=== PATIENT | female | born 1995 | race Hispanic/Latino ===

== ENCOUNTER 2017-12-24 22:29 | Emergency (ER) | payer BC ==
--- NOTE | 2017-12-25 01:08 | EDPHYS ---
Physician Documentation [facility] Name: Thao Lang Age: 22 yrs Sex: Female : 1995 Arrival Date: 12/24/2017 Time: 22:33 Bed 30 Private MD: ED Physician Kalyan Oliva HPI: 12/25 01:05 This 22 yrs old Female presents to ER via Ambulatory with complaints of Fever, pm1 Cough, Headache. 01:05 The patient reports fever, that was measured at 99 degrees Fahrenheit. Onset: The pm1 symptoms/episode began/occurred 9 day(s) ago. Modifying factors: there are no obvious modifying factors. Associated signs and symptoms: Pertinent positives: cough, headache, sore throat, Pertinent negatives: abdominal pain, chest pain, shortness of breath, Urinary symptoms. Severity of symptoms: in the emergency department the symptoms are unchanged. The patient has not recently seen a physician. Patient with non-productive cough, runny nose, nasal congestion, headache, and low grade fever of 99 since last Saturday. Patient without any chest pain or shortness of breath. 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 - Social history:: Smoking status: Patient/guardian denies using tobacco. - Ebola Screening: : No symptoms or risks identified at this time. ROS: 12/25 01:05 Constitutional: Negative for fever, chills, and weight loss, Eyes: Negative for injury, pm1 pain, redness, and discharge. Neck: Negative for injury, pain, and swelling, Cardiovascular: Negative for chest pain, palpitations, and edema. Abdomen/GI: Negative for abdominal pain, nausea, vomiting, diarrhea, and constipation, Back: Negative for injury and pain, : Negative for injury, bleeding, discharge, and swelling, MS/Extremity: Negative for injury and deformity, Skin: Negative for injury, rash, and discoloration. ENT: Positive for nasal discharge, sore throat, nasal congestion. Respiratory: Positive for cough, Negative for shortness of breath, sputum production, wheezing. Neuro: Positive for headache. Exam: 01:05 Constitutional: This is a well developed, well nourished patient who is awake, alert, pm1 and in no acute distress. Head/Face: Normocephalic, atraumatic. Eyes: Pupils equal round and reactive to light, extra-ocular motions intact. Lids and lashes normal. Conjunctiva and sclera are non-icteric and not injected. Cornea within normal limits. Periorbital areas with no swelling, redness, or edema. 01:05 Neck: Trachea midline, no thyromegaly or masses palpated, and no cervical lymphadenopathy. Supple, full range of motion without nuchal rigidity, or vertebral point tenderness. No Meningismus. Chest/axilla: Normal chest wall appearance and motion. Nontender with no deformity. No lesions are appreciated. Cardiovascular: Regular rate and rhythm with a normal S1 and S2. No gallops, murmurs, or rubs. Normal PMI, no JVD. No pulse deficits. Respiratory: Lungs have equal breath sounds bilaterally, clear to auscultation and percussion. No rales, rhonchi or wheezes noted. No increased work of breathing, no retractions or nasal flaring. Abdomen/GI: Soft, non-tender, with normal bowel sounds. No distension or tympany. No guarding or rebound. No evidence of tenderness throughout. Back: No spinal tenderness. No costovertebral tenderness. Full range of motion. Skin: Warm, dry with normal turgor. Normal color with no rashes, no lesions, and no evidence of cellulitis. MS/ Extremity: Pulses equal, no cyanosis. Neurovascular intact. Full, normal range of motion. 01:05 ENT: External ear(s): are unremarkable, Ear canal(s): are normal, TM's: are normal, Nose: is normal, Mouth: is normal. 01:05 Neuro: Orientation: is normal, Motor: is normal, strength is normal, Sensation: is normal, no obvious gross deficits. Vital Signs: 12/24 22:58 BP 112 / 48; Pulse 84; Resp 16; Temp 98.9; Pulse Ox 100% on R/A; Weight 108.86 kg; kr2 Height 5 ft. 4 in. (162.56 cm); Pain 0/10; 12/25 00:24 BP 91 / 49; Pulse 94; Pulse Ox 98% on R/A; rv 12/24 22:58 Body Mass Index 41.20 (108.86 kg, 162.56 cm) kr2 MDM: 12/24 23:51 Patient medically screened. pm1 12/25 01:06 Data reviewed: vital signs. Data interpreted: Pulse oximetry: on room air is 98 %. pm1 Interpretation: normal. Counseling: I had a detailed discussion with the patient and/or guardian regarding: the historical points, exam findings, and any diagnostic results supporting the discharge/admit diagnosis, lab results, the need for outpatient follow up, to return to the emergency department if symptoms worsen or persist or if there are any questions or concerns that arise at home. 12/24 23:58 Order name: Flu; Complete Time: 01:01 pm1 12/24 23:58 Order name: Strep; Complete Time: 01: pm1 12/25 00:54 Order name: Throat Culture EDMS Administered Medications: No medications were administered Disposition: 04:27 Co-signature as Attending Physician, Kalyan Oliva MD I agree with the assessment and wa plan of care. Disposition: 12/25/17 01:07 Discharged to Home. Impression: Acute upper respiratory infection, unspecified. - Condition is Stable. - Discharge Instructions: Upper Respiratory Infection, Adult. - Prescriptions for Tessalon Perles 100 mg Oral Capsule - take 1 capsule by ORAL route every 8 hours As needed; 15 capsule. - Medication Reconciliation Form, Thank You Letter, Antibiotic Education, Prescription Opioid Use, Work release form form. - Follow up: Emergency Department; When: As needed; Reason: Worsening of condition. Follow up: Private Physician; When: 2 - 3 days; Reason: Recheck today's complaints, Continuance of care, Re-evaluation by your physician. - Problem is new. - Symptoms have improved. Signatures: Dispatcher [employer] EDMS Iain Gonzales, LABORATORY CHIEF LABORATORY CHIEF pm1 Kalyan Oliva MD MD wa Reaves, Karey RN RN kr2 Travis Rodriguez RN RN rv Corrections: (The following items were deleted from the chart) 01:18 01:07 12/25/2017 01:07 Discharged to Home. Impression: Acute upper respiratory rv infection, unspecified. Condition is Stable. Forms are Medication Reconciliation Form, Thank You Letter, Antibiotic Education, Prescription Opioid Use. Follow up: Emergency Department; When: As needed; Reason: Worsening of condition. Follow up: Private Physician; When: 2 - 3 days; Reason: Recheck today's complaints, Continuance of care, Re-evaluation by your physician. Problem is new. Symptoms have improved. pm1
--- NOTE | 2017-12-25 01:08 | ER ---
Nurse's Notes [facility] Name: Thao Lang Age: 22 yrs Sex: Female : 1995 Arrival Date: 12/24/2017 Time: 22:33 Bed 30 Private MD: Diagnosis: Acute upper respiratory infection, unspecified Presentation: 12/24 22:55 Presenting complaint: Patient states: She has had fever, runny nose, migraine and cough kr2 since last Saturday. Denies pain at this time. States her temperature has been around 99.3. Transition of care: patient was not received from another setting of care. Onset of symptoms was December 22, 2017. Risk Assessment: Do you want to hurt yourself or someone else? Patient reports no desire to harm self or others. Initial Sepsis Screen: Does the patient meet any 2 criteria? No. Patient's initial sepsis screen is negative. Does the patient have a suspected source of infection? No. Patient's initial sepsis screen is negative. Care prior to arrival: None. 22:55 Method Of Arrival: Ambulatory [facility] 22:55 Acuity: IZABELLA 4 kr2 Triage Assessment: 22:56 Headache History: The patient has had previous headaches and this one is similar to kr2 previous episodes. General: Appears in no apparent distress. comfortable, Behavior is calm, cooperative, appropriate for age. Pain: Denies pain. Pain currently is 0 out of 10 on a pain scale. Pain began Saturday Also complains of no other associated symptoms. EENT: Oral mucosa is moist. Reports nasal discharge that is watery since Saturday. Neuro: Level of Consciousness is awake, alert, obeys commands, Oriented to person, place, time, situation, Appropriate for age. Cardiovascular: Capillary refill < 3 seconds in bilateral fingers Patient's skin is warm and dry. Respiratory: Reports cough that is non-productive, Airway is patent Respiratory effort is even, unlabored, Respiratory pattern is regular, symmetrical. GI: Abdomen is flat, non-distended, Bowel sounds present X 4 quads. Derm: Skin is intact, is healthy with good turgor, Skin is pink, warm \T\ dry. Musculoskeletal: Circulation, motion, and sensation intact. 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 - Social history:: Smoking status: Patient/guardian denies using tobacco. - Ebola Screening: : No symptoms or risks identified at this time. Screenin:59 Abuse screen: Denies threats or abuse. Denies injuries from another. Nutritional kr2 screening: No deficits noted. Tuberculosis screening: No symptoms or risk factors identified. Fall Risk None identified. Assessment: 23:40 Reassessment: Patient appears in no apparent distress at this time. Patient and/or kr2 family updated on plan of care and expected duration. Pain level reassessed. Patient is alert, oriented x 3, equal unlabored respirations, skin warm/dry/pink. Pain: Denies pain. 12/25 00:24 Reassessment: Patient appears in no apparent distress at this time. Patient and/or rv family updated on plan of care and expected duration. Pain level reassessed. Patient is alert, oriented x 3, equal unlabored respirations, skin warm/dry/pink. Vital Signs: 12/24 22:58 BP 112 / 48; Pulse 84; Resp 16; Temp 98.9; Pulse Ox 100% on R/A; Weight 108.86 kg; kr2 Height 5 ft. 4 in. (162.56 cm); Pain 0/10; 12/25 00:24 BP 91 / 49; Pulse 94; Pulse Ox 98% on R/A; rv 12/24 22:58 Body Mass Index 41.20 (108.86 kg, 162.56 cm) [facility] ED Course: 12/24 22:33 Patient arrived in ED. al2 22:53 Jo Ann Amezquita, RN is Primary Nurse. kr2 22:56 Triage completed. kr2 22:59 Arm band placed on left wrist. kr2 22:59 Patient has correct armband on for positive identification. Bed in low position. Call kr2 light in reach. Side rails up X 1. Adult w/ patient. Pulse ox on. NIBP on. Door closed. Head of bed elevated. 23:25 Iain Gonzales NP is PHCP. pm1 23:25 Kalyan Oliva MD is Attending Physician. pm1 12/25 00:24 Awaiting lab results. rv 00:25 Flu and/or RSV swab sent to lab. Strep swab sent to lab. rv 01:17 No provider procedures requiring assistance completed. Patient did not have IV access rv during this emergency room visit. Administered Medications: No medications were administered Outcome: 01:07 Discharge ordered by . pm1 01:17 Discharged to home ambulatory. rv 01:17 Condition: good 01:17 Discharge instructions given to patient, Instructed on discharge instructions, follow up and referral plans. medication usage, Demonstrated understanding of instructions, follow-up care, medications, Prescriptions given X 1. 01:18 Patient left the ED. rv Signatures: Iain Gonzales NP STUDENT OFFICER pm1 Jo Ann Amezquita, LARON RN Nidia Adrian Ronaldo, RN RN rv Corrections: (The following items were deleted from the chart) 01:17 01:17 Discharge instructions given to patient, Instructed on discharge instructions, rv follow up and referral plans. Demonstrated understanding of instructions, follow-up care, rv
[2017-12-25 01:39] VITALS: TEMP 98.9
[2017-12-25 01:40] VITALS: BP 91/49; O2SAT 98
== END 2017-12-25 01:18 | disposition home or self-care (01) ==
LOC: ER 22:29
DX: J06.9 Acute upper respiratory infection, unspecified (principal)
CPT/HCPCS: 87070; 87081; 87804; 99283

== ENCOUNTER 2019-11-09 15:55 | Emergency (ER) | payer BC ==
--- OUTSIDE RECORDS SUMMARY | 2019-11-09 15:58 | XMS REPORT | Continuity of Care Document ---
:1995 Author Organization [facility] t Address [address] [place] [address] Dr. Cho [address] [place] [id number] Care Team Providers Name Role Phone Unavailable Unavailable Unavailable Problems This patient has no known problems. Allergies, Adverse Reactions, Alerts This patient has no known allergies or adverse reactions. Medications This patient has no known medications. Procedures This patient has no known procedures. Results This patient has no known results.
[2019-11-09 16:55] LABS: Urine Blood TRACE (NEG); Urine Glucose NEGATIVE (NEG); Urine Protein NEGATIVE (NEG); Urine pH 6.5 (5.0-7.0)
[2019-11-09 18:08] LABS: Urine Bacteria 20-50 /HPF (<20); Urine Culture Reflex Order REFLEXED; Urine RBC <5 /HPF (NONE SEEN)
--- NOTE | 2019-11-09 18:10 | EDPHYS ---
Physician Documentation [facility] Name: Thao Lang Age: 24 yrs Sex: Female : 1995 Arrival Date: 11/09/2019 Time: 15:46 Bed 19 Private MD: ED Physician Delta Patel HPI: 11/08 16:39 This 24 yrs old Female presents to ER via EMS with complaints of Urinary jr8 Problem. 16:39 Onset: The symptoms/episode began/occurred gradually, 1 week(s) ago. Associated signs jr8 and symptoms: Pertinent positives: dysuria, low back pain. Modifying factors: The patient symptoms are alleviated by nothing, the patient symptoms are aggravated by urinating . The patient has not experienced similar symptoms in the past. The patient has not recently seen a physician. Patient stated that she has had burning, urgency, frequency, and some blood in urine for about a week. Has been trying OTC medications but still without relief. Now having low back pain . 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 - Social history:: Smoking status: Patient denies any tobacco usage or history of. ROS: 16:39 Eyes: Negative for injury, pain, redness, and discharge, ENT: Negative for injury, jr8 pain, and discharge, Neck: Negative for injury, pain, and swelling, Cardiovascular: Negative for chest pain, palpitations, and edema, Respiratory: Negative for shortness of breath, cough, wheezing, and pleuritic chest pain, Abdomen/GI: Negative for abdominal pain, nausea, vomiting, diarrhea, and constipation, MS/Extremity: Negative for injury and deformity, Skin: Negative for injury, rash, and discoloration, Neuro: Negative for headache, weakness, numbness, tingling, and seizure. 16:39 Back: Positive for pain at rest, Negative for decreased range of motion, pain with movement, radiated pain. 16:39 : Positive for urinary symptoms, hematuria, burning with urination, Negative for vaginal bleeding, vaginal discharge, vaginal itching, menstrual abnormality, missed period. Exam: 16:39 Constitutional: This is a well developed, well nourished patient who is awake, alert, jr8 and in no acute distress. Cardiovascular: Regular rate and rhythm with a normal S1 and S2. No gallops, murmurs, or rubs. Normal PMI, no JVD. No pulse deficits. Respiratory: Lungs have equal breath sounds bilaterally, clear to auscultation and percussion. No rales, rhonchi or wheezes noted. No increased work of breathing, no retractions or nasal flaring. Abdomen/GI: Soft, non-tender, with normal bowel sounds. No distension or tympany. No guarding or rebound. No evidence of tenderness throughout. Skin: Warm, dry with normal turgor. Normal color with no rashes, no lesions, and no evidence of cellulitis. MS/ Extremity: Pulses equal, no cyanosis. Neurovascular intact. Full, normal range of motion. Neuro: Awake and alert, GCS 15, oriented to person, place, time, and situation. Cranial nerves II-XII grossly intact. Motor strength 5/5 in all extremities. Sensory grossly intact. Cerebellar exam normal. Normal gait. 16:39 Back: pain, is absent, ROM is normal, normal spinal alignment noted, CVA tenderness, is absent, muscle spasm, is not present. Vital Signs: 15:53 BP 142 / 85; Pulse 60; Resp 17; Temp 98.7; Pulse Ox 100% ; Pain 10/10; jl7 MDM: 16:01 Patient medically screened. 8 16:39 Data reviewed: vital signs, nurses notes, lab test result(s). Data interpreted: Pulse [facility] oximetry: on room air is 100 %. Interpretation: normal. Counseling: I had a detailed discussion with the patient and/or guardian regarding: the historical points, exam findings, and any diagnostic results supporting the discharge/admit diagnosis, lab results. 11/08 16:05 Order name: Urine Microscopic Only; Complete Time: 18:09 [facility] 11/08 16:43 Order name: Urine Dipstick--Ancillary (enter results); Complete Time: 17:42 eb 11/08 16:05 Order name: Urine Test (obtain specimen); Complete Time: 17:17 [facility] 11/08 16:05 Order name: Urine Dipstick-Ancillary (obtain specimen); Complete Time: 17:17 jl7 11/08 16:43 Order name: Urine --Ancillary (enter results); Complete Time: 17:42 eb 11/08 18:10 Order name: Urine Culture EDMO Administered Medications: No medications were administered Disposition: 11/09 05:56 Co-signature as Attending Physician, Delta Patel MD. rn Disposition: 11/09/19 18:10 Discharged to Home. Impression: Acute cystitis with hematuria. - Condition is Stable. - Discharge Instructions: Urinary Tract Infection, Adult. - Prescriptions for Bactrim DS 800- 160 mg Oral Tablet - take 1 tablet by ORAL route every 12 hours for 7 days; 14 tablet. - Medication Reconciliation Form, Thank You Letter, Antibiotic Education, Prescription Opioid Use form. - Follow up: Private Physician; When: 5 - 6 days; Reason: Recheck today's complaints, Continuance of care, Re-evaluation by your physician. - Problem is new. - Symptoms have improved. Signatures: Dispatcher [employer] EDMO Delta Patel MD MD rn Roszak, Josh, PA PA jr8 Norma Natarajan RN RN jl7 Corrections: (The following items were deleted from the chart) 11/08 18:59 18:10 11/09/2019 18:10 Discharged to Home. Impression: Acute cystitis with hematuria. jl7 Condition is Stable. Forms are Medication Reconciliation Form, Thank You Letter, Antibiotic Education, Prescription Opioid Use. Follow up: Private Physician; When: 5 - 6 days; Reason: Recheck today's complaints, Continuance of care, Re-evaluation by your physician. Problem is new. Symptoms have improved. jr8
--- NOTE | 2019-11-09 18:10 | ER ---
Nurse's Notes [facility] Name: Thao Lang Age: 24 yrs Sex: Female : 1995 Arrival Date: 11/09/2019 Time: 15:46 Bed 19 Private MD: Diagnosis: Acute cystitis with hematuria Presentation: 11/08 15:53 Chief complaint: EMS states: Burning and painful urination x 1 week. Coronavirus jl7 screen: Client denies travel out of the [place] in the last 14 days. At this time, the client does not indicate any symptoms associated with coronavirus-19. Ebola Screen: No symptoms or risks identified at this time. Initial Sepsis Screen: Does the patient meet any 2 criteria? No. Patient's initial sepsis screen is negative. Does the patient have a suspected source of infection? No. Patient's initial sepsis screen is negative. Risk Assessment: Do you want to hurt yourself or someone else? Patient reports no desire to harm self or others. Onset of symptoms was November 03, 2019. Care prior to arrival: None. 15:53 Method Of Arrival: EMS: [facility] 15:53 Acuity: IZABELLA 4 jl7 Triage Assessment: 15:46 General: Appears in no apparent distress. uncomfortable, Behavior is cooperative. Pain: jl7 Complains of pain in pelvis Pain currently is 10 out of 10 on a pain scale. Pain began x 1 month. Neuro: Level of Consciousness is awake, alert, obeys commands, Oriented to person, place, time, situation. Cardiovascular: Patient's skin is warm and dry. Respiratory: Airway is patent Respiratory effort is even, unlabored, Respiratory pattern is regular, symmetrical. : Reports burning with urination. Derm: Skin is pink, warm \T\ dry. 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 - Social history:: Smoking status: Patient denies any tobacco usage or history of. Screenin:00 Abuse screen: Denies threats or abuse. Denies injuries from another. Nutritional jl7 screening: No deficits noted. Tuberculosis screening: No symptoms or risk factors identified. Fall Risk None identified. Assessment: 16:00 General: See triage assessment. jl7 17:00 Reassessment: Patient appears in no apparent distress at this time. No changes from jl7 previously documented assessment. Patient and/or family updated on plan of care and expected duration. Pain level reassessed. Patient is alert, oriented x 3, equal unlabored respirations, skin warm/dry/pink. 18:00 Reassessment: Patient appears in no apparent distress at this time. No changes from jl7 previously documented assessment. Patient and/or family updated on plan of care and expected duration. Pain level reassessed. Patient is alert, oriented x 3, equal unlabored respirations, skin warm/dry/pink. Vital Signs: 15:53 BP 142 / 85; Pulse 60; Resp 17; Temp 98.7; Pulse Ox 100% ; Pain 10/10; jl7 ED Course: 15:46 Patient arrived in ED. jl7 15:46 Arm band placed on right wrist. jl7 15:55 Triage completed. jl7 15:59 Washington Reinoso PA is PHCP. jr8 15:59 Delta Patel MD is Attending Physician. jr8 16:00 Patient has correct armband on for positive identification. Placed in gown. Bed in low jl7 position. Call light in reach. Side rails up X 1. Pulse ox on. NIBP on. 16:00 Urine collected: clean catch specimen, clear. jl7 17:17 Norma Natarajan RN is Primary Nurse. jl7 18:58 No provider procedures requiring assistance completed. Patient did not have IV access jl7 during this emergency room visit. Administered Medications: No medications were administered Outcome: 18:10 Discharge ordered by . jr8 18:58 Discharged to home ambulatory. jl7 18:58 Condition: stable 18:58 Discharge instructions given to patient, Instructed on discharge instructions, follow up and referral plans. medication usage, Demonstrated understanding of instructions, follow-up care, medications, Prescriptions given X 1. 18:59 Patient left the ED. jl7 Signatures: Washington Reinoso PA PA jr8 Norma Natarajan, LARON RN jl7
== END 2019-11-09 18:59 | disposition home or self-care (01) ==
LOC: ER 15:55
DX: N30.01 Acute cystitis with hematuria (principal)
CPT/HCPCS: 81003; 81015; 81025; 87086; 87088; 99284

== ENCOUNTER 2020-02-22 08:20 | Emergency (ER) | payer BC ==
--- NOTE | 2020-02-22 08:51 | ER ---
Nurse's Notes [facility] Name: Thao Lang Age: 25 yrs Sex: Female : 1995 Arrival Date: 02/22/2020 Time: 08:27 Bed 19 Private MD: Diagnosis: Urinary tract infection, site not specified Presentation: 02/21 08:30 Chief complaint: Patient states: Burning with urination and frequency that began last ss night. Coronavirus screen: Client denies travel out of the [place] in the last 14 days. Ebola Screen: Patient denies exposure to infectious person. Patient denies travel to an Ebola-affected area in the 21 days before illness onset. Initial Sepsis Screen: Does the patient meet any 2 criteria? No. Patient's initial sepsis screen is negative. Does the patient have a suspected source of infection? Yes: Dysuria/Frequency/Urgency/UTI. Risk Assessment: Do you want to hurt yourself or someone else? Patient reports no desire to harm self or others. Onset of symptoms was February 21, 2020. 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 - Social history:: Smoking status: Patient denies any tobacco usage or history of. - Family history:: not pertinent. - Hospitalizations: : No recent hospitalization is reported. Screenin:34 Abuse screen: Denies threats or abuse. Denies injuries from another. Nutritional ss screening: No deficits noted. Tuberculosis screening: Never had TB. Fall Risk None identified. Assessment: 08:34 General: Appears in no apparent distress. comfortable, Behavior is calm, cooperative, ss Denies fever, feeling ill, fatigue, chills. Pain: Denies pain. Neuro: Level of Consciousness is awake, alert, obeys commands, Oriented to person, place, time, situation. Respiratory: Airway is patent Respiratory effort is even, unlabored, Respiratory pattern is regular, symmetrical. GI: Patient currently denies diarrhea, nausea, vomiting. : Reports burning with urination, urinary frequency, began last night. Derm: Skin is intact, is healthy with good turgor, Skin is pink, warm \T\ dry. normal. Musculoskeletal: Circulation, motion, and sensation intact. Range of motion: intact in all extremities, Swelling absent. Vital Signs: 08:30 Resp 16; Weight 113.4 kg; Height 5 ft. 5 in. (165.10 cm); Pain 0/10; 08:32 Pulse 72; Temp 97.6(TE); Pulse Ox 100% on R/A; ss 08:30 Body Mass Index 41.60 (113.40 kg, 165.10 cm) ED Course: 08:27 Patient arrived in ED. mr 08:31 Triage completed. 08:32 Arm band placed on left wrist. 08:34 Naya Beck, LARON is Primary Nurse. 08:34 Patient has correct armband on for positive identification. Bed in low position. Call light in reach. 08:45 Delta Patel MD is Attending Physician. rn 08:47 Urine collected: clean catch specimen, clear. 3 08:51 Urine Microscopic Only Sent. 3 09:06 No provider procedures requiring assistance completed. Patient did not have IV access ss during this emergency room visit. Administered Medications: No medications were administered Outcome: 08:50 Discharge ordered by . rn 09:06 Discharged to home ambulatory. 09:06 Condition: good 09:06 Demonstrated understanding of instructions, follow-up care, medications. 09:07 Patient left the ED. Signatures: Dena Briones mr Delta Patel MD MD rn Smirch, Shelby, RN RN Dulce Wilder [facility]
--- NOTE | 2020-02-22 08:51 | EDPHYS ---
Physician Documentation [facility] Name: Thao Lang Age: 25 yrs Sex: Female : 1995 Arrival Date: 02/22/2020 Time: 08:27 Bed 19 Private MD: ED Physician Delta Patel HPI: 02/21 08:48 This 25 yrs old Female presents to ER via Ambulatory with complaints of rn Urinary Problem. 08:48 The patient presents with urinary symptoms, dysuria. Onset: The symptoms/episode rn began/occurred last night. Modifying factors: The symptoms are alleviated by nothing, the symptoms are aggravated by urinating. Associated signs and symptoms: Pertinent negatives: fever, vaginal discharge. Severity of symptoms: At their worst the symptoms were mild, in the emergency department the symptoms are unchanged. The patient has experienced a previous episode. The patient has not recently seen a physician. 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 - Social history:: Smoking status: Patient denies any tobacco usage or history of. - Family history:: not pertinent. - Hospitalizations: : No recent hospitalization is reported. ROS: 08:48 Constitutional: Negative for fever, chills, and weight loss, Eyes: Negative for injury, rn pain, redness, and discharge, Cardiovascular: Negative for chest pain, palpitations, and edema, Respiratory: Negative for shortness of breath, cough, wheezing, and pleuritic chest pain, Abdomen/GI: Negative for abdominal pain, nausea, vomiting, diarrhea, and constipation, Back: Negative for injury and pain, : + dysuria MS/Extremity: Negative for injury and deformity, Skin: Negative for injury, rash, and discoloration, Neuro: Negative for headache, weakness, numbness, tingling, and seizure. Exam: 08:48 Constitutional: This is a well developed, well nourished patient who is awake, alert, rn and in no acute distress. Ambulatory to room. Head/Face: Normocephalic, atraumatic. Cardiovascular: Regular rate and rhythm. No pulse deficits. Respiratory: No increased work of breathing, no retractions or nasal flaring. Abdomen/GI: soft, non-tender Back: No spinal tenderness. No costovertebral tenderness. Full range of motion. Skin: Warm, dry MS/ Extremity: Pulses equal, no cyanosis. Neurovascular intact. Full, normal range of motion. Equal circumference. Neuro: Awake and alert, GCS 15 Vital Signs: 08:30 Resp 16; Weight 113.4 kg; Height 5 ft. 5 in. (165.10 cm); Pain 0/10; ss 08:32 Pulse 72; Temp 97.6(TE); Pulse Ox 100% on R/A; ss 08:30 Body Mass Index 41.60 (113.40 kg, 165.10 cm) ss MDM: 08:45 Patient medically screened. rn 08:48 Differential diagnosis: urinary tract infection. Data reviewed: vital signs, nurses rn notes, lab test result(s), urinalysis, and as a result, I will discharge patient. Counseling: I had a detailed discussion with the patient and/or guardian regarding: the historical points, exam findings, and any diagnostic results supporting the discharge/admit diagnosis, lab results, the need for outpatient follow up, to return to the emergency department if symptoms worsen or persist or if there are any questions or concerns that arise at home. Special discussion: I discussed with the patient/guardian in detail that at this point there is no indication for admission to the hospital. It is understood, however, that if the symptoms persist or worsen the patient needs to return immediately for re-evaluation. 02/21 08:45 Order name: Urine Microscopic Only rn 02/21 08:48 Order name: Urine Dipstick--Ancillary (enter results) bd 02/21 08:45 Order name: Urine Test (obtain specimen); Complete Time: 08:48 rn 02/21 08:45 Order name: Urine Dipstick-Ancillary (obtain specimen); Complete Time: 08:48 rn 02/21 08:51 Order name: Urine --Ancillary (enter results) bd Administered Medications: No medications were administered Disposition: 02/22/20 08:50 Discharged to Home. Impression: Urinary tract infection, site not specified. - Condition is Stable. - Discharge Instructions: Dysuria, Urinary Tract Infection, Adult. - Prescriptions for Cipro 500 mg Oral Tablet - take 1 tablet by ORAL route every 12 hours for 7 days; 14 tablet. - Medication Reconciliation Form, Thank You Letter, Antibiotic Education, Prescription Opioid Use, Work release form form. - Follow up: Private Physician; When: As needed; Reason: Recheck today's complaints, Re-evaluation by your physician. - Problem is new. - Symptoms are unchanged. Signatures: Dispatcher [employer] EDSD Delta Patel MD MD rn Smirch, Shelby, RN RN ss Corrections: (The following items were deleted from the chart) 09:07 08:50 02/22/2020 08:50 Discharged to Home. Impression: Urinary tract infection, site ss not specified. Condition is Stable. Forms are Medication Reconciliation Form, Thank You Letter, Antibiotic Education, Prescription Opioid Use. Follow up: Private Physician; When: As needed; Reason: Recheck today's complaints, Re-evaluation by your physician. Problem is new. Symptoms are unchanged. rn
[2020-02-22 09:07] LABS: Urine Blood NEGATIVE (NEG); Urine Glucose NEGATIVE (NEG); Urine Protein NEGATIVE (NEG); Urine Specific Gravity 1.015 (1.005-1.030); Urine pH 6.5 (5.0-7.0)
[2020-02-22 09:07] LABS: Urine Specific Gravity 1.015 (1.005-1.030)
[2020-02-22 09:26] VITALS: TEMP 97.6; O2SAT 100
--- OUTSIDE RECORDS SUMMARY | 2020-02-22 09:31 | XMS REPORT | Continuity of Care Document ---
:1995 Author Organization [facility] t Address [address] [place] [address] Dr. Cho [address] [place] [id number] Care Team Providers Name Role Phone Unavailable Unavailable Unavailable Problems This patient has no known problems. Allergies, Adverse Reactions, Alerts This patient has no known allergies or adverse reactions. Medications This patient has no known medications. Procedures This patient has no known procedures. Results This patient has no known results.
[2020-02-22 09:41] LABS: Urine Bacteria <20 /HPF (<20); Urine RBC <5 /HPF (NONE SEEN)
== END 2020-02-22 09:07 | disposition home or self-care (01) ==
LOC: ER 08:20
DX: N39.0 Urinary tract infection, site not specified (principal)
CPT/HCPCS: 81003; 81015; 81025; 87086; 87088; 99282

== ENCOUNTER 2022-09-18 00:43 | Emergency (ER) | payer BC, OTHER ==
--- OUTSIDE RECORDS SUMMARY | 2022-09-18 00:49 | XMS REPORT | Continuity of Care Document ---
:1995 Author Organization [facility] t Address [address] [place] [address] Care Team Providers Name Role Phone ESTEVAN ADAMS Primary Care Physician Unavailable JULISSA MICHELE Attending Clinician Unavailable JENNIFER ANSARI Attending Clinician Unavailable SIRIA ANDERSON Attending Clinician Unavailable ESTEVAN ADAMS Attending Clinician Unavailable Bryan CNEstevan Rubin Attending Clinician [phone] Doctor Unassigned, [place] Attending Clinician Unavailable TIANA ANTONIO Attending Clinician Unavailable Tiana Antonio MD [facility]ending [facility]ending [facility]ician Unavailable Jennifer Ansari CNM Attending Clinician Siria Boo Attending Clinician JESSIKA MANRIQUE Attending Clinician Unavailable Burton MARC, Jessika Attending Clinician Unknown, Attending Attending Clinician Unavailable Maisha West RN Attending Clinician Unavailable EASTON RIOJAS Attending Clinician Unavailable Nurse, Naun Lima Exp Cprit Obgyn Attending Clinician Unavail able JODEE MALIK Attending Clinician Unavailable Jodee Malik MD Attending Clinician Zbigniew Fernandez MD Attending Clinician Glen Mcgraw MD Attending Clinician Leonel Mason MD Attending Clinician Ultrasound, Ang-Mfm Attending Clinician Unavailable Katelyn Murillo MD Attending Clinician KATELYN MURILLO Attending Clinician Unavailable KATELYN MURILLO Attending Clinician Unavailable Lab, Naun-Rmchp Attending Clinician Unavailable Deanne WHCNP, Aaron O Attending Clinician [phone] AARON ALICEA Attending Clinician Unavailable Provider, Ang-Rmch[facility] Temp Attending Clinician Unavailable Silvana Venegas MD Attending Clinician SILVANA VENEGAS Attending Clinician Unavailable SILVANA VENEGAS Attending Clinician Unavailable Nicole RAMÍREZP, Bo Hunt Attending Clinician BO RIVERA Attending Clinician Unavailable Onofre RAMÍREZP, Nguyễn Attending Clinician AMAYA GURROLA Attending Clinician Unavailable Casey RING CUTTER LATHE OPERATOR, Amaya Attending Clinician Palmira Phillips Attending Clinician Unavailable Yair Escoto MD Attending Clinician Gianni Whitaker MD Attending Clinician Robbie Wolfe MD, Cristin Attending Clinician [phone] Julissa Michele MD Attending Clinician Reji Murillo DO Attending Clinician Seth RING CUTTER LATHE OPERATOR, Emma Attending Clinician Zoe Toledo MD Attending Clinician Provider, [facility] Attending Clinician Unavailable Bony RAMÍREZP, Saadia Attending Clinician SAADIA HALEY Attending Clinician Unavailable Omar RAMÍREZP, Delano Attending Clinician DELANO HANKINS Attending Clinician Unavailable YOVANY DIOR Attending Clinician Unavailable JAIME CLEMENT Attending Clinician Unavailable JODEE MALIK Admitting Clinician Unavailable Jodee Malik MD Admitting Clinician Julissa Michele MD Admitting Clinician Payers Payer Name Policy Type Policy Number Effective Date Expiration Date S [id number] 2016 EMPLOYEE PLAN 00:00:00 [place] FOZ[place] [id number] 2015 HEALTH 00:00:00 MEDICAID PENDING PENDING 2020 00:00:00 Problems Condition Condition Condition Status Onset Resolution Last Treating Co mments Source Name Details Category Date Date Treatment Clinician Date Folliculit Folliculit Disease Active U nivers is is 4-12 ity of 00:00: [place] 00 Medical Branch Flu Flu Disease Active Univers vaccine vaccine 3-30 ity of need need 00:00: [address] Branch Vaginal Vaginal Disease Active Univers lesion lesion 3-30 ity of 00:00: [address] Branch Research Research Disease Active Overview: Un francoise study study 2-16 Formattin ity of patient patient 00:00: g of this [place] 00 note Medical might be Branch different from the original. PACT (fellow) Elevated Elevated Disease Active Unive rs blood-pres blood-pres 2-15 it y of sure sure 00:00: [place] reading, reading, 00 Medica l without without Branch diagnosis diagnosis of of hypertensi hypertensi on on COVID COVID Disease Active Univers 2-01 ity of 00:00: [place] 00 [facility] Branch GBS (group GBS (group Disease Active Overview : Univers B B 1-27 Formattin ity of Streptococ Streptococ 00:00: g of this [place] cus cus 00 note Medical carrier), carrier), might be Br anch +RV +RV different culture, culture, from the currently currently original. Address in labor and delivery. Upper Upper Disease Active Univers respirator respirator 1-18 it y of y symptom y symptom 00[place] Anemia of Anemia of Disease Active 2020-03 Uni vers mother in mother in 2-16 ity of , , [place] antepartum antepartum 00 Me dical Branch Abnormal Abnormal Disease Active 2020-03 Unive rs quad quad 2-16 ity of screen screen 00:00: [place] 00 Medical Branch Abnormal Abnormal Disease Active Overview: Un francoise glandular glandular 8-04 Formattin i ty of Papanicola Papanicola 00:00: g of this [place] ou smear ou smear 00 note Medica l of cervix of cervix might be Br anch different from the original. LGSIL on 2020 pap smear, needs repeat in 12 months Supervisio Supervisio Disease Active U nivers n of high n of high 7-19 ity of risk risk 00:00: [place] 00 [facility] in third in third Branch trimester trimester SAB SAB Disease Active Univers (spontaneo (spontaneo - it y of us us 00:00: [place] ) ) 00 [facility] Disease Active Uni vers in first in first - [place] of [place] with 00 Medical history of history of Br anch ectopic ectopic Primigravi Primigravi Disease Active U nivers da in da in - ity of third third 00:00: [place] trimester trimester 00 [facility] BMI BMI Disease Active Univers 45.0-49.9, 45.0-49.9, -19 it y of adult adult 00:00: [place] 00 Medical Branch History of History of Disease Active U nivers ectopic ectopic 4-02 [place] Screening Screening Disease Active Uni vers examinatio examinatio 2-16 it y of n for STD n for STD [place] ([place]ually (sexually 00 [facility] transmitte transmitte Br anch d disease) d disease) Morbid Morbid Disease Active Univers obesity obesity 1-06 ity of 00:00: [address] Allergies, Adverse Reactions, Alerts Allergy Allergy Status Severity Reaction(s) Onset Inactive Treating Comm ents Source Name Type Date Date Clinician NO KNOWN Drug Active Univers ALLERGIE Class ity of S [facility] Social History Social Habit Start Date Stop Date Quantity Comments Source History SDOH University o f Alcohol Frequency [facility] edical Branch History SDSD University o f Alcohol Std [place] Medical Drinks Branch History [facility] o f Alcohol Binge [place] Medic al Branch Exposure to 2022-04-20 2022-04-30 Not sure [facility] SARS-CoV-2 00:00:00 10:31:00 [facility] (event) Branch Alcohol intake 2022-04-30 2022-04-30 Ex-drinker University of 00:00:00 00:00:00 (finding) [facility] Tobacco use and 2021-12-06 2021-12-06 Smokeless tobacco Un iversity of exposure 00:00:00 00:00:00 non-user [facility] Alcohol Comment 2020-06-24 2020-06-24 once a week Universi ty of 00:00:00 00:00:00 [facility] Sex [birth year] At [birth year] Universit y of 00:00:00 00:00:00 [facility] Smoking Status Start Date Stop Date Source Never smoked tobacco [facility] Medications Ordered Filled Start Stop Current Ordering Indication Dosage Frequency Signature Comments Components Source Medication Medication Date Date Medication? Clinician (SIG) Name Name copper 2022- No [id number] 1{IUD} Uni vers (PARAGARD T 2- 02-06 ity of 380A) IUD 1 17:45: 17:01 [place] Intra 00 :00 Medical Uterine Branch Device copper 2022- No [id number] 1{IUD} 1 Intra Univers (PARAGARD T 2-06 02-06 Uterine ity of 380A) IUD 1 17:45: 17:01 [place] Intra [place] :00 Intrauteri Medical Uterine ne, ONCE, Branch Device 1 dose, On Sat04/30/22 at 1145, Routine copper 2022- No [id number] 1{IUD} Uni vers (PARAGARD T 2- 02-06 ity of 380A) IUD 1 17:45: 17:01 [place] Intra 00 :00 Medical Uterine Branch Device copper 2022- No [id number] 1{IUD} 1 Intra Univers (PARAGARD T 2-06 02-06 Uterine ity of 380A) IUD 1 17:45: 17:01 [place] Intra 00 :00 Intrauteri Medical Uterine ne, ONCE, Branch Device 1 dose, On Sat04/30/22 at 1145, Routine amoxicillin 2021-03- No [id number] 1{tbl} Take 1 Univers -clavulanat 1-02 11-10 tablet by it y of e 00:00: 05:59 mouth in [place] (AUGMENTIN) 00 :00 the Medical 875-125 mg morning Branch per tablet and 1 tablet in the evening. Do all this for 7 days. amoxicillin 2021-03- No [id number] 1{tbl} Take 1 Univers -clavulanat - 11-10 tablet by it y of e 00:00: 05:59 mouth in [place] (AUGMENTIN) 00 :00 the Medical 875-125 mg morning Branch per tablet and 1 tablet in the evening. Do all this for 7 days. phenazopyri 2021-03- No [id number] 200mg Take 2 Univers dine 100 mg 03-26 11-05 tablets by i ty of tablet 00:00: 04:59 mouth in [place] 00 :00 the Medical morning Branch and 2 tablets at noon and 2 tablets in the evening. Do all this for 2 days. phenazopyri 2021-03- No [id number] 200mg Take 2 Univers dine 100 mg 03-26-05 tablets by i ty of tablet 00:00: 04:59 mouth in [place] 00 :00 the Medical morning Branch and 2 tablets at noon and 2 tablets in the evening. Do all this for 2 days. levonorgest Yes [id number] 1{tbl} Take 1 Univers rel-ethinyl 9-14 tablet by ity of estradiol 00:00: mouth in [facility] (ONYX) 00 the Medical 0.1-20 morning. Branch mg-mcg per tablet levonorgest Yes [id number] 1{tbl} Take 1 Univers rel-ethinyl 9-14 tablet by ity of estradiol 00:00: mouth in [facility] (SRONYX) 00 the Medical 0.1-20 morning. Branch mg-mcg per tablet levonorgest Yes [id number] 1{tbl} Take 1 Univers rel-ethinyl 9-14 tablet by ity of estradiol 00:00: mouth in [facility] (SRONYX) 00 the Medical 0.1-20 morning. Branch mg-mcg per tablet levonorgest 0 Yes [id number] 1{tbl} Take 1 Univers rel-ethinyl 9-14 tablet by ity of estradiol 00:00: mouth in [facility] (SRONYX) 00 the Medical 0.1-20 morning. Branch mg-mcg per tablet levonorgest 2-0 Yes [id number] 1{tbl} Take 1 Univers rel-ethinyl 9-14 tablet by ity of estradiol [place] (SRONYX[place] 00 the Medical 0.1-20 morning. Branch mg-mcg per tablet levonorgest 2022-0 Yes [id number] 1{tbl} Take 1 Univers rel-ethinyl 9-14 tablet by ity of estradiol [place]:00: [place] (SRONYX[place] 00 the Medical 0.1-20 morning. Branch mg-mcg per tablet levonorgest 2-0 Yes [id number] 1{tbl} Take 1 Univers rel-ethinyl 9-14 tablet by ity of estradiol [place]: [place] (SRONYX[place] 00 the Medical 0.1-20 morning. Branch mg-mcg per tablet levonorgest 2-0 Yes [id number] 1{tbl} Take 1 Univers rel-ethinyl 9-14 tablet by ity of estradiol 00:00: [place] (SRONYX[place] 00 the Medical 0.1-20 morning. Branch mg-mcg per tablet levonorgest 2-0 Yes [id number] 1{tbl} Take 1 Univers rel-ethinyl 9-14 tablet by ity of estradiol 00:00: [place] (SRONYX[place] 00 the Medical 0.1-20 morning. Branch mg-mcg per tablet levonorgest 2-0 Yes [id number] 1{tbl} Take 1 Univers rel-ethinyl 9-14 tablet by ity of estradiol 00:00: [place] (SRONYX[place] 00 the Medical 0.1-20 morning. Branch mg-mcg per tablet levonorgest 2022-0 Yes [id number] 1{tbl} Take 1 Univers rel-ethinyl 9-14 tablet by ity of estradiol 00:00: [place] (SRONYX[place] 00 the Medical 0.1-20 morning. Branch mg-mcg per tablet levonorgest 2-0 Yes [id number] 1{tbl} Take 1 Univers rel-ethinyl 9-14 tablet by ity of estradiol 00:00: [place] (SRONYX[place] 00 the Medical 0.1-20 morning. Branch mg-mcg per tablet levonorgest 2021-0 Yes [id number] 1{tbl} Take 1 Univers rel-ethinyl 9-14 tablet by ity of estradiol 00:00: [place] (SRONYX[place] 00 the Medical 0.1-20 morning. Branch mg-mcg per tablet levonorgest 2021-0 Yes [id number] 1{tbl} Take 1 Univers rel-ethinyl 9-14 tablet by ity of estradiol 00:00: [place] (SRONYX[place] 00 the Medical 0.1-20 morning. Branch mg-mcg per tablet levonorgest 2021-0 Yes [id number] 1{tbl} Take 1 Univers rel-ethinyl 9-14 tablet by ity of estradiol 00:00: [place] (SRONYX[place] 00 the Medical 0.1-20 morning. Branch mg-mcg per tablet levonorgest 2021-0 Yes [id number] 1{tbl} Take 1 Univers rel-ethinyl 9-14 tablet by ity of estradiol 00:00: [place] (SRONYX[place] 00 the Medical 0.1-20 morning. Branch mg-mcg per tablet levonorgest 2021-0 Yes [id number] 1{tbl} Take 1 Univers rel-ethinyl 9-14 tablet by ity of estradiol 00:00: [place] (SRONYX[place] 00 the Medical 0.1-20 morning. Branch mg-mcg per tablet levonorgest 2021-0 Yes [id number] 1{tbl} Take 1 Univers rel-ethinyl 9-14 tablet by ity of estradiol 00:00: [place] (SRONYX[place] 00 the Medical 0.1-20 morning. Branch mg-mcg per tablet levonorgest 2-0 Yes [id number] 1{tbl} Take 1 Univers rel-ethinyl 9-14 tablet by ity of estradiol 00:00: [place] (SRONYX[place] 00 the Medical 0.1-20 morning. Branch mg-mcg per tablet levonorgest 2021-0 Yes [id number] 1{tbl} Take 1 Univers rel-ethinyl 9-14 tablet by ity of estradiol 00:00: [place] (SRONYX[place] 00 the Medical 0.1-20 morning. Branch mg-mcg per tablet levonorgest 0 Yes [id number] 1{tbl} Take 1 Univers rel-ethinyl 9-14 tablet by ity of estradiol 00:00: [place] (SRONYX[place] 00 the Medical 0.1-20 morning. Branch mg-mcg per tablet ondansetron Yes [id number] 4mg Take 1 Univers 4 mg 4-11 tablet by ity of disintegrat 00:00: mouth [place] ing tablet 00 every 8 Medica l (eight) Branch hours as needed for Nausea and Vomiting (N/V). ondansetron Yes [id number] 4mg Take 1 Univers 4 mg 4-11 tablet by ity of disintegrat 00:00: mouth [place] ing tablet 00 every 8 Medica l (eight) Branch hours as needed for Nausea and Vomiting (N/V). ondansetron Yes [id number] 4mg Take 1 Univers 4 mg 4-11 tablet by ity of disintegrat 00:00: mouth [place] ing tablet 00 every 8 Medica l (eight) Branch hours as needed for Nausea and Vomiting (N/V). ondansetron 0 Yes [id number] 4mg Take 1 Univers 4 mg 4-11 tablet by ity of disintegrat 00:00: mouth [place] ing tablet 00 every 8 Medica l (eight) Branch hours as needed for Nausea and Vomiting (N/V). ondansetron 2021-0 Yes [id number] 4mg Take 1 Univers 4 mg 4-11 tablet by ity of disintegrat 00:00: mouth [place] ing tablet 00 every 8 Medica l (eight) Branch hours as needed for Nausea and Vomiting (N/V). ondansetron 2021-0 Yes [id number] 4mg Take 1 Univers 4 mg 4-11 tablet by ity of disintegrat 00:00: mouth [place] ing tablet 00 every 8 Medica l (eight) Branch hours as needed for Nausea and Vomiting (N/V). ondansetron 2021-0 Yes [id number] 4mg Take 1 Univers 4 mg 4-11 tablet by ity of disintegrat 00:00: mouth [place] ing tablet 00 every 8 Medica l (eight) Branch hours as needed for Nausea and Vomiting (N/V). ondansetron 2-0 Yes [id number] 4mg Take 1 Univers 4 mg 4-11 tablet by ity of disintegrat 00:00: mouth [place] ing tablet 00 every 8 Medica l (eight) Branch hours as needed for Nausea and Vomiting (N/V). ondansetron 2-0 Yes [id number] 4mg Take 1 Univers 4 mg 4-11 tablet by ity of disintegrat 00:00: mouth [place] ing tablet 00 every 8 Medica l (eight) Branch hours as needed for Nausea and Vomiting (N/V). ondansetron 2-0 Yes [id number] 4mg Take 1 Univers 4 mg 4-11 tablet by ity of disintegrat 00:00: mouth [place] ing tablet 00 every 8 Medica l (eight) Branch hours as needed for Nausea and Vomiting (N/V). ondansetron 2021-0 Yes [id number] 4mg Take 1 Univers 4 mg 4-11 tablet by ity of disintegrat 00:00: mouth [place] ing tablet 00 every 8 Medica l (eight) Branch hours as needed for Nausea and Vomiting (N/V). ondansetron 2-0 Yes [id number] 4mg Take 1 Univers 4 mg 4-11 tablet by ity of disintegrat 00:00: mouth [place] ing tablet 00 every 8 Medica l (eight) Branch hours as needed for Nausea and Vomiting (N/V). ondansetron 2-0 Yes [id number] 4mg Take 1 Univers 4 mg 4-11 tablet by ity of disintegrat 00:00: mouth [place] ing tablet 00 every 8 Medica l (eight) Branch hours as needed for Nausea and Vomiting (N/V). ondansetron 2-0 Yes [id number] 4mg Take 1 Univers 4 mg 4-11 tablet by ity of disintegrat 00:00: mouth [place] ing tablet 00 every 8 Medica l (eight) Branch hours as needed for Nausea and Vomiting (N/V). ondansetron 2022-0 Yes [id number] 4mg Take 1 Univers 4 mg 4-11 tablet by ity of disintegrat 00:00: mouth [place] ing tablet 00 every 8 Medica l (eight) Branch hours as needed for Nausea and Vomiting (N/V). ondansetron 2021-0 Yes [id number] 4mg Take 1 Univers 4 mg 4-11 tablet by ity of disintegrat 00:00: mouth [place] ing tablet 00 every 8 Medica l (eight) Branch hours as needed for Nausea and Vomiting (N/V). ondansetron 2021-0 Yes [id number] 4mg Take 1 Univers 4 mg 4-11 tablet by ity of disintegrat 00:00: mouth [place] ing tablet 00 every 8 Medica l (eight) Branch hours as needed for Nausea and Vomiting (N/V). ondansetron 2021-0 Yes [id number] 4mg Take 1 Univers 4 mg 4-11 tablet by ity of disintegrat 00:00: mouth [place] ing tablet 00 every 8 Medica l (eight) Branch hours as needed for Nausea and Vomiting (N/V). ondansetron 2021-0 Yes [id number] 4mg Take 1 Univers 4 mg 4-11 tablet by ity of disintegrat 00:00: mouth [place] ing tablet 00 every 8 Medica l (eight) Branch hours as needed for Nausea and Vomiting (N/V). ondansetron 2021-0 Yes [id number] 4mg Take 1 Univers 4 mg 4-11 tablet by ity of disintegrat 00:00: mouth [place] ing tablet 00 every 8 Medica l (eight) Branch hours as needed for Nausea and Vomiting (N/V). ondansetron 2021-0 Yes [id number] 4mg Take 1 Univers 4 mg 4-11 tablet by ity of disintegrat 00:00: mouth [place] ing tablet 00 every 8 Medica l (eight) Branch hours as needed for Nausea and Vomiting (N/V). norethindro 2021-0 Yes [id number] 1{tbl} Take 1 Univers ne 0.35 mg 3-30 tablet by ity of tablet 00:00: mouth [place] 00 daily. Medical Branch norethindro 2021-0 Yes [id number] 1{tbl} Take 1 Univers ne 0.35 mg 3-30 tablet by ity of tablet 00:00: mouth [place] 00 daily. Medical Branch norethindro 2021-0 Yes [id number] 1{tbl} Take 1 Univers ne 0.35 mg 3-30 tablet by ity of tablet 00:00: mouth [place] 00 daily. Medical Branch norethindro Yes [id number] 1{tbl} Take 1 Univers ne 0.35 mg 3-30 tablet by ity of tablet 00:00: mouth [place] 00 daily. Medical Branch norethindro Yes [id number] 1{tbl} Take 1 Univers ne 0.35 mg 3-30 tablet by ity of tablet 00:00: mouth [place] 00 daily. Medical Branch norethindro Yes [id number] 1{tbl} Take 1 Univers ne 0.35 mg 3-30 tablet by ity of tablet 00:00: mouth [place] 00 daily. Medical Branch norethindro Yes [id number] 1{tbl} Take 1 Univers ne 0.35 mg 3-30 tablet by ity of tablet 00:00: mouth [place] 00 daily. Medical Branch norethindro Yes [id number] 1{tbl} Take 1 Univers ne 0.35 mg 3-30 tablet by ity of tablet 00:00: mouth [place] 00 daily. Medical Branch norethindro Yes [id number] 1{tbl} Take 1 Univers ne 0.35 mg 3-30 tablet by ity of tablet 00:00: mouth [place] 00 daily. Medical Branch norethindro Yes [id number] 1{tbl} Take 1 Univers ne 0.35 mg 3-30 tablet by ity of tablet 00:00: mouth [place] 00 daily. Medical Branch norethindro Yes [id number] 1{tbl} Take 1 Univers ne 0.35 mg 3-30 tablet by ity of tablet 00:00: mouth [place] 00 daily. Medical Branch norethindro Yes [id number] 1{tbl} Take 1 Univers ne 0.35 mg 3-30 tablet by ity of tablet 00:00: mouth [place] 00 daily. Medical Branch norethindro Yes [id number] 1{tbl} Take 1 Univers ne 0.35 mg 3-30 tablet by ity of tablet 00:00: mouth [place] 00 daily. Medical Branch norethindro Yes [id number] 1{tbl} Take 1 Univers ne 0.35 mg 3-30 tablet by ity of tablet 00:00: mouth [place] 00 [id number]} Take 1 Univers ne 0.35 mg 3-30 tablet by ity of tablet 00:00: mouth [place] 00 daily. [facility] [id number] 1{tbl} Take 1 Univers ne 0.35 mg 3-30 tablet by ity of tablet 00:00: mouth [place] 00 daily. [facility] Yes [id number] 1{tbl} Take 1 Univers ne 0.35 mg 3-30 tablet by ity of tablet 00:00: mouth [place] 00 [facility]. [facility] [id number] 1{tbl} Take 1 Univers ne 0.35 mg 3-30 tablet by ity of tablet 00:00: mouth [place] 00 [facility]. [facility] [id number] 1{tbl} Take 1 Univers ne 0.35 mg 3-30 tablet by ity of tablet 00:00: mouth [place] 00 daily. [facility] [id number] 1{tbl} Take 1 Univers ne 0.35 mg 3-30 tablet by ity of tablet 00:00: mouth [place] 00 daily. [facility] [id number] 1{tbl} Take 1 Univers ne 0.35 mg 3-30 tablet by ity of tablet 00:00: mouth [place] 00 daily. [facility] Immunizations Ordered Filled Immunization Date Status Comments [facility] Immunization Name Name HPV9 2021-05-17 Completed University of 00:00:00 [facility] HPV9 2021-05-17 Completed University of 00:00:00 [facility] HPV9 2021-05-17 Completed University of 00:00:00 [facility] HPV9 2021-05-17 Completed University of 00:00:00 [facility] HPV9 2021-05-17 Completed University of 00:00:00 [facility] HPV9 2021-05-17 Completed University of 00:00:00 [facility] HPV9 2021-05-17 Completed University of 00:00:00 [facility] 2021-05-17 Completed University of 00:00:00 [facility] HPV9 2021-05-17 Completed University of 00:00:00 [place] [facility] HPV9 2021-05-17 Completed University of 00:00:00 [place] [facility] HPV9 2021-05-17 Completed University of 00:00:00 [place] [facility] HPV9 2021-05-17 Completed University of 00:00:00 [place] [facility] HPV9 2021-05-17 Completed University of 00:00:00 [place] [facility] HPV9 2021-05-17 Completed University of 00:00:00 [place] [facility] HPV9 2021-05-17 Completed University of 00:00:00 [place] [facility] HPV9 2021-05-17 Completed University of 00:00:00 [place] [facility] HPV9 2021-05-17 Completed University of 00:00:00 [place] [facility] HPV9 2021-05-17 Completed University of 00:00:00 [facility] Branch HPV9 2021-05-17 Completed University of 00:00:00 [facility] Branch HPV9 2021-05-17 Completed University of 00:00:00 [facility] Branch HPV9 2021-05-17 Completed University of 00:00:00 [facility] Branch TDAP 2021-02-22 Completed University of 00:00:00 [facility] Branch TDAP 2021-02-22 Completed University of 00:00:00 [facility] Branch TDAP 2021-02-22 Completed University of 00:00:00 [facility] Branch TDAP 2021-02-22 Completed University of 00:00:00 [facility] Branch TDAP 2021-02-22 Completed University of 00:00:00 [place] [facility] TDAP 2021-02-22 Completed University of 00:00:00 [place] [facility] TDAP 2021-02-22 Completed University of 00:00:00 [facility] Branch TDAP 2021-02-22 Completed University of 00:00:00 [place] [facility] TDAP 2021-02-22 Completed University of 00:00:00 [place] [facility] TDAP 2021-02-22 Completed University of 00:00:00 [place] [facility] TDAP 2021-02-22 Completed University of 00:00:00 [place] [facility] TDAP 2021-02-22 Completed University of 00:00:00 [facility] Branch TDAP 2021-02-22 Completed University of 00:00:00 [facility] TDAP 2021-02-22 Completed University of 00:00:00 [facility] TDAP 2021-02-22 Completed University of 00:00:00 [place] [facility] TDAP 2021-02-22 Completed University of 00:00:00 [place] [facility] TDAP 2021-02-22 Completed University of 00:00:00 [facility] TDAP 2021-02-22 Completed University of 00:00:00 [facility] TDAP 2021-02-22 Completed University of 00:00:00 [facility] TDAP 2021-02-22 Completed University of 00:00:00 [facility] TDAP 2021-02-22 Completed University of 00:00:00 [facility] SARS-COV-2 COVID-19 2020-07-26 Completed Unive rsity of MAURICIO/J&J VACCINE 00:00:00 [facility] SARS-COV-2 COVID-19 2020-07-26 Completed Unive rsity of MAURICIO/J&J VACCINE 00:00:00 [facility] SARS-COV-2 COVID-19 2020-07-26 Completed Unive rsity of MAURICIO/J&J VACCINE 00:00:00 [facility] SARS-COV-2 COVID-19 2020-07-26 Completed Unive rsity of MAURICIO/J&J VACCINE 00:00:00 [facility] SARS-COV-2 COVID-19 2020-07-26 Completed Unive rsity of MAURICIO/J&J VACCINE 00:00:00 [facility] SARS-COV-2 COVID-19 2020-07-26 Completed Unive rsity of MAURICIO/J&J VACCINE 00:00:00 [facility] SARS-COV-2 COVID-19 2020-07-26 Completed Unive rsity of MAURICIO/J&J VACCINE 00:00:00 [facility] SARS-COV-2 COVID-19 2020-07-26 Completed Unive rsity of MAURICIO/J&J VACCINE 00:00:00 [facility] SARS-COV-2 COVID-19 2020-07-26 Completed Unive rsity of MAURICIO/J&J VACCINE 00:00:00 [facility] SARS-COV-2 COVID-19 2020-07-26 Completed Unive rsity of MAURICIO/J&J VACCINE 00:00:00 [facility] SARS-COV-2 COVID-19 2020-07-26 Completed Unive rsity of MAURICIO/J&J VACCINE 00:00:00 [facility] SARS-COV-2 COVID-19 2020-07-26 Completed Unive rsity of MAURICIO/J&J VACCINE 00:00:00 [facility] SARS-COV-2 COVID-19 2020-07-26 Completed Unive rsity of MAURICIO/J&J VACCINE 00:00:00 [facility] SARS-COV-2 COVID-19 2020-07-26 Completed Unive rsity of MAURICIO/J&J VACCINE 00:00:00 [facility] SARS-COV-2 COVID-19 2020-07-26 Completed Unive rsity of MAURICIO/J&J VACCINE 00:00:00 [facility] SARS-COV-2 COVID-19 2020-07-26 Completed Unive rsity of MAURICIO/J&J VACCINE 00:00:00 [facility] SARS-COV-2 COVID-19 2020-07-26 Completed Unive rsity of MAURICIO/J&J VACCINE 00:00:00 [facility] SARS-COV-2 COVID-19 2020-07-26 Completed Unive rsity of MAURICIO/J&J VACCINE 00:00:00 [facility] SARS-COV-2 COVID-19 2020-07-26 Completed Unive rsity of MAURICIO/J&J VACCINE 00:00:00 [facility] SARS-COV-2 COVID-19 2020-07-26 Completed Unive rsity of MAURICIO/J&J VACCINE 00:00:00 [facility] SARS-COV-2 COVID-19 2020-07-26 Completed Unive rsity of MAURICIO/J&J VACCINE 00:00:00 [facility] HPV 2013-11-11 Completed University of 00:00:00 [facility] HPV 2013-11-11 Completed University of 00:00:00 [facility] HPV 2013-11-11 Completed University of 00:00:00 [facility] HPV 2013-11-11 Completed University of 00:00:00 [facility] HPV 2013-11-11 Completed University of 00:00:00 [facility] HPV 2013-11-11 Completed University of 00:00:00 [facility] HPV 2013-11-11 Completed University of 00:00:00 [facility] HPV 2013-11-11 Completed University of 00:00:00 [facility] HPV 2013-11-11 Completed University of 00:00:00 [facility] HPV 2013-11-11 Completed University of 00:00:00 [facility] HPV 2013-11-11 Completed University of 00:00:00 [facility] HPV 2013-11-11 Completed University of 00:00:00 [facility] HPV 2013-11-11 Completed University of 00:00:00 [facility] HPV 2013-11-11 Completed University of 00:00:00 [facility] HPV 2013-11-11 Completed University of 00:00:00 [facility] HPV 2013-11-11 Completed University of 00:00:00 [facility] HPV 2013-11-11 Completed University of 00:00:00 [facility] HPV 2013-11-11 Completed University of 00:00:00 [facility] HPV 2013-11-11 Completed University of 00:00:00 [facility] HPV 2013-11-11 Completed University of 00:00:00 [facility] HPV 2013-11-11 Completed University of 00:00:00 [facility] HPV 2013-09-11 Completed University of 00:00:00 [facility] HPV 2013-09-11 Completed University of 00:00:00 [facility] HPV 2013-09-11 Completed University of 00:00:00 [facility] HPV 2013-09-11 Completed University of 00:00:00 [facility] HPV 2013-09-11 Completed University of 00:00:00 [facility] HPV 2013-09-11 Completed University of 00:00:00 [facility] HPV 2013-09-11 Completed University of 00:00:00 [facility] HPV 2013-09-11 Completed University of 00:00:00 [facility] HPV 2013-09-11 Completed University of 00:00:00 [facility] HPV 2013-09-11 Completed University of 00:00:00 [facility] HPV 2013-09-11 Completed University of 00:00:00 [facility] HPV 2013-09-11 Completed University of 00:00:00 [facility] HPV 2013-09-11 Completed University of 00:00:00 [facility] HPV 2013-09-11 Completed University of 00:00:00 [facility] HPV 2013-09-11 Completed University of 00:00:00 [facility] HPV 2013-09-11 Completed University of 00:00:00 [facility] HPV 2013-09-11 Completed University of 00:00:00 [facility] HPV 2013-09-11 Completed University of 00:00:00 [facility] HPV 2013-09-11 Completed University of 00:00:00 [facility] HPV 2013-09-11 Completed University of 00:00:00 [facility] HPV 2013-09-11 Completed University of 00:00:00 [facility] HPV 2013-05-10 Completed University of 00:00:00 [facility] HPV 2013-05-10 Completed University of 00:00:00 [facility] HPV 2013-05-10 Completed University of 00:00:00 [facility] HPV 2013-05-10 Completed University of 00:00:00 [facility] HPV 2013-05-10 Completed University of 00:00:00 [facility] HPV 2013-05-10 Completed University of 00:00:00 [facility] HPV 2013-05-10 Completed University of 00:00:00 [facility] HPV 2013-05-10 Completed University of 00:00:00 [facility] HPV 2013-05-10 Completed University of 00:00:00 [facility] HPV 2013-05-10 Completed University of 00:00:00 [facility] HPV 2013-05-10 Completed University of 00:00:00 [facility] HPV 2013-05-10 Completed University of 00:00:00 [facility] HPV 2013-05-10 Completed University of 00:00:00 [facility] HPV 2013-05-10 Completed University of 00:00:00 [facility] HPV 2013-05-10 Completed University of 00:00:00 [facility] HPV 2013-05-10 Completed University of 00:00:00 [facility] HPV 2013-05-10 Completed University of 00:00:00 [facility] HPV 2013-05-10 Completed University of 00:00:00 [facility] HPV 2013-05-10 Completed University of 00:00:00 [facility] HPV 2013-05-10 Completed University of 00:00:00 [facility] HPV 2013-05-10 Completed University of 00:00:00 [facility] Td 2010-10-28 Completed University of 00:00:00 [facility] Td 2010-10-28 Completed University of 00:00:00 [facility] Td 2010-10-28 Completed University of 00:00:00 [facility] Td 2010-10-28 Completed University of 00:00:00 [facility] Td 2010-10-28 Completed University of 00:00:00 [facility] Td 2010-10-28 Completed University of 00:00:00 [facility] Td 2010-10-28 Completed University of 00:00:00 [facility] Td 2010-10-28 Completed University of 00:00:00 [facility] Td 2010-10-28 Completed University of 00:00:00 [facility] Td 2010-10-28 Completed University of 00:00:00 [facility] Td 2010-10-28 Completed University of 00:00:00 [facility] Td 2010-10-28 Completed University of 00:00:00 [facility] TD, NOS 2010-10-28 Completed University of 00:00:00 [facility] TD, NOS 2010-10-28 Completed University of 00:00:00 [facility] TD, NOS 2010-10-28 Completed University of 00:00:00 [facility] TD, NOS 2010-10-28 Completed University of 00:00:00 [facility] TD, NOS 2010-10-28 Completed University of 00:00:00 [facility] TD, NOS 2010-10-28 Completed University of 00:00:00 [facility] TD, NOS 2010-10-28 Completed University of 00:00:00 [facility] TD, NOS 2010-10-28 Completed University of 00:00:00 [facility] TD, NOS 2010-10-28 Completed University of 00:00:00 [facility] Vital Signs Vital Name Observation Time Observation Value Comments Source Systolic blood 2022-04-30 133 mm[Hg] University of pressure 16:31:00 [facility] Diastolic blood 2022-04-30 84 mm[Hg] University o f pressure 16:31:00 [facility] Heart rate 2022-04-30 76 /min University of 16:31:00 [facility] Body temperature 2022-04-30 35.83 Emmanuelle University of 16:31:00 [facility] Respiratory rate 2022-04-30 18 /min University of 16:31:00 [facility] Body height 2022-04-30 162.6 cm University of 16:31:00 [facility] Body weight 2022-04-30 131.815 kg University of 16:31:00 [facility] BMI 2022-04-30 49.88 kg/m2 University of 16:31:00 [facility] Systolic blood 2022-04-19 119 mm[Hg] University of pressure 15:39:00 [facility] Diastolic blood 2022-04-19 76 mm[Hg] University o f pressure 15:39:00 [facility] Heart rate 2022-04-19 81 /min University of 15:39:00 [facility] Body temperature 2022-04-19 36.61 Emmanuelle University of 15:39:00 [facility] Respiratory rate 2022-04-19 18 /min University of 15:39:00 [facility] Body height 2022-04-19 162.6 cm University of 15:39:00 [facility] Body weight 2022-04-19 131.044 kg University of 15:39:00 [facility] BMI 2022-04-19 49.59 kg/m2 University of 15:39:00 [facility] Systolic blood 2022-03-03 125 mm[Hg] University of pressure 15:17:00 [facility] Diastolic blood 2022-03-03 87 mm[Hg] University o f pressure 15:17:00 [facility] Heart rate 2022-03-03 74 /min University of 15:17:00 [facility] Body temperature 2022-03-03 36.83 Emmanuelle University of 15:17:00 [facility] Respiratory rate 2022-03-03 18 /min University of 15:17:00 [facility] Body height 2022-03-03 162.6 cm University of 15:17:00 [facility] Body weight 2022-03-03 113.399 kg University of 15:17:00 [facility] BMI 2022-03-03 42.91 kg/m2 University of 15:17:00 [facility] Oxygen saturation 2022-03-03 99 /min [facility] in Arterial blood 15:17:00 [facility] by Pulse oximetry [place] Systolic blood 2022-02-14 138 mm[Hg] University of pressure 20:28:00 [facility] Diastolic blood 2022-02-14 85 mm[Hg] University o f pressure 20:28:00 [facility] Heart rate 2022-02-14 66 /min University of 20:28:00 [facility] Body temperature 2022-02-14 36.33 Emmanuelle University of 20:28:00 [facility] Respiratory rate 2022-02-14 20 /min University of 20:28:00 [facility] Body height 2022-02-14 162.6 cm University of 20:28:00 [facility] Body weight 2022-02-14 124.059 kg University of 20:28:00 [facility] BMI 2022-02-14 46.95 kg/m2 University of 20:28:00 [facility] Systolic blood 2022-01-24 144 mm[Hg] Had to try 3x University o f pressure 22:13:00 before getting [facility] reading [facility] Diastolic blood 2022-01-24 98 mm[Hg] Had to try 3x University of pressure 22:13:00 before getting [facility] reading [facility] Heart rate 2022-01-24 97 /min University of 22:13:00 [facility] Body temperature 2022-01-24 36.89 Emmanuelle University of 22:13:00 [facility] Respiratory rate 2022-01-24 18 /min University of 22:13:00 [facility] Body height 2022-01-24 162.6 cm University of 22:13:00 [facility] Body weight 2022-01-24 125.919 kg University of 22:13:00 [facility] BMI 2022-01-24 47.65 kg/m2 University of 22:13:00 [facility] Oxygen saturation 2022-01-24 98 /min [facility] in Arterial blood 22:13:00 [facility] by Pulse oximetry Branch Systolic blood 2021-12-06 124 mm[Hg] University of pressure 13:30:00 [facility] Diastolic blood 2021-12-06 54 mm[Hg] University o f pressure 13:30:00 [facility] Heart rate 2021-12-06 72 /min University of 13:30:00 [facility] Body temperature 2021-12-06 36.28 Emmanuelle University of 13:30:00 [facility] Respiratory rate 2021-12-06 18 /min University of 13:30:00 [facility] Body height 2021-12-06 165.1 cm University of 13:30:00 [facility] Body weight 2021-12-06 130.296 kg University of 13:30:00 [facility] BMI 2021-12-06 47.80 kg/m2 University of 13:30:00 [facility] Procedures Procedure Date / Time Performing Clinician Source Performed POCT TEST 2022-04-30 16:35:00 Estevan Adams [facility] DISCLOSURE AND CONSENT, 2022-04-30 06:01:00 Doctor Unassigned, N o [facility] MEDICAL AND SURGICAL [facility] PROCEDURES POCT TEST 2022-04-19 15:41:00 Estevan Adams Uni ursula [facility] BASIC METABOLIC PANEL 2022-03-03 15:57:00 [facility] (NA, K, CL, CO2, Medical Branch GLUCOSE, BUN, CREATININE, CA) ETHANOL 2022-03-03 15:57:00 Tiana Antonio [facility] CBC WITH DIFF 2022-03-03 15:57:00 Tiana Antonio [facility] URINALYSIS 2022-03-03 15:57:00 Tiana Antonio [facility] URINE DRUG (IMMUNOASSAY) 2022-03-03 15:57:00 [facility] ECG ROUTINE & RHYTHM 2022-03-03 15:55:48 Tiana Antonio [facility] POCT TEST 2022-02-14 20:48:00 Estevan Adams [facility] ASSIGNMENT OF BENEFITS 2022-02-14 19:38:06 Doctor Unassigned, No [facility] POCT URINALYSIS 2022-01-24 22:31:00 Jessika Manrique o f [facility] POCT TEST 2021-12-06 15:36:00 [facility] Start End Encounter Admission Attending Care Care Encounter Source Date/Time Date/Time Type Type Clinicians Facility Department ID 2021-01-22 Emergency [facility] [id number] [facility]-07-04 2022-07-04 Outpatient Divya ANDERSON [facility] [id number] Univers 13:15:00 13:15:00 SIRIA [facility] o f [facility] 2022-07-04 2022-07-04 Outpatient Divya ANDERSON [facility] [id number] Univers 13:15:00 13:15:00 SIRIA moe [facility] 2022-07-04 2022-07-04 Outpatient Divya ANDERSON [facility] [id number] Univers 13:00:00 13:00:00 SIRIA moe [facility] 2022-04-30 2022-04-30 [facility] [id number] Univers 10:00:00 10:30:00 Visit Estevan Orestes [employer] [id number] [facility] [id number] Jose Juan as MATERNAL [id number] [facility] ical & CHILD [address] [place] [address] 2022-04-30 2022-04-30 [facility] [id number] Univers 10:00:00 10:00:00 ESTEVAN strong [facility] 2022-04-30 2022-04-30 Orders Doctor MAN [id number] Univers 00:00:00 00:00:00 Only Unassigned, ERASTO [id number] ity of [place] [facility] [id number] Jose Juan as [id number] [address] 2022-04-19 2022-04-19 Out[facility] [id number] Univers 09:30:00 10:05:06 ESTEVAN strong [facility] 2022-04-19 2022-04-19 [facility] [id number] Univers 09:30:00 10:05:06 Visit Estevan Calrisle [employer] [id number] [facility] [id number] Jose Juan as MATERNAL [id number] [facility] & [address] 2022-04-19 2022-04-19 Letter [facility] [id number] Univers 00:00:00 00:00:00 (Out) Estevan C [employer] [id number] ity of [facility] [id number] Jose Juan as MATERNAL [id number] [facility] [address] [place] [address] 2022-03-07 2022-03-07 Outpatient Divya ANDERSON [facility] [id number] Univers 09:45:00 09:45:00 ANETTEKing dre o f [facility] 2022-03-03 2022-03-03 Emergency X PACO, [facility] ERT [id number] Univers 09:22:00 12:44:00 TIANA dre [facility] 2022-03-03 2022-03-03 Emergency Paco, [facility] [id number] Univers 09:22:00 12:44:00 Tiana PADILLA [address]13[address] [facility] [id number] [place] [facility] [id number] [address] 2022-02-18 2022-02-18 Saul [facility] [id number] Univers 00:00:00 00:00:00 Estevan C [employer] [id number] ity of [facility] [id number] Jose Juan as MATERNAL [id number] [facility] & CHILD [address] [place] [address] 2022-02-14 2022-02-14 Nurse Visit, Ang-Rmchp Nurse [facility] 1.2 .[id number] Univers 13:30:00 14:35:37 Visit Jennifer Ansari [employer] 350.1.13.1 0 ity of [facility] [id number] Jose Juan as MATERNAL [id number] [facility] [address] [place] [address] 2022-02-14 2022-02-14 Outpatient Divya ANSARI [facility] [id number] Univers 14:30:00 14:30:00 JENNIFER [facility] 2022-02-14 2022-02-14 Outpatient Divya ANSARI [facility] [id number] Univers 13:30:00 13:30:00 JENNIFER [facility] 2022-02-14 2022-02-14 Orders Doctor MAGDA [id number] Univers 00:00:00 00:00:00 Only Unassigned, ERASTO 350.1.13.10 ity of [place] [facility] [id number] Jose Juan as [id number] [address] 2022-02-14 2022-02-14 Telephone Justin [facility] [id number] Univers 00:00:00 00:00:00 Siria Stokes [employer] [id number] ity of [facility] [id number] Jose Juan as MATERNAL [id number] [facility] & CHILD [address] [place] [address] 2022-02-06 2022-02-06 Telephone Bryan [facility] 1.2.840.114 [id number] Univers 00:00:00 00:00:00 Estevna Carlisle [employer] 350.1.13.10 ity of [facility] [id number] Jose Juan as MATERNAL [id number] [facility] & CHILD [address] [place] [address] 2022-01-24 2022-01-24 Outpatient R BURTON [facility] [id number] Univers 17:20:00 17:28:54 [facility] 2022-01-24 2022-01-24 Urgent Jessika Manrique [facility] [id number] Univers 17:20:00 17:28:54 Care Unknown, Attending HEALTH 350.1.13.10 ity [facility] 4.2.7.2.686 Jose Juan as LUCAS?BLEA [id number] [address] MEDICAL OFFICE BUILDING 2022-01-01 2022-01-01 [facility]ill [facility] [id number] Univers 00:00:00 00:00:00 Estevan Carlisle [employer] 350.1.13.10 ity of [facility] [id number] Jose Juan as MATERNAL [id number] [facility] & CHILD [address] [place] [address] 2022-01-01 2022-01-01 Telephone Bryan [facility] 1.2.840.114 [id number] Univers 00:00:00 00:00:00 Estevan C [employer] 350.1.13.10 ity of [facility] 4.2.7.2.686 Jose Juan as MATERNAL [id number] [facility] [address] [place] [address] 2021-12-29 2021-12-29 [facility] [id number] Univers 00:00:00 00:00:00 Estevan C [employer] 350.1.13.10 ity of [facility] 4.2.7.2.686 Jose Juan as MATERNAL [id number] [facility] & CHILD [address] [place] [address] 2021-12-06 2021-12-06 Office [facility] [id number] Univers 08:15:00 08:54:24 Visit Estevan C [employer] 350.1.13.10 ity of [facility] [id number] Jose Juan as MATERNAL [id number] [facility] & CHILD [address] [place] [address] 2021-12-06 2021-12-06 Outpatient R AKINSIPE, [facility] [id number] Univers 08:15:00 08:54:24 ESTEVAN ity o [facility] 2021-12-06 2021-12-06 Outpatient R AKINSIPE, [facility] [id number] Univers 08:15:00 08:15:00 ESTEVAN ity o f [facility] 2021-11-22 2021-11-22 Outpatient R AKINSIPE, [facility] [id number] Univers 15:15:00 15:15:00 ESTEVAN ity o f [facility] 2021-11-21 2021-11-21 Telephone [facility] [id number] Univers 00:00:00 00:00:00 Anettea R [employer] 350.1.13.10 ity of [facility] 4.2.7.2.686 Jose Juan as MATERNAL [id number] [facility] & CHILD [address] [place] [address] 2021-11-20 2021-11-20 Telephone [facility] [id number] Univers 00:00:00 00:00:00 Ludastephanie R [employer] 350.1.13.10 ity of [facility] [id number] Jose Juan as MATERNAL [id number] [facility] [address] [place] [address] 2021-09-03 2021-09-03 [facility]ill [facility] 1.2.840.114 [id number] Univers 00:00:00 00:00:00 Siria R [employer] 350.1.13.10 ity of [facility] [id number] Jose Juan as MATERNAL [id number] [facility] & CHILD [address] [place] [address] 2021-07-04 2021-07-04 Office [facility] 1.2.840.114 [id number] Univers 12:45:00 13:31:36 Visit Ludastephanie R [employer] 350.1.13.10 ity of [facility] [id number] Jose Juan as MATERNAL [id number] [facility] & CHILD [address] [place] [address] 2021-07-04 2021-07-04 Out[facility] [id number] Univers 12:45:00 13:31:36 [facility] odonnelly o [facility] 2021-07-04 2021-07-04 Outpatient Divya ANDERSON [facility] [id number] Univers 12:45:00 12:45:00 [facility] odonnelly o [facility] 2021-07-04 2021-07-04 Telephone [facility] [place] [id number] Univers 00:00:00 00:00:00 Maisha MAURER 350.1.13.10 it y of [facility] [id number] Jose Juan as [id number] [address] 2021-07-03 2021-07-03 Outpatient Divya MANRIQUE [facility] [id number] Univers 18:20:00 18:53:48 JESSIKA ity [facility] 2021-07-03 2021-07-03 Urgent Burton [facility] 1.2.840.114 [id number] Univers 18:20:00 18:53:48 Care Jessika HEALTH [id number] it y of [place] [id number] Jose Juan as LUCAS?BLEA [id number] Nv leandra [address] MEDICAL OFFICE BUILDING 2021-07-03 2021-07-03 Outpatient Divya MANRIQUE [facility] [id number] Univers 18:20:00 18:53:48 [facility] 2021-07-03 2021-07-03 Outpatient YING RIOJAS [id number] Ying 09:30:00 09:30:00 EASTON Seybol angela 2021-07-03 2021-07-03 Outpatient YING RIOJAS [id number] Ying 08:15:00 08:15:00 EASTON Mckeonol angela 2021-06-21 2021-06-21 [facility] [id number] Univers 13:00:00 14:53:50 ROSHUNDA ity o [facility] 2021-06-21 2021-06-21 Office [facility] 1.2.840.114 [id number] Univers 13:00:00 14:53:50 Visit Rosnda R [employer] 350.1.13.10 ity of [facility] [id number] Jose Juan as MATERNAL [id number] [facility] & CHILD [address] [place] [address] 2021-06-21 2021-06-21 [facility] [id number] Univers 13:00:00 14:53:50 ROSHUNDA ity o [facility] 2021-05-31 2021-05-31 Outpatient [facility] [id number] Univers 08:00:00 09:04:36 ROSHUNDA ity o f [facility] 2021-05-31 2021-05-31 [facility] 1.2.840.114 [id number] Univers 08:00:00 09:04:36 Roshunda R PACKAGER HEAD 350.1.13.10 ity of Visit REGIONAL 4.2.7.2.686 Jose Juan as MATERNAL [id number] [facility] ical & CHILD [address] [place] [address] 2021-05-19 2021-05-19 Telephone [facility] 1.2.840.114 [id number] Univers 00:00:00 00:00:00 Estevan Carlisle PACKAGER HEAD 350.1.13.10 ity [place] [id number] Jose Juan as MATERNAL [phone] [facility] ical & CHILD [address] [place] [address] 2021-05-17 2021-05-17 Nurse Nurse, Naun Lima Exp Cprit Obgyn [facility] 1.2.840.114 [id number] Univers 13:00:00 13:00:00 Visit Siria Anderson PACKAGER HEAD 350.1.13.10 [place] [address].7.2.686 Jose Juan as MATERNAL [id number] [facility] ical & CHILD [address] [place] [address] 2021-05-17 2021-05-17 [facility] [id number] Univers 13:00:00 08:46:02 SIRIA moe [facility] 2021-05-17 2021-05-17 Nurse Visit, Oly Nurse [facility] 1.2 .840.114 [id number] Univers 08:00:00 08:45:55 Visit Siria Anderson PACKAGER HEAD 350.1.13.10 [place] [address].7.2.686 Jose Juan as MATERNAL [id number] [facility] & CHILD [address] [place] [address] 2021-05-09 2021-05-12 Inpatient P THA GAGIL REZA [id number] Univers 17:42:00 16:52:00 JODEE erickson [facility] 2021-05-09 2021-05-12 Hospital MAGDA Malik 1.2.840.114 [id number] Univers 17:42:00 16:52:00 Encounter Jodee MAURER 350.1.13.10 ity [place] [address].7.2.686 Jose Juan as [id number] [address] 2021-05-10 2021-05-10 Surgery MAGDA Fernandez 1.2.840.114 [id number] Univers 17:00:00 18:47:00 Zbigniew MULLINSY 350.1.13.10 i ty of HOSPITAL 4.2.7.2.686 Jose Juan as [id number] [address] 2021-05-10 2021-05-10 Anesthesia Glen Mcgraw 1.2.840.1 14 [id number] Univers 09:54:00 18:34:00 Event Leonel Mason 350.1.13.10 ity of HOSPITAL 4.2.7.2.686 Jose Juan as [id number] [address] 2021-05-09 2021-05-09 [facility] [id number] Univers 13:15:00 14:00:22 ROSHUNDA ity o f [facility] 2021-05-09 2021-05-09 Routine [facility] 1.2.840.114 [id number] Univers 13:15:00 14:00:22 Roshunda R PACKAGER HEAD 350.1.13.10 ity of Visit REGIONAL 4.2.7.2.686 Jose Juan as MATERNAL [id number] [facility] & CHILD [address] [place] [address] 2021-05-02 2021-05-02 Out[facility] [id number] Univers 15:30:00 15:58:07 ROSHUNDA ity o f [facility] 2021-05-02 2021-05-02 Routine [facility] 1.2.840.114 [id number] Univers 15:30:00 15:58:07 Roshunda R PACKAGER HEAD 350.1.13.10 ity of Visit REGIONAL 4.2.7.2.686 Jose Juan as MATERNAL [id number] [facility] [address] [place] [address] 2021-05-02 2021-05-02 Abstract [facility] 1.2.840.114 [id number] Univers 00:00:00 00:00:00 Roshunda R PACKAGER HEAD 350.1.13.10 ity of REGIONAL 4.2.7.2.686 Jose Juan as MATERNAL [id number] [facility] ical & CHILD [address] [place] [address] 2021-04-28 2021-04-28 Transit Planning Manager Ultrasound, [facility] 1.2 .840.114 [id number] Univers 09:30:00 10:00:00 Visit Katelyn Murillo PACKAGER HEAD 350.1.13.10 ity of REGIONAL 4.2.7.2.686 Jose Juan as MATERNAL [id number] [facility] & CHILD [address] [place] [address] 2021-04-28 2021-04-28 Outpatient P [facility] [id number] Univers 09:30:00 09:30:00 ity [facility] 2021-04-28 2021-04-28 Outpatient P [facility] [id number] Univers 09:30:00 09:30:00 ity [facility] 2021-04-28 2021-04-28 Outpatient P KATELYN MURILLO [facility] [id number] Univers 09:30:00 09:30:00 KATELYN MURILLO [facility] 2021-04-25 2021-04-25 Outpatient R JUSTIN [facility] [id number] Univers 15:30:00 16:19:38 ROSHUNDA ity o f [facility] 2021-04-25 2021-04-25 Routine [facility] 1.2.840.114 [id number] Univers 15:30:00 16:19:38 Roshunda R PACKAGER HEAD 350.1.13.10 ity of Visit REGIONAL 4.2.7.2.686 Jose Juan as MATERNAL [id number] [facility] & [address] 2021-04-25 2021-04-25 Out[facility] [id number] Univers 15:30:00 15:30:00 ROSHUNDA ity o f [facility] 2021-04-24 2021-04-24 Outpatient P [facility] [id number] Univers 15:30:00 15:30:00 ity [facility] 2021-04-21 2021-04-21 Telephone [facility] 1.2.643.903 [id number] Univers 00:00:00 00:00:00 Roshunda R PACKAGER HEAD 350.1.13.10 ity of REGIONAL 4.2.7.2.686 Jose Juan as MATERNAL [id number] [facility] ical & CHILD [address] [place] [address] 2021-04-19 2021-04-19 Outpatient R JUSTIN [facility] [id number] Univers 13:15:00 13:15:00 ROSHUNDA ity o f [facility] 2021-04-19 2021-04-19 Transit Planning Manager Lab, Ang-Rmchp [facility] 1.2.840. 114 [id number] Univers 13:15:00 13:15:00 Visit AndersonSiria R PACKAGER HEAD 350.1.13.10 ity of REGIONAL 4.2.7.2.686 Jose Juan as MATERNAL [id number] [facility] & CHILD [address] [place] [address] 2021-04-19 2021-04-19 Outpatient P [facility] [id number] Univers 13:00:00 13:00:00 ity of [facility] 2021-04-19 2021-04-19 Telephone Justin [facility] 1.2.303.455 [id number] Univers 00:00:00 00:00:00 Roshunda R PACKAGER HEAD 350.1.13.10 ity of REGIONAL 4.2.7.2.686 Jose Juan as MATERNAL [id number] [facility] & CHILD [address] [place] [address] 2021-04-18 2021-04-18 Outpatient Divya ANDERSON [facility] [id number] Univers 15:30:00 16:11:31 ROSHUNDA ity o [facility] 2021-04-18 2021-04-18 Routine [facility] 1.2.840.114 [id number] Univers 15:30:00 16:11:31 Roshunda R PACKAGER HEAD 350.1.13.10 ity of Visit REGIONAL 4.2.7.2.686 Jose Juan as MATERNAL [id number] [facility] & [address] 2021-04-18 2021-04-18 Outpatient R JUSTIN [facility] [id number] Univers 15:30:00 16:11:31 ROSHUNDA ity o f [facility] 2021-04-18 2021-04-18 Outpatient R JUSTIN [facility] [id number] Univers 15:30:00 15:30:00 SIRIA moe [facility] 2021-04-11 2021-04-11 Outpatient Divya RAMESHRita [facility] [id number] Univers 13:00:00 14:15:13 SIRIA erickson o payal [facility] 2021-04-11 2021-04-11 Outpatient Divya ANDERSON [facility] [id number] Univers 13:00:00 14:15:13 SIRIA moe [facility] 2021-04-11 2021-04-11 Routine [facility] 1.2.840.114 [id number] Univers 13:00:00 14:15:13 Siria Divya [place] 350.1.13.10 ity of Visit REGIONAL 4.2.7.2.686 Jose Juan as MATERNAL [id number] Med ical & CHILD [address] [place] [address] 2021-04-11 2021-04-11 Outpatient Divya ANDERSON [facility] [id number] Univers 13:00:00 13:00:00 SIRIA moe [facility] 2021-03-29 2021-03-29 Telephone [facility] 1.2.892.707 [id number] Univers 00:00:00 00:00:00 Siria Divya [place] 350.1.13.10 ity of REGIONAL 4.2.7.2.686 Jose Juan as MATERNAL [id number] Med ical & CHILD [address] [place] [address] 2021-03-22 2021-03-22 Outpatient Divya ANDERSON [facility] [id number] Univers 14:30:00 14:51:40 SIRIA moe [facility] 2021-03-22 2021-03-22 Routine Siria Anderson R [facility] 1.2.840 .114 [id number] Univers 14:30:00 14:51:40 Jodee Malik F PACKAGER HEAD 350.1.13.10 ity of Visit REGIONAL 4.2.7.2.686 Jose Juan as MATERNAL [id number] [facility] ical & CHILD [address] [place] [address] 2021-03-22 2021-03-22 Outpatient R JUSTIN GAGIL [facility] [id number] Univers 14:30:00 14:30:00 ROSNESSANDA ity o f [facility] 2021-03-22 2021-03-22 Transit Planning Manager Ultrasound, Patricio [facility] 1.2 .840.114 [id number] Univers 14:00:00 14:30:00 Visit Siria Anderson R PACKAGER HEAD 350.1.13.10 ity of Jodee Malik F REGIONAL 4.2.7.2.686 [place] MATERNAL [id number] Med ical & CHILD 369 [facility] 2021-03-22 2021-03-22 Abstract Justin [facility] 1.2.840.114 [id number] Univers 00:00:00 00:00:00 Siria R [place]ACKAGER [place] 350.1.13.10 ity of REGIONAL 4.2.7.2.686 Jose Juan as MATERNAL [id number] Med ical & CHILD 107 [facility] 2021-03-14 2021-03-14 Telephone Justin [facility] 1.2.405.224 [id number] Univers 00:00:00 00:00:00 Siria R PACKAGER HEAD 350.1.13.10 ity of REGIONAL 4.2.7.2.686 Jose Juan as MATERNAL [id number] Med ical & CHILD [address] [place] [address] 2021-03-13 2021-03-13 Refelzbieta Alicea [facility] 1.2.581.379 [id number] Univers 00:00:00 00:00:00 Aaron Strong PACKAGER HEAD 350.1.13.10 ity of REGIONAL 4.2.7.2.686 Jose Juan as MATERNAL [id number] Med ical & CHILD 124 [facility] 2021-03-13 2021-03-13 Refill Justin [facility] 1.2.840.114 [id number] Univers 00:00:00 00:00:00 Blakenda R PACKAGER HEAD 350.1.13.10 ity of REGIONAL 4.2.7.2.686 Jose Juan as MATERNAL [id number] Med ical & CHILD [address] [place] [address] 2021-03-10 2021-03-10 Saul [facility] 1.2.840.114 [id number] Univers 00:00:00 00:00:00 Roshunda R PACKAGER HEAD 350.1.13.10 ity of REGIONAL 4.2.7.2.686 Jose Juan as MATERNAL [id number] Med ical & CHILD [address] [place] [address] 2021-03-10 2021-03-10 Saul [facility] 1.2.810.669 [id number] Univers 00:00:00 00:00:00 Mellerie O PACKAGER HEAD 350.1.13.10 ity of REGIONAL 4.2.7.2.686 Jose Juan as MATERNAL [id number] Med ical & CHILD [address] [place] [address] 2021-03-09 2021-03-09 Outpatient Divya ANDERSON [facility] [id number] Univers 15:45:00 16:18:23 ROSHUNDA ity o f [facility] 2021-03-09 2021-03-09 Phillip [facility] 1.2.840.114 [id number] Univers 15:45:00 16:18:23 Roshunda R PACKAGER HEAD 350.1.13.10 ity of Visit REGIONAL 4.2.7.2.686 Jose Juan as MATERNAL [id number] [facility] ical & CHILD [address] [place] [address] 2021-03-09 2021-03-09 Saul [facility] 1.2.403.364 [id number] Univers 00:00:00 00:00:00 Mellerie O PACKAGER HEAD 350.1.13.10 ity of REGIONAL 4.2.7.2.686 Jose Juan as MATERNAL [id number] Med ical & CHILD [address] [place] [address] 2021-03-09 2021-03-09 Saul [facility] 1.2.840.114 [id number] Univers 00:00:00 00:00:00 Roshunda R PACKAGER HEAD 350.1.13.10 ity of REGIONAL 4.2.7.2.686 Jose Juan as MATERNAL [id number] Med ical & CHILD [address] [place] [address] 2021-03-08 2021-03-08 Outpatient Divya ANDERSON [facility] [id number] Univers 15:45:00 15:45:00 SIRIA erickson ojseluis moe [facility] 2021-02-22 2021-02-22 Outpatient Divya OCHOADEANNE, [facility] [id number] Univers 10:00:00 11:57:26 RACHELLEDIANARita dre strong payal [facility] 2021-02-22 2021-02-22 Routine Provider, Oly [facility] 1 .2.840.114 [id number] Univers 09:59:09 11:57:26 Aaron Alicea P[place]AGER [place] 350.1.13 .10 ity of Visit REGIONAL 4.2.7.2.686 Jose Juan as MATERNAL [id number] Med ical & CHILD [address] [place] [address] 2021-02-13 2021-02-13 Transit Planning Manager Ultrasound, Patricio [facility] 1.2 .840.114 [id number] Univers 10:52:00 11:22:00 Visit Silvana Venegas PACKAGER HEAD 350.1.13.10 ity of REGIONAL 4.2.7.2.686 Jose Juan as MATERNAL [id number] Med ical & CHILD 369 [facility] 2021-02-13 2021-02-13 Outpatient P SILVANA VENEGAS [facility] [id number] Univers 10:45:00 10:45:00 [facility] 2021-02-13 2021-02-13 Jaison Rivera [facility] 1.2.215.483 [id number] Univers 00:00:00 00:00:00 Management Bo Hunt PACKAGER HEAD 350.1.13.10 ity of REGIONAL 4.2.7.2.686 Jose Juan as MATERNAL [id number] Med ical & CHILD [address] [place] [address] 2021-02-03 2021-02-03 Telephone Deanne [facility] 1.2.840.114 [id number] Univers 00:00:00 00:00:00 Aaron Strong PACKAGER HEAD 350.1.13.10 ity of REGIONAL 4.2.7.2.686 Jose Juan as MATERNAL [id number] Med ical & CHILD 124 [facility] 2021-02-01 2021-02-01 Outpatient R NICOLE [facility] [id number] Univers 10:45:00 11:09:09 BO erickson of [facility] 2021-02-01 2021-02-01 Routine Provider, Naun[facility] 1 .2.840.114 [id number] Univers 10:04:55 11:09:09 Bo Rivera PACKAGER HEAD 350.1.13.10 ity of Visit [facility] 4.2.7.2.686 Jose Juan as MATERNAL [id number] [facility] ical & CHILD [address] [place] [address] 2021-01-31 2021-01-31 Refill [facility] 1.2.840.114 [id number] Univers 00:00:00 00:00:00 Kamicat 350.1.13.10 it y of [place] 4.2.7.2.686 Jose Juan as LUCAS?BLEA [id number] [address] MEDICAL OFFICE BUILDING 2021-01-30 2021-01-30 Telephone [facility] 1.2.840.114 [id number] Univers 00:00:00 00:00:00 Aaron Strong PACKAGER HEAD 350.1.13.10 ity of [facility] 4.2.7.2.686 Jose Juan as MATERNAL [id number] [facility] & CHILD [address] [place] [address] 2021-01-29 2021-01-29 Refill [facility] 1.2.840.114 [id number] Univers 00:00:00 00:00:00 Siria Stokes PACKAGER HEAD 350.1.13.10 ity of [facility] 4.2.7.2.686 Jose Juan as MATERNAL [id number] [facility] ical & CHILD [address] [place] [address] 2021-01-29 2021-01-29 Refelzbieta Ad[facility] 1.2.840.114 [id number] Univers 00:00:00 00:00:00 RanXirrus 350.1.13.10 it y of [place] 4.2.7.2.686 Jose Juan as LUCAS?BLEA [id number] [address] MEDICAL OFFICE [facility] 2021-01-19 2021-01-19 Outpatient R CASEY [facility] [id number] Univers 14:40:00 15:06:44 AMAYA ity [facility] 2021-01-19 2021-01-19 Urgent Nguyễn Adhikari [facility] 1.2.840.114 [id number] Univers 14:22:57 15:06:44 [facility] 350.1.13.10 ity [facility] 4.2.7.2.686 Jose Juan as LUCAS?BLEA [id number] [address] OFFICE [facility] 2021-01-04 2021-01-04 Telephone [facility] 1.2.315.886 [id number] Univers 00:00:00 00:00:00 Anettea R PACKAGER HEAD 350.1.13.10 ity of REGIONAL 4.2.7.2.686 Jose Juan as MATERNAL [id number] Med ical & CHILD [address] [place] [address] 2021-01-03 2021-01-03 Telephone [facility] 1.2.698.401 [id number] Univers 00:00:00 00:00:00 Anettea R PACKAGER HEAD 350.1.13.10 ity of REGIONAL 4.2.7.2.686 Jose Juan as MATERNAL [id number] Med ical & CHILD [address] [place] [address] 2021-01-03 2021-01-03 Telephone [facility] 1.2.086.344 [id number] Univers 00:00:00 00:00:00 Rosnda R PACKAGER HEAD 350.1.13.10 ity of REGIONAL 4.2.7.2.686 Jose Juan as MATERNAL [id number] Med ical & CHILD [address] [place] [address] 2021-01-02 2021-01-02 Routine Provider, Oly [facility] 1 .2.840.114 [id number] Univers 10:45:39 11:10:03 Aaron Alicea P[place] 350.1.13 .10 ity of Visit REGIONAL 4.2.7.2.686 Jose Juan as MATERNAL [id number] Med ical & CHILD 107 [facility] 2021-01-02 2021-01-02 Outpatient R [facility] [id number] Univers 10:45:00 10:45:00 ity [facility] 2020-12-21 2020-12-21 Office Palmira Phillips [facility] 1.2.84 0.114 [id number] Univers 10:52:25 11:26:21 Visit Yair Escoto [facility] 350.1.13.10 ity of [facility] 4.2.7.2.[place] [id number] [address] 2020-12-21 2020-12-21 Outpatient P [facility] [id number] Univers 10:30:00 10:30:00 ity [facility] 2020-12-19 2020-12-19 Transit Planning Manager Ultrasound[facility] 1.2 .840.114 [id number] Univers 08:20:30 09:35:30 Visit Gianni Whitaker PACKAGER HEAD 350.1.13.1 0 ity of [facility] 4.2.7.2.686 Jose Juan as MATERNAL [id number] [facility] ical & CHILD 369 [facility] 2020-12-19 2020-12-19 Outpatient P [facility] [id number] Univers 08:00:00 08:00:00 ity [facility] 2020-12-19 2020-12-19 Abstract Anderson [facility] 1.2.840.114 [id number] Univers 00:00:00 00:00:00 Siria Stokes PACKAGER HEAD 350.1.13.10 ity of [facility] 4.2.7.2.686 Jose Juan as MATERNAL [id number] [facility] ical & CHILD [address] [place] [address] 2020-12-07 2020-12-07 Telephone Justin [facility] 1.2.365.715 [id number] Univers 00:00:00 00:00:00 Siria R [place] 350.1.13.10 ity of REGIONAL 4.2.7.2.686 Jose Juan as MATERNAL [id number] Med ical & CHILD 107 [facility] 2020-12-05 2020-12-05 Routine [facility] 1.2.840.114 [id number] Univers 10:15:59 10:54:56 Roshunda R [place] 350.1.13.10 ity of Visit REGIONAL 4.2.7.2.686 Jose Juan as MATERNAL [id number] [facility] ical & CHILD [address] [place] [address] 2020-12-05 2020-12-05 Routine [facility] 1.2.840.114 [id number] Univers 10:15:59 10:54:56 Roshunda R [place]ER [place] 350.1.13.10 ity of Visit REGIONAL 4.2.7.2.686 Jose Juan as MATERNAL [id number] [facility] & [address] 2020-12-05 2020-12-05 [facility] [id number] Univers 10:15:00 10:15:00 ROSHUNDA ity o f [facility] 2020-11-07 2020-11-07 Routine [facility] 1.2.840.114 [id number] Univers 08:42:18 09:41:48 Roshunda R [place] 350.1.13.10 ity of Visit REGIONAL 4.2.7.2.686 Jose Juan as MATERNAL [id number] [address] 2020-11-07 2020-11-07 Outpatient [facility] [id number] Univers 08:45:00 08:45:00 ROSHUNDA ity o f [facility] 2020-11-01 2020-11-01 Telephone [facility] 1.2.573.794 [id number] Univers 00:00:00 00:00:00 Roshunda R [place] 350.1.13.10 ity of REGIONAL 4.2.7.2.686 Jose Juan as MATERNAL [id number] [facility] & [address] 2020-10-27 2020-10-27 Telephone [facility] 1.2.367.215 [id number] Univers 00:00:00 00:00:00 Roshunda R [place] 350.1.13.10 ity of REGIONAL 4.2.7.2.686 Jose Juan as MATERNAL [id number] [facility] [address] [place] [address] 2020-10-26 2020-10-26 Telephone JEFFREY Anderson 1.2.824.044 [id number] Univers 00:00:00 00:00:00 Roshunda R [place] 350.1.13.10 ity of REGIONAL 4.2.7.2.686 Jose Juan as MATERNAL [id number] [facility] [address] [place] [address] 2020-10-19 2020-10-19 Transit Planning Manager Ultrasound, [facility] 1.2 .840.114 [id number] Univers 13:59:38 14:29:38 Visit Cristin Wei [place] 350.1. 13.10 ity of REGIONAL 4.2.7.2.686 Jose Juan as MATERNAL [id number] [facility] CH[facility] [address] [place] [address] 2020-10-19 2020-10-19 Outpatient P [facility] [id number] Univers 14:00:00 14:00:00 ity of [facility] 2020-10-19 2020-10-19 Abstract Justin GAGIL 1.2.840.114 [id number] Univers 00:00:00 00:00:00 Roshunda R [place] [place] 350.1.13.10 ity of REGIONAL 4.2.7.2.686 Jose Juan as MATERNAL [id number] [address] 2020-10-10 2020-10-10 Initial Justin GAGIL 1.2.840.114 [id number] Univers 08:57:06 09:57:15 Roshunda R [place] [place] 350.1.13.10 ity of Visit REGIONAL 4.2.7.2.686 Jose Juan as MATERNAL [id number] [facility] & CHILD [address] [place] [address] 2020-10-10 2020-10-10 Outpatient R [facility] [id number] Univers 08:30:00 08:30:00 ity of [facility] 2020-10-10 2020-10-10 Orders Doctor MAGDA 1.2.840.114 [id number] Univers 00:00:00 00:00:00 Only Unassigned, ERASTO 350.1.13.10 ity of [place] [facility] 4.2.7.2.686 Jose Juan as [id number] [facility] [address] 2020-06-24 2020-06-24 Outpatient R [facility] [id number] Univers 16:00:00 16:00:00 JULISSA erickson [facility] 2020-06-24 2020-06-24 Office Ad, [facility] 1.2.840.114 [id number] Univers 11:27:53 11:49:24 Visit Julissa Padilla 350.1.13.10 ity of [place].7.2.[place] [id number] Nv dical nal 134 [facility] 2020-06-24 2020-06-24 Outpatient R [facility] [id number] Univers 11:00:00 11:00:00 JULISSA erickson [facility] 2020-06-14 2020-06-14 Patient Anthony [facility] 1.2.840.114 [id number] Univers 00:00:00 00:00:00 Outreach Reji [facility] 350.1.13.10 i ty of [facility] 4.2.7.2.686 [place] [id number] Nv dical [address] 2020-06-08 2020-06-09 Emergency AnnEmma ramirez [facility] 1.2.840 .114 [id number] Univers 19:38:00 12:50:00 Zoe [place] [id number] ity of [place], Julissa Velázquez [id number] [facility] [phone] [facility] [address] 2020-06-08 2020-06-08 Urgent Provider, [facility] 1.2.840.114 [id number] Univers 18:59:31 19:19:31 Care Bony [facility] [id number] ity of [place] [id number] Jose Juan as Professio [id number] [address] 2020-06-08 2020-06-08 Outpatient R BONY [facility] [id number] Univers 18:40:00 18:40:00 SAADIA dre [facility] 2020-05-24 2020-05-24 [facility] 1.2.840.114 [id number] Univers 13:16:03 14:05:26 Visit [facility] [id number] i ty of [place] 4.2.7.2.686 Jose Juan as Professio [phone] [address] One 2020-05-24 2020-05-24 [facility] [id number] Univers 13:00:00 13:00:00 DELANO blastiara o f [facility] 2020-05-19 2020-05-19 [facility] [id number] Univers 13:00:00 13:00:00 YOVANY tiara [facility] 2020-05-19 2020-05-19 Orders Doctor MAGDA 1.2.840.114 [id number] Univers 00:00:00 00:00:00 Only Unassigned, ERASTO [id number] ity of [facility] 4.2.7.2.686 Jose Juan as [phone] [address] 2020-03-28 2020-03-28 [facility] 1.2.840.114 [id number] Univers 19:14:32 19:51:01 Care [facility] [id number] it y of [place] 4.2.7.2.686 Jose Juan as Professio [phone] [address] One 2020-03-28 2020-03-28 Outpatient R [facility] [id number] Univers 19:20:00 19:20:00 ity [facility] 2020-03-28 2020-03-28 Letter Doctor MAGDA 1.2.840.114 [id number] Univers 00:00:00 00:00:00 (Out) Unassigned, ERASTO [id number] ity of [facility] [id number] [facility] [phone] [address] 2020-01-15 2020-01-15 Outpatient [facility] [id number] [employer] 08:15:00 08:15:00 [facility] 2019-03-12 2019-03-12 [facility] [id number] [employer] 14:26:14 23:59:00 [facility] Results Test Description Test Time Test Comments Results Result Comments Source POCT TEST 2022-04-30 16:35:00 Test Item Value Reference Range Interpretation Comme nts POCT PREG (test code = 1605) Negative On board controls acceptable with C Line (test code = 3574) Yes POCT PREG LOT # (test code = 3575) PO[facility]REG TEST DATE (test code = 3576) [id number] 16:35:00 Test Item Value Reference Range Interpretation Comments POCT PREG (test code = 1605) Negative On board controls acceptable with C Yes Line (test code = 3574) POCT PREG LOT # (test code = 3575) POCT PREG TEST DATE (test code = 3576) [id number] 15:41:00 Test Item Value Reference Range Interpretation Comments POCT PREG (test code = 1605) Negative On board controls acceptable with C Yes Line (test code = 3574) POCT PREG LOT # (test code = 3575) POCT PREG TEST DATE (test code = 3576) [id number] 15:41:00 Test Item Value Reference Range Interpretation Comments POCT PREG (test code = 1605) Negative On board controls acceptable with C Yes Line (test code = 3574) POCT PREG LOT # (test code = 3575) POCT PREG TEST DATE (test code = 3576) [facility] [id number] 15:41:00 Test Item Value Reference Range Interpretation Comments POCT PREG (test code = 1605) Negative On board controls acceptable with C Yes Line (test code = 3574) POCT PREG LOT # (test code = 3575) POCT PREG TEST DATE (test code = 3576) [facility] [id number] 15:41:00 Test Item Value Reference Range Interpretation Comments POCT PREG (test code = 1605) Negative On board controls acceptable with C Yes Line (test code = 3574) POCT PREG LOT # (test code = 3575) POCT PREG TEST DATE (test code = 3576) [facility] [id number] 15:41:00 Test Item Value Reference Range Interpretation Comments POCT PREG (test code = 1605) Negative On board controls acceptable with C Yes Line (test code = 3574) POCT PREG LOT # (test code = 3575) POCT PREG TEST DATE (test code = 3576) [facility]22[facility] 16:42:23 ALCOHOL<10mg/dL03/03/2022 10:42 AM [facility]10 Hdfxineh38-163 Toxic>100 Depression of 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>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 Fatalities ReportedUnUSMD [facility] ArlingtonBASI METABOLIC PANEL (NA, K, CL, CO2, GLUCOSE, BUN, CREATININE, CA)2022-03-03 16:23:10 Test Item Value Reference Range Interpretation Comments NA (test code = 138 mmol/L 135-145 1972064979) K (test code = 3.9 mmol/L 3.5-5.0 7158969073) CL (test code = 106 mmol/L 98-108 5037676545) CO2 TOTAL (test code 24 mmol/L 23-31 = 0789146342) AGAP (test code = 2-16 6313521441) BUN (test code = 11 mg/dL 7-23 2161829183) GLUCOSE (test code = 95 mg/dL 70-110 5004256288) CREATININE (test code 0.62 mg/dL 0.50-1.04 = 7496146144) CALCIUM (test code = 9.4 mg/dL 8.6-10.6 6108167590) eGFR (test code = mL/min/1.73m2 2346139341) VASHTI (test code = VASHTI) Association of Glomerular Filtration Rate (GFR) and Staging of Kidney Disease* + + +- +| GFR (mL/min/1.73 m2) ?| With Kidney Damage ?| ?Without Kidney Damage+ ------+ ----+ ------+| ?>90 ?| ?Stage one ?| ? Normal ?+ -+ + -+| ?60-89 ?| ?Stage two ?| ? Decreased GFR ? + + +- +| ?30-59 ?| ?Stage three ?| ? Stage three ? + + +- +| ?15-29 ?| ?Stage four ? | ? Stage four ?+ -+ + -+| ?<15 (or dialysis) ? ?| ?Stage five ? | ? Stage five ?+ -+ + -+ *Each stage assumes the associated GFR level has been in effect for at least three months. ?Stages 1 to 5, with or without kidney disease, indicate chronic kidney disease. Notes: Determination of stages one and two (with eGFR >59mL/min/1.73 m2) requires estimation of kidney damage for at least three months as defined by structural or functional abnormalities of the kidney, manifested by either:Pathological abnormalities or Markers of kidney damage (including abnormalities in the composition of the blood or urine or abnormalities in imaging tests). [facility] WITH [id number] 16:19:13 Test Item Value Reference Range Interpretation Comments WBC (test code = See_Comment [Automated 2277-2) message] The sy stem which generated this result transmitted reference range : 4.30 - 11.10 10*3/?L. The reference range was not used to interpret this result as normal/abnormal . RBC (test code = See_Comment [Automated 760-8) message] The sy stem which generated this result transmitted reference range : 3.93 - 5.25 10*6/?L. The reference range was not used to interpret this result as normal/abnormal . HGB (test code = 13.1 g/dL 11.6-15.0 718-7) HCT (test code = 40.0 % 35.7-45.2 4544-3) MCV (test code = 82.1 fL 80.6-95.5 787-2) MCH (test code = 26.9 pg 25.9-32.8 785-6) MCHC (test code = 32.8 g/dL 31.6-35.1 786-4) RDW-SD (test code = 38.5 fL 39.0-49.9 L 21008-8) RDW-CV (test code = 12.9 % 12.0-15.5 788-0) PLT (test code = See_Comment [Automated 777-3) message] The sy stem which generated this result transmitted reference range : 166 - 358 10*3/ ?L. The reference r arthur was not used to interpret this result as normal/abnormal . MPV (test code = 10.2 fL 9.5-12.9 02233-1) NRBC/100 WBC (test See_Comment [Automat ed code = 5421980811) message] The system which generated this result transmitted reference range : 0.0 - 10.0 /100 WBCs. The refer ence range was not u sed to interpret th is result as normal/abnormal . NRBC x10^3 (test code See_Comment [Auto mated = 2036705987) message] The s ystem which generated this result transmitted reference range : 10*3/?L. The reference range was not used to interpret this result as normal/abnormal . GRAN MAT (NEUT) % 54.2 % (test code = 770-8) IMM GRAN % (test code 0.30 % = 3375988152) LYMPH % (test code = 39.1 % 736-9) MONO % (test code = 5.1 % 5905-5) EOS % (test code = 1.2 % 713-8) BASO % (test code = 0.1 % 706-2) GRAN MAT x10^3(ANC) 3.94 10*3/uL 1.88-7.09 (test code = 5026265224) IMM GRAN x10^3 (test 0.00-0.06 code = 3539024618) LYMPH x10^3 (test code 2.84 10*3/uL 1.32-3.29 = 731-0) MONO x10^3 (test code 0.37 10*3/uL 0.33-0.92 = 742-7) EOS x10^3 (test code = 0.09 10*3/uL 0.03-0.39 711-2) BASO x10^3 (test code 0.01-0.07 = 704-7) Lab Interpretation Abnormal (test code = 42221-8) [facility] [id number] 20:48:00 Test Item Value Reference Range Interpretation Comments POCT PREG (test code = 1605) Negative On board controls acceptable with C Yes Line (test code = 3574) POCT PREG LOT # (test code = 3575) POCT PREG TEST DATE (test code = 3576) [facility] URINALYSIS W SPECIFIC [id number] 22:32:00 Test Item Value Reference Range Interpretation Comments POCT U SP GRAV 1.020 mg/dl 1.005-1.025 (test code = 3255) POCT PH U (test 5.0 mg/dl 5-8 code = 3254) POCT U LEUK EST 1+ Negative - Negative (test code = 3263) POCT U NIT (test negative Negative - Negative code = 3262) POCT U PROT (test trace Negative - Negative code = 3259) POCT U GLU (test normal Negative - Negative code = 3256) POCT U KETONE negative Negative - Negative (test code = 3258) POCT U UROBILI normal 0.2-1 (test code = 3260) POCT U BILI (test negative Negative - Negative code = 3261) POCT U BLD (test trace Negative - Negative code = 3257) POCT U COLOR (test yellow code = 3266) POCT U APPEAR clear (test code = 3267) VASHTI (test code = accurate development and VASHTI) interpretation of all internal controls [facility] URINALYSIS W SPECIFIC [id number] 22:32:00 Test Item Value Reference Range Interpretation Comments POCT U SP GRAV 1.020 mg/dl 1.005-1.025 (test code = 3255) POCT PH U (test 5.0 mg/dl 5-8 code = 3254) POCT U LEUK EST 1+ Negative - Negative (test code = 3263) POCT U NIT (test negative Negative - Negative code = 3262) POCT U PROT (test trace Negative - Negative code = 3259) POCT U GLU (test normal Negative - Negative code = 3256) POCT U KETONE negative Negative - Negative (test code = 3258) POCT U UROBILI normal 0.2-1 (test code = 3260) POCT U BILI (test negative Negative - Negative code = 3261) POCT U BLD (test trace Negative - Negative code = 3257) POCT U COLOR (test yellow code = 3266) POCT U APPEAR clear (test code = 3267) VASHTI (test code = accurate development and VASHTI) interpretation of all internal controls [facility] [id number] 15:36:00 Test Item Value Reference Range Interpretation Comments POCT PREG (test code = 1605) Negative On board controls acceptable with C Yes Line (test code = 3574) POCT PREG LOT # (test code = 3575) POCT PREG TEST DATE (test code = 3576) [facility]"
[2022-09-18 01:50] LABS: Absolute Lymphocytes (CBC) 2.8 K/uL (0.7-4.9); Hematocrit 36.4 % (36.0-45.0); Lymphocytes % 30.3 % (15.3-44.8); MCV 80.3 fL (80-100); MPV 8.3 fL (7.6-11.3); RBC Red Blood Cell Count 4.54 M/uL (3.86-4.86)
[2022-09-18 01:56] LABS: Albumin 3.6 g/dL (3.4-5.0); Bilirubin Total 0.2 mg/dL (0.2-1.0); Potassium 3.3 mEq/L (3.5-5.1); Protein, Total 7.7 g/dL (6.4-8.2)
[2022-09-18] MEDS ORDERED: NA CHLORIDE 0.9% 1,000 ML ONE (01:57)
[2022-09-18 02:20] LABS: Specific Gravity 1.039 (1.005-1.030)
[2022-09-18 02:23] LABS: Specific Gravity > 1.030 (1.005-1.030); Urine Bacteria <20 /HPF (<20); Urine Bilirubin NEGATIVE (Negative); Urine Blood Trace (Negative); Urine Clarity Extremely Turbid (Clear); Urine Color Yellow (Yellow); Urine Glucose NEGATIVE (Negative); Urine Mucus 1+ /HPF (None Seen); Urine Protein 1+ (Negative); Urine Urobilinogen Normal (Normal)
[2022-09-18] MEDS ORDERED: NA CHLORIDE 0.9% 50 ML ONE (03:56)
[2022-09-18] MEDS ORDERED: CIPROFLOXACIN HCL 500 MG TAB ONE (03:56)
[2022-09-18] MEDS ORDERED: CEFTRIAXONE 1000 MG/VIAL ONE (03:56)
--- NOTE | 2022-09-18 04:36 | ER ---
Nurse's Notes [facility] Name: Thao Lang Age: 27 yrs Sex: Female : 1995 Arrival Date: 09/18/2022 Time: 00:43 Bed 19 Private MD: Diagnosis: Abdominal tenderness;UTI/ Urinary tract infection, site not specified Presentation: 09/18 00:50 Chief complaint: EMS states: 27 year old female reports having an allergic reaction to ha1 her control. She has been using the control for one month. 00:50 Method Of Arrival: EMS: [facility] ha1 00:50 Coronavirus screen: Vaccine status: Patient reports being unvaccinated. Ebola Screen: ha1 No symptoms or risks identified at this time. Initial Sepsis Screen: Does the patient meet any 2 criteria? No. Patient's initial sepsis screen is negative. Does the patient have a suspected source of infection? No. Patient's initial sepsis screen is negative. Risk Assessment: Do you want to hurt yourself or someone else? Patient reports no desire to harm self or others. Onset of symptoms was September 18, 2022. 00:50 Acuity: IZABELLA 3 ha1 Triage Assessment: 00:50 General: Appears comfortable, Behavior is calm, cooperative. Pain: Denies pain. Neuro: ha1 Level of Consciousness is awake, alert, obeys commands, Oriented to person, place, time, situation. Cardiovascular: Patient's skin is warm and dry. Respiratory: Airway is patent Respiratory effort is even, unlabored, Respiratory pattern is regular, symmetrical. GI: Abdomen is round non-distended. : Reports pt. states " I think I might have a UTI". Derm: Skin is pink, warm \\T\\ dry. Musculoskeletal: Circulation, motion, and sensation intact. Range of motion: intact in all extremities. Historical: - Allergies: 01:35 No Known Allergies; ha1 - PMHx: 01:35 Asthma; ha1 - Immunization history:: Adult Immunizations unknown. - Social history:: Smoking status: Patient/guardian denies using tobacco, but has a distant history of tobacco abuse. Screenin:50 Abuse screen: Denies threats or abuse. Denies injuries from another. ha1 00:50 Nutritional screening: No deficits noted. Tuberculosis screening: No symptoms or risk ha1 factors identified. 00:50 [facility] ED Fall Risk Assessment (Adult) History of falling in the last 3 months, ha1 including since admission No falls in past 3 months (0 pts) Confusion or Disorientation No (0 pts) Score/Fall Risk Level 0 - 2 = Low Risk Oriented to surroundings. Assessment: 00:50 Reassessment: see triage assessment. ha1 01:50 Reassessment: Patient and/or family updated on plan of care and expected duration. Pain ha1 level reassessed. Patient is alert, oriented x 3, equal unlabored respirations, skin warm/dry/pink. 02:50 Reassessment: Patient and/or family updated on plan of care and expected duration. Pain ha1 level reassessed. Patient is alert, oriented x 3, equal unlabored respirations, skin warm/dry/pink. back from CT. 03:50 Reassessment: Patient and/or family updated on plan of care and expected duration. Pain ha1 level reassessed. Patient is alert, oriented x 3, equal unlabored respirations, skin warm/dry/pink. 04:50 Reassessment: Patient and/or family updated on plan of care and expected duration. Pain ha1 level reassessed. Patient is alert, oriented x 3, equal unlabored respirations, skin warm/dry/pink. Patient states feeling better. Patient states symptoms have improved. Vital Signs: 00:50 BP 129 / 88; Pulse 92; Resp 18 S; Temp 98.2; Pulse Ox 98% on R/A; Weight 124.74 kg; ha1 Height 5 ft. 5 in. ; 01:50 BP 124 / 82; Pulse 93; Resp 18 S; Pulse Ox 99% on R/A; ha1 02:50 BP 126 / 62; Pulse 90; Resp 18 S; Pulse Ox 99% on R/A; ha1 03:50 BP 120 / 62; Pulse 85; Resp 16 S; Pulse Ox 97% on R/A; ha1 04:50 BP 112 / 64; Pulse 84; Resp 16 S; Pulse Ox 98% on R/A; ha1 00:50 Body Mass Index 45.76 (124.74 kg, 165.1 cm) ha1 ED Course: 00:50 Patient arrived in ED. ha1 00:50 Mary Laguna, RN is Primary Nurse. ha1 00:50 Patient has correct armband on for positive identification. Bed in low position. Call ha1 light in reach. Side rails up X 1. 00:55 Driss Mckeon PA is PHCP. cp 00:55 Driss Mckeon MD is Attending Physician. cp 01:30 Arm band placed on right wrist. ha1 01:33 CBC with Diff Sent. bc6 01:33 CMP Sent. bc6 01:33 Lipase Sent. bc6 01:33 Inserted saline lock: 22 gauge in right wrist, using aseptic technique. bc6 01:35 Triage completed. ha1 01:47 CBC with Diff Sent. ha1 01:47 CMP Sent. ha1 01:47 Lipase Sent. ha1 03:00 CT Abd/Pelvis - IV Contrast Only In Process Unspecified. EDMS 05:02 No provider procedures requiring assistance completed. IV discontinued, intact, ha1 bleeding controlled, No redness/swelling at site. Pressure dressing applied. Administered Medications: 01:40 Drug: NS 0.9% IV 1000 ml Route: IV; Rate: 1 bolus; Site: right hand; ha1 04:05 Follow up: Response: No adverse reaction; IV Status: Completed infusion; IV Intake: ha1 1000ml 04:04 Drug: Ciprofloxacin PO 500 mg Route: PO; ha1 05:03 Follow up: Response: No adverse reaction ha1 04:05 Drug: Rocephin IV 1 grams Route: IV; Rate: per protocol; Site: right hand; ha1 05:03 Follow up: Response: No adverse reaction; IV Status: Completed infusion; IV Intake: [id number] Medication: 05:04 VIS not applicable for this client. ha1 Intake: 04:05 IV: 1000ml; Total: 1000ml. ha1 05:03 IV: 50ml; Total: 1050ml. ha1 Outcome: 04:35 Discharge ordered by . leena 05:03 Discharged to home ambulatory. ha1 05:03 Condition: stable 05:03 Discharge instructions given to patient, Instructed on discharge instructions, follow up and referral plans. medication usage, Demonstrated understanding of instructions, follow-up care, medications, Prescriptions given X 4. 05:06 Patient left the ED. ha1 Signatures: Dispatcher [employer] EDOR Driss Mckeon MD MD cha Page, Corey, PA PA cp Ayala, Heidy, RN RN ha1 Sejal Azevedo 6 Corrections: (The following items were deleted from the chart) 01:35 00:50 Chief complaint: ha1 ha1 01:35 01:35 PMHx: None; ha1 ha1
--- NOTE | 2022-09-18 04:36 | EDPHYS ---
Physician Documentation [facility] Name: Thao Lang Age: 27 yrs Sex: Female : 1995 Arrival Date: 09/18/2022 Time: 00:43 Bed 19 Private MD: CLARITA Physician Driss Mckeon HPI: 09/18 01:05 This 27 yrs old Female presents to ER via EMS with complaints of Abdominal cp Pain. 01:05 The patient presents with abdominal pain. Onset: The symptoms/episode began/occurred cp for past 1-2 months. The symptoms do not radiate. Associated signs and symptoms: Pertinent positives: fever, vaginal bleeding. The symptoms are described as waxing/waning. Patient reports having IUD placed in May or June 2022 and since having abdominal pain, vaginal bleeding. Patient reports concern for allergic reaction to IUD. Historical: - Allergies: 01:35 No Known Allergies; ha1 - PMHx: 01:35 Asthma; ha1 - Immunization history:: Adult Immunizations unknown. - Social history:: Smoking status: Patient/guardian denies using tobacco, but has a distant history of tobacco abuse. ROS: 01:10 Constitutional: Negative for body aches, chills, fever, poor PO intake. cp 01:10 Eyes: Negative for injury, pain, redness, and discharge. cp 01:10 Cardiovascular: Negative for chest pain, palpitations. 01:10 Respiratory: Negative for cough, shortness of breath, wheezing. 01:10 Abdomen/GI: Positive for abdominal pain, Negative for vomiting, diarrhea, constipation. 01:10 : Positive for vaginal bleeding, Negative for flank pain. 01:10 Neuro: Negative for altered mental status, dizziness, headache, weakness. 01:10 All other systems are negative. Exam: 01:15 Constitutional: The patient appears in no acute distress, alert, awake, non-toxic, well cp developed, well nourished, obese. 01:15 Head/Face: Normocephalic, atraumatic. cp 01:15 Eyes: Periorbital structures: appear normal, Conjunctiva: normal, no exudate, no injection, Sclera: no appreciated abnormality, Lids and lashes: appear normal, bilaterally. 01:15 ENT: External ear(s): are unremarkable, Nose: is normal, Mouth: Lips: moist, Oral mucosa: moist, Posterior pharynx: is normal, airway is patent, no erythema, no exudate. 01:15 Chest/axilla: Inspection: normal. 01:15 Cardiovascular: Rate: normal. 01:15 Respiratory: the patient does not display signs of respiratory distress, Respirations: normal, no use of accessory muscles, no retractions, labored breathing, is not present, Breath sounds: are clear throughout, no decreased breath sounds, no stridor, no wheezing. 01:15 Abdomen/GI: Inspection: abdomen appears normal, Bowel sounds: active, all quadrants, Palpation: soft, in all quadrants, mild abdominal tenderness, in the right lower quadrant and left lower quadrant, rebound tenderness, is not appreciated, involuntary guarding, is not appreciated. 01:15 Back: CVA tenderness, is absent. Vital Signs: 00:50 BP 129 / 88; Pulse 92; Resp 18 S; Temp 98.2; Pulse Ox 98% on R/A; Weight 124.74 kg; ha1 Height 5 ft. 5 in. ; 01:50 BP 124 / 82; Pulse 93; Resp 18 S; Pulse Ox 99% on R/A; ha1 02:50 BP 126 / 62; Pulse 90; Resp 18 S; Pulse Ox 99% on R/A; ha1 03:50 BP 120 / 62; Pulse 85; Resp 16 S; Pulse Ox 97% on R/A; ha1 04:50 BP 112 / 64; Pulse 84; Resp 16 S; Pulse Ox 98% on R/A; ha1 00:50 Body Mass Index 45.76 (124.74 kg, 165.1 cm) ha1 MDM: 00:56 Patient medically screened. cp 01:30 Differential diagnosis: appendicitis, cholecystitis, Cholelithiasis, Endometriosis, cp gastritis, Ovarian Torsion, Pelvic Inflammatory Disease, Ureterolithiasis, urinary tract infection. 09/18 01:02 Order name: CBC with Diff; Complete Time: 02:25 cp 09/18 02:25 Interpretation: Normal except: HGB 11.9; MCH 26.2. cp 09/18 01:02 Order name: CMP; Complete Time: 02:25 cp 09/18 02:25 Interpretation: Normal except: K 3.3; CL 110; GLUC 113; GLOB 4.1; A/G 0.9. cp 09/18 01:02 Order name: Lipase; Complete Time: 02:25 cp 09/18 01:02 Order name: Test, Urine; Complete Time: 02:25 cp 09/18 01:02 Order name: Urinalysis w/ reflexes; Complete Time: 02:25 cp 09/18 02:25 Interpretation: Normal except: [facility] Extremely Turbid; Urine SG > 1.030; UBLD Trace; cp UPROT 1+; UESTR 500; UWBC 10-20; URBC 5-10. 09/18 02:26 Order name: Urine Culture EDMS 09/18 01:43 Order name: CT Abd/Pelvis - IV Contrast Only cp 09/18 01:02 Order name: IV Saline Lock; Complete Time: 01:33 cp 09/18 01:02 Order name: Labs collected and sent; Complete Time: :33 cp Administered Medications: 01:40 Drug: NS 0.9% IV 1000 ml Route: IV; Rate: 1 bolus; Site: right hand; ha1 04:05 Follow up: Response: No adverse reaction; IV Status: Completed infusion; IV Intake: ha1 1000ml 04:04 Drug: Ciprofloxacin PO 500 mg Route: PO; ha1 05:03 Follow up: Response: No adverse reaction ha1 04:05 Drug: Rocephin IV 1 grams Route: IV; Rate: per protocol; Site: right hand; ha1 05:03 Follow up: Response: No adverse reaction; IV Status: Completed infusion; IV Intake: [id number] Disposition Summary: 09/18/22 04:35 Discharge Ordered Location: Home leena Problem: new leena Symptoms: have improved leena Condition: Stable leena Diagnosis - Abdominal tenderness leena - UTI/ Urinary tract infection, site not specified leena Followup: leena - With: Private Physician - When: 2 - 3 days - Reason: Recheck today's complaints, Continuance of care, Re-evaluation by your physician Discharge Instructions: - Discharge Summary Sheet leena - Abdominal Pain, Adult leena - Dysuria leena - Urinary Tract Infection, Adult leena - Urinary Tract Infection, Adult, [id number] leena - Abdominal Pain, Adult, [id number]-Ycvm leena Forms: - Medication Reconciliation Form leena - Thank You Letter leena - Antibiotic Education leena - Prescription Opioid Use [email or web address] [facility] Prescriptions: - Cipro 250 mg Oral Tablet - take 1 tablet by ORAL route every 12 hours; 14 tablet; Refills: 0, Product leena Selection Permitted - Pepcid 20 mg Oral Tablet - take 1 tablet by ORAL route every 12 hours for 21 days; 42 tablet; Refills: 0, [facility] Product Selection Permitted - Zofran 4 mg Oral Tablet - take 1 tablet by ORAL route every 12 hours As needed; 20 tablet; Refills: 0, [facility] Product Selection Permitted - dicyclomine 20 mg Oral Tablet - take 1 tablet by ORAL route 4 times per day; 28 tablet; Refills: 0, Product leena Selection Permitted Signatures: Dispatcher [employer] EDMT Driss Mckeon MD MD cha Page, Corey, PA PA Mary Chung RN RN ha1 Corrections: (The following items were deleted from the chart) 01:35 01:35 PMHx: None; ha1 ha1 03:22 03:19 This 27 yrs old Female presents to ER via EMS with complaints of cp Abdominal Pain. cp
[2022-09-18 05:12] VITALS: TEMP 98.2
[2022-09-18 05:17] VITALS: BP 112/64; O2SAT 98
--- NOTE | 2022-09-18 21:53 | RAD REPORT ---
EXAM DESCRIPTION: CT Abdomen and Pelvis With Intravenous Contrast CLINICAL HISTORY: The patient is 27 years old and is Female; ABD PAIN TECHNIQUE: Axial computed tomography images of the abdomen and pelvis with intravenous contrast. S agittal and coronal reformatted images were created and reviewed. This CT exam was performed using one or more of the following dose reduction techniques: automated exposure control, adjustment of t he mA and/or kV according to patient size, and/or use of iterative reconstruction technique. COMPARISON: No relevant prior studies available. FINDINGS: Lung bases: Unremarkable. No mass. No consolidation. ABDOMEN: Liver: Hepatomegaly. Gallbladder and bile ducts: Contracted gallbladder without calcified gallstones visualized. No ductal dilation. Pancreas: No findings to suggest acute pancreatitis. No mass visualized. No ductal dilation. Spleen: Spleen is in the upper limits of normal in size. Adrenals: Unremarkable. No mass. Kidneys and ureters: Unremarkable. No solid mass. No hydronephrosis. Stomach and bowel: No bowel dilatation or obstruction. No bowel wall thickening. PELVIS: Appendix: The visualized appendix is normal. No pericecal inflammation to suggest acute appendici tis. Bladder: Unremarkable. No mass. Reproductive: IUD in the lower uterine segment. No adnexal mass. ABDOMEN and PELVIS: Intraperitoneal space: Unremarkable. No free air. No significant fluid collection. Bones/joints: No acute fracture. No dislocation. Soft tissues: Unremarkable. Vasculature: Unremarkable. No abdominal aortic aneurysm. Lymph nodes: No pathologically enlarged lymph nodes. IMPRESSION: 1. No acute obstructive or inflammatory process identified. Normal appendix. 2. Additional non-emergent findings as above. Electronically signed by: Lillian Carter MD 09/18/2022 4:18 AM CDT Due to temporary technical issues with the PACS/Fluency reporting system, reports are being signed by the in house radiologists without review as a courtesy to insure prompt reporting. The interpreting radiologist is fully responsible for the content of the report.
== END 2022-09-18 05:06 | disposition home or self-care (01) ==
LOC: ER 00:43
DX: N39.0 Urinary tract infection, site not specified (principal)
CPT/HCPCS: 87088; 85025; 81001; 87086; 36415; 81025; 83690; 80053; 74177; Q9967; J7030; J0696

== ENCOUNTER 2023-02-15 19:40 | Emergency (ER) | payer OTHER, SELFPAY ==
--- OUTSIDE RECORDS SUMMARY | 2023-02-15 19:47 | XMS REPORT | Continuity of Care Document ---
:1995 Author Organization [facility] t Address [address] [facility] [address] [place] [address] Care Team Providers Name Role Phone ESTEVAN ADAMS Primary Care Physician Unavailable OMKAR HOU Attending Clinician Unavailable OMKAR HOU Attending Clinician Unavailable JULISSA MICHELE Attending Clinician Unavailable JENNIFER ANSARI Attending Clinician Unavailable ESTEVAN ADAMS Attending Clinician Unavailable [email or web address]_Kadiyala_S Attending Clinician Unavailable Estevan Oliveira Attending Clinician [phone] Jessika Manrique MD Attending Clinician JESSIKA MANRIQUE Attending Clinician Unavailable Unknown, Attending Attending Clinician Unavailable Jennifer Ansari CNM Attending Clinician Doctor Unassigned, Brown Deer Attending Clinician Unavailable SIRIA ANDERSON Attending Clinician Unavailable TIANA ANTONIO Attending Clinician Unavailable Tiana Antonio MD Attending Clinician Visit, Oly Nurse Attending Clinician Unavailable Siria Boo Attending Clinician Maisha West RN Attending Clinician Unavailable EASTON RIOJAS Attending Clinician Unavailable NurseNaun Exp Cprit Obgyn Attending Clinician Unavail able JODEE MALIK Attending Clinician Unavailable Jodee Malik MD Attending Clinician Zbigniew Fernandez MD Attending Clinician Mariluz MARC, Glen Attending Clinician Marlon MARC, Leonel Attending Clinician Ultrasound, Naun-Mfm Attending Clinician Unavailable Katelyn Murillo MD Attending Clinician KATELYN MURILLO Attending Clinician Unavailable KATELYN MURILLO Attending Clinician Unavailable Lab, Ang-Rmchp Attending Clinician Unavailable Yelena WHCNP, Aaron O Attending Clinician [phone] AARON ALICEA Attending Clinician Unavailable Provider, Ang-Rmchp Temp Attending Clinician Unavailable Jori MARC, Silvana Attending Clinician SILVANA VENEGAS Attending Clinician Unavailable SILVANA VENEGAS Attending Clinician Unavailable Nicole CUSTOMER COUNTER ASSOCIATE, Bo Hunt Attending Clinician BO RIVERA Attending Clinician Unavailable Onofre RAMÍREZP, Nguyễn Attending Clinician AMAYA GURROLA Attending Clinician Unavailable Casey CUSTOMER COUNTER ASSOCIATE, Amaya Attending Clinician Palmira Phillips Attending Clinician Unavailable Jevon MARC, Yair Borjas Attending Clinician Sherman MARC, Gianni Chou Attending Clinician Robbie Wolfe MD, Cristin Attending Clinician [phone] Leny MARC, Julissa Nunez Attending Clinician Reji Murillo DO Attending Clinician Seth CUSTOMER COUNTER ASSOCIATE, Emma Attending Clinician Zoe Toledo MD Attending Clinician Provider, [facility] Attending Clinician Unavailable Bony SHARMA, Saadia Attending Clinician SAADIA LOVETT Attending Clinician Unavailable Omar SHARMA, Delano Attending Clinician DELANO HANKINS Attending Clinician Unavailable YOVANY DIOR Attending Clinician Unavailable JAIME CLEMENT Attending Clinician Unavailable [email or web address]_Cary_Milad Admitting Clinician Unavailable JODEE MALIK Admitting Clinician Unavailable Jodee Malik MD Admitting Clinician Julissa Michele MD Admitting Clinician Payers Payer Name Policy Type Policy Number Effective Date Expiration Date Milad polanco [employer] [place] [id number] 2016 EMPLOYEE PLAN 00:00:00 [place] [employer] [id number] 2022 00:00:00 MEDICAID PENDING PENDING 2020 00:00:00 Problems Condition Condition Condition Status Onset Resolution Last Treating Co mments Source Name Details Category Date Date Treatment Clinician Date Presence Presence Disease Active Unive rs of of 7-13 [place]y of [place] Medical contracept contracept Br anch yamila device yamila device History of History of Disease Active Overview : Univers abnormal abnormal 7-13 Formattin ity of cervical cervical 00:00: g of this [place] Pap smear Pap smear 00 note Medi curtis might be Branch different from the original. 09/2020 LGSIL Folliculit Folliculit Disease Active U nivers is is 4-12 ity of 00:00: [place] 00 Medical Branch Flu Flu Disease Active Univers vaccine vaccine 3-30 ity of need need 00:00: [place] 00 Medical Branch Vaginal Vaginal Disease Active Univers lesion lesion 3-30 ity of 00:00: [place] 00 Medical Branch Research Research Disease Active Overview: Un francoise study study 2-16 Formattin ity of patient patient 00:00: g of this [place] 00 note Medical might be Branch different from the original. PACT (fellow) Elevated Elevated Disease Active Unive rs blood-pres blood-pres 2-15 it y of sure sure 00:00: [place] reading, reading, 00 Medica l without without Branch diagnosis diagnosis of of hypertensi hypertensi on on COVID COVID Disease Active Univers 2-01 ity of 00:00: [place] 00 Medical Branch GBS (group GBS (group Disease Active Overview : Univers B B 1-27 Formattin ity of Streptococ Streptococ 00:00: g of this [place] cus cus 00 note Medical carrier), carrier), might be Br anch +RV +RV different culture, culture, from the currently currently original. Address in labor and delivery. Upper Upper Disease Active Univers respirator respirator 1-18 it y of y symptom y symptom 00:00: Danyel hernandez [facility] Anemia of Anemia of Disease Active 2020-03 Uni vers mother in mother in 2-16 ity of , , [place] antepartum antepartum 00 Wy dical Branch Abnormal Abnormal Disease Active 2020-03 Unive rs quad quad 2-16 ity of screen screen 00:00: [address] Abnormal Abnormal Disease Active Overview: Un francoise glandular glandular 8-04 Formattin i ty of Papanicola Papanicola 00:00: g of this [place] ou smear ou smear 00 note Medica l of cervix of cervix might be Br anch different from the original. LGSIL on 2020 pap smear, needs repeat in 12 months Supervisio Supervisio Disease Active U nivers n of high n of high 7-19 ity of risk risk 00:00: [place] 00 [facility] in third in third Branch trimester trimester SAB SAB Disease Active Univers (spontaneo (spontaneo -19 it y of us us 00:00: [place] ) ) 00 [facility] Disease Active Uni vers in first in first -19 ity of trimester trimester 00:00: Danyel hernandez with with 00 Medical history of history of Br anch ectopic ectopic Primigravi Primigravi Disease Active U nivers da in da in -19 ity of third third 00:00: [place] trimester trimester 00 [facility] BMI BMI Disease Active Univers 45.0-49.9, 45.0-49.9, 7-19 it y of adult adult 00:00: [place] 00 [facility] History of History of Disease Active U nivers ectopic ectopic 4-02 ity of 00:00: Danyel hernandez 00 [facility] Screening Screening Disease Active Uni vers examinatio examinatio 2-16 it y of n for STD n for STD 00:00: Danyel hernandez (sexually (sexually 00 [facility] transmitte transmitte Br anch d disease) d disease) Morbid Morbid Disease Active [facility] obesity obesity 1-06 ity of 00:00: [address] Allergies, Adverse Reactions, Alerts Allergy Allergy Status Severity Reaction(s) Onset Inactive Treating Comm ents Source Name Type Date Date Clinician NO KNOWN Drug Active Univers ALLERGIE Class ity of S [facility] Social History Social Habit Start Date Stop Date Quantity Comments Source History SDOH University o f Alcohol Frequency [place] M edical Branch History SDOH University o f Alcohol Std Drinks [place] [facility] [place] History SDPR University o f Alcohol Binge [place] [facility] al [facility] Gender identity Universit y of [facility] Sexual orientation Univer sity of [facility] ASSERTION [facility] Alcohol intake 2022-12-02 2022-12-02 Current drinker Unive rsity of 00:00:00 00:00:00 of alcohol [facility] (finding) Branch History of Social 2022-12-02 2022-12-02 Univers ity of function 00:00:00 00:00:00 [facility] Alcohol Comment 2022-10-02 2022-10-02 occasional Universit y of 00:00:00 00:00:00 [facility] Exposure to 2022-04-20 2022-04-30 Not sure [facility] SARS-CoV-2 (event) 00:00:00 10:31:00 [facility] Tobacco use and 2021-12-06 2021-12-06 Smokeless tobacco Un iversity of exposure 00:00:00 00:00:00 non-user [facility] Sex [birth year] Universit y of 00:00:00 00:00:00 [facility] Smoking Status Start Date Stop Date Source Never smoked tobacco [facility] Medications Ordered Filled Start Stop Current Ordering Indication Dosage Frequency Signature Comments Components Source Medication Medication Date Date Medication? Clinician (SIG) Name Name azelastine Yes [id number] 1{spray Use 1 Univers 137 mcg 9-13 } [place] in ity of (0.1 %) 00:00: each [place] nasal spray 00 nostril in Wy dical the Branch morning and 1 [place] in the evening. Use in each nostril as directed bromphenira Yes [id number] 10mL Take 10 mL Univers mine-pseudo 9-13 by mouth 4 it y of ephedrine-D 00:00: ([place] M (BROMFED 00 times Medical DM) 2-30-10 daily as Bran ch mg/5 mL needed for syrup Congestion /Allergies , Cough or Cold symptoms. fluticasone 2023-0 Yes [id number] 1{spray Use 1 Univers propionate 9-13 } [place] in ity o f 50 00:00: each [place] mcg/actuati 00 nostril in Me dical on nasal the Branch spray morning. methylPREDN 2023-0 Yes [id number] Take by Univers ISolone 9-13 mouth ity of (MEDROL, 00:00: SEE-INSTRU [place] KRISTA,) 4 mg 00 CTIONS. Medica l tablets follow Branch package directions azelastine 2023-0 Yes [id number] 1{spray Use 1 Univers 137 mcg 9-13 } [place] in ity of (0.1 %) 00:00: each [place] nasal spray 00 nostril in Me dical the Branch morning and 1 [place] in the evening. Use in each nostril as directed bromphenira 2023-0 Yes [id number] 10mL Take 10 mL Univers mine-pseudo 9-13 by mouth 4 it y of ephedrine-D 00:00: ([place] (BROMFED 00 times Medical DM) 2-30-10 daily as Bran ch mg/5 mL needed for syrup Congestion /Allergies , Cough or Cold symptoms. fluticasone 2023-0 Yes [id number] 1{spray Use 1 Univers propionate 9-13 } [place] in ity o f 50 00:00: each [place] mcg/actuati 00 nostril in Me dical on nasal the Branch spray morning. methylPREDN 2023-0 Yes [id number] Take by Univers ISolone 9-13 mouth ity of (MEDROL, 00:00: SEE-INSTRU [place] KRISTA,) 4 mg 00 CTIONS. Medica l tablets follow Branch package directions bromphenira 2023-0 Yes [id number] 10mL Take 10 mL Univers mine-pseudo 9-10 by mouth 4 it y of ephedrine-D 00:00: (four[place] (BROMFED 00 times Medical DM) 2-30-10 daily as Bran ch mg/5 mL needed for syrup Congestion /Allergies , Cough or Cold symptoms. azelastine 2023-0 Yes [id number] 1{spray Use 1 Univers 137 mcg 9-10 } [place] in ity of (0.1 %) 00:00: each [place] nasal spray 00 nostril in Me dical the Branch morning and 1 [place] in the evening. Use in each nostril as directed fluticasone 2022-0 Yes [id number] 1{spray Use 1 Univers propionate 9-10 } [place] in ity o f 50 00:00: each [place] mcg/actuati 00 nostril in Me dical on nasal the Branch spray morning. methylPREDN 2022-0 Yes [id number] Take by Univers ISolone 12-02 mouth ity of (MEDROL, 00:00: SEE-INSTRU [place] KRISTA,) 4 mg 00 CTIONS. Medica l tablets follow Branch package directions bromphenira 2022- No [id number] 10mL Take 10 mL Univers mine-pseudo 12-02 by mouth 4 i ty of ephedrine-D 00:00: 00:00 (four) [place] M (BROMFED 00 :00 times Medical DM) 2-30-10 daily as Bran ch mg/5 mL needed for syrup Congestion /Allergies , Cough or Cold symptoms. azelastine 3- No [id number] 1{spray Use 1 Univers 137 mcg 12-02 } [place] in ity of (0.1 %) 00:00: 00:00 each [place] nasal spray 00 :00 nostril in Me dical the Branch morning and 1 [place] in the evening. Use in each nostril as directed fluticasone 2022-0 2023- No [id number] 1{spray Use 1 Univers propionate 12-02 } [place] in ity of 50 00:00: 00:00 each [place] mcg/actuati 00 :00 nostril in Me dical on nasal the Branch spray morning. methylPREDN 2022-0 2023- No [id number] Take by Univers ISolone 12-02 mouth ity of (MEDROL, 00:00: 00:00 [place] KRISTA,) 4 mg 00 :00 CTIONS. Medica l tablets follow Branch package directions metroNIDAZO 2022-0 3- No [id number] 2000mg Take 4 Univers LE 500 mg 7-13 07-14 tablets by ity of tablet 00:00: 04:59 [place] 00 :00 now for 1 Medical dose. Branch copper 2022- No [id number] 1{IUD} Uni vers (PARAGARD T 2- 02-06 ity of 380A) IUD 1 17:45: 17:01 [place] Intra 00 :00 Medical Uterine Branch Device copper 2022- No [id number] 1{IUD} 1 Intra Univers (PARAGARD T 2-06 Uterine ity of 380A) IUD 1 17:45: 17:01 [place], [place] Intra 00 :00 Intrauteri Medical Uterine ne, ONCE, Branch Device 1 dose, On Sat04/30/22 at 1145, Routine copper 2022- No [id number] 1{IUD} Uni vers (PARAGARD T 2-06 ity of 380A) IUD 1 17:45: 17:01 [place] Intra 00 :00 Medical Uterine Branch Device copper 2022- No [id number] 1{IUD} 1 Intra Univers (PARAGARD T 04-30- Uterine ity of 380A) IUD 1 17:45: 17:01 [place], [place] Intra 00 :00 Intrauteri Medical Uterine ne, ONCE, Branch Device 1 dose, On Sat04/30/22 at 1145, Routine amoxicillin 2021-03- No [id number] 1{tbl} Take 1 Univers -clavulanat 03-26 11-10 tablet by it y of e 00:00: 05:59 mouth in [place] (AUGMENTIN) 00 :00 the Medical 875-125 mg morning Branch per tablet and 1 tablet in the evening. Do all this for 7 days. amoxicillin 2021-03- No [id number] 1{tbl} Take 1 Univers -clavulanat - 11-10 tablet by it y of e 00:00: 05:59 mouth in [place] (AUGMENTIN) 00 :00 the Medical 875-125 mg morning Branch per tablet and 1 tablet in the evening. Do all this for 7 days. phenazopyri 2021-03- No [id number] 200mg Take 2 Univers dine 100 mg 03-26-05 tablets by i ty of tablet 00:00: 04:59 mouth in [place] 00 :00 the Medical morning Branch and 2 tablets at noon and 2 tablets in the evening. Do all this for 2 days. phenazopyri 2021-03- No [id number] 200mg Take 2 Univers dine 100 mg 03-26 1105 tablets by i ty of tablet 00:00: 04:59 mouth in [place] 00 :00 the Medical morning Branch and 2 tablets at noon and 2 tablets in the evening. Do all this for 2 days. levonorgest Yes [id number] 1{tbl} Take 1 Univers rel-ethinyl 9-14 tablet by ity of estradiol 00:00: [place] (SRONYX[place] 00 the Medical 0.1-20 morning. Branch mg-mcg per tablet levonorgest Yes [id number] 1{tbl} Take 1 Univers rel-ethinyl 9-14 tablet by ity of estradiol 00:00: mouth in [facility] s (SRONYX) 00 the Medical 0.1-20 morning. Branch mg-mcg per tablet levonorgest Yes [id number] 1{tbl} Take 1 Univers rel-ethinyl 9-14 tablet by ity of estradiol 00:00: [place] (SRONYX[place] 00 the Medical 0.1-20 morning. Branch mg-mcg per tablet levonorgest Yes [id number] 1{tbl} Take 1 Univers rel-ethinyl 9-14 tablet by ity of estradiol 00:00: [place] (SRONYX[place] 00 the Medical 0.1-20 morning. Branch mg-mcg per tablet levonorgest Yes [id number] 1{tbl} Take 1 Univers rel-ethinyl 9-14 tablet by ity of estradiol 00:00: [place] (SRONYX[place] 00 the Medical 0.1-20 morning. Branch mg-mcg per tablet levonorgest Yes [id number] 1{tbl} Take 1 Univers rel-ethinyl 9-14 tablet by ity of estradiol 00:00: [place] (SRONYX[place] 00 the Medical 0.1-20 morning. Branch mg-mcg per tablet levonorgest Yes [id number] 1{tbl} Take 1 Univers rel-ethinyl 9-14 tablet by ity of estradiol 00:00: [place] (SRONYX[place] 00 the Medical 0.1-20 morning. Branch mg-mcg per tablet levonorgest 2022-0 Yes [id number] 1{tbl} Take 1 Univers rel-ethinyl 9-14 tablet by ity of estradiol 00:00: [place] (SRONYX[place] 00 the Medical 0.1-20 morning. Branch mg-mcg per tablet levonorgest 2022-0 Yes [id number] 1{tbl} Take 1 Univers rel-ethinyl 9-14 tablet by ity of estradiol 00:00: [place] (SRONYX[place] 00 the Medical 0.1-20 morning. Branch mg-mcg per tablet levonorgest 2022-0 Yes [id number] 1{tbl} Take 1 Univers rel-ethinyl 9-14 tablet by ity of estradiol 00:00: mouth [place] (SRONYX) 00 the Medical 0.1-20 morning. Branch mg-mcg per tablet levonorgest 2022-0 Yes [id number] 1{tbl} Take 1 Univers rel-ethinyl 9-14 tablet by ity of estradiol 00:00: [place] (SRONYX[place] 00 the Medical 0.1-20 morning. Branch mg-mcg per tablet levonorgest 2022-0 Yes [id number] 1{tbl} Take 1 Univers rel-ethinyl 9-14 tablet by ity of estradiol 00:00: [place] (SRONYX[place] 00 the Medical 0.1-20 morning. Branch mg-mcg per tablet levonorgest 2022-0 Yes [id number] 1{tbl} Take 1 Univers rel-ethinyl 9-14 tablet by ity of estradiol 00:00: [place] (SRONYX[place] 00 the Medical 0.1-20 morning. Branch mg-mcg per tablet levonorgest 2022-0 Yes [id number] 1{tbl} Take 1 Univers rel-ethinyl 9-14 tablet by ity of estradiol 00:00: [place] (SRONYX[place] 00 the Medical 0.1-20 morning. Branch mg-mcg per tablet levonorgest 2-0 Yes [id number] 1{tbl} Take 1 Univers rel-ethinyl 9-14 tablet by ity of estradiol 00:00: [place] (SRONYX[place] 00 the Medical 0.1-20 morning. Branch mg-mcg per tablet levonorgest 2022-0 Yes [id number] 1{tbl} Take 1 Univers rel-ethinyl 9-14 tablet by ity of estradiol 00:00: [place] (SRONYX[place] 00 the Medical 0.1-20 morning. Branch mg-mcg per tablet levonorgest 2-0 Yes [id number] 1{tbl} Take 1 Univers rel-ethinyl 9-14 tablet by ity of estradiol 00:00: mouth [place] (SRONYX[place] 00 the Medical 0.1-20 morning. Branch mg-mcg per tablet levonorgest 2-0 Yes [id number] 1{tbl} Take 1 Univers rel-ethinyl 9-14 tablet by ity of estradiol 00:00: mouth [place] (SRONYX[place] 00 the Medical 0.1-20 morning. Branch mg-mcg per tablet levonorgest 2-0 Yes [id number] 1{tbl} Take 1 Univers rel-ethinyl 9-14 tablet by ity of estradiol 00:00: mouth [place] (SRONYX) 00 the Medical 0.1-20 morning. Branch mg-mcg per tablet levonorgest 2-0 Yes [id number] 1{tbl} Take 1 Univers rel-ethinyl 9-14 tablet by ity of estradiol 00:00: mouth [place] (SRONYX) 00 the Medical 0.1-20 morning. Branch mg-mcg per tablet levonorgest 2022-0 Yes [id number] 1{tbl} Take 1 Univers rel-ethinyl 9-14 tablet by ity of estradiol 00:00: [place] (SRONYX[place] 00 the Medical 0.1-20 morning. Branch mg-mcg per tablet levonorgest 2022-0 Yes [id number] 1{tbl} Take 1 Univers rel-ethinyl 9-14 tablet by ity of estradiol 00:00: [place] (SRONYX[place] 00 the Medical 0.1-20 morning. Branch mg-mcg per tablet levonorgest 2021-2022- No [id number] 1{tbl} Take 1 Univers rel-ethinyl 9-14 07-11 tablet by it y of estradiol 00:00: 00:00 mouth in [place] (SRONYX) 00 :00 the Medical 0.1-20 morning. Branch mg-mcg per tablet levonorgest 2021-0 2022- No [id number] 1{tbl} Take 1 Univers rel-ethinyl 9-14 07-11 tablet by it y of estradiol 00:00: 00:00 mouth in [place] (SRONYX) 00 :00 the Medical 0.1-20 morning. Branch mg-mcg per tablet ondansetron 2021-0 Yes [id number] 4mg Take 1 Univers 4 mg 4-11 tablet by ity of disintegrat 00:00: mouth [place] ing tablet 00 every 8 Medica l (eight) Branch hours as needed for Nausea and Vomiting (N/V). ondansetron 2021-0 Yes [id number] 4mg Take 1 Univers 4 mg 4-11 tablet by ity of disintegrat 00:00: mouth [place] ing tablet 00 every 8 Medica l (eight) Branch hours as needed for Nausea and Vomiting (N/V). ondansetron 2021-0 Yes [id number] 4mg Take 1 Univers 4 mg 4-11 tablet by ity of disintegrat 00:00: mouth [place] ing tablet 00 every 8 Medica l (eight) Branch hours as needed for Nausea and Vomiting (N/V). ondansetron 2021-0 Yes [id number] 4mg Take 1 Univers 4 mg 4-11 tablet by ity of disintegrat 00:00: mouth [place] ing tablet 00 every 8 Medica l (eight) Branch hours as needed for Nausea and Vomiting (N/V). ondansetron 2021-0 Yes [id number] 4mg Take 1 Univers 4 mg 4-11 tablet by ity of disintegrat 00:00: mouth [place] ing tablet 00 every 8 Medica l (eight) Branch hours as needed for Nausea and Vomiting (N/V). ondansetron 2021-0 Yes [id number] 4mg Take 1 Univers 4 mg 4-11 tablet by ity of disintegrat 00:00: mouth [place] ing tablet 00 every 8 Medica l (eight) Branch hours as needed for Nausea and Vomiting (N/V). ondansetron 2021-0 Yes [id number] 4mg Take 1 Univers 4 mg 4-11 tablet by ity of disintegrat 00:00: mouth [place] ing tablet 00 every 8 Medica l (eight) Branch hours as needed for Nausea and Vomiting (N/V). ondansetron 2021-0 Yes [id number] 4mg Take 1 Univers 4 mg 4-11 tablet by ity of disintegrat 00:00: mouth [place] ing tablet 00 every 8 Medica l (eight) Branch hours as needed for Nausea and Vomiting (N/V). ondansetron 2021-0 Yes [id number] 4mg Take 1 Univers 4 mg 4-11 tablet by ity of disintegrat 00:00: mouth [place] ing tablet 00 every 8 Medica l (eight) Branch hours as needed for Nausea and Vomiting (N/V). ondansetron 2021-0 Yes [id number] 4mg Take 1 Univers 4 mg 4-11 tablet by ity of disintegrat 00:00: mouth [place] ing tablet 00 every 8 Medica l (eight) Branch hours as needed for Nausea and Vomiting (N/V). ondansetron 2021-0 Yes [id number] 4mg Take 1 Univers 4 mg 4-11 tablet by ity of disintegrat 00:00: mouth [place] ing tablet 00 every 8 Medica l (eight) Branch hours as needed for Nausea and Vomiting (N/V). ondansetron 2021-0 Yes [id number] 4mg Take 1 Univers 4 mg 4-11 tablet by ity of disintegrat 00:00: mouth [place] ing tablet 00 every 8 Medica l (eight) Branch hours as needed for Nausea and Vomiting (N/V). ondansetron 2-0 Yes [id number] 4mg Take 1 Univers 4 mg 4-11 tablet by ity of disintegrat 00:00: mouth [place] ing tablet 00 every 8 Medica l (eight) Branch hours as needed for Nausea and Vomiting (N/V). ondansetron 2-0 Yes [id number] 4mg Take 1 Univers 4 mg 4-11 tablet by ity of disintegrat 00:00: mouth [place] ing tablet 00 every 8 Medica l (eight) Branch hours as needed for Nausea and Vomiting (N/V). ondansetron 2-0 Yes [id number] 4mg Take 1 Univers 4 mg 4-11 tablet by ity of disintegrat 00:00: mouth [place] ing tablet 00 every 8 Medica l (eight) Branch hours as needed for Nausea and Vomiting (N/V). ondansetron 2021-0 Yes [id number] 4mg Take 1 Univers 4 mg 4-11 tablet by ity of disintegrat 00:00: mouth [place] ing tablet 00 every 8 Medica l (eight) Branch hours as needed for Nausea and Vomiting (N/V). ondansetron 2021-0 Yes [id number] 4mg Take 1 Univers 4 mg 4-11 tablet by ity of disintegrat 00:00: mouth [place] ing tablet 00 every 8 Medica l (eight) Branch hours as needed for Nausea and Vomiting (N/V). ondansetron 2021-0 Yes [id number] 4mg Take 1 Univers 4 mg 4-11 tablet by ity of disintegrat 00:00: mouth [place] ing tablet 00 every 8 Medica l (eight) Branch hours as needed for Nausea and Vomiting (N/V). ondansetron 2021-0 Yes [id number] 4mg Take 1 Univers 4 mg 4-11 tablet by ity of disintegrat 00:00: mouth [place] ing tablet 00 every 8 Medica l (eight) Branch hours as needed for Nausea and Vomiting (N/V). ondansetron 2-0 Yes [id number] 4mg Take 1 Univers 4 mg 4-11 tablet by ity of disintegrat 00:00: mouth [place] ing tablet 00 every 8 Medica l (eight) Branch hours as needed for Nausea and Vomiting (N/V). ondansetron 2-0 Yes [id number] 4mg Take 1 Univers 4 mg 4-11 tablet by ity of disintegrat 00:00: mouth [place] ing tablet 00 every 8 Medica l (eight) Branch hours as needed for Nausea and Vomiting (N/V). ondansetron 2-0 Yes [id number] 4mg Take 1 Univers 4 mg 4-11 tablet by ity of disintegrat 00:00: mouth [place] ing tablet 00 every 8 Medica l (eight) Branch hours as needed for Nausea and Vomiting (N/V). ondansetron 2022- No [id number] 4mg Take 1 Univers 4 mg 4-11 07-11 tablet by ity of disintegrat 00:00: 00:00 mouth [place] tablet 00 :00 every 8 Medica l (eight) Branch hours as needed for Nausea and Vomiting (N/V). ondansetron 2022- No [id number] 4mg Take 1 Univers 4 mg 4-11 07-11 tablet by ity of disintegrat 00:00: 00:00 mouth [place] tablet 00 :00 every 8 Medica l (eight) Branch hours as needed for Nausea and Vomiting (N/V). norethindro Yes [id number] 1{tbl} Take 1 Univers ne 0.35 mg 3-30 tablet by ity of tablet 00:00: mouth [place] 00 daily. Medical Branch norethindro Yes [id number] 1{tbl} Take 1 Univers ne 0.35 mg 3-30 tablet by ity of tablet 00:00: mouth [place] 00 daily. Medical Branch norethindro Yes [id number] 1{tbl} Take 1 Univers ne 0.35 mg 3-30 tablet by ity of tablet 00:00: mouth [place] 00 daily. Medical Branch norethindro Yes [id number] 1{tbl} Take 1 Univers ne 0.35 mg 3-30 tablet by ity of tablet 00:00: mouth [place] 00 daily. Medical Branch norethindro Yes [id number] 1{tbl} Take 1 [facility] ne 0.35 mg 3-30 tablet by ity of tablet 00:00: mouth [place] 00 daily. [facility] norethindro Yes [id number] 1{tbl} Take 1 [facility] ne 0.35 mg 3-30 tablet by ity of tablet 00:00: mouth [place] 00 daily. [facility] n[facility]thindro Yes [id number] 1{tbl} Take 1 [facility] ne 0.35 mg 3-30 tablet by ity of tablet 00:00: mouth [place] 00 daily. [facility] n[facility]indro Yes [id number] 1{tbl} Take 1 [facility] ne 0.35 mg 3-30 tablet by ity of tablet 00:00: mouth [place] 00 daily. [facility] n[facility] Yes [id number] 1{tbl} Take 1 [facility] ne 0.35 mg 3-30 tablet by ity of tablet 00:00: mouth [place] 00 daily. [facility] n[place] Yes [id number] 1{tbl} Take 1 [facility] ne 0.35 mg 3-30 tablet by ity of tablet 00:00: mouth [place] 00 daily. [facility] n[place] Yes [id number] 1{tbl} Take 1 [facility] ne 0.35 mg 3-30 tablet by ity of tablet 00:00: mouth [place] 00 daily. [facility] n[place] Yes [id number] 1{tbl} Take 1 [facility] ne 0.35 mg 3-30 tablet by ity of tablet 00:00: mouth [place] 00 daily. [facility] n[facility] Yes [id number] 1{tbl} Take 1 [facility] ne 0.35 mg 3-30 tablet by ity of tablet 00:00: mouth [place] 00 daily. [facility] n[facility] Yes [id number] 1{tbl} Take 1 [facility] ne 0.35 mg 3-30 tablet by ity of tablet 00:00: mouth [place] 00 daily. [facility] n[place] Yes [id number] 1{tbl} Take 1 [facility] ne 0.35 mg 3-30 tablet by ity of tablet 00:00: mouth [place] 00 daily. [facility] Yes [id number] 1{tbl} Take 1 [facility] ne 0.35 mg 3-30 tablet by ity of tablet 00:00: mouth [place] 00 daily. [facility] Yes [id number] 1{tbl} Take 1 [facility] ne 0.35 mg 3-30 tablet by ity of tablet 00:00: mouth [place] 00 daily. [facility] n[place] Yes [id number] 1{tbl} Take 1 [facility] ne 0.35 mg 3-30 tablet by ity of tablet 00:00: mouth [place] 00 daily. [facility] n[place] Yes [id number] 1{tbl} Take 1 [facility] ne 0.35 mg 3-30 tablet by ity of tablet 00:00: mouth [place] 00 daily. [facility] Yes [id number] 1{tbl} Take 1 [facility] ne 0.35 mg 3-30 tablet by ity of tablet 00:00: mouth [place] 00 daily. [facility] Yes [id number] 1{tbl} Take 1 [facility] ne 0.35 mg 3-30 tablet by ity of tablet 00:00: mouth [place] 00 daily. [facility] Yes [id number] 1{tbl} Take 1 [facility] ne 0.35 mg 3-30 tablet by ity of tablet 00:00: mouth [place] 00 daily. [facility] 2022- No [id number] 1{tbl} Take 1 [facility] ne 0.35 mg 3-30 07-11 tablet by ity of tablet 00:00: 00:00 mouth [place] 00 :00 daily. [facility] 2022- No [id number] 1{tbl} Take 1 [facility] ne 0.35 mg 3-30 07-11 tablet by ity of tablet 00:00: 00:00 mouth [place] 00 :00 daily. [facility] Immunizations Ordered Immunization Filled Date Status Comments Sour ce Name Immunization Name [facility] 2021-05-17 Completed [facility] of 00:00:00 [facility] 2021-05-17 Completed [facility] of 00:00:00 [facility] 2021-05-17 Completed University of 00:00:00 [facility] HPV9 2021-05-17 Completed University of 00:00:00 [facility] HPV9 2021-05-17 Completed University of 00:00:00 [facility] HPV9 2021-05-17 Completed [facility] of 00:00:00 [facility] 2021-05-17 Completed [facility] of 00:00:00 [facility] 2021-05-17 Completed [facility] of 00:00:00 [facility] HPV9 2021-05-17 Completed [facility] of 00:00:00 [facility] 2021-05-17 Completed [facility] of 00:00:00 [facility] 2021-05-17 Completed [facility] of 00:00:00 [facility] 2021-05-17 Completed [facility] of 00:00:00 [facility] HPV9 2021-05-17 Completed [facility] of 00:00:00 [facility] HPV9 2021-05-17 Completed [facility] of 00:00:00 [facility] HPV9 2021-05-17 Completed [facility] of 00:00:00 [facility] HPV9 2021-05-17 Completed [facility] of 00:00:00 [facility] HPV9 2021-05-17 Completed [facility] of 00:00:00 [facility] HPV9 2021-05-17 Completed [facility] of 00:00:00 [place] [facility] HPV9 2021-05-17 Completed [facility] of 00:00:00 [facility] HPV9 2021-05-17 Completed [facility] of 00:00:00 [place] [facility] HPV9 2021-05-17 Completed [facility] of 00:00:00 [facility] HPV9 2021-05-17 Completed [facility] of 00:00:00 [facility] HPV9 2021-05-17 Completed [facility] of 00:00:00 [facility] HPV9 2021-05-17 Completed [facility] of 00:00:00 [facility] HPV9 2021-05-17 Completed [facility] of 00:00:00 [facility] HPV9 2021-05-17 Completed [facility] of 00:00:00 [facility] HPV9 2021-05-17 Completed University of 00:00:00 [facility] TDAP 2021-02-22 Completed University of 00:00:00 [facility] TDAP 2021-02-22 Completed [facility] of 00:00:00 [facility] TDAP 2021-02-22 Completed [facility] of 00:00:00 [facility] TDAP 2021-02-22 Completed [facility] of 00:00:00 [facility] TDAP 2021-02-22 Completed [facility] of 00:00:00 [facility] TDAP 2021-02-22 Completed [facility] of 00:00:00 [place] [facility] TDAP 2021-02-22 Completed [facility] of 00:00:00 [facility] TDAP 2021-02-22 Completed [facility] of 00:00:00 [facility] TDAP 2021-02-22 Completed [facility] of 00:00:00 [facility] TDAP 2021-02-22 Completed [facility] of 00:00:00 [facility] TDAP 2021-02-22 Completed [facility] of 00:00:00 [facility] TDAP 2021-02-22 Completed University of 00:00:00 [facility] TDAP 2021-02-22 Completed University of 00:00:00 [facility] TDAP 2021-02-22 Completed University of 00:00:00 [facility] TDAP 2021-02-22 Completed University of 00:00:00 [facility] TDAP 2021-02-22 Completed University of 00:00:00 [facility] TDAP 2021-02-22 Completed University of 00:00:00 [facility] TDAP 2021-02-22 Completed University of 00:00:00 [facility] TDAP 2021-02-22 Completed University of 00:00:00 [facility] TDAP 2021-02-22 Completed University of 00:00:00 [facility] TDAP 2021-02-22 Completed University of 00:00:00 [facility] TDAP 2021-02-22 Completed University of 00:00:00 [facility] TDAP 2021-02-22 Completed University of 00:00:00 [facility] TDAP 2021-02-22 Completed University of 00:00:00 [facility] TDAP 2021-02-22 Completed University of 00:00:00 [facility] TDAP 2021-02-22 Completed University of 00:00:00 [facility] TDAP 2021-02-22 Completed University of 00:00:00 [facility] SARS-COV-2 COVID-19 2020-07-26 Completed Unive rsity of MAURICIO/J&J VACCINE 00:00:00 [facility] SARS-COV-2 COVID-19 2020-07-26 Completed Unive rsity of MAURICIO/J&J VACCINE 00:00:00 [facility] SARS-COV-2 COVID-19 2020-07-26 Completed Unive rsity of MAURICIO/J&J VACCINE 00:00:00 [facility] SARS-COV-2 COVID-19 2020-07-26 Completed Unive rsity of MAURICIO/J&J VACCINE 00:00:00 [facility] SARS-COV-2 COVID-19 2020-07-26 Completed Unive rsity of MAURICIO/J&J VACCINE 00:00:00 [facility] SARS-COV-2 COVID-19 2020-07-26 Completed Unive rsity of MAURICIO/J&J VACCINE 00:00:00 [facility] SARS-COV-2 COVID-19 2020-07-26 Completed Unive rsity of MAURICIO/J&J VACCINE 00:00:00 [facility] SARS-COV-2 COVID-19 2020-07-26 Completed Unive rsity of MAURICIO/J&J VACCINE 00:00:00 [facility] SARS-COV-2 COVID-19 2020-07-26 Completed Unive rsity of MAURICIO/J&J VACCINE 00:00:00 [facility] SARS-COV-2 COVID-19 2020-07-26 Completed Unive rsity of MAURICIO/J&J VACCINE 00:00:00 [facility] SARS-COV-2 COVID-19 2020-07-26 Completed Unive rsity of MAURICIO/J&J VACCINE 00:00:00 [facility] SARS-COV-2 COVID-19 2020-07-26 Completed Unive rsity of MAURICIO/J&J VACCINE 00:00:00 [facility] SARS-COV-2 COVID-19 2020-07-26 Completed Unive rsity of MAURICIO/J&J VACCINE 00:00:00 [facility] SARS-COV-2 COVID-19 2020-07-26 Completed Unive rsity of MAURICIO/J&J VACCINE 00:00:00 [facility] SARS-COV-2 COVID-19 2020-07-26 Completed Unive rsity of MAURICIO/J&J VACCINE 00:00:00 [facility] SARS-COV-2 COVID-19 2020-07-26 Completed Unive rsity of MAURICIO/J&J VACCINE 00:00:00 [facility] SARS-COV-2 COVID-19 2020-07-26 Completed Unive rsity of MAURICIO/J&J VACCINE 00:00:00 [facility] SARS-COV-2 COVID-19 2020-07-26 Completed Unive rsity of MAURICIO/J&J VACCINE 00:00:00 [facility] SARS-COV-2 COVID-19 2020-07-26 Completed Unive rsity of MAURICIO/J&J VACCINE 00:00:00 [facility] SARS-COV-2 COVID-19 2020-07-26 Completed Unive rsity of MAURICIO/J&J VACCINE 00:00:00 [facility] SARS-COV-2 COVID-19 2020-07-26 Completed Unive rsity of MAURICIO/J&J VACCINE 00:00:00 [facility] SARS-COV-2 COVID-19 2020-07-26 Completed Unive rsity of MAURICIO/J&J VACCINE 00:00:00 [facility] SARS-COV-2 COVID-19 2020-07-26 Completed Unive rsity of MAURICIO/J&J VACCINE 00:00:00 [facility] SARS-COV-2 COVID-19 2020-07-26 Completed Unive rsity of MAURICIO/J&J VACCINE 00:00:00 [facility] SARS-COV-2 COVID-19 2020-07-26 Completed Unive rsity of MAURICIO/J&J VACCINE 00:00:00 [facility] SARS-COV-2 COVID-19 2020-07-26 Completed Unive rsity of MAURICIO/J&J VACCINE 00:00:00 [facility] SARS-COV-2 COVID-19 2020-07-26 Completed Unive rsity of MAURICIO/J&J VACCINE 00:00:00 [facility] HPV 2013-11-11 Completed University of 00:00:00 [facility] HPV 2013-11-11 Completed University of 00:00:00 [facility] HPV 2013-11-11 Completed University of 00:00:00 [facility] HPV 2013-11-11 Completed University of 00:00:00 [facility] HPV 2013-11-11 Completed University of 00:00:00 [facility] HPV 2013-11-11 Completed University of 00:00:00 [facility] HPV 2013-11-11 Completed University of 00:00:00 [facility] HPV 2013-11-11 Completed University of 00:00:00 [facility] HPV 2013-11-11 Completed University of 00:00:00 [facility] HPV 2013-11-11 Completed University of 00:00:00 [facility] HPV 2013-11-11 Completed University of 00:00:00 [facility] HPV 2013-11-11 Completed University of 00:00:00 [facility] HPV 2013-11-11 Completed University of 00:00:00 [facility] HPV 2013-11-11 Completed University of 00:00:00 [facility] HPV 2013-11-11 Completed University of 00:00:00 [...] Branch HPV 2013-05-10 Completed University of 00:00:00 [facility] HPV 2013-05-10 Completed University of 00:00:00 [facility] HPV 2013-05-10 Completed University of 00:00:00 [place] [facility] HPV 2013-05-10 Completed University of 00:00:00 [place] [facility] HPV 2013-05-10 Completed University of 00:00:00 [place] [facility] HPV 2013-05-10 Completed [facility] of 00:00:00 [place] [facility] HPV 2013-05-10 Completed University of 00:00:00 [facility] HPV 2013-05-10 Completed University of 00:00:00 [facility] Meningococcal 2012-10-16 Completed University of Polysaccharide 00:00:00 [place] [facility] (groups A, C, Y and Branc h W-135) conjugate vaccine (MCV4P) Meningococcal 2012-10-16 Completed University of Polysaccharide 00:00:00 [place] [facility] (groups A, C, Y and Branc h W-135) conjugate vaccine (MCV4P) Meningococcal 2012-10-16 Completed University of Polysaccharide 00:00:00 [place] [facility] (groups A, C, Y and Branc h W-135) conjugate vaccine (MCV4P) Meningococcal 2012-10-16 Completed University of Polysaccharide 00:00:00 [place] [facility] (groups A, C, Y and Branc h W-135) conjugate vaccine (MCV4P) Meningococcal 2012-10-16 Completed University of Polysaccharide 00:00:00 [place] [facility] (groups A, C, Y and Branc h W-135) conjugate vaccine (MCV4P) Td 2010-10-28 Completed University of 00:00:00 [facility] Td 2010-10-28 Completed University of 00:00:00 [facility] Td 2010-10-28 Completed University of 00:00:00 [facility] Td 2010-10-28 Completed University of 00:00:00 [facility] Td 2010-10-28 Completed University of 00:00:00 [facility] Td 2010-10-28 Completed University of 00:00:00 [facility] Td 2010-10-28 Completed University of 00:00:00 [facility] Td 2010-10-28 Completed University of 00:00:00 [facility] Td 2010-10-28 Completed University of 00:00:00 [facility] Td 2010-10-28 Completed University of 00:00:00 [facility] Td 2010-10-28 Completed University of 00:00:00 [facility] Td 2010-10-28 Completed University of 00:00:00 [facility] TD, NOS 2010-10-28 Completed University of 00:00:00 [facility] TD, NOS 2010-10-28 Completed University of 00:00:00 [facility] TD, NOS 2010-10-28 Completed University of 00:00:00 [facility] TD, NOS 2010-10-28 Completed University of 00:00:00 [facility] TD, NOS 2010-10-28 Completed University of 00:00:00 [facility] TD, NOS 2010-10-28 Completed University of 00:00:00 [facility] TD, NOS 2010-10-28 Completed University of 00:00:00 [facility] TD, NOS 2010-10-28 Completed University of 00:00:00 [facility] TD, NOS 2010-10-28 Completed University of 00:00:00 [facility] TD, NOS 2010-10-28 Completed University of 00:00:00 [facility] TD, NOS 2010-10-28 Completed University of 00:00:00 [facility] TD, NOS 2010-10-28 Completed University of 00:00:00 [facility] TD, NOS 2010-10-28 Completed University of 00:00:00 [facility] TD, NOS 2010-10-28 Completed University of 00:00:00 [facility] TD, NOS 2010-10-28 Completed University of 00:00:00 [facility] HEPATITIS A 2009-09-16 Completed University of 00:00:00 [facility] HEPATITIS A 2009-09-16 Completed University of 00:00:00 [facility] HEPATITIS A 2009-09-16 Completed University of 00:00:00 [facility] HEPATITIS A 2009-09-16 Completed University of 00:00:00 [facility] HEPATITIS A 2009-09-16 Completed University of 00:00:00 [facility] HEPATITIS A 2008-07-28 Completed University of 00:00:00 [facility] Meningococcal 2008-07-28 Completed University of Polysaccharide 00:00:00 [facility] curtis (groups A, C, Y and Branc h W-135) conjugate vaccine (MCV4P) MMR 2008-07-28 Completed University of 00:00:00 [facility] TDAP 2008-07-28 Completed University of 00:00:00 [facility] HEPATITIS A 2008-07-28 Completed University of 00:00:00 [facility] Meningococcal 2008-07-28 Completed University of Polysaccharide 00:00:00 [place] [facility] (groups A, C, Y and Branc h W-135) conjugate vaccine (MCV4P) MMR 2008-07-28 Completed University of 00:00:00 [facility] TDAP 2008-07-28 Completed University of 00:00:00 [facility] HEPATITIS A 2008-07-28 Completed University of 00:00:00 [facility] Meningococcal 2008-07-28 Completed University of Polysaccharide 00:00:00 [place] [facility] (groups A, C, Y and Branc h W-135) conjugate vaccine (MCV4P) MMR 2008-07-28 Completed University of 00:00:00 [facility] TDAP 2008-07-28 Completed University of 00:00:00 [facility] HEPATITIS A 2008-07-28 Completed University of 00:00:00 [facility] Meningococcal 2008-07-28 Completed University of Polysaccharide 00:00:00 [place] [facility] (groups A, C, Y and Branc h W-135) conjugate vaccine (MCV4P) MMR 2008-07-28 Completed University of 00:00:00 [facility] TDAP 2008-07-28 Completed University of 00:00:00 [facility] HEPATITIS A 2008-07-28 Completed University of 00:00:00 [facility] Meningococcal 2008-07-28 Completed University of Polysaccharide 00:00:00 [place] [facility] (groups A, C, Y and Branc h W-135) conjugate vaccine (MCV4P) MMR 2008-07-28 Completed University of 00:00:00 [facility] TDAP 2008-07-28 Completed University of 00:00:00 [facility] DTaP, Unspecified 2002-04-01 Completed Univers ity of Formulation 00:00:00 [facility] MMR 2002-04-01 Completed University of 00:00:00 [facility] IPV 2002-04-01 Completed University of 00:00:00 [facility] DTaP, Unspecified 2002-04-01 Completed Univers ity of Formulation 00:00:00 [facility] MMR 2002-04-01 Completed University of 00:00:00 [facility] IPV 2002-04-01 Completed [facility] of 00:00:00 [place] [facility] DTaP, Unspecified 2002-04-01 Completed Univers ity of Formulation 00:00:00 [facility] MMR 2002-04-01 Completed University of 00:00:00 [facility] IPV 2002-04-01 Completed University of 00:00:00 [facility] DTaP, Unspecified 2002-04-01 Completed Univers ity of Formulation 00:00:00 [facility] MMR 2002-04-01 Completed University of 00:00:00 [facility] IPV 2002-04-01 Completed University of 00:00:00 [facility] DTaP, Unspecified 2002-04-01 Completed Univers ity of Formulation 00:00:00 [facility] MMR 2002-04-01 Completed University of 00:00:00 [facility] IPV 2002-04-01 Completed University of 00:00:00 [facility] DPT/HIB 1996 Completed University of 00:00:00 [facility] Hep B, Unspecified 1996 Completed Univer sity of Formulation 00:00:00 [facility] Poliovirus, Live, 1996 Completed Univers ity of Oral, Trivalent 00:00:00 [facility] DPT/HIB 1996 Completed University of 00:00:00 [facility] Hep B, Unspecified 1996 Completed Univer sity of Formulation 00:00:00 [facility] Poliovirus, Live, 1996 Completed Univers ity of Oral, Trivalent 00:00:00 [facility] DPT/HIB 1996 Completed University of 00:00:00 [facility] Hep B, Unspecified 1996 Completed Univer sity of Formulation 00:00:00 [facility] Poliovirus, Live, 1996 Completed Univers ity of Oral, Trivalent 00:00:00 [facility] DPT/HIB 1996 Completed University of 00:00:00 [facility] Hep B, Unspecified 1996 Completed Univer sity of Formulation 00:00:00 [facility] Poliovirus, Live, 1996 Completed Univers ity of Oral, Trivalent 00:00:00 [facility] DPT/HIB 1996 Completed University of 00:00:00 [facility] Hep B, Unspecified 1996 Completed Univer sity of Formulation 00:00:00 [facility] Poliovirus, Live, 1996 Completed Univers ity of Oral, Trivalent 00:00:00 [facility] Hep B, Unspecified 1996 Completed Univer sity of Formulation 00:00:00 [facility] Hep B, Unspecified 1996 Completed Univer sity of Formulation 00:00:00 [facility] Hep B, Unspecified 1996 Completed Univer sity of Formulation 00:00:00 [facility] Hep B, Unspecified 1996 Completed Univer sity of Formulation 00:00:00 [facility] Hep B, Unspecified 1996 Completed Univer sity of Formulation 00:00:00 [facility] Poliovirus, Live, Unknown Completed Univers ity of Oral, Trivalent [facility] TDAP Unknown Completed [facility] TD, NOS Unknown Completed [facility] HPV Unknown Completed [facility] SARS-COV-2 COVID-19 Unknown Completed Unive rsity of [facility]ICIO/J&J VACCINE [facility] HPV Unknown Completed [facility] HPV Unknown Completed [facility] DTaP, Unspecified Unknown Completed Univers ity of Formulation [facility] DPT/HIB Unknown Completed [facility] HEPATITIS A Unknown Completed [facility] HEPATITIS A Unknown Completed [facility] Hep B, Unspecified Unknown Completed Univer sity of Formulation [facility] Hep B, Unspecified Unknown Completed Univer sity of Formulation [facility] Meningococcal Unknown Completed [facility] (groups A, C, Y and Branc h W-135) conjugate vaccine (MCV4P) Meningococcal Unknown Completed [facility] curtis (groups A, C, Y and Branc h W-135) conjugate vaccine (MCV4P) MMR Unknown Completed [facility] MMR Unknown Completed [facility] IPV Unknown Completed [facility] Poliovirus, Live, Unknown Completed Univers ity of Oral, Trivalent [facility] TDAP Unknown Completed [facility] TD, NOS Unknown Completed [facility] HPV Unknown Completed [facility] SARS-COV-2 COVID-19 Unknown Completed Unive rsity of MAURICIO/J&J VACCINE [facility] TDAP Unknown Completed [facility] HPV Unknown Completed [facility] HPV Unknown Completed [facility] HPV9 Unknown Completed [facility] DTaP, Unspecified Unknown Completed Univers ity of [facility] DPT/HIB Unknown Completed [facility] HEPATITIS A Unknown Completed [facility] HEPATITIS A Unknown Completed [facility] Hep B, Unspecified Unknown Completed Univer sity of [facility] Hep B, Unspecified Unknown Completed Univer sity of Formulation [facility] Meningococcal Unknown Completed [facility] Polysaccharide [place] [facility] (groups A, C, Y and Branc h W-135) conjugate vaccine (MCV4P) Meningococcal Unknown Completed [facility] (groups A, C, Y and Branc h W-135) conjugate vaccine (MCV4P) MMR Unknown Completed [facility] MMR Unknown Completed [facility] IPV Unknown Completed [facility] Poliovirus, Live, Unknown Completed Univers ity of Oral, Trivalent [facility] TDAP Unknown Completed [facility] TD, NOS Unknown Completed [facility] HPV Unknown Completed [facility] SARS-COV-2 COVID-19 Unknown Completed Unive rsity of MAURICIO/J&J VACCINE [facility] TDAP Unknown Completed [facility] HPV Unknown Completed [facility] HPV Unknown Completed [facility] HPV9 Unknown Completed [facility] DTaP, Unspecified Unknown Completed Univers ity of [facility] DPT/HIB Unknown Completed [facility] HEPATITIS A Unknown Completed [facility] HEPATITIS A Unknown Completed [facility] Hep B, Unspecified Unknown Completed [facility] Hep B, Unspecified Unknown Completed [facility] Meningococcal Unknown Completed [facility] curtis (groups A, C, Y and Branc h W-135) conjugate vaccine (MCV4P) Meningococcal Unknown Completed [facility] Polysaccharide [place] [facility] (groups A, C, Y and Branc h W-135) conjugate vaccine (MCV4P) MMR Unknown Completed [facility] MMR Unknown Completed [facility] IPV Unknown Completed [facility] Poliovirus, Live, Unknown Completed Univers ity of Oral, Trivalent [facility] TDAP Unknown Completed [facility] TD, NOS Unknown Completed [facility] HPV Unknown Completed [facility] SARS-COV-2 COVID-19 Unknown Completed Unive rsity of MAURICIO/J&J VACCINE [facility] TDAP Unknown Completed [facility] HPV Unknown Completed [facility] HPV Unknown Completed [facility] HPV9 Unknown Completed [facility] DTaP, Unspecified Unknown Completed [facility] DPT/HIB Unknown Completed [facility] HEPATITIS A Unknown Completed [facility] HEPATITIS A Unknown Completed [facility] Hep B, Unspecified Unknown Completed Univer sity [facility] Hep B, Unspecified Unknown Completed Univer sity [facility] Meningococcal Unknown Completed [facility] Medi curtis (groups A, C, Y and Branc h W-135) conjugate vaccine (MCV4P) Meningococcal Unknown Completed [facility] Medi curtis (groups A, C, Y and Branc h W-135) conjugate vaccine (MCV4P) MMR Unknown Completed [facility] MMR Unknown Completed [facility] IPV Unknown Completed [facility] Poliovirus, Live, Unknown Completed Univers ity of Oral, Trivalent [facility] TDAP Unknown Completed [facility] TD, NOS Unknown Completed [facility] HPV Unknown Completed [facility] SARS-COV-2 COVID-19 Unknown Completed Unive rsity of MAURICIO/J&J VACCINE [facility] TDAP Unknown Completed [facility] HPV Unknown Completed [facility] HPV Unknown Completed [facility] DTaP, Unspecified Unknown Completed [facility] DPT/HIB Unknown Completed [facility] HEPATITIS A Unknown Completed [facility] HEPATITIS A Unknown Completed [facility] Hep B, Unspecified Unknown Completed Univer sity [facility] Hep B, Unspecified Unknown Completed [facility] Meningococcal Unknown Completed [facility] Medi curtis (groups A, C, Y and Branc h W-135) conjugate vaccine (MCV4P) Meningococcal Unknown Completed [facility] Medi curtis (groups A, C, Y and Branc h W-135) conjugate vaccine (MCV4P) MMR Unknown Completed [facility] MMR Unknown Completed [facility] IPV Unknown Completed [facility] Vital Signs Vital Name Observation Time Observation Value Comments Source Systolic blood 2022-12-03 118 mm[Hg] University of pressure 00:15:00 [facility] Diastolic blood 2022-12-03 79 mm[Hg] University o f pressure 00:15:00 [facility] Heart rate 2022-12-03 99 /min University of 00:15:00 [facility] Body temperature 2022-12-03 37.44 Emmanuelle University of 00:15:00 [facility] Respiratory rate 2022-12-03 15 /min University of 00:15:00 [facility] Body height 2022-12-03 165.1 cm University of 00:15:00 [facility] Body weight 2022-12-03 138.256 kg University of 00:15:00 [facility] BMI 2022-12-03 50.72 kg/m2 University of 00:15:00 [facility] Oxygen saturation 2022-12-03 98 /min [facility] in Arterial blood 00:15:00 [facility] Pulse oximetry [place] Systolic blood 2022-10-02 136 mm[Hg] University of pressure 18:30:00 [facility] Diastolic blood 2022-10-02 75 mm[Hg] University o f pressure 18:30:00 [facility] Heart rate 2022-10-02 80 /min University of 18:30:00 [facility] Body temperature 2022-10-02 36.83 Emmanuelle University of 18:30:00 [facility] Respiratory rate 2022-10-02 18 /min University of 18:30:00 [facility] Body height 2022-10-02 162.6 cm University of 18:30:00 [facility] Body weight 2022-10-02 132.904 kg University of 18:30:00 [facility] BMI 2022-10-02 50.29 kg/m2 University of 18:30:00 [facility] Systolic blood 2022-04-30 133 mm[Hg] University of pressure 16:31:00 [facility] Diastolic blood 2022-04-30 84 mm[Hg] University o f pressure 16:31:00 [facility] Heart rate 2022-04-30 76 /min University of 16:31:00 [facility] Body temperature 2022-04-30 35.83 Emmanuelle University of 16:31:00 [facility] Respiratory rate 2022-04-30 18 /min University of 16:31:00 [facility] Body height 2022-04-30 162.6 cm University of 16:31:00 [facility] Body weight 2022-04-30 131.815 kg University of 16:31:00 [facility] BMI 2022-04-30 49.88 kg/m2 University of 16:31:00 [facility] Systolic blood 2022-04-19 119 mm[Hg] University of pressure 15:39:00 [facility] Diastolic blood 2022-04-19 76 mm[Hg] University o f pressure 15:39:00 [facility] Heart rate 2022-04-19 81 /min University of 15:39:00 [facility] Body temperature 2022-04-19 36.61 Emmanuelle University of 15:39:00 [facility] Respiratory rate 2022-04-19 18 /min University of 15:39:00 [facility] Body height 2022-04-19 162.6 cm University of 15:39:00 [facility] Body weight 2022-04-19 131.044 kg University of 15:39:00 [facility] BMI 2022-04-19 49.59 kg/m2 University of 15:39:00 [facility] Systolic blood 2022-03-03 125 mm[Hg] University of pressure 15:17:00 [facility] Diastolic blood 2022-03-03 87 mm[Hg] University o f pressure 15:17:00 [facility] Heart rate 2022-03-03 74 /min University of 15:17:00 [facility] Body temperature 2022-03-03 36.83 Emmanuelle University of 15:17:00 [facility] Respiratory rate 2022-03-03 18 /min University of 15:17:00 [facility] Body height 2022-03-03 162.6 cm University of 15:17:00 [facility] Body weight 2022-03-03 113.399 kg University of 15:17:00 [facility] BMI 2022-03-03 42.91 kg/m2 University of 15:17:00 [facility] Oxygen saturation 2022-03-03 99 /min [facility] in Arterial blood 15:17:00 [facility] Pulse oximetry [place] Systolic blood 2022-02-14 138 mm[Hg] University of pressure 20:28:00 [facility] Diastolic blood 2022-02-14 85 mm[Hg] University o f pressure 20:28:00 [facility] Heart rate 2022-02-14 66 /min University of 20:28:00 [facility] Branch Body temperature 2022-02-14 36.33 Emmanuelle University of 20:28:00 [facility] Respiratory rate 2022-02-14 20 /min University of 20:28:00 [facility] Body height 2022-02-14 162.6 cm University of 20:28:00 [facility] Body weight 2022-02-14 124.059 kg University of 20:28:00 [facility] BMI 2022-02-14 46.95 kg/m2 University of 20:28:00 [facility] Systolic blood 2022-01-24 144 mm[Hg] Had to try 3x University o f pressure 22:13:00 before getting [place] [facility] reading [facility] Diastolic blood 2022-01-24 98 mm[Hg] Had to try 3x University of pressure 22:13:00 before getting [place] [facility] reading [facility] Heart rate 2022-01-24 97 /min University of 22:13:00 [facility] Body temperature 2022-01-24 36.89 Emmanuelle University of 22:13:00 [facility] Respiratory rate 2022-01-24 18 /min University of 22:13:00 [facility] Body height 2022-01-24 162.6 cm University of 22:13:00 [facility] Body weight 2022-01-24 125.919 kg University of 22:13:00 [facility] BMI 2022-01-24 47.65 kg/m2 University of 22:13:00 [facility] Oxygen saturation 2022-01-24 98 /min [facility] in Arterial blood 22:13:00 [facility] Pulse oximetry Branch Systolic blood 2021-12-06 124 mm[Hg] University of pressure 13:30:00 [facility] Branch Diastolic blood 2021-12-06 54 mm[Hg] University o f pressure 13:30:00 [facility] Heart rate 2021-12-06 72 /min University of 13:30:00 [facility] Body temperature 2021-12-06 36.28 Emmanuelle University of 13:30:00 [facility] Respiratory rate 2021-12-06 18 /min University of 13:30:00 [facility] Body height 2021-12-06 165.1 cm University of 13:30:00 [facility] Body weight 2021-12-06 130.296 kg [facility] 13:30:00 [facility] BMI 2021-12-06 47.80 kg/m2 [facility] 13:30:00 [facility] Procedures Procedure Date / Time Performing Clinician Source Performed POCT SARS-COV-2 ANTIGEN 2022-12-03 00:31:00 Jessika Manrique [facility] (BINAX NOW) [facility] CBC WITH DIFF 2022-10-02 19:30:00 Jennifer Ansari [facility] GLYCOSYLATED HEMOGLOBIN 2022-10-02 19:30:00 Jennifer Ansari [facility] (A1C) [facility] HCV ANTIBODY 2022-10-02 19:30:00 Jennifer Ansari [facility] GC & CHLAMYDIA AMPLIFIED 2022-10-02 19:30:00 Jennifer Ansari [facility] HIV 1/2 AG-AB WITH 2022-10-02 19:30:00 [facility] REFLEX [facility] TRICHOMONAS AMPLIFIED 2022-10-02 19:30:00 [facility] SME[facility]-LIQUID 2022-10-02 19:30:00 Jennifer Ansari [facility] BASED-[facility] SYPHILIS IGG/IGM 2022-10-02 19:30:00 Jennifer Ansari [facility] PATIENT FINANCIAL 2022-10-02 18:08:46 Doctor Unassigned, No [facility] POLICY Name [facility] POCT TEST 2022-04-30 16:35:00 Estevan Adams [facility] DISCLOSURE AND CONSENT, 2022-04-30 06:01:00 Doctor Unassigned, N o [facility] MEDICAL AND SURGICAL Name Medical [facility] PROCEDURES POCT TEST 2022-04-19 15:41:00 Estevan Adams [facility] BASIC METABOLIC PANEL 2022-03-03 15:57:00 Tiana Antonio [facility] (NA, K, CL, CO2, Medical Branch GLUCOSE, BUN, CREATININE, CA) ETHANOL 2022-03-03 15:57:00 Tiana Antonio [facility] CBC WITH DIFF 2022-03-03 15:57:00 Tiana Antonio [facility] URINALYSIS 2022-03-03 15:57:00 Tiana Antonio [facility] URINE DRUG (IMMUNOASSAY) 2022-03-03 15:57:00 [facility] HB ECG ROUTINE & RHYTHM 2022-03-03 15:55:48 Tiana Antonio [facility] POCT TEST 2022-02-14 20:48:00 Estevan Adams [facility] ASSIGNMENT OF BENEFITS 2022-02-14 19:38:06 Doctor Unassigned, No [facility] POCT URINALYSIS 2022-01-24 22:31:00 Jessika Manrique o [facility] POCT TEST 2021-12-06 15:36:[address] [facility] End Encounter Admission Attending Care Care Encounter Source Date/Time Date/Time Type Type Clinicians Facility Department ID 2021-01-22 Emergency [facility] [id number] Univers 06:46:[address] [facility] 2023-02-21 2023-02-21 Outpatient R AKINSIPE, [facility] [id number] Univers 15:00:00 15:00:00 ESTEVAN erickson o [facility] 2023-01-28 2023-01-28 Outpatient GC_GCBZW_Ka PRIV PRIV [id number] [facility] 00:00:00 00:00:00 diyala_S [id number] Medic al 2023-01-22 2023-01-22 Outpatient R AKINSIPE, [facility] [id number] Univers 08:30:00 08:30:00 ESTEVAN ity o [facility] 2023-01-19 2023-01-19 Outpatient GC_GCBZW_Ka PRIV PRIV [id number] [facility] 00:00:00 00:00:00 diyala_S [id number] Medic al 2023-01-18 2023-01-18 Outpatient GC_GCBZW_Ka PRIV PRIV [id number] [facility] 00:00:00 00:00:00 michelleking_S [id number] [facility] 2023-01-18 2023-01-18 [facility]phone [facility] [id number] Univers 00:00:00 00:00:00 Estevan Carlisle PROVIDER RELATIONS MANAGER [id number] ity of [facility] [id number] Jose Juan as MATERNAL [id number] [facility] & CHILD [address] [place] [address] 2023-01-14 2023-01-14 [facility] [id number] Univers 14:00:00 14:00:00 ALEKSBELÉN [facility]L [facility] 2022-12-04 2022-12-04 [facility]phone [facility] [id number] Univers 00:00:00 00:00:00 [facility] [id number] it y [facility] [id number] Jose Juan as LUCAS?BLEA [id number] [address] MEDICAL OFFICE [facility] 2022-12-02 2022-12-02 Outpatient R BURTON [facility] [id number] Univers 19:00:00 19:35:03 [facility] 2022-12-02 2022-12-02 Urgent Burton [facility] [id number] Univers 19:00:00 19:20:00 Care Unknown, Attending HEALTH [id number] [facility] 4.2.7.2.686 Jose Juan as LUCAS?BLEA [id number] [address] OFFICE [facility] 2022-10-04 2022-10-04 Telephone [facility] 1.2.840.114 [id number] Univers 00:00:00 00:00:00 Jennifer Malik PROVIDER RELATIONS MANAGER [id number] i ty of [facility] [id number] Jose Juan as MATERNAL [id number] [facility] ical & CHILD [address] [place] [address] 2022-10-02 2022-10-02 [facility] [id number] Univers 13:30:00 14:31:55 JENNIFER ity of [facility] 2022-10-02 2022-10-02 Office [facility] 1.2.840.114 [id number] Univers 13:30:00 14:31:55 Visit Jennifer Malik PROVIDER RELATIONS MANAGER [id number] i ty of [facility] 4.2.7.2.686 Jose Juan as MATERNAL [id number] [facility] & CHILD [address] [place] [address] 2022-10-02 2022-10-02 Orders Doctor MAGDA 1.2.840.114 [id number] Univers 00:00:00 00:00:00 Only Unassigned, ERASTO [id number] ity of [place] [facility] 4.2.7.2.686 Jose Juan as [id number] [address] 2022-07-04 2022-07-04 [facility] [id number] Univers 13:15:00 13:15:00 [facility] 2022-07-04 2022-07-04 Outpatient R JUSTIN [facility] [id number] Univers 13:15:00 13:15:00 [facility] 2022-07-04 2022-07-04 [facility] [id number] Univers 13:00:00 13:00:00 [facility] 2022-04-30 2022-04-30 [facility] [id number] Univers 10:00:00 10:30:00 Visit Estevan Carlisle PROVIDER RELATIONS MANAGER [id number] ity of [facility] [id number] Jose Juan as MATERNAL [id number] [facility] & CHILD [address] [place] [address] 2022-04-30 2022-04-30 Outpatient R BRYAN, [facility] [id number] Univers 10:00:00 10:00:00 ESTVEAN ity o [facility] 2022-04-30 2022-04-30 Orders Doctor MAGDA 1.2.840.114 [id number] Univers 00:00:00 00:00:00 Only Unassigned, ERASTO [id number] ity of [facility] 4.2.7.2.686 Jose Juan as [phone] [facility] 00[address] Branch 2022-04-19 2022-04-19 [facility] [id number] Univers 09:30:00 10:05:06 ESTEVAN erickson o f [facility] 2022-04-19 2022-04-19 Office [facility] [id number] Univers 09:30:00 10:05:06 Visit Estevan Carlisle PROVIDER RELATIONS MANAGER [id number] ity of [facility] 4.2.7.2.686 Jose Juan as MATERNAL [id number] [facility] & [address] 2022-04-19 2022-04-19 Letter [facility] [id number] Univers 00:00:00 00:00:00 (Out) Estevan Carlisle PROVIDER RELATIONS MANAGER [id number] ity of [facility] 4.2.7.2.686 Jose Juan as MATERNAL [id number] [facility] & [address] 2022-03-07 2022-03-07 Outpatient Divya ANDERSON [facility] [id number] Univers 09:45:00 09:45:00 SIRIA erickson o payal [facility] 2022-03-03 2022-03-03 Emergency X PACO, [facility] ERT [id number] Univers 09:22:00 12:44:00 TIANA erickson of [facility] 2022-03-03 2022-03-03 Emergency Paco, [facility] [id number] Univers 09:22:00 12:44:00 Tiana PADILLA [id number] ity [facility] 4.2.7.2.686 [facility] [id number] [facility] 0[address] Branch 2022-02-18 2022-02-18 [facility]ill [facility] [id number] [id number] Univers 00:00:00 00:00:00 Estevan C PROVIDER RELATIONS MANAGER [id number] ity of [facility] 4.2.7.2.686 Jose Juan as MATERNAL [id number] [facility] & [address] 2022-02-14 2022-02-14 Nurse Visit, [facility] Nurse [facility] 1.2 .840.114 [id number] Univers 13:30:00 14:35:37 Visit Jennifer Ansari PROVIDER RELATIONS MANAGER [id number] 0 ity of [facility] 4.2.7.2.686 Jose Juan as MATERNAL [id number] [address] 2022-02-14 2022-02-14 [facility] [id number] Univers 14:30:00 14:30:00 [facility] 2022-02-14 2022-02-14 [facility] [id number] Univers 13:30:00 13:30:00 [facility] 2022-02-14 2022-02-14 Orders Doctor MAGDA 1.2.840.114 [id number] Univers 00:00:00 00:00:00 Only Unassigned, ERASTO [id number] ity of [place] [facility] 4.2.7.2.686 Jose Juan as [id number] [address] 2022-02-14 2022-02-14 Telephone [facility] [id number] Univers 00:00:00 00:00:00 Siria Stokes PROVIDER RELATIONS MANAGER [id number] ity of [facility] 4.2.7.2.686 Jose Juan as MATERNAL [id number] [facility] & CHILD [address] [place] [address] 2022-02-06 2022-02-06 Telephone [facility] 1.2.840.114 [id number] Univers 00:00:00 00:00:00 Estevan C PROVIDER RELATIONS MANAGER [id number] ity of [facility] 4.2.7.2.686 Jose Juan as MATERNAL [id number] Med ical & CHILD 107 [facility] 2022-01-24 2022-01-24 Outpatient R BURTON [facility] [id number] Univers 17:20:00 17:28:54 JESSIKA ity [facility] 2022-01-24 2022-01-24 Urgent Jessika Manrique [facility] 1.2.840.114 [id number] Univers 17:20:00 17:28:54 Care Unknown, Attending HEALTH 350.1.13.10 ity [facility] 4.2.7.2.686 Jose Juan as LUCAS?BLEA [id number] Wy leandra [address] MEDICAL OFFICE BUILDING 2022-01-01 2022-01-01 Refill [facility] [id number] [id number] Univers 00:00:00 00:00:00 Estevan C PROVIDER RELATIONS MANAGER [id number] ity of [facility] 4.2.7.2.686 Jose Juan as MATERNAL [id number] Med ical & CHILD 107 [facility] 2022-01-01 2022-01-01 Telephone [facility] 1.2.840.114 [id number] Univers 00:00:00 00:00:00 Estevan C PROVIDER RELATIONS MANAGER [id number] ity of [facility] 4.2.7.2.686 Jose Juan as MATERNAL [id number] Med ical & CHILD 107 [facility] 2021-12-29 2021-12-29 Refill [facility] [id number] [id number] Univers 00:00:00 00:00:00 Estevan C PROVIDER RELATIONS MANAGER [id number] ity of [facility] 4.2.7.2.686 Jose Juan as MATERNAL [id number] Med ical & CHILD 107 [facility] 2021-12-06 2021-12-06 Office [facility] [id number] Univers 08:15:00 08:54:24 Visit Estevan C PROVIDER RELATIONS MANAGER [id number] ity of [facility] 4.2.7.2.686 Jose Juan as MATERNAL [id number] Med ical & CHILD 107 [facility] 2021-12-06 2021-12-06 Outpatient R AKINSIPE, [facility] [id number] Univers 08:15:00 08:54:24 ESTEVAN odonnelly o payal [facility] 2021-12-06 2021-12-06 Outpatient R AKINSIPE, [facility] [id number] Univers 08:15:00 08:15:00 ESTEVAN ity o f [facility] 2021-11-22 2021-11-22 Outpatient R AKINSIPE, [facility] [id number] Univers 15:15:00 15:15:00 ESTEVAN odonnelly o payal [facility] 2021-11-21 2021-11-21 Telephone [facility] [id number] [id number] Univers 00:00:00 00:00:00 Rosnda R PROVIDER RELATIONS MANAGER [id number] ity of [facility] 4.2.7.2.686 Jose Juan as MATERNAL [id number] Med ical & CHILD 107 [facility] 2021-11-20 2021-11-20 Telephone [facility] [id number] Univers 00:00:00 00:00:00 Rosnda R PROVIDER RELATIONS MANAGER [id number] ity of [facility] 4.2.7.2.686 Jose Juan as MATERNAL [id number] Med ical & CHILD [address] [place] [address] 2021-09-03 2021-09-03 [facility] 1.2.840.114 [id number] Univers 00:00:00 00:00:00 Roshunda R PROVIDER RELATIONS MANAGER [id number] ity of [facility] 4.2.7.2.686 Jose Juan as MATERNAL [id number] Med ical & CHILD 107 [facility] 2021-07-04 2021-07-04 [facility] 1.2.840.114 [id number] Univers 12:45:00 13:31:36 Visit Rosnda R PROVIDER RELATIONS MANAGER [id number] ity of [facility] 4.2.7.2.686 Jose Juan as MATERNAL [id number] Med ical & CHILD [address] [place] [address] 2021-07-04 2021-07-04 Outpatient R JUSTIN [facility] [id number] Univers 12:45:00 13:31:36 SIRIA ity o f [facility] 2021-07-04 2021-07-04 Outpatient R JUSTIN [facility] [id number] Univers 12:45:00 12:45:00 ROSKALI ity o f [facility] 2021-07-04 2021-07-04 Telephone JennaMAGDA [id number] Univers 00:00:00 00:00:00 Maisha MAURER 350.1.13.10 it y [facility] 4.2.7.2.686 Jose Juan as [id number] [address] 2021-07-03 2021-07-03 Outpatient R BURTON [facility] [id number] Univers 18:20:00 18:53:[facility] 2021-07-03 2021-07-03 [facility]gent [facility] 1.2.840.114 [id number] Univers 18:20:00 18:53:48 Care [facility] 350.1.13.10 it [facility] 4.2.7.2.686 Jose Juan as LUCAS?BLEA [id number] [address] MEDICAL OFFICE [facility] 2021-07-03 2021-07-03 Outpatient R BURTON [facility] [id number] Univers 18:20:00 18:53:48 [facility] 2021-07-03 2021-07-03 Outpatient YING RIOJAS [id number] Ying 09:30:00 09:30:00 EASTON Seshashiol d 2021-07-03 2021-07-03 Outpatient YING RIOJAS [id number] Ying 08:15:00 08:15:00 EASTON Seybol d 2021-07-03 2021-07-03 Patient Justin [facility] 1.2.840.114 [id number] Univers 00:00:00 00:00:00 Secure Msg Siria R PROVIDER RELATIONS MANAGER [id number] ity of [facility] 4.2.7.2.686 Jose Juan as MATERNAL [id number] [facility] & CHILD [address] [place] [address] 2021-06-21 2021-06-21 [facility] [id number] Univers 13:00:00 14:53:50 ROSNESSANDA ity o f [facility] 2021-06-21 2021-06-21 Office [facility] 1.2.840.114 [id number] Univers 13:00:00 14:53:50 Visit Rosnessanda R PROVIDER RELATIONS MANAGER 350.1.13.10 ity of REGIONAL 4.2.7.2.686 Jose Juan as MATERNAL [id number] [address] 2021-06-21 2021-06-21 [facility] [id number] Univers 13:00:00 14:53:50 MONTSENDA ity o f [facility] 2021-05-31 2021-05-31 Outpatient R [facility] [id number] Univers 08:00:00 09:04:36 ROSHUNDA ity o f [facility] 2021-05-31 2021-05-31 Routine [facility] 1.2.840.114 [id number] Univers 08:00:00 09:04:36 Roshunda R PROVIDER RELATIONS MANAGER 350.1.13.10 ity of Visit REGIONAL 4.2.7.2.686 Jose Juan as MATERNAL [id number] [facility] & CHILD [address] [place] [address] 2021-05-29 2021-05-29 Patient [facility] 1.2.840.114 [id number] Univers 00:00:00 00:00:00 Secure Msg Roshunda R PROVIDER RELATIONS MANAGER 350.1.13.10 ity of REGIONAL 4.2.7.2.686 Jose Juan as MATERNAL [id number] [facility] & CHILD [address] [place] [address] 2021-05-19 2021-05-19 Telephone [facility] 1.2.840.114 [id number] Univers 00:00:00 00:00:00 Estevan C PROVIDER RELATIONS MANAGER 350.1.13.10 ity of [facility] 4.2.7.2.686 Jose Juan as MATERNAL [id number] [facility] ical & CHILD [address] [place] [address] 2021-05-17 2021-05-17 Nurse Nurse, Naun Lima Exp Cprit Obgyn [facility] 1.2.840.114 [id number] Univers 13:00:00 13:00:00 Visit Siria Anderson PROVIDER RELATIONS MANAGER 350.1.13.10 ity [facility] 4.2.7.2.686 Jose Juan as MATERNAL [id number] [facility] ical & CHILD [address] [place] [address] 2021-05-17 2021-05-17 Outpatient R JUSTIN [facility] [id number] Univers 13:00:00 08:46:02 SIRIA erickson o f [facility] 2021-05-17 2021-05-17 Nurse Visit, Oly Nurse [facility] 1.2 .840.114 [id number] Univers 08:00:00 08:45:55 Visit Siria Anderson PROVIDER RELATIONS MANAGER 350.1.13.10 ity of [facility] 4.2.7.2.686 Jose Juan as MATERNAL [id number] [facility] & [address] 2021-05-09 2021-05-12 Inpatient P THA [facility] REZA [id number] Univers 17:42:00 16:52:00 JODEE erickson [facility] 2021-05-09 2021-05-12 Hospital MAGDA Malik 1.2.840.114 [id number] Univers 17:42:00 16:52:00 Encounter Jodee MAURER 350.1.13.10 ity of [facility] 4.2.7.2.686 Jose Juan as [id number] [facility] [address] 2021-05-10 2021-05-10 Surgery MAGDA Fernandez 1.2.840.114 [id number] Univers 17:00:00 18:47:00 Zbigniew MAURER 350.1.13.10 i ty of [facility] 4.2.7.2.686 Jose Juan as [id number] [facility] [address] 2021-05-10 2021-05-10 Anesthesia Glen Mcgraw 1.2.840.1 14 [id number] Univers 09:54:00 18:34:00 Event Leonel Mason ERASTO 350.1.13.10 ity of [facility] 4.2.7.2.686 Jose Juan as [id number] [address] 2021-05-09 2021-05-09 Outpatient R JUSTIN [facility] [id number] Univers 13:15:00 14:00:22 ROSHUNDA ity o f [facility] 2021-05-09 2021-05-09 Routine [facility] 1.2.840.114 [id number] Univers 13:15:00 14:00:22 Roshunda R PROVIDER RELATIONS MANAGER 350.1.13.10 ity of Visit REGIONAL 4.2.7.2.686 Jose Juan as MATERNAL [id number] [facility] & CHILD [address] [place] [address] 2021-05-02 2021-05-02 Outpatient R JUSTIN [facility] [id number] Univers 15:30:00 15:58:07 ROSHUNDA ity o f [facility] 2021-05-02 2021-05-02 Routine [facility] 1.2.840.114 [id number] Univers 15:30:00 15:58:07 Roshunda R PROVIDER RELATIONS MANAGER 350.1.13.10 ity of Visit REGIONAL 4.2.7.2.686 Jose Juan as MATERNAL [id number] [address] 2021-05-02 2021-05-02 Abstract Justin [facility] 1.2.840.114 [id number] Univers 00:00:00 00:00:00 Roshunda R PROVIDER RELATIONS MANAGER 350.1.13.10 ity of REGIONAL 4.2.7.2.686 Jose Juan as MATERNAL [id number] [facility] & [address] 2021-04-28 2021-04-28 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, [facility] 1.2 .840.114 [id number] Univers 09:30:00 10:00:00 Visit Katelyn Murillo PROVIDER RELATIONS MANAGER 350.1.13.10 ity of REGIONAL 4.2.7.2.686 Joes Juan as MATERNAL [id number] [facility] ical & CHILD [address] [facility] 2021-04-28 2021-04-28 Outpatient P [facility] [id number] Univers 09:30:00 09:30:00 ity [facility] 2021-04-28 2021-04-28 Outpatient P [facility] [id number] Univers 09:30:00 09:30:00 ity [facility] 2021-04-28 2021-04-28 Outpatient P ANTHONY KATELYN [facility] [id number] Univers 09:30:00 09:30:[address] [facility] 2021-04-25 2021-04-25 Outpatient R JUSTIN [facility] [id number] Univers 15:30:00 16:19:38 ROSHUNDA ity o f [facility] 2021-04-25 2021-04-25 Routine [facility] 1.2.840.114 [id number] Univers 15:30:00 16:19:38 Roshunda R PROVIDER RELATIONS MANAGER 350.1.13.10 ity of Visit REGIONAL 4.2.7.2.686 Jose Juan as MATERNAL [id number] [facility] & CHILD [address] [place] [address] 2021-04-25 2021-04-25 Outpatient R JUSTIN [facility] [id number] Univers 15:30:00 15:30:00 ROSHUNDA ity o f [facility] 2021-04-24 2021-04-24 Outpatient P [facility] [id number] Univers 15:30:00 15:30:00 ity [facility] 2021-04-21 2021-04-21 Telephone [facility] 1.2.643.234 [id number] Univers 00:00:00 00:00:00 Roshunda R PROVIDER RELATIONS MANAGER 350.1.13.10 ity of REGIONAL 4.2.7.2.686 Jose Juan as MATERNAL [id number] [facility] ical & CHILD [address] [place] [address] 2021-04-19 2021-04-19 Outpatient R JUSTIN [facility] [id number] Univers 13:15:00 13:15:00 ROSHUNDA ity o payal [facility] 2021-04-19 2021-04-19 Carrier Driver Lab, Ang-Rmchp [facility] 1.2.840. 114 [id number] Univers 13:15:00 13:15:00 Visit Siria Anderson R PROVIDER RELATIONS MANAGER 350.1.13.10 ity of REGIONAL 4.2.7.2.686 Jose Juan as MATERNAL [id number] [facility] & CHILD [address] [place] [address] 2021-04-19 2021-04-19 Outpatient P [facility] [id number] Univers 13:00:00 13:00:00 ity of [facility] 2021-04-19 2021-04-19 Telephone Anderson [facility] 1.2.675.914 [id number] Univers 00:00:00 00:00:00 Siria Stokes PROVIDER RELATIONS MANAGER 350.1.13.10 ity of REGIONAL 4.2.7.2.686 Jose Juan as MATERNAL [id number] [facility] & [address] 2021-04-18 2021-04-18 Outpatient Divya ANDERSON [facility] [id number] Univers 15:30:00 16:11:31 SIRIA strong [facility] 2021-04-18 2021-04-18 Routine [facility] 1.2.840.114 [id number] Univers 15:30:00 16:11:31 Siria R PROVIDER RELATIONS MANAGER 350.1.13.10 ity of Visit REGIONAL 4.2.7.2.686 Jose Juan as MATERNAL [id number] [facility] & [address] 2021-04-18 2021-04-18 Outpatient Divya ANDERSON [facility] [id number] Univers 15:30:00 16:11:31 SIRIA strong [facility] 2021-04-18 2021-04-18 Outpatient Divya ANDERSON [facility] [id number] Univers 15:30:00 15:30:00 ANETTEKing blastiara o [facility] 2021-04-11 2021-04-11 Outpatient Divya ANDERSON [facility] [id number] Univers 13:00:00 14:15:13 MONTSENDA dre o payal [facility] 2021-04-11 2021-04-11 Outpatient R JUSTIN [facility] [id number] Univers 13:00:00 14:15:13 MONTSENDA blasy o f [facility] 2021-04-11 2021-04-11 Routine Justin [facility] 1.2.840.114 [id number] Univers 13:00:00 14:15:13 Montsenda R PROVIDER RELATIONS MANAGER 350.1.13.10 ity of Visit REGIONAL 4.2.7.2.686 Jose Juan as MATERNAL [id number] Med ical & CHILD [address] [place] [address] 2021-04-11 2021-04-11 Outpatient R ANDERSON, [facility] [id number] Univers 13:00:00 13:00:00 SIRIA erickson o payal [facility] 2021-03-29 2021-03-29 Telephone [facility] 1.2.993.910 [id number] Univers 00:00:00 00:00:00 Anettea R PROVIDER RELATIONS MANAGER 350.1.13.10 ity of REGIONAL 4.2.7.2.686 Jose Juan as MATERNAL [id number] [facility] & CHILD [address] [place] [address] 2021-03-22 2021-03-22 Outpatient R JUSTIN [facility] [id number] Univers 14:30:00 14:51:40 MONTSENDA dre o payal [facility] 2021-03-22 2021-03-22 Routine Siria Anderson R [facility] 1.2.840 .114 [id number] Univers 14:30:00 14:51:40 ThaKeyshawnio F PROVIDER RELATIONS MANAGER 350.1.13.10 ity of Visit REGIONAL 4.2.7.2.686 Jose Juan as MATERNAL [id number] [facility] ical & CHILD [address] [place] [address] 2021-03-22 2021-03-22 [facility]patient [facility] [id number] Univers 14:30:00 14:30:00 MONTSENDA dre o [facility] 2021-03-22 2021-03-22 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, [facility] 1.2 .840.114 [id number] Univers 14:00:00 14:30:00 Visit JustinSiria PROVIDER RELATIONS MANAGER 350.1.13.10 ity of Jodee Malik REGIONAL 4.2.7.2.686 [place] MATERNAL [id number] Med ical & CHILD [address] [facility] 2021-03-22 2021-03-22 Abstract Andersno [facility] 1.2.840.114 [id number] Univers 00:00:00 00:00:00 Rostimoteoa R PROVIDER RELATIONS MANAGER 350.1.13.10 ity of REGIONAL 4.2.7.2.686 Jose Juan as MATERNAL [id number] Med ical & CHILD 107 [facility] 2021-03-15 2021-03-15 Patient Justin [facility] 1.2.840.114 [id number] Univers 00:00:00 00:00:00 Secure Msg Siria R PROVIDER RELATIONS MANAGER 350.1.13.10 ity of REGIONAL 4.2.7.2.686 Jose Juan as MATERNAL [id number] Med ical & CHILD 107 [facility] 2021-03-14 2021-03-14 Telephone Justin [facility] 1.2.410.363 [id number] Univers 00:00:00 00:00:00 Siria R PROVIDER RELATIONS MANAGER 350.1.13.10 ity of REGIONAL 4.2.7.2.686 Jose Juan as MATERNAL [id number] Med ical & CHILD [address] [place] [address] 2021-03-13 2021-03-13 Refill Yelena [facility] 1.2.128.001 [id number] Univers 00:00:00 00:00:00 Aliciaerie O PROVIDER RELATIONS MANAGER 350.1.13.10 ity of REGIONAL 4.2.7.2.686 Jose Juan as MATERNAL [id number] Med ical & CHILD 124 [facility] 2021-03-13 2021-03-13 Refill Justin [facility] 1.2.840.114 [id number] Univers 00:00:00 00:00:00 Montsenda R PROVIDER RELATIONS MANAGER 350.1.13.10 ity of REGIONAL 4.2.7.2.686 Jose Juan as MATERNAL [id number] [facility] ical & CHILD [address] [place] [address] 2021-03-10 2021-03-10 [facility] 1.2.840.114 [id number] Univers 00:00:00 00:00:00 Roshunda R PROVIDER RELATIONS MANAGER 350.1.13.10 ity of REGIONAL 4.2.7.2.686 Jose Juan as MATERNAL [id number] [facility] ical & CHILD [address] [place] [address] 2021-03-10 2021-03-10 [facility] 1.2.505.981 [id number] Univers 00:00:00 00:00:00 Mellerie O PROVIDER RELATIONS MANAGER 350.1.13.10 ity of REGIONAL 4.2.7.2.686 Jose Juan as MATERNAL [id number] [facility] & CHILD [address] [place] [address] 2021-03-09 2021-03-09 Outpatient R JUSTIN [facility] [id number] Univers 15:45:00 16:18:23 ROSHUNDA ity o f [facility] 2021-03-09 2021-03-09 [facility]ine [facility] 1.2.840.114 [id number] Univers 15:45:00 16:18:23 Roshunda R PROVIDER RELATIONS MANAGER 350.1.13.10 ity of Visit REGIONAL 4.2.7.2.686 Jose Juan as MATERNAL [id number] [facility] & CHILD [address] [place] [address] 2021-03-09 2021-03-09 [facility] 1.2.985.840 [id number] Univers 00:00:00 00:00:00 Mellerie O PROVIDER RELATIONS MANAGER 350.1.13.10 ity of REGIONAL 4.2.7.2.686 Jose Juan as MATERNAL [id number] [facility] & CHILD [address] [place] [address] 2021-03-09 2021-03-09 [facility] 1.2.840.114 [id number] Univers 00:00:00 00:00:00 Roshunda R PROVIDER RELATIONS MANAGER 350.1.13.10 ity of REGIONAL 4.2.7.2.686 Jose Juan as MATERNAL [id number] [facility] ical & CHILD [address] [place] [address] 2021-03-08 2021-03-08 Outpatient Divya ANDERSON [facility] [id number] Univers 15:45:00 15:45:00 MONTSENDA ittiara o f [facility] 2021-02-22 2021-02-22 Outpatient Divya ALICEA [facility] [id number] Univers 10:00:00 11:57:26 AARON erickson o f [facility] 2021-02-22 2021-02-22 Routine Provider, Oly [facility] 1 .2.840.114 [id number] Univers 09:59:09 11:57:26 Aaron Alicea PROVIDER RELATIONS MANAGER 350.1.13 .10 ity of Visit REGIONAL 4.2.7.2.686 Jose Juan as MATERNAL [id number] [facility] & CHILD [address] [place] [address] 2021-02-13 2021-02-13 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, [facility] 1.2 .840.114 [id number] Univers 10:52:00 11:22:00 Visit Silvana Venegas PROVIDER RELATIONS MANAGER 350.1.13.10 ity of REGIONAL 4.2.7.2.686 Jose Juan as MATERNAL [id number] [facility] & CHILD [address] [facility] 2021-02-13 2021-02-13 Outpatient P SILVANA VENEGAS [facility] [id number] Univers 10:45:00 10:45:00 SILVANA VENEGAS ity of [facility] 2021-02-13 2021-02-13 Case Nicole [facility] 1.2.254.700 [id number] Univers 00:00:00 00:00:00 Management Bo Hunt PROVIDER RELATIONS MANAGER 350.1.13.10 ity of REGIONAL 4.2.7.2.686 Jose Juan as MATERNAL [id number] Med ical & CHILD [address] [place] [address] 2021-02-03 2021-02-03 Telephone Yelena [facility] 1.2.840.114 [id number] Univers 00:00:00 00:00:00 Janicee O PROVIDER RELATIONS MANAGER 350.1.13.10 ity of REGIONAL 4.2.7.2.686 Jose Juan as MATERNAL [id number] Med ical & CHILD 124 [facility] 2021-02-01 2021-02-01 Outpatient R NICOLE [facility] [id number] Univers 10:45:00 11:09:09 BO erickson of [facility] 2021-02-01 2021-02-01 Routine Provider, Naun-Rmchp [facility] 1 .2.840.114 [id number] Univers 10:04:55 11:09:09 Bo Rivera PROVIDER RELATIONS MANAGER 350.1.13.10 ity of Visit REGIONAL 4.2.7.2.686 Jose Juan as MATERNAL [id number] [facility] ical & CHILD [address] [place] [address] 2021-01-31 2021-01-31 [facility] 1.2.840.114 [id number] Univers 00:00:00 00:00:00 [facility] 350.1.13.10 it y of [place] 4.2.7.2.686 Jose Juan as LUCAS?BLEA [id number] [address] MEDICAL OFFICE BUILDING 2021-01-30 2021-01-[address] [facility] 1.2.840.114 [id number] Univers 00:00:00 00:00:00 Aaron Strong PROVIDER RELATIONS MANAGER 350.1.13.10 ity of REGIONAL 4.2.7.2.686 Jose Juan as MATERNAL [id number] [facility] ical & CHILD [address] [place] [address] 2021-01-29 2021-01-29 Saul Anderson [facility] 1.2.840.114 [id number] Univers 00:00:00 00:00:00 Siria R PROVIDER RELATIONS MANAGER 350.1.13.10 ity of [facility] 4.2.7.2.686 Jose Juan as MATERNAL [id number] [facility] ical & CHILD [address] [place] [address] 2021-01-29 2021-01-29 Refelzbieta Adhikari [facility] 1.2.840.114 [id number] Univers 00:00:00 00:00:00 [facility] 350.1.13.10 it y of [place] 4.2.7.2.686 Jose Juan as LUCAS?BLEA [id number] [address] OFFICE [facility] 2021-01-19 2021-01-19 Outpatient R CASEY [facility] [id number] Univers 14:40:00 15:06:44 AMAYA ity of [facility] 2021-01-19 2021-01-19 Urgent Nguyễn Adhikari [facility] 1.2.840.114 [id number] Univers 14:22:57 15:06:44 Jose Francisco [facility] 350.1.13.10 ity of [place] 4.2.7.2.686 Jose Juan as LUCAS?BLEA [id number] [address] 2021-01-04 2021-01-04 [facility]phone [facility] 1.2.846.972 [id number] Univers 00:00:00 00:00:00 Rosnda R PROVIDER RELATIONS MANAGER 350.1.13.10 ity of [facility] 4.2.7.2.686 Jose Juan as MATERNAL [id number] Med ical & CHILD [address] [place] [address] 2021-01-03 2021-01-03 Telephone [facility] 1.2.410.586 [id number] Univers 00:00:00 00:00:00 Rosnda R PROVIDER RELATIONS MANAGER 350.1.13.10 ity of [facility] 4.2.7.2.686 Jose Juan as MATERNAL [id number] Med ical & CHILD [address] [place] [address] 2021-01-03 2021-01-03 Telephone [facility] 1.2.376.349 [id number] Univers 00:00:00 00:00:00 Roshunda R PROVIDER RELATIONS MANAGER 350.1.13.10 ity of [facility] 4.2.7.2.686 Jose Juan as MATERNAL [id number] Med ical & CHILD [address] [place] [address] 2021-01-02 2021-01-02 Routine Provider, Oly [facility] 1 .2.840.114 [id number] Univers 10:45:39 11:10:03 BolivarAaron Tae PROVIDER RELATIONS MANAGER 350.1.13 .10 ity of Visit REGIONAL 4.2.7.2.686 Jose Juan as MATERNAL [id number] [facility] ical & CHILD [address] [place] [address] 2021-01-02 2021-01-02 Outpatient R [facility] [id number] Univers 10:45:00 10:45:00 ity of [facility] 2020-12-21 2020-12-21 Office Palmira Phillips [facility] 1.2.84 0.114 [id number] Univers 10:52:25 11:26:21 Visit Yair Escoto [facility] 350.1.13.10 ity of CL[place].2.[place] [id number] [address] 2020-12-21 2020-12-21 Outpatient P [facility] [id number] Univers 10:30:00 10:30:00 ity of [facility] 2020-12-19 2020-12-19 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, [facility] 1.2 .840.114 [id number] Univers 08:20:30 09:35:30 Visit Gianni Whitaker PROVIDER RELATIONS MANAGER 350.1.13.1 0 ity of REGIONAL 4.2.7.2.686 Jose Juan as MATERNAL [id number] [facility] & CHILD 369 [facility] 2020-12-19 2020-12-19 Outpatient P [facility] [id number] Univers 08:00:00 08:00:00 ity of [facility] 2020-12-19 2020-12-19 Abstract Justin [facility] 1.2.840.114 [id number] Univers 00:00:00 00:00:00 Siria Stokes PROVIDER RELATIONS MANAGER 350.1.13.10 ity of REGIONAL 4.2.7.2.686 Jose Juan as MATERNAL [id number] [facility] & CHILD [address] [place] [address] 2020-12-07 2020-12-07 Telephone Justin [facility] 1.2.869.347 [id number] Univers 00:00:00 00:00:00 Siria R PROVIDER RELATIONS MANAGER 350.1.13.10 ity of REGIONAL 4.2.7.2.686 Jose Juan as MATERNAL [id number] [facility] CHILD [address] [place] [address] 2020-12-05 2020-12-05 Routine [facility] 1.2.840.114 [id number] Univers 10:15:59 10:54:56 Roshunda R PROVIDER RELATIONS MANAGER 350.1.13.10 ity of Visit REGIONAL 4.2.7.2.686 Jose Juan as MATERNAL [id number] [facility] & CHILD [address] [place] [address] 2020-12-05 2020-12-05 Routine [facility] 1.2.840.114 [id number] Univers 10:15:59 10:54:56 Roshunda R PROVIDER RELATIONS MANAGER 350.1.13.10 ity of Visit REGIONAL 4.2.7.2.686 Jose Juan as MATERNAL [id number] [facility] & [address] 2020-12-05 2020-12-05 [facility] [id number] Univers 10:15:00 10:15:00 ROSHUNDA ity o f [facility] 2020-11-07 2020-11-07 Routine [facility] 1.2.840.114 [id number] Univers 08:42:18 09:41:48 Roshunda R PROVIDER RELATIONS MANAGER 350.1.13.10 ity of Visit REGIONAL 4.2.7.2.686 Jose Juan as MATERNAL [id number] [facility] & [address] 2020-11-07 2020-11-07 [facility]patient [facility] [id number] Univers 08:45:00 08:45:00 ROSHUNDA ity o f [facility] 2020-11-01 2020-11-01 Telephone [facility] 1.2.939.052 [id number] Univers 00:00:00 00:00:00 Roshunda R PROVIDER RELATIONS MANAGER 350.1.13.10 ity of REGIONAL 4.2.7.2.686 Jose Juan as MATERNAL [id number] [facility] & CHILD [address] [place] [address] 2020-10-27 2020-10-27 Patient Doctor [facility] 1.2.840.114 [id number] Univers 00:00:00 00:00:00 Secure Msg Unassigned, PROVIDER RELATIONS MANAGER 350.1.13.10 ity of [place] REGIONAL 4.2.7.2.686 Jose Juan as MATERNAL [id number] [facility] ical & CHILD [address] [place] [address] 2020-10-27 2020-10-27 Telephone Justin [facility] 1.2.585.786 [id number] Univers 00:00:00 00:00:00 Rosnda R PROVIDER RELATIONS MANAGER 350.1.13.10 ity of REGIONAL 4.2.7.2.686 Jose Juan as MATERNAL [id number] [facility] & CHILD [address] [place] [address] 2020-10-26 2020-10-26 Telephone Justin [facility] 1.2.415.748 [id number] Univers 00:00:00 00:00:00 Rosnessanda R PROVIDER RELATIONS MANAGER 350.1.13.10 ity of REGIONAL 4.2.7.2.686 Jose Juan as MATERNAL [id number] [facility] CHILD [address] [place] [address] 2020-10-19 2020-10-19 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, Patricio [facility] 1.2 .840.114 [id number] Univers 13:59:38 14:29:38 Visit Cristin Wei PROVIDER RELATIONS MANAGER 350.1. 13.10 ity of REGIONAL 4.2.7.2.686 Jose Juan as MATERNAL [id number] [facility] & CHILD [address] [place] [address] 2020-10-19 2020-10-19 Outpatient P [facility] [id number] Univers 14:00:00 14:00:00 ity of [facility] 2020-10-19 2020-10-19 Abstract Justin [facility] 1.2.840.114 [id number] Univers 00:00:00 00:00:00 Anettea R PROVIDER RELATIONS MANAGER 350.1.13.10 ity of REGIONAL 4.2.7.2.686 Jose Juan as MATERNAL [id number] [facility] ical & CHILD [address] [place] [address] 2020-10-10 2020-10-10 Initial Justin [facility] 1.2.840.114 [id number] Univers 08:57:06 09:57:15 Roshunda R PROVIDER RELATIONS MANAGER 350.1.13.10 ity of Visit [facility] 4.2.7.2.686 Jose Juan as MATERNAL [id number] Med ical & CHILD [address] [place] [address] 2020-10-10 2020-10-10 Outpatient R [facility] [id number] Univers 08:30:00 08:30:00 ity of [facility] 2020-10-10 2020-10-10 Orders Doctor MAGDA 1.2.840.114 [id number] Univers 00:00:00 00:00:00 Only Unassigned, ERASTO 350.1.13.10 ity of [facility] [id number] Jose Juan as [phone] [address] 2020-06-24 2020-06-24 [facility] [id number] Univers 16:00:00 16:00:00 JULISSA erickson [facility] 2020-06-24 2020-06-24 [facility] 1.2.840.114 [id number] Univers 11:27:53 11:49:24 Visit Julissa Padilla [id number] ity [facility] [id number] [phone] Wy dical nal [address] [facility] 2020-06-24 2020-06-24 Outpatient R AD, [facility] [id number] Univers 11:00:00 11:00:00 JULISSA erickson [facility] 2020-06-14 2020-06-14 Patient Anthony [facility] 1.2.840.114 [id number] Univers 00:00:00 00:00:00 Outreach Reji CLIFTON [id number] i ty of [facility] [id number] [phone] Me dical [address] 2020-06-08 2020-06-09 Emergency Emma Ann [facility] 1.2.840 .114 [id number] Univers 19:38:00 12:50:00 [place] Milad [place] [id number] ity of Julissa Michele [id number] [facility] [phone] [facility] [address] 2020-06-08 2020-06-08 Urgent Provider, [facility] 1.2.840.114 [id number] Univers 18:59:31 19:19:31 Care Saadia Lovett [facility] [id number] ity of [place] [id number] Jose Juan as Professio [phone] Wy dic[address] Office [address] [facility] 2020-06-08 2020-06-08 Outpatient R BONY [facility] [id number] Univers 18:40:00 18:40:00 SAADIA erickson [facility] [facility] 2020-05-24 2020-05-24 Office [facility] 1.2.840.114 [id number] Univers 13:16:03 14:05:26 Visit [facility] 350.1.13.10 i ty of [place] 4.2.7.2.686 Jose Juan as Professio [phone] [address] Office Building One 2020-05-24 2020-05-24 Outpatient R OMAR [facility] [id number] Univers 13:00:00 13:00:00 DELANO erickson o f [facility] 2020-05-19 2020-05-19 Outpatient R BARBY [facility] [id number] Univers 13:00:00 13:00:00 YOVANY erickson [facility] 2020-05-19 2020-05-19 Orders Doctor MAGDA 1.2.840.114 [id number] Univers 00:00:00 00:00:00 Only Unassigned, ERASTO 350.1.13.10 ity of [place] [facility] 4.2.7.2.686 Jose Juan as [phone] [facility] [address] 2020-03-28 2020-03-28 Urgent [facility] 1.2.840.114 [id number] Univers 19:14:32 19:51:01 Care [facility] 350.1.13.10 it y of [place] 4.2.7.2.686 Jose Juan as Professio [phone] Wy dical [address] Office Building One 2020-03-28 2020-03-28 Outpatient R [facility] [id number] Univers 19:20:00 19:20:00 ity of [facility] 2020-03-28 2020-03-28 Letter Doctor MAGDA 1.2.840.114 [id number] Univers 00:00:00 00:00:00 (Out) Unassigned, ERASTO 350.1.13.10 ity of [place] [facility] 4.2.7.2.686 Jose Juan as [phone] [address] 2020-01-15 2020-01-15 [facility] [id number] Univers 08:15:00 08:15:00 [facility] 2019-03-12 2019-03-12 Outpatient [facility] [id number] Univers 14:26:14 23:59:00 [facility] Results Test Description Test Time Test Comments Results Result Comments Source POCT SARS-COV-2 ANTIGEN (BINAX NOW) 2022-12-03 00:31:00 Test Item Value Reference Range Interpretation Comme nts POCT SARS-COV-2 ANTIGEN (test code Not Detected Not Detected = 81949-2) On board controls acceptable with Yes C Line (test code = 3574) VASHTI (test code = VASHTI) accurate development and interpretation of all internal controls Lab Interpretation (test code = Normal 37856-4) [facility] ONLY - SYPHILIS [id number] 16:24:15 Test Item Value Reference Range Interpretation Comments Syphilis IgG/IgM (test Non-reactive Non-reactive code = 70176-3) VASHTI (test code = VASHTI) Non-reactive - No serologic evidence of T. pallidum infection. Cannot exclude incubating or early syphilis. Submit a second specimen in 2-4 weeks if syphilis is clinically suspected. Equivocal - Further testing to follow. Reactive - Further testing to follow. Lab Interpretation (test Normal code = 30345-0) [facility] ONLY - SYPHILIS [id number] 16:24:15 Test Item Value Reference Range Interpretation Comments Syphilis IgG/IgM (test Non-reactive Non-reactive code = 80751-6) VASHTI (test code = VASHTI) Non-reactive - No serologic evidence of T. pallidum infection. Cannot exclude incubating or early syphilis. Submit a second specimen in 2-4 weeks if syphilis is clinically suspected. Equivocal - Further testing to follow. Reactive - Further testing to follow. Lab Interpretation (test Normal code = 06219-3) [facility] 07:09:19 Test Item Value Reference Range Interpretation Comments HGB A1C (test code = 5.3 % 4.0-5.7 4548-4) VASHTI (test code = VASHTI) Reference RangesNormal: <5.7%Prediabetes: 5.7 - 6.4%Diabetes: > 6.5% Lab Interpretation (test Normal code = 76124-9) [facility]2022-10-03 07:09:19 Test Item Value Reference Range Interpretation Comments HGB A1C (test code = 5.3 % 4.0-5.7 4548-4) VASHTI (test code = VASHTI) Reference RangesNormal: <5.7%Prediabetes: 5.7 - 6.4%Diabetes: > 6.5% Lab Interpretation (test Normal code = 47401-8) [facility] 1/2 AG-AB WITH [id number] 06:09:39 Test Item Value Reference Range Interpretation Comments HIV 0.09 Negative Semi-quantitative (test code = 06403-8) VASHTI (test code = Non-reactive for HIV-1 VASHTI) antigen and HIV-1/HIV-2 antibodies. ?No laboratory evidence of HIV infection. ?Repeat in 2-4 weeks if acute HIV infection is suspected. [facility] [id number] 06:09:39 Test Item Value Reference Range Interpretation Comments HCV Ab (test code = 60396-3) Negative HCV Semi-Quantitative (test code = 0.03 91133-9) [facility] 1/2 AG-AB WITH [id number] 06:09:39 Test Item Value Reference Range Interpretation Comments HIV 0.09 Negative Semi-quantitative (test code = 61033-2) VASHTI (test code = Non-reactive for HIV-1 VASHTI) antigen and HIV-1/HIV-2 antibodies. ?No laboratory evidence of HIV infection. ?Repeat in 2-4 weeks if acute HIV infection is suspected. [facility] [id number] 06:09:39 Test Item Value Reference Range Interpretation Comments HCV Ab (test code = 12710-1) Negative HCV Semi-Quantitative (test code = 0.03 02530-1) [facility] [id number] 05:35:17 Test Item Value Reference Range Interpretation Comments WBC (test code = 9.97 See_Comment [Automated 5990-2) message] The sy stem which generated this result transmitted reference range : 4.30 - 11.10 10*3/?L. The reference range was not used to interpret this result as normal/abnormal . RBC (test code = 5.20 See_Comment [Automated 789-8) message] The sy stem which generated this result transmitted reference range : 3.93 - 5.25 10*6/?L. The reference range was not used to interpret this result as normal/abnormal . HGB (test code = 13.5 g/dL 11.6-15.0 718-7) HCT (test code = 42.6 % 35.7-45.2 4544-3) MCV (test code = 81.9 fL 80.6-95.5 787-2) MCH (test code = 26.0 pg 25.9-32.8 785-6) MCHC (test code = 31.7 g/dL 31.6-35.1 786-4) RDW-SD (test code = 38.7 fL 39.0-49.9 L 88671-0) RDW-CV (test code = 13.0 % 12.0-15.5 788-0) PLT (test code = 442 See_Comment H [Automated 777-3) message] The sy stem which generated this result transmitted reference range : 166 - 358 10*3/ ?L. The reference r arthur was not used to interpret this result as normal/abnormal . MPV (test code = 10.9 fL 9.5-12.9 29642-4) NRBC/100 WBC (test 0.0 See_Comment [Automat ed code = 4052853828) message] The system which generated this result transmitted reference range : 0.0 - 10.0 /100 WBCs. The refer ence range was not u sed to interpret th is result as normal/abnormal . NRBC x10^3 (test code See_Comment [Auto mated = 6209497813) message] The s ystem which generated this result transmitted reference range : 10*3/?L. The reference range was not used to interpret this result as normal/abnormal . GRAN MAT (NEUT) % 61.3 % (test code = 770-8) IMM GRAN % (test code 0.20 % = 9224822580) LYMPH % (test code = 32.8 % 736-9) MONO % (test code = 4.5 % 5905-5) EOS % (test code = 0.9 % 713-8) BASO % (test code = 0.3 % 706-2) GRAN MAT x10^3(ANC) 6.11 10*3/uL 1.88-7.09 (test code = 9393920402) IMM GRAN x10^3 (test 0.00-0.06 code = 3923297904) LYMPH x10^3 (test code 3.27 10*3/uL 1.32-3.29 = 731-0) MONO x10^3 (test code 0.45 10*3/uL 0.33-0.92 = 742-7) EOS x10^3 (test code = 0.09 10*3/uL 0.03-0.39 711-2) BASO x10^3 (test code 0.03 10*3/uL 0.01-0.07 = 704-7) Lab Interpretation Abnormal (test code = 36603-5) [facility] WITH [id number] 05:35:17 Test Item Value Reference Range Interpretation Comments WBC (test code = 9.97 See_Comment [Automated 3090-2) message] The sy stem which generated this result transmitted reference range : 4.30 - 11.10 10*3/?L. The reference range was not used to interpret this result as normal/abnormal . RBC (test code = 5.20 See_Comment [Automated 569-8) message] The sy stem which generated this result transmitted reference range : 3.93 - 5.25 10*6/?L. The reference range was not used to interpret this result as normal/abnormal . HGB (test code = 13.5 g/dL 11.6-15.0 718-7) HCT (test code = 42.6 % 35.7-45.2 4544-3) MCV (test code = 81.9 fL 80.6-95.5 787-2) MCH (test code = 26.0 pg 25.9-32.8 785-6) MCHC (test code = 31.7 g/dL 31.6-35.1 786-4) RDW-SD (test code = 38.7 fL 39.0-49.9 L 02222-0) RDW-CV (test code = 13.0 % 12.0-15.5 788-0) PLT (test code = 442 See_Comment H [Automated 777-3) message] The sy stem which generated this result transmitted reference range : 166 - 358 10*3/ ?L. The reference r arthur was not used to interpret this result as normal/abnormal . MPV (test code = 10.9 fL 9.5-12.9 22954-8) NRBC/100 WBC (test 0.0 See_Comment [Automat ed code = 9636164654) message] The system which generated this result transmitted reference range : 0.0 - 10.0 /100 WBCs. The refer ence range was not u sed to interpret th is result as normal/abnormal . NRBC x10^3 (test code See_Comment [Auto mated = 5038404090) message] The s ystem which generated this result transmitted reference range : 10*3/?L. The reference range was not used to interpret this result as normal/abnormal . GRAN MAT (NEUT) % 61.3 % (test code = 770-8) IMM GRAN % (test code 0.20 % = 8204257186) LYMPH % (test code = 32.8 % 736-9) MONO % (test code = 4.5 % 5905-5) EOS % (test code = 0.9 % 713-8) BASO % (test code = 0.3 % 706-2) GRAN MAT x10^3(ANC) 6.11 10*3/uL 1.88-7.09 (test code = 4558115386) IMM GRAN x10^3 (test 0.00-0.06 code = 1482314031) LYMPH x10^3 (test code 3.27 10*3/uL 1.32-3.29 = 731-0) MONO x10^3 (test code 0.45 10*3/uL 0.33-0.92 = 742-7) EOS x10^3 (test code = 0.09 10*3/uL 0.03-0.39 711-2) BASO x10^3 (test code 0.03 10*3/uL 0.01-0.07 = 704-7) Lab Interpretation Abnormal (test code = 97236-5) [facility] [id number] 16:35:00 Test Item Value Reference Range Interpretation Comments POCT PREG (test code = 1605) Negative On board controls acceptable with C Yes Line (test code = 3574) POCT PREG LOT # (test code = 3575) POCT PREG TEST DATE (test code = 3576) [facility] [id number] 16:35:00 Test Item Value Reference Range Interpretation Comments POCT PREG (test code = 1605) Negative On board controls acceptable with C Yes Line (test code = 3574) POCT PREG LOT # (test code = 3575) POCT PREG TEST DATE (test code = 3576) [facility] [id number] 15:41:00 Test Item Value Reference Range Interpretation Comments POCT PREG (test code = 1605) Negative On board controls acceptable with C Yes Line (test code = 3574) POCT PREG LOT # (test code = 3575) POCT PREG TEST DATE (test code = 3576) [facility] [id number] 15:41:00 Test Item Value Reference Range Interpretation Comments POCT PREG (test code = 1605) Negative On board controls acceptable with C Yes Line (test code = 3574) POCT PREG LOT # (test code = 3575) POCT PREG TEST DATE (test code = 3576) [facility] [id number] 15:41:00 Test Item Value Reference Range Interpretation Comments POCT PREG (test code = 1605) Negative On board controls acceptable with C Yes Line (test code = 3574) POCT PREG LOT # (test code = 3575) POCT PREG TEST DATE (test code = 3576) [facility] [id number] 15:41:00 Test Item Value Reference Range Interpretation Comments POCT PREG (test code = 1605) Negative On board controls acceptable with C Yes Line (test code = 3574) POCT PREG LOT # (test code = 3575) POCT PREG TEST DATE (test code = 3576) [facility] [id number] 15:41:00 Test Item Value Reference Range Interpretation Comments POCT PREG (test code = 1605) Negative On board controls acceptable with C Yes Line (test code = 3574) POCT PREG LOT # (test code = 3575) POCT PREG TEST DATE (test code = 3576) [facility] 16:42:23 ALCOHOL<10mg/dL03/03/2022 10:42 AM [facility]<10 Oxjmgkoa96-552 Toxic>100 Depression of DEPUTY PROSECUTING ATTORNEY>400 Fatalities ReportedUnPalo Pinto General HospitalBASI METABOLIC PANEL (NA, K, CL, CO2, GLUCOSE, BUN, CREATININE, CA)2022-03-03 16:23:10 Test Item Value Reference Range Interpretation Comments NA (test code = 138 mmol/L 135-145 9972622404) K (test code = 3.9 mmol/L 3.5-5.0 2338154540) CL (test code = 106 mmol/L 98-108 9611756909) CO2 TOTAL (test code 24 mmol/L 23-31 = 6594007855) AGAP (test code = 2-16 8068771270) BUN (test code = 11 mg/dL 7-23 0641070043) GLUCOSE (test code = 95 mg/dL 70-110 6469636637) CREATININE (test code 0.62 mg/dL 0.50-1.04 = 1181656520) CALCIUM (test code = 9.4 mg/dL 8.6-10.6 1227858368) eGFR (test code = mL/min/1.73m2 1456629453) VASHTI (test code = VASHTI) Association of [...] or urine or abnormalities in imaging tests). [facility] WITH [id number] 16:19:13 Test Item Value Reference Range Interpretation Comments WBC (test code = See_Comment [Automated 3833-2) message] The sy stem which generated this result transmitted reference range : 4.30 - 11.10 10*3/?L. The reference range was not used to interpret this result as normal/abnormal . RBC (test code = See_Comment [Automated 921-5) message] The sy stem which generated this [...] (test code = 38.5 fL 39.0-49.9 L 45006-0) RDW-CV (test code = 12.9 % 12.0-15.5 788-0) PLT (test code = See_Comment [Automated 777-3) message] The sy stem which generated this result transmitted reference range : 166 - 358 10*3/ ?L. The reference r arthur was not used to interpret this result as normal/abnormal . MPV (test code = 10.2 fL 9.5-12.9 18698-4) NRBC/100 WBC (test See_Comment [Automat ed code = 0069059085) message] The system which generated this result transmitted reference range : 0.0 - 10.0 /100 WBCs. The refer ence range was not u sed to interpret th is result as normal/abnormal . NRBC x10^3 (test code See_Comment [Auto mated = 4735814784) message] The s ystem which generated this result transmitted reference range : 10*3/?L. The reference range was not used to interpret this result as normal/abnormal . GRAN MAT (NEUT) % 54.2 % (test code = 770-8) IMM GRAN % (test code 0.30 % = 9059894975) LYMPH % (test code = 39.1 % 736-9) MONO % (test code = 5.1 % 5905-5) EOS % (test code = 1.2 % 713-8) BASO % (test code = 0.1 % 706-2) GRAN MAT x10^3(ANC) 3.94 10*3/uL 1.88-7.09 (test code = 0250755024) IMM GRAN x10^3 (test 0.00-0.06 code = 2969931637) LYMPH x10^3 (test code 2.84 10*3/uL 1.32-3.29 = 731-0) MONO x10^3 (test code 0.37 10*3/uL 0.33-0.92 = 742-7) EOS x10^3 (test code = 0.09 10*3/uL 0.03-0.39 711-2) BASO x10^3 (test code 0.01-0.07 = 704-7) Lab Interpretation Abnormal (test code = 63235-1) [facility] [id number] 20:48:00 Test Item Value Reference Range Interpretation Comments POCT PREG (test code = 1605) Negative On board controls acceptable with C Yes Line (test code = 3574) POCT PREG LOT # (test code = 3575) POCT PREG TEST DATE (test code = 3576) [facility] URINALYSIS W SPECIFIC [id number] 22:32:00 Test Item Value Reference Range Interpretation [...] and VASHTI) interpretation of all internal controls [facility] URINALYSIS W SPECIFIC [id number] 22:32:00 Test Item Value Reference Range Interpretation [...] and VASHTI) interpretation of all internal controls [facility] [id number] 15:36:00 Test Item Value Reference Range Interpretation Comments POCT PREG (test code = 1605) Negative On board controls acceptable with C Yes Line (test code = 3574) POCT PREG LOT # (test code = 3575) POCT PREG TEST DATE (test code = 3576) [facility] Notes Date/Time Note Provider Source 2022-12-05 10:12:02 [id number]:12:02Formatting of this [facility] note might be different from the original.Called to speak with Eliezer in [place]. They state they did not ever get the prescription. Contacted the patient and she also has not received the prescription. She is requesting they be resent to [facility] in [place]. Re-ordered original prescription and sent to [facility] per patient request. 44748-1Fixfxbstc encounter [id number]:14:39Telephone encounter NoteTXT1.2.840.709482.1.13.104.2.7.2.7 51863|[id number] for patient nsed73184-5KcgtDOOTINPTDE[address] Mz[id number] OSFRYZLHVQRCVTCOVEQB7985-93-38W31:14:3 91.2.840.706439.1.72.3.15|1.2.840.1143 50.1.13.104.2.7.2.727879_[id number] 2022-12-04 18:01:37 5052-54-52S62:01:37Formatting of this Radha Mcleod [facility] note might be different from the original.Thao Campos is a 27 year old femaleT[facility] are wanting the prescriptions transferred. Please advise azelastine 137 mcg (0.1 %) nasal mabxjzrvtgcrfjhagtiu-tbncpqbbmrtqyfd-Q M (BROMFED DM) 2-30-10 mg/5 mL syrupfluticasone propionate 50 mcg/actuation nasal spraymethylPREDNISolone (MEDROL, KRISTA,) 4 mg tablets[facility] [place], [place] - [address] [place] [address] AT [facility] & [address] [address]Xwnuz: [phone] Xhyfvaisgzasjf signed by Nate Mcleod at 12/04/2022 6:02 PM MWV22432-4Zrvjuvvmu encounter TrvoIP3531-83-94J22:02:30Telephone encounter NoteTXT1.2.840.844501.1.13.104.2.7.2.7 96888|[id number] for patient [id number] [address] XliwWqhmi[id number] ZVSMCOXYAQSCJIVMBWXP6577-01-32E42:02:3 01.2.840.087747.1.72.3.15|1.2.840.1143 50.1.13.104.2.7.2.727879_[id number]"
--- NOTE | 2023-02-15 21:58 | ER ---
Nurse's Notes [facility] Name: Thao Lang Age: 28 yrs Sex: Female : 1995 Arrival Date: 02/15/2023 Time: 19:40 Bed 11 Private MD: Diagnosis: Acute pharyngitis, unspecified Presentation: 02/15 20:03 Chief complaint: Patient states: Sore throat and fever onset 8 days ago. Pt states that cm10 she was at work today and it got worse. 20:03 Coronavirus screen: Vaccine status: Patient reports receiving the 2nd dose of the covid cm10 vaccine. Client denies travel out of the [place] in the last 14 days. Ebola Screen: Patient denies travel to an Ebola-affected area in the 21 days before illness onset. No symptoms or risks identified at this time. Initial Sepsis Screen: Does the patient meet any 2 criteria? No. Patient's initial sepsis screen is negative. Does the patient have a suspected source of infection? No. Patient's initial sepsis screen is negative. Risk Assessment: Do you want to hurt yourself or someone else? Patient reports no desire to harm self or others. Onset of symptoms was February 15, 2023. 20:03 Method Of Arrival: Ambulatory cm10 20:03 Acuity: IZABELLA 4 cm10 Historical: - Allergies: 20:05 No Known Allergies; cm10 - PMHx: 20:05 Asthma; cm10 - Immunization history:: Adult Immunizations unknown. - Social history:: Smoking status: Patient denies any tobacco usage or history of. Screenin:22 [facility] ED Fall Risk Assessment (Adult) History of falling in the last 3 months, rv including since admission Score/Fall Risk Level 0 - 2 = Low Risk Oriented to surroundings, Maintained a safe environment, Educated pt \T\ family on fall prevention, incl call for assistance when getting out of bed. Abuse screen: Denies threats or abuse. Denies injuries from another. Nutritional screening: No deficits noted. Tuberculosis screening: No symptoms or risk factors identified. Assessment: 21:22 General: Appears comfortable, Behavior is calm, cooperative. Pain: Complains of pain in rv throat. Neuro: Level of Consciousness is awake, alert, obeys commands, Oriented to person, place, time, situation. Cardiovascular: Capillary refill < 3 seconds Patient's skin is warm and dry. Respiratory: Airway is patent Respiratory effort is even, unlabored, Breath sounds are clear bilaterally. EENT: Throat is reddened. Vital Signs: 20:03 BP 131 / 88; Pulse 80; Resp 18; Temp 97.5; Pulse Ox 96% on R/A; Weight 124.74 kg; cm10 Height 5 ft. 4 in. ; Pain 8/10; 20:03 Body Mass Index 47.20 (124.74 kg, 162.56 cm) cm10 20:03 Pain Scale: Adult cm10 ED Course: 19:49 Patient arrived in ED. gm2 19:50 Earl Geiger DO is Attending Physician. ms3 20:04 Triage completed. cm10 20:05 Arm band placed on Patient placed in an exam room, on a stretcher. cm10 21:11 Attending Physician role handed off by Earl Geiger DO ms3 21:11 Delta Patel MD is Attending Physician. ms3 21:22 Patient has correct armband on for positive identification. Client placed on continuous rv cardiac and pulse oximetry monitoring. NIBP monitoring applied. 21:22 No provider procedures requiring assistance completed. Patient did not have IV access rv during this emergency room visit. 22:14 Travis Rodriguez RN is Primary Nurse. rv Administered Medications: No medications were administered Medication: 21:22 VIS not applicable for this client. rv Outcome: 21:58 Discharge ordered by . rn 22:14 Discharged to home ambulatory, rv 22:14 Condition: good 22:14 Discharge instructions given to patient, Instructed on discharge instructions, follow up and referral plans. Demonstrated understanding of instructions, follow-up care, medications, Prescriptions given X 1, 22:15 Patient left the ED. rv Signatures: Delta Patel MD MD rn Vicente, Ronaldo, RN RN rv Earl Geiger DO DO ms3 Estrella Armando RN RN Denise Rosenbaum gm2
--- NOTE | 2023-02-15 21:58 | EDPHYS ---
Physician Documentation [facility] Name: Thao Lang Age: 28 yrs Sex: Female : 1995 Arrival Date: 02/15/2023 Time: 19:40 Bed 11 Private MD: ED Physician Delta Patel HPI: 02/15 20:04 This 28 yrs old Female presents to ER via Unassigned with complaints of Sore ms3 Throat, Fever. 20:04 28-year-old female with no past medical history presents to the emergency department ms3 for sore throat that has been ongoing for 2 to 3 months. Patient states her pain became worse today while at the gym. Patient denies difficulty swallowing. Patient endorses cough. Patient denies fevers or chills.. Historical: - Allergies: 20:05 No Known Allergies; cm10 - PMHx: 20:05 Asthma; cm10 - Immunization history:: Adult Immunizations unknown. - Social history:: Smoking status: Patient denies any tobacco usage or history of. ROS: 20:04 Constitutional: Negative for fever, and chills. Neck: Negative for injury, pain, and ms3 swelling, Cardiovascular: Negative for chest pain, and palpitations. Respiratory: Negative for shortness of breath, cough, wheezing, and pleuritic chest pain, 20:04 MS/Extremity: Negative for injury and deformity, Skin: Negative for injury, rash, and discoloration, 20:04 ENT: Positive for sore throat, 20:04 All other systems are negative, Exam: 20:04 Constitutional: This is a well developed, well nourished patient who is awake, alert, ms3 and in no acute distress. Head/Face: Normocephalic, atraumatic. 20:04 Chest/axilla: Normal chest wall appearance and motion. Nontender with no deformity. Cardiovascular: Regular rate and rhythm with a normal S1 and S2. No gallops, murmurs, or rubs. Normal PMI, no JVD. No pulse deficits. Respiratory: Lungs have equal breath sounds bilaterally, clear to auscultation and percussion. No rales, rhonchi or wheezes noted. No increased work of breathing, no retractions or nasal flaring. Abdomen/GI: Soft, non-tender, with normal bowel sounds. No distension or tympany. No guarding or rebound. No evidence of tenderness throughout. Skin: Warm, dry with normal turgor. Normal color with no rashes, no lesions, and no evidence of cellulitis. 20:04 ENT: Posterior pharynx: swelling, is not appreciated, erythema, that is mild, exudate, is not appreciated, peritonsillar mass, is not appreciated, pooling of secretions, is not appreciated, PND, Vital Signs: 20:03 BP 131 / 88; Pulse 80; Resp 18; Temp 97.5; Pulse Ox 96% on R/A; Weight 124.74 kg; cm10 Height 5 ft. 4 in. ; Pain 8/10; 20:03 Body Mass Index 47.20 (124.74 kg, 162.56 cm) cm10 20:03 Pain Scale: Adult cm10 MDM: 20:04 Differential diagnosis: upper respiratory infection, viral syndrome Strep Pharyngitis. ms3 20:07 Patient medically screened. ms3 21:11 Transition of care: After a detail discussion of the patient's case, care is ms3 transferred to Delta Patel MD. 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 Counseling: I had a detailed discussion with the patient and/or guardian regarding the historical points, exam findings, and any diagnostic results supporting the discharge/admit diagnosis, lab results, the need for outpatient follow up, to return to the emergency department if symptoms worsen or persist or if there are any questions or concerns that arise at home. Special discussion: I discussed with the patient/guardian in detail that at this point there is no indication for admission to the hospital. It is understood, however, that if the symptoms persist or worsen the patient needs to return immediately for re-evaluation. 02/15 20:40 Order name: Group A Streptococcus Rapid Sc EDMS 02/15 20:52 Order name: Throat Culture EDMS Administered Medications: No medications were administered Disposition Summary: 02/15/23 21:58 Discharge Ordered Notes: Location: Home rn Problem: new rn Symptoms: have improved rn Condition: Stable rn Diagnosis - Acute pharyngitis, unspecified rn Followup: rn - With: Private Physician - When: As needed - Reason: Recheck today's complaints, Re-evaluation by your physician Discharge Instructions: - Discharge Summary Sheet rn - Pharyngitis rn Forms: - Medication Reconciliation Form rn - Thank You Letter rn - 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 Day 2, 3, 4 , 5 take one (1) tablet once daily.; 6 tablet; Refills: 0, Product Selection Permitted Signatures: Dispatcher [employer] EDMS Delta Patel MD MD rn Sims, Marcus, DO DO ms3 Estrella Armando RN RN cm10 Corrections: (The following items were deleted from the chart) 20:53 20:53 Group A Streptococcus Rapid [id number] ordered. EDMS EDMS
[2023-02-15 22:37] VITALS: BP 131/88; TEMP 97.5; O2SAT 96
== END 2023-02-15 22:15 | disposition home or self-care (01) ==
LOC: ER 19:40
DX: J02.9 Acute pharyngitis, unspecified (principal)
CPT/HCPCS: 87070; 87081; 99283

== ENCOUNTER → 2023-06-03 | Emergency (ER) | payer SELFPAY ==
--- OUTSIDE RECORDS SUMMARY | 2023-06-03 13:07 | XMS REPORT | Continuity of Care Document ---
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 Role Phone ESTEVAN ADAMS Primary Care Physician OMKAR Sierra Attending Clinician OMKAR Bender Attending Clinician JULISSA Marti Attending Clinician Unavailable JENNIFER PURI Attending Clinician Unavaila ESTEVAN Hills Attending Clinician Unavail able GC_GCBZW_Kadiyala_S Attending Clinician Unavaila lisa Adams Estevan SCHAEFFER Attending Clinician + Jessika Manrique MD Attending Clinician [phone] JESSIKA MANRIQUE Attending Clinician Unavailable Unknown, Attending Attending Clinician Unavailab Jennifer Simpson CNM Attending Clinician [phone] Doctor Unassigned, Melody Hill Attending Clinician U SIRIA Dugan Attending Clinician Unavailab TIANA Argueta Attending Clinician Unavailable Tiana Antonio MD Attending Clinician [phone] Visit, [facility] Nurse Attending Clinician Siria Miller Attending Clinician + [phone] Maisha West RN Attending Clinician Unavailable PREZAS, EASTON Attending Clinician Unavailable Nurse, Naun Rmchp Exp Cprit Obgyn Attending Clini luis felipe Unavailable JODEE ALMAZAN Attending Clinician Unavailable Tha MARC, Jodee Suarez Attending Clinician [phone] Zbigniew Fernandez MD Attending Clinician + [phone] Mariluz MARC, Glen Attending Clinician [phone] Marlon MARC, Leonel Attending Clinician [phone] Ultrasound, Naun-Mfm Attending Clinician Unavaila Katelyn Hutchinson MD Attending Clinician + [phone] KATELYN CRUZ Attending Clinician Unavailable KATELYN CRUZ Attending Clinician Unavailable Lab, Ang-Rmchp Attending Clinician Unavailable Yelena Aaron SCHAEFFER Attending Clinician + AARON ALICEA Attending Clinician Unavail able Provider, [facility] Temp Attending Clinician Dalila vailable Jori MARC, Silvana Attending Clinician [phone] SILVANA VENEGAS Attending Clinician Unavailable SILVANA VENEGAS Attending Clinician Unavailable Sukhjinder RAMÍREZP, Bo Hunt Attending Clinician [phone] BO RIVERA Attending Clinician Unavailyahaira Adhikari CONTINUOUS IMPROVEMENT BLACK BELT, Nguyễn Attending Clinician [phone] AMAYA PEÑA Attending Clinician Unavailable Casey RAMÍREZP, Amaya Attending Clinician [phone] Palmira Phillips Attending Clinician Unavailyahaira Escoto MD, Yair Borjas Attending Clinician [phone] Sherman MARC, Gianni Chou Attending Clinician [phone] Robbie Wolfe MD, Cristin Attending Clinician + Julissa Michele MD Attending Clinician +[phone] Reji Cruz DO Attending Clinician [phone] Seth CONTINUOUS IMPROVEMENT BLACK BELT, Emma Attending Clinician + [phone] Zoe Toledo MD Attending Clinician + [phone] Provider, [facility] Attending Clinician Un available Bony RAMÍREZP, Saadia Attending Clinician SAADIA LOVETT Attending Clinician Unavailable Dealno Islas Attending Clinician [phone] DELANO NELSON Attending Clinician UnavailYOVANY Barnhart Attending Clinician Unavailable JAIME CLEMENT Attending Clinician Unavailable GC_GCBZW_Kadiyala_S Admitting Clinician UnavailJODEE León Admitting Clinician Unavailable Jodee Almazan MD Admitting Clinician [phone] Julissa Michele MD Admitting Clinician [phone] Payers Payer Name Policy Type Policy Number Effective Date Expirati on Date Source [employer] [place] [employer] [id number] 2016 00:00:00 [place] [employer] [id number] 2022 00:00:00 MEDICAID PENDING PENDING 2020 00:00:00 Problems Condition Name Condition Details Condition Category Status Onset Date Resolution Date Last Treatment Date Treating Clinician Comments Source Presence of intrauteri ne contracept yamila device Presence of intrauteri ne contracept yamila device Disease Active 7-13 00:00: 00 [facility] History of abnormal cervical Pap smear History of abnormal cervical Pap smear Disease Active 7- 00:00: 00 Overview: Formattin g of this note might be different from the original. 09/2020 LGSIL [facility] Folliculit is Folliculit is Disease Active 4-12 00:00: 00 [facility] Flu vaccine need Flu vaccine need Disease Active 3-30 00:00: 00 [facility] Vaginal lesion Vaginal lesion Disease Active 3-30 00:00: 00 [facility] Research study patient Research study patient Disease Active 2-16 00:00: 00 Overview: Formattin g of this note might be different from the original. PACT (fellow) [facility] Elevated blood-pres sure reading, without diagnosis of hypertensi on Elevated blood-pres sure reading, without diagnosis of hypertensi on Disease Active 2-15 00:00: 00 [facility] COVID COVID Disease Active 2-01 00:00: 00 [facility] GBS (group B Streptococ cus carrier), +RV culture, currently GBS (group B Streptococ cus carrier), +RV culture, currently Disease Active 1-27 00:00: 00 Overview: Formattin g of this note might be different from the original. Address in labor and delivery. [facility] Upper respirator y symptom Upper respirator y symptom Disease Active 1-18 00:00: 00 [facility] Anemia of mother in , antepartum Anemia of mother in , antepartum Disease Active 2020-03 2-16 00:00: 00 [facility] Abnormal quad screen Abnormal quad screen Disease Active 2020-03 2-16 00:00: 00 [facility] Abnormal glandular Papanicola ou smear of cervix Abnormal glandular Papanicola ou smear of cervix Disease Active 8-04 00:00: 00 Overview: Formattin g of this note might be different from the original. LGSIL on 2020 pap smear, needs repeat in 12 months [facility] Supervisio n of high risk in third trimester Supervisio n of high risk in third trimester Disease Active 10-10 00:00: 00 [facility] SAB (spontaneo us ) SAB (spontaneo us ) Disease Active 7 00:00: 00 [facility] in first trimester with history of ectopic in first trimester with history of ectopic Disease Active 10-10 00:00: 00 [facility] Primigravi da in third trimester Primigravi da in third trimester Disease Active 10-10 00:00: 00 [facility] BMI 45.0-49.9, adult BMI 45.0-49.9, adult Disease Active 719 00:00: 00 [facility] History of ectopic History of ectopic Disease Active 4-02 00:00: 00 [facility] Screening examinatio n for STD (sexually transmitte d disease) Screening examinatio n for STD (sexually transmitte d disease) Disease Active 2-16 00:00: 00 [facility] Morbid obesity Morbid obesity Disease Active 1-06 00:00: 00 [facility] Allergies, Adverse Reactions, Alerts Allergy Name Allergy Type Status Severity Reaction(s) Onset Date Inactive Date Treating Clinician Comments Source NO KNOWN ALLERGIE S Drug Class Active [facility] Social History Social Habit Start Date Stop Date Quantity Comments Source History SDOH Alcohol Frequency [facility] History SDOH Alcohol Std Drinks [facility] History SDOH Alcohol Binge [facility] Gender identity Univ ersity [facility] Alcohol intake 2022-12-02 00:00:00 2022-12-02 00:00:00 Current drinker of alcohol (finding) [facility] History of Social function 2022-12-02 00:00:00 2022-12-02 00:00:00 [facility] Alcohol Comment 2022-10-02 00:00:00 2022-10-02 00:00:00 occasional [facility] Exposure to SARS-CoV-2 (event) 2022-04-20 00:00:00 2022-04-30 10:31:00 Not sure [facility] Tobacco use and exposure 2021-12-06 00:00:00 2021-12-06 00:00:00 Smokeless tobacco non-user [facility] Sex Assigned At 1995 00:00:00 1995 00:00:00 [facility] Smoking Status Start Date Stop Date Source Never smoked tobacco [facility] Medications Ordered Medication Name Filled Medication Name Start Date Stop Date Current Medication? Ordering Clinician Indication Dosage Frequency Signature (SIG) Comments Components Source azelastine 137 mcg (0.1 %) nasal spray 12-05 00:00: 00 Yes [id number] 1{spray } Use 1 [place] in each nostril in the morning and 1 [place] in the evening. Use in each nostril as directed [facility] bromphenira mine-pseudo ephedrine-D M (BROMFED DM) 2-30-10 mg/5 mL syrup 12-05 00:00: 00 Yes [id number] 10mL Take 10 mL by mouth 4 (four) times daily as needed for Congestion /Allergies , Cough or Cold symptoms. [facility] fluticasone propionate 50 mcg/actuati on nasal spray 12-05 00:00: 00 Yes [id number] 1{spray } Use 1 [place] in each nostril in the morning. [facility] methylPREDN ISolone (MEDROL, KRISTA,) 4 mg tablets 12-05 00:00: 00 Yes [id number] Take by mouth SEE-INSTRU CTIONS. follow package directions [facility] azelastine 137 mcg (0.1 %) nasal spray 12-05 00:00: 00 Yes [id number] 1{spray } Use 1 [place] in each nostril in the morning and 1 [place] in the evening. Use in each nostril as directed [facility] bromphenira mine-pseudo ephedrine-D M (BROMFED DM) 2-30-10 mg/5 mL syrup 12-05 00:00: 00 Yes [id number] 10mL Take 10 mL by mouth 4 (four) times daily as needed for Congestion /Allergies , Cough or Cold symptoms. [facility] fluticasone propionate 50 mcg/actuati on nasal spray 12-05 00:00: 00 Yes [id number] 1{spray } Use 1 [place] in each nostril in the morning. [facility] methylPREDN ISolone (MEDROL, KRISTA,) 4 mg tablets 12-05 00:00: 00 Yes [id number] Take by mouth SEE-INSTRU CTIONS. follow package directions [facility] bromphenira mine-pseudo ephedrine-D M (BROMFED DM) 2-30-10 mg/5 mL syrup 12-02 00:00: 00 Yes [id number] 10mL Take 10 mL by mouth 4 (four) times daily as needed for Congestion /Allergies , Cough or Cold symptoms. [facility] azelastine 137 mcg (0.1 %) nasal spray 12-02 00:00: 00 Yes [id number] 1{spray } Use 1 [place] in each nostril in the morning and 1 [place] in the evening. Use in each nostril as directed [facility] fluticasone propionate 50 mcg/actuati on nasal spray 12-02 00:00: 00 Yes [id number] 1{spray } Use 1 [place] in each nostril in the morning. [facility] methylPREDN ISolone (MEDROL, KRISTA,) 4 mg tablets 12-02 00:00: 00 Yes [id number] Take by mouth SEE-INSTRU CTIONS. follow package directions [facility] bromphenira mine-pseudo ephedrine-D M (BROMFED DM) 2-30-10 mg/5 mL syrup 12-02 00:00: 00 12-05 00:00 :00 No [id number] 10mL Take 10 mL by mouth 4 (four) times daily as needed for Congestion /Allergies , Cough or Cold symptoms. [facility] azelastine 137 mcg (0.1 %) nasal spray 12-02 00:00: 00 12-05 00:00 :00 No [id number] 1{spray } Use 1 [place] in each nostril in the morning and 1 [place] in the evening. Use in each nostril as directed [facility] fluticasone propionate 50 mcg/actuati on nasal spray 12-02 00:00: 00 12-05 00:00 :00 No [id number] 1{spray } Use 1 [place] in each nostril in the morning. [facility] methylPREDN ISolone (MEDROL, KRISTA,) 4 mg tablets 12-02 00:00: 00 12-05 00:00 :00 No [id number] Take by mouth SEE-INSTRU CTIONS. follow package directions [facility] metroNIDAZO LE 500 mg tablet 10-04 00:00: 00 10-05 04:59 :00 No [id number] 2000mg Take 4 tablets by mouth once now for 1 dose. [facility] copper (PARAGARD T 380A) IUD 1 Intra Uterine Device 2-06 17:45: 00 04-30 17:01 :00 No [id number] 1{IUD} [facility] copper (PARAGARD T 380A) IUD 1 Intra Uterine Device 2-06 17:45: 00 04-30 17:01 :00 No [id number] 1{IUD} 1 Intra Uterine Device, Intrauteri ne, ONCE, 1 dose, On Sat04/30/22 at 1145, Routine [facility] copper (PARAGARD T 380A) IUD 1 Intra Uterine Device 2- 17:45: 00 04-30 17:01 :00 No [id number] 1{IUD} [facility] copper (PARAGARD T 380A) IUD 1 Intra Uterine Device 2- 17:45: 00 04-30 17:01 :00 No [id number] 1{IUD} 1 Intra Uterine Device, Intrauteri ne, ONCE, 1 dose, On Sat04/30/22 at 1145, Routine [facility] amoxicillin -clavulanat e (AUGMENTIN) 875-125 mg per tablet 2021-03 00:00: 00 02-01 05:59 :00 No [id number] 1{tbl} Take 1 tablet by mouth in the morning and 1 tablet in the evening. Do all this for 7 days. [facility] amoxicillin -clavulanat e (AUGMENTIN) 875-125 mg per tablet 2021-03 00:00: 00 02-01 05:59 :00 No [id number] 1{tbl} Take 1 tablet by mouth in the morning and 1 tablet in the evening. Do all this for 7 days. [facility] phenazopyri dine 100 mg tablet 2021-03 00:00: 00 01-27 04:59 :00 No [id number] 200mg Take 2 tablets by mouth in the morning and 2 tablets at noon and 2 tablets in the evening. Do all this for 2 days. [facility] phenazopyri dine 100 mg tablet 2021-03 00:00: 00 01-27 04:59 :00 No [id number] 200mg Take 2 tablets by mouth in the morning and 2 tablets at noon and 2 tablets in the evening. Do all this for 2 days. [facility] levonorgest rel-ethinyl estradiol (SRONYX) 0.1-20 mg-mcg per tablet 12-06 00:00: 00 Yes [id number] 1{tbl} Take 1 tablet by mouth in the morning. [facility] levonorgest rel-ethinyl estradiol (SRONYX) 0.1-20 mg-mcg per tablet 12-06 00:00: 00 Yes [id number] 1{tbl} Take 1 tablet by mouth in the morning. [facility] levonorgest rel-ethinyl estradiol (SRONYX) 0.1-20 mg-mcg per tablet 12-06 00:00: 00 Yes [id number] 1{tbl} Take 1 tablet by mouth in the morning. [facility] levonorgest rel-ethinyl estradiol (SRONYX) 0.1-20 mg-mcg per tablet 12-06 00:00: 00 Yes [id number] 1{tbl} Take 1 tablet by mouth in the morning. [facility] levonorgest rel-ethinyl estradiol (SRONYX) 0.1-20 mg-mcg per tablet 12-06 00:00: 00 Yes [id number] 1{tbl} Take 1 tablet by mouth in the morning. [facility] levonorgest rel-ethinyl estradiol (SRONYX) 0.1-20 mg-mcg per tablet 12-06 00:00: 00 Yes [id number] 1{tbl} Take 1 tablet by mouth in the morning. [facility] levonorgest rel-ethinyl estradiol (SRONYX) 0.1-20 mg-mcg per tablet 12-06 00:00: 00 Yes [id number] 1{tbl} Take 1 tablet by mouth in the morning. [facility] levonorgest rel-ethinyl estradiol (SRONYX) 0.1-20 mg-mcg per tablet 12-06 00:00: 00 Yes [id number] 1{tbl} Take 1 tablet by mouth in the morning. [facility] levonorgest rel-ethinyl estradiol (SRONYX) 0.1-20 mg-mcg per tablet 12-06 00:00: 00 Yes [id number] 1{tbl} Take 1 tablet by mouth in the morning. [facility] levonorgest rel-ethinyl estradiol (SRONYX) 0.1-20 mg-mcg per tablet 12-06 00:00: 00 Yes [id number] 1{tbl} Take 1 tablet by mouth in the morning. [facility] levonorgest rel-ethinyl estradiol (SRONYX) 0.1-20 mg-mcg per tablet 12-06 00:00: 00 Yes [id number] 1{tbl} Take 1 tablet by mouth in the morning. [facility] levonorgest rel-ethinyl estradiol (SRONYX) 0.1-20 mg-mcg per tablet 12-06 00:00: 00 Yes [id number] 1{tbl} Take 1 tablet by mouth in the morning. [facility] levonorgest rel-ethinyl estradiol (SRONYX) 0.1-20 mg-mcg per tablet 12-06 00:00: 00 Yes [id number] 1{tbl} Take 1 tablet by mouth in the morning. [facility] levonorgest rel-ethinyl estradiol (SRONYX) 0.1-20 mg-mcg per tablet 12-06 00:00: 00 Yes [id number] 1{tbl} Take 1 tablet by mouth in the morning. [facility] levonorgest rel-ethinyl estradiol (SRONYX) 0.1-20 mg-mcg per tablet 12-06 00:00: 00 Yes [id number] 1{tbl} Take 1 tablet by mouth in the morning. [facility] levonorgest rel-ethinyl estradiol (SRONYX) 0.1-20 mg-mcg per tablet 12-06 00:00: 00 Yes [id number] 1{tbl} Take 1 tablet by mouth in the morning. [facility] levonorgest rel-ethinyl estradiol (SRONYX) 0.1-20 mg-mcg per tablet 12-06 00:00: 00 Yes [id number] 1{tbl} Take 1 tablet by mouth in the morning. [facility] levonorgest rel-ethinyl estradiol (SRONYX) 0.1-20 mg-mcg per tablet 12-06 00:00: 00 Yes [id number] 1{tbl} Take 1 tablet by mouth in the morning. [facility] levonorgest rel-ethinyl estradiol (SRONYX) 0.1-20 mg-mcg per tablet 12-06 00:00: 00 Yes [id number] 1{tbl} Take 1 tablet by mouth in the morning. [facility] levonorgest rel-ethinyl estradiol (SRONYX) 0.1-20 mg-mcg per tablet 12-06 00:00: 00 Yes [id number] 1{tbl} Take 1 tablet by mouth in the morning. [facility] levonorgest rel-ethinyl estradiol (SRONYX) 0.1-20 mg-mcg per tablet 12-06 00:00: 00 Yes [id number] 1{tbl} Take 1 tablet by mouth in the morning. [facility] levonorgest rel-ethinyl estradiol (SRONYX) 0.1-20 mg-mcg per tablet 12-06 00:00: 00 Yes [id number] 1{tbl} Take 1 tablet by mouth in the morning. [facility] levonorgest rel-ethinyl estradiol (SRONYX) 0.1-20 mg-mcg per tablet 2022-0 9-14 00:00: 00 10-02 00:00 :00 No [id number] 1{tbl} Take 1 tablet by mouth in the morning. [facility] levonorgest rel-ethinyl estradiol (SRONYX) 0.1-20 mg-mcg per tablet -14 00:00: 00 10-02 00:00 :00 No [id number] 1{tbl} Take 1 tablet by mouth in the morning. [facility] ondansetron 4 mg disintegrat ing tablet 07-03 00:00: 00 Yes [id number] 4mg Take 1 tablet by mouth every 8 (eight) hours as needed for Nausea and Vomiting (N/V). [facility] ondansetron 4 mg disintegrat ing tablet 07-03 00:00: 00 Yes [id number] 4mg Take 1 tablet by mouth every 8 (eight) hours as needed for Nausea and Vomiting (N/V). [facility] ondansetron 4 mg disintegrat ing tablet 07-03 00:00: 00 Yes [id number] 4mg Take 1 tablet by mouth every 8 (eight) hours as needed for Nausea and Vomiting (N/V). [facility] ondansetron 4 mg disintegrat ing tablet 07-03 00:00: 00 Yes [id number] 4mg Take 1 tablet by mouth every 8 (eight) hours as needed for Nausea and Vomiting (N/V). [facility] ondansetron 4 mg disintegrat ing tablet 07-03 00:00: 00 Yes [id number] 4mg Take 1 tablet by mouth every 8 (eight) hours as needed for Nausea and Vomiting (N/V). [facility] ondansetron 4 mg disintegrat ing tablet 07-03 00:00: 00 Yes [id number] 4mg Take 1 tablet by mouth every 8 (eight) hours as needed for Nausea and Vomiting (N/V). [facility] ondansetron 4 mg disintegrat ing tablet 07-03 00:00: 00 Yes [id number] 4mg Take 1 tablet by mouth every 8 (eight) hours as needed for Nausea and Vomiting (N/V). [facility] ondansetron 4 mg disintegrat ing tablet 2021-0 4-11 00:00: 00 Yes [id number] 4mg Take 1 tablet by mouth every 8 (eight) hours as needed for Nausea and Vomiting (N/V). [facility] ondansetron 4 mg disintegrat ing tablet 2021-0 4-11 00:00: 00 Yes [id number] 4mg Take 1 tablet by mouth every 8 (eight) hours as needed for Nausea and Vomiting (N/V). [facility] ondansetron 4 mg disintegrat ing tablet 2021-0 4-11 00:00: 00 Yes [id number] 4mg Take 1 tablet by mouth every 8 (eight) hours as needed for Nausea and Vomiting (N/V). [facility] ondansetron 4 mg disintegrat ing tablet 2021-0 -11 00:00: 00 Yes [id number] 4mg Take 1 tablet by mouth every 8 (eight) hours as needed for Nausea and Vomiting (N/V). [facility] ondansetron 4 mg disintegrat ing tablet 2021-0 -11 00:00: 00 Yes [id number] 4mg Take 1 tablet by mouth every 8 (eight) hours as needed for Nausea and Vomiting (N/V). [facility] ondansetron 4 mg disintegrat ing tablet 2021-0 4-11 00:00: 00 Yes [id number] 4mg Take 1 tablet by mouth every 8 (eight) hours as needed for Nausea and Vomiting (N/V). [facility] ondansetron 4 mg disintegrat ing tablet 2021-0 4-11 00:00: 00 Yes [id number] 4mg Take 1 tablet by mouth every 8 (eight) hours as needed for Nausea and Vomiting (N/V). [facility] ondansetron 4 mg disintegrat ing tablet 2021-0 4-11 00:00: 00 Yes [id number] 4mg Take 1 tablet by mouth every 8 (eight) hours as needed for Nausea and Vomiting (N/V). [facility] ondansetron 4 mg disintegrat ing tablet 2-0 4-11 00:00: 00 Yes [id number] 4mg Take 1 tablet by mouth every 8 (eight) hours as needed for Nausea and Vomiting (N/V). [facility] ondansetron 4 mg disintegrat ing tablet 0 07-03 00:00: 00 Yes [id number] 4mg Take 1 tablet by mouth every 8 (eight) hours as needed for Nausea and Vomiting (N/V). [facility] ondansetron 4 mg disintegrat ing tablet 0 07-03 00:00: 00 Yes [id number] 4mg Take 1 tablet by mouth every 8 (eight) hours as needed for Nausea and Vomiting (N/V). [facility] ondansetron 4 mg disintegrat ing tablet 0 07-03 00:00: 00 Yes [id number] 4mg Take 1 tablet by mouth every 8 (eight) hours as needed for Nausea and Vomiting (N/V). [facility] ondansetron 4 mg disintegrat ing tablet 0 07-03 00:00: 00 Yes [id number] 4mg Take 1 tablet by mouth every 8 (eight) hours as needed for Nausea and Vomiting (N/V). [facility] ondansetron 4 mg disintegrat ing tablet 0 07-03 00:00: 00 Yes [id number] 4mg Take 1 tablet by mouth every 8 (eight) hours as needed for Nausea and Vomiting (N/V). [facility] ondansetron 4 mg disintegrat ing tablet 0 07-03 00:00: 00 Yes [id number] 4mg Take 1 tablet by mouth every 8 (eight) hours as needed for Nausea and Vomiting (N/V). [facility] ondansetron 4 mg disintegrat ing tablet 0 07-03 00:00: 00 10-02 00:00 :00 No [id number] 4mg Take 1 tablet by mouth every 8 (eight) hours as needed for Nausea and Vomiting (N/V). [facility] ondansetron 4 mg disintegrat ing tablet 2021-0 411 00:00: 00 10-02 00:00 :00 No [id number] 4mg Take 1 tablet by mouth every 8 (eight) hours as needed for Nausea and Vomiting (N/V). [facility] norethindro ne 0.35 mg tablet 2021-0 330 00:00: 00 Yes [id number] 1{tbl} Take 1 tablet by mouth daily. [facility] norethindro ne 0.35 mg tablet 2021-0 330 00:00: 00 Yes [id number] 1{tbl} Take 1 tablet by mouth daily. [facility] norethindro ne 0.35 mg tablet 2021-0 06-21 00:00: 00 Yes [id number] 1{tbl} Take 1 tablet by mouth daily. [facility] norethindro ne 0.35 mg tablet 2021-0 06-21 00:00: 00 Yes [id number] 1{tbl} Take 1 tablet by mouth daily. [facility] norethindro ne 0.35 mg tablet 2021-0 06-21 00:00: 00 Yes [id number] 1{tbl} Take 1 tablet by mouth daily. [facility] norethindro ne 0.35 mg tablet 2021-0 06-21 00:00: 00 Yes [id number] 1{tbl} Take 1 tablet by mouth daily. [facility] norethindro ne 0.35 mg tablet 2021-0 06-21 00:00: 00 Yes [id number] 1{tbl} Take 1 tablet by mouth daily. [facility] norethindro ne 0.35 mg tablet 2021-0 30 00:00: 00 Yes [id number] 1{tbl} Take 1 tablet by mouth daily. [facility] norethindro ne 0.35 mg tablet 2-0 30 00:00: 00 Yes [id number] 1{tbl} Take 1 tablet by mouth daily. [facility] norethindro ne 0.35 mg tablet 2021-0 330 00:00: 00 Yes [id number] 1{tbl} Take 1 tablet by mouth daily. [facility] norethindro ne 0.35 mg tablet 0 3-30 00:00: 00 Yes [id number] 1{tbl} Take 1 tablet by mouth daily. [facility] norethindro ne 0.35 mg tablet 06-21 00:00: 00 Yes [id number] 1{tbl} Take 1 tablet by mouth daily. [facility] norethindro ne 0.35 mg tablet 06-21 00:00: 00 Yes [id number] 1{tbl} Take 1 tablet by mouth daily. [facility] norethindro ne 0.35 mg tablet 2021-0 06-21 00:00: 00 Yes [id number] 1{tbl} Take 1 tablet by mouth daily. [facility] norethindro ne 0.35 mg tablet 06-21 00:00: 00 Yes [id number] 1{tbl} Take 1 tablet by mouth daily. [facility] norethindro ne 0.35 mg tablet 06-21 00:00: 00 Yes [id number] 1{tbl} Take 1 tablet by mouth daily. [facility] norethindro ne 0.35 mg tablet 0 06-21 00:00: 00 Yes [id number] 1{tbl} Take 1 tablet by mouth daily. [facility] norethindro ne 0.35 mg tablet 0 06-21 00:00: 00 Yes [id number] 1{tbl} Take 1 tablet by mouth daily. [facility] norethindro ne 0.35 mg tablet 0 06-21 00:00: 00 Yes [id number] 1{tbl} Take 1 tablet by mouth daily. [facility] norethindro ne 0.35 mg tablet 2021-0 06-21 00:00: 00 Yes [id number] 1{tbl} Take 1 tablet by mouth daily. [facility] norethindro ne 0.35 mg tablet 0 06-21 00:00: 00 Yes [id number] 1{tbl} Take 1 tablet by mouth daily. [facility] norethindro ne 0.35 mg tablet 06-21 00:00: 00 Yes [id number] 1{tbl} Take 1 tablet by mouth daily. [facility] norethindro ne 0.35 mg tablet 06-21 00:00: 00 10-02 00:00 :00 No [id number] 1{tbl} Take 1 tablet by mouth daily. [facility] norethindro ne 0.35 mg tablet 06-21 00:00: 00 10-02 00:00 :00 No [id number] 1{tbl} Take 1 tablet by mouth daily. [facility] Immunizations Ordered Immunization Name Filled Immunization Name Date Status Comments Source HPV9 2021-05-17 00:00:00 Completed [facility] HPV9 2021-05-17 00:00:00 Completed [facility] HPV9 2021-05-17 00:00:00 Completed [facility] 2021-05-17 00:00:00 Completed [facility] HPV9 2021-05-17 00:00:00 Completed [facility] HPV9 2021-05-17 00:00:00 Completed [facility] HPV9 2021-05-17 00:00:00 Completed [facility] HPV9 2021-05-17 00:00:00 Completed [facility] HPV9 2021-05-17 00:00:00 Completed [facility] HPV9 2021-05-17 00:00:00 Completed [facility] HPV9 2021-05-17 00:00:00 Completed [facility] HPV9 2021-05-17 00:00:00 Completed [facility] HPV9 2021-05-17 00:00:00 Completed [facility] HPV9 2021-05-17 00:00:00 Completed [facility] HPV9 2021-05-17 00:00:00 Completed [facility] HPV9 2021-05-17 00:00:00 Completed [facility] HPV9 2021-05-17 00:00:00 Completed [facility] HPV9 2021-05-17 00:00:00 Completed [facility] HPV9 2021-05-17 00:00:00 Completed [facility] HPV9 2021-05-17 00:00:00 Completed [facility] HPV9 2021-05-17 00:00:00 Completed [facility] HPV9 2021-05-17 00:00:00 Completed [facility] HPV9 2021-05-17 00:00:00 Completed [facility] HPV9 2021-05-17 00:00:00 Completed [facility] HPV9 2021-05-17 00:00:00 Completed [facility] HPV9 2021-05-17 00:00:00 Completed [facility] HPV9 2021-05-17 00:00:00 Completed [facility] TDAP 2021-02-22 00:00:00 Completed [facility] TDAP 2021-02-22 00:00:00 Completed [facility] TDAP 2021-02-22 00:00:00 Completed [facility] TDAP 2021-02-22 00:00:00 Completed [facility] TDAP 2021-02-22 00:00:00 Completed [facility] TDAP 2021-02-22 00:00:00 Completed [facility] TDAP 2021-02-22 00:00:00 Completed [facility] TDAP 2021-02-22 00:00:00 Completed [facility] TDAP 2021-02-22 00:00:00 Completed [facility] TDAP 2021-02-22 00:00:00 Completed [facility] TDAP 2021-02-22 00:00:00 Completed [facility] TDAP 2021-02-22 00:00:00 Completed [facility] TDAP 2021-02-22 00:00:00 Completed [facility] TDAP 2021-02-22 00:00:00 Completed [facility] TDAP 2021-02-22 00:00:00 Completed [facility] TDAP 2021-02-22 00:00:00 Completed [facility] TDAP 2021-02-22 00:00:00 Completed [facility] TDAP 2021-02-22 00:00:00 Completed [facility] TDAP 2021-02-22 00:00:00 Completed [facility] TDAP 2021-02-22 00:00:00 Completed [facility] TDAP 2021-02-22 00:00:00 Completed [facility] TDAP 2021-02-22 00:00:00 Completed [facility] TDAP 2021-02-22 00:00:00 Completed [facility] TDAP 2021-02-22 00:00:00 Completed [facility] TDAP 2021-02-22 00:00:00 Completed [facility] TDAP 2021-02-22 00:00:00 Completed [facility] TDAP 2021-02-22 00:00:00 Completed [facility] SARS-COV-2 COVID-19 MAURICIO/J&J VACCINE 2020-07-26 00:00:00 Completed [facility] SARS-COV-2 COVID-19 MAURICIO/J&J VACCINE 2020-07-26 00:00:00 Completed [facility] SARS-COV-2 COVID-19 MAURICIO/J&J VACCINE 2020-07-26 00:00:00 Completed [facility] SARS-COV-2 COVID-19 MAURICIO/J&J VACCINE 2020-07-26 00:00:00 Completed [facility] SARS-COV-2 COVID-19 MAURICIO/J&J VACCINE 2020-07-26 00:00:00 Completed [facility] SARS-COV-2 COVID-19 MAURICIO/J&J VACCINE 2020-07-26 00:00:00 Completed [facility] SARS-COV-2 COVID-19 MAURICIO/J&J VACCINE 2020-07-26 00:00:00 Completed [facility] SARS-COV-2 COVID-19 MAURICIO/J&J VACCINE 2020-07-26 00:00:00 Completed [facility] SARS-COV-2 COVID-19 MAURICIO/J&J VACCINE 2020-07-26 00:00:00 Completed [facility] SARS-COV-2 COVID-19 MAURICIO/J&J VACCINE 2020-07-26 00:00:00 Completed [facility] SARS-COV-2 COVID-19 MAURICIO/J&J VACCINE 2020-07-26 00:00:00 Completed [facility] SARS-COV-2 COVID-19 MAURICIO/J&J VACCINE 2020-07-26 00:00:00 Completed [facility] SARS-COV-2 COVID-19 MAURICIO/J&J VACCINE 2020-07-26 00:00:00 Completed [facility] SARS-COV-2 COVID-19 MAURICIO/J&J VACCINE 2020-07-26 00:00:00 Completed [facility] SARS-COV-2 COVID-19 MAURICIO/J&J VACCINE 2020-07-26 00:00:00 Completed [facility] SARS-COV-2 COVID-19 MAURICIO/J&J VACCINE 2020-07-26 00:00:00 Completed [facility] SARS-COV-2 COVID-19 MAURICIO/J&J VACCINE 2020-07-26 00:00:00 Completed [facility] SARS-COV-2 COVID-19 MAURICIO/J&J VACCINE 2020-07-26 00:00:00 Completed [facility] SARS-COV-2 COVID-19 MAURICIO/J&J VACCINE 2020-07-26 00:00:00 Completed [facility] SARS-COV-2 COVID-19 MAURICIO/J&J VACCINE 2020-07-26 00:00:00 Completed [facility] SARS-COV-2 COVID-19 MAURICIO/J&J VACCINE 2020-07-26 00:00:00 Completed [facility] SARS-COV-2 COVID-19 MAURICIO/J&J VACCINE 2020-07-26 00:00:00 Completed [facility] SARS-COV-2 COVID-19 MAURICIO/J&J VACCINE 2020-07-26 00:00:00 Completed [facility] SARS-COV-2 COVID-19 MAURICIO/J&J VACCINE 2020-07-26 00:00:00 Completed [facility] SARS-COV-2 COVID-19 MAURICIO/J&J VACCINE 2020-07-26 00:00:00 Completed [facility] SARS-COV-2 COVID-19 MAURICIO/J&J VACCINE 2020-07-26 00:00:00 Completed [facility] SARS-COV-2 COVID-19 MAURICIO/J&J VACCINE 2020-07-26 00:00:00 Completed [facility] HPV 2013-11-11 00:00:00 Completed [facility] HPV 2013-11-11 00:00:00 Completed [facility] HPV 2013-11-11 00:00:00 Completed [facility] HPV 2013-11-11 00:00:00 Completed [facility] HPV 2013-11-11 00:00:00 Completed [facility] HPV 2013-11-11 00:00:00 Completed [facility] HPV 2013-11-11 00:00:00 Completed [facility] HPV 2013-11-11 00:00:00 Completed [facility] HPV 2013-11-11 00:00:00 Completed [facility] HPV 2013-11-11 00:00:00 Completed [facility] HPV 2013-11-11 00:00:00 Completed [facility] HPV 2013-11-11 00:00:00 Completed [facility] HPV 2013-11-11 00:00:00 Completed [facility] HPV 2013-11-11 00:00:00 Completed [facility] HPV 2013-11-11 00:00:00 Completed [facility] HPV 2013-11-11 00:00:00 Completed [facility] HPV 2013-11-11 00:00:00 Completed [facility] HPV 2013-11-11 00:00:00 Completed [facility] HPV 2013-11-11 00:00:00 Completed [facility] HPV 2013-11-11 00:00:00 Completed [facility] HPV 2013-11-11 00:00:00 Completed [facility] HPV 2013-11-11 00:00:00 Completed [facility] HPV 2013-11-11 00:00:00 Completed [facility] HPV 2013-11-11 00:00:00 Completed [facility] HPV 2013-11-11 00:00:00 Completed [facility] HPV 2013-11-11 00:00:00 Completed [facility] HPV 2013-11-11 00:00:00 Completed [facility] HPV 2013-09-11 00:00:00 Completed [facility] HPV 2013-09-11 00:00:00 Completed [facility] HPV 2013-09-11 00:00:00 Completed [facility] HPV 2013-09-11 00:00:00 Completed [facility] HPV 2013-09-11 00:00:00 Completed [facility] HPV 2013-09-11 00:00:00 Completed [facility] HPV 2013-09-11 00:00:00 Completed [facility] HPV 2013-09-11 00:00:00 Completed [facility] HPV 2013-09-11 00:00:00 Completed [facility] HPV 2013-09-11 00:00:00 Completed [facility] HPV 2013-09-11 00:00:00 Completed [facility] HPV 2013-09-11 00:00:00 Completed [facility] HPV 2013-09-11 00:00:00 Completed [facility] HPV 2013-09-11 00:00:00 Completed [facility] HPV 2013-09-11 00:00:00 Completed [facility] HPV 2013-09-11 00:00:00 Completed [facility] HPV 2013-09-11 00:00:00 Completed [facility] HPV 2013-09-11 00:00:00 Completed [facility] HPV 2013-09-11 00:00:00 Completed [facility] HPV 2013-09-11 00:00:00 Completed [facility] HPV 2013-09-11 00:00:00 Completed [facility] HPV 2013-09-11 00:00:00 Completed [facility] HPV 2013-09-11 00:00:00 Completed [facility] HPV 2013-09-11 00:00:00 Completed [facility] HPV 2013-09-11 00:00:00 Completed [facility] HPV 2013-09-11 00:00:00 Completed [facility] HPV 2013-09-11 00:00:00 Completed [facility] HPV 2013-05-10 00:00:00 Completed [facility] HPV 2013-05-10 00:00:00 Completed [facility] HPV 2013-05-10 00:00:00 Completed [facility] HPV 2013-05-10 00:00:00 Completed [facility] HPV 2013-05-10 00:00:00 Completed [facility] HPV 2013-05-10 00:00:00 Completed [facility] HPV 2013-05-10 00:00:00 Completed [facility] HPV 2013-05-10 00:00:00 Completed [facility] HPV 2013-05-10 00:00:00 Completed [facility] HPV 2013-05-10 00:00:00 Completed [facility] HPV 2013-05-10 00:00:00 Completed [facility] HPV 2013-05-10 00:00:00 Completed [facility] HPV 2013-05-10 00:00:00 Completed [facility] HPV 2013-05-10 00:00:00 Completed [facility] HPV 2013-05-10 00:00:00 Completed [facility] HPV 2013-05-10 00:00:00 Completed [facility] HPV 2013-05-10 00:00:00 Completed [facility] HPV 2013-05-10 00:00:00 Completed [facility] HPV 2013-05-10 00:00:00 Completed [facility] HPV 2013-05-10 00:00:00 Completed [facility] HPV 2013-05-10 00:00:00 Completed [facility] HPV 2013-05-10 00:00:00 Completed [facility] HPV 2013-05-10 00:00:00 Completed [facility] HPV 2013-05-10 00:00:00 Completed [facility] HPV 2013-05-10 00:00:00 Completed [facility] HPV 2013-05-10 00:00:00 Completed [facility] HPV 2013-05-10 00:00:00 Completed [facility] Meningococcal Polysaccharide (groups A, C, Y and W-135) conjugate vaccine (MCV4P) 2012-10-16 00:00:00 Completed [facility] Meningococcal Polysaccharide (groups A, C, Y and W-135) conjugate vaccine (MCV4P) 2012-10-16 00:00:00 Completed [facility] Meningococcal Polysaccharide (groups A, C, Y and W-135) conjugate vaccine (MCV4P) 2012-10-16 00:00:00 Completed [facility] Meningococcal Polysaccharide (groups A, C, Y and W-135) conjugate vaccine (MCV4P) 2012-10-16 00:00:00 Completed [facility] Meningococcal Polysaccharide (groups A, C, Y and W-135) conjugate vaccine (MCV4P) 2012-10-16 00:00:00 Completed [facility] Td 2010-10-28 00:00:00 Completed [facility] Td 2010-10-28 00:00:00 Completed [facility] Td 2010-10-28 00:00:00 Completed [facility] Td 2010-10-28 00:00:00 Completed [facility] Td 2010-10-28 00:00:00 Completed [facility] Td 2010-10-28 00:00:00 Completed [facility] Td 2010-10-28 00:00:00 Completed [facility] Td 2010-10-28 00:00:00 Completed [facility] Td 2010-10-28 00:00:00 Completed [facility] Td 2010-10-28 00:00:00 Completed [facility] Td 2010-10-28 00:00:00 Completed [facility] Td 2010-10-28 00:00:00 Completed [facility] TD, NOS 2010-10-28 00:00:00 Completed [facility] TD, NOS 2010-10-28 00:00:00 Completed [facility] TD, NOS 2010-10-28 00:00:00 Completed [facility] TD, NOS 2010-10-28 00:00:00 Completed [facility] TD, NOS 2010-10-28 00:00:00 Completed [facility] TD, NOS 2010-10-28 00:00:00 Completed [facility] TD, NOS 2010-10-28 00:00:00 Completed [facility] TD, NOS 2010-10-28 00:00:00 Completed [facility] TD, NOS 2010-10-28 00:00:00 Completed [facility] TD, NOS 2010-10-28 00:00:00 Completed [facility] TD, NOS 2010-10-28 00:00:00 Completed [facility] TD, NOS 2010-10-28 00:00:00 Completed [facility] TD, NOS 2010-10-28 00:00:00 Completed [facility] TD, NOS 2010-10-28 00:00:00 Completed [facility] TD, NOS 2010-10-28 00:00:00 Completed [facility] HEPATITIS A 2009-09-16 00:00:00 Completed [facility] HEPATITIS A 2009-09-16 00:00:00 Completed [facility] HEPATITIS A 2009-09-16 00:00:00 Completed [facility] HEPATITIS A 2009-09-16 00:00:00 Completed [facility] HEPATITIS A 2009-09-16 00:00:00 Completed [facility] HEPATITIS A 2008-07-28 00:00:00 Completed [facility] Meningococcal Polysaccharide (groups A, C, Y and W-135) conjugate vaccine (MCV4P) 2008-07-28 00:00:00 Completed [facility] MMR 2008-07-28 00:00:00 Completed [facility] TDAP 2008-07-28 00:00:00 Completed [facility] HEPATITIS A 2008-07-28 00:00:00 Completed [facility] Meningococcal Polysaccharide (groups A, C, Y and W-135) conjugate vaccine (MCV4P) 2008-07-28 00:00:00 Completed [facility] MMR 2008-07-28 00:00:00 Completed [facility] TDAP 2008-07-28 00:00:00 Completed [facility] HEPATITIS A 2008-07-28 00:00:00 Completed [facility] Meningococcal Polysaccharide (groups A, C, Y and W-135) conjugate vaccine (MCV4P) 2008-07-28 00:00:00 Completed [facility] MMR 2008-07-28 00:00:00 Completed [facility] TDAP 2008-07-28 00:00:00 Completed [facility] HEPATITIS A 2008-07-28 00:00:00 Completed [facility] Meningococcal Polysaccharide (groups A, C, Y and W-135) conjugate vaccine (MCV4P) 2008-07-28 00:00:00 Completed [facility] MMR 2008-07-28 00:00:00 Completed [facility] TDAP 2008-07-28 00:00:00 Completed [facility] HEPATITIS A 2008-07-28 00:00:00 Completed [facility] Meningococcal Polysaccharide (groups A, C, Y and W-135) conjugate vaccine (MCV4P) 2008-07-28 00:00:00 Completed [facility] MMR 2008-07-28 00:00:00 Completed [facility] TDAP 2008-07-28 00:00:00 Completed [facility] DTaP, Unspecified Formulation 2002-04-01 00:00:00 Completed [facility] MMR 2002-04-01 00:00:00 Completed [facility] IPV 2002-04-01 00:00:00 Completed [facility] DTaP, Unspecified Formulation 2002-04-01 00:00:00 Completed [facility] MMR 2002-04-01 00:00:00 Completed [facility] IPV 2002-04-01 00:00:00 Completed [facility] DTaP, Unspecified Formulation 2002-04-01 00:00:00 Completed [facility] MMR 2002-04-01 00:00:00 Completed [facility] IPV 2002-04-01 00:00:00 Completed [facility] DTaP, Unspecified Formulation 2002-04-01 00:00:00 Completed [facility] MMR 2002-04-01 00:00:00 Completed [facility] IPV 2002-04-01 00:00:00 Completed [facility] DTaP, Unspecified Formulation 2002-04-01 00:00:00 Completed [facility] MMR 2002-04-01 00:00:00 Completed [facility] IPV 2002-04-01 00:00:00 Completed [facility] DPT/HIB 1996 00:00:00 Completed [facility] Hep B, Unspecified Formulation 1996 00:00:00 Completed [facility] Poliovirus, Live, Oral, Trivalent 1996 00:00:00 Completed [facility] DPT/HIB 1996 00:00:00 Completed [facility] Hep B, Unspecified Formulation 1996 00:00:00 Completed [facility] Poliovirus, Live, Oral, Trivalent 1996 00:00:00 Completed [facility] DPT/HIB 1996 00:00:00 Completed [facility] Hep B, Unspecified Formulation 1996 00:00:00 Completed [facility] Poliovirus, Live, Oral, Trivalent 1996 00:00:00 Completed [facility] DPT/HIB 1996 00:00:00 Completed [facility] Hep B, Unspecified Formulation 1996 00:00:00 Completed [facility] Poliovirus, Live, Oral, Trivalent 1996 00:00:00 Completed [facility] DPT/HIB 1996 00:00:00 Completed [facility] Hep B, Unspecified Formulation 1996 00:00:00 Completed [facility] Poliovirus, Live, Oral, Trivalent 1996 00:00:00 Completed [facility] Hep B, Unspecified Formulation 1996 00:00:00 Completed [facility] Hep B, Unspecified Formulation 1996 00:00:00 Completed [facility] Hep B, Unspecified Formulation 1996 00:00:00 Completed [facility] Hep B, Unspecified Formulation 1996 00:00:00 Completed [facility] Hep B, Unspecified Formulation 1996 00:00:00 Completed [facility] Meningococcal Polysaccharide (groups A, C, Y and W-135) conjugate vaccine (MCV4P) Unknown Completed [facility] Meningococcal Polysaccharide (groups A, C, Y and W-135) conjugate vaccine (MCV4P) Unknown Completed [facility] MMR Unknown Completed [facility] MMR Unknown Completed [facility] IPV Unknown Completed [facility] Poliovirus, Live, Oral, Trivalent Unknown Completed [facility] TDAP Unknown Completed [facility] TD, NOS Unknown Completed [facility] HPV Unknown Completed [facility] SARS-COV-2 COVID-19 MAURICIO/J&J VACCINE Unknown Completed [facility] HPV Unknown Completed [facility] HPV Unknown Completed [facility] DTaP, Unspecified Formulation Unknown Completed [facility] DPT/HIB Unknown Completed [facility] HEPATITIS A Unknown Completed [facility] HEPATITIS A Unknown Completed [facility] Hep B, Unspecified Formulation Unknown Completed [facility] Hep B, Unspecified Formulation Unknown Completed [facility] Meningococcal Polysaccharide (groups A, C, Y and W-135) conjugate vaccine (MCV4P) Unknown Completed [facility] Meningococcal Polysaccharide (groups A, C, Y and W-135) conjugate vaccine (MCV4P) Unknown Completed [facility] MMR Unknown Completed [facility] MMR Unknown Completed [facility] IPV Unknown Completed [facility] Poliovirus, Live, Oral, Trivalent Unknown Completed [facility] TDAP Unknown Completed [facility] TD, NOS Unknown Completed [facility] HPV Unknown Completed [facility] SARS-COV-2 COVID-19 MAURICIO/J&J VACCINE Unknown Completed [facility] TDAP Unknown Completed [facility] HPV Unknown Completed [facility] HPV Unknown Completed [facility] HPV9 Unknown Completed [facility] DTaP, Unspecified Formulation Unknown Completed [facility] DPT/HIB Unknown Completed [facility] HEPATITIS A Unknown Completed [facility] HEPATITIS A Unknown Completed [facility] Hep B, Unspecified Formulation Unknown Completed [facility] Hep B, Unspecified Formulation Unknown Completed [facility] Meningococcal Polysaccharide (groups A, C, Y and W-135) conjugate vaccine (MCV4P) Unknown Completed [facility] Meningococcal Polysaccharide (groups A, C, Y and W-135) conjugate vaccine (MCV4P) Unknown Completed [facility] MMR Unknown Completed [facility] MMR Unknown Completed [facility] IPV Unknown Completed [facility] Poliovirus, Live, Oral, Trivalent Unknown Completed [facility] TDAP Unknown Completed [facility] TD, NOS Unknown Completed [facility] HPV Unknown Completed [facility] SARS-COV-2 COVID-19 MAURICIO/J&J VACCINE Unknown Completed [facility] TDAP Unknown Completed [facility] HPV Unknown Completed [facility] HPV Unknown Completed [facility] HPV9 Unknown Completed [facility] DTaP, Unspecified Formulation Unknown Completed [facility] DPT/HIB Unknown Completed [facility] HEPATITIS A Unknown Completed [facility] HEPATITIS A Unknown Completed [facility] Hep B, Unspecified Formulation Unknown Completed [facility] Hep B, Unspecified Formulation Unknown Completed [facility] Meningococcal Polysaccharide (groups A, C, Y and W-135) conjugate vaccine (MCV4P) Unknown Completed [facility] Meningococcal Polysaccharide (groups A, C, Y and W-135) conjugate vaccine (MCV4P) Unknown Completed [facility] MMR Unknown Completed [facility] MMR Unknown Completed [facility] IPV Unknown Completed [facility] Poliovirus, Live, Oral, Trivalent Unknown Completed [facility] TDAP Unknown Completed [facility] TD, NOS Unknown Completed [facility] HPV Unknown Completed [facility] SARS-COV-2 COVID-19 MAURICIO/J&J VACCINE Unknown Completed [facility] TDAP Unknown Completed [facility] HPV Unknown Completed [facility] HPV Unknown Completed [facility] HPV9 Unknown Completed [facility] DTaP, Unspecified Formulation Unknown Completed [facility] DPT/HIB Unknown Completed [facility] HEPATITIS A Unknown Completed [facility] HEPATITIS A Unknown Completed [facility] Hep B, Unspecified Formulation Unknown Completed [facility] Hep B, Unspecified Formulation Unknown Completed [facility] Meningococcal Polysaccharide (groups A, C, Y and W-135) conjugate vaccine (MCV4P) Unknown Completed [facility] Meningococcal Polysaccharide (groups A, C, Y and W-135) conjugate vaccine (MCV4P) Unknown Completed [facility] MMR Unknown Completed [facility] MMR Unknown Completed [facility] IPV Unknown Completed [facility] Poliovirus, Live, Oral, Trivalent Unknown Completed [facility] TDAP Unknown Completed [facility] TD, NOS Unknown Completed [facility] HPV Unknown Completed [facility] SARS-COV-2 COVID-19 MAURICIO/J&J VACCINE Unknown Completed [facility] TDAP Unknown Completed [facility] HPV Unknown Completed [facility] HPV Unknown Completed [facility] DTaP, Unspecified Formulation Unknown Completed [facility] DPT/HIB Unknown Completed [facility] HEPATITIS A Unknown Completed [facility] HEPATITIS A Unknown Completed [facility] Hep B, Unspecified Formulation Unknown Completed [facility] Hep B, Unspecified Formulation Unknown Completed [facility] Vital Signs Vital Name Observation Time Observation Value Comments S ource Systolic blood pressure 2022-12-03 00:15:00 118 mm[Hg] [facility] Diastolic blood pressure 2022-12-03 00:15:00 79 mm[Hg] [facility] Heart rate 2022-12-03 00:15:00 99 /min [facility] Body temperature 2022-12-03 00:15:00 37.44 Emmanuelle [facility] Respiratory rate 2022-12-03 00:15:00 15 /min [facility] Body height 2022-12-03 00:15:00 165.1 cm [facility] Body weight 2022-12-03 00:15:00 138.256 kg [facility] BMI 2022-12-03 00:15:00 50.72 kg/m2 [facility] Oxygen saturation in Arterial blood by Pulse oximetry 2022-12-03 00:15:00 98 /min [facility] Systolic blood pressure 2022-10-02 18:30:00 136 mm[Hg] [facility] Diastolic blood pressure 2022-10-02 18:30:00 75 mm[Hg] [facility] Heart rate 2022-10-02 18:30:00 80 /min [facility] Body temperature 2022-10-02 18:30:00 36.83 Emmanuelle [facility] Respiratory rate 2022-10-02 18:30:00 18 /min [facility] Body height 2022-10-02 18:30:00 162.6 cm [facility] Body weight 2022-10-02 18:30:00 132.904 kg [facility] BMI 2022-10-02 18:30:00 50.29 kg/m2 [facility] Systolic blood pressure 2022-04-30 16:31:00 133 mm[Hg] [facility] Diastolic blood pressure 2022-04-30 16:31:00 84 mm[Hg] [facility] Heart rate 2022-04-30 16:31:00 76 /min [facility] Body temperature 2022-04-30 16:31:00 35.83 Emmanuelle [facility] Respiratory rate 2022-04-30 16:31:00 18 /min [facility] Body height 2022-04-30 16:31:00 162.6 cm [facility] Body weight 2022-04-30 16:31:00 131.815 kg [facility] BMI 2022-04-30 16:31:00 49.88 kg/m2 [facility] Systolic blood pressure 2022-04-19 15:39:00 119 mm[Hg] [facility] Diastolic blood pressure 2022-04-19 15:39:00 76 mm[Hg] [facility] Heart rate 2022-04-19 15:39:00 81 /min [facility] Body temperature 2022-04-19 15:39:00 36.61 Emmanuelle [facility] Respiratory rate 2022-04-19 15:39:00 18 /min [facility] Body height 2022-04-19 15:39:00 162.6 cm [facility] Body weight 2022-04-19 15:39:00 131.044 kg [facility] BMI 2022-04-19 15:39:00 49.59 kg/m2 [facility] Systolic blood pressure 2022-03-03 15:17:00 125 mm[Hg] [facility] Diastolic blood pressure 2022-03-03 15:17:00 87 mm[Hg] [facility] Heart rate 2022-03-03 15:17:00 74 /min [facility] Body temperature 2022-03-03 15:17:00 36.83 Emmanuelle [facility] Respiratory rate 2022-03-03 15:17:00 18 /min [facility] Body height 2022-03-03 15:17:00 162.6 cm [facility] Body weight 2022-03-03 15:17:00 113.399 kg [facility] BMI 2022-03-03 15:17:00 42.91 kg/m2 [facility] Oxygen saturation in Arterial blood by Pulse oximetry 2022-03-03 15:17:00 99 /min [facility] Systolic blood pressure 2022-02-14 20:28:00 138 mm[Hg] [facility] Diastolic blood pressure 2022-02-14 20:28:00 85 mm[Hg] [facility] Heart rate 2022-02-14 20:28:00 66 /min [facility] Body temperature 2022-02-14 20:28:00 36.33 Emmanuelle [facility] Respiratory rate 2022-02-14 20:28:00 20 /min [facility] Body height 2022-02-14 20:28:00 162.6 cm [facility] Body weight 2022-02-14 20:28:00 124.059 kg [facility] BMI 2022-02-14 20:28:00 46.95 kg/m2 [facility] Systolic blood pressure 2022-01-24 22:13:00 144 mm[Hg] Had to try 3x before getting a reading [facility] Diastolic blood pressure 2022-01-24 22:13:00 98 mm[Hg] Had to try 3x before getting a reading [facility] Heart rate 2022-01-24 22:13:00 97 /min [facility] Body temperature 2022-01-24 22:13:00 36.89 Emmanuelle [facility] Respiratory rate 2022-01-24 22:13:00 18 /min [facility] Body height 2022-01-24 22:13:00 162.6 cm [facility] Body weight 2022-01-24 22:13:00 125.919 kg [facility] BMI 2022-01-24 22:13:00 47.65 kg/m2 [facility] Oxygen saturation in Arterial blood by Pulse oximetry 2022-01-24 22:13:00 98 /min [facility] Systolic blood pressure 2021-12-06 13:30:00 124 mm[Hg] [facility] Diastolic blood pressure 2021-12-06 13:30:00 54 mm[Hg] [facility] Heart rate 2021-12-06 13:30:00 72 /min [facility] Body temperature 2021-12-06 13:30:00 36.28 Emmanuelle [facility] Respiratory rate 2021-12-06 13:30:00 18 /min [facility] Body height 2021-12-06 13:30:00 165.1 cm [facility] Body weight 2021-12-06 13:30:00 130.296 kg [facility] BMI 2021-12-06 13:30:00 47.80 kg/m2 [facility] Procedures Procedure Date / Time Performed Performing Clinician Source POCT SARS-COV-2 ANTIGEN (BINAX NOW) 2022-12-03 00:31:00 Jessika Manrique [facility] CBC WITH DIFF 2022-10-02 19:30:00 Jennifer Puri [facility] GLYCOSYLATED HEMOGLOBIN (A1C) 2022-10-02 19:30:00 Jennifer Puri [facility] HCV ANTIBODY 2022-10-02 19:30:00 [facility] & CHLAMYDIA AMPLIFIED ASSAY 2022-10-02 19:30:00 Jennifer Puri [facility] HIV 1/2 AG-AB WITH REFLEX 2022-10-02 19:30:00 Jennifer Puri [facility] TRICHOMONAS AMPLIFIED ASSAY 2022-10-02 19:30:00 Jennifer Puri [facility] PAP SMEAR-LIQUID BASED-CP 2022-10-02 19:30:00 Jennifer Puri [facility] SYPHILIS IGG/IGM 2022-10-02 19:30:00 Jennifer Puri [facility] PATIENT FINANCIAL POLICY 2022-10-02 18:08:46 Doctor Unassigned, Melody Hill [facility] POCT TEST 2022-04-30 16:35:00 Jonel Adams [facility] DISCLOSURE AND CONSENT, MEDICAL AND SURGICAL PROCEDURES 2022-04-30 06:01:00 Doctor Unassigned, Melody Hill [facility] POCT TEST 2022-04-19 15:41:00 Jonel Adams [facility] BASIC METABOLIC PANEL (NA, K, CL, CO2, GLUCOSE, BUN, CREATININE, CA) 2022-03-03 15:57:00 Tiana Antonio [facility] ETHANOL 2022-03-03 15:57:00 Tiana Antonio [facility] CBC WITH DIFF 2022-03-03 15:57:00 Tiana Antonio [facility] URINALYSIS 2022-03-03 15:57:00 Tiana Antonio [facility] URINE DRUG (IMMUNOASSAY) - COMPREHENSIVE DRUG SCREEN W/O REFLEX 2022-03-03 15:57:00 Tiana Antonio [facility] HB ECG ROUTINE & RHYTHM STRIP 2022-03-03 15:55:48 Tiana Antonio [facility] POCT TEST 2022-02-14 20:48:00 Jonel Adams [facility] ASSIGNMENT OF BENEFITS 2022-02-14 19:38:06 Docto r Unassigned, Melody Hill [facility] POCT URINALYSIS 2022-01-24 22:31:00 Jessika Manrique [facility] POCT TEST 2021-12-06 15:36:00 Jonel Adams [facility] Encounters Start Date/Time End Date/Time Encounter Type Admission Type Attending Clinicians Care Facility Care Department Encounter ID Source 2021-01-22 06:46:10 Emergency [facility] [id number] [facility] 2023-02-21 15:00:00 2023-02-21 15:00:00 Outpatient ESTEVAN ALCALA [facility] [id number] [facility] 2023-01-28 00:00:00 2023-01-28 00:00:00 Outpatient GC_GCBZW_Ka diyala_S PRIV PRIV [id number] [facility] 2023-01-22 08:30:00 2023-01-22 08:30:00 Outpatient R ESTEVAN ADAMS [facility] [id number] [facility] 2023-01-19 00:00:00 2023-01-19 00:00:00 Outpatient GC_GCBZW_Ka diyala_S PRIV PRIV [id number] [facility] 2023-01-18 00:00:00 2023-01-18 00:00:00 Outpatient GC_GCBZW_Ka diyala_S PRIV PRIV [id number] [facility] 2023-01-18 00:00:00 2023-01-18 00:00:00 Telephone Estevan Adams [facility] [employer] ADMINISTRATOR [facility] MATERNAL & CHILD [facility]ALTH [facility] 1..840.114 350.1.13.10 4.2.7.2.686 [id number] 107 [id number] [facility] 2023-01-14 14:00:00 2023-01-14 14:00:00 Outpatient R FINK-JANETT S, OMKAR FINK-JANETT S, OMKAR [facility] [id number] [facility] 2022-12-04 00:00:00 2022-12-04 00:00:00 Telephone Jessika Manrique [facility] 1.2.840.114 350.1.13.10 4.2.7.2.686 [id number] [facility] 2022-12-02 19:00:00 2022-12-02 19:35:03 Outpatient R JESSIKA MANRIQUE [facility] [id number] [facility] 2022-12-02 19:00:00 2022-12-02 19:20:00 Urgent Care Jessika Manrique, Attending [facility] 1.2.840.114 350.1.13.10 4.2.7.2.686 [id number] [facility] 2022-10-04 00:00:00 2022-10-04 00:00:00 Telephone Jennifer Puri [facility] [employer] ADMINISTRATOR [facility] CHILD [facility] 1..840.114 350.1.13.10 4.2.7.2.686 [id number] [facility] 2022-10-02 13:30:00 2022-10-02 14:31:55 Outpatient R JENNIFER PURI [facility] [id number] [facility] 2022-10-02 13:30:00 2022-10-02 14:31:55 Office Visit Jennifer Puri [facility] [employer] ADMINISTRATOR [facility] 1..840.114 350.1.13.10 4.2.7.2.686 [id number] [facility] 2022-10-02 00:00:00 2022-10-02 00:00:00 Orders Only Doctor Unassigned, Melody Hill [facility] 1.840.114 350.1.13.10 4.2.7.2.686 [id number] [facility] 2022-07-04 13:15:00 2022-07-04 13:15:00 Outpatient SIRIA MAGANA [facility] [id number] [facility] 2022-07-04 13:15:00 2022-07-04 13:15:00 Outpatient SIRIA MAGANA [facility] [id number] [facility] 2022-07-04 13:00:00 2022-07-04 13:00:00 Outpatient SIRIA MAGANA [facility] [id number] [facility] 2022-04-30 10:00:00 2022-04-30 10:30:00 Office Visit Estevan Adams [facility] [employer] ADMINISTRATOR [facility] & CHILD [facility] 1.2.840.114 350.1.13.10 4.2.7.2.686 [id number] [facility] 2022-04-30 10:00:00 2022-04-30 10:00:00 Outpatient R ESTEVAN ADAMS [facility] [id number] [facility] 2022-04-30 00:00:00 2022-04-30 00:00:00 Orders Only Doctor Unassigned, Melody Hill [facility] 1.2840.114 350.1.13.10 4.2.7.2.686 [id number] [facility] 2022-04-19 09:30:00 2022-04-19 10:05:06 Outpatient R ESTEVAN ADAMS [facility] [id number] [facility] 2022-04-19 09:30:00 2022-04-19 10:05:06 Office Visit Estevan Adams [facility] [employer] ADMINISTRATOR [facility] MATERNAL & CHILD HEALTH [facility] 1.2.840.114 350.1.13.10 4.2.7.2.686 [id number] [facility] 2022-04-19 00:00:00 2022-04-19 00:00:00 Letter (Out) Estevan Adams [facility] [employer] ADMINISTRATOR [facility] MATERNAL & CHILD [facility] 1.2.840.114 350.1.13.10 4.2.7.2.686 [id number] [facility] 2022-03-07 09:45:00 2022-03-07 09:45:00 Outpatient R SIRIA ANDERSON [facility] [id number] [facility] 2022-03-03 09:22:00 2022-03-03 12:44:00 Emergency X TIANA ANTONIO [facility] ERT [id number] [facility] 2022-03-03 09:22:00 2022-03-03 12:44:00 Emergency Tiana Antonio [facility] 1..114 350.1.13.10 4.2.7.2.686 [id number] [facility] 2022-02-18 00:00:00 2022-02-18 00:00:00 Estevan Poe [facility] [employer] ADMINISTRATOR [facility] MATERNAL & CHILD [facility] 1.0.114 350.1.13.10 4.2.7.2.686 [id number] 107 [id number] [facility] 2022-02-14 13:30:00 2022-02-14 14:35:37 Nurse Visit Visit, [facility] Nurse Jennifer Puri [facility] [employer] ADMINISTRATOR [facility] & CHILD [facility] 1..114 350.1.13.10 4.2.7.2.686 [id number] [facility] 2022-02-14 14:30:00 2022-02-14 14:30:00 Outpatient JENNIFER BALL [facility] [id number] [facility] 2022-02-14 13:30:00 2022-02-14 13:30:00 Outpatient JENNIFER BALL [facility] [id number] [facility] 2022-02-14 00:00:00 2022-02-14 00:00:00 Orders Only Doctor Unassigned, [place]ody Hill [facility] 1..114 350.1.13.10 4.2.7.2.686 [id number] [facility] 2022-02-14 00:00:00 2022-02-14 00:00:00 Telephone Siria Anderson [facility] [employer] 1..114 350.1.13.10 4.2.7.2.686 [id number] [facility] 2022-02-06 00:00:00 2022-02-06 00:00:00 Telephone Estevan Adams [facility] [employer] ADMINISTRATOR [facility] MATERNAL & CHILD [facility] 1.2.840.114 350.1.13.10 4.2.7.2.686 [id number] [facility] 2022-01-24 17:20:00 2022-01-24 17:28:54 Outpatient R JESSIKA MANRIQUE [facility] [id number] [facility] 2022-01-24 17:20:00 2022-01-24 17:28:54 Urgent Care Jessika Manrique Unknown, Attending [facility] 1.2840.114 350.1.13.10 4.2.7.2.686 [id number] [facility] 2022-01-01 00:00:00 2022-01-01 00:00:00 Refill Estevan Adams [facility] [employer] ADMINISTRATOR [facility] & CHILD [facility] 1.2840.114 350.1.13.10 4.2.7.2.686 [id number] [facility] 2022-01-01 00:00:00 2022-01-01 00:00:00 Telephone Estevan Adams [facility] [employer] ADMINISTRATOR [facility] CHILD [facility] 1.2.840.114 350.1.13.10 4.2.7.2.686 [id number] [facility] 2021-12-29 00:00:00 2021-12-29 00:00:00 Refill Estevan Adams [facility] [employer] ADMINISTRATOR [facility] & CHILD [facility] 1.2.840.114 350.1.13.10 4.2.7.2.686 [id number] [facility] 2021-12-06 08:15:00 2021-12-06 08:54:24 Office Visit Estevan Adams [facility] [employer] ADMINISTRATOR [facility] & CHILD [facility] 1.2.840.114 350.1.13.10 4.2.7.2.686 [id number] [facility] 2021-12-06 08:15:00 2021-12-06 08:54:24 Outpatient R ESTEVAN ADAMS [facility] [id number] [facility] 2021-12-06 08:15:00 2021-12-06 08:15:00 Outpatient R ESTEVAN ADAMS [facility] [id number] [facility] 2021-11-22 15:15:00 2021-11-22 15:15:00 Outpatient R ESTEVAN ADAMS [facility] [id number] [facility] 2021-11-21 00:00:00 2021-11-21 00:00:00 Telephone Siria Anderson [facility] [employer] ADMINISTRATOR [facility] CHILD [facility] 1.2.840.114 350.1.13.10 4.2.7.2.686 [id number] [facility] 2021-11-20 00:00:00 2021-11-20 00:00:00 Telephone Siria Anderson [facility] [employer] ADMINISTRATOR [facility] CHILD [facility] 1.2.840.114 350.1.13.10 4.2.7.2.686 [id number] [facility] 2021-09-03 00:00:00 2021-09-03 00:00:00 Refill Siria Anderson [facility] [employer] ADMINISTRATOR [facility] & CHILD [facility] 1.2.840.114 350.1.13.10 4.2.7.2.686 [id number] [facility] 2021-07-04 12:45:00 2021-07-04 13:31:36 Office Visit Siria Anderson [facility] [employer] ADMINISTRATOR [facility] & CHILD [facility] 1.2.840.114 350.1.13.10 4.2.7.2.686 [id number] [facility] 2021-07-04 12:45:00 2021-07-04 13:31:36 Outpatient SIRIA MAGANA [facility] [id number] [facility] 2021-07-04 12:45:00 2021-07-04 12:45:00 [facility] [id number] [facility] 2021-07-04 00:00:00 2021-07-04 00:00:00 Telephone Maisha West [facility] 1.2.840.114 350.1.13.10 4.2.7.2.686 [id number] [facility] 2021-07-03 18:20:00 2021-07-03 18:53:48 [facility] [id number] [facility] 2021-07-03 18:20:00 2021-07-03 18:53:48 Urgent Care [facility] 1.2.840.114 350.1.13.10 4.2.7.2.686 [id number] [facility] 2021-07-03 18:20:00 2021-07-03 18:53:48 Outpatient Divya MANRIQUE [facility] [id number] [facility] 2021-07-03 09:30:00 2021-07-03 09:30:00 Outpatient EASTON RIOJAS [id number] [facility] 2021-07-03 08:15:00 2021-07-03 08:15:00 Outpatient EASTON RIOJAS [id number] [facility] 2021-07-03 00:00:00 2021-07-03 00:00:00 Patient Secure Msg Siria Anderson [facility] [email or web address] [employer] ADMINISTRATOR [facility] 1.2840.114 350.1.13.10 4.2.7.2.686 [id number] [facility] 2021-06-21 13:00:00 2021-06-21 14:53:50 Outpatient R LUDA ANDERSONKALI [facility] [id number] [facility] 2021-06-21 13:00:00 2021-06-21 14:53:50 Office Visit Anette Andersonking Stokes [facility] [employer] ADMINISTRATOR [facility] 1.0.114 350.1.13.10 4.2.7.2.686 [id number] [facility] 2021-06-21 13:00:00 2021-06-21 14:53:50 Outpatient R JUSTIN SIRIA [facility] [id number] [facility] 2021-05-31 08:00:00 2021-05-31 09:04:36 Outpatient R LUDA ANDERSONKALI [facility] [id number] [facility] 2021-05-31 08:00:00 2021-05-31 09:04:36 Routine Visit Justin Siria Stokes [facility] [employer] ADMINISTRATOR [facility] CHILD [facility] 1.0.114 350.1.13.10 4.2.7.2.686 [id number] [facility] 2021-05-29 00:00:00 2021-05-29 00:00:00 Patient Secure Msg Justin Siria [facility] [[email or web address]] [employer] ADMINISTRATOR [facility] & CHILD [facility] 1.2840.114 350.1.13.10 4.2.7.2.686 [id number] [facility] 2021-05-19 00:00:00 2021-05-19 00:00:00 Telephone Estevan Adams [facility] [employer] ADMINISTRATOR [facility] & CHILD [facility] 1.2.840.114 350.1.13.10 4.2.7.2.686 [id number] [facility] 2021-05-17 13:00:00 2021-05-17 13:00:00 Nurse Visit Nurse, Naun Lima Exp Cprit Obgyn Siria Anderson [facility] [employer] ADMINISTRATOR [facility] & CHILD [facility] 1.2.840.114 350.1.13.10 4.2.7.2.686 [id number] 107 [id number] [facility] 2021-05-17 13:00:00 2021-05-17 08:46:02 Outpatient R SIRIA ANDERSON [facility] [id number] [facility] 2021-05-17 08:00:00 2021-05-17 08:45:55 [facility] ADMINISTRATOR [facility] CHILD [facility] 1.2840.114 350.1.13.10 4.2.7.2.686 [id number] 107 [id number] [facility] 2021-05-09 17:42:00 2021-05-12 16:52:00 Inpatient P THA JODEE [facility] REZA [id number] [facility] 2021-05-09 17:42:00 2021-05-12 16:52:00 Hospital Encounter Jodee Almazan [facility] 1.2840.114 350.1.13.10 4.2.7.2.686 [id number] [facility] 2021-05-10 17:00:00 2021-05-10 18:47:00 Surgery Zbigniew Fernandez [facility] 1.2.840.114 350.1.13.10 4.2.7.2.686 [id number] [facility] 2021-05-10 09:54:00 2021-05-10 18:34:00 Anesthesia Event Glen Mcgraw Axel [facility] 1.0.114 350.1.13.10 4.2.7.2.686 [id number] [facility] 2021-05-09 13:15:00 2021-05-09 14:00:22 Outpatient R SIRIA ANDERSON [facility] [id number] [facility] 2021-05-09 13:15:00 2021-05-09 14:00:22 Routine Visit Siria Anderson [facility] [employer] ADMINISTRATOR [facility] MATERNAL & CHILD [facility] 1.20.114 350.1.13.10 4.2.7.2.686 [id number] 107 [id number] [facility] 2021-05-02 15:30:00 2021-05-02 15:58:07 Outpatient R SIRIA ANDERSON [facility] [id number] [facility] 2021-05-02 15:30:00 2021-05-02 15:58:07 Routine Visit Siria Anderson [facility] [employer] ADMINISTRATOR [facility] MATERNAL & CHILD [facility] 1.20.114 350.1.13.10 4.2.7.2.686 [id number] [facility] 2021-05-02 00:00:00 2021-05-02 00:00:00 Abstract Siria Anderson [facility] [employer] ADMINISTRATOR [facility] & CHILD [facility] 1.20.114 350.1.13.10 4.2.7.2.686 [id number] 107 [id number] [facility] 2021-04-28 09:30:00 2021-04-28 10:00:00 Food Service Representative Visit Ultrasound, Katelyn Whiting [facility] [employer] ADMINISTRATOR [facility] MATERNAL & CHILD [facility] 1.2840.114 350.1.13.10 4.2.7.2.686 [id number] [facility] 2021-04-28 09:30:00 2021-04-28 09:30:00 Outpatient P [facility] [id number] [facility] 2021-04-28 09:30:00 2021-04-28 09:30:00 Outpatient P [facility] [id number] [facility] 2021-04-28 09:30:00 2021-04-28 09:30:00 Outpatient P KATELYN CRUZ SHANNON [facility] [id number] [facility] 2021-04-25 15:30:00 2021-04-25 16:19:38 Outpatient R SIRIA ANDERSON [facility] [id number] [facility] 2021-04-25 15:30:00 2021-04-25 16:19:38 Routine Visit Siria Anderson [facility] [employer] ADMINISTRATOR [facility] & CHILD [facility] ..840.114 350.1.13.10 4.2.7.2.686 [id number] 107 [id number] [facility] 2021-04-25 15:30:00 2021-04-25 15:30:00 Outpatient R SIRIA ANDERSON [facility] [id number] [facility] 2021-04-24 15:30:00 2021-04-24 15:30:00 Outpatient P [facility] [id number] [facility] 2021-04-21 00:00:00 2021-04-21 00:00:00 Telephone Siria Anderson [facility] [employer] ADMINISTRATOR [facility] & [facility] ..840.114 350.1.13.10 4.2.7.2.686 [id number] 107 [id number] [facility] 2021-04-19 13:15:00 2021-04-19 13:15:00 Outpatient R SIRIA ANDERSON [facility] [id number] [facility] 2021-04-19 13:15:00 2021-04-19 13:15:00 Food Service Representative Visit Lab, Ang-Rmchp Siria Anderson R [facility] [employer] ADMINISTRATOR [facility] MATERNAL & CHILD [facility] 1.2.840.114 350.1.13.10 4.2.7.2.686 [id number] 107 [id number] [facility] 2021-04-19 13:00:00 2021-04-19 13:00:00 Outpatient P [facility] [id number] [facility] 2021-04-19 00:00:00 2021-04-19 00:00:00 Telephone Anette Andersonking Stokes [facility] [employer] ADMINISTRATOR [facility] MATERNAL & CHILD [facility] 1.2.840.114 350.1.13.10 4.2.7.2.686 [id number] [facility] 2021-04-18 15:30:00 2021-04-18 16:11:31 Outpatient SIRIA MAGANA [facility] [id number] [facility] 2021-04-18 15:30:00 2021-04-18 16:11:31 Routine Visit Anderson, Siria Stokes [facility] [employer] ADMINISTRATOR [facility] MATERNAL & CHILD [facility] 1.2.840.114 350.1.13.10 4.2.7.2.686 [id number] [facility] 2021-04-18 15:30:00 2021-04-18 16:11:31 Outpatient SIRIA MAGANA [facility] [id number] [facility] 2021-04-18 15:30:00 2021-04-18 15:30:00 Outpatient SIRIA MAGANA [facility] [id number] [facility] 2021-04-11 13:00:00 2021-04-11 14:15:13 Outpatient SIRIA MAGANA [facility] [id number] [facility] 2021-04-11 13:00:00 2021-04-11 14:15:13 Outpatient R SIRIA ANDERSON [facility] [id number] [facility] 2021-04-11 13:00:00 2021-04-11 14:15:13 Routine Visit Anderson, Siria Stokes [facility] [employer] ADMINISTRATOR [facility] & CHILD [facility] 1..114 350.1.13.10 4.2.7.2.686 [id number] 107 [id number] [facility] 2021-04-11 13:00:00 2021-04-11 13:00:00 Outpatient R JUSTIN SIRIA [facility] [id number] [facility] 2021-03-29 00:00:00 2021-03-29 00:00:00 Telephone Justin Siria Stokes [facility] [employer] ADMINISTRATOR [facility] & CHILD [facility] 1..114 350.1.13.10 4.2.7.2.686 [id number] 107 [id number] [facility] 2021-03-22 14:30:00 2021-03-22 14:51:40 Outpatient R ANDERSON, SIRIA [facility] [id number] [facility] 2021-03-22 14:30:00 2021-03-22 14:51:40 [facility] 1..114 350.1.13.10 4.2.7.2.686 [id number] 107 [id number] [facility] 2021-03-22 14:30:00 2021-03-22 14:30:00 Outpatient R JUSTIN SIRIA [facility] [id number] [facility] 2021-03-22 14:00:00 2021-03-22 14:30:00 Food Service Representative Visit Ultrasound, [facility] [employer] ADMINISTRATOR [facility] & CHILD [facility] 1..114 350.1.13.10 4.2.7.2.686 [id number] [facility] 2021-03-22 00:00:00 2021-03-22 00:00:00 Abstract Justin Siria Stokes [facility] [employer] ADMINISTRATOR [facility] MATERNAL & CHILD [facility] 1.2.840.114 350.1.13.10 4.2.7.2.686 [id number] 107 [id number] [facility] 2021-03-15 00:00:00 2021-03-15 00:00:00 Patient Secure Msg Justin Siria Stokes [facility] [employer] ADMINISTRATOR [facility] & CHILD [facility] 1.2.840.114 350.1.13.10 4.2.7.2.686 [id number] [facility] 2021-03-14 00:00:00 2021-03-14 00:00:00 Telephone AndersonSiria [facility] [employer] ADMINISTRATOR [facility] & CHILD [facility] 1.2.840.114 350.1.13.10 4.2.7.2.686 [id number] 107 [id number] [facility] 2021-03-13 00:00:00 2021-03-13 00:00:00 Aaron Dykes [facility] [employer] ADMINISTRATOR [facility] MATERNAL & CHILD [facility] 1.2.840.114 350.1.13.10 4.2.7.2.686 [id number] [facility] 2021-03-13 00:00:00 2021-03-13 00:00:00 Refill Siria Anderson [facility] [employer] ADMINISTRATOR [facility] & CHILD [facility] 1.2.840.114 350.1.13.10 4.2.7.2.686 [id number] 107 [id number] [facility] 2021-03-10 00:00:00 2021-03-10 00:00:00 RefSiria Webb [facility] [employer] ADMINISTRATOR [facility] & CHILD [facility] 1.2.840.114 350.1.13.10 4.2.7.2.686 [id number] 107 [id number] [facility] 2021-03-10 00:00:00 2021-03-10 00:00:00 Aaron Dykes [facility] [employer] ADMINISTRATOR [facility] MATERNAL & CHILD [facility] 1.2.840.114 350.1.13.10 4.2.7.2.686 [id number] [facility] 2021-03-09 15:45:00 2021-03-09 16:18:23 Outpatient SIRIA MAGANA [facility] [id number] [facility] 2021-03-09 15:45:00 2021-03-09 16:18:23 Routine Visit Siria Anderson [facility] [[email or web address]] INTER[employer] SYSTEM[employer] ADMINISTRATOR [facility] & CHILD [facility] 1.2.840.114 350.1.13.10 4.2.7.2.686 [id number] 107 [id number] [facility] 2021-03-09 00:00:00 2021-03-09 00:00:00 Aaron Dykes [facility] [employer] ADMINISTRATOR [facility] & CHILD [facility] 1.2.840.114 350.1.13.10 4.2.7.2.686 [id number] [facility] 2021-03-09 00:00:00 2021-03-09 00:00:00 Siria Lechuga [facility] [[email or web address]] INTER[employer] SYSTEM[employer] ADMINISTRATOR [facility] & CHILD [facility] 1.2.840.114 350.1.13.10 4.2.7.2.686 [id number] 107 [id number] [facility] 2021-03-08 15:45:00 2021-03-08 15:45:00 Outpatient SIRIA MAGANA [facility] [id number] [facility] 2021-02-22 10:00:00 2021-02-22 11:57:26 Outpatient R AARON ALICEA [facility] [id number] [facility] 2021-02-22 09:59:09 2021-02-22 11:57:26 Routine Visit Provider, Aaron Barlow [facility] [employer] ADMINISTRATOR [facility] MATERNAL & CHILD [facility] 1.2.840.114 350.1.13.10 4.2.7.2.686 [id number] 107 [id number] [facility] 2021-02-13 10:52:00 2021-02-13 11:22:00 Food Service Representative Visit Ultrasound, Silvana Ruff [facility] [employer] ADMINISTRATOR [facility] & CHILD [facility] 1.2.840.114 350.1.13.10 4.2.7.2.686 [id number] [facility] 2021-02-13 10:45:00 2021-02-13 10:45:00 Outpatient SILVANA WESLEY SANGEETA [facility] [id number] [facility] 2021-02-13 00:00:00 2021-02-13 00:00:00 Case Management Bo Rivera [facility] [employer] ADMINISTRATOR [facility] MATERNAL & CHILD [facility] 1..840.114 350.1.13.10 4.2.7.2.686 [id number] 107 [id number] [facility] 2021-02-03 00:00:00 2021-02-03 00:00:00 Telephone Aaron Alicea [facility] [employer] ADMINISTRATOR [facility] MATERNAL & CHILD [facility] 1..840.114 350.1.13.10 4.2.7.2.686 [id number] [facility] 2021-02-01 10:45:00 2021-02-01 11:09:09 Outpatient BO MIRANDA [facility] [id number] [facility] 2021-02-01 10:04:55 2021-02-01 11:09:09 Routine Visit Provider, Ang-Rmchp Bo Jorgensen [facility] [employer] ADMINISTRATOR [facility] MATERNAL & CHILD [facility] 1.2.840.114 350.1.13.10 4.2.7.2.686 [id number] 107 [id number] [facility] 2021-01-31 00:00:00 2021-01-31 00:00:00 Refill Onofre [facility] 1.2.840.114 350.1.13.10 4.2.7.2.686 [id number] 370 [id number] [facility] 2021-01-30 00:00:00 2021-01-30 00:00:00 Telephone Aaron Alicea [facility] [employer] ADMINISTRATOR [facility] MATERNAL & CHILD [facility] 1..840.114 350.1.13.10 4.2.7.2.686 [id number] 107 [id number] [facility] 2021-01-29 00:00:00 2021-01-29 00:00:00 Refill Siria Anderson [facility] [employer] ADMINISTRATOR [facility] & CHILD [facility] 1..840.114 350.1.13.10 4.2.7.2.686 [id number] 107 [id number] [facility] 2021-01-29 00:00:00 2021-01-29 00:00:00 Refill Onofre [facility] 1..840.114 350.1.13.10 4.2.7.2.686 [id number] 370 [id number] [facility] 2021-01-19 14:40:00 2021-01-19 15:06:44 Outpatient AMAYA HARDIN [facility] [id number] [facility] 2021-01-19 14:22:57 2021-01-19 15:06:44 [facility] 1..114 350.1.13.10 4.2.7.2.686 [id number] [facility] 2021-01-04 00:00:00 2021-01-04 00:00:00 Telephone AndersonSiria [facility] [[email or web address]] INTERNET SYSTEM[employer] ADMINISTRATOR [facility] MATERNAL & CHILD [facility] 1.20.114 350.1.13.10 4.2.7.2.686 [id number] 107 [id number] [facility] 2021-01-03 00:00:00 2021-01-03 00:00:00 Telephone JustinSiria [facility] [[email or web address]] INTER[employer] SYSTEMS ADMINISTRATOR [facility] & CHILD [facility] 1..114 350.1.13.10 4.2.7.2.686 [id number] 107 [id number] [facility] 2021-01-03 00:00:00 2021-01-03 00:00:00 Telephone Anderson Ludakali [facility] [[email or web address]] INTERNET SYSTEMS ADMINISTRATOR [facility] MATERNAL & CHILD [facility] 1..114 350.1.13.10 4.2.7.2.686 [id number] 107 [id number] [facility] 2021-01-02 10:45:39 2021-01-02 11:10:03 Routine Visit Provider, Aaron Barlow [facility] [employer] ADMINISTRATOR [facility] MATERNAL & CHILD [facility] 1..114 350.1.13.10 4.2.7.2.686 [id number] 107 [id number] [facility] 2021-01-02 10:45:00 2021-01-02 10:45:00 Outpatient R [facility] [id number] [facility] 2020-12-21 10:52:25 2020-12-21 11:26:21 Office Visit Palmira Phillips, Yair Borjas [facility] 1..114 350.1.13.10 4.2.7.2.686 [id number] [facility] 2020-12-21 10:30:00 2020-12-21 10:30:00 Outpatient P [facility] [id number] [facility] 2020-12-19 08:20:30 2020-12-19 09:35:30 Food Service Representative Visit Ultrasound, Gianni Virk [facility] [employer] ADMINISTRATOR [facility] MATERNAL & CHILD [facility] 1..840.114 350.1.13.10 4.2.7.2.686 [id number] [facility] 2020-12-19 08:00:00 2020-12-19 08:00:00 Outpatient P [facility] [id number] [facility] 2020-12-19 00:00:00 2020-12-19 00:00:00 Abstract Siria Anderson [facility] [employer] ADMINISTRATOR [facility] & CHILD [facility] 1..840.114 350.1.13.10 4.2.7.2.686 [id number] 107 [id number] [facility] 2020-12-07 00:00:00 2020-12-07 00:00:00 Telephone Siria Anderson [facility] [employer] ADMINISTRATOR [facility] CHILD [facility] 1.2.840.114 350.1.13.10 4.2.7.2.686 [id number] 107 [id number] [facility] 2020-12-05 10:15:59 2020-12-05 10:54:56 Routine Visit Siria Anderson [facility] [employer] ADMINISTRATOR [facility] & CHILD [facility] 1.2.840.114 350.1.13.10 4.2.7.2.686 [id number] 107 [id number] [facility] 2020-12-05 10:15:59 2020-12-05 10:54:56 Routine Visit Siria Anderson [facility] [employer] ADMINISTRATOR [facility] & CHILD [facility] 1.2840.114 350.1.13.10 4.2.7.2.686 [id number] 107 [id number] [facility] 2020-12-05 10:15:00 2020-12-05 10:15:00 Outpatient SIRIA MAGANA [facility] [id number] [facility] 2020-11-07 08:42:18 2020-11-07 09:41:48 Routine Visit Siria Anderson [facility] [employer] ADMINISTRATOR [facility] & CHILD [facility] 1.840.114 350.1.13.10 4.2.7.2.686 [id number] [facility] 2020-11-07 08:45:00 2020-11-07 08:45:00 Outpatient SIRIA MAGANA [facility] [id number] [facility] 2020-11-01 00:00:00 2020-11-01 00:00:00 Telephone Siria Anderson [facility] [employer] ADMINISTRATOR [facility] CHILD [facility] 1.840.114 350.1.13.10 4.2.7.2.686 [id number] 107 [id number] [facility] 2020-10-27 00:00:00 2020-10-27 00:00:00 Patient Secure Msg Doctor Unassigned, Melody Hill [facility] [employer] ADMINISTRATOR [facility] CHILD [facility] 1.20.114 350.1.13.10 4.2.7.2.686 [id number] 107 [id number] [facility] 2020-10-27 00:00:00 2020-10-27 00:00:00 Telephone Siria Anderson [facility] [[email or web address]] INTERNET SYSTEMS ADMINISTRATOR [facility] CHILD [facility] 1.2.840.114 350.1.13.10 4.2.7.2.686 [id number] 107 [id number] [facility] 2020-10-26 00:00:00 2020-10-26 00:00:00 Telephone Siria Anderson [facility] [employer] ADMINISTRATOR [facility] MATERNAL & CHILD [facility] 1.2.840.114 350.1.13.10 4.2.7.2.686 [id number] 107 [id number] [facility] 2020-10-19 13:59:38 2020-10-19 14:29:38 Food Service Representative Visit Ultrasound, Cristin Jones [facility] [employer] ADMINISTRATOR [facility] & CHILD [facility] 1.2840.114 350.1.13.10 4.2.7.2.686 [id number] [facility] 2020-10-19 14:00:00 2020-10-19 14:00:00 Outpatient P [facility] [id number] [facility] 2020-10-19 00:00:00 2020-10-19 00:00:00 Abstract Siria Anderson [facility] [employer] ADMINISTRATOR [facility] & CHILD [facility] 1.2840.114 350.1.13.10 4.2.7.2.686 [id number] 107 [id number] [facility] 2020-10-10 08:57:06 2020-10-10 09:57:15 Initial Visit Siria Anderson [facility] [employer] ADMINISTRATOR [facility] CHILD [facility] 1.2840.114 350.1.13.10 4.2.7.2.686 [id number] 107 [id number] [facility] 2020-10-10 08:30:00 2020-10-10 08:30:00 Outpatient R [facility] [id number] [facility] 2020-10-10 00:00:00 2020-10-10 00:00:00 Orders Only Doctor Unassigned, Melody Hill [facility] 1.2840.114 350.1.13.10 4.2.7.2.686 [id number] [facility] 2020-06-24 16:00:00 2020-06-24 16:00:00 Outpatient R LENY [facility] [id number] [facility] 2020-06-24 11:27:53 2020-06-24 11:49:24 Office Visit Leny [facility] Building 1.2840.114 350.1.13.10 4.2.7.2.686 [id number] [facility] 2020-06-24 11:00:00 2020-06-24 11:00:00 Outpatient R LENY [facility] [id number] [facility] 2020-06-14 00:00:00 2020-06-14 00:00:00 Patient Outreach Reji Cruz [facility] 1.840.114 350.1.13.10 4.2.7.2.686 [id number] [facility] 2020-06-08 19:38:00 2020-06-09 12:50:00 Emergency Ann, Emma [place], Zoe S Leny [facility] 1.2840.114 350.1.13.10 4.2.7.2.686 [id number] [facility] 2020-06-08 18:59:31 2020-06-08 19:19:31 Urgent Care Provider, [facility] Urgent Care Saadia Lovett [facility] Office Building [facility] 1.2840.114 350.1.13.10 4.2.7.2.686 [id number] [facility] 2020-06-08 18:40:00 2020-06-08 18:40:00 Outpatient SAADIA RAZO [facility] [id number] [facility] 2020-05-24 13:16:03 2020-05-24 14:05:26 [facility] 1.2.840.114 350.1.13.10 4.2.7.2.686 [id number] [facility] 2020-05-24 13:00:00 2020-05-24 13:00:00 [id number] 2020-05-19 13:00:00 2020-05-19 13:00:00 Outpatient R YOVANY DIOR [facility] [id number] [facility] 2020-05-19 00:00:00 2020-05-19 00:00:00 Orders Only Doctor Unassigned, Melody Hill [facility] 1.2840.114 350.1.13.10 4.2.7.2.686 [id number] [facility] 2020-03-28 19:14:32 2020-03-28 19:51:01 [facility] 1.2.840.114 350.1.13.10 4.2.7.2.686 [id number] [facility] 2020-03-28 19:20:00 2020-03-28 19:20:00 Outpatient R [facility] [id number] [facility] 2020-03-28 00:00:00 2020-03-28 00:00:00 Letter (Out) Doctor Unassigned, [place] [facility] 1.2840.114 [id number] [id number] [id number] [facility] 2020-01-15 08:15:00 2020-01-15 08:15:00 Outpatient R JAIME CLEMENT [facility] [id number] [facility] 2019-03-12 14:26:14 2019-03-12 23:59:00 Outpatient JAIME CLEMENT [facility] [id number] [facility] Results Test Description Test Time Test Comments Results Result Co mments Source [facility] ONLY - SYPHILIS [id number] 16:24:15* Test Item Value Reference Range Interpretation Comme nts Syphilis IgG/IgM (test code = 07909-2) Non-reactive Non-reactive VASHTI (test code = VASHTI) Non-reactive - No serologic evidence of T. pallidum infection. Cannot exclude incubating or early syphilis. Submit a second specimen in 2-4 weeks if syphilis is clinically suspected. Equivocal - Further testing to follow. Reactive - Further testing to follow. Lab Interpretation (test code = 28098-8) Normal [facility] ONLY - SYPHILIS [id number] 16:24:15* Test Item Value Reference Range Interpretation Comme nts Syphilis IgG/IgM (test code = 11669-1) Non-reactive Non-reactive VASHTI (test code = VASHTI) Non-reactive - No serologic evidence of T. pallidum infection. Cannot exclude incubating or early syphilis. Submit a second specimen in 2-4 weeks if syphilis is clinically suspected. Equivocal - Further testing to follow. Reactive - Further testing to follow. Lab Interpretation (test code = 76138-5) [facility] 07:09:19* Test Item Value Reference Range Interpretation Comme nts HGB A1C (test code = 4548-4) 5.3 % 4.0-5.7 VASHTI (test code = VASHTI) Reference RangesNormal: <5.7%Prediabetes: 5.7 - 6.4%Diabetes: > 6.5% Lab Interpretation (test code = 43569-0) [facility]2022-10-03 07:09:19* Test Item Value Reference Range Interpretation Comme nts HGB A1C (test code = 4548-4) 5.3 % 4.0-5.7 VASHTI (test code = VASHTI) Reference RangesNormal: <5.7%Prediabetes: 5.7 - 6.4%Diabetes: > 6.5% Lab Interpretation (test code = 84418-6) Normal [facility] [facility] [id number] 06:09:39* Test Item Value Reference Range Interpretation Comme nts HIV Semi-quantitative (test code = 36858-4) 0.09 Negative VASHTI (test code = VASHTI) Non-reactive for HIV-1 antigen and HIV-1/HIV-2 antibodies. ?No laboratory evidence of HIV infection. ?Repeat in 2-4 weeks if acute HIV infection is suspected. [facility] [id number] 06:09:39* Test Item Value Reference Range Interpretation Comme nts HCV Ab (test code = 15691-3) Negative HCV Semi-Quantitative (test code = 29362-0) 0.03 [facility] WITH [id number] 06:09:39* Test Item Value Reference Range Interpretation Comme nts HIV Semi-quantitative (test code = 26877-3) 0.09 Negative VASHTI (test code = VASHTI) Non-reactive for HIV-1 antigen and HIV-1/HIV-2 antibodies. ?No laboratory evidence of HIV infection. ?Repeat in 2-4 weeks if acute HIV infection is suspected. [facility] [id number] 06:09:39* Test Item Value Reference Range Interpretation Comme nts HCV Ab (test code = 65819-9) Negative HCV Semi-Quantitative (test code = 52012-4) 0.03 [facility] WITH [id number] 05:35:17* Test Item Value Reference Range Interpretation Comme nts WBC (test code = 6690-2) 9.97 See_Comment [Automated messa ge] The system which generated this result transmitted reference range: 4.30 - 11.10 10*3/?L. The reference range was not used to interpret this result as normal/abnormal. RBC (test code = 789-8) 5.20 See_Comment [Automated messa ge] The system which generated this result transmitted reference range: 3.93 - 5.25 10*6/?L. The reference range was not used to interpret this result as normal/abnormal. HGB (test code = 718-7) 13.5 g/dL 11.6-15.0 HCT (test code = 4544-3) 42.6 % 35.7-45.2 MCV (test code = 787-2) 81.9 fL 80.6-95.5 MCH (test code = 785-6) 26.0 pg 25.9-32.8 MCHC (test code = 786-4) 31.7 g/dL 31.6-35.1 RDW-SD (test code = 04841-7) 38.7 fL 39.0-49.9 L RDW-CV (test code = 788-0) 13.0 % 12.0-15.5 PLT (test code = 777-3) 442 See_Comment H [Automated messa ge] The system which generated this result transmitted reference range: 166 - 358 10*3/?L. The reference range was not used to interpret this result as normal/abnormal. MPV (test code = 28773-6) 10.9 fL 9.5-12.9 NRBC/100 WBC (test code = 9861883838) 0.0 See_Comment [Automated [employer] ssage] The system which generated this result transmitted reference range: 0.0 - 10.0 /100 WBCs. The reference range was not used to interpret this result as normal/abnormal. NRBC x10^3 (test code = 2073860721) See_Comment [Automated messa ge] The system which generated this result transmitted reference range: 10*3/?L. The reference range was not used to interpret this result as normal/abnormal. GRAN MAT (NEUT) % (test code = 770-8) 61.3 % IMM GRAN % (test code = 6616997345) 0.20 % LYMPH % (test code = 736-9) 32.8 % MONO % (test code = 5905-5) 4.5 % EOS % (test code = 713-8) 0.9 % BASO % (test code = 706-2) 0.3 % GRAN MAT x10^3(ANC) (test code = 6717875212) 6.11 10*3/uL 1.88-7.09 IMM GRAN x10^3 (test code = 8982618663) 0.00-0.06 LYMPH x10^3 (test code = 731-0) 3.27 10*3/uL 1.32-3.29 MONO x10^3 (test code = 742-7) 0.45 10*3/uL 0.33-0.92 EOS x10^3 (test code = 711-2) 0.09 10*3/uL 0.03-0.39 BASO x10^3 (test code = 704-7) 0.03 10*3/uL 0.01-0.07 Lab Interpretation (test code = 55846-9) Abnormal [facility] WITH [id number] 05:35:17* Test Item Value Reference Range Interpretation Comme nts WBC (test code = 6690-2) 9.97 See_Comment [Automated messa ge] The system which generated this result transmitted reference range: 4.30 - 11.10 10*3/?L. The reference range was not used to interpret this result as normal/abnormal. RBC (test code = 789-8) 5.20 See_Comment [Automated messa ge] The system which generated this result transmitted reference range: 3.93 - 5.25 10*6/?L. The reference range was not used to interpret this result as normal/abnormal. HGB (test code = 718-7) 13.5 g/dL 11.6-15.0 HCT (test code = 4544-3) 42.6 % 35.7-45.2 MCV (test code = 787-2) 81.9 fL 80.6-95.5 MCH (test code = 785-6) 26.0 pg 25.9-32.8 MCHC (test code = 786-4) 31.7 g/dL 31.6-35.1 RDW-SD (test code = 43122-4) 38.7 fL 39.0-49.9 L RDW-CV (test code = 788-0) 13.0 % 12.0-15.5 PLT (test code = 777-3) 442 See_Comment H [Automated messa ge] The system which generated this result transmitted reference range: 166 - 358 10*3/?L. The reference range was not used to interpret this result as normal/abnormal. MPV (test code = 75381-0) 10.9 fL 9.5-12.9 NRBC/100 WBC (test code = 6044009853) 0.0 See_Comment [Automated me ssage] The system which generated this result transmitted reference range: 0.0 - 10.0 /100 WBCs. The reference range was not used to interpret this result as normal/abnormal. NRBC x10^3 (test code = 7234401832) See_Comment [Automated messa ge] The system which generated this result transmitted reference range: 10*3/?L. The reference range was not used to interpret this result as normal/abnormal. GRAN MAT (NEUT) % (test code = 770-8) 61.3 % IMM GRAN % (test code = 4755228947) 0.20 % LYMPH % (test code = 736-9) 32.8 % MONO % (test code = 5905-5) 4.5 % EOS % (test code = 713-8) 0.9 % BASO % (test code = 706-2) 0.3 % GRAN MAT x10^3(ANC) (test code = 6499920080) 6.11 10*3/uL 1.88-7.09 IMM GRAN x10^3 (test code = 8836118312) 0.00-0.06 LYMPH x10^3 (test code = 731-0) 3.27 10*3/uL 1.32-3.29 MONO x10^3 (test code = 742-7) 0.45 10*3/uL 0.33-0.92 EOS x10^3 (test code = 711-2) 0.09 10*3/uL 0.03-0.39 BASO x10^3 (test code = 704-7) 0.03 10*3/uL 0.01-0.07 Lab Interpretation (test code = 52309-5) Abnormal [facility] [id number] 16:35:00* Test Item Value Reference Range Interpretation Comme nts POCT PREG (test code = 1605) Negative On board controls acceptable with C Line (test code = 3574) Yes POCT PREG LOT # (test code = 3575) POCT PREG TEST DATE ( test code = 3576) [facility] [id number] 16:35:00* Test Item Value Reference Range Interpretation Comme nts POCT PREG (test code = 1605) Negative On board controls acceptable with C Line (test code = 3574) Yes POCT PREG LOT # (test code = 3575) POCT PREG TEST DATE ( test code = 3576) [facility] [id number] 15:41:00* Test Item Value Reference Range Interpretation Comme nts POCT PREG (test code = 1605) Negative On board controls acceptable with C Line (test code = 3574) Yes POCT PREG LOT # (test code = 3575) POCT PREG TEST DATE ( test code = 3576) [facility] [id number] 15:41:00* Test Item Value Reference Range Interpretation Comme nts POCT PREG (test code = 1605) Negative On board controls acceptable with C Line (test code = 3574) Yes POCT PREG LOT # (test code = 3575) POCT PREG TEST DATE ( test code = 3576) [facility] [id number] 15:41:00* Test Item Value Reference Range Interpretation Comme nts POCT PREG (test code = 1605) Negative On board controls acceptable with C Line (test code = 3574) Yes POCT PREG LOT # (test code = 3575) POCT PREG TEST DATE ( test code = 3576) [facility] [id number] 15:41:00* Test Item Value Reference Range Interpretation Comme nts POCT PREG (test code = 1605) Negative On board controls acceptable with C Line (test code = 3574) Yes POCT PREG LOT # (test code = 3575) POCT PREG TEST DATE ( test code = 3576) [id number] 15:41:00* Test Item Value Reference Range Interpretation Comme nts POCT PREG (test code = 1605) Negative On board controls acceptable with C Line (test code = 3574) Yes POCT PREG LOT # (test code = 3575) POCT PREG TEST DATE ( test code = 3576) [facility]ETHANOL2022-[facility]-10 16:42:23 ALCOHOL<10mg/dL03/03/2022 10:42 AM [facility]10 Qthfiykc62-758 Toxic>100 Depression of 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>400 Fatalities ReportedUnCHRISTUS [facility] PAN[facility] (NA, K, CL, CO2, GLUCOSE, BUN, CREATININE, CA)2022-03-03 16:23:10* Test Item Value Reference Range Interpretation Comme nts NA (test code = 6268480618) 138 mmol/L 135-145 K (test code = 8759114601) 3.9 mmol/L 3.5-5.0 CL (test code = 1540181320) 106 mmol/L 98-108 CO2 TOTAL (test code = 8901026019) 24 mmol/L 23-31 AGAP (test code = 2124090375) 2-16 BUN (test code = 8582470657) 11 mg/dL 7-23 GLUCOSE (test code = 7699912749) 95 mg/dL 70-110 CREATININE (test code = 3410526467) 0.62 mg/dL 0.50-1.04 CALCIUM (test code = 0298798281) 9.4 mg/dL 8.6-10.6 eGFR (test code = 6774346515) mL/min/1.73m2 VASHTI (test code = VASHTI) Association of [...] or urine or abnormalities in imaging tests). [facility] WITH [id number] 16:19:13* Test Item Value Reference Range Interpretation Comme nts WBC (test code = 6690-2) See_Comment [Automated messa ge] The system which generated this result transmitted reference range: 4.30 - 11.10 10*3/?L. The reference range was not used to interpret this result as normal/abnormal. RBC (test code = 789-8) See_Comment [Automated messa ge] The system which generated this result transmitted reference range: 3.93 - 5.25 10*6/?L. The reference range was not used to interpret this result as normal/abnormal. HGB (test code = 718-7) 13.1 g/dL 11.6-15.0 HCT (test code = 4544-3) 40.0 % 35.7-45.2 MCV (test code = 787-2) 82.1 fL 80.6-95.5 MCH (test code = 785-6) 26.9 pg 25.9-32.8 MCHC (test code = 786-4) 32.8 g/dL 31.6-35.1 RDW-SD (test code = 79686-7) 38.5 fL 39.0-49.9 L RDW-CV (test code = 788-0) 12.9 % 12.0-15.5 PLT (test code = 777-3) See_Comment [Automated messa ge] The system which generated this result transmitted reference range: 166 - 358 10*3/?L. The reference range was not used to interpret this result as normal/abnormal. MPV (test code = 03197-0) 10.2 fL 9.5-12.9 NRBC/100 WBC (test code = 5000763499) See_Comment [Automated [employer] ssage] The system which generated this result transmitted reference range: 0.0 - 10.0 /100 WBCs. The reference range was not used to interpret this result as normal/abnormal. NRBC x10^3 (test code = 7126230280) See_Comment [Automated messa ge] The system which generated this result transmitted reference range: 10*3/?L. The reference range was not used to interpret this result as normal/abnormal. GRAN MAT (NEUT) % (test code = 770-8) 54.2 % IMM GRAN % (test code = 4502929860) 0.30 % LYMPH % (test code = 736-9) 39.1 % MONO % (test code = 5905-5) 5.1 % EOS % (test code = 713-8) 1.2 % BASO % (test code = 706-2) 0.1 % GRAN MAT x10^3(ANC) (test code = 2069817655) 3.94 10*3/uL 1.88-7.09 IMM GRAN x10^3 (test code = 3679289963) 0.00-0.06 LYMPH x10^3 (test code = 731-0) 2.84 10*3/uL 1.32-3.29 MONO x10^3 (test code = 742-7) 0.37 10*3/uL 0.33-0.92 EOS x10^3 (test code = 711-2) 0.09 10*3/uL 0.03-0.39 BASO x10^3 (test code = 704-7) 0.01-0.07 Lab Interpretation (test code = 62588-2) Abnormal [facility] [id number] 20:48:00* Test Item Value Reference Range Interpretation Comme nts POCT PREG (test code = 1605) Negative On board controls acceptable with C Line (test code = 3574) Yes POCT PREG LOT # (test code = 3575) POCT PREG TEST DATE ( test code = 3576) [facility] URINALYSIS W SPECIFIC [id number] 22:32:00* Test Item Value Reference Range Interpretation Comme nts POCT U SP GRAV (test code = 3255) 1.020 mg/dl 1.005-1.025 POCT PH U (test code = 3254) 5.0 mg/dl 5-8 POCT U LEUK EST (test code = 3263) 1+ Negative - Negative POCT U NIT (test code = 3262) negative Negative - Negative POCT U PROT (test code = 3259) trace Negative - Negative POCT U GLU (test code = 3256) normal Negative - Negative POCT U KETONE (test code = 3258) negative Negative - Negative POCT U UROBILI (test code = 3260) normal 0.2-1 POCT U BILI (test code = 3261) negative Negative - Negative POCT U BLD (test code = 3257) trace Negative - Negative POCT U COLOR (test code = 3266) yellow POCT U APPEAR (test code = 3267) clear VASHTI (test code = VASHTI) accurate development and interpretation of all internal controls [facility] SPECIFIC [id number] 22:32:00* Test Item Value Reference Range Interpretation Comme nts POCT U SP GRAV (test code = 3255) 1.020 mg/dl 1.005-1.025 POCT PH U (test code = 3254) 5.0 mg/dl 5-8 POCT U LEUK EST (test code = 3263) 1+ Negative - Negative POCT U NIT (test code = 3262) negative Negative - Negative POCT U PROT (test code = 3259) trace Negative - Negative POCT U GLU (test code = 3256) normal Negative - Negative POCT U KETONE (test code = 3258) negative Negative - Negative POCT U UROBILI (test code = 3260) normal 0.2-1 POCT U BILI (test code = 3261) negative Negative - Negative POCT U BLD (test code = 3257) trace Negative - Negative POCT U COLOR (test code = 3266) yellow POCT U APPEAR (test code = 3267) clear VASHTI (test code = VASHTI) accurate development and interpretation of all internal controls [facility] [id number] 15:36:00* Test Item Value Reference Range Interpretation Comme nts POCT PREG (test code = 1605) Negative On board controls acceptable with C Line (test code = 3574) Yes POCT PREG LOT # (test code = 3575) POCT PREG TEST DATE ( test code = 3576) [facility] Notes Date/Time Note Provider Source 2022-12-05 10:12:02 qUXfnRYR2e4K+RgDiya yeovjtCvpng8L8FoFR DnEt0P51v8apl1eX4KlsuHZ3ts1964-30-25E3 0:12:02 [facility] [place] state they did not ever get the prescription. Contacted the patient and she also has not received the prescription. She is requesting they be resent to [facility] in [place]. Re-ordered original prescription and sent to [facility] per patient request. 39244-9Pdufmpdaz encounter FijbIG2490-24-03R90:14:39Telephone encounter NoteTXT1.2.840.851022.1.13.104.2.7.2.7 97571|[id number] for patient oduj84919-2YfdvUARAJRZBKJ[id number] JBGPIVUVWDTOVOCBPSKS5135-30-28L67:14:3 91.2.840.133682.1.72.3.15|1.2.840.1143 [id number] [facility] 2022-12-04 18:01:37 Hs6T2BCMlriYzi+Wjep+ JINx0oU4a8ZqHZp9b5 b6qyFA2G3r/+9nkYCPpVOo7qdC7364-17-60F6 8:01:37 Thao Lang is a 27 year old femaleTammy from [facility] are wanting the prescriptions transferred. Please advise azelastine 137 mcg (0.1 %) nasal zjuhwkakqwnpmllmzgkg-uxzqxrceclvmdfj-A M (BROMFED DM) 2-30-10 mg/5 mL syrupfluticasone propionate 50 mcg/actuation nasal spraymethylPREDNISolone (MEDROL, KRISTA,) 4 mg [facility] [place] [address] [facility] [address]Xms[place]: [phone] Sghkmzltyqwpny signed by Nate Mcleod at 12/04/2022 6:02 PM ISM32251-4Spyhchjbf encounter HvjjCL7398-60-77H41:02:30Telephone encounter NoteTXT1.2.840.717805.1.13.104.2.7.2.7 90658|[id number] for patient [id number] [address] QapwRwulvdslmShfwtcdzaZDRL7037384535ZB PXZZBFXONQZQEEUBCILK1502-63-99G97:02:3 01.2.840.392183.1.72.3.15|1.2.840.1143 [id number] Nate OviedoFormerly [facility]"
--- NOTE | 2023-06-03 13:41 | EDPHYS ---
Physician Documentation [facility] Name: Thao Lang Age: 28 yrs Sex: Female : 1995 Arrival Date: 06/03/2023 Time: 13:00 Bed 11 Private MD: ED Physician Lenard Gandara HPI: 06/02 13:38 This 28 yrs old Female presents to ER via Ambulatory with complaints of Fever, ec2 Congestion. 13:38 Patient with history of asthma arrives today with URI signs and symptoms. Patient ec2 reports she been having some cough and congestion as well as bilateral ear pain. Patient reports no issues with p.o. intake, no vomiting or diarrhea. Has been having some migraines, that have been responsive nicely to Tylenol and ibuprofen. Patient reports no issues with p.o. intake. Patient is a non-smoker, does regularly drink alcohol.. Historical: - Allergies: 13:29 No Known Allergies; kd3 - PMHx: 13:29 Asthma; kd3 - Immunization history:: Adult Immunizations up to date. - Social history:: Smoking status: Patient denies any tobacco usage or history of. ROS: 13:38 Constitutional: as per hpi ec2 Exam: 13:38 Constitutional: GEN: NAD Head: atraumatic Eyes: EOMI Ears: External ears are normal. ec2 Bilateral TMs are clear. Mouth: No posterior pharyngeal erythema or exudates appreciated. CV: regular rate LUNGS: no respiratory distress, no wheezes, rales, rhonchi ABD: non-distended SKIN: no evidence of rashes MSK: no evidence of trauma NEURO: moves all extremities equally Vital Signs: 13:27 BP 133 / 79; Pulse 84; Resp 15; Temp 98.6(O); Pulse Ox 100% on R/A; Weight 115.67 kg; kd3 Height 5 ft. 5 in. ; Pain 0/10; 13:27 Body Mass Index 42.43 (115.67 kg, 165.1 cm) kd3 13:27 Pain Scale: Adult kd3 MDM: 13:23 Patient medically screened. ec2 13:38 Data reviewed: vital signs. ED course: Patient arrives today for URI signs and ec2 symptoms. Examination remarkable for well-appearing nontoxic individual is otherwise in no acute distress with a reassuring cardiopulmonary examination. Patient does report increased sinus drainage as well as history of asthma as well as allergies, will set the patient on steroids, patient to continue OTC medications. Return precautions given.. Administered Medications: No medications were administered Disposition Summary: 06/03/23 13:40 Discharge Ordered Notes: Location: Home ec2 Condition: Stable ec2 Diagnosis - Viral infection, unspecified ec2 Followup: ec2 - With: Private Physician - When: - Reason: Re-evaluation by your physician Discharge Instructions: - Discharge Summary Sheet ec2 - Viral Illness, Adult ec2 Forms: - Medication Reconciliation Form ec2 - Thank You Letter ec2 - Antibiotic Education ec2 - Prescription Opioid Use ec2 - Patient Portal Instructions ec2 - Leadership Thank You Letter ec2 Prescriptions: - Prednisone 20 mg Oral Tablet - take 2 tablets ORAL route once daily for 5 days; 10 tablet; Refills: 0, Product ec2 Selection Permitted Signatures: Marita Alcala RN RN kd3 Lenard Gandara MD MD ec2
--- NOTE | 2023-06-03 13:41 | ER ---
Nurse's Notes [facility] Name: Thao Lang Age: 28 yrs Sex: Female : 1995 Arrival Date: 06/03/2023 Time: 13:00 Bed 11 Private MD: Diagnosis: Viral infection, unspecified Presentation: 06/02 13:27 Chief complaint: Patient states: I have had congestion, sore throat, and chills that kd3 started Saturday. I do not have a thermometer at home but i think i had a fever. I took ibuprofen this morning. I am not in any pain at the moment but i have also been having headaches. Coronavirus screen: Vaccine status: Patient reports being unvaccinated. Ebola Screen: No symptoms or risks identified at this time. Initial Sepsis Screen: Does the patient meet any 2 criteria? No. Patient's initial sepsis screen is negative. Does the patient have a suspected source of infection? No. Patient's initial sepsis screen is negative. Risk Assessment: Do you want to hurt yourself or someone else? Patient reports no desire to harm self or others. Onset of symptoms was June 03, 2023. 13:27 Method Of Arrival: Ambulatory kd3 13:27 Acuity: IZABELLA 4 kd3 Triage Assessment: 13:29 General: Appears ill, Behavior is calm, cooperative. Pain: Complains of pain in kd3 headaches. Respiratory: Breath sounds are clear bilaterally. Historical: - Allergies: 13:29 No Known Allergies; kd3 - PMHx: 13:29 Asthma; kd3 - Immunization history:: Adult Immunizations up to date. - Social history:: Smoking status: Patient denies any tobacco usage or history of. Assessment: 13:48 Reassessment: Patient is alert, oriented x 3, equal unlabored respirations, skin aa5 warm/dry/pink. Vital Signs: 13:27 BP 133 / 79; Pulse 84; Resp 15; Temp 98.6(O); Pulse Ox 100% on R/A; Weight 115.67 kg; kd3 Height 5 ft. 5 in. ; Pain 0/10; 13:27 Body Mass Index 42.43 (115.67 kg, 165.1 cm) kd3 13:27 Pain Scale: Adult kd3 ED Course: 13:03 Patient arrived in ED. ra3 13:04 Gandara, Lenard, MD is Attending Physician. ec2 13:29 Triage completed. kd3 13:29 Arm band placed on right wrist. kd3 13:48 No provider procedures requiring assistance completed. Patient did not have IV access aa5 during this emergency room visit. Administered Medications: No medications were administered Medication: 13:48 VIS not applicable for this client. aa5 Outcome: 13:40 Discharge ordered by MD. ec2 13:48 Discharged to home ambulatory, aa5 13:48 Condition: stable 13:48 Discharge instructions given to patient, Instructed on discharge instructions, follow up and referral plans. medication usage, Demonstrated understanding of instructions, follow-up care, medications, Prescriptions given X 1, 13:49 Patient left the ED. aa5 Signatures: Kia Baez, RN RN aa5 Marita Alcala, RN RN kd3 Lenard Gandara MD MD ec2 Nina Caro ra3
[2023-06-03 13:55] VITALS: BP 133/79; TEMP 98.6; O2SAT 100
== END ==
LOC: ER 13:00
DX: B34.9 Viral infection, unspecified (principal)
CPT/HCPCS: 99283

== ENCOUNTER 2023-07-12 11:38 | Emergency (ER) | payer SELFPAY ==
--- OUTSIDE RECORDS SUMMARY | 2023-07-12 11:43 | XMS REPORT | Continuity of Care Document ---
Author Name Unknown Address [address] [facility] [address] [place] [address] [facility] thconnect Address [address] [facility] [address] [place] [address] Care Team Providers Care Government Sales Manager Name Role Phone ESTEVAN ADAMS Primary Care Physician OMKAR Sierra Attending Clinician OMKAR Bender Attending Clinician JULISSA Marti Attending Clinician Unavailable JENNIFER PURI Attending Clinician Unavaila ESTEVAN Hills Attending Clinician Unavail able GC_GCBZW_Kadiyala_S Attending Clinician Unavaila galilea Adams Estevan SCHAEFFER Attending Clinician + Jessika Manrique MD Attending Clinician [phone] JESSIKA MANRIQUE Attending Clinician Unavailable Unknown, Attending Attending Clinician Unavailab Jennifer Simpson CNM Attending Clinician [phone] Doctor Unassigned, [place] Attending Clinician U SIRIA Dugan Attending Clinician Unavailab TIANA Argueta Attending Clinician Unavailable Tiana Antonio MD Attending Clinician [phone] Visit, [facility] Nurse Attending Clinician Siria Miller Attending Clinician + [phone] Maisha West RN Attending Clinician Unavailable PREZAS, EASTON Attending Clinician Unavailable Nurse, Naun Rmchp Exp Cprit Obgyn Attending Clini luis felipe Unavailable JODEE ALMAZAN Attending Clinician Unavailable King MARC, Jodee Suarez Attending Clinician [phone] Zbigniew Fernandez MD Attending Clinician + [phone] Mariluz MARC, Glen Attending Clinician [phone] Marlon MARC, Leonel Attending Clinician [phone] Ultrasound, Naun-Mfm Attending Clinician Unavaila Katelyn Hutchinson MD Attending Clinician + [phone] KATELYN CRUZ Attending Clinician Unavailable KATELYN CRUZ Attending Clinician Unavailable Lab, Ang-Rmchp Attending Clinician Unavailable Yelena Aaron SCHAEFFER Attending Clinician + AARON ALICEA Attending Clinician Unavail able Provider, [facility] Temp Attending Clinician Dalila vailable Jori MARC, Silvana Attending Clinician [phone] SILVANA VENEGAS Attending Clinician Unavailable SILVANA VENEGAS Attending Clinician Unavailable Sukhjinder RAMÍREZP, Bo Hunt Attending Clinician [phone] BO RIVERA Attending Clinician Unavailyahaira Adhikari ROTATING EQUIPMENT ENGINEER, Nguyễn Attending Clinician [phone] AMAYA PEÑA Attending Clinician Unavailable Casey RMAÍREZP, Amaya Attending Clinician [phone] Palmira Phillips Attending Clinician Unavailyahaira Escoto MD, Yair Borjas Attending Clinician [phone] Sherman MARC, Gianni Chou Attending Clinician [phone] Robbie Wolfe MD, Cristin Attending Clinician + Julissa Michele MD Attending Clinician +[phone] Reji Cruz DO Attending Clinician +[phone] Seth ROTATING EQUIPMENT ENGINEER, Emma Attending Clinician + [phone] Zoe Toledo MD Attending Clinician + [phone] Provider, [facility] Attending Clinician Un available Bony RAMÍREZP, Saadia Attending Clinician [phone] SAADIA LOVETT Attending Clinician Unavailable Delano Islas Attending Clinician [phone] DELANO HANKINS Attending Clinician UnavailYOVANY Barnhart Attending Clinician Unavailable JAIME CLEMENT Attending Clinician Unavailable GC_GCBZW_Kadiyala_S Admitting Clinician UnavailJODEE León Admitting Clinician Unavailable Jodee Almazan MD Admitting Clinician [phone] Julissa Michele MD Admitting Clinician Payers Payer Name Policy Type Policy Number Effective Date Expirati on Date Source [employer] [place] [employer] [id number] 2016 00:00:00 [place] [employer] [id number] 2022 00:00:00 MEDICAID PENDING PENDING 2020 00:00:00 Problems Condition Name Condition Details Condition Category Status Onset Date Resolution Date Last Treatment Date Treating Clinician Comments Source Presence of intrauteri ne contracept yamila device Presence of intrauteri ne contracept yamila device Disease Active 7-13 00:00: 00 [facility] History of abnormal cervical Pap smear History of abnormal cervical Pap smear Disease Active 7- 00:00: 00 Overview: Formattin g of this note might be different from the original. 09/2020 LGSIL [facility] Folliculit is Folliculit is Disease Active 4-12 00:00: 00 [facility] Flu vaccine need Flu vaccine need Disease Active 3-30 00:00: 00 [facility] Vaginal lesion Vaginal lesion Disease Active 3-30 00:00: 00 [facility] Research study patient Research study patient Disease Active 2-16 00:00: 00 Overview: Formattin g of this note might be different from the original. PACT (fellow) [facility] Elevated blood-pres sure reading, without diagnosis of hypertensi on Elevated blood-pres sure reading, without diagnosis of hypertensi on Disease Active 2-15 00:00: 00 [facility] COVID COVID Disease Active 2-01 00:00: 00 [facility] GBS (group B Streptococ cus carrier), +RV culture, currently GBS (group B Streptococ cus carrier), +RV culture, currently Disease Active 1-27 00:00: 00 Overview: Formattin g of this note might be different from the original. Address in labor and delivery. [facility] Upper respirator y symptom Upper respirator y symptom Disease Active 1-18 00:00: 00 [facility] Anemia of mother in , antepartum Anemia of mother in , antepartum Disease Active 2020-03 2-16 00:00: 00 [facility] Abnormal quad screen Abnormal quad screen Disease Active 2020-03 2-16 00:00: 00 [facility] Abnormal glandular Papanicola ou smear of cervix Abnormal glandular Papanicola ou smear of cervix Disease Active 8-04 00:00: 00 Overview: Formattin g of this note might be different from the original. LGSIL on 2020 pap smear, needs repeat in 12 months [facility] Supervisio n of high risk in third trimester Supervisio n of high risk in third trimester Disease Active 10-10 00:00: 00 [facility] SAB (spontaneo us ) SAB (spontaneo us ) Disease Active 7 00:00: 00 [facility] in first trimester with history of ectopic in first trimester with history of ectopic Disease Active 10-10 00:00: 00 [facility] Primigravi da in third trimester Primigravi da in third trimester Disease Active 10-10 00:00: 00 [facility] BMI 45.0-49.9, adult BMI 45.0-49.9, adult Disease Active 719 00:00: 00 [facility] History of ectopic History of ectopic Disease Active 4-02 00:00: 00 [facility] Screening examinatio n for STD (sexually transmitte d disease) Screening examinatio n for STD (sexually transmitte d disease) Disease Active 2-16 00:00: 00 [facility] Morbid obesity Morbid obesity Disease Active 1-06 00:00: 00 [facility] Allergies, Adverse Reactions, Alerts Allergy Name Allergy Type Status Severity Reaction(s) Onset Date Inactive Date Treating Clinician Comments Source NO KNOWN ALLERGIE S Drug Class Active [facility] Social History Social Habit Start Date Stop Date Quantity Comments Source History SDOH Alcohol Frequency [facility] History SDOH Alcohol Std Drinks [facility] History SDOH Alcohol Binge [facility] Gender identity [facility] Alcohol intake 2022-12-02 00:00:00 2022-12-02 00:00:00 Current drinker of alcohol (finding) [facility] History of Social function 2022-12-02 00:00:00 2022-12-02 00:00:00 [facility] Alcohol Comment 2022-10-02 00:00:00 2022-10-02 00:00:00 occasional [facility] Exposure to SARS-CoV-2 (event) 2022-04-20 00:00:00 2022-04-30 10:31:00 Not sure [facility] Tobacco use and exposure 2021-12-06 00:00:00 2021-12-06 00:00:00 Smokeless tobacco non-user [facility] Sex Assigned At 1995 00:00:00 1995 00:00:00 [facility] Smoking Status Start Date Stop Date Source Never smoked tobacco [facility] Medications Ordered Medication Name Filled Medication Name Start Date Stop Date Current Medication? Ordering Clinician Indication Dosage Frequency Signature (SIG) Comments Components Source azelastine 137 mcg (0.1 %) nasal spray 12-05 00:00: 00 Yes [id number] 1{spray } Use 1 [place] in each nostril in the morning and 1 [place] in the evening. Use in each nostril as directed [facility] bromphenira mine-pseudo ephedrine-D M (BROMFED DM) 2-30-10 mg/5 mL syrup 12-05 00:00: 00 Yes [id number] 10mL Take 10 mL by mouth 4 (four) times daily as needed for Congestion /Allergies , Cough or Cold symptoms. [facility] fluticasone propionate 50 mcg/actuati on nasal spray 12-05 00:00: 00 Yes [id number] 1{spray } Use 1 [place]lett in each nostril in the morning. [facility] methylPREDN ISolone (MEDROL, KRISTA,) 4 mg tablets 12-05 00:00: 00 Yes [id number] Take by mouth SEE-INSTRU CTIONS. follow package directions [facility] bromphenira mine-pseudo ephedrine-D M (BROMFED DM) 2-30-10 mg/5 mL syrup 12-02 00:00: 00 12-05 00:00 :00 No [id number] 10mL Take 10 mL by mouth 4 (four) times daily as needed for Congestion /Allergies , Cough or Cold symptoms. [facility] azelastine 137 mcg (0.1 %) nasal spray 12-02 00:00: 00 12-05 00:00 :00 No [id number] 1{spray } Use 1 Randlett in each nostril in the morning and 1 [place] in the evening. Use in each nostril as directed [facility] fluticasone propionate 50 mcg/actuati on nasal spray 12-02 00:00: 00 12-05 00:00 :00 No [id number] 1{spray } Use 1 [place]lett in each nostril in the morning. [facility] methylPREDN ISolone (MEDROL, KRISTA,) 4 mg tablets 12-02 00:00: 00 12-05 00:00 :00 No [id number] Take by mouth SEE-INSTRU CTIONS. follow package directions [facility] metroNIDAZO LE 500 mg tablet 10-04 00:00: 00 10-05 04:59 :00 No [id number] 2000mg Take 4 tablets by mouth once now for 1 dose. [facility] copper (PARAGARD T 380A) IUD 1 Intra Uterine Device 2-06 17:45: 00 04-30 17:01 :00 No [id number] 1{IUD} Corrie hernandez [facility] amoxicillin -clavulanat e (AUGMENTIN) 875-125 mg per tablet 2021-03 00:00: 00 02-01 05:59 :00 No [id number] 1{tbl} Take 1 tablet by mouth in the morning and 1 tablet in the evening. Do all this for 7 days. [facility] phenazopyri dine 100 mg tablet 2021-03 00:00: 00 01-27 04:59 :00 No [id number] 200mg Take 2 tablets by mouth in the morning and 2 tablets at noon and 2 tablets in the evening. Do all this for 2 days. [facility] levonorgest rel-ethinyl estradiol (SRONYX) 0.1-20 mg-mcg per tablet -14 00:00: 00 10-02 00:00 :00 No [id number] 1{tbl} Take 1 tablet by mouth in the morning. [facility] ondansetron 4 mg disintegrat ing tablet 07-03 00:00: 00 10-02 00:00 :00 No [id number] 4mg Take 1 tablet by mouth every 8 (eight) hours as needed for Nausea and Vomiting (N/V). [facility] norethindro ne 0.35 mg tablet 3-30 00:00: 00 10-02 00:00 :00 No [id number] 1{tbl} Take 1 tablet by mouth daily. [facility] Immunizations Ordered Immunization Name Filled Immunization Name Date Status Comments Source [facility] 2021-05-17 00:00:00 Completed [facility] 2021-05-17 00:00:00 Completed [facility] 2021-05-17 00:00:00 Completed [facility] 2021-05-17 00:00:00 Completed [place] [address] 2021-05-17 00:00:00 Completed [facility] HPV9 2021-05-17 00:00:00 Completed [facility] HPV9 2021-05-17 00:00:00 Completed [facility] HPV9 2021-05-17 00:00:00 Completed [facility] HPV9 2021-05-17 00:00:00 Completed [facility] HPV9 2021-05-17 00:00:00 Completed [facility] HPV9 2021-05-17 00:00:00 Completed [facility] HPV9 2021-05-17 00:00:00 Completed [facility] HPV9 2021-05-17 00:00:00 Completed [facility] HPV9 2021-05-17 00:00:00 Completed [facility] HPV9 2021-05-17 00:00:00 Completed [facility] HPV9 2021-05-17 00:00:00 Completed [facility] HPV9 2021-05-17 00:00:00 Completed [facility] HPV9 2021-05-17 00:00:00 Completed [facility] HPV9 2021-05-17 00:00:00 Completed [facility] HPV9 2021-05-17 00:00:00 Completed [facility] HPV9 2021-05-17 00:00:00 Completed [facility] HPV9 2021-05-17 00:00:00 Completed [facility] HPV9 2021-05-17 00:00:00 Completed [facility] HPV9 2021-05-17 00:00:00 Completed [facility] HPV9 2021-05-17 00:00:00 Completed [facility] HPV9 2021-05-17 00:00:00 Completed [facility] HPV9 2021-05-17 00:00:00 Completed [facility] TDAP 2021-02-22 00:00:00 Completed [facility] TDAP 2021-02-22 00:00:00 Completed [facility] TDAP 2021-02-22 00:00:00 Completed [facility] TDAP 2021-02-22 00:00:00 Completed [facility] TDAP 2021-02-22 00:00:00 Completed [facility] TDAP 2021-02-22 00:00:00 Completed [facility] TDAP 2021-02-22 00:00:00 Completed [facility] TDAP 2021-02-22 00:00:00 Completed [facility] TDAP 2021-02-22 00:00:00 Completed [facility] TDAP 2021-02-22 00:00:00 Completed [facility] TDAP 2021-02-22 00:00:00 Completed [facility] TDAP 2021-02-22 00:00:00 Completed [facility] TDAP 2021-02-22 00:00:00 Completed [facility] TDAP 2021-02-22 00:00:00 Completed [facility] TDAP 2021-02-22 00:00:00 Completed [facility] TDAP 2021-02-22 00:00:00 Completed [facility] TDAP 2021-02-22 00:00:00 Completed [facility] TDAP 2021-02-22 00:00:00 Completed [facility] TDAP 2021-02-22 00:00:00 Completed [facility] TDAP 2021-02-22 00:00:00 Completed [facility] TDAP 2021-02-22 00:00:00 Completed [facility] TDAP 2021-02-22 00:00:00 Completed [facility] TDAP 2021-02-22 00:00:00 Completed [facility] TDAP 2021-02-22 00:00:00 Completed [facility] TDAP 2021-02-22 00:00:00 Completed [facility] TDAP 2021-02-22 00:00:00 Completed [facility] TDAP 2021-02-22 00:00:00 Completed [facility] SARS-COV-2 COVID-19 MAURICIO/J&J VACCINE 2020-07-26 00:00:00 Completed [facility] SARS-COV-2 COVID-19 MAURICIO/J&J VACCINE 2020-07-26 00:00:00 Completed [facility] SARS-COV-2 COVID-19 MAURICIO/J&J VACCINE 2020-07-26 00:00:00 Completed [facility] SARS-COV-2 COVID-19 MAURICIO/J&J VACCINE 2020-07-26 00:00:00 Completed [facility] SARS-COV-2 COVID-19 MAURICIO/J&J VACCINE 2020-07-26 00:00:00 Completed [facility] SARS-COV-2 COVID-19 MAURICIO/J&J VACCINE 2020-07-26 00:00:00 Completed [facility] SARS-COV-2 COVID-19 MAURICIO/J&J VACCINE 2020-07-26 00:00:00 Completed [facility] SARS-COV-2 COVID-19 MAURICIO/J&J VACCINE 2020-07-26 00:00:00 Completed [facility] SARS-COV-2 COVID-19 MAURICIO/J&J VACCINE 2020-07-26 00:00:00 Completed [facility] SARS-COV-2 COVID-19 MAURICIO/J&J VACCINE 2020-07-26 00:00:00 Completed [facility] SARS-COV-2 COVID-19 MAURICIO/J&J VACCINE 2020-07-26 00:00:00 Completed [facility] SARS-COV-2 COVID-19 MAURICIO/J&J VACCINE 2020-07-26 00:00:00 Completed [facility] SARS-COV-2 COVID-19 MAURICIO/J&J VACCINE 2020-07-26 00:00:00 Completed [facility] SARS-COV-2 COVID-19 MAURICIO/J&J VACCINE 2020-07-26 00:00:00 Completed [facility] SARS-COV-2 COVID-19 MAURICIO/J&J VACCINE 2020-07-26 00:00:00 Completed [facility] SARS-COV-2 COVID-19 MAURICIO/J&J VACCINE 2020-07-26 00:00:00 Completed [facility] SARS-COV-2 COVID-19 MAURICIO/J&J VACCINE 2020-07-26 00:00:00 Completed [facility] SARS-COV-2 COVID-19 MAURICIO/J&J VACCINE 2020-07-26 00:00:00 Completed [facility] SARS-COV-2 COVID-19 MAURICIO/J&J VACCINE 2020-07-26 00:00:00 Completed [facility] SARS-COV-2 COVID-19 MAURICIO/J&J VACCINE 2020-07-26 00:00:00 Completed [facility] SARS-COV-2 COVID-19 MAURICIO/J&J VACCINE 2020-07-26 00:00:00 Completed [facility] SARS-COV-2 COVID-19 MAURICIO/J&J VACCINE 2020-07-26 00:00:00 Completed [facility] SARS-COV-2 COVID-19 MAURICIO/J&J VACCINE 2020-07-26 00:00:00 Completed [facility] SARS-COV-2 COVID-19 MAURICIO/J&J VACCINE 2020-07-26 00:00:00 Completed [facility] SARS-COV-2 COVID-19 MAURICIO/J&J VACCINE 2020-07-26 00:00:00 Completed [facility] SARS-COV-2 COVID-19 MAURICIO/J&J VACCINE 2020-07-26 00:00:00 Completed [facility] SARS-COV-2 COVID-19 MAURICIO/J&J VACCINE 2020-07-26 00:00:00 Completed [facility] HPV 2013-11-11 00:00:00 Completed [facility] HPV 2013-11-11 00:00:00 Completed [facility] HPV 2013-11-11 00:00:00 Completed [facility] HPV 2013-11-11 00:00:00 Completed [facility] HPV 2013-11-11 00:00:00 Completed [facility] HPV 2013-11-11 00:00:00 Completed [facility] HPV 2013-11-11 00:00:00 Completed [facility] HPV 2013-11-11 00:00:00 Completed [facility] HPV 2013-11-11 00:00:00 Completed [facility] HPV 2013-11-11 00:00:00 Completed [facility] HPV 2013-11-11 00:00:00 Completed [facility] HPV 2013-11-11 00:00:00 Completed [facility] HPV 2013-11-11 00:00:00 Completed [facility] HPV 2013-11-11 00:00:00 Completed [facility] HPV 2013-11-11 00:00:00 Completed [facility] HPV 2013-11-11 00:00:00 Completed [facility] HPV 2013-11-11 00:00:00 Completed [facility] HPV 2013-11-11 00:00:00 Completed [facility] HPV 2013-11-11 00:00:00 Completed [facility] HPV 2013-11-11 00:00:00 Completed [facility] HPV 2013-11-11 00:00:00 Completed [facility] HPV 2013-11-11 00:00:00 Completed [facility] HPV 2013-11-11 00:00:00 Completed [facility] HPV 2013-11-11 00:00:00 Completed [facility] HPV 2013-11-11 00:00:00 Completed [facility] HPV 2013-11-11 00:00:00 Completed [facility] HPV 2013-11-11 00:00:00 Completed [facility] HPV 2013-09-11 00:00:00 Completed [facility] HPV 2013-09-11 00:00:00 Completed [facility] HPV 2013-09-11 00:00:00 Completed [facility] HPV 2013-09-11 00:00:00 Completed [facility] HPV 2013-09-11 00:00:00 Completed [facility] HPV 2013-09-11 00:00:00 Completed [facility] HPV 2013-09-11 00:00:00 Completed [facility] HPV 2013-09-11 00:00:00 Completed [facility] HPV 2013-09-11 00:00:00 Completed [facility] HPV 2013-09-11 00:00:00 Completed [facility] HPV 2013-09-11 00:00:00 Completed [facility] HPV 2013-09-11 00:00:00 Completed [facility] HPV 2013-09-11 00:00:00 Completed [facility] HPV 2013-09-11 00:00:00 Completed [facility] HPV 2013-09-11 00:00:00 Completed [facility] HPV 2013-09-11 00:00:00 Completed [facility] HPV 2013-09-11 00:00:00 Completed [facility] HPV 2013-09-11 00:00:00 Completed [facility] HPV 2013-09-11 00:00:00 Completed [facility] HPV 2013-09-11 00:00:00 Completed [facility] HPV 2013-09-11 00:00:00 Completed [facility] HPV 2013-09-11 00:00:00 Completed [facility] HPV 2013-09-11 00:00:00 Completed [facility] HPV 2013-09-11 00:00:00 Completed [facility] HPV 2013-09-11 00:00:00 Completed [facility] HPV 2013-09-11 00:00:00 Completed [facility] HPV 2013-09-11 00:00:00 Completed [facility] HPV 2013-05-10 00:00:00 Completed [facility] HPV 2013-05-10 00:00:00 Completed [facility] HPV 2013-05-10 00:00:00 Completed [facility] HPV 2013-05-10 00:00:00 Completed [facility] HPV 2013-05-10 00:00:00 Completed [facility] HPV 2013-05-10 00:00:00 Completed [facility] HPV 2013-05-10 00:00:00 Completed [facility] HPV 2013-05-10 00:00:00 Completed [facility] HPV 2013-05-10 00:00:00 Completed [facility] HPV 2013-05-10 00:00:00 Completed [facility] HPV 2013-05-10 00:00:00 Completed [facility] HPV 2013-05-10 00:00:00 Completed [facility] HPV 2013-05-10 00:00:00 Completed [facility] HPV 2013-05-10 00:00:00 Completed [facility] HPV 2013-05-10 00:00:00 Completed [facility] HPV 2013-05-10 00:00:00 Completed [facility] HPV 2013-05-10 00:00:00 Completed [facility] HPV 2013-05-10 00:00:00 Completed [facility] HPV 2013-05-10 00:00:00 Completed [facility] HPV 2013-05-10 00:00:00 Completed [facility] HPV 2013-05-10 00:00:00 Completed [facility] HPV 2013-05-10 00:00:00 Completed [facility] HPV 2013-05-10 00:00:00 Completed [facility] HPV 2013-05-10 00:00:00 Completed [facility] HPV 2013-05-10 00:00:00 Completed [facility] HPV 2013-05-10 00:00:00 Completed [facility] HPV 2013-05-10 00:00:00 Completed [facility] Meningococcal Polysaccharide (groups A, C, Y and W-135) conjugate vaccine (MCV4P) 2012-10-16 00:00:00 Completed [place] [facility] Meningococcal Polysaccharide (groups A, C, Y and W-135) conjugate vaccine (MCV4P) 2012-10-16 00:00:00 Completed [facility] Meningococcal Polysaccharide (groups A, C, Y and W-135) conjugate vaccine (MCV4P) 2012-10-16 00:00:00 Completed [facility] Meningococcal Polysaccharide (groups A, C, Y and W-135) conjugate vaccine (MCV4P) 2012-10-16 00:00:00 Completed [facility] Meningococcal Polysaccharide (groups A, C, Y and W-135) conjugate vaccine (MCV4P) 2012-10-16 00:00:00 Completed [facility] Td 2010-10-28 00:00:00 Completed [facility] Td 2010-10-28 00:00:00 Completed [facility] Td 2010-10-28 00:00:00 Completed [facility] Td 2010-10-28 00:00:00 Completed [facility] Td 2010-10-28 00:00:00 Completed [facility] Td 2010-10-28 00:00:00 Completed [facility] Td 2010-10-28 00:00:00 Completed [facility] Td 2010-10-28 00:00:00 Completed [facility] Td 2010-10-28 00:00:00 Completed [facility] Td 2010-10-28 00:00:00 Completed [facility] Td 2010-10-28 00:00:00 Completed [facility] Td 2010-10-28 00:00:00 Completed [facility] TD, NOS 2010-10-28 00:00:00 Completed [facility] TD, NOS 2010-10-28 00:00:00 Completed [facility] TD, NOS 2010-10-28 00:00:00 Completed [facility] TD, NOS 2010-10-28 00:00:00 Completed [facility] TD, NOS 2010-10-28 00:00:00 Completed [facility] TD, NOS 2010-10-28 00:00:00 Completed [facility] TD, NOS 2010-10-28 00:00:00 Completed [facility] TD, NOS 2010-10-28 00:00:00 Completed [facility] TD, NOS 2010-10-28 00:00:00 Completed [facility] TD, NOS 2010-10-28 00:00:00 Completed [facility] TD, NOS 2010-10-28 00:00:00 Completed [facility] TD, NOS 2010-10-28 00:00:00 Completed [facility] TD, NOS 2010-10-28 00:00:00 Completed [facility] TD, NOS 2010-10-28 00:00:00 Completed [facility] TD, NOS 2010-10-28 00:00:00 Completed [facility] HEPATITIS A 2009-09-16 00:00:00 Completed [facility] HEPATITIS A 2009-09-16 00:00:00 Completed [facility] HEPATITIS A 2009-09-16 00:00:00 Completed [facility] HEPATITIS A 2009-09-16 00:00:00 Completed [facility] HEPATITIS A 2009-09-16 00:00:00 Completed [facility] HEPATITIS A 2008-07-28 00:00:00 Completed [facility] Meningococcal Polysaccharide (groups A, C, Y and W-135) conjugate vaccine (MCV4P) 2008-07-28 00:00:00 Completed [facility] MMR 2008-07-28 00:00:00 Completed [facility] TDAP 2008-07-28 00:00:00 Completed [facility] HEPATITIS A 2008-07-28 00:00:00 Completed [facility] Meningococcal Polysaccharide (groups A, C, Y and W-135) conjugate vaccine (MCV4P) 2008-07-28 00:00:00 Completed [facility] MMR 2008-07-28 00:00:00 Completed [facility] TDAP 2008-07-28 00:00:00 Completed [facility] HEPATITIS A 2008-07-28 00:00:00 Completed [facility] Meningococcal Polysaccharide (groups A, C, Y and W-135) conjugate vaccine (MCV4P) 2008-07-28 00:00:00 Completed [facility] MMR 2008-07-28 00:00:00 Completed [facility] TDAP 2008-07-28 00:00:00 Completed [facility] HEPATITIS A 2008-07-28 00:00:00 Completed [facility] Meningococcal Polysaccharide (groups A, C, Y and W-135) conjugate vaccine (MCV4P) 2008-07-28 00:00:00 Completed [facility] MMR 2008-07-28 00:00:00 Completed [facility] TDAP 2008-07-28 00:00:00 Completed [facility] HEPATITIS A 2008-07-28 00:00:00 Completed [facility] Meningococcal Polysaccharide (groups A, C, Y and W-135) conjugate vaccine (MCV4P) 2008-07-28 00:00:00 Completed [facility] MMR 2008-07-28 00:00:00 Completed [facility] TDAP 2008-07-28 00:00:00 Completed [facility] DTaP, Unspecified Formulation 2002-04-01 00:00:00 Completed [facility] MMR 2002-04-01 00:00:00 Completed [facility] IPV 2002-04-01 00:00:00 Completed [facility] DTaP, Unspecified Formulation 2002-04-01 00:00:00 Completed [facility] MMR 2002-04-01 00:00:00 Completed [facility] IPV 2002-04-01 00:00:00 Completed [facility] DTaP, Unspecified Formulation 2002-04-01 00:00:00 Completed [facility] MMR 2002-04-01 00:00:00 Completed [facility] IPV 2002-04-01 00:00:00 Completed [facility] DTaP, Unspecified Formulation 2002-04-01 00:00:00 Completed [facility] MMR 2002-04-01 00:00:00 Completed [facility] IPV 2002-04-01 00:00:00 Completed [facility] DTaP, Unspecified Formulation 2002-04-01 00:00:00 Completed [facility] MMR 2002-04-01 00:00:00 Completed [facility] IPV 2002-04-01 00:00:00 Completed [facility] DPT/HIB 1996 00:00:00 Completed [facility] Hep B, Unspecified Formulation 1996 00:00:00 Completed [facility] Poliovirus, Live, Oral, Trivalent 1996 00:00:00 Completed [facility] DPT/HIB 1996 00:00:00 Completed [facility] Hep B, Unspecified Formulation 1996 00:00:00 Completed [facility] Poliovirus, Live, Oral, Trivalent 1996 00:00:00 Completed [facility] DPT/HIB 1996 00:00:00 Completed [facility] Hep B, Unspecified Formulation 1996 00:00:00 Completed [facility] Poliovirus, Live, Oral, Trivalent 1996 00:00:00 Completed [facility] DPT/HIB 1996 00:00:00 Completed [facility] Hep B, Unspecified Formulation 1996 00:00:00 Completed [facility] Poliovirus, Live, Oral, Trivalent 1996 00:00:00 Completed [facility] DPT/HIB 1996 00:00:00 Completed [facility] Hep B, Unspecified Formulation 1996 00:00:00 Completed [facility] Poliovirus, Live, Oral, Trivalent 1996 00:00:00 Completed [facility] Hep B, Unspecified Formulation 1996 00:00:00 Completed [facility] Hep B, Unspecified Formulation 1996 00:00:00 Completed [facility] Hep B, Unspecified Formulation 1996 00:00:00 Completed [facility] Hep B, Unspecified Formulation 1996 00:00:00 Completed [facility] Hep B, Unspecified Formulation 1996 00:00:00 Completed [facility] TD, NOS Unknown Completed [facility] HPV Unknown Completed [facility] SARS-COV-2 COVID-19 MAURICIO/J&J VACCINE Unknown Completed [facility] TDAP Unknown Completed [facility] HPV Unknown Completed [facility] HPV Unknown Completed [facility] HPV9 Unknown Completed [facility] DTaP, Unspecified Formulation Unknown Completed [facility] DPT/HIB Unknown Completed [facility] HEPATITIS A Unknown Completed [facility] HEPATITIS A Unknown Completed [facility] Hep B, Unspecified Formulation Unknown Completed [facility] Hep B, Unspecified Formulation Unknown Completed [facility] Meningococcal Polysaccharide (groups A, C, Y and W-135) conjugate vaccine (MCV4P) Unknown Completed [facility] Meningococcal Polysaccharide (groups A, C, Y and W-135) conjugate vaccine (MCV4P) Unknown Completed [facility] MMR Unknown Completed [facility] MMR Unknown Completed [facility] IPV Unknown Completed [facility] Poliovirus, Live, Oral, Trivalent Unknown Completed [facility] TDAP Unknown Completed [facility] TD, NOS Unknown Completed [facility] HPV Unknown Completed [facility] SARS-COV-2 COVID-19 MAURICIO/J&J VACCINE Unknown [facility] HPV Unknown Completed [facility] HPV Unknown Completed [facility] HPV9 Unknown Completed [facility] DTaP, Unspecified Formulation Unknown Completed [facility] DPT/HIB Unknown Completed [facility]PATITIS A Unknown [facility] Com[facility] Hep B, Unspecified Formulation Unknown Completed [facility] Hep B, Unspecified Formulation Unknown Completed [facility] Meningococcal Polysaccharide (groups A, C, Y and W-135) conjugate vaccine (MCV4P) Unknown Completed [facility] Meningococcal Polysaccharide (groups A, C, Y and W-135) conjugate vaccine (MCV4P) Unknown Completed [facility] MMR Unknown Completed [facility] MMR Unknown Completed [facility] IPV Unknown Completed [facility] Poliovirus, Live, Oral, Trivalent Unknown Completed [facility] TDAP Unknown Completed [facility] TD, NOS Unknown Completed [facility] HPV Unknown Completed [facility] SARS-COV-2 COVID-19 MAURICIO/J&J VACCINE Unknown Completed [facility] TDAP Unknown Completed [facility] HPV Unknown Completed [facility] HPV Unknown Completed [facility] DTaP, Unspecified Formulation Unknown Completed [facility] DPT/HIB Unknown Completed [facility] HEPATITIS A Unknown Completed [facility] HEPATITIS A Unknown Completed [facility] Hep B, Unspecified Formulation Unknown Completed [facility] Hep B, Unspecified Formulation Unknown Completed [facility] Meningococcal Polysaccharide (groups A, C, Y and W-135) conjugate vaccine (MCV4P) Unknown Completed [facility] Meningococcal Polysaccharide (groups A, C, Y and W-135) conjugate vaccine (MCV4P) Unknown Completed [facility] MMR Unknown Completed [facility] MMR Unknown Completed [facility] IPV Unknown Completed [facility] Poliovirus, Live, Oral, Trivalent Unknown Completed [facility] TDAP Unknown Completed [facility] TD, NOS Unknown Completed [facility] HPV Unknown Completed [facility] SARS-COV-2 COVID-19 MAURICIO/J&J VACCINE Unknown Completed [facility] HPV Unknown Completed [facility] HPV Unknown Completed [facility] DTaP, Unspecified Formulation Unknown Completed [facility] DPT/HIB Unknown Completed [facility] HEPATITIS A Unknown Completed [facility] HEPATITIS A Unknown Completed [facility] Hep B, Unspecified Formulation Unknown Completed [facility] Hep B, Unspecified Formulation Unknown Completed [facility] Meningococcal Polysaccharide (groups A, C, Y and W-135) conjugate vaccine (MCV4P) Unknown Completed [facility] Meningococcal Polysaccharide (groups A, C, Y and W-135) conjugate vaccine (MCV4P) Unknown Completed [facility] MMR Unknown Completed [facility] MMR Unknown Completed [facility] IPV Unknown Completed [facility] Poliovirus, Live, Oral, Trivalent Unknown Completed [facility] TDAP Unknown Completed [facility] TD, NOS Unknown Completed [facility] HPV Unknown Completed [facility] SARS-COV-2 COVID-19 MAURICIO/J&J VACCINE Unknown Completed [facility] TDAP Unknown Completed [facility] HPV Unknown Completed [facility] HPV Unknown Completed [facility] HPV9 Unknown Completed [facility] DTaP, Unspecified Formulation Unknown Completed [facility] DPT/HIB Unknown Completed [facility] HEPATITIS A Unknown Completed [facility] HEPATITIS A Unknown Completed [facility] Hep B, Unspecified Formulation Unknown Completed [facility] Hep B, Unspecified Formulation Unknown Completed [facility] Meningococcal Polysaccharide (groups A, C, Y and W-135) conjugate vaccine (MCV4P) Unknown Completed [facility] Meningococcal Polysaccharide (groups A, C, Y and W-135) conjugate vaccine (MCV4P) Unknown Completed [facility] MMR Unknown Completed [facility] MMR Unknown Completed [facility] IPV Unknown Completed [facility] Poliovirus, Live, Oral, Trivalent Unknown Completed [facility] TDAP Unknown Completed [facility] Vital Signs Vital Name Observation Time Observation Value Comments S ource Systolic blood pressure 2022-12-03 00:15:00 118 mm[Hg] [facility] Diastolic blood pressure 2022-12-03 00:15:00 79 mm[Hg] [facility] Heart rate 2022-12-03 00:15:00 99 /min [facility] Body temperature 2022-12-03 00:15:00 37.44 Emmanuelle [facility] Respiratory rate 2022-12-03 00:15:00 15 /min [facility] Body height 2022-12-03 00:15:00 165.1 cm [facility] Body weight 2022-12-03 00:15:00 138.256 kg [facility] BMI 2022-12-03 00:15:00 50.72 kg/m2 [facility] Oxygen saturation in Arterial blood by Pulse oximetry 2022-12-03 00:15:00 98 /min [facility] Systolic blood pressure 2022-10-02 18:30:00 136 mm[Hg] [facility] Diastolic blood pressure 2022-10-02 18:30:00 75 mm[Hg] [facility] Heart rate 2022-10-02 18:30:00 80 /min [facility] Body temperature 2022-10-02 18:30:00 36.83 Emmanuelle [facility] Respiratory rate 2022-10-02 18:30:00 18 /min [facility] Body height 2022-10-02 18:30:00 162.6 cm [facility] Body weight 2022-10-02 18:30:00 132.904 kg [facility] BMI 2022-10-02 18:30:00 50.29 kg/m2 [facility] Systolic blood pressure 2022-04-30 16:31:00 133 mm[Hg] [facility] Diastolic blood pressure 2022-04-30 16:31:00 84 mm[Hg] [facility] Heart rate 2022-04-30 16:31:00 76 /min [facility] Body temperature 2022-04-30 16:31:00 35.83 Emmanuelle [facility] Respiratory rate 2022-04-30 16:31:00 18 /min [facility] Body height 2022-04-30 16:31:00 162.6 cm [facility] Body weight 2022-04-30 16:31:00 131.815 kg [facility] BMI 2022-04-30 16:31:00 49.88 kg/m2 [facility] Systolic blood pressure 2022-04-19 15:39:00 119 mm[Hg] [facility] Diastolic blood pressure 2022-04-19 15:39:00 76 mm[Hg] [facility] Heart rate 2022-04-19 15:39:00 81 /min [facility] Body temperature 2022-04-19 15:39:00 36.61 Emmanuelle [facility] Respiratory rate 2022-04-19 15:39:00 18 /min [facility] Body height 2022-04-19 15:39:00 162.6 cm [facility] Body weight 2022-04-19 15:39:00 131.044 kg [facility] BMI 2022-04-19 15:39:00 49.59 kg/m2 [facility] Systolic blood pressure 2022-03-03 15:17:00 125 mm[Hg] [facility] Diastolic blood pressure 2022-03-03 15:17:00 87 mm[Hg] [facility] Heart rate 2022-03-03 15:17:00 74 /min [facility] Body temperature 2022-03-03 15:17:00 36.83 Emmanuelle [facility] Respiratory rate 2022-03-03 15:17:00 18 /min [facility] Body height 2022-03-03 15:17:00 162.6 cm [facility] Body weight 2022-03-03 15:17:00 113.399 kg [facility] BMI 2022-03-03 15:17:00 42.91 kg/m2 [facility] Oxygen saturation in Arterial blood by Pulse oximetry 2022-03-03 15:17:00 99 /min [facility] Systolic blood pressure 2022-02-14 20:28:00 138 mm[Hg] [facility] Diastolic blood pressure 2022-02-14 20:28:00 85 mm[Hg] [facility] Heart rate 2022-02-14 20:28:00 66 /min [facility] Body temperature 2022-02-14 20:28:00 36.33 Emmanuelle [facility] Respiratory rate 2022-02-14 20:28:00 20 /min [facility] Body height 2022-02-14 20:28:00 162.6 cm [facility] Body weight 2022-02-14 20:28:00 124.059 kg [facility] BMI 2022-02-14 20:28:00 46.95 kg/m2 [facility] Systolic blood pressure 2022-01-24 22:13:00 144 mm[Hg] Had to try 3x before getting a reading [facility] Diastolic blood pressure 2022-01-24 22:13:00 98 mm[Hg] Had to try 3x before getting a reading [facility] Heart rate 2022-01-24 22:13:00 97 /min [facility] Body temperature 2022-01-24 22:13:00 36.89 Emmanuelle [facility] Respiratory rate 2022-01-24 22:13:00 18 /min [facility] Body height 2022-01-24 22:13:00 162.6 cm [facility] Body weight 2022-01-24 22:13:00 125.919 kg [facility] BMI 2022-01-24 22:13:00 47.65 kg/m2 [facility] Oxygen saturation in Arterial blood by Pulse oximetry 2022-01-24 22:13:00 98 /min [facility] Systolic blood pressure 2021-12-06 13:30:00 124 mm[Hg] [facility] Diastolic blood pressure 2021-12-06 13:30:00 54 mm[Hg] [facility] Heart rate 2021-12-06 13:30:00 72 /min [facility] Body temperature 2021-12-06 13:30:00 36.28 Emmanuelle [facility] Respiratory rate 2021-12-06 13:30:00 18 /min [facility] Body height 2021-12-06 13:30:00 165.1 cm [facility] Body weight 2021-12-06 13:30:00 130.296 kg [facility] BMI 2021-12-06 13:30:00 47.80 kg/m2 [facility] Procedures Procedure Date / Time Performed Performing Clinician Source POCT SARS-COV-2 ANTIGEN (BINAX NOW) 2022-12-03 00:31:00 Jessika Manrique [facility] CBC WITH DIFF 2022-10-02 19:30:00 Jennifer Puri [facility] GLYCOSYLATED HEMOGLOBIN (A1C) 2022-10-02 19:30:00 Jennifer Puri [facility] HCV ANTIBODY 2022-10-02 19:30:00 [facility] CH[facility]AMYDIA AMPL[facility] ASSAY 2022-10-02 19:30:00 Jennifer Puri [facility] HIV 1/2 AG-AB WITH REFLEX 2022-10-02 19:30:00 Jennifer Puri [facility] TRICHOMONAS AMPLIFIED ASSAY 2022-10-02 19:30:00 Jennifer Puri [facility] PAP SMEAR-LIQUID BASED-CP 2022-10-02 19:30:00 Jennifer Puri [facility] SYPHILIS IGG/IGM 2022-10-02 19:30:00 Jennifer Puri [facility] PATIENT FINANCIAL POLICY 2022-10-02 18:08:46 Doctor Unassigned, [facility] POCT TEST 2022-04-30 16:35:00 Jonel Adams [facility] DISCLOSURE AND CONSENT, MEDICAL AND SURGICAL PROCEDURES 2022-04-30 06:01:00 Doctor Unassigned, [facility] POCT TEST 2022-04-19 15:41:00 Jonel Adams [facility] BASIC METABOLIC PANEL (NA, K, CL, CO2, GLUCOSE, BUN, CREATININE, CA) 2022-03-03 15:57:00 Tiana Antonio [facility] ETHANOL 2022-03-03 15:57:00 Tiana Antonio [facility] CBC WITH DIFF 2022-03-03 15:57:00 Tiana Antonio [facility] URINALYSIS 2022-03-03 15:57:00 Tiana Antonio [facility] URINE DRUG (IMMUNOASSAY) - COMPREHENSIVE DRUG SCREEN W/O REFLEX 2022-03-03 15:57:00 Tiana Antonio [facility] HB ECG ROUTINE & RHYTHM STRIP 2022-03-03 15:55:48 Tiana Antonio [facility] POCT TEST 2022-02-14 20:48:00 Jonel Adams [facility] ASSIGNMENT OF BENEFITS 2022-02-14 19:38:06 Docto r Unassigned, [facility] POCT URINALYSIS 2022-01-24 22:31[facility] 2021-12-06 15:36:00 Jonel Adams [facility] Encounters Start Date/Time End Date/Time Encounter Type Admission Type Attending Clinicians Care Facility Care Department Encounter ID Source 2021-01-22 06:46:10 Emergency [facility] [id number] [facility] 2023-02-21 15:00:00 2023-02-21 15:00:00 Outpatient ESTEVAN [facility] [id number] [facility] 2023-01-28 00:00:00 2023-01-28 00:00:00 Outpatient GC_GCBZW_Ka diyala_S PRIV PRIV [id number] [facility] 2023-01-22 08:30:00 2023-01-22 08:30:00 Outpatient ESTEVAN [facility] [id number] [facility] 2023-01-19 00:00:00 2023-01-19 00:00:00 Outpatient GC_GCBZW_Ka diyala_S PRIV PRIV [id number] [facility] 2023-01-18 00:00:00 2023-01-18 00:00:00 Outpatient GC_GCBZW_Ka diyala_S PRIV PRIV [id number] [facility] 2023-01-18 00:00:00 2023-01-18 00:00:00 Telephone Estevan Adams [facility] UTILITY [facility] MATERNAL & CHILD [facility] 1.2.840.114 350.1.13.10 4.2.7.2.686 [id number] 107 [id number] [facility] 2023-01-14 14:00:00 2023-01-14 14:00:00 Outpatient R JUDE S, OMKAR JUDE S, OMKAR [facility] [id number] [facility] 2022-12-04 00:00:00 2022-12-04 00:00:00 Telephone Jessika Manrique [facility] MEDICAL OFFICE [facility] 1..840.114 350.1.13.10 4.2.7.2.686 [id number] 370 [id number] [facility] 2022-12-02 19:00:00 2022-12-02 19:35:03 Outpatient R JESSIKA MANRIQUE [facility] [id number] [facility] 2022-12-02 19:00:00 2022-12-02 19:20:00 Urgent Care Jessika Manrique Unknown, Attending [facility] MEDICAL OFFICE [facility] 1..840.114 350.1.13.10 4.2.7.2.686 [id number] 370 [id number] [facility] 2022-10-04 00:00:00 2022-10-04 00:00:00 Telephone Jennifer Puri [facility] UTILITY [facility] & CHILD [facility] 1..840.114 350.1.13.10 4.2.7.2.686 [id number] 107 [id number] [facility] 2022-10-02 13:30:00 2022-10-02 14:31:55 Outpatient R JENNIFER PURI [facility] [id number] [facility] 2022-10-02 13:30:00 2022-10-02 14:31:55 Office Visit Jennifer Puri [facility] UTILITY [facility] & CHILD [facility] 1..840.114 350.1.13.10 4.2.7.2.686 [id number] 107 [id number] [facility] 2022-10-02 00:00:00 2022-10-02 00:00:00 Orders Only Doctor Unassigned, [facility] 1.2.840.114 350.1.13.10 4.2.7.2.686 [id number] [facility] 2022-07-04 13:15:00 2022-07-04 13:15:00 Outpatient SIRIA MAGANA [facility] [id number] [facility] 2022-07-04 13:15:00 2022-07-04 13:15:00 Outpatient Divya RAMESHESIRIA [facility] [id number] [facility] 2022-07-04 13:00:00 2022-07-04 13:00:00 Outpatient SIRIA MAGANA [facility] [id number] [facility] 2022-04-30 10:00:00 2022-04-30 10:30:00 Office Visit Estevan Adams [facility] UTILITY [facility] MATERNAL & CHILD [facility] 1.2.840.114 350.1.13.10 4.2.7.2.686 [id number] 107 [id number] [facility] 2022-04-30 10:00:00 2022-04-30 10:00:00 Outpatient R ESTEVAN ADAMS [facility] [id number] [facility] 2022-04-30 00:00:00 2022-04-30 00:00:00 Orders Only Doctor Unassigned, [facility] 1.2.840.114 350.1.13.10 4.2.7.2.686 [id number] [facility] 2022-04-19 09:30:00 2022-04-19 10:05:06 Outpatient R ESTEVAN ADAMS [facility] [id number] [facility] 2022-04-19 09:30:00 2022-04-19 10:05:06 Office Visit Estevan Adams [facility] UTILITY [facility] MATERNAL & CHILD [facility] 1.2.840.114 350.1.13.10 4.2.7.2.686 [id number] 107 [id number] [facility] 2022-04-19 00:00:00 2022-04-19 00:00:00 Letter (Out) Estevan Adams [facility] UTILITY [facility] & CHILD [facility] 1.2840.114 350.1.13.10 4.2.7.2.686 [id number] 107 [id number] [facility] 2022-03-07 09:45:00 2022-03-07 09:45:00 Outpatient SIRIA MAGANA [facility] [id number] [facility] 2022-03-03 09:22:00 2022-03-03 12:44:00 Emergency X TIANA ANTONIO [facility] ERT [id number] [facility] 2022-03-03 09:22:00 2022-03-03 12:44:00 Emergency Tiana Antonio [facility] 1.840.114 350.1.13.10 4.2.7.2.686 [id number] [facility] 2022-02-18 00:00:00 2022-02-18 00:00:00 Refill Estevan Adams [facility] 1.2840.114 350.1.13.10 4.2.7.2.686 [id number] 107 [id number] [facility] 2022-02-14 13:30:00 2022-02-14 14:35:37 [facility] 1.2840.114 350.1.13.10 4.2.7.2.686 [id number] 107 [id number] [facility] 2022-02-14 14:30:00 2022-02-14 14:30:00 Outpatient R NATASHAROBIN ROMERONDA [facility] [id number] [facility] 2022-02-14 13:30:00 2022-02-14 13:30:00 Outpatient R NATASHAROBIN ROMERONDA [facility] [id number] [facility] 2022-02-14 00:00:00 2022-02-14 00:00:00 Orders Only Doctor Unassigned, [facility] 1.84.114 350.1.13.10 4.2.7.2.686 [id number] [facility] 2022-02-14 00:00:00 2022-02-14 00:00:00 Telephone Siria Anderson [facility] UTILITY [facility] MATERNAL & CHILD [facility]ALTH [facility] 1.84.114 350.1.13.10 4.2.7.2.686 [id number] 107 [id number] [facility] 2022-02-06 00:00:00 2022-02-06 00:00:00 Telephone Estevan Adams [facility] UTILITY [facility] MATERNAL & CHILD [facility] 1.84.114 350.1.13.10 4.2.7.2.686 [id number] 107 [id number] [facility] 2022-01-24 17:20:00 2022-01-24 17:28:54 Outpatient JESSIKA MCGUIRE [facility] [id number] [facility] 2022-01-24 17:20:00 2022-01-24 17:28:54 Urgent Care Jessika Manrique Unknown, Attending [facility] 1.84.114 350.1.13.10 4.2.7.2.686 [id number] 370 [id number] [facility] 2022-01-01 00:00:00 2022-01-01 00:00:00 Refill Estevan Adams [facility] UTILITY [facility] & CHILD [facility] 1.840.114 350.1.13.10 4.2.7.2.686 [id number] 107 [id number] [facility] 2022-01-01 00:00:00 2022-01-01 00:00:00 Telephone Estevan Adams [facility] UTILITY [facility] CHILD [facility] 1.840.114 350.1.13.10 4.2.7.2.686 [id number] 107 [id number] [facility] 2021-12-29 00:00:00 2021-12-29 00:00:00 Refill Estevan Adams [facility] UTILITY [facility] CHILD [facility] 1.840.114 350.1.13.10 4.2.7.2.686 [id number] 107 [id number] [facility] 2021-12-06 08:15:00 2021-12-06 08:54:24 Office Visit Estevan Adams Orestes [facility] UTILITY [facility] 1.840.114 350.1.13.10 4.2.7.2.686 [id number] 107 [id number] [facility] 2021-12-06 08:15:00 2021-12-06 08:54:24 Outpatient R ESTEVAN ADAMS [facility] [id number] [facility] 2021-12-06 08:15:00 2021-12-06 08:15:00 Outpatient R ESTEVAN ADAMS [facility] [id number] [facility] 2021-11-22 15:15:00 2021-11-22 15:15:00 Outpatient R ESTEVAN ADAMS [facility] [id number] [facility] 2021-11-21 00:00:00 2021-11-21 00:00:00 Telephone Siria Anderson [facility] UTILITY [facility] CHILD [facility] 1.2.840.114 350.1.13.10 4.2.7.2.686 [id number] 107 [id number] [facility] 2021-11-20 00:00:00 2021-11-20 00:00:00 Telephone Siria Anderson Divya [facility] UTILITY [facility] & CHILD [facility] 1.2.840.114 350.1.13.10 4.2.7.2.686 [id number] 107 [id number] [facility] 2021-09-03 00:00:00 2021-09-03 00:00:00 Refill Anette Andersonmanuel Stokes [facility] UTILITY [facility] & CHILD [facility] 1.2.840.114 350.1.13.10 4.2.7.2.686 [id number] 107 [id number] [facility] 2021-07-04 12:45:00 2021-07-04 13:31:36 Office Visit Blake Andersonrenard [facility] UTILITY [facility] & CHILD [facility] 1.2.840.114 350.1.13.10 4.2.7.2.686 [id number] 107 [id number] [facility] 2021-07-04 12:45:00 2021-07-04 13:31:36 Outpatient Divya RAMESHRita SIRIA [facility] [id number] [facility] 2021-07-04 12:45:00 2021-07-04 12:45:00 Outpatient R ANDERSON, SIRIA [facility] [id number] [facility] 2021-07-04 00:00:00 2021-07-04 00:00:00 Telephone Maisha West [facility] 1.2.840.114 350.1.13.10 4.2.7.2.686 [id number] [facility] 2021-07-03 18:20:00 2021-07-03 18:53:48 Outpatient JESSIKA MCGUIRE [facility] [id number] [facility] 2021-07-03 18:20:00 2021-07-03 18:53:48 Urgent Care Jessika Manrique [facility] 1..840.114 350.1.13.10 4.2.7.2.686 [id number] [facility] 2021-07-03 18:20:00 2021-07-03 18:53:48 Outpatient R JESSIKA MANRIQUE [facility] [id number] [facility] 2021-07-03 09:30:00 2021-07-03 09:30:00 Outpatient EASTON RIOJAS [id number] [facility] 2021-07-03 08:15:00 2021-07-03 08:15:00 Outpatient EASTON RIOJAS [id number] [facility] 2021-07-03 00:00:00 2021-07-03 00:00:00 Patient Secure Msg Siria Anderson [facility] UTILITY [facility] MATERNAL & CHILD [facility] ..840.114 350.1.13.10 4.2.7.2.686 [id number] 107 [id number] [facility] 2021-06-21 13:00:00 2021-06-21 14:53:50 Outpatient R SIRIA ANDERSON [facility] [id number] [facility] 2021-06-21 13:00:00 2021-06-21 14:53:50 Office Visit Siria Anderson [facility] UTILITY [facility] & CHILD [facility] ..840.114 350.1.13.10 4.2.7.2.686 [id number] 107 [id number] [facility] 2021-06-21 13:00:00 2021-06-21 14:53:50 Outpatient R SIRIA ANDERSON [facility] [id number] [facility] 2021-05-31 08:00:00 2021-05-31 09:04:36 Outpatient R SIRIA ANDERSON [facility] [id number] [facility] 2021-05-31 08:00:00 2021-05-31 09:04:36 Routine Visit AndersonSiria [facility] UTILITY [facility] & CHILD [facility] 1.2.840.114 350.1.13.10 4.2.7.2.686 [id number] 107 [id number] [facility] 2021-05-29 00:00:00 2021-05-29 00:00:00 Patient Secure Msg AndersonSiria [facility] UTILITY [facility] CHILD [facility] 1..840.114 350.1.13.10 4.2.7.2.686 [id number] 107 [id number] [facility] 2021-05-19 00:00:00 2021-05-19 00:00:00 Telephone Estevan Adams [facility] UTILITY [facility] CHILD [facility] 1..840.114 350.1.13.10 4.2.7.2.686 [id number] 107 [id number] [facility] 2021-05-17 13:00:00 2021-05-17 13:00:00 Nurse Visit Nurse, Naun Lima Exp Cprit Obgyn Siria Anderson [facility] UTILITY [facility] CHILD [facility] 1.2.840.114 350.1.13.10 4.2.7.2.686 [id number] 107 [id number] [facility] 2021-05-17 13:00:00 2021-05-17 08:46:02 Outpatient R SIRIA ANDERSON [facility] [id number] [facility] 2021-05-17 08:00:00 2021-05-17 08:45:55 Nurse Visit Visit, Abdichp Nurse Siria Anderson [facility] UTILITY [facility] CHILD [facility] 1.2.840.114 350.1.13.10 4.2.7.2.686 [id number] 107 [id number] [facility] 2021-05-09 17:42:00 2021-05-12 16:52:00 Inpatient P JODEE ALMAZAN [facility] REZA [id number] [facility] 2021-05-09 17:42:00 2021-05-12 16:52:00 Hospital Encounter Keyshawn Almazanio Daniela [facility] 1.2.840.114 350.1.13.10 4.2.7.2.686 [id number] [facility] 2021-05-10 17:00:00 2021-05-10 18:47:00 Surgery Zbigniew Fernandez [facility] 1.2.840.114 350.1.13.10 4.2.7.2.686 [id number] [facility] 2021-05-10 09:54:00 2021-05-10 18:34:00 Anesthesia Event Glen Mcgraw Axel [facility] 1.2.840.114 350.1.13.10 4.2.7.2.686 [id number] [facility] 2021-05-09 13:15:00 2021-05-09 14:00:22 Outpatient R SIRIA ANDERSON [facility] [id number] [facility] 2021-05-09 13:15:00 2021-05-09 14:00:22 Routine Visit Siria Anderson [facility] UTILITY [facility] MATERNAL & [facility]ILD [facility] 1.2.840.114 350.1.13.10 4.2.7.2.686 [id number] 107 [id number] [facility] 2021-05-02 15:30:00 2021-05-02 15:58:07 Outpatient R SIRIA ANDERSON [facility] [id number] [facility] 2021-05-02 15:30:00 2021-05-02 15:58:07 Routine Visit Anette Andersonmanuel Divya [facility] UTILITY [facility] & CHILD [facility] 1.2840.114 350.1.13.10 4.2.7.2.686 [id number] 107 [id number] [facility] 2021-05-02 00:00:00 2021-05-02 00:00:00 Abstract Siria Anderson [facility] UTILITY [facility] & CHILD [facility] 1.2840.114 350.1.13.10 4.2.7.2.686 [id number] 107 [id number] [facility] 2021-04-28 09:30:00 2021-04-28 10:00:00 Stone Driller Visit Ultrasound, Katelyn Whiting [facility] UTILITY [facility] CHILD [facility] 1.840.114 350.1.13.10 4.2.7.2.686 [id number] [facility] 2021-04-28 09:30:00 2021-04-28 09:30:00 Outpatient P [facility] [id number] [facility] 2021-04-28 09:30:00 2021-04-28 09:30:00 Outpatient P [facility] [id number] [facility] 2021-04-28 09:30:00 2021-04-28 09:30:00 Outpatient P KATELYN CRUZ SHANNON [facility] [id number] [facility] 2021-04-25 15:30:00 2021-04-25 16:19:38 Outpatient R ANDERSON, ROSKALI [facility] [id number] [facility] 2021-04-25 15:30:00 2021-04-25 16:19:38 Routine Visit Blake Andersonrenard Divya [facility] UTILITY [facility] & CHILD [facility] 1.2840.114 350.1.13.10 4.2.7.2.686 [id number] 107 [id number] [facility] 2021-04-25 15:30:00 2021-04-25 15:30:00 Outpatient R ANDERSON, SIRIA [facility] [id number] [facility] 2021-04-24 15:30:00 2021-04-24 15:30:00 Outpatient P [facility] [id number] [facility] 2021-04-21 00:00:00 2021-04-21 00:00:00 Telephone AndersonSiria [facility] UTILITY [facility] MATERNAL & CHILD [facility] 1..840.114 350.1.13.10 4.2.7.2.686 [id number] 107 [id number] [facility] 2021-04-19 13:15:00 2021-04-19 13:15:00 Outpatient Divya ANDERSONSIRIA [facility] [id number] [facility] 2021-04-19 13:15:00 2021-04-19 13:15:00 Stone Driller Visit Lab, Ang-Rmchp AndersonSriia [facility] UTILITY [facility] & CHILD [facility] 1..840.114 350.1.13.10 4.2.7.2.686 [id number] 107 [id number] [facility] 2021-04-19 13:00:00 2021-04-19 13:00:00 Outpatient P [facility] [id number] [facility] 2021-04-19 00:00:00 2021-04-19 00:00:00 Telephone AndersonSiria [facility] UTILITY [facility] & CHILD [facility] 1..840.114 350.1.13.10 4.2.7.2.686 [id number] 107 [id number] [facility] 2021-04-18 15:30:00 2021-04-18 16:11:31 Outpatient R SIRIA ANDERSON [facility] [id number] [facility] 2021-04-18 15:30:00 2021-04-18 16:11:31 Routine Visit Siria Anderson Divya [facility] UTILITY [facility] MATERNAL & CHILD [facility] 1..840.114 350.1.13.10 4.2.7.2.686 [id number] 107 [id number] [facility] 2021-04-18 15:30:00 2021-04-18 16:11:31 Outpatient R SIRIA ANDERSON [facility] [id number] [facility] 2021-04-18 15:30:00 2021-04-18 15:30:00 Outpatient R SIRIA ANDERSON [facility] [id number] [facility] 2021-04-11 13:00:00 2021-04-11 14:15:13 Outpatient R SIRIA ANDERSON [facility] [id number] [facility] 2021-04-11 13:00:00 2021-04-11 14:15:13 Outpatient R SIRIA ANDERSON [facility] [id number] [facility] 2021-04-11 13:00:00 2021-04-11 14:15:13 Routine Visit Siria Anderson Divya [facility] UTILITY [facility] & CHILD [facility] 1..840.114 350.1.13.10 4.2.7.2.686 [id number] 107 [id number] [facility] 2021-04-11 13:00:00 2021-04-11 13:00:00 Outpatient R SIRIA ANDERSON [facility] [id number] [facility] 2021-03-29 00:00:00 2021-03-29 00:00:00 Telephone Siria Anderson Divya [facility] UTILITY [facility] & CHILD [facility] 1..840.114 350.1.13.10 4.2.7.2.686 [id number] 107 [id number] [facility] 2021-03-22 14:30:00 2021-03-22 14:51:40 Outpatient R SIRIA ANDERSON [facility] [id number] [facility] 2021-03-22 14:30:00 2021-03-22 14:51:40 Routine Visit Siria Anderson Antonio F [facility] UTILITY [facility] & CHILD [facility] 1.2.840.114 350.1.13.10 4.2.7.2.686 [id number] 107 [id number] [facility] 2021-03-22 14:30:00 2021-03-22 14:30:00 Outpatient R JUSTIN SIRIA [facility] [id number] [facility] 2021-03-22 14:00:00 2021-03-22 14:30:00 Stone Driller Visit Ultrasound, [facility] Siria Anderson Antonio [facility] UTILITY [facility] & CHILD [facility] 1.2840.114 350.1.13.10 4.2.7.2.686 [id number] [facility] 2021-03-22 00:00:00 2021-03-22 00:00:00 Abstract Siria Anderson [facility] UTILITY [facility] CHILD [facility] 1.2.840.114 350.1.13.10 4.2.7.2.686 [id number] 107 [id number] [facility] 2021-03-15 00:00:00 2021-03-15 00:00:00 Patient Secure Msg Siria Anderson [facility] UTILITY [facility] CHILD [facility] 1.2.840.114 350.1.13.10 4.2.7.2.686 [id number] 107 [id number] [facility] 2021-03-14 00:00:00 2021-03-14 00:00:00 Telephone Siria Anderson [facility] UTILITY [facility] CHILD [facility] 1.2.840.114 350.1.13.10 4.2.7.2.686 [id number] 107 [id number] [facility] 2021-03-13 00:00:00 2021-03-13 00:00:00 Aaron Dykes [facility] UTILITY [facility] MATERNAL & CHILD [facility] 1.2.840.114 350.1.13.10 4.2.7.2.686 [id number] [facility] 2021-03-13 00:00:00 2021-03-13 00:00:00 Refill Siria Anderson [facility] UTILITY [facility] CHILD [facility] 1.2.840.114 350.1.13.10 4.2.7.2.686 [id number] 107 [id number] [facility] 2021-03-10 00:00:00 2021-03-10 00:00:00 Refill Siria Anderson [facility] UTILITY [facility] & CHILD [facility] 1.2.840.114 350.1.13.10 4.2.7.2.686 [id number] 107 [id number] [facility] 2021-03-10 00:00:00 2021-03-10 00:00:00 Aaron Dykes [facility] UTILITY [facility] MATERNAL & CHILD [facility] 1.2.840.114 350.1.13.10 4.2.7.2.686 [id number] [facility] 2021-03-09 15:45:00 2021-03-09 16:18:23 Outpatient R SIRIA ANDERSON [facility] [id number] [facility] 2021-03-09 15:45:00 2021-03-09 16:18:23 Routine Visit Siria Anderson [facility] UTILITY [facility] & CHILD [facility] 1.2.840.114 350.1.13.10 4.2.7.2.686 [id number] 107 [id number] [facility] 2021-03-09 00:00:00 2021-03-09 00:00:00 Aaron Dykes [facility] UTILITY [facility] MATERNAL & CHILD [facility] 1.2.840.114 350.1.13.10 4.2.7.2.686 [id number] [facility] 2021-03-09 00:00:00 2021-03-09 00:00:00 Siria Lechuga [facility] UTILITY [facility] & CHILD [facility] .840.114 350.1.13.10 4.2.7.2.686 [id number] 107 [id number] [facility] 2021-03-08 15:45:00 2021-03-08 15:45:00 Outpatient SIRIA MGAANA [facility] [id number] [facility] 2021-02-22 10:00:00 2021-02-22 11:57:26 Outpatient AARON BACK [facility] [id number] [facility] 2021-02-22 09:59:09 2021-02-22 11:57:26 Routine Visit Provider, Aaron Barlow [facility] .840.114 350.1.13.10 4.2.7.2.686 [id number] [facility] 2021-02-13 10:52:00 2021-02-13 11:22:00 Stone Driller Visit Ultrasound, Silvana Ruff [facility] 1.2.840.114 350.1.13.10 4.2.7.2.686 [id number] [facility] 2021-02-13 10:45:00 2021-02-13 10:45:00 Outpatient SILVANA WESLEY SANGE[facility]A [facility] [id number] [facility] 2021-02-13 00:00:00 2021-02-13 00:00:00 Case Management Bo Rivera [facility] 1.0.114 350.1.13.10 4.2.7.2.686 [id number] [facility] 2021-02-03 00:00:00 2021-02-03 00:00:00 Telephone Aaron Alicea [facility] 1.0.114 350.1.13.10 4.2.7.2.686 [id number] [facility] 2021-02-01 10:45:00 2021-02-01 11:09:09 Outpatient R BO RIVERA [facility] [id number] [facility] 2021-02-01 10:04:55 2021-02-01 11:09:09 Routine Visit Provider, Naun-Rmchp Temp Bo Rivera [facility] 1..114 350.1.13.10 4.2.7.2.686 [id number] 107 [id number] [facility] 2021-01-31 00:00:00 2021-01-31 00:00:00 Nguyễn Hess [facility] 1..114 350.1.13.10 4.2.7.2.686 [id number] 370 [id number] [facility] 2021-01-30 00:00:00 2021-01-30 00:00:00 Telephone Aaron Alicea [facility] UTILITY [facility] 1.840.114 350.1.13.10 4.2.7.2.686 [id number] [facility] 2021-01-29 00:00:00 2021-01-29 00:00:00 Refill Siria Anderson [facility] 1.2.840.114 350.1.13.10 4.2.7.2.686 [id number] 107 [id number] [facility] 2021-01-29 00:00:00 2021-01-29 00:00:00 Refill Nguyễn Adhikari [facility] 1.840.114 350.1.13.10 4.2.7.2.686 [id number] 370 [id number] [facility] 2021-01-19 14:40:00 2021-01-19 15:06:44 Outpatient R CASEY [facility] [id number] [facility] 2021-01-19 14:22:57 2021-01-19 15:06:44 [facility] 1..840.114 350.1.13.10 4.2.7.2.686 [id number] [facility] 2021-01-04 00:00:00 2021-01-04 00:00:00 Telephone Siria Anderson [facility] [facility] 1.2.840.114 350.1.13.10 4.2.7.2.686 [id number] [facility] 2021-01-03 00:00:00 2021-01-03 00:00:00 Telephone Siria Anderson [facility] UTILITY [facility] & CHILD [facility] 1.2.840.114 350.1.13.10 4.2.7.2.686 [id number] [facility] 2021-01-03 00:00:00 2021-01-03 00:00:00 Telephone Siria Anderson [facility] UTILITY [facility]NAL & CHILD [facility]ALTH [facility] 1.2.840.114 350.1.13.10 4.2.7.2.686 [id number] [facility] 2021-01-02 10:45:39 2021-01-02 11:10:03 Routine Visit Provider, Aaron Barlow [facility] UTILITY [facility]ILD [facility] 1.2.840.114 350.1.13.10 4.2.7.2.686 [id number] [facility] 2021-01-02 10:45:00 2021-01-02 10:45:00 Outpatient R [facility] [id number] [facility] 2020-12-21 10:52:25 2020-12-21 11:26:21 Office Visit Palmira Phillips Joseph [facility] 1..840.114 350.1.13.10 4.2.7.2.686 [id number] [facility] 2020-12-21 10:30:00 2020-12-21 10:30:00 Outpatient P [facility] [id number] [facility] 2020-12-19 08:20:30 2020-12-19 09:35:30 Stone Driller Visit Ultrasound, Gianni Virk [facility] UTILITY [facility] MATERNAL & CHILD [facility] 1.2.840.114 350.1.13.10 4.2.7.2.686 [id number] [facility] 2020-12-19 08:00:00 2020-12-19 08:00:00 Outpatient P [facility] [id number] [facility] 2020-12-19 00:00:00 2020-12-19 00:00:00 Abstract Siria Anderson [facility] UTILITY [facility] MATERNAL & CHILD [facility] 1.2.840.114 350.1.13.10 4.2.7.2.686 [id number] [facility] 2020-12-07 00:00:00 2020-12-07 00:00:00 Telephone Siria Anderson [facility] UTILITY [facility] & CHILD [facility] 1.2.840.114 350.1.13.10 4.2.7.2.686 [id number] [facility] 2020-12-05 10:15:59 2020-12-05 10:54:56 Routine Visit Siria Anderson [facility] UTILITY [facility] & CHILD [facility] 1.2.840.114 350.1.13.10 4.2.7.2.686 [id number] [facility] 2020-12-05 10:15:59 2020-12-05 10:54:56 Routine Visit Siria Anderson [facility] UTILITY [facility] & CHILD [facility] 1.2.840.114 350.1.13.10 4.2.7.2.686 [id number] [facility] 2020-12-05 10:15:00 2020-12-05 10:15:00 Outpatient R WILNER ANDERSONKALI [facility] [id number] [facility] 2020-11-07 08:42:18 2020-11-07 09:41:48 Routine Visit Siria Anderson [facility] UTILITY [facility] & CHILD [facility] 1.2.840.114 350.1.13.10 4.2.7.2.686 [id number] [facility] 2020-11-07 08:45:00 2020-11-07 08:45:00 Outpatient R ANDERSON, SIRIA [facility] [id number] [facility] 2020-11-01 00:00:00 2020-11-01 00:00:00 Telephone Siria Anderson [facility] UTILITY [facility] MATERNAL & CHILD [facility] 1.2.840.114 350.1.13.10 4.2.7.2.686 [id number] [facility] 2020-10-27 00:00:00 2020-10-27 00:00:00 Patient Secure Msg Doctor Unassigned, [facility] UTILITY [facility] MATERNAL & CHILD [facility] 1.2.840.114 350.1.13.10 4.2.7.2.686 [id number] [facility] 2020-10-27 00:00:00 2020-10-27 00:00:00 Telephone Siria Anderson [facility] UTILITY [facility] CHILD [facility] 1.2.840.114 350.1.13.10 4.2.7.2.686 [id number] [facility] 2020-10-26 00:00:00 2020-10-26 00:00:00 Telephone Siria Anderson [facility] UTILITY [facility] CHILD [facility] 1.2.840.114 350.1.13.10 4.2.7.2.686 [id number] [facility] 2020-10-19 13:59:38 2020-10-19 14:29:38 Stone Driller Visit Ultrasound, Cristin Jones [facility] UTILITY [facility] MATERNAL & CHILD [facility] 1.2.840.114 350.1.13.10 4.2.7.2.686 [id number] [facility] 2020-10-19 14:00:00 2020-10-19 14:00:00 Outpatient P [facility] [id number] [facility] 2020-10-19 00:00:00 2020-10-19 00:00:00 Abstract Siria Anderson [facility] UTILITY [facility] MATERNAL & CHILD [facility] 1.114 350.1.13.10 4.2.7.2.686 [id number] [facility] 2020-10-10 08:57:06 2020-10-10 09:57:15 Initial Visit Siria Anderson [facility] UTILITY [facility] & CHILD [facility] 1..114 350.1.13.10 4.2.7.2.686 [id number] [facility] 2020-10-10 08:30:00 2020-10-10 08:30:00 Outpatient R [facility] [id number] [facility] 2020-10-10 00:00:00 2020-10-10 00:00:00 Orders Only Doctor Unassigned, [facility] 1.114 350.1.13.10 4.2.7.2.686 [id number] [facility] 2020-06-24 16:00:00 2020-06-24 16:00:00 Outpatient R JULISSA MICHELE [facility] [id number] [facility] 2020-06-24 11:27:53 2020-06-24 11:49:24 Office Visit Julissa Michele [facility] 1.114 350.1.13.10 4.2.7.2.686 [id number] [facility] 2020-06-24 11:00:00 2020-06-24 11:00:00 Outpatient R JULISSA MICHELE [facility] [id number] [facility] 2020-06-14 00:00:00 2020-06-14 00:00:00 Patient Outreach Reji Cruz [facility] 1.114 350.1.13.10 4.2.7.2.686 [id number] [facility] 2020-06-08 19:38:00 2020-06-09 12:50:00 Emergency Ann, Emma [place], Zoe Michele, Julissa Nunez [facility] 1.114 350.1.13.10 4.2.7.2.686 [id number] [facility] 2020-06-08 18:59:31 2020-06-08 19:19:31 Urgent Care Provider, [facility] Saadia Lovett [facility] [address] [facility] 1.114 350.1.13.10 4.2.7.2.686 [id number] [facility] 2020-06-08 18:40:00 2020-06-08 18:40:00 Outpatient SAADIA RAZO [facility] [id number] [facility] 2020-05-24 13:16:03 2020-05-24 14:05:26 Office Visit OmarNia narayantany [facility] 1.114 350.1.13.10 4.2.7.2.686 [id number] [facility] 2020-05-24 13:00:00 2020-05-24 13:00:00 Outpatient R NIA HANKINSTANY [facility] [id number] [facility] 2020-05-19 13:00:00 2020-05-19 13:00:00 Outpatient YOVANY ODONNELL [facility] [id number] [facility] 2020-05-19 00:00:00 2020-05-19 00:00:00 Orders Only Doctor Unassigned, [facility] 1.114 350.1.13.10 4.2.7.2.686 [id number] [facility] 2020-03-28 19:14:32 2020-03-28 19:51:01 Urgent Care [facility] 1..840.114 350.1.13.10 4.2.7.2.686 [id number] [facility] 2020-03-28 19:20:00 2020-03-28 19:20:00 Outpatient R [facility] [id number] [facility] 2020-03-28 00:00:00 2020-03-28 00:00:00 Letter (Out) Doctor Unassigned, [facility] 1..840.114 350.1.13.10 4.2.7.2.686 [id number] [facility] 2020-01-15 08:15:00 2020-01-15 08:15:00 Outpatient R JAIME CLEMENT [facility] [id number] [facility] 2019-03-12 14:26:14 2019-03-12 23:59:00 Outpatient JAIME CLEMENT [facility] [id number] [facility] Results Test Description Test Time Test Comments Results Result Co mments Source [facility] ONLY - SYPHILIS [id number] 16:24:15* Test Item Value Reference Range Interpretation Comme nts Syphilis IgG/IgM (test code = 40809-6) Non-reactive Non-reactive VASHTI (test code = VASHTI) Non-reactive - No serologic evidence of T. pallidum infection. Cannot exclude incubating or early syphilis. Submit a second specimen in 2-4 weeks if syphilis is clinically suspected. Equivocal - Further testing to follow. Reactive - Further testing to follow. Lab Interpretation (test code = 13250-3) Normal [facility] ONLY - SYPHILIS [id number] 16:24:15* Test Item Value Reference Range Interpretation Comme nts Syphilis IgG/IgM (test code = 06562-3) Non-reactive Non-reactive VASHTI (test code = VASHTI) Non-reactive - No serologic evidence of T. pallidum infection. Cannot exclude incubating or early syphilis. Submit a second specimen in 2-4 weeks if syphilis is clinically suspected. Equivocal - Further testing to follow. Reactive - Further testing to follow. Lab Interpretation (test code = 94367-6) [facility] 07:09:19* Test Item Value Reference Range Interpretation Comme nts HGB A1C (test code = 4548-4) 5.3 % 4.0-5.7 VASHTI (test code = VASHTI) Reference RangesNormal: <5.7%Prediabetes: 5.7 - 6.4%Diabetes: > 6.5% Lab Interpretation (test code = 61400-6) Normal [facility])2022-10-03 07:09:19* Test Item Value Reference Range Interpretation Comme nts HGB A1C (test code = 4548-4) 5.3 % 4.0-5.7 VASHTI (test code = VASHTI) Reference RangesNormal: <5.7%Prediabetes: 5.7 - 6.4%Diabetes: > 6.5% Lab Interpretation (test code = 20248-0) [facility] WITH [id number] 06:09:39* Test Item Value Reference Range Interpretation Comme nts HIV Semi-quantitative (test code = 22432-2) 0.09 Negative VASHTI (test code = VASHTI) Non-reactive for HIV-1 antigen and HIV-1/HIV-2 antibodies. ?No laboratory evidence of HIV infection. ?Repeat in 2-4 weeks if acute HIV infection is suspected. [facility] [id number] 06:09:39* Test Item Value Reference Range Interpretation Comme nts HCV Ab (test code = 57312-7) Negative HCV Semi-Quantitative (test code = 96460-0) 0.03 [facility] WITH [id number] 06:09:39* Test Item Value Reference Range Interpretation Comme nts HIV Semi-quantitative (test code = 96463-9) 0.09 Negative VASHTI (test code = VASHTI) Non-reactive for HIV-1 antigen and HIV-1/HIV-2 antibodies. ?No laboratory evidence of HIV infection. ?Repeat in 2-4 weeks if acute HIV infection is suspected. [facility] [id number] 06:09:39* Test Item Value Reference Range Interpretation Comme nts HCV Ab (test code = 58936-0) Negative HCV Semi-Quantitative (test code = 24959-4) 0.03 [facility] WITH [id number] 05:35:17* Test Item Value Reference Range Interpretation [...] 31.7 g/dL 31.6-35.1 RDW-SD (test code = 40456-7) 38.7 fL 39.0-49.9 L RDW-CV (test code = 788-0) 13.0 % 12.0-15.5 PLT (test code = 777-3) 442 See_Comment H [Automated messa ge] The system which generated this result transmitted reference range: 166 - 358 10*3/?L. The reference range was not used to interpret this result as normal/abnormal. MPV (test code = 00142-3) 10.9 fL 9.5-12.9 NRBC/100 WBC (test code = 3670481288) 0.0 See_Comment [Automated tidy ssage] The system which generated this result transmitted reference range: 0.0 - 10.0 /100 WBCs. The reference range was not used to interpret this result as normal/abnormal. NRBC x10^3 (test code = 3643123900) See_Comment [Automated messa ge] The system which generated this result transmitted reference range: 10*3/?L. The reference range was not used to interpret this result as normal/abnormal. GRAN MAT (NEUT) % (test code = 770-8) 61.3 % IMM GRAN % (test code = 8268918705) 0.20 % LYMPH % (test code = 736-9) 32.8 % MONO % (test code = 5905-5) 4.5 % EOS % (test code = 713-8) 0.9 % BASO % (test code = 706-2) 0.3 % GRAN MAT x10^3(ANC) (test code = 8686735142) 6.11 10*3/uL 1.88-7.09 IMM GRAN x10^3 (test code = 0058449425) 0.00-0.06 LYMPH x10^3 (test code = 731-0) 3.27 10*3/uL 1.32-3.29 MONO x10^3 (test code = 742-7) 0.45 10*3/uL 0.33-0.92 EOS x10^3 (test code = 711-2) 0.09 10*3/uL 0.03-0.39 BASO x10^3 (test code = 704-7) 0.03 10*3/uL 0.01-0.07 Lab Interpretation (test code = 23067-9) Abnormal [facility] WITH [id number] 05:35:17* Test Item Value Reference Range Interpretation [...] 31.7 g/dL 31.6-35.1 RDW-SD (test code = 99948-1) 38.7 fL 39.0-49.9 L RDW-CV (test code = 788-0) 13.0 % 12.0-15.5 PLT (test code = 777-3) 442 See_Comment H [Automated messa ge] The system which generated this result transmitted reference range: 166 - 358 10*3/?L. The reference range was not used to interpret this result as normal/abnormal. MPV (test code = 90025-6) 10.9 fL 9.5-12.9 NRBC/100 WBC (test code = 5902850552) 0.0 See_Comment [Automated tidy ssage] The system which generated this result transmitted reference range: 0.0 - 10.0 /100 WBCs. The reference range was not used to interpret this result as normal/abnormal. NRBC x10^3 (test code = 9044960604) See_Comment [Automated messa ge] The system which generated this result transmitted reference range: 10*3/?L. The reference range was not used to interpret this result as normal/abnormal. GRAN MAT (NEUT) % (test code = 770-8) 61.3 % IMM GRAN % (test code = 3630549928) 0.20 % LYMPH % (test code = 736-9) 32.8 % MONO % (test code = 5905-5) 4.5 % EOS % (test code = 713-8) 0.9 % BASO % (test code = 706-2) 0.3 % GRAN MAT x10^3(ANC) (test code = 7339522031) 6.11 10*3/uL 1.88-7.09 IMM GRAN x10^3 (test code = 4964218935) 0.00-0.06 LYMPH x10^3 (test code = 731-0) 3.27 10*3/uL 1.32-3.29 MONO x10^3 (test code = 742-7) 0.45 10*3/uL 0.33-0.92 EOS x10^3 (test code = 711-2) 0.09 10*3/uL 0.03-0.39 BASO x10^3 (test code = 704-7) 0.03 10*3/uL 0.01-0.07 Lab Interpretation (test code = 45200-1) Abnormal [facility] [id number] 16:35:00* Test Item Value Reference Range Interpretation Comme nts POCT PREG (test code = 1605) Negative On board controls acceptable with C Line (test code = 3574) Yes POCT PREG LOT # (test code = 3575) POCT PREG TEST DATE ( test code = 3576) [facility] [id number] 16:35:00* Test Item Value Reference Range Interpretation Comme nts POCT PREG (test code = 1605) Negative On board controls acceptable with C Line (test code = 3574) Yes POCT PREG LOT # (test code = 3575) POCT PREG TEST DATE ( test code = 3576) [facility] [id number] 15:41:00* Test Item Value Reference Range Interpretation Comme nts POCT PREG (test code = 1605) Negative On board controls acceptable with C Line (test code = 3574) Yes POCT PREG LOT # (test code = 3575) POCT PREG TEST DATE ( test code = 3576) [facility] [id number] 15:41:00* Test Item Value Reference Range Interpretation Comme nts POCT PREG (test code = 1605) Negative On board controls acceptable with C Line (test code = 3574) Yes POCT PREG LOT # (test code = 3575) POCT PREG TEST DATE ( test code = 3576) [facility] [id number] 15:41:00* Test Item Value Reference Range Interpretation Comme nts POCT PREG (test code = 1605) Negative On board controls acceptable with C Line (test code = 3574) Yes POCT PREG LOT # (test code = 3575) POCT PREG TEST DATE ( test code = 3576) [facility] [id number] 15:41:00* Test Item Value Reference Range Interpretation Comme nts POCT PREG (test code = 1605) Negative On board controls acceptable with C Line (test code = 3574) Yes POCT PREG LOT # (test code = 3575) POCT PREG TEST DATE ( test code = 3576) [facility] [id number] 15:41:00* Test Item Value Reference Range Interpretation Comme nts POCT PREG (test code = 1605) Negative On board controls acceptable with C Line (test code = 3574) Yes POCT PREG LOT # (test code = 3575) POCT PREG TEST DATE ( test code = 3576) [facility]2022-[facility]-10 16:42:23 ALCOHOL<10mg/dL03/03/2022 10:42 AM [facility]<10 Juypcfhj09-745 Toxic>100 Depression of RECREATION INSTRUCTOR>400 Fatalities ReportedUnB[facility]neyBASI METABOLIC PANEL (NA, K, CL, CO2, GLUCOSE, BUN, CREATININE, CA)2022-03-03 16:23:10* Test Item Value Reference Range Interpretation Comme [facility] NA (test code = 8369634976) 138 mmol/L 135-145 K (test code = 2504313283) 3.9 mmol/L 3.5-5.0 CL (test code = 6664578895) 106 mmol/L 98-108 CO2 TOTAL (test code = 7182577133) 24 mmol/L 23-31 AGAP (test code = 3676755939) 2-16 BUN (test code = 3829690178) 11 mg/dL 7-23 GLUCOSE (test code = 5311040340) 95 mg/dL 70-110 CREATININE (test code = 0471887169) 0.62 mg/dL 0.50-1.04 CALCIUM (test code = 7828775787) 9.4 mg/dL 8.6-10.6 eGFR (test code = 2598682567) mL/min/1.73m2 VASHTI (test code = VASHTI) Association [...] or urine or abnormalities in imaging tests). [facility] WITH [id number] 16:19:13* Test Item Value Reference Range Interpretation Comme nts WBC (test code = 6690-2) See_Comment [[employer]] The system which generated this result transmitted reference range: 4.30 - 11.10 10*3/?L. The reference range was not used to interpret this result as normal/abnormal. RBC (test code = 789-8) See_Comment [Automated [employer]] The system which generated this result transmitted [...] 32.8 g/dL 31.6-35.1 RDW-SD (test code = 70359-6) 38.5 fL 39.0-49.9 L RDW-CV (test code = 788-0) 12.9 % 12.0-15.5 PLT (test code = 777-3) See_Comment [Automated messa ge] The system which generated this result transmitted reference range: 166 - 358 10*3/?L. The reference range was not used to interpret this result as normal/abnormal. MPV (test code = 78080-0) 10.2 fL 9.5-12.9 NRBC/100 WBC (test code = 8753957480) See_Comment [Automated tidy ssage] The system which generated this result transmitted reference range: 0.0 - 10.0 /100 WBCs. The reference range was not used to interpret this result as normal/abnormal. NRBC x10^3 (test code = 7842356227) See_Comment [Automated messa ge] The system which generated this result transmitted reference range: 10*3/?L. The reference range was not used to interpret this result as normal/abnormal. GRAN MAT (NEUT) % (test code = 770-8) 54.2 % IMM GRAN % (test code = 0837328094) 0.30 % LYMPH % (test code = 736-9) 39.1 % MONO % (test code = 5905-5) 5.1 % EOS % (test code = 713-8) 1.2 % BASO % (test code = 706-2) 0.1 % GRAN MAT x10^3(ANC) (test code = 8508040620) 3.94 10*3/uL 1.88-7.09 IMM GRAN x10^3 (test code = 2605482315) 0.00-0.06 LYMPH x10^3 (test code = 731-0) 2.84 10*3/uL 1.32-3.29 MONO x10^3 (test code = 742-7) 0.37 10*3/uL 0.33-0.92 EOS x10^3 (test code = 711-2) 0.09 10*3/uL 0.03-0.39 BASO x10^3 (test code = 704-7) 0.01-0.07 Lab Interpretation (test code = 40349-3) Abnormal [facility] [id number] 20:48:00* Test Item Value Reference Range Interpretation Comme nts POCT PREG (test code = 1605) Negative On board controls acceptable with C Line (test code = 3574) Yes POCT PREG LOT # (test code = 3575) POCT PREG TEST DATE ( test code = 3576) [facility] URINALYSIS W SPECIFIC [id number] 22:32:00* Test Item Value Reference Range Interpretation [...] development and interpretation of all internal controls [facility] URINALYSIS W SPECIFIC [id number] 22:32:00* Test Item Value Reference Range Interpretation [...] development and interpretation of all internal controls [facility] [id number] 15:36:00* Test Item Value Reference Range Interpretation Comme nts POCT PREG (test code = 1605) Negative On board controls acceptable with C Line (test code = 3574) Yes POCT PREG LOT # (test code = 3575) POCT PREG TEST DATE ( test code = 3576) [facility] Notes Date/Time Note Provider Source 2022-12-05 10:12:02 tZIroOTC4t4L+RguDStE fsdjqaSlyrf0C3HpVC ZxBo6O33u2gbf5vK8XsaeDQ7oc6169-16-43S7 0:12:02 Called to speak with [facility] in [place]. They state they did not ever get the prescription. Contacted the patient and she also has not received the prescription. She is requesting they be resent to [facility] in [place]. Re-ordered original prescription and sent to [facility] per patient request. 54145-1Upaojfcpi encounter AebnIE3823-99-56J09:14:39Telephone encounter NoteTXT1.2.840.496633.1.13.104.2.7.2.7 97827|[id number] for patient ifwf48769-1EljyNOOBRVYXOJ[address]TXTX7755577555US EMMMUWOZCKJAUUSLODRM4588-36-37A73:14:3 91.2.840.702690.1.72.3.15|1.2.840.1143 50.1.13.104.2.7.2.727879_[id number] [facility] 2022-12-04 18:01:37 Sd8R9CWIuprMpq+Wjep+ PCTz1hV1v8WkXXv1q6 o8yyUP6S5p/+3dvQBOaAFn8teB8367-24-32K6 8:01:37 Thao Lang is a 27 year old femaleTammy from [facility] stating [facility] are wanting the prescriptions transferred. Please advise azelastine 137 mcg (0.1 %) nasal jlxcpiyebprmrjjjyylg-nuhkfzllmkgzosr-A M (BROMFED DM) 2-30-10 mg/5 mL syrupfluticasone propionate 50 mcg/actuation nasal spraymethylPREDNISolone (MEDROL, KRISTA,) 4 mg tabletsOH[facility] [place], [place] - [address] [place] [address] & [place] [address] [address]Fybxm: [phone] Vjjsggbvajhloa signed by Nate Mcleod at 12/04/2022 6:02 PM QUG53635-7Otthorhfz encounter LkbnYA8938-82-59R14:02:30Telephone encounter NoteTXT1.2.840.318786.1.13.104.2.7.2.7 31267|[id number] for patient ffro73244-4MxdaKD996364575Rmejsms [address] MgpqDjzbmwdqsCdwsukznrIYIF9930291294KR VAJEBCNUAIWPZAVRJFDM0036-93-28M65:02:3 01.2.840.266383.1.72.3.15|1.2.840.1143 50.1.13.104.2.7.2.727879_[id number] [facility]"
[2023-07-12] MEDS ORDERED: NA CHLORIDE 0.9% 1,000 ML ONE (12:18)
--- NOTE | 2023-07-12 12:37 | RAD REPORT ---
EXAM DESCRIPTION: Charline Single View07/12/2023 12:26 pm CLINICAL HISTORY: cough COMPARISON: none FINDINGS: The lungs appear clear of acute infiltrate. The heart is normal size IMPRESSION: No acute abnormalities displayed
[2023-07-12 12:58] LABS: Barbiturates NEGATIVE (NEGATIVE); Benzodiazepines NEGATIVE (NEGATIVE); Cocaine NEGATIVE (NEGATIVE); METHAMPHETAM NEGATIVE (NEGATIVE); Methadone NEGATIVE (NEGATIVE); Opiates NEGATIVE (NEGATIVE); Phencyclidine NEGATIVE (NEGATIVE); THC Cannibis POSITIVE (NEGATIVE)
[2023-07-12 13:05] LABS: Absolute Lymphocytes (CBC) 1.6 K/uL (0.7-4.9); Absolute Monocytes 0.9 K/uL (0.1-1.3); Absolute Neutrophil 9.3 K/uL (1.8-8.0); Basophils % 0.4 % (0-1.3); Eosinophils % 0.2 % (0-4.4); Hematocrit 38.7 % (36.0-45.0); Hemoglobin 12.5 g/dL (12.0-15.0); Lymphocytes % 13.2 % (15.3-44.8); MCH 24.6 pg (27.0-35.0); MCHC 32.2 g/dL (32.0-36.0); MCV 76.2 fL (80-100); Monocytes % 7.7 % (3.3-12.3); Neutrophils % 78.5 % (41.7-73.7); Platelets 346 thou/uL (152-406); RBC Red Blood Cell Count 5.07 M/uL (3.86-4.86); Red Cell Distribution Width 14.3 % (12.1-15.2)
[2023-07-12 13:15] LABS: PT Prothrombin Time 14.1 SECONDS (9.5-12.5); PTT, Activated Partial Thromb 28.1 SECONDS (24.3-36.9); Protime INR 1.29
[2023-07-12 13:29] LABS: ALT/SGPT 41 U/L (13-56); AST/SGOT 19 U/L (15-37); Albumin 3.6 g/dL (3.4-5.0); Albumin/Globulin Ratio 0.8 (1.1-1.8); Alkaline Phosphatase 87 U/L (45-117); Anion Gap 7.7 mEq/L (5.0-15.0); BUN Blood Urea Nitrogen 7 mg/dL (7-18); Bicarbonate 25 mEq/L (21-32); Bilirubin Direct 0.2 mg/dL (0-0.2); Bilirubin Indirect, Calculated 0.3 mg/dL (0.2-0.8); Bilirubin Total 0.5 mg/dL (0.2-1.0); Globulin 4.6 g/dL (2.3-3.5); Glomerular Filtration Rate 89 ml/min (=/>90); Glucose Level 128 mg/dL (74-106); Potassium 3.7 mEq/L (3.5-5.1); Protein, Total 8.2 g/dL (6.4-8.2); Sodium Level 135 mEq/L (136-145)
--- NOTE | 2023-07-12 13:53 | EDPHYS ---
Physician Documentation [facility] Name: Thao Lang Age: 28 yrs Sex: Female : 1995 Arrival Date: 07/12/2023 Time: 11:38 Bed 11 Private MD: ED Physician Unruly Cody HPI: 07/11 12:17 This 28 yrs old Female presents to ER via Ambulatory with complaints of sp3 "allergies, rat poison and mold". 12:18 28-year-old female with history of asthma and unknown psychiatric history now presents sp3 to the ED with chief complaint allergies, rat poison exposure, mold exposure, viral meningitis, breathing difficulty, among others. Patient appears very manic and states that the ceiling fans are circulating rat poison all over her [place]. She states that she needs to switch places with her dad. She also is having dreams of monkeys pushing hair down her throat trying to kill her. She denies suicidal ideation, homicidal ideation, or any other suicidal symptoms. She states she once took Seroquel but is not on any medications. She has an IUD in place and she also stated that the latex in the IUD is giving her allergies.. 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 - Infectious Disease History:: Denies. - Social history:: Smoking status: Patient denies any tobacco usage or history of. ROS: 12:20 Constitutional: Negative for fever, chills, and weight loss, Eyes: Negative for injury, sp3 pain, redness, and discharge, ENT: Negative for injury, pain, and discharge, Neck: Negative for injury, pain, and swelling, Cardiovascular: Negative for chest pain, palpitations, and edema, Abdomen/GI: Negative for abdominal pain, nausea, vomiting, diarrhea, and constipation, Back: Negative for injury and pain, MS/Extremity: Negative for injury and deformity, Skin: Negative for injury, rash, and discoloration, Neuro: Negative for headache, weakness, numbness, tingling, and seizure, 12:20 All other systems are negative, Exam: 12:20 Constitutional: This is a well developed, well nourished patient who is awake, alert, sp3 and in no acute distress. Head/Face: Normocephalic, atraumatic. Eyes: Pupils equal round and reactive to light, extra-ocular motions intact. Lids and lashes normal. Conjunctiva and sclera are non-icteric and not injected. Cornea within normal limits. Periorbital areas with no swelling, redness, or edema. ENT: Nares patent. No nasal discharge, no septal abnormalities noted. External auditory canals are clear. Oropharynx with no redness, swelling, or masses, exudates, or evidence of obstruction, uvula midline. Mucous membranes moist. Neck: Trachea midline, no thyromegaly or masses palpated, and no cervical lymphadenopathy. Supple, full range of motion without nuchal rigidity, or vertebral point tenderness. No Meningismus. Chest/axilla: Normal chest wall appearance and motion. Nontender with no deformity. No lesions are appreciated. Respiratory: Lungs have equal breath sounds bilaterally, clear to auscultation and percussion. No rales, rhonchi or wheezes noted. No increased work of breathing, no retractions or nasal flaring. Abdomen/GI: Soft, non-tender, with normal bowel sounds. No distension or tympany. No guarding or rebound. No evidence of tenderness throughout. Back: No spinal tenderness. No costovertebral tenderness. Full range of motion. Skin: Warm, dry with normal turgor. Normal color with no rashes, no lesions, and no evidence of cellulitis. MS/ Extremity: Pulses equal, no cyanosis. Neurovascular intact. Full, normal range of motion. Neuro: Awake and alert, GCS 15, oriented to person, place, time, and situation. Cranial nerves II-XII grossly intact. Motor strength 5/5 in all extremities. Sensory grossly intact. Cerebellar exam normal. Normal gait. 12:20 Cardiovascular: Rate: tachycardic, 12:20 Psych: Patient is very manic and appears to be responding to internal stimuli. She denies psychosis but states that she is having the dreams noted in the HPI. She denies suicidal or homicidal ideation.. Vital Signs: 11:54 BP 124 / 88; Pulse 118; Resp 19; Temp 97.7; Pulse Ox 98% on R/A; Weight 117.93 kg; ap3 Height 5 ft. 4 in. ; 13:49 BP 121 / 71; Pulse 102; Resp 20; Pulse Ox 98% ; bp 11:54 Body Mass Index 44.63 (117.93 kg, 162.56 cm) ap3 MDM: 11:54 Patient medically screened. sp3 12:21 Data reviewed: vital signs, nurses notes, lab test result(s), radiologic studies. ED sp3 course: 28-year-old female with a myriad of symptoms. I believe she is having a manic episode and is very anxious which will also contribute to her tachycardia. Clinically I am not suspicious at all for allergic reaction, pneumonia, upper respiratory infection, sepsis, shock, or any other critical process or toxic exposure. Will obtain laboratory values, chest x-ray and try and convince her to seek professional psychiatric help.. 13:51 ED course: Workup negative. I have advised patient to follow-up with her routine sp3 psychiatrist to reengage her medications. No acute abnormality or emergency in the ED noted.. 07/11 12:01 Order name: Acetaminophen; Complete Time: 13:47 sp3 07/11 12:01 Order name: Basic Metabolic Panel; Complete Time: 13:47 3 07/11 12:01 Order name: CBC with Diff; Complete Time: 13:47 sp3 07/11 12:01 Order name: ETOH Level; Complete Time: 13:47 3 07/11 12:01 Order name: Hepatic Function; Complete Time: 13:47 3 07/11 12:01 Order name: PT-INR; Complete Time: 13:47 3 07/11 12:01 Order name: Ptt, Activated; Complete Time: 13:47 sp3 07/11 12:01 Order name: Salicylate; Complete Time: 13:47 3 07/11 12:01 Order name: Urine Drug Screen; Complete Time: 13:47 3 07/11 12:01 Order name: CXR XRAY; Complete Time: 12:42 sp3 07/11 12:01 Order name: IV Saline Lock; Complete Time: 12:27 sp3 07/11 12:01 Order name: Labs collected and sent; Complete Time: 12:27 3 07/11 12:01 Order name: Suicide Screening ([place]); Complete Time: 12:02 sp3 Administered Medications: 12:26 Drug: NS 0.9% IV 1000 ml IV at 1 bolus Per protocol; 1000 mL bolus Route: IV; Rate: 1 bp bolus; Site: right forearm; 14:10 Follow up: IV Status: Completed infusion; IV Intake: 1000ml bp Disposition Summary: 07/12/23 13:52 Discharge Ordered Notes: Location: Home sp3 Condition: Stable sp3 Diagnosis - Manic episode, unspecified sp3 Followup: sp3 - With: Private Physician - When: Upon discharge from the Emergency Department - Reason: Continuance of care Discharge Instructions: - Discharge Summary Sheet sp3 - Maria Guadalupe sp3 Forms: - Medication Reconciliation Form sp3 - Thank You Letter sp3 - Antibiotic Education sp3 - Prescription Opioid Use sp3 - Patient Portal Instructions sp3 - Leadership Thank You Letter sp3 Signatures: Dispatcher [employer] Mansoor Kumar, RN RN Jessika Cade RN RN ap3 Unruly Cody MD MD sp3 Corrections: (The following items were deleted from the chart) 12: 12:02 ACETAMINOPHEN+C.LAB.BRZ ordered. EDMS EDMS 12: 12:02 BASIC METABOLIC PANEL+C.LAB.BRZ ordered. EDMS EDMS 12: 12:02 CBC+H.LAB.BRZ ordered. EDMS EDMS 12: 12:02 ETHANOL+C.LAB.BRZ ordered. EDMS EDMS 12:02 12:02 HEPATIC FUNCTION+C.LAB.BRZ ordered. EDMS EDMS 12: 12:02 PROTIME (+INR)+COAG.LAB.BRZ ordered. EDMS EDMS 12: 12:02 PTT, ACTIVATED+COAG.LAB.BRZ ordered. EDMS EDMS 12:02 12:02 SALICYLATE+C.LAB.BRZ ordered. EDMS EDMS 12:02 12:02 URINE DRUG SCREEN+UC.LAB.BRZ ordered. EDMS EDMS 12:02 12:02 Chest Single View+RAD.RAD.BRZ ordered. EDMS EDMS
--- NOTE | 2023-07-12 13:53 | ER ---
Nurse's Notes [facility] Name: Thao Lang Age: 28 yrs Sex: Female : 1995 Arrival Date: 07/12/2023 Time: 11:38 Bed 11 Private MD: Diagnosis: Manic episode, unspecified Presentation: 07/11 11:54 Chief complaint: Patient states: she is having concerns for allergic reaction after ap3 leaving recent job 3 days ago. Coronavirus screen: At this time, the client does not indicate any symptoms associated with coronavirus-19. Ebola Screen: No symptoms or risks identified at this time. 11:54 Method Of Arrival: Ambulatory ap3 11:57 Onset: The symptoms/episode began/occurred at an unknown time. Anaphylaxis evaluation, ap3 no signs or symptoms of anaphylaxis were noted. Initial Sepsis Screen: Does the patient meet any 2 criteria? HR > 90 bpm. Does the patient have a suspected source of infection? No. Patient's initial sepsis screen is negative. Risk Assessment: Do you want to hurt yourself or someone else? Patient reports no desire to harm self or others. Onset of symptoms is unknown. 11:57 Acuity: IZABELLA 4 ap3 Triage Assessment: 11:58 General: Appears in no apparent distress. Behavior is anxious. Pain: Denies pain. ap3 Neuro: Level of Consciousness is awake, alert, obeys commands, Oriented to person, place, time, situation. Cardiovascular: Patient's skin is warm and dry. Respiratory: Airway is patent Respiratory effort is even, unlabored, Respiratory pattern is regular, symmetrical. Derm: Rash noted that is on face. 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 - Infectious Disease History:: Denies. - Social history:: Smoking status: Patient denies any tobacco usage or history of. Screenin:59 Abuse screen: Denies threats or abuse. Nutritional screening: No deficits noted. ap3 Tuberculosis screening: No symptoms or risk factors identified. 11:59 [facility] ED Fall Risk Assessment (Adult) History of falling in the last 3 months, bp including since admission No falls in past 3 months (0 pts). Assessment: 11:59 General: SEE TRIAGE NOTE. Respiratory: Airway is patent Breath sounds are clear bp bilaterally. 12:44 Respiratory: Respiratory effort is even, unlabored. bp 13:49 Reassessment: Patient appears in no apparent distress at this time. Patient is alert, bp oriented x 3, equal unlabored respirations, skin warm/dry/pink. Vital Signs: 11:54 BP 124 / 88; Pulse 118; Resp 19; Temp 97.7; Pulse Ox 98% on R/A; Weight 117.93 kg; ap3 Height 5 ft. 4 in. ; 13:49 BP 121 / 71; Pulse 102; Resp 20; Pulse Ox 98% ; bp 11:54 Body Mass Index 44.63 (117.93 kg, 162.56 cm) ap3 ED Course: 11:40 Patient arrived in ED. rg4 11:42 Unruly Cody MD is Attending Physician. sp3 11:43 Sandro Archer, RN is Primary Nurse. rs5 11:58 Triage completed. ap3 11:59 Arm band placed on right wrist. ap3 11:59 Patient has correct armband on for positive identification. Pulse ox on. NIBP on. Door ap3 closed. Noise minimized. 11:59 Provided Education on: N/A. bp 12:26 Acetaminophen Sent. bp 12:27 Mansoor Gerber, RN is Primary Nurse. bp 12:27 Basic Metabolic Panel Sent. bp 12:27 CBC with Diff Sent. bp 12:27 ETOH Level Sent. bp 12:27 Hepatic Function Sent. bp 12:27 PT-INR Sent. bp 12:27 Ptt, Activated Sent. bp 12:27 Urine Drug Screen Sent. bp 12:27 Salicylate Sent. bp 12:27 Inserted saline lock: 22 gauge in right forearm, using aseptic technique. Blood bp collected. 12:28 CXR XRAY In Process Unspecified. EDMS 14:09 No provider procedures requiring assistance completed. IV discontinued, intact, bp bleeding controlled, No redness/swelling at site. Pressure dressing applied. Administered Medications: 12:26 Drug: NS 0.9% IV 1000 ml IV at 1 bolus Per protocol; 1000 mL bolus Route: IV; Rate: 1 bp bolus; Site: right forearm; 14:10 Follow up: IV Status: Completed infusion; IV Intake: 1000ml bp Medication: 11:59 VIS not applicable for this client. bp Intake: 14:10 IV: 1000ml; Total: 1000ml. bp Outcome: 13:52 Discharge ordered by . sp3 14:09 Discharged to home ambulatory, bp 14:09 Condition: stable 14:09 Discharge instructions given to patient, Instructed on discharge instructions, follow up and referral plans. Demonstrated understanding of instructions, follow-up care, 14:11 Patient left the ED. bp Signatures: Dispatcher [employer] Courtney Trevino rg4 Mansoor Gerber, RN RN bp Jessika Lai RN RN ap3 Unruly Cody MD MD sp3 Sandro Archer, RN RN rs5
[2023-07-12 14:27] VITALS: BP 121/71; TEMP 97.7; O2SAT 98
== END 2023-07-12 14:11 | disposition home or self-care (01) ==
LOC: ER 11:38
DX: F30.9 Manic episode, unspecified (principal)
CPT/HCPCS: 36415; 71045; 80048; 80076; 80143; 80179; 80307; 82077; 85025; 85610; 85730; 96360; 96361; 99284; J7030

== ENCOUNTER 2023-07-13 04:23 | Emergency (ER) | payer SELFPAY ==
--- OUTSIDE RECORDS SUMMARY | 2023-07-13 04:29 | XMS REPORT | Continuity of Care Document ---
Author Name Unknown Address [address] [facility] 1 [address] [place] [address] [facility] thconnect Address [address] [place] [address] [address] [place] [address] Care Team Providers Care Sewing Pattern Layout Technician Name Role Phone ESTEVAN ADAMS Primary Care Physician OMKAR Sierra Attending Clinician OMKAR Bender Attending Clinician JULISSA Marti Attending Clinician Unavailable JENNFIER PURI Attending Clinician Unavaila ESTEVAN Hills Attending Clinician Unavail able GC_GCBZW_Kadiyala_S Attending Clinician Unavaila lisa Adams Estevan SCHAEFFER Attending Clinician + Jessika Manrique MD Attending Clinician [phone] JESSIKA MANRIQUE Attending Clinician Unavailable Unknown, Attending Attending Clinician Unavailab Jennifer Simpson CNM Attending Clinician [phone] Doctor Unassigned, [place] Attending Clinician U SIRIA Dugan Attending Clinician Unavailab TIANA Argueta Attending Clinician Unavailable Tiana Antonio MD Attending Clinician [phone] Visit, [facility] Nurse Attending Clinician Siria Miller Attending Clinician + [phone] Maisha West RN Attending Clinician Unavailable EASOTN RIOJAS Attending Clinician Unavailable Nurse, Naun Rmchp Exp Cprit Obgyn Attending Clini luis felipe Unavailable JODEE ALMAZAN Attending Clinician Unavailable King MARC, Jodee Suarez Attending Clinician [phone] Zbigniew Fernandez MD Attending Clinician + [phone] Mariluz MARC, Glen Attending Clinician [phone] Marlon MARC, Leonel Attending Clinician + [phone] Ultrasound, Naun-Mfm Attending Clinician Unavaila Katelyn Hutchinson MD Attending Clinician + [phone] KATELYN CRUZ Attending Clinician Unavailable KATELYN CRUZ Attending Clinician Unavailable Lab, Naun-Rmchdaren Attending Clinician Unavailable Yelena Aaron SCHAEFFER Attending Clinician + AARON ALICEA Attending Clinician Unavail able Provider, Ang-Rmchp Temp Attending Clinician Dalila vailable Jori MARC, Silvana Attending Clinician [phone] SILVANA VENEGAS Attending Clinician Unavailable SILVANA VENEGAS Attending Clinician Unavailable Sukhjinder RAMÍREZP, Bo Hunt Attending Clinician [phone] BO RIVERA Attending Clinician Unavailyahaira Adhikari [facility], Nguyễn Attending Clinician [phone] AMAYA PEÑA Attending Clinician Unavailable Casey RAMÍREZP, Amaya Attending Clinician [phone] Palmira Phillips Attending Clinician Unavailyahaira Escoto MD, Yair Borjas Attending Clinician [phone] Sherman MARC, Gianni Chou Attending Clinician +[phone] Robbie Wolfe MD, Cristin Attending Clinician + Julissa Michele MD Attending Clinician +[phone] Reji Cruz DO Attending Clinician [phone] Seth [facility], Emma Attending Clinician + [phone] Zoe Toldeo MD Attending Clinician + [phone] Provider, [facility] Attending Clinician Un available Bony RAMÍREZP, Saadia Attending Clinician [phone] SAADIA LOVETT Attending Clinician Unavailable Delano Islas Attending Clinician +[phone] DELANO HANKINS Attending Clinician UnavailYOVANY Barnhart Attending Clinician Unavailable JAIME CLEMENT Attending Clinician Unavailable GC_GCBZW_Kadiyala_S Admitting Clinician UnavailJODEE León Admitting Clinician Unavailable Jodee Almazan MD Admitting Clinician Julissa Michele MD Admitting Clinician [phone] Payers Payer Name Policy Type Policy Number Effective Date Expirati on Date Source [employer] [place] [employer] [id number] 2016 00:00:00 [place] [employer] [id number] 2022 00:00:00 MEDICAID PENDING PENDING 2020 00:00:00 Problems Condition Name Condition Details Condition Category Status Onset Date Resolution Date Last Treatment Date Treating Clinician Comments Source Presence of intrauteri ne contracept yamila device Presence of intrauteri ne contracept yamila device Disease Active 7-13 00:00: 00 [facility] History of abnormal cervical Pap smear History of abnormal cervical Pap smear Disease Active 7- 00:00: 00 Overview: Formattin g of this note might be different from the original. 09/2020 LGSIL [facility] Folliculit is Folliculit is Disease Active 4-12 00:00: 00 [facility] Flu vaccine need Flu vaccine need Disease Active 3-30 00:00: 00 [facility] Vaginal lesion Vaginal lesion Disease Active 3-30 00:00: 00 [facility] Research study patient Research study patient Disease Active 2-16 00:00: 00 Overview: Formattin g of this note might be different from the original. PACT (fellow) [facility] Elevated blood-pres sure reading, without diagnosis of hypertensi on Elevated blood-pres sure reading, without diagnosis of hypertensi on Disease Active 2-15 00:00: 00 [facility] COVID COVID Disease Active 2-01 00:00: 00 [facility] GBS (group B Streptococ cus carrier), +RV culture, currently GBS (group B Streptococ cus carrier), +RV culture, currently Disease Active 1-27 00:00: 00 Overview: Formattin g of this note might be different from the original. Address in labor and delivery. [facility] Upper respirator y symptom Upper respirator y symptom Disease Active 1-18 00:00: 00 [facility] Anemia of mother in , antepartum Anemia of mother in , antepartum Disease Active 2020-03 2-16 00:00: 00 [facility] Abnormal quad screen Abnormal quad screen Disease Active 2020-03 2-16 00:00: 00 [facility] Abnormal glandular Papanicola ou smear of cervix Abnormal glandular Papanicola ou smear of cervix Disease Active 8-04 00:00: 00 Overview: Formattin g of this note might be different from the original. LGSIL on 2020 pap smear, needs repeat in 12 months [facility] Supervisio n of high risk in third trimester Supervisio n of high risk in third trimester Disease Active 10-10 00:00: 00 [facility] SAB (spontaneo us ) SAB (spontaneo us ) Disease Active 7 00:00: 00 [facility] in first trimester with history of ectopic in first trimester with history of ectopic Disease Active 10-10 00:00: 00 [facility] Primigravi da in third trimester Primigravi da in third trimester Disease Active 10-10 00:00: 00 [facility] BMI 45.0-49.9, adult BMI 45.0-49.9, adult Disease Active 719 00:00: 00 [facility] History of ectopic History of ectopic Disease Active 4-02 00:00: 00 [facility] Screening examinatio n for STD (sexually transmitte d disease) Screening examinatio n for STD (sexually transmitte d disease) Disease Active 2-16 00:00: 00 [facility] Morbid obesity Morbid obesity Disease Active 1- 00:00: 00 [facility] Allergies, Adverse Reactions, Alerts Allergy Name Allergy Type Status Severity Reaction(s) Onset Date Inactive Date Treating Clinician Comments Source NO KNOWN ALLERGIE S Drug Class Active [facility] Social History Social Habit Start Date Stop Date Quantity Comments Source History SDOH Alcohol Frequency [facility] History SDOH Alcohol Std Drinks [facility] History SDOH Alcohol Binge [facility] Gender identity [facility] Alcohol intake 2022-12-02 00:00:00 2022-12-02 00:00:00 Current drinker of alcohol (finding) [facility] History of Social function 2022-12-02 00:00:00 2022-12-02 00:00:00 [facility] Alcohol Comment 2022-10-02 00:00:00 2022-10-02 00:00:00 occasional [facility] Exposure to SARS-CoV-2 (event) 2022-04-20 00:00:00 2022-04-30 10:31:00 Not sure [facility] Tobacco use and exposure 2021-12-06 00:00:00 2021-12-06 00:00:00 Smokeless tobacco non-user [facility] Sex Assigned At 1995 00:00:00 1995 00:00:00 [facility] Smoking Status Start Date Stop Date Source Never smoked tobacco [facility] Medications Ordered Medication Name Filled Medication Name Start Date Stop Date Current Medication? Ordering Clinician Indication Dosage Frequency Signature (SIG) Comments Components Source azelastine 137 mcg (0.1 %) nasal spray 12-05 00:00: 00 Yes [id number] 1{spray } Use 1 [place] in each nostril in the morning and 1 [place] in the evening. Use in each nostril as directed [facility] bromphenira mine-pseudo ephedrine-D M (BROMFED DM) mg/5 mL syrup 12-05 00:00: 00 Yes [id number] 10mL Take 10 mL by mouth 4 (four) times daily as needed for Congestion /Allergies , Cough or Cold symptoms. [facility] fluticasone propionate 50 mcg/actuati on nasal spray 12-05 00:00: 00 Yes [id number] 1{spray } Use 1 [place] in each nostril in the morning. [facility] methylPREDN ISolone (MEDROL, KRISTA,) 4 mg tablets 12-05 00:00: 00 Yes [id number] Take by mouth SEE-INSTRU CTIONS. follow package directions [facility] bromphenira mine-pseudo ephedrine-D M (BROMFED DM) 2-30-10 mg/5 mL syrup 12-02 00:00: 00 12-05 00:00 :00 No [id number] 10mL Take 10 mL by mouth 4 (four) times daily as needed for Congestion /Allergies , Cough or Cold symptoms. [facility] azelastine 137 mcg (0.1 %) nasal spray 12-02 00:00: 00 12-05 00:00 :00 No [id number] 1{spray } Use 1 [place] in each nostril in the morning and 1 [place] in the evening. Use in each nostril as directed [facility] fluticasone propionate 50 mcg/actuati on nasal spray 12-02 00:00: 00 12-05 00:00 :00 No [id number] 1{spray } Use 1 [place] in each nostril in the morning. [facility] methylPREDN ISolone (MEDROL, KRISTA,) 4 mg tablets 12-02 00:00: 00 12-05 00:00 :00 No [id number] Take by mouth SEE-INSTRU CTIONS. follow package directions [facility] metroNIDAZO LE 500 mg tablet 10-04 00:00: 00 10-05 04:59 :00 No [id number] 2000mg Take 4 tablets by mouth once now for 1 dose. [facility] copper (PARAGARD T 380A) IUD 1 Intra Uterine Device 2-06 17:45: 00 04-30 17:01 :00 No [id number] 1{IUD} [facility] amoxicillin -clavulanat e (AUGMENTIN) 875-125 mg per tablet 2021-03 00:00: 00 02-01 05:59 :00 No [id number] 1{tbl} Take 1 tablet by mouth in the morning and 1 tablet in the evening. Do all this for 7 days. [facility] phenazopyri dine 100 mg tablet 2021-03 00:00: 00 01-27 04:59 :00 No [id number] 200mg Take 2 tablets by mouth in the morning and 2 tablets at noon and 2 tablets in the evening. Do all this for 2 days. [facility] levonorgest rel-ethinyl estradiol (SRONYX) 0.1-20 mg-mcg per tablet -14 00:00: 00 10-02 00:00 :00 No [id number] 1{tbl} Take 1 tablet by mouth in the morning. [facility] ondansetron 4 mg disintegrat ing tablet 07-03 00:00: 00 10-02 00:00 :00 No [id number] 4mg Take 1 tablet by mouth every 8 (eight) hours as needed for Nausea and Vomiting (N/V). [facility] norethindro ne 0.35 mg tablet 3-30 00:00: 00 10-02 00:00 :00 No [id number] 1{tbl} Take 1 tablet by mouth daily. [facility] Immunizations Ordered Immunization Name Filled Immunization Name Date Status Comments Source [facility] 2021-05-17 00:00:00 Completed [facility] HPV9 2021-05-17 00:00:00 Completed [facility] 2021-05-17 00:00:00 Completed [facility] 2021-05-17 00:00:00 Completed [place] [address] 2021-05-17 00:00:00 Completed [facility] HPV9 2021-05-17 00:00:00 Completed [facility] HPV9 2021-05-17 00:00:00 Completed [facility] HPV9 2021-05-17 00:00:00 Completed [facility] HPV9 2021-05-17 00:00:00 Completed [facility] HPV9 2021-05-17 00:00:00 Completed [facility] HPV9 2021-05-17 00:00:00 Completed [facility] HPV9 2021-05-17 00:00:00 Completed [facility] HPV9 2021-05-17 00:00:00 Completed [facility] HPV9 2021-05-17 00:00:00 Completed [facility] HPV9 2021-05-17 00:00:00 Completed [facility] HPV9 2021-05-17 00:00:00 Completed [facility] HPV9 2021-05-17 00:00:00 Completed [facility] HPV9 2021-05-17 00:00:00 Completed [facility] HPV9 2021-05-17 00:00:00 Completed [facility] HPV9 2021-05-17 00:00:00 Completed [facility] HPV9 2021-05-17 00:00:00 Completed [facility] HPV9 2021-05-17 00:00:00 Completed [facility] HPV9 2021-05-17 00:00:00 Completed [facility] HPV9 2021-05-17 00:00:00 Completed [facility] HPV9 2021-05-17 00:00:00 Completed [facility] HPV9 2021-05-17 00:00:00 Completed [facility] HPV9 2021-05-17 00:00:00 Completed [facility] TDAP 2021-02-22 00:00:00 Completed [facility] TDAP 2021-02-22 00:00:00 Completed [facility] TDAP 2021-02-22 00:00:00 Completed [facility] TDAP 2021-02-22 00:00:00 Completed [facility] TDAP 2021-02-22 00:00:00 Completed [facility] TDAP 2021-02-22 00:00:00 Completed [facility] TDAP 2021-02-22 00:00:00 Completed [facility] TDAP 2021-02-22 00:00:00 Completed [facility] TDAP 2021-02-22 00:00:00 Completed [facility] TDAP 2021-02-22 00:00:00 Completed [facility] TDAP 2021-02-22 00:00:00 Completed [facility] TDAP 2021-02-22 00:00:00 Completed [facility] TDAP 2021-02-22 00:00:00 Completed [facility] TDAP 2021-02-22 00:00:00 Completed [facility] TDAP 2021-02-22 00:00:00 Completed [facility] TDAP 2021-02-22 00:00:00 Completed [facility] TDAP 2021-02-22 00:00:00 Completed [facility] TDAP 2021-02-22 00:00:00 Completed [facility] TDAP 2021-02-22 00:00:00 Completed [facility] TDAP 2021-02-22 00:00:00 Completed [facility] TDAP 2021-02-22 00:00:00 Completed [facility] TDAP 2021-02-22 00:00:00 Completed [facility] TDAP 2021-02-22 00:00:00 Completed [facility] TDAP 2021-02-22 00:00:00 Completed [facility] TDAP 2021-02-22 00:00:00 Completed [facility] TDAP 2021-02-22 00:00:00 Completed [facility] TDAP 2021-02-22 00:00:00 Completed [facility] SARS-COV-2 COVID-19 MAURICIO/J&J VACCINE 2020-07-26 00:00:00 Completed [facility] SARS-COV-2 COVID-19 MAURICIO/J&J VACCINE 2020-07-26 00:00:00 Completed [facility] SARS-COV-2 COVID-19 MAURICIO/J&J VACCINE 2020-07-26 00:00:00 Completed [facility] SARS-COV-2 COVID-19 MAURICIO/J&J VACCINE 2020-07-26 00:00:00 Completed [facility] SARS-COV-2 COVID-19 MAURICIO/J&J VACCINE 2020-07-26 00:00:00 Completed [facility] SARS-COV-2 COVID-19 MAURICIO/J&J VACCINE 2020-07-26 00:00:00 Completed [facility] SARS-COV-2 COVID-19 MAURICIO/J&J VACCINE 2020-07-26 00:00:00 Completed [facility] SARS-COV-2 COVID-19 MAURICIO/J&J VACCINE 2020-07-26 00:00:00 Completed [facility] SARS-COV-2 COVID-19 MAURICIO/J&J VACCINE 2020-07-26 00:00:00 Completed [facility] SARS-COV-2 COVID-19 MAURICIO/J&J VACCINE 2020-07-26 00:00:00 Completed [facility] SARS-COV-2 COVID-19 MAURICIO/J&J VACCINE 2020-07-26 00:00:00 Completed [facility] SARS-COV-2 COVID-19 MAURICIO/J&J VACCINE 2020-07-26 00:00:00 Completed [facility] SARS-COV-2 COVID-19 MAURICIO/J&J VACCINE 2020-07-26 00:00:00 Completed [facility] SARS-COV-2 COVID-19 MAURICIO/J&J VACCINE 2020-07-26 00:00:00 Completed [facility] SARS-COV-2 COVID-19 MAURICIO/J&J VACCINE 2020-07-26 00:00:00 Completed [facility] SARS-COV-2 COVID-19 MAURICIO/J&J VACCINE 2020-07-26 00:00:00 Completed [facility] SARS-COV-2 COVID-19 MAURICIO/J&J VACCINE 2020-07-26 00:00:00 Completed [facility] SARS-COV-2 COVID-19 MAURICIO/J&J VACCINE 2020-07-26 00:00:00 Completed [facility] SARS-COV-2 COVID-19 MAURICIO/J&J VACCINE 2020-07-26 00:00:00 Completed [facility] SARS-COV-2 COVID-19 MAURICIO/J&J VACCINE 2020-07-26 00:00:00 Completed [facility] SARS-COV-2 COVID-19 MAURICIO/J&J VACCINE 2020-07-26 00:00:00 Completed [facility] SARS-COV-2 COVID-19 MAURICIO/J&J VACCINE 2020-07-26 00:00:00 Completed [facility] SARS-COV-2 COVID-19 MAURICIO/J&J VACCINE 2020-07-26 00:00:00 Completed [facility] SARS-COV-2 COVID-19 MAURICIO/J&J VACCINE 2020-07-26 00:00:00 Completed [facility] SARS-COV-2 COVID-19 MAURICIO/J&J VACCINE 2020-07-26 00:00:00 Completed [facility] SARS-COV-2 COVID-19 MAURICIO/J&J VACCINE 2020-07-26 00:00:00 Completed [facility] SARS-COV-2 COVID-19 MAURICIO/J&J VACCINE 2020-07-26 00:00:00 Completed [facility] HPV 2013-11-11 00:00:00 Completed [facility] HPV 2013-11-11 00:00:00 Completed [facility] HPV 2013-11-11 00:00:00 Completed [facility] HPV 2013-11-11 00:00:00 Completed [facility] HPV 2013-11-11 00:00:00 Completed [facility] HPV 2013-11-11 00:00:00 Completed [facility] HPV 2013-11-11 00:00:00 Completed [facility] HPV 2013-11-11 00:00:00 Completed [facility] HPV 2013-11-11 00:00:00 Completed [facility] HPV 2013-11-11 00:00:00 Completed [facility] HPV 2013-11-11 00:00:00 Completed [facility] HPV 2013-11-11 00:00:00 Completed [facility] HPV 2013-11-11 00:00:00 Completed [facility] HPV 2013-11-11 00:00:00 Completed [facility] HPV 2013-11-11 00:00:00 Completed [facility] HPV 2013-11-11 00:00:00 Completed [facility] HPV 2013-11-11 00:00:00 Completed [facility] HPV 2013-11-11 00:00:00 Completed [facility] HPV 2013-11-11 00:00:00 Completed [facility] HPV 2013-11-11 00:00:00 Completed [facility] HPV 2013-11-11 00:00:00 Completed [facility] HPV 2013-11-11 00:00:00 Completed [facility] HPV 2013-11-11 00:00:00 Completed [facility] HPV 2013-11-11 00:00:00 Completed [facility] HPV 2013-11-11 00:00:00 Completed [facility] HPV 2013-11-11 00:00:00 Completed [facility] HPV 2013-11-11 00:00:00 Completed [facility] HPV 2013-09-11 00:00:00 Completed [facility] HPV 2013-09-11 00:00:00 Completed [facility] HPV 2013-09-11 00:00:00 Completed [facility] HPV 2013-09-11 00:00:00 Completed [facility] HPV 2013-09-11 00:00:00 Completed [facility] HPV 2013-09-11 00:00:00 Completed [facility] HPV 2013-09-11 00:00:00 Completed [facility] HPV 2013-09-11 00:00:00 Completed [facility] HPV 2013-09-11 00:00:00 Completed [facility] HPV 2013-09-11 00:00:00 Completed [facility] HPV 2013-09-11 00:00:00 Completed [facility] HPV 2013-09-11 00:00:00 Completed [facility] HPV 2013-09-11 00:00:00 Completed [facility] HPV 2013-09-11 00:00:00 Completed [facility] HPV 2013-09-11 00:00:00 Completed [facility] HPV 2013-09-11 00:00:00 Completed [facility] HPV 2013-09-11 00:00:00 Completed [facility] HPV 2013-09-11 00:00:00 Completed [facility] HPV 2013-09-11 00:00:00 Completed [facility] HPV 2013-09-11 00:00:00 Completed [facility] HPV 2013-09-11 00:00:00 Completed [facility] HPV 2013-09-11 00:00:00 Completed [facility] HPV 2013-09-11 00:00:00 Completed [facility] HPV 2013-09-11 00:00:00 Completed [facility] HPV 2013-09-11 00:00:00 Completed [facility] HPV 2013-09-11 00:00:00 Completed [facility] HPV 2013-09-11 00:00:00 Completed [facility] HPV 2013-05-10 00:00:00 Completed [facility] HPV 2013-05-10 00:00:00 Completed [facility] HPV 2013-05-10 00:00:00 Completed [facility] HPV 2013-05-10 00:00:00 Completed [facility] HPV 2013-05-10 00:00:00 Completed [facility] HPV 2013-05-10 00:00:00 Completed [facility] HPV 2013-05-10 00:00:00 Completed [facility] HPV 2013-05-10 00:00:00 Completed [facility] HPV 2013-05-10 00:00:00 Completed [facility] HPV 2013-05-10 00:00:00 Completed [facility] HPV 2013-05-10 00:00:00 Completed [facility] HPV 2013-05-10 00:00:00 Completed [facility] HPV 2013-05-10 00:00:00 Completed [facility] HPV 2013-05-10 00:00:00 Completed [facility] HPV 2013-05-10 00:00:00 Completed [facility] HPV 2013-05-10 00:00:00 Completed [facility] HPV 2013-05-10 00:00:00 Completed [facility] HPV 2013-05-10 00:00:00 Completed [facility] HPV 2013-05-10 00:00:00 Completed [facility] HPV 2013-05-10 00:00:00 Completed [facility] HPV 2013-05-10 00:00:00 Completed [facility] HPV 2013-05-10 00:00:00 Completed [facility] HPV 2013-05-10 00:00:00 Completed [facility] HPV 2013-05-10 00:00:00 Completed [facility] HPV 2013-05-10 00:00:00 Completed [facility] HPV 2013-05-10 00:00:00 Completed [facility] HPV 2013-05-10 00:00:00 Completed [facility] Meningococcal Polysaccharide (groups A, C, Y and W-135) conjugate vaccine (MCV4P) 2012-10-16 00:00:00 Completed [facility] Meningococcal Polysaccharide (groups A, C, Y and W-135) conjugate vaccine (MCV4P) 2012-10-16 00:00:00 Completed [facility] Meningococcal Polysaccharide (groups A, C, Y and W-135) conjugate vaccine (MCV4P) 2012-10-16 00:00:00 Completed [facility] Meningococcal Polysaccharide (groups A, C, Y and W-135) conjugate vaccine (MCV4P) 2012-10-16 00:00:00 Completed [facility] Meningococcal Polysaccharide (groups A, C, Y and W-135) conjugate vaccine (MCV4P) 2012-10-16 00:00:00 Completed [facility] Td 2010-10-28 00:00:00 Completed [facility] Td 2010-10-28 00:00:00 Completed [facility] Td 2010-10-28 00:00:00 Completed [facility] Td 2010-10-28 00:00:00 Completed [facility] Td 2010-10-28 00:00:00 Completed [facility] Td 2010-10-28 00:00:00 Completed [facility] Td 2010-10-28 00:00:00 Completed [facility] Td 2010-10-28 00:00:00 Completed [facility] Td 2010-10-28 00:00:00 Completed [facility] Td 2010-10-28 00:00:00 Completed [facility] Td 2010-10-28 00:00:00 Completed [facility] Td 2010-10-28 00:00:00 Completed [facility] TD, NOS 2010-10-28 00:00:00 Completed [facility] TD, NOS 2010-10-28 00:00:00 Completed [facility] TD, NOS 2010-10-28 00:00:00 Completed [facility] TD, NOS 2010-10-28 00:00:00 Completed [facility] TD, NOS 2010-10-28 00:00:00 Completed [facility] TD, NOS 2010-10-28 00:00:00 Completed [facility] TD, NOS 2010-10-28 00:00:00 Completed [facility] TD, NOS 2010-10-28 00:00:00 Completed [facility] TD, NOS 2010-10-28 00:00:00 Completed [facility] TD, NOS 2010-10-28 00:00:00 Completed [facility] TD, NOS 2010-10-28 00:00:00 Completed [facility] TD, NOS 2010-10-28 00:00:00 Completed [facility] TD, NOS 2010-10-28 00:00:00 Completed [facility] TD, NOS 2010-10-28 00:00:00 Completed [facility] TD, NOS 2010-10-28 00:00:00 Completed [facility] HEPATITIS A 2009-09-16 00:00:00 Completed [facility] HEPATITIS A 2009-09-16 00:00:00 Completed [facility] HEPATITIS A 2009-09-16 00:00:00 Completed [facility] HEPATITIS A 2009-09-16 00:00:00 Completed [facility] HEPATITIS A 2009-09-16 00:00:00 Completed [facility] HEPATITIS A 2008-07-28 00:00:00 Completed [facility] Meningococcal Polysaccharide (groups A, C, Y and W-135) conjugate vaccine (MCV4P) 2008-07-28 00:00:00 Completed [facility] MMR 2008-07-28 00:00:00 Completed [facility] TDAP 2008-07-28 00:00:00 Completed [facility] HEPATITIS A 2008-07-28 00:00:00 Completed [facility] Meningococcal Polysaccharide (groups A, C, Y and W-135) conjugate vaccine (MCV4P) 2008-07-28 00:00:00 Completed [facility] MMR 2008-07-28 00:00:00 Completed [facility] TDAP 2008-07-28 00:00:00 Completed [facility] HEPATITIS A 2008-07-28 00:00:00 Completed [facility] Meningococcal Polysaccharide (groups A, C, Y and W-135) conjugate vaccine (MCV4P) 2008-07-28 00:00:00 Completed [facility] MMR 2008-07-28 00:00:00 Completed [facility] TDAP 2008-07-28 00:00:00 Completed [facility] HEPATITIS A 2008-07-28 00:00:00 Completed [facility] Meningococcal Polysaccharide (groups A, C, Y and W-135) conjugate vaccine (MCV4P) 2008-07-28 00:00:00 Completed [facility] MMR 2008-07-28 00:00:00 Completed [facility] TDAP 2008-07-28 00:00:00 Completed [facility] HEPATITIS A 2008-07-28 00:00:00 Completed [facility] Meningococcal Polysaccharide (groups A, C, Y and W-135) conjugate vaccine (MCV4P) 2008-07-28 00:00:00 Completed [facility] MMR 2008-07-28 00:00:00 Completed [facility] TDAP 2008-07-28 00:00:00 Completed [facility] DTaP, Unspecified Formulation 2002-04-01 00:00:00 Completed [facility] MMR 2002-04-01 00:00:00 Completed [facility] IPV 2002-04-01 00:00:00 Completed [facility] DTaP, Unspecified Formulation 2002-04-01 00:00:00 Completed [facility] MMR 2002-04-01 00:00:00 Completed [facility] IPV 2002-04-01 00:00:00 Completed [facility] DTaP, Unspecified Formulation 2002-04-01 00:00:00 Completed [facility] MMR 2002-04-01 00:00:00 Completed [facility] IPV 2002-04-01 00:00:00 Completed [facility] DTaP, Unspecified Formulation 2002-04-01 00:00:00 Completed [facility] MMR 2002-04-01 00:00:00 Completed [facility] IPV 2002-04-01 00:00:00 Completed [facility] DTaP, Unspecified Formulation 2002-04-01 00:00:00 Completed [facility] MMR 2002-04-01 00:00:00 Completed [facility] IPV 2002-04-01 00:00:00 Completed [facility] DPT/HIB 1996 00:00:00 Completed [facility] Hep B, Unspecified Formulation 1996 00:00:00 Completed [facility] Poliovirus, Live, Oral, Trivalent 1996 00:00:00 Completed [facility] DPT/HIB 1996 00:00:00 Completed [facility] Hep B, Unspecified Formulation 1996 00:00:00 Completed [facility] Poliovirus, Live, Oral, Trivalent 1996 00:00:00 Completed [facility] DPT/HIB 1996 00:00:00 Completed [facility] Hep B, Unspecified Formulation 1996 00:00:00 Completed [facility] Poliovirus, Live, Oral, Trivalent 1996 00:00:00 Completed [facility] DPT/HIB 1996 00:00:00 Completed [facility] Hep B, Unspecified Formulation 1996 00:00:00 Completed [facility] Poliovirus, Live, Oral, Trivalent 1996 00:00:00 Completed [facility] DPT/HIB 1996 00:00:00 Completed [facility] Hep B, Unspecified Formulation 1996 00:00:00 Completed [facility] Poliovirus, Live, Oral, Trivalent 1996 00:00:00 Completed [facility] Hep B, Unspecified Formulation 1996 00:00:00 Completed [facility] Hep B, Unspecified Formulation 1996 00:00:00 Completed [facility] Hep B, Unspecified Formulation 1996 00:00:00 Completed [facility] Hep B, Unspecified Formulation 1996 00:00:00 Completed [facility] Hep B, Unspecified Formulation 1996 00:00:00 Completed [facility] TD, NOS Unknown Completed [facility] HPV Unknown Completed [facility] SARS-COV-2 COVID-19 MAURICIO/J&J VACCINE Unknown Completed [facility] TDAP Unknown Completed [facility] HPV Unknown Completed [facility] HPV Unknown Completed [facility] HPV9 Unknown Completed [facility] DTaP, Unspecified Formulation Unknown Completed [facility] DPT/HIB Unknown Completed [facility] HEPATITIS A Unknown Completed [facility] HEPATITIS A Unknown Completed [facility] Hep B, Unspecified Formulation Unknown Completed [facility] Hep B, Unspecified Formulation Unknown Completed [facility] Meningococcal Polysaccharide (groups A, C, Y and W-135) conjugate vaccine (MCV4P) Unknown Completed [facility] Meningococcal Polysaccharide (groups A, C, Y and W-135) conjugate vaccine (MCV4P) Unknown Completed [facility] MMR Unknown Completed [facility] MMR Unknown Completed [facility] IPV Unknown Completed [facility] Poliovirus, Live, Oral, Trivalent Unknown Completed [facility] TDAP Unknown Completed [facility] TD, NOS Unknown Completed [facility] HPV Unknown Completed [facility] SARS-COV-2 COVID-19 MAURICIO/J&J VACCINE Unknown Completed [facility] TDAP Unknown Completed [facility] HPV Unknown Completed [facility] HPV Unknown Completed [facility] HPV9 Unknown Completed [facility] DTaP, Unspecified Formulation Unknown Completed [facility] DPT/HIB Unknown Completed [facility] HEPATITIS A Unknown Completed [facility] HEPATITIS A Unknown Completed [facility] Hep B, Unspecified Formulation Unknown Completed [facility] Hep B, Unspecified Formulation Unknown Completed [facility] Meningococcal Polysaccharide (groups A, C, Y and W-135) conjugate vaccine (MCV4P) Unknown Completed [facility] Meningococcal Polysaccharide (groups A, C, Y and W-135) conjugate vaccine (MCV4P) Unknown Completed [facility] MMR Unknown Completed [facility] MMR Unknown Completed [facility] IPV Unknown Completed [facility] Poliovirus, Live, Oral, Trivalent Unknown Completed [facility] TDAP Unknown Completed [facility] TD, NOS Unknown Completed [facility] HPV Unknown Completed [facility] SARS-COV-2 COVID-19 MAURICIO/J&J VACCINE Unknown Completed [facility] TDAP Unknown Completed [facility] HPV Unknown Completed [facility] HPV Unknown Completed [facility] DTaP, Unspecified Formulation Unknown Completed [facility] DPT/HIB Unknown Completed [facility] HEPATITIS A Unknown Completed [facility] HEPATITIS A Unknown Completed [facility] Hep B, Unspecified Formulation Unknown Completed [facility] Hep B, Unspecified Formulation Unknown Completed [facility] Meningococcal Polysaccharide (groups A, C, Y and W-135) conjugate vaccine (MCV4P) Unknown Completed [facility] Meningococcal Polysaccharide (groups A, C, Y and W-135) conjugate vaccine (MCV4P) Unknown Completed [facility] MMR Unknown Completed [facility] MMR Unknown Completed [facility] IPV Unknown Completed [facility] Poliovirus, Live, Oral, Trivalent Unknown Completed [facility] TDAP Unknown Completed [facility] TD, NOS Unknown Completed [facility] HPV Unknown Completed [facility] SARS-COV-2 COVID-19 MAURICIO/J&J VACCINE Unknown Completed [facility] HPV Unknown Completed [facility] HPV Unknown Completed [facility] DTaP, Unspecified Formulation Unknown Completed [facility] DPT/HIB Unknown Completed [facility] HEPATITIS A Unknown Completed [facility] HEPATITIS A Unknown Completed [facility] Hep B, Unspecified Formulation Unknown Completed [facility] Hep B, Unspecified Formulation Unknown Completed [facility] Meningococcal Polysaccharide (groups A, C, Y and W-135) conjugate vaccine (MCV4P) Unknown Completed [facility] Meningococcal Polysaccharide (groups A, C, Y and W-135) conjugate vaccine (MCV4P) Unknown Completed [facility] MMR Unknown Completed [facility] MMR Unknown Completed [facility] IPV Unknown Completed [facility] Poliovirus, Live, Oral, Trivalent Unknown Completed [facility] TDAP Unknown Completed [facility] TD, NOS Unknown Completed [facility] HPV Unknown Completed [facility] SARS-COV-2 COVID-19 MAURICIO/J&J VACCINE Unknown Completed [facility] TDAP Unknown Completed [facility] HPV Unknown Completed [facility] HPV Unknown Completed [facility] HPV9 Unknown Completed [facility] DTaP, Unspecified Formulation Unknown Completed [facility] DPT/HIB Unknown Completed [facility] HEPATITIS A Unknown Completed [facility] HEPATITIS A Unknown Completed [facility] Hep B, Unspecified Formulation Unknown Completed [facility] Hep B, Unspecified Formulation Unknown Completed [facility] Meningococcal Polysaccharide (groups A, C, Y and W-135) conjugate vaccine (MCV4P) Unknown Completed [facility] Meningococcal Polysaccharide (groups A, C, Y and W-135) conjugate vaccine (MCV4P) Unknown Completed [facility] MMR Unknown Completed [facility] MMR Unknown Completed [facility] IPV Unknown Completed [facility] Poliovirus, Live, Oral, Trivalent Unknown Completed [facility] TDAP Unknown Completed [facility] Vital Signs Vital Name Observation Time Observation Value Comments S ource Systolic blood pressure 2022-12-03 00:15:00 118 mm[Hg] [facility] Diastolic blood pressure 2022-12-03 00:15:00 79 mm[Hg] [facility] Heart rate 2022-12-03 00:15:00 99 /min [facility] Body temperature 2022-12-03 00:15:00 37.44 Emmanuelle [facility] Respiratory rate 2022-12-03 00:15:00 15 /min [facility] Body height 2022-12-03 00:15:00 165.1 cm [facility] Body weight 2022-12-03 00:15:00 138.256 kg [facility] BMI 2022-12-03 00:15:00 50.72 kg/m2 [facility] Oxygen saturation in Arterial blood by Pulse oximetry 2022-12-03 00:15:00 98 /min [facility] Systolic blood pressure 2022-10-02 18:30:00 136 mm[Hg] [facility] Diastolic blood pressure 2022-10-02 18:30:00 75 mm[Hg] [facility] Heart rate 2022-10-02 18:30:00 80 /min [facility] Body temperature 2022-10-02 18:30:00 36.83 Emmanuelle [facility] Respiratory rate 2022-10-02 18:30:00 18 /min [facility] Body height 2022-10-02 18:30:00 162.6 cm [facility] Body weight 2022-10-02 18:30:00 132.904 kg [facility] BMI 2022-10-02 18:30:00 50.29 kg/m2 [facility] Systolic blood pressure 2022-04-30 16:31:00 133 mm[Hg] [facility] Diastolic blood pressure 2022-04-30 16:31:00 84 mm[Hg] [facility] Heart rate 2022-04-30 16:31:00 76 /min [facility] Body temperature 2022-04-30 16:31:00 35.83 Emmanuelle [facility] Respiratory rate 2022-04-30 16:31:00 18 /min [facility] Body height 2022-04-30 16:31:00 162.6 cm [facility] Body weight 2022-04-30 16:31:00 131.815 kg [facility] BMI 2022-04-30 16:31:00 49.88 kg/m2 [facility] Systolic blood pressure 2022-04-19 15:39:00 119 mm[Hg] [facility] Diastolic blood pressure 2022-04-19 15:39:00 76 mm[Hg] [facility] Heart rate 2022-04-19 15:39:00 81 /min [facility] Body temperature 2022-04-19 15:39:00 36.61 Emmanuelle [facility] Respiratory rate 2022-04-19 15:39:00 18 /min [facility] Body height 2022-04-19 15:39:00 162.6 cm [facility] Body weight 2022-04-19 15:39:00 131.044 kg [facility] BMI 2022-04-19 15:39:00 49.59 kg/m2 [facility] Systolic blood pressure 2022-03-03 15:17:00 125 mm[Hg] [facility] Diastolic blood pressure 2022-03-03 15:17:00 87 mm[Hg] [facility] Heart rate 2022-03-03 15:17:00 74 /min [facility] Body temperature 2022-03-03 15:17:00 36.83 Emmanuelle [facility] Respiratory rate 2022-03-03 15:17:00 18 /min [facility] Body height 2022-03-03 15:17:00 162.6 cm [facility] Body weight 2022-03-03 15:17:00 113.399 kg [facility] BMI 2022-03-03 15:17:00 42.91 kg/m2 [facility] Oxygen saturation in Arterial blood by Pulse oximetry 2022-03-03 15:17:00 99 /min [facility] Systolic blood pressure 2022-02-14 20:28:00 138 mm[Hg] [facility] Diastolic blood pressure 2022-02-14 20:28:00 85 mm[Hg] [facility] Heart rate 2022-02-14 20:28:00 66 /min [facility] Body temperature 2022-02-14 20:28:00 36.33 Emmanuelle [facility] Respiratory rate 2022-02-14 20:28:00 20 /min [facility] Body height 2022-02-14 20:28:00 162.6 cm [facility] Body weight 2022-02-14 20:28:00 124.059 kg [facility] BMI 2022-02-14 20:28:00 46.95 kg/m2 [facility] Systolic blood pressure 2022-01-24 22:13:00 144 mm[Hg] Had to try 3x before getting a reading [facility] Diastolic blood pressure 2022-01-24 22:13:00 98 mm[Hg] Had to try 3x before getting a reading [facility] Heart rate 2022-01-24 22:13:00 97 /min [facility] Body temperature 2022-01-24 22:13:00 36.89 Emmanuelle [facility] Respiratory rate 2022-01-24 22:13:00 18 /min [facility] Body height 2022-01-24 22:13:00 162.6 cm [facility] Body weight 2022-01-24 22:13:00 125.919 kg [facility] BMI 2022-01-24 22:13:00 47.65 kg/m2 [facility] Oxygen saturation in Arterial blood by Pulse oximetry 2022-01-24 22:13:00 98 /min [facility] Systolic blood pressure 2021-12-06 13:30:00 124 mm[Hg] [facility] Diastolic blood pressure 2021-12-06 13:30:00 54 mm[Hg] [facility] Heart rate 2021-12-06 13:30:00 72 /min [facility] Body temperature 2021-12-06 13:30:00 36.28 Emmanuelle [facility] Respiratory rate 2021-12-06 13:30:00 18 /min [facility] Body height 2021-12-06 13:30:00 165.1 cm [facility] Body weight 2021-12-06 13:30:00 130.296 kg [facility] BMI 2021-12-06 13:30:00 47.80 kg/m2 [facility] Procedures Procedure Date / Time Performed Performing Clinician Source POCT SARS-COV-2 ANTIGEN (BINAX NOW) 2022-12-03 00:31:00 Jessika Manrique [facility] CBC WITH DIFF 2022-10-02 19:30:00 Jennifer Puri [facility] GLYCOSYLATED HEMOGLOBIN (A1C) 2022-10-02 19:30:00 Jennifer Puri [facility] HCV ANTIBODY 2022-10-02 19:30:00 [facility] CHLAMYDIA AMPLIFIED ASSAY 2022-10-02 19:30:00 Jennifer Puri [facility] HIV 1/2 AG-AB WITH REFLEX 2022-10-02 19:30:00 Jennifer Puri [facility] TRICHOMONAS AMPLIFIED ASSAY 2022-10-02 19:30:00 Jennifer Puri [facility] PAP SMEAR-LIQUID BASED-CP 2022-10-02 19:30:00 Jennifer Puri [facility] SYPHILIS IGG/IGM 2022-10-02 19:30:00 Jennifer Puri [facility] PATIENT FINANCIAL POLICY 2022-10-02 18:08:46 Doctor Unassigned, [place] [facility] POCT TEST 2022-04-30 16:35:00 Jonel Adams [facility] DISCLOSURE AND CONSENT, MEDICAL AND SURGICAL PROCEDURES 2022-04-30 06:01:00 Doctor Unassigned, [place] [facility] POCT TEST 2022-04-19 15:41:00 Jonel Adams [facility] BASIC METABOLIC PANEL (NA, K, CL, CO2, GLUCOSE, BUN, CREATININE, CA) 2022-03-03 15:57:00 Tiana Antonio [facility] ETHANOL 2022-03-03 15:57:00 Tiana Antonio [facility] CBC WITH DIFF 2022-03-03 15:57:00 Tiana Antonio [facility] URINALYSIS 2022-03-03 15:57:00 Tiana Antonio [facility] URINE DRUG (IMMUNOASSAY) - COMPREHENSIVE DRUG SCREEN W/O REFLEX 2022-03-03 15:57:00 Tiana Antonio [facility] HB ECG ROUTINE & RHYTHM STRIP 2022-03-03 15:55:48 Tiana Antonio [facility] POCT TEST 2022-02-14 20:48:00 Jonel Adams [facility] ASSIGNMENT OF BENEFITS 2022-02-14 19:38:06 Docto r Unassigned, [place] [facility] POCT URINALYSIS 2022-01-24 22:31:00 Jessika Manrique [facility] POCT TEST 2021-12-06 15:36:00 Jonel Adams [facility] Encounters Start Date/Time End Date/Time Encounter Type Admission Type Attending Clinicians Care Facility Care Department Encounter ID Source 2021-01-22 06:46:10 Emergency [facility] [id number] [facility] 2023-02-21 15:00:00 2023-02-21 15:00:00 Outpatient ESTEVAN ALCALA [facility] [id number] [facility] 2023-01-28 00:00:00 2023-01-28 00:00:00 Outpatient GC_GCBZW_Ka diyala_S PRIV PRIV [id number] [facility] 2023-01-22 08:30:00 2023-01-22 08:30:00 Outpatient ESTEVAN ALCALA [facility] [id number] [facility] 2023-01-19 00:00:00 2023-01-19 00:00:00 Outpatient GC_GCBZW_Ka diyala_S PRIV PRIV [id number] [facility] 2023-01-18 00:00:00 2023-01-18 00:00:00 Outpatient GC_GCBZW_Ka diyala_S PRIV PRIV [id number] [facility] 2023-01-18 00:00:00 2023-01-18 00:00:00 Telephone Estevan Adams [facility] APPRENTICE [facility] MATERNAL & CHILD [facility] 1.2.840.114 350.1.13.10 4.2.7.2.686 [id number] [facility] 2023-01-14 14:00:00 2023-01-14 14:00:00 Outpatient R JUDE S, OMKAR JUDE S, OMKAR [facility] [id number] [facility] 2022-12-04 00:00:00 2022-12-04 00:00:00 Telephone Jessika Manrique [facility] OFFICE [facility] 1..840.114 350.1.13.10 4.2.7.2.686 [id number] [facility] 2022-12-02 19:00:00 2022-12-02 19:35:03 Outpatient R JESSIKA MANRIQUE [facility] [id number] [facility] 2022-12-02 19:00:00 2022-12-02 19:20:00 Urgent Care Jessika Manrique, Attending [facility] MEDICAL OFFICE [facility] 1..840.114 350.1.13.10 4.2.7.2.686 [id number] [facility] 2022-10-04 00:00:00 2022-10-04 00:00:00 Telephone Jennifer Puri [facility] APPRENTICE [facility] MATERNAL & CHILD [facility] [[email or web address] 1..840.114 350.1.13.10 4.2.7.2.686 [id number] 107 [id number] [facility] 2022-10-02 13:30:00 2022-10-02 14:31:55 Outpatient R JENNIFER PURI [facility] [id number] [facility] 2022-10-02 13:30:00 2022-10-02 14:31:55 Office Visit Jennifer Puri [facility] APPRENTICE [facility] MATERNAL & CHILD [facility] [[email or web address]] 1..840.114 350.1.13.10 4.2.7.2.686 [id number] [facility] 2022-10-02 00:00:00 2022-10-02 00:00:00 Orders Only Doctor Unassigned, [place] [facility] 1.2.840.114 350.1.13.10 4.2.7.2.686 [id number] [facility] 2022-07-04 13:15:00 2022-07-04 13:15:00 Outpatient SIRIA MAGANA [facility] [id number] [facility] 2022-07-04 13:15:00 2022-07-04 13:15:00 Outpatient Divya RAMESHESIRIA [facility] [id number] [facility] 2022-07-04 13:00:00 2022-07-04 13:00:00 Outpatient SIRIA MAGANA [facility] [id number] [facility] 2022-04-30 10:00:00 2022-04-30 10:30:00 Office Visit Estevan Adams [facility] APPRENTICE [facility] MATERNAL & CHILD HEALTH [facility] 1.2.840.114 350.1.13.10 4.2.7.2.686 [id number] 107 [id number] [facility] 2022-04-30 10:00:00 2022-04-30 10:00:00 Outpatient R ESTEVAN ADAMS [facility] [id number] [facility] 2022-04-30 00:00:00 2022-04-30 00:00:00 Orders Only Doctor Unassigned, [place] [facility] 1.2.840.114 350.1.13.10 4.2.7.2.686 [id number] [facility] 2022-04-19 09:30:00 2022-04-19 10:05:06 Outpatient R ESTEVAN ADAMS [facility] [id number] [facility] 2022-04-19 09:30:00 2022-04-19 10:05:06 Office Visit Estevan Adams [facility] APPRENTICE [facility] MATERNAL & CHILD [facility] [[email or web address]] 1.2.840.114 350.1.13.10 4.2.7.2.686 [id number] [facility] 2022-04-19 00:00:00 2022-04-19 00:00:00 Letter (Out) Estevan Adams [facility] APPRENTICE [facility] & CHILD [facility] [[email or web address]] 1.2.840.114 350.1.13.10 4.2.7.2.686 [id number] 107 [id number] [facility] 2022-03-07 09:45:00 2022-03-07 09:45:00 Outpatient SIRIA MAGANA [facility] [id number] [facility] 2022-03-03 09:22:00 2022-03-03 12:44:00 Emergency X TIANA ANTONIO [facility] ERT [id number] [facility] 2022-03-03 09:22:00 2022-03-03 12:44:00 Emergency Tiana Antonio E [facility] 1.840.114 350.1.13.10 4.2.7.2.686 [id number] [facility] 2022-02-18 00:00:00 2022-02-18 00:00:00 Refill Estevan Adams [facility] [[email or web address]] 1.2.840.114 350.1.13.10 4.2.7.2.686 [id number] [facility] 2022-02-14 13:30:00 2022-02-14 14:35:37 [facility] [[email or web address]] 1.2.840.114 350.1.13.10 4.2.7.2.686 [id number] 107 [id number] [facility] 2022-02-14 14:30:00 2022-02-14 14:30:00 Outpatient R NATASHAJENNIFER ROMERO [facility] [id number] [facility] 2022-02-14 13:30:00 2022-02-14 13:30:00 Outpatient R NATASHAROBIN ROMERONDA [facility] [id number] [facility] 2022-02-14 00:00:00 2022-02-14 00:00:00 Orders Only Doctor Unassigned, [place] [facility] 1.84.114 350.1.13.10 4.2.7.2.686 [id number] [facility] 2022-02-14 00:00:00 2022-02-14 00:00:00 Telephone Siria Anderson [facility] APPRENTICE [facility] & CHILD [facility] [[email or web address]] 1.84.114 350.1.13.10 4.2.7.2.686 [id number] [facility] 2022-02-06 00:00:00 2022-02-06 00:00:00 Telephone Estevan Adams [facility] APPRENTICE [facility] & CHILD [facility] [[email or web address]] 1.84.114 350.1.13.10 4.2.7.2.686 [id number] [facility] 2022-01-24 17:20:00 2022-01-24 17:28:54 Outpatient JESSIKA MCGUIRE [facility] [id number] [facility] 2022-01-24 17:20:00 2022-01-24 17:28:54 Urgent Care Jessika Manrique Unknown, [facility] 1.84.114 350.1.13.10 4.2.7.2.686 [id number] [facility] 2022-01-01 00:00:00 2022-01-01 00:00:00 Refill Estevan Adams [facility] APPRENTICE [facility] & CHILD [facility] [[email or web address]] 1.840.114 350.1.13.10 4.2.7.2.686 [id number] 107 [id number] [facility] 2022-01-01 00:00:00 2022-01-01 00:00:00 Telephone Estevan Adams [facility] APPRENTICE [facility]EP [facility] CHILD [facility] [[email or web address]] 1.840.114 350.1.13.10 4.2.7.2.686 [id number] [facility] 2021-12-29 00:00:00 2021-12-29 00:00:00 Refill Estevan Adams [facility] APPRENTICE [facility] CHILD [facility] [[email or web address]] 1.840.114 350.1.13.10 4.2.7.2.686 [id number] 107 [id number] [facility] 2021-12-06 08:15:00 2021-12-06 08:54:24 Office Visit Estevan Adams [facility] APPRENTICE [facility] CHILD [facility] [[email or web address]] 1.840.114 350.1.13.10 4.2.7.2.686 [id number] [facility] 2021-12-06 08:15:00 2021-12-06 08:54:24 Outpatient R ESTEVAN ADAMS [facility] [id number] [facility] 2021-12-06 08:15:00 2021-12-06 08:15:00 Outpatient R ESTEVAN ADAMS [facility] [id number] [facility] 2021-11-22 15:15:00 2021-11-22 15:15:00 Outpatient R ESTEVAN ADAMS [facility] [id number] [facility] 2021-11-21 00:00:00 2021-11-21 00:00:00 Telephone Siria Anderson [facility] APPRENTICE [facility] & CHILD [facility] [[email or web address]] 1.2.840.114 350.1.13.10 4.2.7.2.686 [id number] 107 [id number] [facility] 2021-11-20 00:00:00 2021-11-20 00:00:00 Telephone Anette Andersonmanuel Stokes [facility] APPRENTICE [facility] & CHILD [facility] [[email or web address]] 1.2.840.114 350.1.13.10 4.2.7.2.686 [id number] [facility] 2021-09-03 00:00:00 2021-09-03 00:00:00 Refill Blake Andersonrenard Stokes [facility] APPRENTICE [facility]EP [facility] CHILD [facility] [[email or web address]] 1.2.840.114 350.1.13.10 4.2.7.2.686 [id number] 107 [id number] [facility] 2021-07-04 12:45:00 2021-07-04 13:31:36 Office Visit Luda Andersonkali Stokes [facility] APPRENTICE [facility] & CHILD [facility] [[email or web address]] 1.2.840.114 350.1.13.10 4.2.7.2.686 [id number] [facility] 2021-07-04 12:45:00 2021-07-04 13:31:36 Outpatient Divya RAMESHESIRIA [facility] [id number] [facility] 2021-07-04 12:45:00 2021-07-04 12:45:00 Outpatient R ANDERSON, SIRIA [facility] [id number] [facility] 2021-07-04 00:00:00 2021-07-04 00:00:[address] [facility] 1.2.840.114 350.1.13.10 4.2.7.2.686 [id number] [facility] 2021-07-03 18:20:00 2021-07-03 18:53:48 Outpatient JESSIKA MCGUIRE [facility] [id number] [facility] 2021-07-03 18:20:00 2021-07-03 18:53:48 Urgent Care Jessika Manrique [facility] 1..840.114 350.1.13.10 4.2.7.2.686 [id number] [facility] 2021-07-03 18:20:00 2021-07-03 18:53:48 Outpatient R JESSIKA MANRIQUE [facility] [id number] [facility] 2021-07-03 09:30:00 2021-07-03 09:30:00 Outpatient EASTON RIOJAS [id number] [facility] 2021-07-03 08:15:00 2021-07-03 08:15:00 Outpatient EASTON RIOJAS [id number] [facility] 2021-07-03 00:00:00 2021-07-03 00:00:00 Patient Secure Msg Siria Anderson [facility] APPRENTICE [facility] & CHILD [facility] [[email or web address]] ..840.114 350.1.13.10 4.2.7.2.686 [id number] 107 [id number] [facility] 2021-06-21 13:00:00 2021-06-21 14:53:50 Outpatient R SIRIA ANDERSON [facility] [id number] [facility] 2021-06-21 13:00:00 2021-06-21 14:53:50 Office Visit Siria Anderson [facility] APPRENTICE [facility] & CHILD [facility] [[email or web address]] ..840.114 350.1.13.10 4.2.7.2.686 [id number] 107 [id number] [facility] 2021-06-21 13:00:00 2021-06-21 14:53:50 Outpatient R SIRIA ANDERSON [facility] [id number] [facility] 2021-05-31 08:00:00 2021-05-31 09:04:36 Outpatient R SIRIA ANDERSON [facility] [id number] [facility] 2021-05-31 08:00:00 2021-05-31 09:04:36 Routine Visit AndersonSiria [facility] APPRENTICE [facility]EP [facility] CHILD [facility] [[email or web address]] 1.2.840.114 350.1.13.10 4.2.7.2.686 [id number] 107 [id number] [facility] 2021-05-29 00:00:00 2021-05-29 00:00:00 Patient Secure [facility] CHILD [facility] [[email or web address]] 1..840.114 350.1.13.10 4.2.7.2.686 [id number] 107 [id number] [facility] 2021-05-19 00:00:00 2021-05-19 00:00:00 Telephone Estevan Adams [facility] APPRENTICE [facility]EP [facility] CHILD [facility] [[email or web address]] 1..840.114 350.1.13.10 4.2.7.2.686 [id number] 107 [id number] [facility] 2021-05-17 13:00:00 2021-05-17 13:00:00 Nurse Visit Nurse, Naun Lima Exp Cprit Obgyn Siria Anderson [facility] APPRENTICE [facility]EP [facility] CHILD [facility] [[email or web address]] 1..840.114 350.1.13.10 4.2.7.2.686 [id number] 107 [id number] [facility] 2021-05-17 13:00:00 2021-05-17 08:46:02 Outpatient R SIRIA ANDERSON [facility] [id number] [facility] 2021-05-17 08:00:00 2021-05-17 08:45:55 Nurse Visit Visit, Naun-Rmchdaren Nurse Siria Anderson [facility] APPRENTICE [facility] TH[facility]EP [facility] CHILD [facility] [[email or web address]] 1.2.840.114 350.1.13.10 4.2.7.2.686 [id number] 107 [id number] [facility] 2021-05-09 17:42:00 2021-05-12 16:52:00 Inpatient P JODEE ALMAZAN [facility] REZA [id number] [facility] 2021-05-09 17:42:00 2021-05-12 16:52:00 Hospital Encounter Keyshawn Almazanio Daniela [facility] 1.2.840.114 350.1.13.10 4.2.7.2.686 [id number] [facility] 2021-05-10 17:00:00 2021-05-10 18:47:00 Surgery Zbigniew Fernandez [facility] 1.2.840.114 350.1.13.10 4.2.7.2.686 [id number] [facility] 2021-05-10 09:54:00 2021-05-10 18:34:00 Anesthesia Event Glen Mcgraw Axel [facility] 1.2.840.114 350.1.13.10 4.2.7.2.686 [id number] [facility] 2021-05-09 13:15:00 2021-05-09 14:00:22 Outpatient R SIRIA ANDERSON [facility] [id number] [facility] 2021-05-09 13:15:00 2021-05-09 14:00:22 Routine Visit Siria Anderson [facility] APPRENTICE [facility]EP [facility] MATERNAL & CHILD [facility] 1.2.840.114 350.1.13.10 4.2.7.2.686 [id number] 107 [id number] [facility] 2021-05-02 15:30:00 2021-05-02 15:58:07 Outpatient R SIRIA ANDERSON [facility] [id number] [facility] 2021-05-02 15:30:00 2021-05-02 15:58:07 Routine Visit Anette Andersonmanuel Divya [facility] APPRENTICE [facility] & CHILD [facility] [[email or web address]] 1.2840.114 350.1.13.10 4.2.7.2.686 [id number] [facility] 2021-05-02 00:00:00 2021-05-02 00:00:00 Abstract Anette Andersonmanuel Divya [facility] APPRENTICE 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 Visit Ultrasound, Katelyn Whiting [facility] APPRENTICE [facility] TH[facility] STEP [facility] CHILD [facility] [[email or web address]] 1.840.114 350.1.13.10 4.2.7.2.686 [id number] [facility] 2021-04-28 09:30:00 2021-04-28 09:30:00 Outpatient P [facility] [id number] [facility] 2021-04-28 09:30:00 2021-04-28 09:30:00 Outpatient P [facility] [id number] [facility] 2021-04-28 09:30:00 2021-04-28 09:30:00 Outpatient P KATELYN CRUZ SHANNON [facility] [id number] [facility] 2021-04-25 15:30:00 2021-04-25 16:19:38 Outpatient R ANDERSON, SIRIA [facility] [id number] [facility] 2021-04-25 15:30:00 2021-04-25 16:19:38 Routine Visit Luda Andersonkali Stokes [facility] APPRENTICE [facility]EP [facility] CHILD [facility] [[email or web address]] 1.0.114 350.1.13.10 4.2.7.2.686 [id number] 107 [id number] [facility] 2021-04-25 15:30:00 2021-04-25 15:30:00 Outpatient R ANDERSON, SIRIA [facility] [id number] [facility] 2021-04-24 15:30:00 2021-04-24 15:30:00 Outpatient P [facility] [id number] [facility] 2021-04-21 00:00:00 2021-04-21 00:00:00 Telephone Siria Anderson [facility] APPRENTICE [facility] TH[facility]EP [facility] MATERNAL & CHILD [facility] [[email or web address]] 1..840.114 350.1.13.10 4.2.7.2.686 [id number] 107 [id number] [facility] 2021-04-19 13:15:00 2021-04-19 13:15:00 Outpatient Divya SIRIA ANDERSON [facility] [id number] [facility] 2021-04-19 13:15:00 2021-04-19 13:15:00 Shuttle Veneering Supervisor Visit Lab, Ang-Rmchp AndersonSiria [facility] APPRENTICE [facility]EP [facility] MATERNAL & CHILD [facility] [[email or web address]] ..840.114 350.1.13.10 4.2.7.2.686 [id number] 107 [id number] [facility] 2021-04-19 13:00:00 2021-04-19 13:00:00 Outpatient P [facility] [id number] [facility] 2021-04-19 00:00:00 2021-04-19 00:00:00 Telephone AndersonSiria [facility] APPRENTICE [facility] CHILD [facility] [[email or web address]] ..840.114 350.1.13.10 4.2.7.2.686 [id number] 107 [id number] [facility] 2021-04-18 15:30:00 2021-04-18 16:11:31 Outpatient R SIRIA ANDERSON [facility] [id number] [facility] 2021-04-18 15:30:00 2021-04-18 16:11:31 Routine Visit Siria Anderson Divya [facility] APPRENTICE [facility] CHILD [facility] [[email or web address]] 1..840.114 350.1.13.10 4.2.7.2.686 [id number] [facility] 2021-04-18 15:30:00 2021-04-18 16:11:31 Outpatient R SIRIA ANDERSON [facility] [id number] [facility] 2021-04-18 15:30:00 2021-04-18 15:30:00 Outpatient R SIRIA ANDERSON [facility] [id number] [facility] 2021-04-11 13:00:00 2021-04-11 14:15:13 Outpatient R SIRIA ANDERSON [facility] [id number] [facility] 2021-04-11 13:00:00 2021-04-11 14:15:13 Outpatient R SIRIA ANDERSON [facility] [id number] [facility] 2021-04-11 13:00:00 2021-04-11 14:15:13 Routine Visit Anette Andersonmanuel Stokes [facility] APPRENTICE [facility] & CHILD [facility] [[email or web address]] 1..840.114 350.1.13.10 4.2.7.2.686 [id number] [facility] 2021-04-11 13:00:00 2021-04-11 13:00:00 Outpatient SIRIA MAGANA [facility] [id number] [facility] 2021-03-29 00:00:00 2021-03-29 00:00:00 Telephone Anette Andersonmanuel Stokes [facility] APPRENTICE [facility] & CHILD [facility] [[email or web address]] 1..840.114 350.1.13.10 4.2.7.2.686 [id number] [facility] 2021-03-22 14:30:00 2021-03-22 14:51:40 Outpatient R ANDERSONSIRIA [facility] [id number] [facility] 2021-03-22 14:30:00 2021-03-22 14:51:40 Routine Visit Siria Anderson Antonio F [facility] APPRENTICE [facility] & CHILD [facility] [[email or web address]] [id number] 350.1.13.10 4.2.7.2.686 [id number] [facility] 2021-03-22 14:30:00 2021-03-22 14:30:00 Outpatient R ANEDRSON, [facility] [id number] [facility] 2021-03-22 14:00:00 2021-03-22 14:30:00 Shuttle Veneering Supervisor Visit Ultrasound, [facility] Siria Anderson Antonio [facility] APPRENTICE [facility] & CHILD [facility] [[email or web address]] [id number] 350.1.13.10 4.2.7.2.686 [id number] [facility] 2021-03-22 00:00:00 2021-03-22 00:00:00 Abstract Siria Anderson [facility] APPRENTICE [facility] CHILD [facility] [[email or web address]] [id number] 350.1.13.10 4.2.7.2.686 [id number] [facility] 2021-03-15 00:00:00 2021-03-15 00:00:00 Patient Secure Msg Siria Anderson [facility] APPRENTICE [facility] [[email or web address]] [id number] 350.1.13.10 4.2.7.2.686 [id number] [facility] 2021-03-14 00:00:00 2021-03-14 00:00:00 Telephone Siria Anderson [facility] APPRENTICE [facility] CHILD [facility] [[email or web address]] [id number] 350.1.13.10 4.2.7.2.686 [id number] [facility] 2021-03-13 00:00:00 2021-03-13 00:00:00 Aaron Dykes [facility] APPRENTICE [facility] THIRD STEP [facility]ILD [facility] [id number] 350.1.13.10 4.2.7.2.686 [id number] [facility] 2021-03-13 00:00:00 2021-03-13 00:00:00 Siria Lechuga [facility] APPRENTICE [facility] CHILD [facility] [[email or web address]] [id number] 350.1.13.10 4.2.7.2.686 [id number] [facility] 2021-03-10 00:00:00 2021-03-10 00:00:00 Siria Lechuga [facility] APPRENTICE [facility] CHILD [facility] [[email or web address]] [id number] 350.1.13.10 4.2.7.2.686 [id number] [facility] 2021-03-10 00:00:00 2021-03-10 00:00:00 Aaron Dykes [facility] MATERNAL & [facility] 1.2.840.114 350.1.13.10 4.2.7.2.686 [id number] [facility] 2021-03-09 15:45:00 2021-03-09 16:18:23 Outpatient R SIRIA ANDERSON [facility] [id number] [facility] 2021-03-09 15:45:00 2021-03-09 16:18:23 Routine Visit Siria Anderson [facility] CHILD [facility] [[email or web address]] 1.2.840.114 350.1.13.10 4.2.7.2.686 [id number] [facility] 2021-03-09 00:00:00 2021-03-09 00:00:00 Aaron Dykes [facility] MATERNAL & CHILD [facility] 1.2.840.114 350.1.13.10 4.2.7.2.686 [id number] [facility] 2021-03-09 00:00:00 2021-03-09 00:00:00 Siria Lechuga [facility]ENTICE [facility] CHILD [facility] [[email or web address]] .840.114 350.1.13.10 4.2.7.2.686 [id number] [facility] 2021-03-08 15:45:00 2021-03-08 15:45:00 Outpatient SIRIA MAGANA [facility] [id number] [facility] 2021-02-22 10:00:00 2021-02-22 11:57:26 Outpatient AARON BACK [facility] [id number] [facility] 2021-02-22 09:59:09 2021-02-22 11:57:26 Routine Visit Provider, Aaron Barlow [facility]ENT[facility] [[email or web address]] .840.114 350.1.13.10 4.2.7.2.686 [id number] [facility] 2021-02-13 10:52:00 2021-02-13 11:22:00 Shuttle Veneering Supervisor Visit Ultrasound, Silvana Ruff [facility]ENT[facility]ILD [facility] [[email or web address]] 1..840.114 350.1.13.10 4.2.7.2.686 [id number] [facility] 2021-02-13 10:45:00 2021-02-13 10:45:00 Outpatient SILVANA WESLEY SANGEETA [facility] [id number] [facility] 2021-02-13 00:00:00 2021-02-13 00:00:00 Case Management Bo Rivera [facility]PRENTICE [facility] [[email or web address]] 1.0.114 350.1.13.10 4.2.7.2.686 [id number] [facility] 2021-02-03 00:00:00 2021-02-03 00:00:00 Telephone Aaron Alicea [facility] APPRENTICE [facility] 1.0.114 350.1.13.10 4.2.7.2.686 [id number] [facility] 2021-02-01 10:45:00 2021-02-01 11:09:09 Outpatient R BO RIVERA [facility] [id number] [facility] 2021-02-01 10:04:55 2021-02-01 11:09:09 Routine Visit Provider, Naun-Rmchp Bo Jorgensen [facility] APPRENTICE [facility] CHILD [facility] [[email or web address]] 1..114 350.1.13.10 4.2.7.2.686 [id number] [facility] 2021-01-31 00:00:00 2021-01-31 00:00:00 Nguyễn Hess [facility] 1..114 350.1.13.10 4.2.7.2.686 [id number] [facility] 2021-01-30 00:00:00 2021-01-30 00:00:00 Telephone Aaron Alicea [facility] APPRENTICE [facility] [[email or web address]] 1.840.114 350.1.13.10 4.2.7.2.686 [id number] [facility] 2021-01-29 00:00:00 2021-01-29 00:00:00 Refill Siria Anderson [facility] APPRENTICE [facility] [[email or web address]] 1.2.840.114 350.1.13.10 4.2.7.2.686 [id number] [facility] 2021-01-29 00:00:00 2021-01-29 00:00:00 Refill Nguyễn Adhikari [facility] 1.840.114 350.1.13.10 4.2.7.2.686 [id number] [facility] 2021-01-19 14:40:00 2021-01-19 15:06:44 Outpatient R CASEY [facility] [id number] [facility] 2021-01-19 14:22:57 2021-01-19 15:06:44 Urgent Care Nguyễn Adhikari [facility] 1..840.114 350.1.13.10 4.2.7.2.686 [id number] [facility] 2021-01-04 00:00:00 2021-01-04 00:00:00 Telephone Siria Anderson [facility] APPRENTICE [facility] [[email or web address]] 1.2.840.114 350.1.13.10 4.2.7.2.686 [id number] [facility] 2021-01-03 00:00:00 2021-01-03 00:00:00 Telephone Siria Anderson [facility] APPRENTICE [facility] [[email or web address]] 1.2.840.114 350.1.13.10 4.2.7.2.686 [id number] [facility] 2021-01-03 00:00:00 2021-01-03 00:00:00 Telephone Siria Anderson [facility] APPRENTICE [facility] MATERNAL & CHILD [facility] 1.2.840.114 350.1.13.10 4.2.7.2.686 [id number] [facility] 2021-01-02 10:45:39 2021-01-02 11:10:03 Routine Visit Provider, Aaron Barlow [facility] APPRENTICE [facility] MATERNAL & CHILD [facility] 1.2.840.114 350.1.13.10 4.2.7.2.686 [id number] [facility] 2021-01-02 10:45:00 2021-01-02 10:45:00 Outpatient R [facility] [id number] [facility] 2020-12-21 10:52:25 2020-12-21 11:26:21 Office Visit Palmira Phillips [facility] 1..840.114 350.1.13.10 4.2.7.2.686 [id number] [facility] 2020-12-21 10:30:00 2020-12-21 10:30:00 Outpatient P [facility] [id number] [facility] 2020-12-19 08:20:30 2020-12-19 09:35:30 Shuttle Veneering Supervisor Visit Ultrasound, Gianni Virk [facility]ENT[facility] MATERNAL & CHILD [facility] 1.2.840.114 350.1.13.10 4.2.7.2.686 [id number] [facility] 2020-12-19 08:00:00 2020-12-19 08:00:00 Outpatient P [facility] [id number] [facility] 2020-12-19 00:00:00 2020-12-19 00:00:00 Abstract Siria Anderson [facility] APPRENTICE [facility] MATERNAL & CHILD [facility] [[email or web address]] 1.2.840.114 350.1.13.10 4.2.7.2.686 [id number] [facility] 2020-12-07 00:00:00 2020-12-07 00:00:00 Telephone Siria Anderson [facility] APPRENTICE [facility] [[email or web address]] 1.2.840.114 350.1.13.10 4.2.7.2.686 [id number] [facility] 2020-12-05 10:15:59 2020-12-05 10:54:56 Routine Visit Siria Anderson [facility] APPRENTICE [facility] [[email or web address]] 1.2.840.114 350.1.13.10 4.2.7.2.686 [id number] [facility] 2020-12-05 10:15:59 2020-12-05 10:54:56 Routine Visit Siria Anderson [facility] APPRENTICE [facility] [[email or web address]] 1.2.840.114 350.1.13.10 4.2.7.2.686 [id number] [facility] 2020-12-05 10:15:00 2020-12-05 10:15:00 Outpatient R LUDA ANDERSONKALI [facility] [id number] [facility] 2020-11-07 08:42:18 2020-11-07 09:41:48 Routine Visit Anette Andersonmanuel [facility] APPRENTICE [facility] [[email or web address]] 1.2.840.114 350.1.13.10 4.2.7.2.686 [id number] [facility] 2020-11-07 08:45:00 2020-11-07 08:45:00 Outpatient R ANDERSON, SIRIA [facility] [id number] [facility] 2020-11-01 00:00:00 2020-11-01 00:00:00 Telephone Siria Anderson [facility] APPRENTICE [facility] MATERNAL & CHILD [facility] [[email or web address]] 1.2.840.114 350.1.13.10 4.2.7.2.686 [id number] [facility] 2020-10-27 00:00:00 2020-10-27 00:00:00 Patient Secure Msg Doctor Unassigned, [place] [facility] APPRENTICE [facility] [[email or web address]] 1.2.840.114 350.1.13.10 4.2.7.2.686 [id number] [facility] 2020-10-27 00:00:00 2020-10-27 00:00:00 Telephone Siria Anderson [facility] APPRENTICE [facility] CHILD [facility] [[email or web address]] 1.2.840.114 350.1.13.10 4.2.7.2.686 [id number] [facility] 2020-10-26 00:00:00 2020-10-26 00:00:00 Telephone Siria Anderson [facility] APPRENTICE [facility] [[email or web address]] 1.2.840.114 350.1.13.10 4.2.7.2.686 [id number] [facility] 2020-10-19 13:59:38 2020-10-19 14:29:38 Shuttle Veneering Supervisor Visit Ultrasound, Cristin Jones [facility] APPRENTICE [facility]EP [facility] MATERNAL & CHILD [facility] [[email or web address]] 1.2.840.114 350.1.13.10 4.2.7.2.686 [id number] [facility] 2020-10-19 14:00:00 2020-10-19 14:00:00 Outpatient P [facility] [id number] [facility] 2020-10-19 00:00:00 2020-10-19 00:00:00 Abstract Siria Anderson [facility] APPRENTICE [facility] MATERNAL & CHILD [facility] [[email or web address]] 1.114 350.1.13.10 4.2.7.2.686 [id number] [facility] 2020-10-10 08:57:06 2020-10-10 09:57:15 Initial Visit Siria Anderson [facility] APPRENTICE [facility] [[email or web address]] 1.114 350.1.13.10 4.2.7.2.686 [id number] [facility] 2020-10-10 08:30:00 2020-10-10 08:30:00 Outpatient R [facility] [id number] [facility] 2020-10-10 00:00:00 2020-10-10 00:00:00 Orders Only Doctor Unassigned, [place] [facility] 1.114 350.1.13.10 4.2.7.2.686 [id number] [facility] 2020-06-24 16:00:00 2020-06-24 16:00:00 Outpatient R JULISSA MICHELE [facility] [id number] [facility] 2020-06-24 11:27:53 2020-06-24 11:49:24 Office Visit Julissa Michele [facility] ..114 350.1.13.10 4.2.7.2.686 [id number] [facility] 2020-06-24 11:00:00 2020-06-24 11:00:00 Outpatient R JULISSA MICHELE [facility] [id number] [facility] 2020-06-14 00:00:00 2020-06-14 00:00:00 Patient Outreach Reji Cruz [facility] 1.114 350.1.13.10 4.2.7.2.686 [id number] [facility] 2020-06-08 19:38:00 2020-06-09 12:50:00 Emergency Ann, Emma [place], Zoe Michele, Julissa Nunez [facility] 1.114 350.1.13.10 4.2.7.2.686 [id number] [facility] 2020-06-08 18:59:31 2020-06-08 19:19:31 Urgent Care Provider, [facility] Saadia Lovett [facility] 1.114 350.1.13.10 4.2.7.2.686 [id number] [facility] 2020-06-08 18:40:00 2020-06-08 18:40:00 Outpatient SAADIA RAZO [facility] [id number] [facility] 2020-05-24 13:16:03 2020-05-24 14:05:26 Office Visit OmarNia narayantany [facility] 1.114 350.1.13.10 4.2.7.2.686 [id number] [facility] 2020-05-24 13:00:00 2020-05-24 13:00:00 Outpatient R NIA HANKINSTANY [facility] [id number] [facility] 2020-05-19 13:00:00 2020-05-19 13:00:00 Outpatient YOVANY ODONNELL [facility] [id number] [facility] 2020-05-19 00:00:00 2020-05-19 00:00:00 Orders Only Doctor Unassigned, [place] [facility] 1.114 350.1.13.10 4.2.7.2.686 [id number] [facility] 2020-03-28 19:14:32 2020-03-28 19:51:01 Urgent Care [facility] 1..840.114 350.1.13.10 4.2.7.2.686 [id number] [facility] 2020-03-28 19:20:00 2020-03-28 19:20:00 Outpatient R [facility] [id number] [facility] 2020-03-28 00:00:00 2020-03-28 00:00:00 Letter (Out) Doctor Unassigned, [place] [facility] 1..840.114 350.1.13.10 4.2.7.2.686 [id number] [facility] 2020-01-15 08:15:00 2020-01-15 08:15:00 Outpatient R JAIME CLEMENT [facility] [id number] [facility] 2019-03-12 14:26:14 2019-03-12 23:59:00 Outpatient JAIME CLEMENT [facility] [id number] [facility] Results Test Description Test Time Test Comments Results Result Co mments Source [facility] ONLY - SYPHILIS [id number] 16:24:15* Test Item Value Reference Range Interpretation Comme nts Syphilis IgG/IgM (test code = 81972-4) Non-reactive Non-reactive VASHTI (test code = VASHTI) Non-reactive - No serologic evidence of T. pallidum infection. Cannot exclude incubating or early syphilis. Submit a second specimen in 2-4 weeks if syphilis is clinically suspected. Equivocal - Further testing to follow. Reactive - Further testing to follow. Lab Interpretation (test code = 00251-0) Normal [facility] ONLY - [place] [id number] 16:24:15* Test Item Value Reference Range Interpretation Comme nts Syphilis IgG/IgM (test code = 93522-7) Non-reactive Non-reactive VASHTI (test code = VASHTI) Non-reactive - No serologic evidence of T. pallidum infection. Cannot exclude incubating or early syphilis. Submit a second specimen in 2-4 weeks if syphilis is clinically suspected. Equivocal - Further testing to follow. Reactive - Further testing to follow. Lab Interpretation (test code = 71538-7) Normal [facility] 07:09:19* Test Item Value Reference Range Interpretation Comme nts HGB A1C (test code = 4548-4) 5.3 % 4.0-5.7 VASHTI (test code = VASHTI) Reference RangesNormal: <5.7%Prediabetes: 5.7 - 6.4%Diabetes: > 6.5% Lab Interpretation (test code = 43039-4) Normal [facility]A1C)2022-10-03 07:09:19* Test Item Value Reference Range Interpretation Comme nts HGB A1C (test code = 4548-4) 5.3 % 4.0-5.7 VASHTI (test code = VASHTI) Reference RangesNormal: <5.7%Prediabetes: 5.7 - 6.4%Diabetes: > 6.5% Lab Interpretation (test code = 33811-2) Normal [facility] AG-AB WITH [id number] 06:09:39* Test Item Value Reference Range Interpretation Comme nts HIV Semi-quantitative (test code = 12169-1) 0.09 Negative VASHTI (test code = VASHTI) Non-reactive for HIV-1 antigen and HIV-1/HIV-2 antibodies. ?No laboratory evidence of HIV infection. ?Repeat in 2-4 weeks if acute HIV infection is suspected. [facility] [id number] 06:09:39* Test Item Value Reference Range Interpretation Comme nts HCV Ab (test code = 62170-0) Negative HCV Semi-Quantitative (test code = 14644-7) 0.03 [facility] 1/2 AG-AB WITH [id number] 06:09:39* Test Item Value Reference Range Interpretation Comme nts HIV Semi-quantitative (test code = 42403-3) 0.09 Negative VASHTI (test code = VASHTI) Non-reactive for HIV-1 antigen and HIV-1/HIV-2 antibodies. ?No laboratory evidence of HIV infection. ?Repeat in 2-4 weeks if acute HIV infection is suspected. [facility] [id number] 06:09:39* Test Item Value Reference Range Interpretation Comme nts HCV Ab (test code = 14243-6) Negative HCV Semi-Quantitative (test code = 11606-4) 0.03 [facility] WITH [id number] 05:35:17* Test Item Value Reference Range Interpretation Comme nts WBC (test code = 6690-2) 9.97 See_Comment [Automated messa ge] The system which generated this result transmitted reference range: 4.30 - 11.10 10*3/?L. The reference range was not used to interpret this result as normal/abnormal. RBC (test code = 789-8) 5.20 See_Comment [Automated [employer] ge] The system which generated this result [...] 31.7 g/dL 31.6-35.1 RDW-SD (test code = 66830-9) 38.7 fL 39.0-49.9 L RDW-CV (test code = 788-0) 13.0 % 12.0-15.5 PLT (test code = 777-3) 442 See_Comment H [Automated messa ge] The system which generated this result transmitted reference range: 166 - 358 10*3/?L. The reference range was not used to interpret this result as normal/abnormal. MPV (test code = 75834-9) 10.9 fL 9.5-12.9 NRBC/100 WBC (test code = 4844653862) 0.0 See_Comment [Automated [employer] ssage] The system which generated this result transmitted reference range: 0.0 - 10.0 /100 WBCs. The reference range was not used to interpret this result as normal/abnormal. NRBC x10^3 (test code = 3065998796) See_Comment [Automated messa ge] The system which generated this result transmitted reference range: 10*3/?L. The reference range was not used to interpret this result as normal/abnormal. GRAN MAT (NEUT) % (test code = 770-8) 61.3 % IMM GRAN % (test code = 8344940455) 0.20 % LYMPH % (test code = 736-9) 32.8 % MONO % (test code = 5905-5) 4.5 % EOS % (test code = 713-8) 0.9 % BASO % (test code = 706-2) 0.3 % GRAN MAT x10^3(ANC) (test code = 8335650836) 6.11 10*3/uL 1.88-7.09 IMM GRAN x10^3 (test code = 3147685024) 0.00-0.06 LYMPH x10^3 (test code = 731-0) 3.27 10*3/uL 1.32-3.29 MONO x10^3 (test code = 742-7) 0.45 10*3/uL 0.33-0.92 EOS x10^3 (test code = 711-2) 0.09 10*3/uL 0.03-0.39 BASO x10^3 (test code = 704-7) 0.03 10*3/uL 0.01-0.07 Lab Interpretation (test code = 80540-3) Abnormal [facility] WITH [id number] 05:35:17* Test Item Value Reference Range Interpretation [...] 31.7 g/dL 31.6-35.1 RDW-SD (test code = 50363-9) 38.7 fL 39.0-49.9 L RDW-CV (test code = 788-0) 13.0 % 12.0-15.5 PLT (test code = 777-3) 442 See_Comment H [Automated messa ge] The system which generated this result transmitted reference range: 166 - 358 10*3/?L. The reference range was not used to interpret this result as normal/abnormal. MPV (test code = 63045-0) 10.9 fL 9.5-12.9 NRBC/100 WBC (test code = 3540443363) 0.0 See_Comment [Automated [employer] ssage] The system which generated this result transmitted reference range: 0.0 - 10.0 /100 WBCs. The reference range was not used to interpret this result as normal/abnormal. NRBC x10^3 (test code = 1690836923) See_Comment [Automated messa ge] The system which generated this result transmitted reference range: 10*3/?L. The reference range was not used to interpret this result as normal/abnormal. GRAN MAT (NEUT) % (test code = 770-8) 61.3 % IMM GRAN % (test code = 1860471736) 0.20 % LYMPH % (test code = 736-9) 32.8 % MONO % (test code = 5905-5) 4.5 % EOS % (test code = 713-8) 0.9 % BASO % (test code = 706-2) 0.3 % GRAN MAT x10^3(ANC) (test code = 9786184963) 6.11 10*3/uL 1.88-7.09 IMM GRAN x10^3 (test code = 2086536460) 0.00-0.06 LYMPH x10^3 (test code = 731-0) 3.27 10*3/uL 1.32-3.29 MONO x10^3 (test code = 742-7) 0.45 10*3/uL 0.33-0.92 EOS x10^3 (test code = 711-2) 0.09 10*3/uL 0.03-0.39 BASO x10^3 (test code = 704-7) 0.03 10*3/uL 0.01-0.07 Lab Interpretation (test code = 66046-1) Abnormal [facility] [id number] 16:35:00* Test Item Value Reference Range Interpretation Comme nts POCT PREG (test code = 1605) Negative On board controls acceptable with C Line (test code = 3574) Yes POCT PREG LOT # (test code = 3575) POCT PREG TEST DATE ( test code = 3576) [facility] [id number] 16:35:00* Test Item Value Reference Range Interpretation Comme nts POCT PREG (test code = 1605) Negative On board controls acceptable with C Line (test code = 3574) Yes POCT PREG LOT # (test code = 3575) POCT PREG TEST DATE ( test code = 3576) [facility] [id number] 15:41:00* Test Item Value Reference Range Interpretation Comme nts POCT PREG (test code = 1605) Negative On board controls acceptable with C Line (test code = 3574) Yes POCT PREG LOT # (test code = 3575) POCT PREG TEST DATE ( test code = 3576) [facility] [id number] 15:41:00* Test Item Value Reference Range Interpretation Comme nts POCT PREG (test code = 1605) Negative On board controls acceptable with C Line (test code = 3574) Yes POCT PREG LOT # (test code = 3575) POCT PREG TEST DATE ( test code = 3576) [facility] [id number] 15:41:00* Test Item Value Reference Range Interpretation Comme nts POCT PREG (test code = 1605) Negative On board controls acceptable with C Line (test code = 3574) Yes POCT PREG LOT # (test code = 3575) POCT PREG TEST DATE ( test code = 3576) [id number]:41:00* Test Item Value Reference Range Interpretation Comme nts POCT PREG (test code = 1605) Negative On board controls acceptable with C Line (test code = 3574) Yes POCT PREG LOT # (test code = 3575) POCT PREG TEST DATE ( test code = 3576) [facility] [id number] 15:41:00* Test Item Value Reference Range Interpretation Comme nts POCT PREG (test code = 1605) Negative On board controls acceptable with C Line (test code = 3574) Yes POCT PREG LOT # (test code = 3575) POCT PREG TEST DATE ( test code = 3576) [facility] 16:42:23 ALCOHOL<10mg/dL03/03/2022 10:42 AM [facility]<10 [id number] Toxic>100 Depression of LAB HEAD>400 Fatalities ReportedUnFormerly [facility] (NA, K, CL, CO2, GLUCOSE, BUN, CREATININE, CA)2022-03-03 16:23:10* Test Item Value Reference Range Interpretation Comme westerly hospital NA (test code = 7893425962) 138 mmol/L 135-145 K (test code = 7708808642) 3.9 mmol/L 3.5-5.0 CL (test code = 6365102207) 106 mmol/L 98-108 CO2 TOTAL (test code = 7750572703) 24 mmol/L 23-31 AGAP (test code = 5701162041) 2-16 BUN (test code = 4111883313) 11 mg/dL 7-23 GLUCOSE (test code = 4916270130) 95 mg/dL 70-110 CREATININE (test code = 5328968475) 0.62 mg/dL 0.50-1.04 CALCIUM (test code = 7469471738) 9.4 mg/dL 8.6-10.6 eGFR (test code = 5689480123) mL/min/1.73m2 VASHTI (test code = VASHTI) Association [...] or urine or abnormalities in imaging tests). [facility] WITH [id number] 16:19:13* Test Item Value Reference Range Interpretation Comme nts WBC (test code = 6690-2) See_Comment [[employer]] The system which generated this result transmitted reference range: 4.30 - 11.10 10*3/?L. The reference range was not used to interpret this result as normal/abnormal. RBC (test code = 789-8) See_Comment [[employer]] The system which generated this result transmitted [...] 32.8 g/dL 31.6-35.1 RDW-SD (test code = 40150-3) 38.5 fL 39.0-49.9 L RDW-CV (test code = 788-0) 12.9 % 12.0-15.5 PLT (test code = 777-3) See_Comment [Automated messa ge] The system which generated this result transmitted reference range: 166 - 358 10*3/?L. The reference range was not used to interpret this result as normal/abnormal. MPV (test code = 77580-1) 10.2 fL 9.5-12.9 NRBC/100 WBC (test code = 9828998595) See_Comment [Automated [employer] ssage] The system which generated this result transmitted reference range: 0.0 - 10.0 /100 WBCs. The reference range was not used to interpret this result as normal/abnormal. NRBC x10^3 (test code = 8382921341) See_Comment [Automated messa ge] The system which generated this result transmitted reference range: 10*3/?L. The reference range was not used to interpret this result as normal/abnormal. GRAN MAT (NEUT) % (test code = 770-8) 54.2 % IMM GRAN % (test code = 6773917168) 0.30 % LYMPH % (test code = 736-9) 39.1 % MONO % (test code = 5905-5) 5.1 % EOS % (test code = 713-8) 1.2 % BASO % (test code = 706-2) 0.1 % GRAN MAT x10^3(ANC) (test code = 0381025310) 3.94 10*3/uL 1.88-7.09 IMM GRAN x10^3 (test code = 7218745977) 0.00-0.06 LYMPH x10^3 (test code = 731-0) 2.84 10*3/uL 1.32-3.29 MONO x10^3 (test code = 742-7) 0.37 10*3/uL 0.33-0.92 EOS x10^3 (test code = 711-2) 0.09 10*3/uL 0.03-0.39 BASO x10^3 (test code = 704-7) 0.01-0.07 Lab Interpretation (test code = 92731-0) Abnormal [facility] [id number] 20:48:00* Test Item Value Reference Range Interpretation Comme nts POCT PREG (test code = 1605) Negative On board controls acceptable with C Line (test code = 3574) Yes POCT PREG LOT # (test code = 3575) POCT PREG TEST DATE ( test code = 3576) [facility] URINALYSIS W SPECIFIC [id number] 22:32:00* Test Item Value Reference Range Interpretation [...] development and interpretation of all internal controls [facility] URINALYSIS W SPECIFIC [id number] 22:32:00* Test Item Value Reference Range Interpretation [...] development and interpretation of all internal controls [id number]:36:00* Test Item Value Reference Range Interpretation Comme nts POCT PREG (test code = 1605) Negative On board controls acceptable with C Line (test code = 3574) Yes POCT PREG LOT # (test code = 3575) POCT PREG TEST DATE ( test code = 3576) [facility] Notes Date/Time Note Provider Source 2022-12-05 10:12:02 qZKfsYOQ4b6S+RguDStE tcnshpMxnkp8U4TzLX NdZg8Y98o3dyy8cL9YgvoLY5gp0777-07-29J3 0:12:02 Called to speak with [facility] in [place]. They state they did not ever get the prescription. Contacted the patient and she also has not received the prescription. She is requesting they be resent to [facility] in [place]. Re-ordered original prescription and sent to [facility] per patient request. 00113-9Hlihkzzgu encounter NyabPE2270-98-04F52:14:39Telephone encounter NoteTXT1.2.840.641163.1.13.104.2.7.2.7 59532|[id number] for patient naye50136-6XgjvRAQIEOWNSY[address]Galveston[place]vestonTXTX[place]5577555US FMKIQVKVYSSEAQGHBFMR9876-72-24W28:14:3 91.2.840.378142.1.72.3.15|1.2.840.1143 [id number] [facility] 2022-12-04 18:01:37 Rl4R9AEUdbzXmj+Wjep+ BKJk5uU0s2XxADy5y5 l3kxWN2C8e/+7rzZDEgNQc1wvX7265-18-61P2 8:01:37 Thao Lang is a 27 year old femaleT[facility] are wanting the prescriptions transferred. Please advise azelastine 137 mcg (0.1 %) nasal hurjsxjayoscqkirfbmr-zacctavszggfhxu-G M (BROMFED DM) 2-30-10 mg/5 mL syrupfluticasone propionate 50 mcg/actuation nasal spraymethylPREDNISolone (MEDROL, KRISTA,) 4 mg tabletsJ[facility]. [facility] [place], [place] - [address] [place] [address] & [place] [address] [address]Ezkrf: [phone] Koxjteebfznhzx signed by Nate Mcleod at 12/04/2022 6:02 PM AKB22921-2Nbwkumobr encounter RndwAU2539-38-89W72:02:30Telephone encounter NoteTXT1.2.840.646926.1.13.104.2.7.2.7 77667|[id number] for patient [id number] [address] EwcrHsrirdkcnYajantpokDRSZ4325118674LF CPXCRNAOCGVODVXRGKAA7424-79-95S92:02:3 01.2.840.900914.1.72.3.15|1.2.840.1143 [id number] Nate [facility]oKind[facility]"
--- NOTE | 2023-07-13 04:38 | EDPHYS ---
Physician Documentation [facility] Name: Thao Lang Age: 28 yrs Sex: Female : 1995 Arrival Date: 07/13/2023 Time: 04:23 Bed 20 Private MD: ED Physician Lenard Gandara HPI: 07/12 04:35 This 28 yrs old Female presents to ER via Ambulatory with complaints of Sore ec2 Throat, Fever. 04:35 Patient arrives today for evaluation of sore throat. Patient complaining of throat ec2 pain. Patient reports couple days of throat pain. Patient reports history of tonsillectomy. Patient reports no vomiting or diarrhea, but does report occasional cough.. 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 - Infectious Disease History:: Denies. - Social history:: Smoking status: Patient/guardian denies using tobacco. ROS: 04:35 Constitutional: as per hpi ec2 Exam: 04:35 Constitutional: GEN: NAD Head: atraumatic Eyes: EOMI Ears: External ears are normal. ec2 Mouth: No posterior pharyngeal erythema, no exudates. No anterior cervical lymphadenopathy. CV: regular rate LUNGS: no respiratory distress ABD: non-distended SKIN: no evidence of rashes MSK: no evidence of trauma NEURO: moves all extremities equally Vital Signs: 04:31 BP 146 / 89; Pulse 93; Resp 16; Temp 98.3; Pulse Ox 99% on R/A; Weight 99.79 kg; Pain bm8 9/10; 04:31 Pain Scale: Adult bm8 MDM: 04:27 Patient medically screened. ec2 04:35 Data reviewed: vital signs. ED course: Patient arrives today for evaluation of URI ec2 signs and symptoms. Examination remarkable well-appearing nontoxic individual is otherwise in no acute distress with a reassuring HEENT exam. Doubt strep throat given the patient's tonsillectomy history. Additionally no exudates. Accordingly will defer strep swab. Suspect viral infection causing patient's symptoms given the cough as well as sore throat. Will discharge home. Return precautions given.. Administered Medications: 04:42 Drug: Viscous Lidocaine Mucous Membrane Liquid (4 %) 10 ml Mucous Membrane once Route: bm8 Mucous Membrane; 04:45 Follow up: Response: Medication administered at discharge. bm8 04:42 Drug: predniSONE PO 20 mg PO once Route: PO; bm8 04:45 Follow up: Response: Medication administered at discharge. bm8 Disposition Summary: 07/13/23 04:37 Discharge Ordered Notes: Location: Home ec2 Condition: Stable ec2 Diagnosis - Sore Throat ec2 Followup: ec2 - With: Private Physician - When: - Reason: Re-evaluation by your physician Discharge Instructions: - Discharge Summary Sheet ec2 - Sore Throat, Fxbp-vk-Cbrh ec2 Forms: - Medication Reconciliation Form ec2 - Thank You Letter ec2 - Antibiotic Education ec2 - Prescription Opioid Use ec2 - Patient Portal Instructions ec2 - Leadership Thank You Letter ec2 Prescriptions: - Prednisone 20 mg Oral Tablet - take 1 tablet ORAL route once daily for 5 days; 5 tablet; Refills: 0, Product ec2 Selection Permitted Signatures: Lenard Gandara MD MD ec2 Prince Lopez, RN RN bm8
--- NOTE | 2023-07-13 04:38 | ER ---
Nurse's Notes [facility] Name: Thao Lang Age: 28 yrs Sex: Female : 1995 Arrival Date: 07/13/2023 Time: 04:23 Bed 20 Private MD: Diagnosis: Sore Throat Presentation: 07/12 04:31 Chief complaint: Patient states: I have had sore throat for 4 days. Coronavirus screen: bm8 At this time, the client does not indicate any symptoms associated with coronavirus-19. Ebola Screen: Patient negative for fever greater than or equal to 101.5 degrees Fahrenheit, and additional compatible Ebola Virus Disease symptoms Patient denies exposure to infectious person. Patient denies travel to an Ebola-affected area in the 21 days before illness onset. No symptoms or risks identified at this time. Initial Sepsis Screen: Does the patient meet any 2 criteria? No. Patient's initial sepsis screen is negative. Does the patient have a suspected source of infection? No. Patient's initial sepsis screen is negative. Risk Assessment: Do you want to hurt yourself or someone else? Patient reports no desire to harm self or others. Onset of symptoms was July 09, 2023. 04:31 Method Of Arrival: Ambulatory bm8 04:31 Acuity: IZABELLA 4 bm8 Triage Assessment: 04:34 General: Appears in no apparent distress. comfortable, Behavior is calm, cooperative, bm8 appropriate for age. Pain: Complains of pain in throat Pain does not radiate. Pain currently is 8 out of 10 on a pain scale. Quality of pain is described as burning. EENT: Throat is reddened bilaterally with gag reflex present, Reports sore throat for 4 days. Neuro: No deficits noted. Level of Consciousness is awake, alert, obeys commands, Oriented to person, place, time, situation, Appropriate for age. Cardiovascular: Capillary refill < 3 seconds Patient's skin is warm and dry. Respiratory: Airway is patent Respiratory effort is even, unlabored, Respiratory pattern is regular, symmetrical. GI: No deficits noted. No signs and/or symptoms were reported involving the gastrointestinal system. : No deficits noted. No signs and/or symptoms were reported regarding the genitourinary system. Derm: No deficits noted. No signs and/or symptoms reported regarding the dermatologic system. 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 - Infectious Disease History:: Denies. - Social history:: Smoking status: Patient/guardian denies using tobacco. Screenin:37 [facility] ED Fall Risk Assessment (Adult) History of falling in the last 3 months, bm8 including since admission No falls in past 3 months (0 pts) Confusion or Disorientation No (0 pts) Intoxicated or Sedated No (0 pts) Impaired Gait No (0 pts) Mobility Assist Device Used No (0 pt) Altered Elimination No (0 pt) Score/Fall Risk Level 0 - 2 = Low Risk Oriented to surroundings, Maintained a safe environment, Educated pt \T\ family on fall prevention, incl call for assistance when getting out of bed. Abuse screen: Denies threats or abuse. Nutritional screening: No deficits noted. Tuberculosis screening: No symptoms or risk factors identified. Assessment: 04:37 Reassessment: see triage assessment. bm8 04:46 Respiratory: Airway is patent Respiratory effort is even, unlabored, Respiratory bm8 pattern is regular, symmetrical, Breath sounds are clear bilaterally. Vital Signs: 04:31 BP 146 / 89; Pulse 93; Resp 16; Temp 98.3; Pulse Ox 99% on R/A; Weight 99.79 kg; Pain bm8 9/10; 04:31 Pain Scale: Adult bm8 ED Course: 04:25 Patient arrived in ED. jj6 04:26 Lenard Gandara MD is Attending Physician. ec2 04:31 Prince Lopez, RN is Primary Nurse. bm8 04:34 Triage completed. bm8 04:34 Arm band placed on right wrist. bm8 04:37 Patient has correct armband on for positive identification. Bed in low position. Call bm8 light in reach. Provided Education on: POST ER CARE. 04:37 No provider procedures requiring assistance completed. Patient did not have IV access bm8 during this emergency room visit. 04:43 Lenard Gandara MD is Attending Physician. bm8 Administered Medications: 04:42 Drug: Viscous Lidocaine Mucous Membrane Liquid (4 %) 10 ml Mucous Membrane once Route: bm8 Mucous Membrane; 04:45 Follow up: Response: Medication administered at discharge. bm8 04:42 Drug: predniSONE PO 20 mg PO once Route: PO; bm8 04:45 Follow up: Response: Medication administered at discharge. bm8 Medication: 04:37 VIS not applicable for this client. bm8 Outcome: 04:37 Discharge ordered by . ec2 04:43 Discharged to home ambulatory, bm8 04:43 Condition: stable 04:43 Discharge instructions given to patient, Instructed on discharge instructions, follow up and referral plans. medication usage, Demonstrated understanding of instructions, follow-up care, medications, Prescriptions given X 1, 04:43 Patient left the ED. bm8 Signatures: Nieves Villafana jj6 Lenard Gandara MD MD ec2 Prince Lopez, RN RN bm8
[2023-07-13] MEDS ORDERED: predniSONE 20 MG TAB ONE (04:39)
[2023-07-13] MEDS ORDERED: LIDOCAINE VISCOUS 2% 10ML ORAL SOLN ONE (04:39)
[2023-07-13 04:50] VITALS: BP 146/89; TEMP 98.3; O2SAT 99
== END 2023-07-13 04:43 | disposition home or self-care (01) ==
LOC: ER 04:23
DX: J02.9 Acute pharyngitis, unspecified (principal)
CPT/HCPCS: 99283; J7512

== ENCOUNTER 2023-09-14 13:26 | Emergency (ER) | payer OTHER, SELFPAY ==
--- OUTSIDE RECORDS SUMMARY | 2023-09-14 13:34 | XMS REPORT | Continuity of Care Document ---
Author Name Unknown Address [address] [facility] [address] [place] [address] [facility]connect Address [address] [place] [address] [address] [place] [address] Care Team Providers Care Licensed Architect Name Role Phone ESTEVAN ADAMS Primary Care Physician UnaESTEVAN Fox Attending Clinician Unavail able YAN POPE Attending Clinician Unavailable OMKAR HOU Attending Clinician OMKAR Bender Attending Clinician JULISSA Marti Attending Clinician Unavailable JENNIFER PURI Attending Clinician Unavaila ble GC_GCBZW_Kadiyala_S Attending Clinician Unavaila Estevan Villalobos Attending Clinician + Jessika Manrique MD Attending Clinician [phone] JESSIKA MANRIQUE Attending Clinician Unavailable Unknown, Attending Attending Clinician UnavailJennifer Limon CNM Attending Clinician [phone] Doctor Unassigned, [place] Attending Clinician U SIRIA Dugan Attending Clinician Unavailab TIANA Argueta Attending Clinician Unavailable Tiana Antonio MD Attending Clinician [phone] Visit, [facility] Nurse Attending Clinician Siria Miller Attending Clinician [phone] Jenan LARRY, Maisha Attending Clinician Unavailable EASTON RIOJAS Attending Clinician Unavailable Nurse, Naun Rmchp Exp Cprit Obgyn Attending Clini luis felipe Unavailable JODEE ALMAZAN Attending Clinician Unavailable King MARC, Jodee Suarez Attending Clinician [phone] Jim MARC, Zbigniew French Attending Clinician + [phone] Mariluz MARC, Glen Attending Clinician [phone] Leonel Mason MD Attending Clinician [phone] Ultrasound, Ang-Mfm Attending Clinician Unavaila galilea Cruz MD, Katelyn French Attending Clinician + [phone] KATELYN CRUZ Attending Clinician Unavailable KATELYN CRZU Attending Clinician Unavailable Lab, Ang-Rmchp Attending Clinician Unavailable Yelena WHCNP, Aaron Strong Attending Clinician + AARON ALICEA Attending Clinician Unavail able Provider, Ang-Rmchp Temp Attending Clinician Dalila Silvana Whitehead MD Attending Clinician [phone] SILVANA VENEGAS Attending Clinician Unavailable SILVANA VENEGAS Attending Clinician Unavailable Sukhjinder CUSTOMER MANAGER, Bo Hunt Attending Clinician [phone] BO RIVERA Attending Clinician Unavailyahaira Adhikari CUSTOMER MANAGER, Nguyễn Attending Clinician [phone] AMAYA GURROLA Attending Clinician Unavailable Casey CUSTOMER MANAGER, Amaya Attending Clinician [phone] Palmira Phillips Attending Clinician Unavailyahaira Escoto MD, Yair Borjas Attending Clinician [phone] Gianni Whitaker MD Attending Clinician [phone] Robbie Wolfe MD, Cristin Attending Clinician + Julissa Michele MD Attending Clinician [phone] Reji Cruz DO Attending Clinician [phone] Seth CUSTOMER MANAGER, Emma Attending Clinician + [phone] Zoe Toledo MD Attending Clinician [phone] Provider, [facility] Attending Clinician Un available Saadia Arce Attending Clinician [phone] SAADIA LOVETT Attending Clinician Unavailable Delano Islas Attending Clinician [phone] DELANO NELSON Attending Clinician UnavailYOVANY Barnhart Attending Clinician Unavailable JAIME CLEMENT Attending Clinician Unavailable GC_GCBZW_Kadiyala_S Admitting Clinician UnavailJODEE León Admitting Clinician Unavailable Jodee Almazan MD Admitting Clinician Julissa Michele MD Admitting Clinician [phone] Payers Payer Name Policy Type Policy Number Effective Date Expirati on Date Source [employer] [place] [employer] [id number] 2016 00:00:00 [facility] [id number] 2023 00:00:00 [place] [employer] [id number] 2022 00:00:00 MEDICAID PENDING PENDING 2020 00:00:00 Problems Condition Name Condition Details Condition Category Status Onset Date Resolution Date Last Treatment Date Treating Clinician Comments Source Presence of intrauteri ne contracept yamila device Presence of intrauteri ne contracept yamila device Disease Active 7- 00:00: 00 [facility] History of abnormal cervical Pap smear History of abnormal cervical Pap smear Disease Active - 00:00: 00 Overview: Formattin g of this [...] high risk in third trimester Disease Active 7- 00:00: 00 [facility] SAB (spontaneo us ) SAB (spontaneo us ) Disease Active 7 00:00: 00 [facility] in first trimester with history of ectopic in first trimester with history of ectopic Disease Active 7- 00:00: 00 [facility] Primigravi da in third trimester Primigravi da in third trimester Disease Active 7 00:00: 00 [facility] BMI 45.0-49.9, adult BMI 45.0-49.9, adult Disease Active 7-19 00:00: 00 [facility] History of ectopic History of ectopic Disease Active 4-02 00:00: 00 [facility] Screening examinatio n for STD (sexually transmitte d disease) Screening examinatio n for STD (sexually transmitte d disease) Disease Active 05-10 00:00: 00 [facility] Morbid obesity Morbid obesity Disease Active 1-06 00:00: 00 [facility] Allergies, Adverse Reactions, Alerts Allergy Name Allergy Type Status Severity Reaction(s) Onset Date Inactive Date Treating Clinician Comments Source NO KNOWN ALLERGIE S Drug Class Active [facility] Social History Social Habit Start Date Stop Date Quantity Comments Source History SDOH Alcohol Frequency [facility] History SDOH [facility] History SDOH Alcohol Binge [facility]ION [facility] Alcohol intake 2022-12-02 00:00:00 2022-12-02 00:00:00 Current drinker of alcohol (finding) [facility] History of Social function 2022-12-02 00:00:00 2022-12-02 00:00:00 [facility] Alcohol Comment 2022-10-02 00:00:00 2022-10-02 00:00:00 occasional [facility] Exposure to SARS-CoV-2 (event) 2022-04-20 00:00:00 2022-04-30 10:31:00 Not sure [facility] Tobacco use and exposure 2021-12-06 00:00:00 2021-12-06 00:00:00 Smokeless tobacco non-user [facility] Sex Assigned At 1995 00:00:00 1995 00:00:00 [facility] Smoking Status Start Date Stop Date Source Never smoked tobacco [facility] Medications Ordered Medication Name Filled Medication Name Start Date Stop Date Current Medication? Ordering Clinician Indication Dosage Frequency Signature (SIG) Comments Components Source azelastine 137 mcg (0.1 %) nasal spray -13 00:00: 00 Yes [id number] 1{spray } Use 1 Chaplin in each nostril in the morning and 1 Chaplin in the evening. Use in each nostril as directed [facility] bromphenira mine-pseudo ephedrine-D M (BROMFED DM) 2-30-10 mg/5 mL syrup 12-05 00:00: 00 Yes [id number] 10mL Take 10 mL by mouth 4 (four) times daily as needed for Congestion /Allergies , Cough or Cold symptoms. [facility] fluticasone propionate 50 mcg/actuati on nasal spray 12-05 00:00: 00 Yes [id number] 1{spray } Use 1 Chaplin in each nostril in the morning. [facility] methylPREDN ISolone (MEDROL, KRISTA,) 4 mg tablets 12-05 00:00: 00 Yes [id number] Take by mouth SEE-INSTRU CTIONS. follow package directions [facility] bromphenira mine-pseudo ephedrine-D M (BROMFED DM) 2-30-10 mg/5 mL syrup 12-02 00:00: 00 Yes [id number] 10mL Take 10 mL by mouth 4 (four) times daily as needed for Congestion /Allergies , Cough or Cold symptoms. [facility] azelastine 137 mcg (0.1 %) nasal spray 12-02 00:00: 00 Yes [id number] 1{spray } Use 1 Chaplin in each nostril in the morning and 1 Chaplin in the evening. Use in each nostril as directed [facility] fluticasone propionate 50 mcg/actuati on nasal spray 12-02 00:00: 00 Yes [id number] 1{spray } Use 1 Chaplin in each nostril in the morning. [facility] methylPREDN ISolone (MEDROL, KRISTA,) 4 mg tablets 12-02 00:00: 00 Yes [id number] Take by mouth SEE-INSTRU CTIONS. follow package directions [facility] metroNIDAZO LE 500 mg tablet 10-04 00:00: 00 10-05 04:59 :00 No [id number] 2000mg Take 4 tablets by mouth once now for 1 dose. [facility] copper (PARAGARD T 380A) IUD 1 Intra Uterine Device 2-06 17:45: 00 04-30 17:01 :00 No [id number] 1{IUD} [facility] amoxicillin -clavulanat e (AUGMENTIN) 875-125 mg per tablet 2021-03 00:00: 00 02-01 05:59 :00 No [id number] 1{tbl} Take 1 tablet by mouth in the morning and 1 tablet in the evening. Do all this for 7 days. [facility] phenazopyri dine 100 mg tablet 2021-03 00:00: 00 01-27 04:59 :00 No [id number] 200mg Take 2 tablets by mouth in the morning and 2 tablets at noon and 2 tablets in the evening. Do all this for 2 days. [facility] levonorgest rel-ethinyl estradiol (SRONYX) 0.1-20 mg-mcg per tablet 12-06 00:00: 00 10-02 00:00 :00 No [id number] 1{tbl} Take 1 tablet by mouth in the morning. [facility] ondansetron 4 mg disintegrat ing tablet 07-03 00:00: 00 10-02 00:00 :00 No [id number] 4mg Take 1 tablet by mouth every 8 (eight) hours as needed for Nausea and Vomiting (N/V). [facility] norethindro ne 0.35 mg tablet 330 00:00: 00 10-02 00:00 :00 No [id number] 1{tbl} Take 1 tablet by mouth daily. [facility] Immunizations Ordered Immunization Name Filled Immunization Name Date Status Comments Source HPV9 2021-05-17 00:00:00 Completed [facility] HPV9 2021-05-17 00:00:00 Completed [facility] HPV9 2021-05-17 00:00:00 Completed [facility] HPV9 2021-05-17 00:00:00 Completed [facility]9 2021-05-17 00:00:00 Completed [facility] 2021-05-17 00:00:00 Completed [facility] HPV9 2021-05-17 00:00:00 Completed [facility] HPV9 2021-05-17 00:00:00 Completed [facility] HPV9 2021-05-17 00:00:00 Completed [facility] HPV9 2021-05-17 00:00:00 Completed [facility] HPV9 2021-05-17 00:00:00 Completed [facility] HPV9 2021-05-17 00:00:00 Completed [facility] HPV9 2021-05-17 00:00:00 Completed [facility] HPV9 2021-05-17 00:00:00 Completed [facility] HPV9 2021-05-17 00:00:00 Completed [facility] HPV9 2021-05-17 00:00:00 Completed [facility] HPV9 2021-05-17 00:00:00 Completed [facility] HPV9 2021-05-17 00:00:00 Completed [facility] HPV9 2021-05-17 00:00:00 Completed [facility] HPV9 2021-05-17 00:00:00 Completed [facility] HPV9 2021-05-17 00:00:00 Completed [facility] HPV9 2021-05-17 00:00:00 Completed [facility] HPV9 2021-05-17 00:00:00 Completed [facility] HPV9 2021-05-17 00:00:00 Completed [facility] HPV9 2021-05-17 00:00:00 Completed [facility] HPV9 2021-05-17 00:00:00 Completed [facility] HPV9 2021-05-17 00:00:00 Completed [facility] TDAP 2021-02-22 00:00:00 Completed [facility] TDAP 2021-02-22 00:00:00 Completed [facility] TDAP 2021-02-22 00:00:00 Completed [facility] TDAP 2021-02-22 00:00:00 Completed [facility] TDAP 2021-02-22 00:00:00 Completed [facility] TDAP 2021-02-22 00:00:00 Completed [facility] TDAP 2021-02-22 00:00:00 Completed [facility] TDAP 2021-02-22 00:00:00 Completed [facility] TDAP 2021-02-22 00:00:00 Completed [facility] TDAP 2021-02-22 00:00:00 Completed [facility] TDAP 2021-02-22 00:00:00 Completed [facility] TDAP 2021-02-22 00:00:00 Completed [facility] TDAP 2021-02-22 00:00:00 Completed [facility] TDAP 2021-02-22 00:00:00 Completed [facility] TDAP 2021-02-22 00:00:00 Completed [facility] TDAP 2021-02-22 00:00:00 Completed [facility] TDAP 2021-02-22 00:00:00 Completed [facility] TDAP 2021-02-22 00:00:00 Completed [facility] TDAP 2021-02-22 00:00:00 Completed [facility] TDAP 2021-02-22 00:00:00 Completed [facility] TDAP 2021-02-22 00:00:00 Completed [facility] TDAP 2021-02-22 00:00:00 Completed [facility] TDAP 2021-02-22 00:00:00 Completed [facility] TDAP 2021-02-22 00:00:00 Completed [facility] TDAP 2021-02-22 00:00:00 Completed [facility] TDAP 2021-02-22 00:00:00 Completed [facility] TDAP 2021-02-22 00:00:00 Completed [facility] SARS-COV-2 COVID-19 MAURICIO/J&J VACCINE 2020-07-26 00:00:00 Completed [facility] SARS-COV-2 COVID-19 MAURICIO/J&J VACCINE 2020-07-26 00:00:00 Completed [facility] SARS-COV-2 COVID-19 MAURICIO/J&J VACCINE 2020-07-26 00:00:00 Completed [facility] SARS-COV-2 COVID-19 MAURICIO/J&J VACCINE 2020-07-26 00:00:00 Completed [facility] SARS-COV-2 COVID-19 MAURICIO/J&J VACCINE 2020-07-26 00:00:00 Completed [facility] SARS-COV-2 COVID-19 MAURICIO/J&J VACCINE 2020-07-26 00:00:00 Completed [facility] SARS-COV-2 COVID-19 MAURICIO/J&J VACCINE 2020-07-26 00:00:00 Completed [facility] SARS-COV-2 COVID-19 MAURICIO/J&J VACCINE 2020-07-26 00:00:00 Completed [facility] SARS-COV-2 COVID-19 MAURICIO/J&J VACCINE 2020-07-26 00:00:00 Completed [facility] SARS-COV-2 COVID-19 MAURICIO/J&J VACCINE 2020-07-26 00:00:00 Completed [facility] SARS-COV-2 COVID-19 MAURICIO/J&J VACCINE 2020-07-26 00:00:00 Completed [facility] SARS-COV-2 COVID-19 MAURICIO/J&J VACCINE 2020-07-26 00:00:00 Completed [facility] SARS-COV-2 COVID-19 MAURICIO/J&J VACCINE 2020-07-26 00:00:00 Completed [facility] SARS-COV-2 COVID-19 MAURICIO/J&J VACCINE 2020-07-26 00:00:00 Completed [facility] SARS-COV-2 COVID-19 MAURICIO/J&J VACCINE 2020-07-26 00:00:00 Completed [facility] SARS-COV-2 COVID-19 MAURICIO/J&J VACCINE 2020-07-26 00:00:00 Completed [facility] SARS-COV-2 COVID-19 MAURICIO/J&J VACCINE 2020-07-26 00:00:00 Completed [facility] SARS-COV-2 COVID-19 MAURICIO/J&J VACCINE 2020-07-26 00:00:00 Completed [facility] SARS-COV-2 COVID-19 MAURICIO/J&J VACCINE 2020-07-26 00:00:00 Completed [facility] SARS-COV-2 COVID-19 MAURICIO/J&J VACCINE 2020-07-26 00:00:00 Completed [facility] SARS-COV-2 COVID-19 MAURICIO/J&J VACCINE 2020-07-26 00:00:00 Completed [facility] SARS-COV-2 COVID-19 MAURICIO/J&J VACCINE 2020-07-26 00:00:00 Completed [facility] SARS-COV-2 COVID-19 MAURICIO/J&J VACCINE 2020-07-26 00:00:00 Completed [facility] SARS-COV-2 COVID-19 MAURICIO/J&J VACCINE 2020-07-26 00:00:00 Completed [facility] SARS-COV-2 COVID-19 MAURICIO/J&J VACCINE 2020-07-26 00:00:00 Completed [facility] SARS-COV-2 COVID-19 MAURICIO/J&J VACCINE 2020-07-26 00:00:00 Completed [facility] SARS-COV-2 COVID-19 MAURICIO/J&J VACCINE 2020-07-26 00:00:00 Completed [facility] HPV 2013-11-11 00:00:00 Completed [facility] HPV 2013-11-11 00:00:00 Completed [facility] HPV 2013-11-11 00:00:00 Completed [facility] HPV 2013-11-11 00:00:00 Completed [facility] HPV 2013-11-11 00:00:00 Completed [facility] HPV 2013-11-11 00:00:00 Completed [facility] HPV 2013-11-11 00:00:00 Completed [facility] HPV 2013-11-11 00:00:00 Completed [facility] HPV 2013-11-11 00:00:00 Completed [facility] HPV 2013-11-11 00:00:00 Completed [facility] HPV 2013-11-11 00:00:00 Completed [facility] HPV 2013-11-11 00:00:00 Completed [facility] HPV 2013-11-11 00:00:00 Completed [facility] HPV 2013-11-11 00:00:00 Completed [facility] HPV 2013-11-11 00:00:00 Completed [facility] HPV 2013-11-11 00:00:00 Completed [facility] HPV 2013-11-11 00:00:00 Completed [facility] HPV 2013-11-11 00:00:00 Completed [facility] HPV 2013-11-11 00:00:00 Completed [facility] HPV 2013-11-11 00:00:00 Completed [facility] HPV 2013-11-11 00:00:00 Completed [facility] HPV 2013-11-11 00:00:00 Completed [facility] HPV 2013-11-11 00:00:00 Completed [facility] HPV 2013-11-11 00:00:00 Completed [facility] HPV 2013-11-11 00:00:00 Completed [facility] HPV 2013-11-11 00:00:00 Completed [facility] HPV 2013-11-11 00:00:00 Completed [facility] HPV 2013-09-11 00:00:00 Completed [facility] HPV 2013-09-11 00:00:00 Completed [facility] HPV 2013-09-11 00:00:00 Completed [facility] HPV 2013-09-11 00:00:00 Completed [facility] HPV 2013-09-11 00:00:00 Completed [facility] HPV 2013-09-11 00:00:00 Completed [facility] HPV 2013-09-11 00:00:00 Completed [facility] HPV 2013-09-11 00:00:00 Completed [facility] HPV 2013-09-11 00:00:00 Completed [facility] HPV 2013-09-11 00:00:00 Completed [facility] HPV 2013-09-11 00:00:00 Completed [facility] HPV 2013-09-11 00:00:00 Completed [facility] HPV 2013-09-11 00:00:00 Completed [facility] HPV 2013-09-11 00:00:00 Completed [facility] HPV 2013-09-11 00:00:00 Completed [facility] HPV 2013-09-11 00:00:00 Completed [facility] HPV 2013-09-11 00:00:00 Completed [facility] HPV 2013-09-11 00:00:00 Completed [facility] HPV 2013-09-11 00:00:00 Completed [facility] HPV 2013-09-11 00:00:00 Completed [facility] HPV 2013-09-11 00:00:00 Completed [facility] HPV 2013-09-11 00:00:00 Completed [facility] HPV 2013-09-11 00:00:00 Completed [facility] HPV 2013-09-11 00:00:00 Completed [facility] HPV 2013-09-11 00:00:00 Completed [facility] HPV 2013-09-11 00:00:00 Completed [facility] HPV 2013-09-11 00:00:00 Completed [facility] HPV 2013-05-10 00:00:00 Completed [facility] HPV 2013-05-10 00:00:00 Completed [facility] HPV 2013-05-10 00:00:00 Completed [facility] HPV 2013-05-10 00:00:00 Completed [facility] HPV 2013-05-10 00:00:00 Completed [facility] HPV 2013-05-10 00:00:00 Completed [facility] HPV 2013-05-10 00:00:00 Completed [facility] HPV 2013-05-10 00:00:00 Completed [facility] HPV 2013-05-10 00:00:00 Completed [facility] HPV 2013-05-10 00:00:00 Completed [facility] HPV 2013-05-10 00:00:00 Completed [facility] HPV 2013-05-10 00:00:00 Completed [facility] HPV 2013-05-10 00:00:00 Completed [facility] HPV 2013-05-10 00:00:00 Completed [facility] HPV 2013-05-10 00:00:00 Completed [facility] HPV 2013-05-10 00:00:00 Completed [facility] HPV 2013-05-10 00:00:00 Completed [facility] HPV 2013-05-10 00:00:00 Completed [facility] HPV 2013-05-10 00:00:00 Completed [facility] HPV 2013-05-10 00:00:00 Completed [facility] HPV 2013-05-10 00:00:00 Completed [facility] HPV 2013-05-10 00:00:00 Completed [facility] HPV 2013-05-10 00:00:00 Completed [facility] HPV 2013-05-10 00:00:00 Completed [facility] HPV 2013-05-10 00:00:00 Completed [facility] HPV 2013-05-10 00:00:00 Completed [facility] HPV 2013-05-10 00:00:00 Completed [facility] Meningococcal Polysaccharide (groups A, C, Y and W-135) conjugate vaccine (MCV4P) 2012-10-16 00:00:00 Completed [facility] Meningococcal Polysaccharide (groups A, C, Y and W-135) conjugate vaccine (MCV4P) 2012-10-16 00:00:00 Completed [facility] Meningococcal Polysaccharide (groups A, C, Y and W-135) conjugate vaccine (MCV4P) 2012-10-16 00:00:00 Completed [facility] Meningococcal Polysaccharide (groups A, C, Y and W-135) conjugate vaccine (MCV4P) 2012-10-16 00:00:00 Completed [facility] Meningococcal Polysaccharide (groups A, C, Y and W-135) conjugate vaccine (MCV4P) 2012-10-16 00:00:00 Completed [facility] Td 2010-10-28 00:00:00 Completed [facility] Td 2010-10-28 00:00:00 Completed [facility] Td 2010-10-28 00:00:00 Completed [facility] Td 2010-10-28 00:00:00 Completed [facility] Td 2010-10-28 00:00:00 Completed [facility] Td 2010-10-28 00:00:00 Completed [facility] Td 2010-10-28 00:00:00 Completed [facility] Td 2010-10-28 00:00:00 Completed [facility] Td 2010-10-28 00:00:00 Completed [facility] Td 2010-10-28 00:00:00 Completed [facility] Td 2010-10-28 00:00:00 Completed [facility] Td 2010-10-28 00:00:00 Completed [facility] TD, NOS 2010-10-28 00:00:00 Completed [facility] TD, NOS 2010-10-28 00:00:00 Completed [facility] TD, NOS 2010-10-28 00:00:00 Completed [facility] TD, NOS 2010-10-28 00:00:00 Completed [facility] TD, NOS 2010-10-28 00:00:00 Completed [facility] TD, NOS 2010-10-28 00:00:00 Completed [facility] TD, NOS 2010-10-28 00:00:00 Completed [facility] TD, NOS 2010-10-28 00:00:00 Completed [facility] TD, NOS 2010-10-28 00:00:00 Completed [place] [facility] TD, NOS 2010-10-28 00:00:00 Completed [facility] TD, NOS 2010-10-28 00:00:00 Completed [facility] TD, NOS 2010-10-28 00:00:00 Completed [facility] TD, NOS 2010-10-28 00:00:00 Completed [facility] TD, NOS 2010-10-28 00:00:00 Completed [facility] TD, NOS 2010-10-28 00:00:00 Completed [facility] HEPATITIS A 2009-09-16 00:00:00 Completed [facility] HEPATITIS A 2009-09-16 00:00:00 Completed [facility] HEPATITIS A 2009-09-16 00:00:00 Completed [facility] HEPATITIS A 2009-09-16 00:00:00 Completed [facility] HEPATITIS A 2009-09-16 00:00:00 Completed [facility] HEPATITIS A 2008-07-28 00:00:00 Completed [facility] Meningococcal Polysaccharide (groups A, C, Y and W-135) conjugate vaccine (MCV4P) 2008-07-28 00:00:00 Completed [facility] MMR 2008-07-28 00:00:00 Completed [facility] TDAP 2008-07-28 00:00:00 Completed [facility] HEPATITIS A 2008-07-28 00:00:00 Completed [facility] Meningococcal Polysaccharide (groups A, C, Y and W-135) conjugate vaccine (MCV4P) 2008-07-28 00:00:00 Completed [facility] MMR 2008-07-28 00:00:00 Completed [facility] TDAP 2008-07-28 00:00:00 Completed [facility] HEPATITIS A 2008-07-28 00:00:00 Completed [facility] Meningococcal Polysaccharide (groups A, C, Y and W-135) conjugate vaccine (MCV4P) 2008-07-28 00:00:00 Completed [facility] MMR 2008-07-28 00:00:00 Completed [facility] TDAP 2008-07-28 00:00:00 Completed [facility] HEPATITIS A 2008-07-28 00:00:00 Completed [facility] Meningococcal Polysaccharide (groups A, C, Y and W-135) conjugate vaccine (MCV4P) 2008-07-28 00:00:00 Completed [facility] MMR 2008-07-28 00:00:00 Completed [facility] TDAP 2008-07-28 00:00:00 Completed [facility] HEPATITIS A 2008-07-28 00:00:00 Completed [facility] Meningococcal Polysaccharide (groups A, C, Y and W-135) conjugate vaccine (MCV4P) 2008-07-28 00:00:00 Completed [facility] MMR 2008-07-28 00:00:00 Completed [facility] TDAP 2008-07-28 00:00:00 Completed [facility] DTaP, Unspecified Formulation 2002-04-01 00:00:00 Completed [facility] MMR 2002-04-01 00:00:00 Completed [facility] IPV 2002-04-01 00:00:00 Completed [facility] DTaP, Unspecified Formulation 2002-04-01 00:00:00 Completed [facility] MMR 2002-04-01 00:00:00 Completed [facility] IPV 2002-04-01 00:00:00 Completed [facility] DTaP, Unspecified Formulation 2002-04-01 00:00:00 Completed [facility] MMR 2002-04-01 00:00:00 Completed [facility] IPV 2002-04-01 00:00:00 Completed [facility] DTaP, Unspecified Formulation 2002-04-01 00:00:00 Completed [facility] MMR 2002-04-01 00:00:00 Completed [facility] IPV 2002-04-01 00:00:00 Completed [facility] DTaP, Unspecified Formulation 2002-04-01 00:00:00 Completed [facility] MMR 2002-04-01 00:00:00 Completed [facility] IPV 2002-04-01 00:00:00 Completed [facility] DPT/HIB 1996 00:00:00 Completed [facility] Hep B, Unspecified Formulation 1996 00:00:00 Completed [facility] Poliovirus, Live, Oral, Trivalent 1996 00:00:00 Completed [facility] DPT/HIB 1996 00:00:00 Completed [facility] Hep B, Unspecified Formulation 1996 00:00:00 Completed [facility] Poliovirus, Live, Oral, Trivalent 1996 00:00:00 Completed [facility] DPT/HIB 1996 00:00:00 Completed [facility] Hep B, Unspecified Formulation 1996 00:00:00 Completed [facility] Poliovirus, Live, Oral, Trivalent 1996 00:00:00 Completed [facility] DPT/HIB 1996 00:00:00 Completed [facility] Hep B, Unspecified Formulation 1996 00:00:00 Completed [facility] Poliovirus, Live, Oral, Trivalent 1996 00:00:00 Completed [facility] DPT/HIB 1996 00:00:00 Completed [facility] Hep B, Unspecified Formulation 1996 00:00:00 Completed [facility] Poliovirus, Live, Oral, Trivalent 1996 00:00:00 Completed [facility] Hep B, Unspecified Formulation 1996 00:00:00 Completed [facility] Hep B, Unspecified Formulation 1996 00:00:00 Completed [facility] Hep B, Unspecified Formulation 1996 00:00:00 Completed [facility] Hep B, Unspecified Formulation 1996 00:00:00 Completed [facility] Hep B, Unspecified Formulation 1996 00:00:00 Completed [facility] TD, NOS Unknown Completed [facility] HPV Unknown Completed [facility] SARS-COV-2 COVID-19 MAURICIO/J&J VACCINE Unknown Completed [facility] TDAP Unknown Completed [facility] HPV Unknown Completed [facility] HPV Unknown Completed [facility] HPV9 Unknown Completed [facility] DTaP, Unspecified Formulation Unknown Completed [facility] DPT/HIB Unknown Completed [facility] HEPATITIS A Unknown Completed [facility] HEPATITIS A Unknown Completed [facility] Hep B, Unspecified Formulation Unknown Completed [facility] Hep B, Unspecified Formulation Unknown Completed [facility] Meningococcal Polysaccharide (groups A, C, Y and W-135) conjugate vaccine (MCV4P) Unknown Completed [facility] Meningococcal Polysaccharide (groups A, C, Y and W-135) conjugate vaccine (MCV4P) Unknown Completed [facility] MMR Unknown Completed [facility] MMR Unknown Completed [facility] IPV Unknown Completed [facility] Poliovirus, Live, Oral, Trivalent Unknown Completed [facility] TDAP Unknown Completed [facility] TD, NOS Unknown Completed [facility] HPV Unknown Completed [facility] SARS-COV-2 COVID-19 MAURICIO/J&J VACCINE Unknown Completed [facility] TDAP Unknown Completed [facility] HPV Unknown Completed [facility] HPV Unknown Completed [facility] HPV9 Unknown Completed [facility] DTaP, Unspecified Formulation Unknown Completed [facility] DPT/HIB Unknown Completed [facility] HEPATITIS A Unknown Completed [facility] HEPATITIS A Unknown Completed [facility] Hep B, Unspecified Formulation Unknown Completed [facility] Hep B, Unspecified Formulation Unknown Completed [facility] Meningococcal Polysaccharide (groups A, C, Y and W-135) conjugate vaccine (MCV4P) Unknown Completed [facility] Meningococcal Polysaccharide (groups A, C, Y and W-135) conjugate vaccine (MCV4P) Unknown Completed [facility] MMR Unknown Completed [facility] MMR Unknown Completed [facility] IPV Unknown Completed [facility] Poliovirus, Live, Oral, Trivalent Unknown Completed [facility] TDAP Unknown Completed [facility] TD, NOS Unknown Completed [facility] HPV Unknown Completed [facility] SARS-COV-2 COVID-19 MAURICIO/J&J VACCINE Unknown Completed [facility] TDAP Unknown Completed [facility] HPV Unknown Completed [facility] HPV Unknown Completed [facility] DTaP, Unspecified Formulation Unknown Completed [facility] DPT/HIB Unknown Completed [facility] HEPATITIS A Unknown Completed [facility] HEPATITIS A Unknown Completed [facility] Hep B, Unspecified Formulation Unknown Completed [facility] Hep B, Unspecified Formulation Unknown Completed [facility] Meningococcal Polysaccharide (groups A, C, Y and W-135) conjugate vaccine (MCV4P) Unknown Completed [facility] Meningococcal Polysaccharide (groups A, C, Y and W-135) conjugate vaccine (MCV4P) Unknown Completed [facility] MMR Unknown Completed [facility] MMR Unknown Completed [facility] IPV Unknown Completed [facility] Poliovirus, Live, Oral, Trivalent Unknown Completed [facility] TDAP Unknown Completed [facility] TD, NOS Unknown Completed [facility] HPV Unknown Completed [facility] SARS-COV-2 COVID-19 MAURICIO/J&J VACCINE Unknown Completed [facility] HPV Unknown Completed [facility] HPV Unknown Completed [facility] DTaP, Unspecified Formulation Unknown Completed [facility] DPT/HIB Unknown Completed [facility]PATITIS A Unknown [facility] Hep B, Unspecified Formulation Unknown Completed [facility] Hep B, Unspecified Formulation Unknown Completed [facility] Meningococcal Polysaccharide (groups A, C, Y and W-135) conjugate vaccine (MCV4P) Unknown Completed [facility] Meningococcal Polysaccharide (groups A, C, Y and W-135) conjugate vaccine (MCV4P) Unknown Completed [facility] MMR Unknown Completed [facility] MMR Unknown Completed [facility] IPV Unknown Completed [facility] Poliovirus, Live, Oral, Trivalent Unknown Completed [facility] TDAP Unknown Completed [facility] TD, NOS Unknown Completed [facility] HPV Unknown Completed [facility] SARS-COV-2 COVID-19 MAURICIO/J&J VACCINE Unknown Completed [facility] TDAP Unknown Completed [facility] HPV Unknown Completed [facility] HPV Unknown Completed [facility] HPV9 Unknown Completed [facility] DTaP, Unspecified Formulation Unknown Completed [facility] DPT/HIB Unknown Completed [facility] HEPATITIS A Unknown Completed [facility] HEPATITIS A Unknown Completed [facility] Hep B, Unspecified Formulation Unknown Completed [facility] Hep B, Unspecified Formulation Unknown Completed [facility] Meningococcal Polysaccharide (groups A, C, Y and W-135) conjugate vaccine (MCV4P) Unknown Completed [facility] Meningococcal Polysaccharide (groups A, C, Y and W-135) conjugate vaccine (MCV4P) Unknown Completed [facility] MMR Unknown Completed [facility] MMR Unknown Completed [facility] IPV Unknown Completed [facility] Poliovirus, Live, Oral, Trivalent Unknown Completed [facility] TDAP Unknown Completed [facility] Vital Signs Vital Name Observation Time Observation Value Comments S ource Systolic blood pressure 2022-12-03 00:15:00 118 mm[Hg] [facility] Diastolic blood pressure 2022-12-03 00:15:00 79 mm[Hg] [facility] Heart rate 2022-12-03 00:15:00 99 /min [facility] Body temperature 2022-12-03 00:15:00 37.44 Emmanuelle [facility] Respiratory rate 2022-12-03 00:15:00 15 /min [facility] Body height 2022-12-03 00:15:00 165.1 cm [facility] Body weight 2022-12-03 00:15:00 138.256 kg [facility] BMI 2022-12-03 00:15:00 50.72 kg/m2 [facility] Oxygen saturation in Arterial blood by Pulse oximetry 2022-12-03 00:15:00 98 /min [facility] Systolic blood pressure 2022-10-02 18:30:00 136 mm[Hg] [facility] Diastolic blood pressure 2022-10-02 18:30:00 75 mm[Hg] [facility] Heart rate 2022-10-02 18:30:00 80 /min [facility] Body temperature 2022-10-02 18:30:00 36.83 Emmanuelle [facility] Respiratory rate 2022-10-02 18:30:00 18 /min [facility] Body height 2022-10-02 18:30:00 162.6 cm [facility] Body weight 2022-10-02 18:30:00 132.904 kg [facility] BMI 2022-10-02 18:30:00 50.29 kg/m2 [facility] Systolic blood pressure 2022-04-30 16:31:00 133 mm[Hg] [facility] Diastolic blood pressure 2022-04-30 16:31:00 84 mm[Hg] [facility] Heart rate 2022-04-30 16:31:00 76 /min [facility] Body temperature 2022-04-30 16:31:00 35.83 Emmanuelle [facility] Respiratory rate 2022-04-30 16:31:00 18 /min [facility] Body height 2022-04-30 16:31:00 162.6 cm [facility] Body weight 2022-04-30 16:31:00 131.815 kg [facility] BMI 2022-04-30 16:31:00 49.88 kg/m2 [facility] Systolic blood pressure 2022-04-19 15:39:00 119 mm[Hg] [facility] Diastolic blood pressure 2022-04-19 15:39:00 76 mm[Hg] [facility] Heart rate 2022-04-19 15:39:00 81 /min [facility] Body temperature 2022-04-19 15:39:00 36.61 Emmanuelle [facility] Respiratory rate 2022-04-19 15:39:00 18 /min [facility] Body height 2022-04-19 15:39:00 162.6 cm [facility] Body weight 2022-04-19 15:39:00 131.044 kg [facility] BMI 2022-04-19 15:39:00 49.59 kg/m2 [facility] Systolic blood pressure 2022-03-03 15:17:00 125 mm[Hg] [facility] Diastolic blood pressure 2022-03-03 15:17:00 87 mm[Hg] [facility] Heart rate 2022-03-03 15:17:00 74 /min [facility] Body temperature 2022-03-03 15:17:00 36.83 Emmanuelle [facility] Respiratory rate 2022-03-03 15:17:00 18 /min [facility] Body height 2022-03-03 15:17:00 162.6 cm [facility] Body weight 2022-03-03 15:17:00 113.399 kg [facility] BMI 2022-03-03 15:17:00 42.91 kg/m2 [facility] Oxygen saturation in Arterial blood by Pulse oximetry 2022-03-03 15:17:00 99 /min [facility] Systolic blood pressure 2022-02-14 20:28:00 138 mm[Hg] [facility] Diastolic blood pressure 2022-02-14 20:28:00 85 mm[Hg] [facility] Heart rate 2022-02-14 20:28:00 66 /min [facility] Body temperature 2022-02-14 20:28:00 36.33 Emmanuelle [facility] Respiratory rate 2022-02-14 20:28:00 20 /min [facility] Body height 2022-02-14 20:28:00 162.6 cm [facility] Body weight 2022-02-14 20:28:00 124.059 kg [facility] BMI 2022-02-14 20:28:00 46.95 kg/m2 [facility] Systolic blood pressure 2022-01-24 22:13:00 144 mm[Hg] Had to try 3x before getting a reading [facility] Diastolic blood pressure 2022-01-24 22:13:00 98 mm[Hg] Had to try 3x before getting a reading [facility] Heart rate 2022-01-24 22:13:00 97 /min [facility] Body temperature 2022-01-24 22:13:00 36.89 Emmanuelle [facility] Respiratory rate 2022-01-24 22:13:00 18 /min [facility] Body height 2022-01-24 22:13:00 162.6 cm [facility] Body weight 2022-01-24 22:13:00 125.919 kg [facility] BMI 2022-01-24 22:13:00 47.65 kg/m2 [facility] Oxygen saturation in Arterial blood by Pulse oximetry 2022-01-24 22:13:00 98 /min [facility] Systolic blood pressure 2021-12-06 13:30:00 124 mm[Hg] [facility] Diastolic blood pressure 2021-12-06 13:30:00 54 mm[Hg] [facility] Heart rate 2021-12-06 13:30:00 72 /min [facility] Body temperature 2021-12-06 13:30:00 36.28 Emmanuelle [facility] Respiratory rate 2021-12-06 13:30:00 18 /min [facility] Body height 2021-12-06 13:30:00 165.1 cm [facility] Body weight 2021-12-06 13:30:00 130.296 kg [facility] BMI 2021-12-06 13:30:00 47.80 kg/m2 [facility] Procedures Procedure Date / Time Performed Performing Clinician Source POCT SARS-COV-2 ANTIGEN (BINAX NOW) 2022-12-03 00:31:00 Jessika Manrique [facility] CBC WITH DIFF 2022-10-02 19:30:00 Jennifer Puri [facility] GLYCOSYLATED HEMOGLOBIN (A1C) 2022-10-02 19:30:00 Jennifer Puri [facility] HCV ANTIBODY 2022-10-02 19:30:[address] [facility] [facility] [place] [place] [facility] & CHLAMYDIA AMPLIFIED ASSAY 2022-10-02 19:30:00 Jennifer Puri [facility] HIV 1/2 AG-AB WITH REFLEX 2022-10-02 19:30:00 Jennifer Puri [facility] TRICHOMONAS AMPLIFIED ASSAY 2022-10-02 19:30:00 Jennifer Puri [facility] PAP SMEAR-LIQUID BASED-CP 2022-10-02 19:30:00 Jennifer Puri [facility] SYPHILIS IGG/IGM 2022-10-02 19:30:00 Jennifer Puri [facility] PATIENT FINANCIAL POLICY 2022-10-02 18:08:46 Doctor Unassigned, [place] [facility] POCT TEST 2022-04-30 16:35:00 Jonel Adams [facility] DISCLOSURE AND CONSENT, MEDICAL AND SURGICAL PROCEDURES 2022-04-30 06:01:00 Doctor Unassigned, [place] [facility] POCT TEST 2022-04-19 15:41:00 Jonel Adams [facility] BASIC METABOLIC PANEL (NA, K, CL, CO2, GLUCOSE, BUN, CREATININE, CA) 2022-03-03 15:57:00 Tiana Antonio [facility] ETHANOL 2022-03-03 15:57:00 Tiana Antonio [facility] CBC WITH DIFF 2022-03-03 15:57:00 Tiana Antonio [facility] URINALYSIS 2022-03-03 15:57:00 Tiana Antonio [facility] URINE DRUG (IMMUNOASSAY) - COMPREHENSIVE DRUG SCREEN W/O REFLEX 2022-03-03 15:57:00 Tiana Antonio [facility] HB ECG ROUTINE & RHYTHM STRIP 2022-03-03 15:55:48 Tiana Antonio [facility] POCT TEST 2022-02-14 20:48:00 Jonel Adams [facility] ASSIGNMENT OF BENEFITS 2022-02-14 19:38:06 Docto r Unassigned, [place] [facility] POCT URINALYSIS 2022-01-24 22:31:00 Jessika Manrique [facility] POCT TEST 2021-12-06 15:36:00 Jonel Adams [facility] Encounters Start Date/Time End Date/Time Encounter Type Admission Type Attending [facility] Facility Care Department Encounter ID Source 2021-01-22 06:46:10 Emergency [facility] [id number] [facility] 2023-08-30 15:15:00 2023-08-30 15:15:00 Outpatient ESTEVAN ALCALA [facility] [id number] [facility] 2023-08-29 10:45:00 2023-08-29 10:45:00 Outpatient YAN GRAHAM [facility] [id number] [facility] 2023-02-21 15:00:00 2023-02-21 15:00:00 Outpatient ESTEVAN ALCALA [facility] [id number] [facility] 2023-01-28 00:00:00 2023-01-28 00:00:00 Outpatient GC_GCBZW_Ka diyala_S PRIV PRIV [id number] [facility] 2023-01-22 08:30:00 2023-01-22 08:30:00 Outpatient ESTEVAN ALCALA [facility] [id number] [facility] 2023-01-19 00:00:00 2023-01-19 00:00:00 Outpatient GC_GCBZW_Ka diyala_S PRIV PRIV [id number] [facility] 2023-01-18 00:00:00 2023-01-18 00:00:00 Outpatient GC_GCBZW_Ka diyala_S PRIV PRIV [id number] [facility] 2023-01-18 00:00:00 2023-01-18 00:00:00 Telephone Estevan Adams [facility] [employer] [facility]ILD [facility] [id number] [facility] 2023-01-14 14:00:00 2023-01-14 14:00:00 Outpatient R JUDE S, OMKAR JUDE S, OMKAR [facility] [id number] [facility] 2022-12-04 00:00:00 2022-12-04 00:00:00 Telephone Jessika Manrique [facility] [id number] [facility] 2022-12-02 19:00:00 2022-12-02 19:35:03 Outpatient JESSIKA MCGUIRE [facility] [id number] [facility] 2022-12-02 19:00:00 2022-12-02 19:20:00 Urgent Care Jessika Manrique, Attending [facility] [id number] [facility] 2022-10-04 00:00:00 2022-10-04 00:00:00 Telephone Jennifer Puri [facility] [employer] [facility] & CHILD [facility] 1..840.114 [id number] [facility] 2022-10-02 13:30:00 2022-10-02 14:31:55 Outpatient R JENNIFER PURI [facility] [id number] [facility] 2022-10-02 13:30:00 2022-10-02 14:31:55 Office Visit Jennifer Puri [facility] [employer] [facility]NAL & CHILD [facility] 1..114 [id number] [facility] 2022-10-02 00:00:00 2022-10-02 00:00:00 Orders Only Doctor Unassigned, [place] [facility] 1..114 [id number] [facility] 2022-07-04 13:15:00 2022-07-04 13:15:00 Outpatient MONTSE MAGANANHKing [facility] [id number] [facility] 2022-07-04 13:15:00 2022-07-04 13:15:00 [facility] [id number] [facility] 2022-07-04 13:00:00 2022-07-04 13:00:00 Outpatient SIRIA MAGANA [facility] [id number] [facility] 2022-04-30 10:00:00 2022-04-30 10:30:00 Office Visit Estevan Adams [facility] SUPER[employer]OR [employer] [facility]NAL & CHILD [facility] 1..114 350.1.13.10 4.2.7.2.686 [id number] 107 [id number] [facility] 2022-04-30 10:00:00 2022-04-30 10:00:00 Outpatient R ESTEVAN ADAMS [facility] [id number] [facility] 2022-04-30 00:00:00 2022-04-30 00:00:00 Orders Only Doctor Unassigned, [place] [facility] 1..114 350.1.13.10 4.2.7.2.686 [id number] [facility] 2022-04-19 09:30:00 2022-04-19 10:05:06 Outpatient R LALYALEJANDROANTONIA ESTEVAN [facility] [id number] [facility] 2022-04-19 09:30:00 2022-04-19 10:05:06 Office Visit Puneet Adamsallie Carlisle [facility] SUPERVISOR [employer] ASSEMBLY [facility] & CHILD [facility] 1.2.840.114 350.1.13.10 4.2.7.2.686 [id number] 107 [id number] [facility] 2022-04-19 00:00:00 2022-04-19 00:00:00 Letter (Out) Estevan Adams [facility] 1.2.840.114 350.1.13.10 4.2.7.2.686 [id number] 107 [id number] [facility] 2022-03-07 09:45:00 2022-03-07 09:45:00 Outpatient R SIRIA ANDERSON [facility] [id number] [facility] 2022-03-03 09:22:00 2022-03-03 12:44:00 Emergency X TIANA ANTONIO [facility] ERT [id number] [facility] 2022-03-03 09:22:00 2022-03-03 12:44:00 Emergency Tiana Antonio E [facility] 1..840.114 350.1.13.10 4.2.7.2.686 [id number] [facility] 2022-02-18 00:00:00 2022-02-18 00:00:00 Refill LalyalejandroEstevan knight [facility] [employer]PER[employer]OR [facility] 1.2.840.114 350.1.13.10 4.2.7.2.686 [id number] 107 [id number] [facility] 2022-02-14 13:30:00 2022-02-14 14:35:37 Nurse Visit Visit, [facility] Nurse Jennifer Puri [facility] SUPERVISOR [employer]SEM[employer] [facility] MAT[facility]NAL & CHILD [facility] 1.114 350.1.13.10 4.2.7.2.686 [id number] 107 [id number] [facility] 2022-02-14 14:30:00 2022-02-14 14:30:00 Outpatient JENNIFER BALL [facility] [id number] [facility] 2022-02-14 13:30:00 2022-02-14 13:30:00 Outpatient JENNIFER BALL [facility] [id number] [facility] 2022-02-14 00:00:00 2022-02-14 00:00:00 Orders Only Doctor Unassigned, [place] [facility] 1.114 350.1.13.10 4.2.7.2.686 [id number] [facility] 2022-02-14 00:00:00 2022-02-14 00:00:00 Telephone Siria Anderson [facility] SUPERVISOR [employer] [facility] & CHILD [facility] 1..114 350.1.13.10 4.2.7.2.686 [id number] 107 [id number] [facility] 2022-02-06 00:00:00 2022-02-06 00:00:00 Telephone Estevan Adams [facility] SUPERVISOR [employer] [facility] & CHILD [facility] 1..114 350.1.13.10 4.2.7.2.686 [id number] 107 [id number] [facility] 2022-01-24 17:20:00 2022-01-24 17:28:54 Outpatient JESSIKA MCGUIRE [facility] [id number] [facility] 2022-01-24 17:20:00 2022-01-24 17:28:54 Urgent Care Jessika Manrique Unknown, [facility] 1.2.840.114 350.1.13.10 4.2.7.2.686 [id number] [facility] 2022-01-01 00:00:00 2022-01-01 00:00:00 Refill EloantoniaPuneetEstevan Orestes [facility] SUPERVISOR [employer]Y [facility] & CHILD [facility] 1.2.840.114 350.1.13.10 4.2.7.2.686 [id number] 107 [id number] [facility] 2022-01-01 00:00:00 2022-01-01 00:00:00 Telephone LalyEstevan wood [facility] SUPERVISOR [employer]SEM[employer]Y [facility] 1.2.840.114 350.1.13.10 4.2.7.2.686 [id number] 107 [id number] [facility] 2021-12-29 00:00:00 2021-12-29 00:00:00 Refill Estevan Adams [facility] SUPERVISOR [employer] ASSEMBLY [facility] CHILD [facility] 1.2.840.114 350.1.13.10 4.2.7.2.686 [id number] 107 [id number] [facility] 2021-12-06 08:15:00 2021-12-06 08:54:24 Office Visit Estevan Adams [facility] SUPERVISOR [employer] ASSEMBLY [facility] CHILD [facility] 1.2.840.114 350.1.13.10 4.2.7.2.686 [id number] 107 [id number] [facility] 2021-12-06 08:15:00 2021-12-06 08:54:24 Outpatient R ESTEVAN ADAMS [facility] [id number] [facility] 2021-12-06 08:15:00 2021-12-06 08:15:00 Outpatient R ESTEVAN ADAMS [facility] [id number] [facility] 2021-11-22 15:15:00 2021-11-22 15:15:00 Outpatient R ESTEVAN ADAMS [facility] [id number] [facility] 2021-11-21 00:00:00 2021-11-21 00:00:00 Telephone Montse Andersonstephanie [facility] SUPERVISOR [employer] [facility] & CHILD [facility] 1.2.840.114 350.1.13.10 4.2.7.2.686 [id number] [facility] 2021-11-20 00:00:00 2021-11-20 00:00:00 Telephone Anette Andersonking [facility] SUPERVISOR [employer]Y [facility] CHILD [facility] 1.2.840.114 350.1.13.10 4.2.7.2.686 [id number] 107 [id number] [facility] 2021-09-03 00:00:00 2021-09-03 00:00:00 Refill Luda Andersonterell [facility] SUPERVISOR [employer]BLY [facility] & CHILD [facility] 1.2.840.114 350.1.13.10 4.2.7.2.686 [id number] 107 [id number] [facility] 2021-07-04 12:45:00 2021-07-04 13:31:36 Office Visit Siria Anderson [facility] SUPERVISOR [employer] ASSEMBLY [facility] CHILD [facility] 1.2.840.114 350.1.13.10 4.2.7.2.686 [id number] 107 [id number] [facility] 2021-07-04 12:45:00 2021-07-04 13:31:36 Outpatient R JUSTIN SIRIA [facility] [id number] [facility] 2021-07-04 12:45:00 2021-07-04 12:45:00 Outpatient R JUSTIN SIRIA [facility] [id number] [facility] 2021-07-04 00:00:00 2021-07-04 00:00:00 Telephone Maisha West [facility] 1.2.840.114 350.1.13.10 4.2.7.2.686 [id number] [facility] 2021-07-03 18:20:00 2021-07-03 18:53:48 Outpatient R JESSIKA MANRIQUE [facility] [id number] [facility] 2021-07-03 18:20:00 2021-07-03 18:53:48 Urgent Care [facility] LUC[facility] 1.114 350.1.13.10 4.2.7.2.686 [id number] [facility] 2021-07-03 18:20:00 2021-07-03 18:53:48 Outpatient R BURTON [facility] [id number] [facility] 2021-07-03 09:30:00 2021-07-03 09:30:00 Outpatient EASTON RIOJAS [id number] [facility] 2021-07-03 08:15:00 2021-07-03 08:15:00 Outpatient EASTON RIOJAS [id number] [facility] 2021-07-03 00:00:00 2021-07-03 00:00:00 Patient Secure Msg Siria Anderson [facility] SUPERVISOR [employer] [facility] & CHILD [facility] .840.114 350.1.13.10 4.2.7.2.686 [id number] 107 [id number] [facility] 2021-06-21 13:00:00 2021-06-21 14:53:50 Outpatient R SIRIA ANDERSON [facility] [id number] [facility] 2021-06-21 13:00:00 2021-06-21 14:53:50 Office Visit Siria Anderson [facility] SUPERVISOR [employer] ASSEMBLY [facility] & CHILD [facility] .840.114 350.1.13.10 4.2.7.2.686 [id number] 107 [id number] [facility] 2021-06-21 13:00:00 2021-06-21 14:53:50 Outpatient Divya SIRIA ANDERSON [facility] [id number] [facility] 2021-05-31 08:00:00 2021-05-31 09:04:36 Outpatient R ANDERSONSIRIA [facility] [id number] [facility] 2021-05-31 08:00:00 2021-05-31 09:04:36 Routine Visit AndersonSiria [facility] SUPERVISOR [employer] ASSEMBLY [facility] & CHILD [facility] 1..840.114 350.1.13.10 4.2.7.2.686 [id number] 107 [id number] [facility] 2021-05-29 00:00:00 2021-05-29 00:00:00 Patient Secure Msg Siria Anderson [facility] SUPERVISOR [employer] [facility] & CHILD [facility] 1..840.114 350.1.13.10 4.2.7.2.686 [id number] 107 [id number] [facility] 2021-05-19 00:00:00 2021-05-19 00:00:00 Telephone Estevan Adams [facility] SUPERVISOR [employer] AS[employer]BLY [facility] & CHILD [facility] 1..840.114 350.1.13.10 4.2.7.2.686 [id number] 107 [id number] [facility] 2021-05-17 13:00:00 2021-05-17 13:00:00 Nurse Visit Nurse, Naun Rmchp Exp Cprit Obgyn AndersonSiria [facility] SUPERVISOR [employer] VE[employer] ASSEMBLY [facility] CHILD [facility] 1.840.114 350.1.13.10 4.2.7.2.686 [id number] 107 [id number] [facility] 2021-05-17 13:00:00 2021-05-17 08:46:02 Outpatient R SIRIA ANDERSON [facility] [id number] [facility] 2021-05-17 08:00:00 2021-05-17 08:45:55 Nurse Visit Visit, Ang-Rmchp Nurse Siria Anderson [facility] SUPERVISOR [employer] ASSEMBLY [facility] & CHILD [facility] 1.2840.114 350.1.13.10 4.2.7.2.686 [id number] 107 [id number] [facility] 2021-05-09 17:42:00 2021-05-12 16:52:00 Inpatient P CASEY ALMAZANIO [facility] [id number] [facility] 2021-05-09 17:42:00 2021-05-12 16:52:00 Hospital Encounter KingCaseyio Daniela [facility] 1.2840.114 350.1.13.10 4.2.7.2.686 [id number] [facility] 2021-05-10 17:00:00 2021-05-10 18:47:00 Surgery Zbigniew Fernandez [facility] 1.2840.114 350.1.13.10 4.2.7.2.686 [id number] [facility] 2021-05-10 09:54:00 2021-05-10 18:34:00 Anesthesia Event Glen Mcgraw Axel [facility] 1.2840.114 350.1.13.10 4.2.7.2.686 [id number] [facility] 2021-05-09 13:15:00 2021-05-09 14:00:22 Outpatient R SIRIA ANDERSON [facility] [id number] [facility] 2021-05-09 13:15:00 2021-05-09 14:00:22 Routine Visit Siria Anderson [facility] SUPERVISOR [employer] [facility] & CHILD [facility] 1.20.114 350.1.13.10 4.2.7.2.686 [id number] 107 [id number] [facility] 2021-05-02 15:30:00 2021-05-02 15:58:07 Outpatient R SIRIA ANDERSON [facility] [id number] [facility] 2021-05-02 15:30:00 2021-05-02 15:58:07 Routine Visit Siria Anderson [facility] SUPERVISOR [employer] [facility] & CHILD [facility] 1.2.840.114 350.1.13.10 4.2.7.2.686 [id number] 107 [id number] [facility] 2021-05-02 00:00:00 2021-05-02 00:00:00 Abstract AndersonSiria [facility] SUPERVISOR [employer] AS[employer]BL[employer] [facility] & CHILD [facility] 1.2.840.114 350.1.13.10 4.2.7.2.686 [id number] 107 [id number] [facility] 2021-04-28 09:30:00 2021-04-28 10:00:00 Sustainability Coordinator Visit Ultrasound, Katelyn Whiting [facility] 1.2.840.114 350.1.13.10 4.2.7.2.686 [id number] [facility] 2021-04-28 09:30:00 2021-04-28 09:30:00 Outpatient P [facility] [id number] [facility] 2021-04-28 09:30:00 2021-04-28 09:30:00 Outpatient P [facility] [id number] [facility] 2021-04-28 09:30:00 2021-04-28 09:30:00 Outpatient P KATELYN CRUZ SHANNON [facility] [id number] [facility] 2021-04-25 15:30:00 2021-04-25 16:19:38 Outpatient R SIRIA ANDERSON [facility] [id number] [facility] 2021-04-25 15:30:00 2021-04-25 16:19:38 Routine Visit Justin Siria Stokes [facility] SUPERVISOR [employer] [facility] & CHILD [facility] .840.114 350.1.13.10 4.2.7.2.686 [id number] 107 [id number] [facility] 2021-04-25 15:30:00 2021-04-25 15:30:00 Outpatient R ANDERSON, SIRIA [facility] [id number] [facility] 2021-04-24 15:30:00 2021-04-24 15:30:00 Outpatient P [facility] [id number] [facility] 2021-04-21 00:00:00 2021-04-21 00:00:00 Telephone Siria Anderson [facility] SUPERVISOR [employer] ASSEMBLY [facility] CHILD [facility] .840.114 350.1.13.10 4.2.7.2.686 [id number] 107 [id number] [facility] 2021-04-19 13:15:00 2021-04-19 13:15:00 Outpatient R ANDERSON, SIRIA [facility] [id number] [facility] 2021-04-19 13:15:00 2021-04-19 13:15:00 Sustainability Coordinator Visit Lab, [facility] AndersonSiria [facility] SUPERVISOR [employer] [facility] & CHILD [facility] ..840.114 350.1.13.10 4.2.7.2.686 [id number] 107 [id number] [facility] 2021-04-19 13:00:00 2021-04-19 13:00:00 Outpatient P [facility] [id number] [facility] 2021-04-19 00:00:00 2021-04-19 00:00:00 Telephone AndersonSiria [facility] SUPERVISOR [employer] [facility] & CHILD [facility] ..840.114 350.1.13.10 4.2.7.2.686 [id number] [facility] 2021-04-18 15:30:00 2021-04-18 16:11:31 Outpatient SIRIA MAGANA [facility] [id number] [facility] 2021-04-18 15:30:00 2021-04-18 16:11:31 Routine Visit Siria Anderson Divya [facility] SUPERVISOR [employer] ASSEMBLY [facility] & CHILD [facility] 1..840.114 350.1.13.10 4.2.7.2.686 [id number] 107 [id number] [facility] 2021-04-18 15:30:00 2021-04-18 16:11:31 Outpatient SIRIA MAGANA [facility] [id number] [facility] 2021-04-18 15:30:00 2021-04-18 15:30:00 Outpatient R SIRIA ANDERSON [facility] [id number] [facility] 2021-04-11 13:00:00 2021-04-11 14:15:13 Outpatient R SIRIA ANDERSON [facility] [id number] [facility] 2021-04-11 13:00:00 2021-04-11 14:15:13 Outpatient R SIRIA ANDERSON [facility] [id number] [facility] 2021-04-11 13:00:00 2021-04-11 14:15:13 Routine Visit Siria Anderson Divya [facility] SUPERVISOR [employer]SEMBL[employer] [facility] & CHILD [facility] 1..840.114 350.1.13.10 4.2.7.2.686 [id number] 107 [id number] [facility] 2021-04-11 13:00:00 2021-04-11 13:00:00 Outpatient SIRIA MAGANA [facility] [id number] [facility] 2021-03-29 00:00:00 2021-03-29 00:00:00 Telephone AndersonSiria howard [facility] SUPERVISOR [employer] [facility] MATERNAL & CHILD [facility] 1.840.114 350.1.13.10 4.2.7.2.686 [id number] 107 [id number] [facility] 2021-03-22 14:30:00 2021-03-22 14:51:40 Outpatient R SIRIA ANDERSON [facility] [id number] [facility] 2021-03-22 14:30:00 2021-03-22 14:51:40 Routine Visit [facility] SUPERVIS[facility] [employer] [facility] & CHILD [facility] 1.0.114 350.1.13.10 4.2.7.2.686 [id number] 107 [id number] [facility] 2021-03-22 14:30:00 2021-03-22 14:30:00 Outpatient R SIRIA ANDERSON [facility] [id number] [facility] 2021-03-22 14:00:00 2021-03-22 14:30:00 Sustainability Coordinator Visit Ultrasound, Ang-m Siria Anderson [facility] SUPERVISOR [employer] [facility] & CHILD [facility] 1..114 350.1.13.10 4.2.7.2.686 [id number] [facility] 2021-03-22 00:00:00 2021-03-22 00:00:00 Abstract Siria Anderson [facility] SUPERVISOR [employer] [facility] MATERNAL & CHILD [facility] 1.840.114 350.1.13.10 4.2.7.2.686 [id number] 107 [id number] [facility] 2021-03-15 00:00:00 2021-03-15 00:00:00 Patient Secure Msg Siria Anderson [facility] SUPERVISOR [employer] [facility] & CHILD [facility] 1.840.114 350.1.13.10 4.2.7.2.686 [id number] [facility] 2021-03-14 00:00:00 2021-03-14 00:00:00 Siria Poole [facility] SUPERVISOR [employer] [facility] MATERNAL & CHILD [facility] 1.2.840.114 350.1.13.10 4.2.7.2.686 [id number] [facility] 2021-03-13 00:00:00 2021-03-13 00:00:00 Aaron Dykes [facility] SUPERVISOR [employer] [facility] MATERNAL & CHILD [facility] 1.2.840.114 350.1.13.10 4.2.7.2.686 [id number] [facility] 2021-03-13 00:00:00 2021-03-13 00:00:00 Siria Lechuga [facility] SUPERVISOR [employer] [facility] MATERNAL & CHILD [facility] 1.2.840.114 350.1.13.10 4.2.7.2.686 [id number] 107 [id number] [facility] 2021-03-10 00:00:00 2021-03-10 00:00:00 Siria Lechuga [facility] SUPERVISOR [employer] [facility] MATERNAL & CHILD [facility] 1.2.840.114 350.1.13.10 4.2.7.2.686 [id number] 107 [id number] [facility] 2021-03-10 00:00:00 2021-03-10 00:00:00 Aaron Dykes [facility] SUPERVISOR [employer] [facility] MATERNAL & CHILD [facility] 1.2.840.114 350.1.13.10 4.2.7.2.686 [id number] [facility] 2021-03-09 15:45:00 2021-03-09 16:18:23 Outpatient SIRIA MAGANA [facility] [id number] [facility] 2021-03-09 15:45:00 2021-03-09 16:18:23 Routine Visit Siria Anderson [facility] SUPERVIS[employer] [facility] & [facility]ILD [facility] 1.2.840.114 350.1.13.10 4.2.7.2.686 [id number] [facility] 2021-03-09 00:00:00 2021-03-09 00:00:00 Aaron Dykes [facility] SUPERVISOR [employer] [facility] & CHILD [facility] 1.2.840.114 350.1.13.10 4.2.7.2.686 [id number] [facility] 2021-03-09 00:00:00 2021-03-09 00:00:00 Siria Lechuga [facility] [employer]PER[employer] [facility] & CHILD [facility] 1.2.840.114 350.1.13.10 4.2.7.2.686 [id number] [facility] 2021-03-08 15:45:00 2021-03-08 15:45:00 Outpatient SIRIA MAGANA [facility] [id number] [facility] 2021-02-22 10:00:00 2021-02-22 11:57:26 Outpatient AARON BACK [facility] [id number] [facility] 2021-02-22 09:59:09 2021-02-22 11:57:26 Routine Visit Provider, Aaron Barlow [facility] [employer] [facility]ILD [facility] 1.2.840.114 350.1.13.10 4.2.7.2.686 [id number] [facility] 2021-02-13 10:52:00 2021-02-13 11:22:00 Sustainability Coordinator Visit Ultrasound, Silvana Ruff [facility] [employer] [facility] CHILD [facility] 1.0.114 350.1.13.10 4.2.7.2.686 [id number] [facility] 2021-02-13 10:45:00 2021-02-13 10:45:00 Outpatient SILVANA WESLEY SANGEETA [facility] [id number] [facility] 2021-02-13 00:00:00 2021-02-13 00:00:00 Case Management Bo Rivera [facility] [employer] [facility] 1..114 350.1.13.10 4.2.7.2.686 [id number] [facility] 2021-02-03 00:00:00 2021-02-03 00:00:00 Telephone Aaron Alicea [facility] [employer]PER[employer] [facility] CHILD [facility] 1..114 350.1.13.10 4.2.7.2.686 [id number] [facility] 2021-02-01 10:45:00 2021-02-01 11:09:09 Outpatient R BO RIVERA [facility] [id number] [facility] 2021-02-01 10:04:55 2021-02-01 11:09:09 Routine Visit Provider, Ang-Rmchp Bo Jorgensen [facility] [employer] [facility] & CHILD [facility] ..114 350.1.13.10 4.2.7.2.686 [id number] [facility] 2021-01-31 00:00:00 2021-01-31 00:00:00 Nguyễn Hess [facility] 1.84.114 350.1.13.10 4.2.7.2.686 [id number] [facility] 2021-01-30 00:00:00 2021-01-30 00:00:00 Telephone Aaron Alicea [facility] [employer] [facility] & [facility]ILD [facility] 1.2.840.114 350.1.13.10 4.2.7.2.686 [id number] [facility] 2021-01-29 00:00:00 2021-01-29 00:00:00 Refill Siria Anderson [facility] [employer] [facility] & [facility]ILD [facility] 1.2.840.114 350.1.13.10 4.2.7.2.686 [id number] [facility] 2021-01-29 00:00:00 2021-01-29 00:00:00 [facility]?GALILEAKing [facility] 1..840.114 350.1.13.10 4.2.7.2.686 [id number] [facility] 2021-01-19 14:40:00 2021-01-19 15:06:44 Outpatient R CASEY AMAYA [facility] [id number] [facility] 2021-01-19 14:22:57 2021-01-19 15:06:44 Urgent Care [facility]GALILE[facility]ing [facility] MED[facility] OFF[facility] BU[facility] 1..840.114 350.1.13.10 4.2.7.2.686 [id number] [facility] 2021-01-04 00:00:00 2021-01-04 00:00:00 Telephone Siria Anderson [facility] [employer]PER[employer] [facility] 1.2.840.114 350.1.13.10 4.2.7.2.686 [id number] [facility] 2021-01-03 00:00:00 2021-01-03 00:00:00 Telephone Siria Anderson [facility] SUPER[employer]OR [employer] [facility] & CHILD [facility] 1.2840.114 350.1.13.10 4.2.7.2.686 [id number] [facility] 2021-01-03 00:00:00 2021-01-03 00:00:00 Telephone Siria Anderson [facility] [employer]PER[employer] [facility]ILD [facility] 1.2.840.114 350.1.13.10 4.2.7.2.686 [id number] [facility] 2021-01-02 10:45:39 2021-01-02 11:10:03 Routine Visit Provider, Aaron Barlow [facility] [employer] [facility] 1.2840.114 350.1.13.10 4.2.7.2.686 [id number] [facility] 2021-01-02 10:45:00 2021-01-02 10:45:00 Outpatient R [facility] [id number] [facility] 2020-12-21 10:52:25 2020-12-21 11:26:21 Office Visit Palmira Phillips Joseph [facility] 1.0.114 350.1.13.10 4.2.7.2.686 [id number] [facility] 2020-12-21 10:30:00 2020-12-21 10:30:00 Outpatient P [facility] [id number] [facility] 2020-12-19 08:20:30 2020-12-19 09:35:30 Sustainability Coordinator Visit Ultrasound, Gianni Virk [facility] [employer]PER[employer]OR [employer] [facility]ILD [facility] 1.2840.114 350.1.13.10 4.2.7.2.686 [id number] [facility] 2020-12-19 08:00:00 2020-12-19 08:00:00 Outpatient P [facility] [id number] [facility] 2020-12-19 00:00:00 2020-12-19 00:00:00 Abstract Siria Anderson [facility] SUPER[employer]OR [employer] [facility] 1.2.840.114 350.1.13.10 4.2.7.2.686 [id number] [facility] 2020-12-07 00:00:00 2020-12-07 00:00:00 Telephone Siria Anderson [facility] SUPER[employer]OR [employer] [facility] 1.2.840.114 350.1.13.10 4.2.7.2.686 [id number] [facility] 2020-12-05 10:15:59 2020-12-05 10:54:56 Routine Visit Siria Anderson [facility] SUPERVISOR [employer] [facility] 1.2.840.114 350.1.13.10 4.2.7.2.686 [id number] [facility] 2020-12-05 10:15:59 2020-12-05 10:54:56 Routine Visit Siria Anderson [facility] SUPERVISOR [employer] [facility] 1.2.840.114 350.1.13.10 4.2.7.2.686 [id number] [facility] 2020-12-05 10:15:00 2020-12-05 10:15:00 Outpatient R MONTSE ANDERSONSTEPHANIE [facility] [id number] [facility] 2020-11-07 08:42:18 2020-11-07 09:41:48 Routine Visit Anette Andersonking [facility] SUPERVISOR [employer] [facility] 1.2.840.114 350.1.13.10 4.2.7.2.686 [id number] [facility] 2020-11-07 08:45:00 2020-11-07 08:45:00 Outpatient R SIRIA ANDERSON [facility] [id number] [facility] 2020-11-01 00:00:00 2020-11-01 00:00:00 Telephone AndersonSiria [facility] SUPERVISOR [employer] [facility] 1.2.840.114 350.1.13.10 4.2.7.2.686 [id number] [facility] 2020-10-27 00:00:00 2020-10-27 00:00:00 Patient Secure Msg Doctor Unassigned, [place] [facility] SUPERVISOR [employer] [facility] 1.2840.114 350.1.13.10 4.2.7.2.686 [id number] [facility] 2020-10-27 00:00:00 2020-10-27 00:00:00 Telephone JustinSiria [facility] SUPERVISOR [employer] AS[employer] [facility] CHILD [facility] 1.2840.114 350.1.13.10 4.2.7.2.686 [id number] [facility] 2020-10-26 00:00:00 2020-10-26 00:00:00 Telephone AndersonSiria [facility] SUPERVISOR [employer] [facility] CHILD [facility] 1.2840.114 350.1.13.10 4.2.7.2.686 [id number] [facility] 2020-10-19 13:59:38 2020-10-19 14:29:38 Sustainability Coordinator Visit Ultrasound, Cristin Jones [facility] SUPERVISOR [employer] [facility] 1.2840.114 350.1.13.10 4.2.7.2.686 [id number] [facility] 2020-10-19 14:00:00 2020-10-19 14:00:00 Outpatient P [facility] [id number] [facility] 2020-10-19 00:00:00 2020-10-19 00:00:00 Abstract Siria Anderson [facility] SUPERVISOR [employer] [facility] 1.840.114 350.1.13.10 4.2.7.2.686 [id number] [facility] 2020-10-10 08:57:06 2020-10-10 09:57:15 Initial Visit Siria Anderson [facility] SUPERVISOR [employer] [facility] 1.840.114 350.1.13.10 4.2.7.2.686 [id number] [facility] 2020-10-10 08:30:00 2020-10-10 08:30:00 Outpatient R [facility] [id number] [facility] 2020-10-10 00:00:00 2020-10-10 00:00:00 Orders Only Doctor Unassigned, [place] [facility] 1.840.114 350.1.13.10 4.2.7.2.686 [id number] [facility] 2020-06-24 16:00:00 2020-06-24 16:00:00 Outpatient R JULISSA MICHELE [facility] [id number] [facility] 2020-06-24 11:27:53 2020-06-24 11:49:24 Office Visit Julissa Michele [facility] 1.840.114 350.1.13.10 4.2.7.2.686 [id number] [facility] 2020-06-24 11:00:00 2020-06-24 11:00:00 Outpatient R JULISSA MICHELE [facility] [id number] [facility] 2020-06-14 00:00:00 2020-06-14 00:00:00 Patient Outreach Anthony Rejidavid Brandon [facility] 1.2840.114 350.1.13.10 4.2.7.2.686 [id number] [facility] 2020-06-08 19:38:00 2020-06-09 12:50:00 Emergency Ann, Emma [place], Zoe Michele, Julissa Nunez [facility] 1.2840.114 350.1.13.10 4.2.7.2.686 [id number] [facility] 2020-06-08 18:59:31 2020-06-08 19:19:31 Urgent Care Provider, [facility] Saadia Lovett [facility] 1.840.114 350.1.13.10 4.2.7.2.686 [id number] [facility] 2020-06-08 18:40:00 2020-06-08 18:40:00 Outpatient R SAADIA LOVETT [facility] [id number] [facility] 2020-05-24 13:16:03 2020-05-24 14:05:26 [facility] 1.84.114 350.1.13.10 4.2.7.2.686 [id number] [facility] 2020-05-24 13:00:00 2020-05-24 13:00:00 Outpatient R NIA NELSONTANY [facility] [id number] [facility] 2020-05-19 13:00:00 2020-05-19 13:00:00 Outpatient YOVANY ODONNELL [facility] [id number] [facility] 2020-05-19 00:00:00 2020-05-19 00:00:00 Orders Only Doctor Unassigned, [place] [facility] 1.2.840.114 350.1.13.10 4.2.7.2.686 [id number] [facility] 2020-03-28 19:14:32 2020-03-28 19:51:[address] [facility] 1.2.840.114 350.1.13.10 4.2.7.2.686 [id number] [facility] 2020-03-28 19:20:00 2020-03-28 19:20:00 Outpatient R [facility] [id number] [facility] 2020-03-28 00:00:00 2020-03-28 00:00:00 Letter (Out) Doctor Unassigned, [place] [facility] 1.2.840.114 350.1.13.10 4.2.7.2.686 [id number] [facility] 2020-01-15 08:15:00 2020-01-15 08:15:00 Outpatient R RACQUEL [facility] [id number] [facility] 2019-03-12 14:26:14 2019-03-12 23:59:00 Outpatient RACQUEL [facility] [id number] [facility] Results Test Description Test Time Test Comments Results Result Co mments Source [facility] ONLY - SYPHILIS [id number] 16:24:15* Test Item Value Reference Range Interpretation Comme nts Syphilis IgG/IgM (test code = 15688-2) Non-reactive Non-reactive VASHTI (test code = VASHTI) Non-reactive - No serologic evidence of T. pallidum infection. Cannot exclude incubating or early syphilis. Submit a second specimen in 2-4 weeks if syphilis is clinically suspected. Equivocal - Further testing to follow. Reactive - Further testing to follow. Lab Interpretation (test code = 72935-3) Normal [facility] ONLY - SYPHILIS [id number] 16:24:15* Test Item Value Reference Range Interpretation Comme nts Syphilis IgG/IgM (test code = 23579-6) Non-reactive Non-reactive VASTHI (test code = VASHTI) Non-reactive - No serologic evidence of T. pallidum infection. Cannot exclude incubating or early syphilis. Submit a second specimen in 2-4 weeks if syphilis is clinically suspected. Equivocal - Further testing to follow. Reactive - Further testing to follow. Lab Interpretation (test code = 67871-4) [facility] 07:09:19* Test Item Value Reference Range Interpretation Comme nts HGB A1C (test code = 4548-4) 5.3 % 4.0-5.7 VASHTI (test code = VASHTI) Reference RangesNormal: <5.7%Prediabetes: 5.7 - 6.4%Diabetes: > 6.5% Lab Interpretation (test code = 60424-3) Normal [facility]2022-10-03 07:09:19* Test Item Value Reference Range Interpretation Comme nts HGB A1C (test code = 4548-4) 5.3 % 4.0-5.7 VASHTI (test code = VASHTI) Reference RangesNormal: <5.7%Prediabetes: 5.7 - 6.4%Diabetes: > 6.5% Lab Interpretation (test code = 43339-3) Normal [facility] 1/2 AG-AB WITH [id number] 06:09:39* Test Item Value Reference Range Interpretation Comme nts HIV Semi-quantitative (test code = 73284-9) 0.09 Negative VASHTI (test code = VASHTI) Non-reactive for HIV-1 antigen and HIV-1/HIV-2 antibodies. ?No laboratory evidence of HIV infection. ?Repeat in 2-4 weeks if acute HIV infection is suspected. [facility] [id number] 06:09:39* Test Item Value Reference Range Interpretation Comme nts HCV Ab (test code = 51897-6) Negative HCV Semi-Quantitative (test code = 50952-6) 0.03 [facility] 1/2 AG-AB WITH [id number] 06:09:39* Test Item Value Reference Range Interpretation Comme nts HIV Semi-quantitative (test code = 25227-1) 0.09 Negative VASHTI (test code = VASHTI) Non-reactive for HIV-1 antigen and HIV-1/HIV-2 antibodies. ?No laboratory evidence of HIV infection. ?Repeat in 2-4 weeks if acute HIV infection is suspected. [facility] [id number] 06:09:39* Test Item Value Reference Range Interpretation Comme nts HCV Ab (test code = 43591-2) Negative HCV Semi-Quantitative (test code = 30137-4) 0.03 [facility] WITH [id number] 05:35:17* Test Item Value Reference Range Interpretation [...] 31.7 g/dL 31.6-35.1 RDW-SD (test code = 34072-6) 38.7 fL 39.0-49.9 L RDW-CV (test code = 788-0) 13.0 % 12.0-15.5 PLT (test code = 777-3) 442 See_Comment H [Automated messa ge] The system which generated this result transmitted reference range: 166 - 358 10*3/?L. The reference range was not used to interpret this result as normal/abnormal. MPV (test code = 84628-4) 10.9 fL 9.5-12.9 NRBC/100 WBC (test code = 6022736346) 0.0 See_Comment [Automated me ssage] The system which generated this result transmitted reference range: 0.0 - 10.0 /100 WBCs. The reference range was not used to interpret this result as normal/abnormal. NRBC x10^3 (test code = 6379626395) See_Comment [Automated messa ge] The system which generated this result transmitted reference range: 10*3/?L. The reference range was not used to interpret this result as normal/abnormal. GRAN MAT (NEUT) % (test code = 770-8) 61.3 % IMM GRAN % (test code = 3573175365) 0.20 % LYMPH % (test code = 736-9) 32.8 % MONO % (test code = 5905-5) 4.5 % EOS % (test code = 713-8) 0.9 % BASO % (test code = 706-2) 0.3 % GRAN MAT x10^3(ANC) (test code = 5107623279) 6.11 10*3/uL 1.88-7.09 IMM GRAN x10^3 (test code = 0540979236) 0.00-0.06 LYMPH x10^3 (test code = 731-0) 3.27 10*3/uL 1.32-3.29 MONO x10^3 (test code = 742-7) 0.45 10*3/uL 0.33-0.92 EOS x10^3 (test code = 711-2) 0.09 10*3/uL 0.03-0.39 BASO x10^3 (test code = 704-7) 0.03 10*3/uL 0.01-0.07 Lab Interpretation (test code = 58802-3) Abnormal [facility] WITH [id number] 05:35:17* Test Item Value Reference Range Interpretation Comme nts WBC (test code = 6690-2) 9.97 See_Comment [Automated messa ge] The system which generated this result transmitted reference range: 4.30 - 11.10 10*3/?L. The reference range was not used to interpret this result as normal/abnormal. RBC (test code = 789-8) 5.20 See_Comment [Automated [employer] ge] The system which generated this result [...] 31.7 g/dL 31.6-35.1 RDW-SD (test code = 76767-8) 38.7 fL 39.0-49.9 L RDW-CV (test code = 788-0) 13.0 % 12.0-15.5 PLT (test code = 777-3) 442 See_Comment H [Automated [employer]] The system which generated this result transmitted reference range: 166 - 358 10*3/?L. The reference range was not used to interpret this result as normal/abnormal. MPV (test code = 92013-0) 10.9 fL 9.5-12.9 NRBC/100 WBC (test code = 7147750954) 0.0 See_Comment [Automated [employer] ssage] The system which generated this result transmitted reference range: 0.0 - 10.0 /100 WBCs. The reference range was not used to interpret this result as normal/abnormal. NRBC x10^3 (test code = 6850704944) See_Comment [Automated [employer]] The system which generated this result transmitted reference range: 10*3/?L. The reference range was not used to interpret this result as normal/abnormal. GRAN MAT (NEUT) % (test code = 770-8) 61.3 % IMM GRAN % (test code = 1113266356) 0.20 % LYMPH % (test code = 736-9) 32.8 % MONO % (test code = 5905-5) 4.5 % EOS % (test code = 713-8) 0.9 % BASO % (test code = 706-2) 0.3 % GRAN MAT x10^3(ANC) (test code = 0940308950) 6.11 10*3/uL 1.88-7.09 IMM GRAN x10^3 (test code = 2011834061) 0.00-0.06 LYMPH x10^3 (test code = 731-0) 3.27 10*3/uL 1.32-3.29 MONO x10^3 (test code = 742-7) 0.45 10*3/uL 0.33-0.92 EOS x10^3 (test code = 711-2) 0.09 10*3/uL 0.03-0.39 BASO x10^3 (test code = 704-7) 0.03 10*3/uL 0.01-0.07 Lab Interpretation (test code = 77842-4) Abnormal [facility] [id number] 16:35:00* Test Item Value Reference Range Interpretation Comme nts POCT PREG (test code = 1605) Negative On board controls acceptable with C Line (test code = 3574) Yes POCT PREG LOT # (test code = 3575) POCT PREG TEST DATE ( test code = 3576) [facility] [id number] 16:35:00* Test Item Value Reference Range Interpretation Comme nts POCT PREG (test code = 1605) Negative On board controls acceptable with C Line (test code = 3574) Yes POCT PREG LOT # (test code = 3575) POCT PREG TEST DATE ( test code = 3576) [facility] [id number] 15:41:00* Test Item Value Reference Range Interpretation Comme nts POCT PREG (test code = 1605) Negative On board controls acceptable with C Line (test code = 3574) Yes POCT PREG LOT # (test code = 3575) POCT PREG TEST DATE ( test code = 3576) [facility] [id number] 15:41:00* Test Item Value Reference Range Interpretation Comme nts POCT PREG (test code = 1605) Negative On board controls acceptable with C Line (test code = 3574) Yes POCT PREG LOT # (test code = 3575) POCT PREG TEST DATE ( test code = 3576) [facility] [id number] 15:41:00* Test Item Value Reference Range Interpretation Comme nts POCT PREG (test code = 1605) Negative On board controls acceptable with C Line (test code = 3574) Yes POCT PREG LOT # (test code = 3575) POCT PREG TEST DATE ( test code = 3576) [facility] [id number] 15:41:00* Test Item Value Reference Range Interpretation Comme nts POCT PREG (test code = 1605) Negative On board controls acceptable with C Line (test code = 3574) Yes POCT PREG LOT # (test code = 3575) POCT PREG TEST DATE ( test code = 3576) [facility] [id number] 15:41:00* Test Item Value Reference Range Interpretation Comme nts POCT PREG (test code = 1605) Negative On board controls acceptable with C Line (test code = 3574) Yes POCT PREG LOT # (test code = 3575) POCT PREG TEST DATE ( test code = 3576) [facility]OL2022-[facility]-10 16:42:23 ALCOHOL<10mg/dL03/03/2022 10:42 AM [facility]<10 [id number] Toxic>100 Depression of HIDE TRIMMER>400 Fatalities ReportedHouston [facility] HospitalBASI METABOLIC PANEL (NA, K, CL, CO2, GLUCOSE, BUN, CREATININE, CA)2022-03-03 16:23:10* Test Item Value Reference Range Interpretation Comme nts NA (test code = 3346319837) 138 mmol/L 135-145 K (test code = 5233090145) 3.9 mmol/L 3.5-5.0 CL (test code = 4498268578) 106 mmol/L 98-108 CO2 TOTAL (test code = 4974466333) 24 mmol/L 23-31 AGAP (test code = 7737769844) 2-16 BUN (test code = 2066541748) 11 mg/dL 7-23 GLUCOSE (test code = 2649831799) 95 mg/dL 70-110 CREATININE (test code = 5101435955) 0.62 mg/dL 0.50-1.04 CALCIUM (test code = 0595878018) 9.4 mg/dL 8.6-10.6 eGFR (test code = 7037512131) mL/min/1.73m2 VASHTI (test code = VASHTI) Association [...] or urine or abnormalities in imaging tests). [facility] WITH [id number] 16:19:13* Test Item Value Reference Range Interpretation Comme nts WBC (test code = 6690-2) See_Comment [Automated [employer]] The system which generated this result transmitted reference range: 4.30 - 11.10 10*3/?L. The reference range was not used to interpret this result as normal/abnormal. RBC (test code = 789-8) See_Comment [Automated [employer]] The system which generated this result transmitted [...] 32.8 g/dL 31.6-35.1 RDW-SD (test code = 57564-7) 38.5 fL 39.0-49.9 L RDW-CV (test code = 788-0) 12.9 % 12.0-15.5 PLT (test code = 777-3) See_Comment [Automated messa ge] The system which generated this result transmitted reference range: 166 - 358 10*3/?L. The reference range was not used to interpret this result as normal/abnormal. MPV (test code = 71190-9) 10.2 fL 9.5-12.9 NRBC/100 WBC (test code = 1401591883) See_Comment [Automated [employer] ssage] The system which generated this result transmitted reference range: 0.0 - 10.0 /100 WBCs. The reference range was not used to interpret this result as normal/abnormal. NRBC x10^3 (test code = 2900390226) See_Comment [Automated messa ge] The system which generated this result transmitted reference range: 10*3/?L. The reference range was not used to interpret this result as normal/abnormal. GRAN MAT (NEUT) % (test code = 770-8) 54.2 % IMM GRAN % (test code = 3083803046) 0.30 % LYMPH % (test code = 736-9) 39.1 % MONO % (test code = 5905-5) 5.1 % EOS % (test code = 713-8) 1.2 % BASO % (test code = 706-2) 0.1 % GRAN MAT x10^3(ANC) (test code = 3179748076) 3.94 10*3/uL 1.88-7.09 IMM GRAN x10^3 (test code = 2010689151) 0.00-0.06 LYMPH x10^3 (test code = 731-0) 2.84 10*3/uL 1.32-3.29 MONO x10^3 (test code = 742-7) 0.37 10*3/uL 0.33-0.92 EOS x10^3 (test code = 711-2) 0.09 10*3/uL 0.03-0.39 BASO x10^3 (test code = 704-7) 0.01-0.07 Lab Interpretation (test code = 80192-9) Abnormal [facility] [id number] 20:48:00* Test Item Value Reference Range Interpretation Comme nts POCT PREG (test code = 1605) Negative On board controls acceptable with C Line (test code = 3574) Yes POCT PREG LOT # (test code = 3575) POCT PREG TEST DATE ( test code = 3576) [facility] URINALYSIS W SPECIFIC [id number] 22:32:00* Test Item Value Reference Range Interpretation [...] development and interpretation of all internal controls [facility] URINALYSIS W SPECIFIC [id number] 22:32:00* Test Item Value Reference Range Interpretation [...] [facility] of all internal [id number]:36:[facility]* Test Item Value Reference Range Interpretation Comme nts POCT PREG (test code = 1605) Negative On board controls acceptable with C Line (test code = 3574) Yes POCT PREG LOT # (test code = 3575) POCT PREG TEST DATE ( test code = 3576) [facility] Notes Date/Time Note Provider Source 2022-12-05 10:12:02 [id number]:12:02F ormatting of this note might be different from the original.Called to speak with Eliezer in [place]. They state they did not ever get the prescription. Contacted the patient and she also has not received the prescription. She is requesting they be resent to [facility] in [place]. Re-ordered original prescription and sent to [facility] per patient request. [id number] encounter [id number]:14:39Telephone encounter NoteTXT1.2.840.087879.1.13.104.2.7.2.7 13999|[id number] for patient [id number] QDQFVUNDZAYOPCXBMYRG6416-10-54A25:14:3 91.2.840.727201.1.72.3.15|1.2.840.1143 [id number] [facility] 2022-12-04 18:01:37 9879-58-28N98:01:37F ormatting of this note might be different from the original.Thao Lang is a 27 year old femaleT[facility] wanting the prescriptions transferred. Please advise azelastine 137 mcg (0.1 %) nasal fhdkmsujgcnogxpktovq-hjvvuzyckykkdye-Y M (BROMFED DM) 2-30-10 mg/5 mL syrupfluticasone propionate 50 mcg/actuation nasal spraymethylPREDNISolone (MEDROL, KRISTA,) 4 mg tabletsPAR[facility] [place], [place] - [address] [place] [address] & [facility] [address]Zewjp: [phone] Nmfrbrbploupdm signed by Nate Mcleod at 12/04/2022 6:02 PM [id number] encounter [id number]:02:30Telephone encounter [id number] for patient [id number] EdenUT[address] Berry [id number] UAEIMQDLECTQDXSFEVGM6682-20-01E78:02:3 [id number]|[id number] [id number] [facility]"
--- NOTE | 2023-09-14 13:43 | ER ---
Nurse's Notes [facility] Name: Thao Lang Age: 28 yrs Sex: Female : 1995 Arrival Date: 09/14/2023 Time: 13:26 Bed 12 [facility] MD: Diagnosis: ED Course: 09/13 13:29 Patient arrived in ED. mg5 Administered Medications: No medications were administered Outcome: 13:43 Patient left the ED. ld1 Signatures: Jane Geiger RN RN ld1 Melissa Galeas mg5
== END 2023-09-14 13:43 | disposition left against medical advice (07) ==
LOC: ER 13:26
DX: Z02.9 Encounter for administrative examinations, unspecified (principal)

== ENCOUNTER 2023-12-29 10:51 | Emergency (ER) | payer OTHER ==
--- OUTSIDE RECORDS SUMMARY | 2023-12-29 10:57 | XMS REPORT | Continuity of Care Document ---
Author Name Unknown Address [address] [facility] [address] [place] [address] [facility] thconnect Address [address] [place] [address] [address] [place] [address] Care Team Providers Care Lie Detector Operator Name Role Phone ESTEVAN ADAMS Primary Care Physician YAN Hyde Attending Clinician Unavailable ESTEVAN ADAMS Attending Clinician Unavail OMKAR Barkley Attending Clinician OMKAR Bender Attending Clinician JULISSA Marti Attending Clinician Unavailable JENNIFER PURI Attending Clinician Unavaila ble GC_GCBZW_Kadiyala_S Attending Clinician Unavaila Estevan Villalobos Attending Clinician + Jessika Manrique MD Attending Clinician [phone] JESSIKA MANRIQUE Attending Clinician Unavailable Unknown, Attending Attending Clinician UnavailJennifer Limon CNM Attending Clinician [phone] Doctor Unassigned, [place] Attending Clinician U SIRIA Dugan Attending Clinician Unavailab TIANA Argueta Attending Clinician Unavailable Tiana Antonio MD Attending Clinician [phone] Visit, [facility] Nurse Attending Clinician Siria Miller Attending Clinician [phone] Jenna LARRY, Maisha Attending Clinician Unavailable EASTON RIOJAS Attending Clinician Unavailable Nurse, Naun Rmchp Exp Cprit Obgyn Attending Clini luis felipe Unavailable JODEE ALMAZAN Attending Clinician Unavailable King MARC, Jodee Suarez Attending Clinician [phone] Jim MARC, Zbigniew French Attending Clinician + [phone] Mariluz MARC, Glen Attending Clinician [phone] Leonel Mason MD Attending Clinician [phone] Ultrasound, Ang-Mfm Attending Clinician Unavaila lisa Cruz MD, Katelyn French Attending Clinician + [phone] KATELYN CRUZ Attending Clinician Unavailable KATELYN CRUZ Attending Clinician Unavailable Lab, Ang-Rmchp Attending Clinician Unavailable Yelena WHCNP, Aaron Strong Attending Clinician + AARON ALICEA Attending Clinician Unavail able Provider, [facility]Rmch[facility] Temp Attending Clinician Dalila Silvaan Whitehead MD Attending Clinician [phone] SILVANA VENEGAS Attending Clinician Unavailable SILVANA VENEGAS Attending Clinician Unavailable Sukhjinder HEAD CHARRER, Bo Hunt Attending Clinician [phone] BO RIVERA Attending Clinician Unavailyahaira Adhikari HEAD CHARRER, Nguyễn Attending Clinician [phone] AMAYA GURROLA Attending Clinician Unavailable Casey HEAD CHARRER, Amaya Attending Clinician [phone] Palmira Phillips Attending Clinician Unavailyahaira Escoto MD, Yair Borjas Attending Clinician [phone] Gianni Whitaker MD Attending Clinician [phone] Robbie Wolfe MD, Cristin Attending Clinician + Julissa Michele MD Attending Clinician [phone] Reji Cruz DO Attending Clinician [phone] Seth HEAD CHARRER, Emma Attending Clinician + [phone] Zoe Toledo MD Attending Clinician [phone] Provider, [facility] Attending Clinician Un available Saadia Arce Attending Clinician SAADIA LOVETT Attending Clinician Unavailable Delano Islas Attending Clinician [phone] DELANO HANKINS Attending Clinician UnavailYOVANY Barnhart Attending Clinician Unavailable JAIME CLEEMNT Attending Clinician Unavailable [email or web address]_Kadiyala_S Admitting Clinician UnavailJODEE León Admitting Clinician Unavailable Jodee Almazan MD Admitting Clinician Julissa Michele MD Admitting Clinician [phone] Payers Payer Name Policy Type Policy Number Effective Date Expirati on Date Source [employer] [place] [employer] [id number] 2016 00:00:00 [facility] [id number] 2023 00:00:00 [place] [employer] [id number] 2022 00:00:00 MEDICAID PENDING PENDING 2020 00:00:00 Problems Condition Name Condition Details Condition Category Status Onset Date Resolution Date Last Treatment Date Treating Clinician Comments Source Presence of intrauteri ne contracept yamila device Presence of intrauteri ne contracept yamila device Disease Active 7- 00:00: 00 [facility] History of abnormal cervical Pap smear History of abnormal cervical Pap smear Disease Active - 00:00: 00 Overview: Formattin g of this note might be different from the original. 09/2020 [facility] Folliculit is Folliculit is Disease Active 4-12 00:00: 00 [facility] Flu vaccine need Flu vaccine need Disease Active 3-30 00:00: 00 [facility] Vaginal lesion Vaginal lesion Disease Active 3-30 00:00: 00 [facility] Research study patient Research study patient Disease Active 2-16 00:00: 00 Overview: Formattin g of this note might be different from the original. PACT (fellow) [facility] Elevated blood-pres sure reading, without diagnosis of hypertensi on Elevated blood-pres sure reading, without diagnosis of hypertensi on Disease Active 2-15 00:00: 00 [facility] COVID COVID Disease Active 2-01 00:00: 00 [facility] GBS (group B Streptococ cus carrier), +RV culture, currently GBS (group B Streptococ cus carrier), +RV culture, currently Disease Active 1-27 00:00: 00 Overview: Formattin g of this note might be different from the original. Address in labor and delivery. [facility] Upper respirator y symptom Upper respirator y symptom Disease Active 1-18 00:00: 00 [facility] Anemia of mother in , antepartum Anemia of mother in , antepartum Disease Active 2020-03 2-16 00:00: 00 [facility] Abnormal quad screen Abnormal quad screen Disease Active 2020-03 2-16 00:00: 00 [facility] Abnormal glandular Papanicola ou smear of cervix Abnormal glandular Papanicola ou smear of cervix Disease Active 8-04 00:00: 00 Overview: Formattin g of this note might be different from the original. LGSIL on 2020 pap smear, needs repeat in 12 months [facility] Supervisio n of high risk in third trimester Supervisio n of high risk in third trimester Disease Active 7- 00:00: 00 [facility] SAB (spontaneo us ) SAB (spontaneo us ) Disease Active 7 00:00: 00 [facility] in first trimester with history of ectopic in first trimester with history of ectopic Disease Active 7- 00:00: 00 [facility] Primigravi da in third trimester Primigravi da in third trimester Disease Active 7 00:00: 00 [facility] BMI 45.0-49.9, adult BMI 45.0-49.9, adult Disease Active 7-19 00:00: 00 [facility] History of ectopic History of ectopic Disease Active 4-02 00:00: 00 [facility] Screening examinatio n for STD (sexually transmitte d disease) Screening examinatio n for STD (sexually transmitte d disease) Disease Active 05-10 00:00: 00 [facility] Morbid obesity Morbid obesity Disease Active 1-06 00:00: 00 [facility] Allergies, Adverse Reactions, Alerts Allergy Name Allergy Type Status Severity Reaction(s) Onset Date Inactive Date Treating Clinician Comments Source NO KNOWN ALLERGIE S Drug Class Active [facility] Social History Social Habit Start Date Stop Date Quantity Comments Source History SDOH Alcohol Frequency [facility] History SDOH Alcohol [facility]inks [facility] History SDOH Alcohol Binge [facility] Alcohol intake 2022-12-02 00:00:00 2022-12-02 00:00:00 Current drinker of alcohol (finding) [facility] History of Social function 2022-12-02 00:00:00 2022-12-02 00:00:00 [facility] Alcohol Comment 2022-10-02 00:00:00 2022-10-02 00:00:00 occasional [facility] Exposure to SARS-CoV-2 (event) 2022-04-20 00:00:00 2022-04-30 10:31:00 Not sure [facility] Tobacco use and exposure 2021-12-06 00:00:00 2021-12-06 00:00:00 Smokeless tobacco non-user [facility] Sex Assigned At 1995 00:00:00 1995 00:00:00 [facility] Smoking Status Start Date Stop Date Source Never smoked tobacco [facility] Medications Ordered Medication Name Filled Medication Name Start Date Stop Date Current Medication? Ordering Clinician Indication Dosage Frequency Signature (SIG) Comments Components Source azelastine 137 mcg (0.1 %) nasal spray -13 00:00: 00 Yes [id number] 1{spray } Use 1 Wolf in each nostril in the morning and 1 Wolf in the evening. Use in each nostril as directed [facility] bromphenira mine-pseudo ephedrine-D M (BROMFED DM) 2-30-10 mg/5 mL syrup 12-05 00:00: 00 Yes [id number] 10mL Take 10 mL by mouth 4 (four) times daily as needed for Congestion /Allergies , Cough or Cold symptoms. [facility] fluticasone propionate 50 mcg/actuati on nasal spray 12-05 00:00: 00 Yes [id number] 1{spray } Use 1 Wolf in each nostril in the morning. [facility] methylPREDN ISolone (MEDROL, KRISTA,) 4 mg tablets 12-05 00:00: 00 Yes [id number] Take by mouth SEE-INSTRU CTIONS. follow package directions [facility] bromphenira mine-pseudo ephedrine-D M (BROMFED DM) 2-30-10 mg/5 mL syrup 12-02 00:00: 00 Yes [id number] 10mL Take 10 mL by mouth 4 (four) times daily as needed for Congestion /Allergies , Cough or Cold symptoms. [facility] azelastine 137 mcg (0.1 %) nasal spray 12-02 00:00: 00 Yes [id number] 1{spray } Use 1 Wolf in each nostril in the morning and 1 Wolf in the evening. Use in each nostril as directed [facility] fluticasone propionate 50 mcg/actuati on nasal spray 12-02 00:00: 00 Yes [id number] 1{spray } Use 1 Wolf in each nostril in the morning. [facility] methylPREDN ISolone (MEDROL, KRISTA,) 4 mg tablets 12-02 00:00: 00 Yes [id number] Take by mouth SEE-INSTRU CTIONS. follow package directions [facility] metroNIDAZO LE 500 mg tablet 10-04 00:00: 00 10-05 04:59 :00 No [id number] 2000mg Take 4 tablets by mouth once now for 1 dose. [facility] copper (PARAGARD T 380A) IUD 1 Intra Uterine Device 2-06 17:45: 00 04-30 17:01 :00 No [id number] 1{IUD} [facility] amoxicillin -clavulanat e (AUGMENTIN) 875-125 mg per tablet 2021-03 00:00: 00 02-01 05:59 :00 No [id number] 1{tbl} Take 1 tablet by mouth in the morning and 1 tablet in the evening. Do all this for 7 days. [facility] phenazopyri dine 100 mg tablet 2021-03 00:00: 00 01-27 04:59 :00 No [id number] 200mg Take 2 tablets by mouth in the morning and 2 tablets at noon and 2 tablets in the evening. Do all this for 2 days. [facility] levonorgest rel-ethinyl estradiol (SRONYX) 0.1-20 mg-mcg per tablet 12-06 00:00: 00 10-02 00:00 :00 No [id number] 1{tbl} Take 1 tablet by mouth in the morning. [facility] ondansetron 4 mg disintegrat ing tablet 07-03 00:00: 00 10-02 00:00 :00 No [id number] 4mg Take 1 tablet by mouth every 8 (eight) hours as needed for Nausea and Vomiting (N/V). [facility] norethindro ne 0.35 mg tablet 330 00:00: 00 10-02 00:00 :00 No [id number] 1{tbl} Take 1 tablet by mouth daily. [facility] Immunizations Ordered Immunization Name Filled Immunization Name Date Status Comments Source HPV9 2021-05-17 00:00:00 Completed [facility] HPV9 2021-05-17 00:00:00 Completed [facility] HPV9 2021-05-17 00:00:00 Completed [facility] HPV9 2021-05-17 00:00:00 Completed [facility] 2021-05-17 00:00:00 Completed [facility] 2021-05-17 00:00:00 Completed [facility] HPV9 2021-05-17 00:00:00 Completed [facility] HPV9 2021-05-17 00:00:00 Completed [facility] HPV9 2021-05-17 00:00:00 Completed [facility] HPV9 2021-05-17 00:00:00 Completed [facility] HPV9 2021-05-17 00:00:00 Completed [facility] HPV9 2021-05-17 00:00:00 Completed [facility] HPV9 2021-05-17 00:00:00 Completed [facility] HPV9 2021-05-17 00:00:00 Completed [facility] HPV9 2021-05-17 00:00:00 Completed [facility] HPV9 2021-05-17 00:00:00 Completed [facility] HPV9 2021-05-17 00:00:00 Completed [facility] HPV9 2021-05-17 00:00:00 Completed [facility] HPV9 2021-05-17 00:00:00 Completed [facility] HPV9 2021-05-17 00:00:00 Completed [facility] TDAP 2021-02-22 00:00:00 Completed [facility] TDAP 2021-02-22 00:00:00 Completed [facility] TDAP 2021-02-22 00:00:00 Completed [facility] TDAP 2021-02-22 00:00:00 Completed [facility] TDAP 2021-02-22 00:00:00 Completed [facility] TDAP 2021-02-22 00:00:00 Completed [facility] TDAP 2021-02-22 00:00:00 Completed [facility] TDAP 2021-02-22 00:00:00 Completed [facility] TDAP 2021-02-22 00:00:00 Completed [facility] TDAP 2021-02-22 00:00:00 Completed [facility] TDAP 2021-02-22 00:00:00 Completed [facility] TDAP 2021-02-22 00:00:00 Completed [facility] TDAP 2021-02-22 00:00:00 Completed [facility] TDAP 2021-02-22 00:00:00 Completed [facility] TDAP 2021-02-22 00:00:00 Completed [facility] TDAP 2021-02-22 00:00:00 Completed [facility] TDAP 2021-02-22 00:00:00 Completed [facility] TDAP 2021-02-22 00:00:00 Completed [facility] TDAP 2021-02-22 00:00:00 Completed [facility] TDAP 2021-02-22 00:00:00 Completed [facility] SARS-COV-2 COVID-19 MAURICIO/J&J VACCINE 2020-07-26 00:00:00 Completed [facility] SARS-COV-2 COVID-19 MAURICIO/J&J VACCINE 2020-07-26 00:00:00 Completed [facility] SARS-COV-2 COVID-19 MAURICIO/J&J VACCINE 2020-07-26 00:00:00 Completed [facility] SARS-COV-2 COVID-19 MAURICIO/J&J VACCINE 2020-07-26 00:00:00 Completed [facility] SARS-COV-2 COVID-19 MAURICIO/J&J VACCINE 2020-07-26 00:00:00 Completed [facility] SARS-COV-2 COVID-19 MAURICIO/J&J VACCINE 2020-07-26 00:00:00 Completed [facility] SARS-COV-2 COVID-19 MAURICIO/J&J VACCINE 2020-07-26 00:00:00 Completed [facility] SARS-COV-2 COVID-19 MAURICIO/J&J VACCINE 2020-07-26 00:00:00 Completed [facility] SARS-COV-2 COVID-19 MAURICIO/J&J VACCINE 2020-07-26 00:00:00 Completed [facility] SARS-COV-2 COVID-19 MAURICIO/J&J VACCINE 2020-07-26 00:00:00 Completed [facility] SARS-COV-2 COVID-19 MAURICIO/J&J VACCINE 2020-07-26 00:00:00 Completed [facility] SARS-COV-2 COVID-19 MAURICIO/J&J VACCINE 2020-07-26 00:00:00 Completed [facility] SARS-COV-2 COVID-19 MAURICIO/J&J VACCINE 2020-07-26 00:00:00 Completed [facility] SARS-COV-2 COVID-19 MAURICIO/J&J VACCINE 2020-07-26 00:00:00 Completed [facility] SARS-COV-2 COVID-19 MAURICIO/J&J VACCINE 2020-07-26 00:00:00 Completed [facility] SARS-COV-2 COVID-19 MAURICIO/J&J VACCINE 2020-07-26 00:00:00 Completed [facility] SARS-COV-2 COVID-19 MAURICIO/J&J VACCINE 2020-07-26 00:00:00 Completed [facility] SARS-COV-2 COVID-19 MAURICIO/J&J VACCINE 2020-07-26 00:00:00 Completed [facility] SARS-COV-2 COVID-19 MAURICIO/J&J VACCINE 2020-07-26 00:00:00 Completed [facility] SARS-COV-2 COVID-19 MAURICIO/J&J VACCINE 2020-07-26 00:00:00 Completed [facility] HPV 2013-11-11 00:00:00 Completed [facility] HPV 2013-11-11 00:00:00 Completed [facility] HPV 2013-11-11 00:00:00 Completed [facility] HPV 2013-11-11 00:00:00 Completed [facility] HPV 2013-11-11 00:00:00 Completed [facility] HPV 2013-11-11 00:00:00 Completed [facility] HPV 2013-11-11 00:00:00 Completed [facility] HPV 2013-11-11 00:00:00 Completed [facility] HPV 2013-11-11 00:00:00 Completed [facility] HPV 2013-11-11 00:00:00 Completed [facility] HPV 2013-11-11 00:00:00 Completed [facility] HPV 2013-11-11 00:00:00 Completed [facility] HPV 2013-11-11 00:00:00 Completed [facility] HPV 2013-11-11 00:00:00 Completed [facility] HPV 2013-11-11 00:00:00 Completed [facility] HPV 2013-11-11 00:00:00 Completed [facility] HPV 2013-11-11 00:00:00 Completed [facility] HPV 2013-11-11 00:00:00 Completed [facility] HPV 2013-11-11 00:00:00 Completed [facility] HPV 2013-11-11 00:00:00 Completed [facility] HPV 2013-09-11 00:00:00 Completed [facility] HPV 2013-09-11 00:00:00 Completed [facility] HPV 2013-09-11 00:00:00 Completed [facility] HPV 2013-09-11 00:00:00 Completed [facility] HPV 2013-09-11 00:00:00 Completed [facility] HPV 2013-09-11 00:00:00 Completed [facility] HPV 2013-09-11 00:00:00 Completed [facility] HPV 2013-09-11 00:00:00 Completed [facility] HPV 2013-09-11 00:00:00 Completed [facility] HPV 2013-09-11 00:00:00 Completed [facility] HPV 2013-09-11 00:00:00 Completed [facility] HPV 2013-09-11 00:00:00 Completed [facility] HPV 2013-09-11 00:00:00 Completed [facility] HPV 2013-09-11 00:00:00 Completed [facility] HPV 2013-09-11 00:00:00 Completed [facility] HPV 2013-09-11 00:00:00 Completed [facility] HPV 2013-09-11 00:00:00 Completed [facility] HPV 2013-09-11 00:00:00 Completed [facility] HPV 2013-09-11 00:00:00 Completed [facility] HPV 2013-09-11 00:00:00 Completed [facility] HPV 2013-05-10 00:00:00 Completed [facility] HPV 2013-05-10 00:00:00 Completed [facility] HPV 2013-05-10 00:00:00 Completed [facility] HPV 2013-05-10 00:00:00 Completed [facility] HPV 2013-05-10 00:00:00 Completed [facility] HPV 2013-05-10 00:00:00 Completed [facility] HPV 2013-05-10 00:00:00 Completed [facility] HPV 2013-05-10 00:00:00 Completed [facility] HPV 2013-05-10 00:00:00 Completed [facility] HPV 2013-05-10 00:00:00 Completed [facility] HPV 2013-05-10 00:00:00 Completed [facility] HPV 2013-05-10 00:00:00 Completed [facility] HPV 2013-05-10 00:00:00 Completed [facility] HPV 2013-05-10 00:00:00 Completed [facility] HPV 2013-05-10 00:00:00 Completed [facility] HPV 2013-05-10 00:00:00 Completed [facility] HPV 2013-05-10 00:00:00 Completed [facility] HPV 2013-05-10 00:00:00 Completed [facility] HPV 2013-05-10 00:00:00 Completed [facility] HPV 2013-05-10 00:00:00 Completed [facility] Meningococcal Polysaccharide (groups A, C, Y and W-135) conjugate vaccine (MCV4P) 2012-10-16 00:00:00 Completed [facility] Meningococcal Polysaccharide (groups A, C, Y and W-135) conjugate vaccine (MCV4P) 2012-10-16 00:00:00 Completed [facility] Meningococcal Polysaccharide (groups A, C, Y and W-135) conjugate vaccine (MCV4P) 2012-10-16 00:00:00 Completed [facility] Meningococcal Polysaccharide (groups A, C, Y and W-135) conjugate vaccine (MCV4P) 2012-10-16 00:00:00 Completed [facility] Td 2010-10-28 00:00:00 Completed [facility] Td 2010-10-28 00:00:00 Completed [facility] Td 2010-10-28 00:00:00 Completed [facility] Td 2010-10-28 00:00:00 Completed [facility] Td 2010-10-28 00:00:00 Completed [facility] Td 2010-10-28 00:00:00 Completed [facility] Td 2010-10-28 00:00:00 Completed [facility] Td 2010-10-28 00:00:00 Completed [facility] Td 2010-10-28 00:00:00 Completed [facility] Td 2010-10-28 00:00:00 Completed [facility] Td 2010-10-28 00:00:00 Completed [facility] TD, NOS 2010-10-28 00:00:00 Completed [facility] TD, NOS 2010-10-28 00:00:00 Completed [facility] TD, NOS 2010-10-28 00:00:00 Completed [facility] TD, NOS 2010-10-28 00:00:00 Completed [facility] TD, NOS 2010-10-28 00:00:00 Completed [facility] TD, NOS 2010-10-28 00:00:00 Completed [facility] TD, NOS 2010-10-28 00:00:00 Completed [facility] TD, NOS 2010-10-28 00:00:00 Completed [facility] TD, NOS 2010-10-28 00:00:00 Completed [facility] HEPATITIS A 2009-09-16 00:00:00 Completed [facility] HEPATITIS A 2009-09-16 00:00:00 Completed [facility] HEPATITIS A 2009-09-16 00:00:00 Completed [facility] HEPATITIS A 2009-09-16 00:00:00 Completed [facility] HEPATITIS A 2008-07-28 00:00:00 Completed [facility] Meningococcal Polysaccharide (groups A, C, Y and W-135) conjugate vaccine (MCV4P) 2008-07-28 00:00:00 Completed [facility] MMR 2008-07-28 00:00:00 Completed [facility] TDAP 2008-07-28 00:00:00 Completed [facility] HEPATITIS A 2008-07-28 00:00:00 Completed [facility] Meningococcal Polysaccharide (groups A, C, Y and W-135) conjugate vaccine (MCV4P) 2008-07-28 00:00:00 Completed [facility] MMR 2008-07-28 00:00:00 Completed [facility] TDAP 2008-07-28 00:00:00 Completed [facility] HEPATITIS A 2008-07-28 00:00:00 Completed [facility] Meningococcal Polysaccharide (groups A, C, Y and W-135) conjugate vaccine (MCV4P) 2008-07-28 00:00:00 Completed [facility] MMR 2008-07-28 00:00:00 Completed [facility] TDAP 2008-07-28 00:00:00 Completed [facility] HEPATITIS A 2008-07-28 00:00:00 Completed [facility] Meningococcal Polysaccharide (groups A, C, Y and W-135) conjugate vaccine (MCV4P) 2008-07-28 00:00:00 Completed [facility] MMR 2008-07-28 00:00:00 Completed [facility] TDAP 2008-07-28 00:00:00 Completed [facility] DTaP, Unspecified Formulation 2002-04-01 00:00:00 Completed [facility] MMR 2002-04-01 00:00:00 Completed [facility] IPV 2002-04-01 00:00:00 Completed [facility] DTaP, Unspecified Formulation 2002-04-01 00:00:00 Completed [facility] MMR 2002-04-01 00:00:00 Completed [facility] IPV 2002-04-01 00:00:00 Completed [facility] DTaP, Unspecified Formulation 2002-04-01 00:00:00 Completed [facility] MMR 2002-04-01 00:00:00 Completed [facility] IPV 2002-04-01 00:00:00 Completed [facility] DTaP, Unspecified Formulation 2002-04-01 00:00:00 Completed [facility] MMR 2002-04-01 00:00:00 Completed [facility] IPV 2002-04-01 00:00:00 Completed [facility] DPT/HIB 1996 00:00:00 Completed [facility] Hep B, Unspecified Formulation 1996 00:00:00 Completed [facility] Poliovirus, Live, Oral, Trivalent 1996 00:00:00 Completed [facility] DPT/HIB 1996 00:00:00 Completed [facility] Hep B, Unspecified Formulation 1996 00:00:00 Completed [facility] Poliovirus, Live, Oral, Trivalent 1996 00:00:00 Completed [facility] DPT/HIB 1996 00:00:00 Completed [facility] Hep B, Unspecified Formulation 1996 00:00:00 Completed [facility] Poliovirus, Live, Oral, Trivalent 1996 00:00:00 Completed [facility] DPT/HIB 1996 00:00:00 Completed [facility] Hep B, Unspecified Formulation 1996 00:00:00 Completed [facility] Poliovirus, Live, Oral, Trivalent 1996 00:00:00 Completed [facility] Hep B, Unspecified Formulation 1996 00:00:00 Completed [facility] Hep B, Unspecified Formulation 1996 00:00:00 Completed [facility] Hep B, Unspecified Formulation 1996 00:00:00 Completed [facility] Hep B, Unspecified Formulation 1996 00:00:00 Completed [facility] TD, NOS Unknown Completed [facility] SARS-COV-2 COVID-19 MAURICIO/J&J VACCINE Unknown Completed [facility] TDAP Unknown Completed [facility] HPV Unknown Completed [facility] HPV9 Unknown Completed [facility] DTaP, Unspecified Formulation Unknown Completed [facility] DPT/HIB Unknown Completed [facility] HEPATITIS A Unknown Completed [facility] Hep B, Unspecified Formulation Unknown Completed [facility] Meningococcal Polysaccharide (groups A, C, Y and W-135) conjugate vaccine (MCV4P) Unknown [facility] MMR Unknown Completed [facility] IPV Unknown Completed [facility] Poliovirus, Live, Oral, Trivalent Unknown Completed [facility] TD, NOS Unknown Completed [facility] SARS-COV-2 COVID-19 MAURICIO/J&J VACCINE Unknown Completed [facility] TDAP Unknown Completed [facility] HPV Unknown Completed [facility] HPV9 Unknown Completed [facility] DTaP, Unspecified Formulation Unknown Completed [facility] DPT/HIB Unknown Completed [facility] HEPATITIS A Unknown Completed [facility] Hep B, Unspecified Formulation Unknown Completed [facility] Meningococcal Polysaccharide (groups A, C, Y and W-135) conjugate vaccine (MCV4P) Unknown Completed [facility] MMR Unknown Completed [facility] IPV Unknown Completed [facility] Poliovirus, Live, Oral, Trivalent Unknown Completed [facility] TD, NOS Unknown Completed [facility] SARS-COV-2 COVID-19 MAURICIO/J&J VACCINE Unknown Completed [facility] TDAP Unknown Completed [facility] HPV Unknown Completed [facility] DTaP, Unspecified Formulation Unknown Completed [facility] DPT/HIB Unknown Completed [facility] HEPATITIS A Unknown Completed [facility] Hep B, Unspecified Formulation Unknown Completed [facility] Meningococcal Polysaccharide (groups A, C, Y and W-135) conjugate vaccine (MCV4P) Unknown Completed [facility] MMR Unknown Completed [facility] IPV Unknown Completed [facility] Poliovirus, Live, Oral, Trivalent Unknown Completed [facility] TD, NOS Unknown Completed [facility] SARS-COV-2 COVID-19 MAURICIO/J&J VACCINE Unknown Completed [facility] HPV Unknown Completed [facility] DTaP, Unspecified Formulation Unknown Completed [facility] DPT/HIB Unknown Completed [facility] HEPATITIS A Unknown Completed [facility] Hep B, Unspecified Formulation Unknown Completed [facility] Meningococcal Polysaccharide (groups A, C, Y and W-135) conjugate vaccine (MCV4P) Unknown Completed [facility] MMR Unknown Completed [facility] IPV Unknown Completed [facility] Poliovirus, Live, Oral, Trivalent Unknown Completed [facility] TDAP Unknown Completed [facility] TD, NOS Unknown Completed [facility] SARS-COV-2 COVID-19 MAURICIO/J&J VACCINE Unknown Completed [facility] TDAP Unknown Completed [facility] HPV Unknown Completed [facility] HPV9 Unknown Completed [facility] DTaP, Unspecified Formulation Unknown Completed [facility] DPT/HIB Unknown Completed [facility] HEPATITIS A Unknown Completed [facility] Hep B, Unspecified Formulation Unknown Completed [facility] Meningococcal Polysaccharide (groups A, C, Y and W-135) conjugate vaccine (MCV4P) Unknown Completed [facility] MMR Unknown Completed [facility] IPV Unknown Completed [facility] Poliovirus, Live, Oral, Trivalent Unknown Completed [facility] Vital Signs Vital Name Observation Time Observation Value Comments S ource Systolic blood pressure 2022-12-03 00:15:00 118 mm[Hg] [facility] Diastolic blood pressure 2022-12-03 00:15:00 79 mm[Hg] [facility] Heart rate 2022-12-03 00:15:00 99 /min [facility] Body temperature 2022-12-03 00:15:00 37.44 Emmanuelle [facility] Respiratory rate 2022-12-03 00:15:00 15 /min [facility] Body height 2022-12-03 00:15:00 165.1 cm [facility] Body weight 2022-12-03 00:15:00 138.256 kg [facility] BMI 2022-12-03 00:15:00 50.72 kg/m2 [facility] Oxygen saturation in Arterial blood by Pulse oximetry 2022-12-03 00:15:00 98 /min [facility] Systolic blood pressure 2022-10-02 18:30:00 136 mm[Hg] [facility] Diastolic blood pressure 2022-10-02 18:30:00 75 mm[Hg] [facility] Heart rate 2022-10-02 18:30:00 80 /min [facility] Body temperature 2022-10-02 18:30:00 36.83 Emmanuelle [facility] Respiratory rate 2022-10-02 18:30:00 18 /min [facility] Body height 2022-10-02 18:30:00 162.6 cm [facility] Body weight 2022-10-02 18:30:00 132.904 kg [facility] BMI 2022-10-02 18:30:00 50.29 kg/m2 [facility] Systolic blood pressure 2022-04-30 16:31:00 133 mm[Hg] [facility] Diastolic blood pressure 2022-04-30 16:31:00 84 mm[Hg] [facility] Heart rate 2022-04-30 16:31:00 76 /min [facility] Body temperature 2022-04-30 16:31:00 35.83 Emmanuelle [facility] Respiratory rate 2022-04-30 16:31:00 18 /min [facility] Body height 2022-04-30 16:31:00 162.6 cm [facility] Body weight 2022-04-30 16:31:00 131.815 kg [facility] BMI 2022-04-30 16:31:00 49.88 kg/m2 [facility] Systolic blood pressure 2022-04-19 15:39:00 119 mm[Hg] [facility] Diastolic blood pressure 2022-04-19 15:39:00 76 mm[Hg] [facility] Heart rate 2022-04-19 15:39:00 81 /min [facility] Body temperature 2022-04-19 15:39:00 36.61 Emmanuelle [facility] Respiratory rate 2022-04-19 15:39:00 18 /min [facility] Body height 2022-04-19 15:39:00 162.6 cm [facility] Body weight 2022-04-19 15:39:00 131.044 kg [facility] BMI 2022-04-19 15:39:00 49.59 kg/m2 [facility] Systolic blood pressure 2022-03-03 15:17:00 125 mm[Hg] [facility] Diastolic blood pressure 2022-03-03 15:17:00 87 mm[Hg] [facility] Heart rate 2022-03-03 15:17:00 74 /min [facility] Body temperature 2022-03-03 15:17:00 36.83 Emmanuelle [facility] Respiratory rate 2022-03-03 15:17:00 18 /min [facility] Body height 2022-03-03 15:17:00 162.6 cm [facility] Body weight 2022-03-03 15:17:00 113.399 kg [facility] BMI 2022-03-03 15:17:00 42.91 kg/m2 [facility] Oxygen saturation in Arterial blood by Pulse oximetry 2022-03-03 15:17:00 99 /min [facility] Systolic blood pressure 2022-02-14 20:28:00 138 mm[Hg] [facility] Diastolic blood pressure 2022-02-14 20:28:00 85 mm[Hg] [facility] Heart rate 2022-02-14 20:28:00 66 /min [facility] Body temperature 2022-02-14 20:28:00 36.33 Emmanuelle [facility] Respiratory rate 2022-02-14 20:28:00 20 /min [facility] Body height 2022-02-14 20:28:00 162.6 cm [facility] Body weight 2022-02-14 20:28:00 124.059 kg [facility] BMI 2022-02-14 20:28:00 46.95 kg/m2 [facility] Systolic blood pressure 2022-01-24 22:13:00 144 mm[Hg] Had to try 3x before getting a reading [facility] Diastolic blood pressure 2022-01-24 22:13:00 98 mm[Hg] Had to try 3x before getting a reading [facility] Heart rate 2022-01-24 22:13:00 97 /min [facility] Body temperature 2022-01-24 22:13:00 36.89 Emmanuelle [facility] Respiratory rate 2022-01-24 22:13:00 18 /min [facility] Body height 2022-01-24 22:13:00 162.6 cm [facility] Body weight 2022-01-24 22:13:00 125.919 kg [facility] BMI 2022-01-24 22:13:00 47.65 kg/m2 [facility] Oxygen saturation in Arterial blood by Pulse oximetry 2022-01-24 22:13:00 98 /min [facility] Systolic blood pressure 2021-12-06 13:30:00 124 mm[Hg] [facility] Diastolic blood pressure 2021-12-06 13:30:00 54 mm[Hg] [facility] Heart rate 2021-12-06 13:30:00 72 /min [facility] Body temperature 2021-12-06 13:30:00 36.28 Emmanuelle [facility] Respiratory rate 2021-12-06 13:30:00 18 /min [facility] Body height 2021-12-06 13:30:00 165.1 cm [facility] Body weight 2021-12-06 13:30:00 130.296 kg [facility] BMI 2021-12-06 13:30:00 47.80 kg/m2 [facility] Procedures Procedure Date / Time Performed Performing Clinician Source POCT SARS-COV-2 ANTIGEN (BINAX NOW) 2022-12-03 00:31:00 Jessika Manrique [facility] CBC WITH DIFF 2022-10-02 19:30:00 Jennifer Puri [facility] GLYCOSYLATED HEMOGLOBIN (A1C) 2022-10-02 19:30:00 Jennifer Puri [facility] HCV ANTIBODY 2022-10-02 19:30:00 [facility] CHLAM[facility]DIA AMPLIFIED ASSAY 2022-10-02 19:30:00 Jennifer Puri [facility] HIV 1/2 AG-AB WITH REFLEX 2022-10-02 19:30:00 Jennifer Puri [facility] TRICHOMONAS AMPLIFIED ASSAY 2022-10-02 19:30:00 Jennifer Puri [facility] PAP SMEAR-LIQUID BASED-CP 2022-10-02 19:30:00 Jennifer Puri [facility] SYPHILIS IGG/IGM 2022-10-02 19:30:00 Jennifer Puri [facility] PATIENT FINANCIAL POLICY 2022-10-02 18:08:46 Doctor Unassigned, [place] [facility] POCT TEST 2022-04-30 16:35:00 Jonel Adams [facility] DISCLOSURE AND CONSENT, MEDICAL AND SURGICAL PROCEDURES 2022-04-30 06:01:00 Doctor Unassigned, [place] [facility] POCT TEST 2022-04-19 15:41:00 Jonel Adams [facility] BASIC METABOLIC PANEL (NA, K, CL, CO2, GLUCOSE, BUN, CREATININE, CA) 2022-03-03 15:57:00 Tiana Antonio [facility] ETHANOL 2022-03-03 15:57:00 Tiana Antonio [facility] CBC WITH DIFF 2022-03-03 15:57:00 Tiana Antonio [facility] URINALYSIS 2022-03-03 15:57:00 Tiana Antonio [facility] URINE DRUG (IMMUNOASSAY) - COMPREHENSIVE DRUG SCREEN W/O REFLEX 2022-03-03 15:57:00 Tiana Antonio [facility] HB ECG ROUTINE & RHYTHM STRIP 2022-03-03 15:55:48 Tiana Antonio [facility] POCT TEST 2022-02-14 20:48:00 Jonel Adams [facility] ASSIGNMENT OF BENEFITS 2022-02-14 19:38:06 Docto r Unassigned, [place] [facility] POCT URINALYSIS 2022-01-24 22:31:00 Jessika Manrique [facility] POCT TEST 2021-12-06 15:36:00 Jonel Adams [facility] Encounters Start Date/Time End Date/Time Encounter Type Admission Type Attending Clinicians Care Facility Care Department Encounter ID Source 2021-01-22 06:46:[address] [facility] [id number] [facility] 2023-09-18 14:00:00 2023-09-18 14:00:[address] [facility] [id number] [facility] 2023-08-30 15:15:00 2023-08-30 15:15:[address] [facility] [id number] [facility] 2023-08-29 10:45:00 2023-08-29 10:45:00 [address]ya YAN [facility] [facility] [id number] [facility] 2023-02-21 15:00:00 2023-02-21 15:00:00 Outpatient R LALYALEJANDROANTONIAJEISONESTEVAN [facility] [id number] [facility] 2023-01-28 00:00:00 2023-01-28 00:00:00 Outpatient GC_GCBZW_Ka diyala_S PRIV PRIV [id number] [facility] 2023-01-22 08:30:00 2023-01-22 08:30:[address] [facility] [id number] [facility] 2023-01-19 00:00:00 2023-01-19 00:00:00 Outpatient GC_GCBZW_Ka diyala_S PRIV PRIV [id number] [facility] 2023-01-18 00:00:00 2023-01-18 00:00:00 Outpatient GC_GCBZW_Ka diyala_S PRIV PRIV [id number] [facility] 2023-01-18 00:00:00 2023-01-18 00:00:00 Telephone Estevan Adams [facility] PLANS [facility]AM[facility]ER [facility] MATERNAL & [facility]ILD [facility] 1.2.840.114 350.1.13.10 4.2.7.2.686 [id number] [facility] 2023-01-14 14:00:00 2023-01-14 14:00:00 Outpatient R ELIASI S OMKAR ALEKS-JANETT SLEFTYOMKAR [facility] [id number] [facility] 2022-12-04 00:00:00 2022-12-04 00:00:00 Telephone Jessika Manrique [facility] 1.84.114 350.1.13.10 4.2.7.2.686 [id number] [facility] 2022-12-02 19:00:00 2022-12-02 19:35:03 Outpatient R BRIGITTE JESSIKA [facility] [id number] [facility] 2022-12-02 19:00:00 2022-12-02 19:20:00 Urgent Care Jessika Manrique Unknown, Attending [facility] 1.84.114 350.1.13.10 4.2.7.2.686 [id number] 370 [id number] [facility] 2022-10-04 00:00:00 2022-10-04 00:00:00 Telephone Jennifer Puri [facility] PLANS [facility] & CHILD [facility] 1.84.114 350.1.13.10 4.2.7.2.686 [id number] 107 [id number] [facility] 2022-10-02 13:30:00 2022-10-02 14:31:55 Outpatient R JENNIFER PURI [facility] [id number] [facility] 2022-10-02 13:30:00 2022-10-02 14:31:55 Office Visit Jennifer Puri [facility] PLANS [facility] 1.84.114 350.1.13.10 4.2.7.2.686 [id number] 107 [id number] [facility] 2022-10-02 00:00:00 2022-10-02 00:00:00 Orders Only Doctor Unassigned, [place] [facility] 1.84.114 350.1.13.10 4.2.7.2.686 [id number] [facility] 2022-07-04 13:15:00 2022-07-04 13:15:[address] [facility] [id number] [facility] 2022-07-04 13:15:00 2022-07-04 13:15:[address] [facility] [id number] [facility] 2022-07-04 13:00:00 2022-07-04 13:00:[address] [facility] [id number] [facility] 2022-04-30 10:00:00 2022-04-30 10:30:00 Office Visit Estevan Adams [facility] PL[facility] MATERNAL & CHILD HEALTH [facility] 1..840.114 350.1.13.10 4.2.7.2.686 [id number] 107 [id number] [facility] 2022-04-30 10:00:00 2022-04-30 10:00:00 Outpatient R ESTEVAN ADAMS [facility] [id number] [facility] 2022-04-30 00:00:00 2022-04-30 00:00:00 Orders Only Doctor Unassigned, [place] [facility] 1..840.114 350.1.13.10 4.2.7.2.686 [id number] [facility] 2022-04-19 09:30:00 2022-04-19 10:05:06 Out[address] R [address] [facility] [id number] [facility] 2022-04-19 09:30:00 2022-04-19 10:05:06 Office Visit Estevan Adams [facility] PLANS [facility] MATERNAL & CHILD [facility] ..840.114 350.1.13.10 4.2.7.2.686 [id number] 107 [id number] [facility] 2022-04-19 00:00:00 2022-04-19 00:00:00 Letter (Out) Lalyalejandroantonia Estevan Carlisle [facility] PLANS [facility] & CHILD [facility] 1.2840.114 350.1.13.10 4.2.7.2.686 [id number] 107 [id number] [facility] 2022-03-07 09:45:00 2022-03-07 09:45:[address] [facility] [id number] [facility] 2022-03-03 09:22:00 2022-03-03 12:44:00 Emergency X TIANA ANTONIO [facility] ERT [id number] [facility] 2022-03-03 09:22:00 2022-03-03 12:44:00 Emergency Paco, Tiana E [facility] 1.2840.114 350.1.13.10 4.2.7.2.686 [id number] [facility] 2022-02-18 00:00:00 2022-02-18 00:00:00 Refill LalyalejandroEstevan knight [facility]/GYN [facility] CHILD [facility] 1.2840.114 350.1.13.10 4.2.7.2.686 [id number] [facility] 2022-02-14 13:30:00 2022-02-14 14:35:37 Nurse Visit Visit, [facility] Nurse Jennifer Puri [facility] PLANS [facility] & CHILD [facility] 1.2.840.114 350.1.13.10 4.2.7.2.686 [id number] 107 [id number] [facility] 2022-02-14 14:30:00 2022-02-14 14:30:[address] [facility] [id number] [facility] 2022-02-14 13:30:00 2022-02-14 13:30:[address] [facility] [id number] [facility] 2022-02-14 00:00:00 2022-02-14 00:00:00 Orders Only Doctor Unassigned, [place] [facility] 1.84.114 350.1.13.10 4.2.7.2.686 [id number] [facility] 2022-02-14 00:00:00 2022-02-14 00:00:00 Telephone Siria Anderson [facility] PLANS [facility] & CHILD [facility] 1.84.114 350.1.13.10 4.2.7.2.686 [id number] 107 [id number] [facility] 2022-02-06 00:00:00 2022-02-06 00:00:00 Telephone Estevan Adams [facility] PLANS EXAMINER [facility] CHILD [facility] 1.84.114 350.1.13.10 4.2.7.2.686 [id number] 107 [id number] [facility] 2022-01-24 17:20:00 2022-01-24 17:28:54 Outpatient R JESSIKA MANRIQUE [facility] [id number] [facility] 2022-01-24 17:20:00 2022-01-24 17:28:54 Urgent Care Jessika Manrique Unknown, Attending [facility] 1.84.114 350.1.13.10 4.2.7.2.686 [id number] [facility] 2022-01-01 00:00:00 2022-01-01 00:00:00 Refill Estevan Adams [facility] PLANS EXAMINER [facility] CHILD [facility] 1.84.114 350.1.13.10 4.2.7.2.686 [id number] 107 [id number] [facility] 2022-01-01 00:00:00 2022-01-01 00:00:00 Telephone Estevan Adams [facility] PLANS [facility] & CHILD [facility] 1.2.840.114 350.1.13.10 4.2.7.2.686 [id number] 107 [id number] [facility] 2021-12-29 00:00:00 2021-12-29 00:00:00 Refill Estevan Adams [facility] PLANS [facility] & CHILD [facility] 1.2.840.114 350.1.13.10 4.2.7.2.686 [id number] 107 [id number] [facility] 2021-12-06 08:15:00 2021-12-06 08:54:24 Office Visit Estevan Adams [facility] PLANS [facility] & CHILD [facility] 1.2.840.114 350.1.13.10 4.2.7.2.686 [id number] 107 [id number] [facility] 2021-12-06 08:15:00 2021-12-06 08:54:24 Outpatient R [address]EVAN [address] [facility] [id number] [facility] 2021-12-06 08:15:00 2021-12-06 08:15:00 Outpatient R ESTEVAN [facility]AMS [facility] [id number] [facility] 2021-11-22 15:15:00 2021-11-22 15:15:00 Outpatient R ESTEVAN [facility]AMS [facility] [id number] [facility] 2021-11-21 00:00:00 2021-11-21 00:00:00 Telephone Siria Anderson [facility] PLANS EXAMINER [facility] CHILD [facility] 1.2.840.114 350.1.13.10 4.2.7.2.686 [id number] 107 [id number] [facility] 2021-11-20 00:00:00 2021-11-20 00:00:00 Telephone Siria Anderson [facility] PLANS [facility] & CHILD [facility] 1.2.840.114 350.1.13.10 4.2.7.2.686 [id number] 107 [id number] [facility] 2021-09-03 00:00:00 2021-09-03 00:00:00 Refill Anette Andersonmanuel Stokes [facility] PLANS [facility] & CHILD [facility] 1.2.840.114 350.1.13.10 4.2.7.2.686 [id number] 107 [id number] [facility] 2021-07-04 12:45:00 2021-07-04 13:31:36 Office Visit Anette Andersonmanuel Stokes [facility] PLANS [facility] & CHILD [facility] 1.2.840.114 350.1.13.10 4.2.7.2.686 [id number] 107 [id number] [facility] 2021-07-04 12:45:00 2021-07-04 13:31:36 Outpatient R JUSTIN [facility]IA [facility] [id number] [facility] 2021-07-04 12:45:00 2021-07-04 12:45:00 Outpatient R ANDERSON, SIRIA [facility] [id number] [facility] 2021-07-04 00:00:00 2021-07-04 00:00:00 Telephone Maisha West [facility] 1.2.840.114 350.1.13.10 4.2.7.2.686 [id number] [facility] 2021-07-03 18:20:00 2021-07-03 18:53:[address] [facility] [id number] [facility] 2021-07-03 18:20:00 2021-07-03 18:53:[address] [facility] [id number] [facility] 2021-07-03 18:20:00 2021-07-03 18:53:48 Urgent Care Jessika Manrique [facility] 1..840.114 350.1.13.10 4.2.7.2.686 [id number] [facility] 2021-07-03 09:30:00 2021-07-03 09:30:00 Outpatient SHINE EASTON YING RODRIGUEZ [id number] [facility] 2021-07-03 08:15:00 2021-07-03 08:15:00 Outpatient SHINEEASTON [id number] [facility] 2021-07-03 00:00:00 2021-07-03 00:00:00 Patient Secure Siria Anderson [facility] PLANS [facility] MATERNAL & CHILD [facility] 1..840.114 350.1.13.10 4.2.7.2.686 [id number] 107 [id number] [facility] 2021-06-21 13:00:00 2021-06-21 14:53:[address] [facility] [id number] [facility] 2021-06-21 13:00:00 2021-06-21 14:53:50 Office Visit Siria Anderson [facility] PLANS [facility] & CHILD [facility] 1..840.114 350.1.13.10 4.2.7.2.686 [id number] [facility] 2021-06-21 13:00:00 2021-06-21 14:53:[address] [facility] [id number] [facility] 2021-05-31 08:00:00 2021-05-31 09:04:[address] [facility] [id number] [facility] 2021-05-31 08:00:00 2021-05-31 09:04:36 Routine Visit Siria Anderson [facility] PLANS [facility] & CHILD [facility] 1.2840.114 350.1.13.10 4.2.7.2.686 [id number] 107 [id number] [facility] 2021-05-29 00:00:00 2021-05-29 00:00:00 Patient Secure Msg Siria Anderson [facility] PLANS [facility] & CHILD [facility] 1.2840.114 350.1.13.10 4.2.7.2.686 [id number] 107 [id number] [facility] 2021-05-19 00:00:00 2021-05-19 00:00:00 Telephone Estevan Adams [facility] PLANS [facility] & CHILD [facility] 1.2840.114 350.1.13.10 4.2.7.2.686 [id number] 107 [id number] [facility] 2021-05-17 13:00:00 2021-05-17 13:00:00 Nurse Visit Nurse, Naun Lima Exp Cprit Obgyn Siria Anderson [facility] PLANS [facility] & CHILD [facility] [id number] [id number] [id number] [id number] [facility] 2021-05-17 13:00:00 2021-05-17 08:46:02 Outpatient R SIRIA ANDERSON [facility] [id number] [facility] 2021-05-17 08:00:00 2021-05-17 08:45:55 Nurse Visit Visit, Naun-Rmchp Nurse Siria Anderson [facility] PLANS EXAM[facility]ER [facility] [id number] [id number] [id number] [id number] [facility] 2021-05-09 17:42:00 2021-05-12 16:52:00 Inpatient P JODEE ALMAZAN [facility] REZA [id number] [facility] 2021-05-09 17:42:00 2021-05-12 16:52:00 Hospital Encounter King, Jodee Suarez [facility] [id number] [id number] [id number] [id number] [facility] 2021-05-10 17:00:00 2021-05-10 18:47:00 Surgery Nixonrosi Zbigniew French [facility] 1.2840.114 350.1.13.10 4.2.7.2.686 [id number] [facility] 2021-05-10 09:54:00 2021-05-10 18:34:00 Anesthesia Event Glen Mcgraw Axel [facility] 1.0.114 350.1.13.10 4.2.7.2.686 [id number] [facility] 2021-05-09 13:15:00 2021-05-09 14:00:[address] [facility] [id number] [facility] 2021-05-09 13:15:00 2021-05-09 14:00:22 Routine Visit Siria Anderson [facility] PLANS [facility] MATERNAL & CHILD [facility] 1..114 350.1.13.10 4.2.7.2.686 [id number] 107 [id number] [facility] 2021-05-02 15:30:00 2021-05-02 15:58:07 [address] SIRIA ANDERSON [facility] [id number] [facility] 2021-05-02 15:30:00 2021-05-02 15:58:07 Routine Visit Siria Anderson [facility] PL[facility] & CHILD [facility] 1.0.114 350.1.13.10 4.2.7.2.686 [id number] 107 [id number] [facility] 2021-05-02 00:00:00 2021-05-02 00:00:00 Abstract Siria Anderson [facility] & CHILD [facility] 1.2.840.114 350.1.13.10 4.2.7.2.686 [id number] 107 [id number] [facility] 2021-04-28 09:30:00 2021-04-28 10:00:00 Marketing Services Vice President Visit Ultrasound, Katelyn Whiting [facility] & CHILD [facility] 1..840.114 350.1.13.10 4.2.7.2.686 [id number] [facility] 2021-04-28 09:30:00 2021-04-28 09:30:[address] [facility] [id number] [facility] 2021-04-28 09:30:00 2021-04-28 09:30:[address] [facility] [id number] [facility] 2021-04-28 09:30:00 2021-04-28 09:30:00 Outpatient P KATELYN CRUZ SHANNON [facility] [id number] [facility] 2021-04-25 15:30:00 2021-04-25 16:19:38 Outpatient R SIRIA ANDERSON [facility] [id number] [facility] 2021-04-25 15:30:00 2021-04-25 16:19:38 Routine Visit Siria Anderson [facility] & CHILD [facility] 1..840.114 350.1.13.10 4.2.7.2.686 [id number] 107 [id number] [facility] 2021-04-25 15:30:00 2021-04-25 15:30:00 Outpatient R SIRIA ANDERSON [facility] [id number] [facility] 2021-04-24 15:30:00 2021-04-24 15:30:[address] [facility] [id number] [facility] 2021-04-21 00:00:00 2021-04-21 00:00:00 Telephone Luda Andersonkali Stokes [facility] PL[facility] & CHILD [facility] 1..840.114 350.1.13.10 4.2.7.2.686 [id number] 107 [id number] [facility] 2021-04-19 13:15:00 2021-04-19 13:15:00 Out[address] R JUSTIN SIRIA [facility] [id number] [facility] 2021-04-19 13:15:00 2021-04-19 13:15:00 Marketing Services Vice President Visit Lab, [facility] Justin Siria Stokes [facility] & CHILD [facility] 1..840.114 350.1.13.10 4.2.7.2.686 [id number] 107 [id number] [facility] 2021-04-19 13:00:00 2021-04-19 13:00:[address] [facility] [id number] [facility] 2021-04-19 00:00:00 2021-04-19 00:00:00 Telephone Luda Andersonkali Stokes [facility] PL[facility] & CHILD [facility] ..840.114 350.1.13.10 4.2.7.2.686 [id number] 107 [id number] [facility] 2021-04-18 15:30:00 2021-04-18 16:11:31 Outpatient R JUSTIN SIRIA [facility] [id number] [facility] 2021-04-18 15:30:00 2021-04-18 16:11:31 Routine Visit AndersonSiria [facility] PL[facility] & CHILD [facility] 1..840.114 350.1.13.10 4.2.7.2.686 [id number] 107 [id number] [facility] 2021-04-18 15:30:00 2021-04-18 16:11:[address] [facility] [id number] [facility] 2021-04-18 15:30:00 2021-04-18 15:30:[address] [facility] [id number] [facility] 2021-04-11 13:00:00 2021-04-11 14:15:13 Outpatient R SIRIA ANDERSON [facility] [id number] [facility] 2021-04-11 13:00:00 2021-04-11 14:15:13 Outpatient R SIRIA ANDERSON [facility] [id number] [facility] 2021-04-11 13:00:00 2021-04-11 14:15:13 Routine Visit Siria Anderson [facility] PL[facility] & CHILD [facility] .2.840.114 350.1.13.10 4.2.7.2.686 [id number] 107 [id number] [facility] 2021-04-11 13:00:00 2021-04-11 13:00:[address] [facility] [id number] [facility] 2021-03-29 00:00:00 2021-03-29 00:00:00 Telephone Anderson, Roskali Stokes [facility] PLANS [facility]NAL & CHILD [facility] .2.840.114 350.1.13.10 4.2.7.2.686 [id number] 107 [id number] [facility] 2021-03-22 14:30:00 2021-03-22 14:51:[address] [facility] [id number] [facility] 2021-03-22 14:30:00 2021-03-22 14:51:40 Routine Visit Siria Anderson Antonio F [facility] PLANS [facility]NAL & CHILD [facility] 1.2.840.114 350.1.13.10 4.2.7.2.686 [id number] 107 [id number] [facility] 2021-03-22 14:30:00 2021-03-22 14:30:00 Outpatient R SIRIA ANDERSON [facility] [id number] [facility] 2021-03-22 14:00:00 2021-03-22 14:30:00 Marketing Services Vice President Visit Ultrasound, Naun-Siria Olmstead Antonio F [facility] PLANS [facility]NAL & CHILD [facility] 1.2.840.114 350.1.13.10 4.2.7.2.686 [id number] [facility] 2021-03-22 00:00:00 2021-03-22 00:00:00 Abstract Siria Anderson [facility] PLANS [facility] & CHILD [facility] 1.2.840.114 350.1.13.10 4.2.7.2.686 [id number] 107 [id number] [facility] 2021-03-15 00:00:00 2021-03-15 00:00:00 Patient Secure Msg Siria Anderson [facility] PLANS [facility] & CHILD [facility] 1.2.840.114 350.1.13.10 4.2.7.2.686 [id number] 107 [id number] [facility] 2021-03-14 00:00:00 2021-03-14 00:00:00 Telephone Siria Anderson [facility] PLANS [facility] & CHILD [facility] 1.2.840.114 350.1.13.10 4.2.7.2.686 [id number] 107 [id number] [facility] 2021-03-13 00:00:00 2021-03-13 00:00:00 Aaron Dykes [facility] PL[facility]ILD [facility] 1.2.840.114 350.1.13.10 4.2.7.2.686 [id number] [facility] 2021-03-13 00:00:00 2021-03-13 00:00:00 Refill Siria Anderson [facility] PLANS [facility] & CHILD [facility] 1.2.840.114 350.1.13.10 4.2.7.2.686 [id number] 107 [id number] [facility] 2021-03-10 00:00:00 2021-03-10 00:00:00 Refill Siria Anderson [facility] PLANS [facility] & CHILD [facility] 1.2840.114 350.1.13.10 4.2.7.2.686 [id number] 107 [id number] [facility] 2021-03-10 00:00:00 2021-03-10 00:00:00 Aaron Dykes [facility] PLANS [facility] & CHILD [facility] 1.2840.114 350.1.13.10 4.2.7.2.686 [id number] [facility] 2021-03-09 15:45:00 2021-03-09 16:18:23 Outpatient R SIRIA ANDERSON [facility] [id number] [facility] 2021-03-09 15:45:00 2021-03-09 16:18:23 Routine Visit Siria Anderson [facility] PLANS [facility] & CHILD [facility] 1.2.840.114 350.1.13.10 4.2.7.2.686 [id number] 107 [id number] [facility] 2021-03-09 00:00:00 2021-03-09 00:00:00 Refill Aaron Alicea [facility] PLANS [facility] & CHILD [facility] 1.2.840.114 350.1.13.10 4.2.7.2.686 [id number] [facility] 2021-03-09 00:00:00 2021-03-09 00:00:00 Saul AndersonSiria [facility] PLANS [facility] & CHILD [facility] 1..840.114 350.1.13.10 4.2.7.2.686 [id number] 107 [id number] [facility] 2021-03-08 15:45:00 2021-03-08 15:45:[address] [facility] [id number] [facility] 2021-02-22 10:00:00 2021-02-22 11:57:[address] [facility] [id number] [facility] 2021-02-22 09:59:09 2021-02-22 11:57:26 Routine Visit Provider, Aaron Barlow [facility] PLANS [facility] & CHILD [facility] .840.114 350.1.13.10 4.2.7.2.686 [id number] 107 [id number] [facility] 2021-02-13 10:52:00 2021-02-13 11:22:00 Marketing Services Vice President Visit Ultrasound, Silvana Ruff [facility] PLANS [facility] & CHILD [facility] ..840.114 350.1.13.10 4.2.7.2.686 [id number] [facility] 2021-02-13 10:45:00 2021-02-13 10:45:00 Outpatient [address]ILVANA WESLEY SANGEETA [facility] [id number] [facility] 2021-02-13 00:00:00 2021-02-13 00:00:00 Case Management Bo Rivera [facility] PLANS [facility] & CHILD [facility] 1.2840.114 350.1.13.10 4.2.7.2.686 [id number] 107 [id number] [facility] 2021-02-03 00:00:00 2021-02-03 00:00:00 Telephone Aaron Alicea [facility] PLANS [facility] MATERNAL & CHILD [facility] 1.2840.114 350.1.13.10 4.2.7.2.686 [id number] [facility] 2021-02-01 10:45:00 2021-02-01 11:09:[address] [facility] [id number] [facility] 2021-02-01 10:04:55 2021-02-01 11:09:09 Routine Visit Provider, HowardRmchp Bo Jorgensen [facility] PLANS [facility] & CHILD [facility] 1.840.114 350.1.13.10 4.2.7.2.686 [id number] 107 [id number] [facility] 2021-01-31 00:00:00 2021-01-31 00:00:00 RefNguyễn Schulz [facility] 1..114 350.1.13.10 4.2.7.2.686 [id number] [facility] 2021-01-30 00:00:00 2021-01-30 00:00:00 Telephone Aaron Alicea [facility] PLANS [facility] MATERNAL & CHILD [facility] 1.2840.114 350.1.13.10 4.2.7.2.686 [id number] 107 [id number] [facility] 2021-01-29 00:00:00 2021-01-29 00:00:00 Siria Lechuga [facility] PLANS [facility] 1.2840.114 350.1.13.10 4.2.7.2.686 [id number] 107 [id number] [facility] 2021-01-29 00:00:00 2021-01-29 00:00:00 Refill [facility] 1.2.840.114 350.1.13.10 4.2.7.2.686 [id number] [facility] 2021-01-19 14:40:00 2021-01-19 15:06:44 Outpatient R [facility] [id number] [facility] 2021-01-19 14:22:57 2021-01-19 15:06:44 Urgent Care Nguyễn Adhikari [facility] 1..840.114 350.1.13.10 4.2.7.2.686 [id number] 370 [id number] [facility] 2021-01-04 00:00:00 2021-01-04 00:00:00 Telephone AndersonSiria howard [facility] PLANS [facility] & CHILD [facility] 1..840.114 350.1.13.10 4.2.7.2.686 [id number] 107 [id number] [facility] 2021-01-03 00:00:00 2021-01-03 00:00:00 Telephone Siria Anderson [facility] PLANS [facility] & CHILD [facility] 1.2.840.114 350.1.13.10 4.2.7.2.686 [id number] 107 [id number] [facility] 2021-01-03 00:00:00 2021-01-03 00:00:00 Telephone Siria Anderson [facility] PLANS [facility] & CHILD [facility] 1.2.840.114 350.1.13.10 4.2.7.2.686 [id number] 107 [id number] [facility] 2021-01-02 10:45:39 2021-01-02 11:10:03 Routine Visit Provider, Aaron Barlow [facility] PLANS [facility] & [facility]ILD [facility] ..840.114 350.1.13.10 4.2.7.2.686 [id number] 107 [id number] [facility] 2021-01-02 10:45:00 2021-01-02 10:45:[address] [facility] [id number] [facility] 2020-12-21 10:52:25 2020-12-21 11:26:21 Office Visit Palmira Phillips [facility] ..840.114 350.1.13.10 4.2.7.2.686 [id number] [facility] 2020-12-21 10:30:00 2020-12-21 10:30:[address] 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 [id number] [facility] 2020-12-19 00:00:00 2020-12-19 00:00:00 Abstract Siria Anderson [facility] PLANS [facility]NAL & CHILD [facility] ..840.114 350.1.13.10 4.2.7.2.686 [id number] 107 [id number] [facility] 2020-12-07 00:00:00 2020-12-07 00:00:00 Telephone Siria Anderson [facility] PLANS [facility] & CHILD [facility] 1.2.840.114 350.1.13.10 4.2.7.2.686 [id number] 107 [id number] [facility] 2020-12-05 10:15:59 2020-12-05 10:54:56 Routine Visit Siria Anderson [facility] PLANS [facility] & CHILD [facility] 1.2.840.114 350.1.13.10 4.2.7.2.686 [id number] 107 [id number] [facility] 2020-12-05 10:15:59 2020-12-05 10:54:56 Routine Visit Siria Anderson [facility] PLANS [facility] & CHILD [facility] 1.2.840.114 350.1.13.10 4.2.7.2.686 [id number] 107 [id number] [facility] 2020-12-05 10:15:00 2020-12-05 10:15:00 Outpatient R SIRIA ANDERSON [facility] [id number] [facility] 2020-11-07 08:42:18 2020-11-07 09:41:48 Routine Visit Siria Anderson [facility] PLANS [facility] & CHILD [facility] 1.2.840.114 350.1.13.10 4.2.7.2.686 [id number] 107 [id number] [facility] 2020-11-07 08:45:00 2020-11-07 08:45:00 Outpatient R SIRIA ANDERSON [facility] [id number] [facility] 2020-11-01 00:00:00 2020-11-01 00:00:00 Telephone Siria Anderson [facility] PLANS [facility] CHILD [facility] 1.2.840.114 350.1.13.10 4.2.7.2.686 [id number] 107 [id number] [facility] 2020-10-27 00:00:00 2020-10-27 00:00:00 Patient Secure Msg Doctor Unassigned, [place] [facility] PLANS EXAMINER [facility] CHILD [facility] 1.2.840.114 350.1.13.10 4.2.7.2.686 [id number] 107 [id number] [facility] 2020-10-27 00:00:00 2020-10-27 00:00:00 Telephone Siria Anderson [facility] PLANS EXAMINER [facility] CHILD [facility] 1.2.840.114 350.1.13.10 4.2.7.2.686 [id number] 107 [id number] [facility] 2020-10-26 00:00:00 2020-10-26 00:00:00 Telephone Siria Anderson [facility] PLANS [facility] 1.2.840.114 350.1.13.10 4.2.7.2.686 [id number] 107 [id number] [facility] 2020-10-19 13:59:38 2020-10-19 14:29:38 Marketing Services Vice President Visit Ultrasound, Cristin Jones [facility] PLANS EXAMINER [facility] CHILD [facility] 1.2.840.114 350.1.13.10 4.2.7.2.686 [id number] [facility] 2020-10-19 14:00:00 2020-10-19 14:00:[address] [facility] [id number] [facility] 2020-10-19 00:00:00 2020-10-19 00:00:00 Abstract Siria Anderson [facility] PLANS [facility]AM[facility]ER [facility] 1.2.840.114 350.1.13.10 4.2.7.2.686 [id number] 107 [id number] [facility] 2020-10-10 08:57:2020-10-10 09:57:15 Initial Visit Sriia Anderson Divya [facility] PLANS [facility]AM[facility] MATERNAL & [facility]ILD [facility] 1.114 350.1.13.10 4.2.7.2.686 [id number] 107 [id number] [facility] 2020-10-10 08:30:00 2020-10-10 08:30:[address] [facility] [id number] [facility] 2020-10-10 00:00:00 2020-10-10 00:00:00 Orders Only Doctor Unassigned, [place] [facility] 1.114 350.1.13.10 4.2.7.2.686 [id number] [facility] 2020-06-24 16:00:00 2020-06-24 16:00:00 Outpatient R JULISSA MICHELE [facility] [id number] [facility] 2020-06-24 11:27:53 2020-06-24 11:49:24 Office Visit Julissa Michele [facility] 1.84.114 350.1.13.10 4.2.7.2.686 [id number] [facility] 2020-06-24 11:00:00 2020-06-24 11:00:00 Outpatient R JULISSA MICHELE [facility] [id number] [facility] 2020-06-14 00:00:00 2020-06-14 00:00:00 Patient Outreach Reji Cruz [facility] 1..114 350.1.13.10 4.2.7.2.686 [id number] [facility] 2020-06-08 19:38:00 2020-06-09 12:50:00 Emergency AnnEmma ramirez Wakili S Adum, Vivian L [facility] 1..114 350.1.13.10 4.2.7.2.686 [id number] [facility] 2020-06-08 18:59:31 2020-06-08 19:19:31 Urgent Care Provider, [facility] Saadia Lovett [facility] .114 350.1.13.10 4.2.7.2.686 [id number] [facility] 2020-06-08 18:40:00 2020-06-08 18:40:[address] [facility] [id number] [facility] 2020-05-24 13:16:03 2020-05-24 14:05:26 [facility] .114 350.1.13.10 4.2.7.2.686 [id number] [facility] 2020-05-24 13:00:00 2020-05-24 13:00:00 [id number] 2020-05-19 13:00:00 2020-05-19 13:00:00 Outpatient R YOVANY DIOR [facility] [id number] [facility] 2020-05-19 00:00:00 2020-05-19 00:00:00 Orders Only Doctor Unassigned, [place] [facility] .114 350.1.13.10 4.2.7.2.686 [id number] [facility] 2020-03-28 19:14:32 2020-03-28 19:51:[address] [facility] .114 350.1.13.10 4.2.7.2.686 [id number] [facility] 2020-03-28 19:20:00 2020-03-28 19:20:[address] [facility] [id number] [facility] 2020-03-28 00:00:00 2020-03-28 00:00:00 Letter (Out) Doctor Unassigned, [place] [facility] 1.2.840.114 350.1.13.10 4.2.7.2.686 [id number] [facility] [id number] [facility] 2020-01-15 08:15:00 2020-01-15 08:15:00 Outpatient R JAIME CLEMENT [facility] [id number] [facility] 2019-03-12 14:26:14 2019-03-12 23:59:[address] [facility] [id number] [facility] Results Test Description Test Time Test Comments Results Result Co mments Source [facility] [id number] 16:24:15* Test Item Value Reference Range Interpretation Comme [facility] Syphilis IgG/IgM (test code = 17078-0) Non-reactive Non-reactive VASHTI (test code = VASHTI) Non-reactive - No serologic evidence of T. pallidum infection. Cannot exclude incubating or early syphilis. Submit a second specimen in 2-4 weeks if syphilis is clinically suspected. Equivocal - Further testing to follow. Reactive - Further testing to follow. Lab Interpretation (test code = 95928-1) Normal [facility] [id number] 16:24:15* Test Item Value Reference Range Interpretation Comme [facility] Syphilis IgG/IgM (test code = 66996-4) Non-reactive Non-reactive VASHTI (test code = VASHTI) Non-reactive - No serologic evidence of T. pallidum infection. Cannot exclude incubating or early syphilis. Submit a second specimen in 2-4 weeks if syphilis is clinically suspected. Equivocal - Further testing to follow. Reactive - Further testing to follow. Lab Interpretation (test code = 39615-5) Normal [facility]2022-10-03 07:09:19* Test Item Value Reference Range Interpretation Comme nts HGB A1C (test code = 4548-4) 5.3 % 4.0-5.7 VASHTI (test code = VASHTI) Reference RangesNormal: <5.7%Prediabetes: 5.7 - 6.4%Diabetes: > 6.5% Lab Interpretation (test code = 61926-4) Normal [facility]C)2022-10-03 07:09:19* Test Item Value Reference Range Interpretation Comme nts HGB A1C (test code = 4548-4) 5.3 % 4.0-5.7 VASHTI (test code = VASHTI) Reference RangesNormal: <5.7%Prediabetes: 5.7 - 6.4%Diabetes: > 6.5% Lab Interpretation (test code = 23100-6) [facility]-AB WITH [id number] 06:09:39* Test Item Value Reference Range Interpretation Comme [facility] HIV Semi-quantitative (test code = 34927-5) 0.09 Negative VASHTI (test code = VASHTI) Non-reactive for HIV-1 antigen and HIV-1/HIV-2 antibodies. ?No laboratory evidence of HIV infection. ?Repeat in 2-4 weeks if acute HIV infection is suspected. [facility] [id number] 06:09:39* Test Item Value Reference Range Interpretation Comme [facility] HCV Ab (test code = 41478-1) Negative HCV Semi-Quantitative (test code = 75266-7) 0.03 [facility] [id number] 06:09:39* Test Item Value Reference Range Interpretation Comme nts HIV Semi-quantitative (test code = 20506-9) 0.09 Negative VASHTI (test code = VASHTI) Non-reactive for HIV-1 antigen and HIV-1/HIV-2 antibodies. ?No laboratory evidence of HIV infection. ?Repeat in 2-4 weeks if acute HIV infection is suspected. [facility] [id number] 06:09:39* Test Item Value Reference Range Interpretation Comme nts HCV Ab (test code = 17017-9) Negative HCV Semi-Quantitative (test code = 42601-0) 0.03 [facility] [id number] 05:35:17* Test Item Value Reference Range Interpretation [...] 31.7 g/dL 31.6-35.1 RDW-SD (test code = 67442-5) 38.7 fL 39.0-49.9 L RDW-CV (test code = 788-0) 13.0 % 12.0-15.5 PLT (test code = 777-3) 442 See_Comment H [Automated messa ge] The system which generated this result transmitted reference range: 166 - 358 10*3/?L. The reference range was not used to interpret this result as normal/abnormal. MPV (test code = 20065-1) 10.9 fL 9.5-12.9 NRBC/100 WBC (test code = 1760190808) 0.0 See_Comment [Automated [employer] ssage] The system which generated this result transmitted reference range: 0.0 - 10.0 /100 WBCs. The reference range was not used to interpret this result as normal/abnormal. NRBC x10^3 (test code = 7444171066) See_Comment [Automated messa ge] The system which generated this result transmitted reference range: 10*3/?L. The reference range was not used to interpret this result as normal/abnormal. GRAN MAT (NEUT) % (test code = 770-8) 61.3 % IMM GRAN % (test code = 9653707036) 0.20 % LYMPH % (test code = 736-9) 32.8 % MONO % (test code = 5905-5) 4.5 % EOS % (test code = 713-8) 0.9 % BASO % (test code = 706-2) 0.3 % GRAN MAT x10^3(ANC) (test code = 5303757377) 6.11 10*3/uL 1.88-7.09 IMM GRAN x10^3 (test code = 7869437188) 0.00-0.06 LYMPH x10^3 (test code = 731-0) 3.27 10*3/uL 1.32-3.29 MONO x10^3 (test code = 742-7) 0.45 10*3/uL 0.33-0.92 EOS x10^3 (test code = 711-2) 0.09 10*3/uL 0.03-0.39 BASO x10^3 (test code = 704-7) 0.03 10*3/uL 0.01-0.07 Lab Interpretation (test code = 16272-3) Abnormal [facility] WITH [id number] 05:35:17* Test Item Value Reference Range Interpretation Comme nts WBC (test code = 6690-2) 9.97 See_Comment [Automated [employer]] The system which generated this result transmitted reference range: 4.30 - 11.10 10*3/?L. The reference range was not used to interpret this result as normal/abnormal. RBC (test code = 789-8) 5.20 See_Comment [Automated [employer]] The system which generated this result [...] 31.7 g/dL 31.6-35.1 RDW-SD (test code = 81475-6) 38.7 fL 39.0-49.9 L RDW-CV (test code = 788-0) 13.0 % 12.0-15.5 PLT (test code = 777-3) 442 See_Comment H [Automated messa ge] The system which generated this result transmitted reference range: 166 - 358 10*3/?L. The reference range was not used to interpret this result as normal/abnormal. MPV (test code = 73342-3) 10.9 fL 9.5-12.9 NRBC/100 WBC (test code = 0131531511) 0.0 See_Comment [Automated [employer] ssage] The system which generated this result transmitted reference range: 0.0 - 10.0 /100 WBCs. The reference range was not used to interpret this result as normal/abnormal. NRBC x10^3 (test code = 1561430002) See_Comment [Automated messa ge] The system which generated this result transmitted reference range: 10*3/?L. The reference range was not used to interpret this result as normal/abnormal. GRAN MAT (NEUT) % (test code = 770-8) 61.3 % IMM GRAN % (test code = 0503012542) 0.20 % LYMPH % (test code = 736-9) 32.8 % MONO % (test code = 5905-5) 4.5 % EOS % (test code = 713-8) 0.9 % BASO % (test code = 706-2) 0.3 % GRAN MAT x10^3(ANC) (test code = 5723477698) 6.11 10*3/uL 1.88-7.09 IMM GRAN x10^3 (test code = 7021743991) 0.00-0.06 LYMPH x10^3 (test code = 731-0) 3.27 10*3/uL 1.32-3.29 MONO x10^3 (test code = 742-7) 0.45 10*3/uL 0.33-0.92 EOS x10^3 (test code = 711-2) 0.09 10*3/uL 0.03-0.39 BASO x10^3 (test code = 704-7) 0.03 10*3/uL 0.01-0.07 Lab Interpretation (test code = 36600-3) Abnormal [facility] [id number] 16:35:00* Test Item Value Reference Range Interpretation Comme nts POCT PREG (test code = 1605) Negative On board controls acceptable with C Line (test code = 3574) Yes POCT PREG LOT # (test code = 3575) POCT PREG TEST DATE ( test code = 3576) [facility] [id number] 16:35:00* Test Item Value Reference Range Interpretation Comme nts POCT PREG (test code = 1605) Negative On board controls acceptable with C Line (test code = 3574) Yes POCT PREG LOT # (test code = 3575) POCT PREG TEST DATE ( test code = 3576) [facility] [id number] 15:41:00* Test Item Value Reference Range Interpretation Comme nts POCT PREG (test code = 1605) Negative On board controls acceptable with C Line (test code = 3574) Yes POCT PREG LOT # (test code = 3575) POCT PREG TEST DATE ( test code = 3576) [facility] [id number] 15:41:00* Test Item Value Reference Range Interpretation Comme nts POCT PREG (test code = 1605) Negative On board controls acceptable with C Line (test code = 3574) Yes POCT PREG LOT # (test code = 3575) POCT PREG TEST DATE ( test code = 3576) [facility] [id number] 15:41:00* Test Item Value Reference Range Interpretation Comme nts POCT PREG (test code = 1605) Negative On board controls acceptable with C Line (test code = 3574) Yes POCT PREG LOT # (test code = 3575) POCT PREG TEST DATE ( test code = 3576) [facility] [id number] 15:41:00* Test Item Value Reference Range Interpretation Comme nts POCT PREG (test code = 1605) Negative On board controls acceptable with C Line (test code = 3574) Yes POCT PREG LOT # (test code = 3575) POCT PREG TEST DATE ( test code = 3576) [facility] [id number] 15:41:00* Test Item Value Reference Range Interpretation Comme nts POCT PREG (test code = 1605) Negative On board controls acceptable with C Line (test code = 3574) Yes POCT PREG LOT # (test code = 3575) POCT PREG TEST DATE ( test code = 3576) [facility] 16:42:23 ALCOHOL<10mg/dL03/03/2022 10:42 AM [facility]<10 [id number] Toxic>100 Depression of SEMICONDUCTOR WAFERS TESTER>400 Fatalities ReportedUnBaylor Scott & [facility] McKinneyBASI METABOLIC PANEL (NA, K, CL, CO2, GLUCOSE, BUN, CREATININE, CA)2022-03-03 16:23:10* Test Item Value Reference Range Interpretation Comme nts NA (test code = 1991983905) 138 mmol/L 135-145 K (test code = 3259934784) 3.9 mmol/L 3.5-5.0 CL (test code = 8690999317) 106 mmol/L 98-108 CO2 TOTAL (test code = 5127498238) 24 mmol/L 23-31 AGAP (test code = 3924074787) 2-16 BUN (test code = 5281820562) 11 mg/dL 7-23 GLUCOSE (test code = 6568028980) 95 mg/dL 70-110 CREATININE (test code = 1080688453) 0.62 mg/dL 0.50-1.04 CALCIUM (test code = 4848978198) 9.4 mg/dL 8.6-10.6 eGFR (test code = 0086527784) mL/min/1.73m2 VASHTI (test code = VASHTI) Association [...] or urine or abnormalities in imaging tests). [facility] WITH [id number] 16:19:13* Test Item Value Reference Range Interpretation Comme nts WBC (test code = 6690-2) See_Comment [[employer]] The system which generated this result transmitted reference range: 4.30 - 11.10 10*3/?L. The reference range was not used to interpret this result as normal/abnormal. RBC (test code = 789-8) See_Comment [[employer]] The system which generated this result transmitted [...] 32.8 g/dL 31.6-35.1 RDW-SD (test code = 76257-9) 38.5 fL 39.0-49.9 L RDW-CV (test code = 788-0) 12.9 % 12.0-15.5 PLT (test code = 777-3) See_Comment [Automated messa ge] The system which generated this result transmitted reference range: 166 - 358 10*3/?L. The reference range was not used to interpret this result as normal/abnormal. MPV (test code = 10686-7) 10.2 fL 9.5-12.9 NRBC/100 WBC (test code = 9408997323) See_Comment [Automated [employer] ssage] The system which generated this result transmitted reference range: 0.0 - 10.0 /100 WBCs. The reference range was not used to interpret this result as normal/abnormal. NRBC x10^3 (test code = 5437333510) See_Comment [Automated messa ge] The system which generated this result transmitted reference range: 10*3/?L. The reference range was not used to interpret this result as normal/abnormal. GRAN MAT (NEUT) % (test code = 770-8) 54.2 % IMM GRAN % (test code = 2802834506) 0.30 % LYMPH % (test code = 736-9) 39.1 % MONO % (test code = 5905-5) 5.1 % EOS % (test code = 713-8) 1.2 % BASO % (test code = 706-2) 0.1 % GRAN MAT x10^3(ANC) (test code = 8612338277) 3.94 10*3/uL 1.88-7.09 IMM GRAN x10^3 (test code = 5511832664) 0.00-0.06 LYMPH x10^3 (test code = 731-0) 2.84 10*3/uL 1.32-3.29 MONO x10^3 (test code = 742-7) 0.37 10*3/uL 0.33-0.92 EOS x10^3 (test code = 711-2) 0.09 10*3/uL 0.03-0.39 BASO x10^3 (test code = 704-7) 0.01-0.07 Lab Interpretation (test code = 20943-4) Abnormal [facility] [id number] 20:48:00* Test Item Value Reference Range Interpretation Comme nts POCT PREG (test code = 1605) Negative On board controls acceptable with C Line (test code = 3574) Yes POCT PREG LOT # (test code = 3575) POCT PREG TEST DATE ( test code = 3576) [facility] URINALYSIS W SPECIFIC [id number] 22:32:00* Test Item Value Reference Range Interpretation [...] and interpretation of all internal controls [facility] URINALYSIS W SPECIFIC [id number] 22:32:00* Test Item Value Reference Range Interpretation [...] development and interpretation of all internal controls [facility] [id number] 15:36:00* Test Item Value Reference Range Interpretation Comme nts POCT PREG (test code = 1605) Negative On board controls acceptable with C Line (test code = 3574) Yes POCT PREG LOT # (test code = 3575) POCT PREG TEST DATE ( test code = 3576) [facility] Notes Date/Time Note Provider Source 2022-12-05 10:12:02 Formatting of this n ote might be different from the original. Called to speak with [facility] in [place]. They state they did not ever get the prescription. Contacted the patient and she also has not received the prescription. She is requesting they be resent to [facility] in [place]. Re-ordered original prescription and sent to [facility] per patient request. [facility] 2022-12-04 18:01:37 Formatting of this n ote might be different from the original. Thao Lang is a 27 year [facility] are wanting the prescriptions transferred. Please advise azelastine 137 mcg (0.1 %) nasal spray vitmylquxaltdgq-gzoyhpbavizqyib-BS (BROMFED DM) 2-30-10 mg/5 mL syrup fluticasone propionate 50 mcg/actuation nasal spray methylPREDNISolone (MEDROL, KRISTA,) 4 mg tablets [facility] [place], [place] - [address] [place] [address] AT [facility] & [address] [facility] [address] [address] [facility]"
[2023-12-29] MEDS ORDERED: NA CHLORIDE 0.9% 1,000 ML ONE (11:16)
[2023-12-29 11:52] LABS: Barbiturates NEGATIVE (NEGATIVE); Benzodiazepines NEGATIVE (NEGATIVE); Cocaine NEGATIVE (NEGATIVE); METHAMPHETAM NEGATIVE (NEGATIVE); Methadone NEGATIVE (NEGATIVE); Opiates NEGATIVE (NEGATIVE); Phencyclidine NEGATIVE (NEGATIVE); THC Cannibis NEGATIVE (NEGATIVE)
[2023-12-29 12:04] LABS: PT Prothrombin Time 11.3 SECONDS (9.4-12.5); PTT, Activated Partial Thromb 31.9 SECONDS (24.3-36.9); Protime INR 1.01
[2023-12-29 12:09] LABS: Absolute Eosinophils 0.1 K/uL (0-0.5); Absolute Lymphocytes (CBC) 2.6 K/uL (0.7-4.9); Absolute Monocytes 0.4 K/uL (0.1-1.3); Absolute Neutrophil 3.7 K/uL (1.8-8.0); Basophils % 0.4 % (0-1.3); Eosinophils % 1.7 % (0-4.4); Hematocrit 35.5 % (36.0-45.0); Hemoglobin 11.3 g/dL (12.0-15.0); Lymphocytes % 37.4 % (15.3-44.8); MCH 24.4 pg (27.0-35.0); MCHC 31.9 g/dL (32.0-36.0); MCV 76.4 fL (80-100); MPV 8.2 fL (7.6-11.3); Monocytes % 6.3 % (3.3-12.3); Neutrophils % 54.2 % (41.7-73.7); Platelets 386 thou/uL (152-406); RBC Red Blood Cell Count 4.65 M/uL (3.86-4.86); Red Cell Distribution Width 15.5 % (12.1-15.2)
[2023-12-29 12:14] LABS: ALT/SGPT 44 U/L (13-56); AST/SGOT 24 U/L (15-37); Albumin 3.4 g/dL (3.4-5.0); Albumin/Globulin Ratio 0.9 (1.1-1.8); Alkaline Phosphatase 79 U/L (45-117); Anion Gap 6.7 mEq/L (5.0-15.0); BUN Blood Urea Nitrogen 10 mg/dL (7-18); Bicarbonate 27 mEq/L (21-32); Bilirubin Total 0.3 mg/dL (0.2-1.0); Globulin 3.8 g/dL (2.3-3.5); Glomerular Filtration Rate 121 ml/min (=/>90); Glucose Level 92 mg/dL (74-106); Potassium 3.7 mEq/L (3.5-5.1); Protein, Total 7.2 g/dL (6.4-8.2); Sodium Level 139 mEq/L (136-145)
--- NOTE | 2023-12-29 12:32 | ER ---
Nurse's Notes [facility] Name: Thao Lang Age: 28 yrs Sex: Female : 1995 Arrival Date: 12/29/2023 Time: 10:51 Bed 20 Private MD: Diagnosis: Generalized anxiety disorder Presentation: 12/28 11:08 Chief complaint: Chief complaint: Patient states: PT STATES WAS AT WORK AND WAS NOT db ABLE TO STAY ON TASK SO WAS SENT HOME FROM WORK. DAD PICKED PT UP AND WHILE IN CAR PT BECAME HOT FELT LIKE NEEDED SOME AIR AND GOT OUT OF THE CAR WHILE AT A STOP LIGHT. DAD BECAME CONCERNED AND CALLED THE POLICE. PT DENIES SI/HI. STATES JUST NEEDED SOME AIR. STATES HAS DIFFICULTY STAYING FOCUSED RECENTLY. 11:09 Coronavirus screen: Client denies travel out of the [place] in the last 14 days. At this db time, the client does not indicate any symptoms associated with coronavirus-19. Ebola Screen: Patient negative for fever greater than or equal to 101.5 degrees Fahrenheit, and additional compatible Ebola Virus Disease symptoms Patient denies exposure to infectious person. Patient denies travel to an Ebola-affected area in the 21 days before illness onset. No symptoms or risks identified at this time. Initial Sepsis Screen: Does the patient meet any 2 criteria? No. Patient's initial sepsis screen is negative. Does the patient have a suspected source of infection? No. Patient's initial sepsis screen is negative. Risk Assessment: Do you want to hurt yourself or someone else? Patient reports no desire to harm self or others. Onset of symptoms was December 29, 2023. 11:09 Method Of Arrival: Ambulatory db 11:09 Acuity: IZABELLA 3 db Triage Assessment: 11:12 General: Appears in no apparent distress. comfortable, Behavior is calm, cooperative. db Pain: Denies pain. Neuro: Level of Consciousness is awake, alert, obeys commands, Oriented to person, place, time, situation. Respiratory: Airway is patent Respiratory effort is even, unlabored, Respiratory pattern is regular, symmetrical. Historical: - Allergies: 11:12 No Known Allergies; db - PMHx: 11:12 Asthma; ECTOPIC ; db - PSHx: 11:12 section; D\\T\\C; db - Immunization history:: Adult Immunizations unknown. - Infectious Disease History:: Denies. - Social history:: Smoking status: Patient/guardian denies using tobacco. Screenin:31 [facility] ED Fall Risk Assessment (Adult) History of falling in the last 3 months, kc6 including since admission No falls in past 3 months (0 pts) Confusion or Disorientation No (0 pts) Intoxicated or Sedated No (0 pts) Impaired Gait No (0 pts) Mobility Assist Device Used No (0 pt) Altered Elimination No (0 pt) Score/Fall Risk Level 0 - 2 = Low Risk Oriented to surroundings. Abuse screen: Denies threats or abuse. Denies injuries from another. Nutritional screening: No deficits noted. Tuberculosis screening: No symptoms or risk factors identified. Assessment: 11:31 General: Appears in no apparent distress. comfortable, obese, well groomed, well kc6 developed, Behavior is cooperative, appropriate for age, restless. Pain: Denies pain. Neuro: Level of Consciousness is awake, alert, obeys commands, Oriented to person, place, time, situation, Appropriate for age Denies blurred vision headache. Cardiovascular: Capillary refill < 3 seconds. Respiratory: Airway is patent Trachea midline Respiratory effort is even, unlabored, Respiratory pattern is regular, symmetrical. GI: No signs and/or symptoms were reported involving the gastrointestinal system. : No signs and/or symptoms were reported regarding the genitourinary system. Urine is cloudy. EENT: No signs and/or symptoms were reported regarding the EENT system. Derm: No signs and/or symptoms reported regarding the dermatologic system. Skin is intact, is healthy with good turgor, Skin is pink, warm \\T\\ dry. Musculoskeletal: No signs and/or symptoms reported regarding the musculoskeletal system. Circulation, motion, and sensation intact. Capillary refill < 3 seconds, Range of motion: intact in all extremities. 11:31 Reassessment: pt denies SI or HI. pt states she feels as though she's not getting kc6 enough sleep and hasn't been taking her medications the way she should. 12:41 Reassessment: Patient appears in no apparent distress at this time. No changes from kc6 previously documented assessment. Patient and/or family updated on plan of care and expected duration. Pain level reassessed. Patient is alert, oriented x 3, equal unlabored respirations, skin warm/dry/pink. Psych: 11:31 [place] Suicide Severity Screening: In the past month, have you wished you were kc6 or wished you could go to sleep and not wake up? Patient responds "No." "In the past month, have you actually had any thoughts of killing yourself?" Patient responds "no." "In your lifetime, have you ever done anything, started to do anything, or prepared to do anything to end your life?" Patient responds "yes." Patient reports suicidal intent occurred greater than 3 months prior. Subjective: Delusions are denied, Hallucinations are denied. Objective: Patient is cooperative, Speech is normal, Affect is appropriate. Interventions: Urine collected and sent for urine drug test. Safety Checks: Personal items have not been removed. Door is closed to patient's room. Visitors are present. Pt denies substance abuse. Vital Signs: 11:09 BP 133 / 65; Pulse 84; Resp 18; Temp 98.6; Pulse Ox 100% ; Weight 130.63 kg; Height 5 db ft. 4 in. ; Pain 0/10; 11:51 BP 129 / 80; Pulse 77; Resp 19 S; Pulse Ox 100% on R/A; kc6 12:41 BP 130 / 79; Pulse 75; Resp 15 S; Pulse Ox 99% on R/A; kc6 11:09 Body Mass Index 49.43 (130.63 kg, 162.56 cm) db 11:09 Pain Scale: Adult db ED Course: 10:55 Patient arrived in ED. im 10:59 Adeel Garner [facility]-C [facility] 10:59 Unruly Cody MD is Attending Physician. dr5 11:01 Marjorie Del Toro, LARON is Primary Nurse. kc6 11:12 Triage completed. db 11:12 Arm band placed on Patient placed in an exam room. db 11:31 Patient has correct armband on for positive identification. Bed in low position. Call kc light in reach. Side rails up X 1. Adult w/ patient. Pulse ox on. NIBP on. Door closed. Noise minimized. Lights dimmed. Warm blanket given. Pillow given. 11:31 Urine Drug Screen Sent. kc6 11:31 Patient maintains SpO2 saturation greater than 95% on room air. kc6 11:51 Missed attempt(s): 22 gauge in right forearm. Inserted saline lock: 20 gauge in left kc6 forearm, using aseptic technique. Blood collected. Flushed with 10 mL NS. 11:54 Provided Education on: use of call light. kc6 12:41 No provider procedures requiring assistance completed. IV discontinued, intact, kc6 bleeding controlled, No redness/swelling at site. Pressure dressing applied. Administered Medications: 11:46 Drug: NS 0.9% IV 1000 ml IV at 1000 ml once Route: IV; Rate: 1000 ml; Site: left kc6 forearm; 12:30 Follow up: Response: No adverse reaction; IV Status: Completed infusion; IV Intake: kc6 1000ml Medication: 12:41 VIS not applicable for this client. kc6 Intake: 12:30 IV: 1000ml; Total: 1000ml. kc6 Outcome: 12:31 Discharge ordered by . dr5 12:41 Discharged to home ambulatory, with family, kc6 12:41 Condition: good 12:41 Discharge instructions given to patient, family, Instructed on discharge instructions, follow up and referral plans. Demonstrated understanding of instructions, follow-up care, 12:42 Patient left the ED. kc6 Signatures: Marjorie Del Toro RN RN kc6 Keisha Prince, RN RN db Irma Lomas Dustin, RISK ASSESSMENT CONSULTANT-C RISK ASSESSMENT CONSULTANT-Cdr5 Corrections: (The following items were deleted from the chart) 11:12 11:08 Chief complaint: db db 11:58 11:31 Reassessment: pt denies SI or HI. kc6 kc6
--- NOTE | 2023-12-29 12:32 | EDPHYS ---
Physician Documentation [facility] Name: Thao Lang Age: 28 yrs Sex: Female : 1995 Arrival Date: 12/29/2023 Time: 10:51 Bed 20 Private MD: ED Physician Unruly Cody HPI: 12/28 11:40 This 28 yrs old Female presents to ER via Ambulatory with complaints of dr5 Anxiety, Feeling Hot. 11:40 Onset: The symptoms/episode began/occurred last month. Associated signs and symptoms:. dr5 The patient reports fever, not measured (subjective). Pt is a 28 year old coming in with manic episode / internal stimuli presenting with subjective fever and not being able to focus. Father at bedside stating he wants referrals for an OBGYN and Psychiatrist for further management. Pt denies suicidal and homicidal ideation.. Historical: - Allergies: 11:12 No Known Allergies; db - PMHx: 11:12 Asthma; ECTOPIC ; db - PSHx: 11:12 section; D\T\C; db - Immunization history:: Adult Immunizations unknown. - Infectious Disease History:: Denies. - Social history:: Smoking status: Patient/guardian denies using tobacco. ROS: 12:20 Constitutional: as per hpi dr5 Exam: 12:29 Constitutional: This is a well developed, well nourished patient who is awake, alert, dr5 and in no acute distress. Head/Face: Normocephalic, atraumatic. Chest/axilla: Normal chest wall appearance and motion. Nontender with no deformity. No lesions are appreciated. Cardiovascular: Regular rate and rhythm with a normal S1 and S2. Normal PMI, no JVD. No pulse deficits. Respiratory: Lungs have equal breath sounds bilaterally, clear to auscultation. No rales, rhonchi or wheezes noted. No increased work of breathing, no retractions or nasal flaring. Abdomen/GI: Soft, non-tender, non-distended 12:29 Psych: Behavior/mood is pleasant, cooperative, Affect is flat, Oriented to person, place, time, Patient has no thoughts/intents to harm self or others. Judgement / Insight is Delusions/hallucinations Pt has internal stimuli spontaneously throughout exam.. Vital Signs: 11:09 BP 133 / 65; Pulse 84; Resp 18; Temp 98.6; Pulse Ox 100% ; Weight 130.63 kg; Height 5 db ft. 4 in. ; Pain 0/10; 11:51 BP 129 / 80; Pulse 77; Resp 19 S; Pulse Ox 100% on R/A; kc6 12:41 BP 130 / 79; Pulse 75; Resp 15 S; Pulse Ox 99% on R/A; kc6 11:09 Body Mass Index 49.43 (130.63 kg, 162.56 cm) db 11:09 Pain Scale: Adult db MDM: 11:00 Patient medically screened. dr5 12:32 Differential diagnosis: Drug overdose, Bipolar Disorder, Anxiety. Data reviewed: vital dr5 signs, nurses notes. Consideration of Admission/Observation Escalation of care including admission/observation considered. Considered admission if patient was suicidal / homicidal . Historians other than the Patient: Parent: Father at bedside. Care significantly affected by the following chronic conditions: Asthma. Care significantly affected by the following Social Determinants of Health: Poor access to healthcare and/or lack of insurance, Poor access to transportation, Problems related to employment. Counseling: I had a detailed discussion with the patient and/or guardian regarding the historical points, exam findings, and any diagnostic results supporting the discharge/admit diagnosis, the presence of at least one elevated blood pressure reading (>120/80) during this emergency department visit, lab results, the need for outpatient follow up, for definitive care, a psychiatrist. Medication response: NS. Response to treatment: the patient's symptoms have resolved after treatment. ED course: Pt bloodwork was unremarkable. Had long discussion with Father about psychiatrist follow up and PCP establishment. Pt currently not suicidal / homicidal. Pt states she is feeling better. I gave patient psychiatric resources that we have at [facility] and other resources available to them. All questions answered.. 12/28 11:16 Order name: Acetaminophen; Complete Time: 12:15 dr5 12/28 11:16 Order name: CBC with Diff; Complete Time: 12:13 dr5 12/28 11:16 Order name: ETOH Level; Complete Time: 12:13 dr5 12/28 11:16 Order name: PT-INR; Complete Time: 12:13 dr5 12/28 11:16 Order name: Ptt, Activated; Complete Time: 12:13 dr5 12/28 11:16 Order name: Salicylate; Complete Time: 12:25 dr5 12/28 11:16 Order name: Urine Drug Screen; Complete Time: 11:56 dr5 12/28 11:16 Order name: CMP; Complete Time: 12:15 dr5 12/28 11:16 Order name: IV Saline Lock; Complete Time: 11:46 dr5 12/28 11:16 Order name: Labs collected and sent; Complete Time: 11:46 dr5 12/28 11:16 Order name: Suicide Screening ([place]); Complete Time: 11:21 dr5 Administered Medications: 11:46 Drug: NS 0.9% IV 1000 ml IV at 1000 ml once Route: IV; Rate: 1000 ml; Site: left kc6 forearm; 12:30 Follow up: Response: No adverse reaction; IV Status: Completed infusion; IV Intake: kc6 1000ml Disposition Summary: 12/29/23 12:31 Discharge Ordered Notes: Location: Home dr5 Condition: Stable dr5 Diagnosis - Generalized anxiety disorder dr5 Followup: dr5 - With: Emergency Department - When: As needed - Reason: Worsening of condition Followup: dr5 - With: Private Physician - When: 2 - 3 days - Reason: Recheck today's complaints, Continuance of care, Re-evaluation by your physician Discharge Instructions: - Discharge Summary Sheet dr5 Forms: - Medication Reconciliation Form dr5 - Patient Portal Instructions dr5 - Leadership Thank You Letter dr5 Signatures: Dispatcher [employer] Marjorie Miller RN LARON kc6 Keisha Prince RN RN db Adeel Garner, I&C TECHNICIAN-C I&C TECHNICIAN-Cdr5 Corrections: (The following items were deleted from the chart) 11:17 11:17 ACETAMINOPHEN+C.LAB.BRZ ordered. EDMS EDMS 11:17 11:17 CBC+H.LAB.BRZ ordered. EDMS EDMS 11:17 11:17 ETHANOL+C.LAB.BRZ ordered. EDMS EDMS 11:17 11:17 PROTIME (+INR)+COAG.LAB.BRZ ordered. EDMS EDMS 11:17 11:17 PTT, ACTIVATED+COAG.LAB.BRZ ordered. EDMS EDMS 11:17 11:17 SALICYLATE+C.LAB.BRZ ordered. EDMS EDMS 11:17 11:17 URINE DRUG SCREEN+UC.LAB.BRZ ordered. EDMS EDMS 11:17 11:17 COMPREHENSIVE METABOLIC PANEL+C.LAB.BRZ ordered. EDMS EDMS 12:35 12:32 ED course: Pt bloodwork was unremarkable. Had long discussion with Father about dr5 psychiatrist follow up and PCP establishment.. dr5
[2023-12-29 12:50] VITALS: BP 130/79
[2023-12-29 13:00] VITALS: TEMP 97.9; O2SAT 100
== END 2023-12-29 12:42 | disposition home or self-care (01) ==
LOC: ER 10:51
DX: F41.1 Generalized anxiety disorder (principal)
CPT/HCPCS: 85025; 36415; 85610; 85730; 80053; 80307; 96360; 99284; 80143; 80179; 82077; J7030

== ENCOUNTER 2024-03-27 21:29 | Emergency (ER) | payer OTHER ==
--- OUTSIDE RECORDS SUMMARY | 2024-03-27 21:34 | XMS REPORT | Continuity of Care Document ---
Author Name Unknown Address [address] [facility] [place] [address] [facility] Address [address] [facility] [place] [address] Care Team Providers Care [employer] Assist[employer] Name Role Phone ESTEVAN ADAMS Primary Care Physician JEB Souza Attending Clinician Unavailable MARILOU JARAMILLO Attending Clinician Unavailable YAN POPE Attending Clinician Unavailable ESTEVAN ADAMS Attending Clinician Unavail OMKAR Barkley Attending Clinician OMKAR Bender Attending Clinician JULISSA Marti Attending Clinician Unavailable JENNIFER PURI Attending Clinician Unavaila lisa GC_GCBZW_Kadiyala_S Attending Clinician Unavailmanuel Adams Estevan SCHAEFFER Attending Clinician + Jessika Manrique MD Attending Clinician [phone] JESSIKA MANRIQUE Attending Clinician Unavailable Unknown, Attending Attending Clinician UnavailJennifer Limon CNM Attending Clinician [phone] Doctor Unassigned, [place] Attending Clinician U SIRIA Dugan Attending Clinician Unavailab TIANA Argueta Attending Clinician Unavailable Tiana Antonio MD Attending Clinician Visit, [facility] Nurse Attending Clinician Unava ilable Anderson KETTLE GIRL, Anettemanuel R Attending Clinician + [phone] Jenna LARRY, Maisha Attending Clinician Unavailable EASTON RIOJAS Attending Clinician Unavailable Nurse, Naun ch[facility] Attending Clini luis felipe Unavailable JODEE ALMAZAN Attending Clinician Unavailable King MARC, Jodee Suarez Attending Clinician [phone] Zbigniew Fernandez MD Attending Clinician + [phone] Glen Mcgraw MD Attending Clinician [phone] Marlon MARC, Leonel Attending Clinician [phone] [facility] UnavailKatelyn Mullen MD Attending Clinician [phone] KATELYN CRUZ Attending Clinician Unavailable KATELYN CRUZ Attending Clinician Unavailable Lab[facility] Attending Clinician Unavailable Aaron Agosto Attending Clinician + AARON ALICEA Attending Clinician Unavail able [facility] Dalila anupam Hsieh MD, Silvana Attending Clinician [phone] SILVANA HSIEH Attending Clinician Unavailable SILVANA HSIEH Attending Clinician Unavailable Sukhjinder SHARMA, Bo Hunt Attending Clinician [phone] BO RIVERA Attending Clinician UnavailAracely RAMÍREZP, Nguyễn Attending Clinician [phone] AMAYA PEÑA Attending Clinician Unavailable Casey SHARMA, Amaya Attending Clinician [phone] Palmira Phillips Attending Clinician Unavailyahaira Escoto MD, Yair Borjas Attending Clinician [phone] Sherman MARC, Gianni Chou Attending Clinician [phone] Robbie Wolfe MD, Cristin Attending Clinician + Julissa Michele MD Attending Clinician [phone] Reji Cruz DO Attending Clinician [phone] Seth KETTLE GIRL, Emma Attending Clinician + [phone] Tre MARC, Zoe Stinson Attending Clinician [phone] Provider, [facility] Attending Clinician Un available Saadia Arce Attending Clinician [phone] SAADIA LOVETT Attending Clinician Unavailable Delano Islas Attending Clinician [phone] DELANO NELSON Attending Clinician UnavailYOVANY Barnhart Attending Clinician Unavailable JAIME CLEMENT Attending Clinician Unavailable GC_GCBZW_Kadiyalmanuel_S Admitting Clinician UnavailJODEE León Admitting Clinician Unavailable Jodee Almazan MD Admitting Clinician [phone] Julissa Michele MD Admitting Clinician [phone] Payers Payer Name Policy Type Policy Number Effective Date Expirati on Date Source [employer] [employer] [employer] [id number] 2016 00:00:00 [facility] AMANDA DOYLEOrestes COPAY FOCUS 9 [id number] 2023 00:00:00 [facility] [id number] 2023 00:00:00 [place] [employer] [id number] 2022 00:00:00 MEDICAID PENDING PENDING 2020 00:00:00 Problems Condition Name Condition Details Condition Category Status Onset Date Resolution Date Last Treatment Date Treating Clinician Comments Source Presence of intrauteri ne contracept yamila device Presence of intrauteri ne contracept yamila device Disease Active 10-04 00:00: 00 [facility] History of abnormal cervical Pap smear History of abnormal cervical Pap smear Disease Active 10-04 00:00: 00 Overview: Formattin g of this note might be different from the original. 09/2020 LGSIL [facility] Folliculit is Folliculit is Disease Active 12 00:00: 00 [facility] Flu vaccine need Flu vaccine need Disease Active 3-30 00:00: 00 [facility] Vaginal lesion Vaginal lesion Disease Active 3 00:00: 00 [facility] Research study patient Research study patient Disease Active 2-16 00:00: 00 Overview: Formattin g of this note might be different from the original. PACT (fellow) [facility] Elevated blood-pres sure reading, without diagnosis of hypertensi on Elevated blood-pres sure reading, without diagnosis of hypertensi on Disease Active 2-15 00:00: 00 [facility] COVID COVID Disease Active 2-01 00:00: 00 [facility] GBS (group B Streptococ cus carrier), +RV culture, currently GBS (group B Streptococ cus carrier), +RV culture, currently Disease Active 1-27 00:00: 00 Overview: Formattin g of this note might be different from the original. Address in labor and delivery. [facility] Upper respirator y symptom Upper respirator y symptom Disease Active 1-18 00:00: 00 [facility] Anemia of mother in , antepartum Anemia of mother in , antepartum Disease Active 2020-03 2-16 00:00: 00 [facility] Abnormal quad screen Abnormal quad screen Disease Active 2020-03 2-16 00:00: 00 [facility] Abnormal glandular Papanicola ou smear of cervix Abnormal glandular Papanicola ou smear of cervix Disease Active 8-04 00:00: 00 Overview: Formattin g of this note might be different from the original. LGSIL on 2020 pap smear, needs repeat in 12 months [facility] Supervisio n of high risk in third trimester Supervisio n of high risk in third trimester Disease Active 7- 00:00: 00 [facility] SAB (spontaneo us ) SAB (spontaneo us ) Disease Active 7-19 00:00: 00 [facility] in first trimester with history of ectopic in first trimester with history of ectopic Disease Active 7 00:00: 00 [facility] Primigravi da in third trimester Primigravi da in third trimester Disease Active 7-19 00:00: 00 [facility] BMI 45.0-49.9, adult BMI 45.0-49.9, adult Disease Active 7-19 00:00: 00 [facility] History of ectopic History of ectopic Disease Active 4- 00:00: 00 [facility] Screening examinatio n for STD (sexually transmitte d disease) Screening examinatio n for STD (sexually transmitte d disease) Disease Active - 00:00: 00 [facility] Morbid obesity Morbid obesity Disease Active 1-06 00:00: 00 [facility] Allergies, Adverse Reactions, Alerts Allergy Name Allergy Type Status Severity Reaction(s) Onset Date Inactive Date Treating Clinician Comments Source NO KNOWN ALLERGIE S Drug Class Active [facility] Social History Social Habit Start Date Stop Date Quantity Comments Source ASSERTION Not [facility] - External Sexual orientation 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 History SDOH Alcohol Std Drinks [facility] History SDOH Alcohol Binge [facility] Gender identity [facility] Alcoholic beverage intake 2024-02-24 00:00:00 2024-02-24 00:00:00 Current drinker of alcohol (finding) [facility] - External History of Social function 2024-02-24 00:00:00 2024-02-24 00:00:00 [facility] - External Alcohol Comment 2024-02-24 00:00:00 2024-02-24 00:00:00 occasionally [facility] - External Tobacco use and exposure 2024-02-24 00:00:00 2024-02-24 00:00:00 Smokeless tobacco non-user [facility] - External Alcohol intake 2022-12-02 00:00:00 2022-12-02 00:00:00 Current drinker of alcohol (finding) [facility] Exposure to SARS-CoV-2 (event) 2022-04-20 00:00:00 2022-04-30 10:31:[address] [facility] Sex 2021-07-03 01:43:03 2021-07-03 01:43:03 Female (finding) [facility] - External Sex assigned at 1995 00:00:00 1995 00:00:00 [facility] - External Smoking Status Start Date Stop Date Source Never smoked tobacco [facility] - External Medications Ordered Medication Name Filled Medication Name Start Date Stop Date Current Medication? Ordering Clinician Indication Dosage Frequency Signature (SIG) Comments Components Source azelastine 137 mcg (0.1 %) nasal spray 12-05 00:00: 00 Yes [id number] 1{spray } Use 1 [place]eter in each nostril in the morning and 1 [place]eter in the evening. Use in each nostril as directed [facility] bromphenira mine-pseudo ephedrine-D M (BROMFED DM) 2-30-10 mg/5 mL syrup 12-05 00:00: 00 Yes [id number] 10mL Take 10 mL by mouth 4 (four) times daily as needed for Congestion /Allergies , Cough or Cold symptoms. [facility] fluticasone propionate 50 mcg/actuati on nasal spray 12-05 00:00: 00 Yes [id number] 1{spray } Use 1 [place]eter in each nostril in the morning. [facility] methylPREDN ISolone (MEDROL, KRISTA,) 4 mg tablets 12-05 00:00: 00 Yes [id number] Take by mouth SEE-INSTRU CTIONS. follow package directions [facility] bromphenira mine-pseudo ephedrine-D M (BROMFED DM) 2-30-10 mg/5 mL syrup 12-02 00:00: 00 Yes [id number] 10mL Take 10 mL by mouth 4 (four) times daily as needed for Congestion /Allergies , Cough or Cold symptoms. [facility] azelastine 137 mcg (0.1 %) nasal spray 12-02 00:00: 00 Yes [id number] 1{spray } Use 1 [place] in each nostril in the morning and 1 [place] in the evening. Use in each nostril as directed [facility] fluticasone propionate 50 mcg/actuati on nasal spray 12-02 00:00: 00 Yes [id number] 1{spray } Use 1 [place] in each nostril in the morning. [facility] methylPREDN ISolone (MEDROL, KRISTA,) 4 mg tablets 12-02 00:00: 00 Yes [id number] Take by mouth SEE-INSTRU CTIONS. follow package directions [facility] metroNIDAZO LE 500 mg tablet 10-04 00:00: 10-05 04:59 :00 No [id number] 2000mg Take 4 tablets by mouth once now for 1 dose. [facility] copper (PARAGARD T 380A) IUD 1 Intra Uterine Device 04-30 17:45: 00 04-30 17:01 :00 No [id number] 1{IUD} [facility] amoxicillin -clavulanat e (AUGMENTIN) 875-125 mg per tablet 2021-03 00:00: 00 02-01 05:59 :00 No [id number] 1{tbl} Take 1 tablet by mouth in the morning and 1 tablet in the evening. Do all this for 7 days. [facility] phenazopyri dine 100 mg tablet 2021-03 00:00: 00 01-27 04:59 :00 No [id number] 200mg Take 2 tablets by mouth in the morning and 2 tablets at noon and 2 tablets in the evening. Do all this for 2 days. [facility] levonorgest rel-ethinyl estradiol (SRONYX) 0.1-20 mg-mcg per tablet 12-06 00:00: 00 10-02 00:00 :00 No [id number] 1{tbl} Take 1 tablet by mouth in the morning. [facility] ondansetron 4 mg disintegrat ing tablet 07-03 00:00: 00 10-02 00:00 :00 No [id number] 4mg Take 1 tablet by mouth every 8 (eight) hours as needed for Nausea and Vomiting (N/V). [facility] norethindro ne 0.35 mg tablet 3-30 00:00: 00 10-02 00:00 :00 No [id number] 1{tbl} Take 1 tablet by mouth daily. [facility] Immunizations Ordered Immunization Name Filled Immunization Name Date Status Comments Source HPV9 2021-05-17 00:00:[address] [facility] HPV9 2021-05-17 00:00:[address] [facility] HPV9 2021-05-17 00:00:00 Completed [facility] 2021-05-17 00:00:00 Completed [facility] 2021-05-17 00:00:00 Completed [facility] 2021-05-17 00:00:00 Completed [facility] 2021-05-17 00:00:[address] [facility] HPV9 2021-05-17 00:00:00 Completed [facility] 2021-05-17 00:00:[address] [facility] HPV9 2021-05-17 00:00:[address] [facility] HPV9 2021-05-17 00:00:[address] [facility] HPV9 2021-05-17 00:00:[address] [facility] HPV9 2021-05-17 00:00:[address] [facility] HPV9 2021-05-17 00:00:[address] [facility] HPV9 2021-05-17 00:00:[address] [facility] HPV9 2021-05-17 00:00:[address] [facility] HPV9 2021-05-17 00:00:[address] [facility] HPV9 2021-05-17 00:00:[address] [facility] HPV9 2021-05-17 00:00:[address] [facility] HPV9 2021-05-17 00:00:[address] [facility] TDAP 2021-02-22 00:00:[address] [facility] TDAP 2021-02-22 00:00:[address] [facility] TDAP 2021-02-22 00:00:[address] [facility] TDAP 2021-02-22 00:00:[address] [facility] TDAP 2021-02-22 00:00:[address] [facility] TDAP 2021-02-22 00:00:[address] [facility] TDAP 2021-02-22 00:00:[address] [facility] TDAP 2021-02-22 00:00:[address] [facility] TDAP 2021-02-22 00:00:[address] [facility] TDAP 2021-02-22 00:00:[address] [facility] TDAP 2021-02-22 00:00:[address] [facility] TDAP 2021-02-22 00:00:[address] [facility] TDAP 2021-02-22 00:00:[address] [facility] TDAP 2021-02-22 00:00:[address] [facility] TDAP 2021-02-22 00:00:[address] [facility] TDAP 2021-02-22 00:00:[address] [facility] TDAP 2021-02-22 00:00:[address] [facility] TDAP 2021-02-22 00:00:[address] [facility] TDAP 2021-02-22 00:00:[address] [facility] TDAP 2021-02-22 00:00:[address] [facility] SARS-COV-2 COVID-19 MAURICIO/J&J VACCINE 2020-07-26 00:00:[address] [facility] SARS-COV-2 COVID-19 MAURICIO/J&J VACCINE 2020-07-26 00:00:[address] [facility] SARS-COV-2 COVID-19 MAURICIO/J&J VACCINE 2020-07-26 00:00:[address] [facility] SARS-COV-2 COVID-19 MAURICIO/J&J VACCINE 2020-07-26 00:00:[address] [facility] SARS-COV-2 COVID-19 MAURICIO/J&J VACCINE 2020-07-26 00:00:[address] [facility] SARS-COV-2 COVID-19 MAURICIO/J&J VACCINE 2020-07-26 00:00:[address] [facility] SARS-COV-2 COVID-19 MAURICIO/J&J VACCINE 2020-07-26 00:00:[address] [facility] SARS-COV-2 COVID-19 MAURICIO/J&J VACCINE 2020-07-26 00:00:[address] [facility] SARS-COV-2 COVID-19 MAURICIO/J&J VACCINE 2020-07-26 00:00:[address] [facility] SARS-COV-2 COVID-19 MAURICIO/J&J VACCINE 2020-07-26 00:00:[address] [facility] SARS-COV-2 COVID-19 MAURICIO/J&J VACCINE 2020-07-26 00:00:[address] [facility] SARS-COV-2 COVID-19 MAURICIO/J&J VACCINE 2020-07-26 00:00:[address] [facility] SARS-COV-2 COVID-19 MAURICIO/J&J VACCINE 2020-07-26 00:00:[address] [facility] SARS-COV-2 COVID-19 MAURICIO/J&J VACCINE 2020-07-26 00:00:[address] [facility] SARS-COV-2 COVID-19 MAURICIO/J&J VACCINE 2020-07-26 00:00:[address] [facility] SARS-COV-2 COVID-19 MAURICIO/J&J VACCINE 2020-07-26 00:00:[address] [facility] SARS-COV-2 COVID-19 MAURICIO/J&J VACCINE 2020-07-26 00:00:[address] [facility] SARS-COV-2 COVID-19 MAURICIO/J&J VACCINE 2020-07-26 00:00:[address] [facility] SARS-COV-2 COVID-19 MAURICIO/J&J VACCINE 2020-07-26 00:00:[address] [facility] SARS-COV-2 COVID-19 MAURICIO/J&J VACCINE 2020-07-26 00:00:[address] [facility] HPV 2013-11-11 00:00:[address] [facility] HPV 2013-11-11 00:00:[address] [facility] HPV 2013-11-11 00:00:[address] [facility] HPV 2013-11-11 00:00:[address] [facility] HPV 2013-11-11 00:00:[address] [facility] HPV 2013-11-11 00:00:[address] [facility] HPV 2013-11-11 00:00:[address] [facility] HPV 2013-11-11 00:00:[address] [facility] HPV 2013-11-11 00:00:[address] [facility] HPV 2013-11-11 00:00:[address] [facility] HPV 2013-11-11 00:00:[address] [facility] HPV 2013-11-11 00:00:[address] [facility] HPV 2013-11-11 00:00:[address] [facility] HPV 2013-11-11 00:00:[address] [facility] HPV 2013-11-11 00:00:[address] [facility] HPV 2013-11-11 00:00:[address] [facility] HPV 2013-11-11 00:00:[address] [facility] HPV 2013-11-11 00:00:[address] [facility] HPV 2013-11-11 00:00:[address] [facility] HPV 2013-11-11 00:00:[address] [facility] HPV 2013-09-11 00:00:[address] [facility] HPV 2013-09-11 00:00:[address] [facility] HPV 2013-09-11 00:00:[address] [facility] HPV 2013-09-11 00:00:[address] [facility] HPV 2013-09-11 00:00:[address] [facility] HPV 2013-09-11 00:00:[address] [facility] HPV 2013-09-11 00:00:[address] [facility] HPV 2013-09-11 00:00:[address] [facility] HPV 2013-09-11 00:00:[address] [facility] HPV 2013-09-11 00:00:[address] [facility] HPV 2013-09-11 00:00:[address] [facility] HPV 2013-09-11 00:00:[address] [facility] HPV 2013-09-11 00:00:[address] [facility] HPV 2013-09-11 00:00:[address] [facility] HPV 2013-09-11 00:00:[address] [facility] HPV 2013-09-11 00:00:[address] [facility] HPV 2013-09-11 00:00:[address] [facility] HPV 2013-09-11 00:00:[address] [facility] HPV 2013-09-11 00:00:[address] [facility] HPV 2013-09-11 00:00:[address] [facility] HPV 2013-05-10 00:00:[address] [facility] HPV 2013-05-10 00:00:[address] [facility] HPV 2013-05-10 00:00:[address] [facility] HPV 2013-05-10 00:00:[address] [facility] HPV 2013-05-10 00:00:[address] [facility] HPV 2013-05-10 00:00:[address] [facility] HPV 2013-05-10 00:00:[address] [facility] HPV 2013-05-10 00:00:[address] [facility] HPV 2013-05-10 00:00:[address] [facility] HPV 2013-05-10 00:00:[address] [facility] HPV 2013-05-10 00:00:[address] [facility] HPV 2013-05-10 00:00:[address] [facility] HPV 2013-05-10 00:00:[address] [facility] HPV 2013-05-10 00:00:[address] [facility] HPV 2013-05-10 00:00:[address] [facility] HPV 2013-05-10 00:00:[address] [facility] HPV 2013-05-10 00:00:[address] [facility] HPV 2013-05-10 00:00:[address] [facility] HPV 2013-05-10 00:00:[address] [facility] HPV 2013-05-10 00:00:[address] [facility] Meningococcal Polysaccharide (groups A, C, Y and W-135) conjugate vaccine (MCV4P) 2012-10-16 00:00:[address] [facility] Meningococcal Polysaccharide (groups A, C, Y and W-135) conjugate vaccine (MCV4P) 2012-10-16 00:00:[address] [facility] Meningococcal Polysaccharide (groups A, C, Y and W-135) conjugate vaccine (MCV4P) 2012-10-16 00:00:[address] [facility] Meningococcal Polysaccharide (groups A, C, Y and W-135) conjugate vaccine (MCV4P) 2012-10-16 00:00:[address] [facility] Td 2010-10-28 00:00:[address] [facility] Td 2010-10-28 00:00:[address] [facility] Td 2010-10-28 00:00:[address] [facility] Td 2010-10-28 00:00:00 Completed [facility] Td 2010-10-28 00:00:[address] [facility] Td 2010-10-28 00:00:[address] [facility] Td 2010-10-28 00:00:[address] [facility] Td 2010-10-28 00:00:[address] [facility] Td 2010-10-28 00:00:[address] [facility] Td 2010-10-28 00:00:[address] [facility] Td 2010-10-28 00:00:[address] [facility] TD, NOS 2010-10-28 00:00:[address] [facility] TD, NOS 2010-10-28 00:00:[address] [facility] TD, NOS 2010-10-28 00:00:[address] [facility] TD, NOS 2010-10-28 00:00:[address] [facility] TD, NOS 2010-10-28 00:00:[address] [facility] TD, NOS 2010-10-28 00:00:[address] [facility] TD, NOS 2010-10-28 00:00:[address] [facility] TD, NOS 2010-10-28 00:00:[address] [facility] TD, NOS 2010-10-28 00:00:[address] [facility] HEPATITIS A 2009-09-16 00:00:[address] [facility] HEPATITIS A 2009-09-16 00:00:[address] [facility] HEPATITIS A 2009-09-16 00:00:[address] [facility] HEPATITIS A 2009-09-16 00:00:[address] [facility] HEPATITIS A 2008-07-28 00:00:[address] [facility] Meningococcal Polysaccharide (groups A, C, Y and W-135) conjugate vaccine (MCV4P) 2008-07-28 00:00:[address] [facility] MMR 2008-07-28 00:00:[address] [facility] TDAP 2008-07-28 00:00:[address] [facility] HEPATITIS A 2008-07-28 00:00:[address] [facility] Meningococcal Polysaccharide (groups A, C, Y and W-135) conjugate vaccine (MCV4P) 2008-07-28 00:00:[address] [facility] MMR 2008-07-28 00:00:[address] [facility] TDAP 2008-07-28 00:00:[address] [facility] HEPATITIS A 2008-07-28 00:00:[address] [facility] Meningococcal Polysaccharide (groups A, C, Y and W-135) conjugate vaccine (MCV4P) 2008-07-28 00:00:[address] [facility] MMR 2008-07-28 00:00:[address] [facility] TDAP 2008-07-28 00:00:[address] [facility] HEPATITIS A 2008-07-28 00:00:[address] [facility] Meningococcal Polysaccharide (groups A, C, Y and W-135) conjugate vaccine (MCV4P) 2008-07-28 00:00:[address] [facility] MMR 2008-07-28 00:00:[address] [facility] TDAP 2008-07-28 00:00:[address] [facility] DTaP, Unspecified Formulation 2002-04-01 00:00:[address] [facility] MMR 2002-04-01 00:00:[address] [facility] IPV 2002-04-01 00:00:[address] [facility] DTaP, Unspecified Formulation 2002-04-01 00:00:[address] [facility] MMR 2002-04-01 00:00:[address] [facility] IPV 2002-04-01 00:00:[address] [facility] DTaP, Unspecified Formulation 2002-04-01 00:00:[address] [facility] MMR 2002-04-01 00:00:[address] [facility] IPV 2002-04-01 00:00:[address] [facility] DTaP, Unspecified Formulation 2002-04-01 00:00:[address] [facility] MMR 2002-04-01 00:00:[address] [facility] IPV 2002-04-01 00:00:[address] [facility] DPT/HIB 1996 00:00:[address] [facility] Hep B, Unspecified Formulation 1996 00:00:[address] [facility] Poliovirus, Live, Oral, Trivalent 1996 00:00:[address] [facility] DPT/HIB 1996 00:00:[address] [facility] Hep B, Unspecified Formulation 1996 00:00:[address] [facility] Poliovirus, Live, Oral, Trivalent 1996 00:00:[address] [facility] DPT/HIB 1996 00:00:[address] [facility] Hep B, Unspecified Formulation 1996 00:00:[address] [facility] Poliovirus, Live, Oral, Trivalent 1996 00:00:[address] [facility] DPT/HIB 1996 00:00:[address] [facility] Hep B, Unspecified Formulation 1996 00:00:[address] [facility] Poliovirus, Live, Oral, Trivalent 1996 00:00:[address] [facility] Hep B, Unspecified Formulation 1996 00:00:[address] [facility] Hep B, Unspecified Formulation 1996 00:00:[address] [facility] Hep B, Unspecified Formulation 1996 00:00:[address] [facility] Hep B, Unspecified Formulation 1996 00:00:[address] [facility] TD, NOS Unknown Completed [facility] SARS-COV-2 COVID-19 MAURICIO/J&J VACCINE Unknown Completed [facility] TDAP Unknown Completed [facility] HPV Unknown Completed [facility] HPV9 [address] [facility] DTaP, Unspecified Formulation Unknown Completed [facility] DPT/HIB Unknown Completed [facility] HEPATITIS A Unknown Completed [facility] Hep B, Unspecified Formulation Unknown Completed [facility] Meningococcal Polysaccharide (groups A, C, Y and W-135) conjugate vaccine (MCV4P) Unknown Completed [facility] MMR Unknown Completed [facility] IPV Unknown Completed [facility] Poliovirus, Live, Oral, Trivalent Unknown Completed [facility] TD, NOS Unknown Completed [facility] SARS-COV-2 COVID-19 MAURICIO/J&J VACCINE Unknown Completed [facility] TDAP Unknown Completed [facility] HPV Unknown Completed [facility] HPV9 [address] [facility] DTaP, Unspecified Formulation Unknown Completed [facility] DPT/HIB Unknown Completed [facility] HEPATITIS A Unknown Completed [facility] Hep B, Unspecified Formulation Unknown Completed [facility] Meningococcal Polysaccharide (groups A, C, Y and W-135) conjugate vaccine (MCV4P) Unknown Completed [facility] MMR Unknown Completed [facility] IPV Unknown Completed [facility] Poliovirus, Live, Oral, Trivalent Unknown Completed [facility] TD, NOS Unknown Completed [facility] SARS-COV-2 COVID-19 MAURICIO/J&J VACCINE Unknown Completed [facility] TDAP Unknown Completed [facility] HPV Unknown Completed [facility] DTaP, Unspecified Formulation Unknown Completed [facility] DPT/HIB Unknown Completed [facility] HEPATITIS A Unknown Completed [facility] Hep B, Unspecified Formulation Unknown Completed [facility] Meningococcal Polysaccharide (groups A, C, Y and W-135) conjugate vaccine (MCV4P) Unknown Completed [facility] MMR Unknown Completed [facility] IPV Unknown Completed [facility] Poliovirus, Live, Oral, Trivalent Unknown Completed [facility] TD, NOS Unknown Completed [facility] SARS-COV-2 COVID-19 MAURICIO/J&J VACCINE Unknown Completed [facility] HPV Unknown Completed [facility] DTaP, Unspecified Formulation Unknown Completed [facility] DPT/HIB Unknown Completed [facility] HEPATITIS A Unknown Completed [facility] Hep B, Unspecified Formulation Unknown Completed [facility] Meningococcal Polysaccharide (groups A, C, Y and W-135) conjugate vaccine (MCV4P) Unknown Completed [facility] MMR Unknown Completed [facility] IPV Unknown Completed [facility] Poliovirus, Live, Oral, Trivalent Unknown Completed [facility] TDAP Unknown Completed [facility] TD, NOS Unknown Completed [facility] SARS-COV-2 COVID-19 MAURICIO/J&J VACCINE Unknown Completed [facility] TDAP Unknown Completed [facility] HPV Unknown Completed [facility] HPV9 [address] [facility] DTaP, Unspecified Formulation Unknown Completed [facility] DPT/HIB Unknown Completed [facility] HEPATITIS A Unknown Completed [facility] Hep B, Unspecified Formulation Unknown Completed [facility] Meningococcal Polysaccharide (groups A, C, Y and W-135) conjugate vaccine (MCV4P) Unknown Completed [facility] MMR Unknown Completed [facility] IPV Unknown Completed [facility] Poliovirus, Live, Oral, Trivalent Unknown Completed [facility] Vital Signs Vital Name Observation Time Observation Value Comments S ource Systolic blood pressure 2024-02-24 20:39:00 118 mm[Hg] [facility] - External Diastolic blood pressure 2024-02-24 20:39:00 66 mm[Hg] [facility] - External Heart rate 2024-02-24 20:39:00 80 /min [facility] - External Body temperature 2024-02-24 20:39:00 36.94 Emmanuelle [facility] - External Respiratory rate 2024-02-24 20:39:00 16 /min [facility] - External Body height 2024-02-24 20:39:00 165.1 cm [facility] - External Body weight 2024-02-24 20:39:00 128.459 kg [facility] - External BMI 2024-02-24 20:39:00 47.13 kg/m2 [facility] - External Systolic blood pressure 2022-12-03 00:15:00 118 mm[Hg] [facility] Diastolic blood pressure 2022-12-03 00:15:00 79 mm[Hg] [facility] Heart rate 2022-12-03 00:15:00 99 /min [facility] Body temperature 2022-12-03 00:15:[address] [facility] Respiratory rate 2022-12-03 00:15:00 15 /min [facility] Body height 2022-12-03 00:15:[address] [facility] Body weight 2022-12-03 00:15:[address] [facility] BMI 2022-12-03 00:15:00 50.72 kg/m2 [facility] Oxygen saturation in Arterial blood by Pulse oximetry 2022-12-03 00:15:00 98 /min [facility] Systolic blood pressure 2022-10-02 18:30:00 136 mm[Hg] [facility] Diastolic blood pressure 2022-10-02 18:30:00 75 mm[Hg] [facility] Heart rate 2022-10-02 18:30:00 80 /min [facility] Body temperature 2022-10-02 18:30:[address] [facility] Respiratory rate 2022-10-02 18:30:00 18 /min [facility] Body height 2022-10-02 18:30:[address] [facility] Body weight 2022-10-02 18:30:[address] [facility] BMI 2022-10-02 18:30:00 50.29 kg/m2 [facility] Systolic blood pressure 2022-04-30 16:31:00 133 mm[Hg] [facility] Diastolic blood pressure 2022-04-30 16:31:00 84 mm[Hg] [facility] Heart rate 2022-04-30 16:31:00 76 /min [facility] Body temperature 2022-04-30 16:31:[address] [facility] Respiratory rate 2022-04-30 16:31:00 18 /min [facility] Body height 2022-04-30 16:31:[address] [facility] Body weight 2022-04-30 16:31:[address] [facility] BMI 2022-04-30 16:31:00 49.88 kg/m2 [facility] Systolic blood pressure 2022-04-19 15:39:00 119 mm[Hg] [facility] Diastolic blood pressure 2022-04-19 15:39:00 76 mm[Hg] [facility] Heart rate 2022-04-19 15:39:00 81 /min [facility] Body temperature 2022-04-19 15:39:[address] [facility] Respiratory rate 2022-04-19 15:39:00 18 /min [facility] Body height 2022-04-19 15:39:[address] [facility] Body weight 2022-04-19 15:39:[address] [facility] BMI 2022-04-19 15:39:00 49.59 kg/m2 [facility] Systolic blood pressure 2022-03-03 15:17:00 125 mm[Hg] [facility] Diastolic blood pressure 2022-03-03 15:17:00 87 mm[Hg] [facility] Heart rate 2022-03-03 15:17:00 74 /min [facility] Body temperature 2022-03-03 15:17:[address] [facility] Respiratory rate 2022-03-03 15:17:00 18 /min [facility] Body height 2022-03-03 15:17:[address] [facility] Body weight 2022-03-03 15:17:[address] [facility] BMI 2022-03-03 15:17:00 42.91 kg/m2 [facility] Oxygen saturation in Arterial blood by Pulse oximetry 2022-03-03 15:17:00 99 /min [facility] Systolic blood pressure 2022-02-14 20:28:00 138 mm[Hg] [facility] Diastolic blood pressure 2022-02-14 20:28:00 85 mm[Hg] [facility] Heart rate 2022-02-14 20:28:00 66 /min [facility] Body temperature 2022-02-14 20:28:[address] [facility] Respiratory rate 2022-02-14 20:28:00 20 /min [facility] Body height 2022-02-14 20:28:[address] [facility] Body weight 2022-02-14 20:28:[address] [facility] BMI 2022-02-14 20:28:00 46.95 kg/m2 [facility] Systolic blood pressure 2022-01-24 22:13:00 144 mm[Hg] Had to try 3x before getting a reading [facility] Diastolic blood pressure 2022-01-24 22:13:00 98 mm[Hg] Had to try 3x before getting a reading [facility] Heart rate 2022-01-24 22:13:00 97 /min [facility] Body temperature 2022-01-24 22:13:[address] [facility] Respiratory rate 2022-01-24 22:13:00 18 /min [facility] Body height 2022-01-24 22:13:[address] [facility] Body weight 2022-01-24 22:13:[address] [facility] BMI 2022-01-24 22:13:00 47.65 kg/m2 [facility] Oxygen saturation in Arterial blood by Pulse oximetry 2022-01-24 22:13:00 98 /min [facility] Systolic blood pressure 2021-12-06 13:30:00 124 mm[Hg] [facility] Diastolic blood pressure 2021-12-06 13:30:00 54 mm[Hg] [facility] Heart rate 2021-12-06 13:30:00 72 /min [facility] Body temperature 2021-12-06 13:30:[address] [facility] Respiratory rate 2021-12-06 13:30:00 18 /min [facility] Body height 2021-12-06 13:30:[address] [facility] Body weight 2021-12-06 13:30:[address] [facility] BMI 2021-12-06 13:30:00 47.80 kg/m2 [facility] Procedures Procedure Date / Time Performed Performing Clinician Source POCT SARS-COV-2 ANTIGEN (BINAX NOW) 2022-12-03 00:31:[address] [facility] CBC WITH DIFF 2022-10-02 19:30:[address] [facility] GLYCOSYLATED HEMOGLOBIN (A1C) 2022-10-02 19:30:[address] [facility] HCV ANTIBODY 2022-10-02 19:30:00 [facility] CHLAMYDIA AMPLIFIED ASSAY 2022-10-02 19:30:[address] [facility] HIV 1/2 AG-AB WITH REFLEX 2022-10-02 19:30:[address] [facility] TRICHOMONAS AMPLIFIED ASSAY 2022-10-02 19:30:[address] [facility] PAP SMEAR-LIQUID BASED-CP 2022-10-02 19:30:[address] [facility] SYPHILIS IGG/IGM 2022-10-02 19:30:00 Jennifer Puri [facility] PATIENT FINANCIAL POLICY 2022-10-02 18:08:46 Doctor Unassigned, [place] [facility] POCT TEST 2022-04-30 16:35:[address] [facility] DISCLOSURE AND CONSENT, MEDICAL AND SURGICAL PROCEDURES 2022-04-30 06:01:00 Doctor Unassigned, [place] [facility] POCT TEST 2022-04-19 15:41:[address] [facility] BASIC METABOLIC PANEL (NA, K, CL, CO2, GLUCOSE, BUN, CREATININE, CA) 2022-03-03 15:57:[address] [facility] ETHANOL 2022-03-03 15:57:00 Tiana Atnonio [facility] CBC WITH DIFF 2022-03-03 15:57:00 Tiana Antonio [facility] URINALYSIS 2022-03-03 15:57:00 Tiana Antonio [facility] URINE DRUG (IMMUNOASSAY) - COMPREHENSIVE DRUG SCREEN W/O REFLEX 2022-03-03 15:57:[address] [facility] HB ECG ROUTINE & RHYTHM STRIP 2022-03-03 15:55:[address] [facility] POCT TEST 2022-02-14 20:48:[address] [facility] ASSIGNMENT OF BENEFITS 2022-02-14 19:38:06 Docto r Unassigned, [place] [facility] POCT URINALYSIS 2022-01-24 22:31:[address] [facility] POCT TEST 2021-12-06 15:36:[address] [facility] Encounters Start Date/Time End Date/Time Encounter Type Admission Type Attending Clinicians Care Facility Care Department Encounter ID Source 2021-01-22 06:46:10 Emergency [facility] [id number] [facility] 2024-04-24 14:45:00 2024-04-24 14:45:00 Outpatient JEB DAVIS [id number] Ying mohsen 2024-04-13 08:15:00 2024-04-13 08:15:00 Outpatient JEB DAVIS [id number] Ying [facility] 2024-03-16 15:00:00 2024-03-16 15:00:00 Outpatient [facility]ILOU [facility]ILL[facility] [id number] [facility]12 15:00:00 2024-03-12 15:00:00 Outpatient JEB DAVIS [id number] [facility] 2024-02-25 10:30:00 2024-02-25 10:30:00 Outpatient MARILOU JARAMILLO YING [id number] [facility] 2024-02-24 13:45:00 2024-02-24 13:45:00 Outpatient JEB DAVIS YING RODRIGUEZ [id number] [facility] 2023-09-18 14:00:00 2023-09-18 14:00:00 Outpatient YAN GRAHAM [facility] [id number] [facility] 2023-08-30 15:15:00 2023-08-30 15:15:00 Outpatient R ESTEVAN ADAMS [facility] [id number] [facility] 2023-08-29 10:45:00 2023-08-29 10:45:00 Outpatient YAN GRAHAM [facility] [id number] [facility] 2023-02-21 15:00:00 2023-02-21 15:00:00 Outpatient R ESTEVAN ADAMS [facility] [id number] [facility] 2023-01-28 00:00:00 2023-01-28 00:00:00 Outpatient GC_GCBZW_Ka diyala_S PRIV PRIV [id number] [facility] 2023-01-22 08:30:00 2023-01-22 08:30:00 Outpatient ESTEVAN ALCALA [facility] [id number] [facility] 2023-01-19 00:00:00 2023-01-19 00:00:00 Outpatient GC_GCBZW_Ka diyala_S PRIV PRIV [id number] [facility] 2023-01-18 00:00:00 2023-01-18 00:00:00 Outpatient GC_GCBZW_Ka diyala_S PRIV PRIV [id number] [facility] 2023-01-18 00:00:00 2023-01-18 00:00:00 Telephone Estevan Adams [facility] PROMPT CARE RN [facility] [id number] [facility] 2023-01-14 14:00:00 2023-01-14 14:00:00 Outpatient R ALEKS-JANETT S, OMKAR ALEKS-JANETT S, OMKAR [facility] [id number] [facility] [facility] 2022-12-04 00:00:00 2022-12-04 00:00:00 Telephone Jessika Manrique [facility] OFFICE [facility] 1.840.114 350.1.13.10 4.2.7.2.686 [id number] 370 [id number] [facility] 2022-12-02 19:00:00 2022-12-02 19:35:03 Outpatient R JESSIKA MANRIQUE [facility] [id number] [facility] 2022-12-02 19:00:00 2022-12-02 19:20:00 Urgent Care Jessika Manrique, Attending [facility] OFF[facility] 1.840.114 350.1.13.10 4.2.7.2.686 [id number] 370 [id number] [facility] 2022-10-04 00:00:00 2022-10-04 00:00:00 Telephone Jennifer Puri [facility] PROMPT CARE RN [facility] MATERNAL & CHILD [facility] [[email or web address]] 1.840.114 350.1.13.10 4.2.7.2.686 [id number] [facility] 2022-10-02 13:30:00 2022-10-02 14:31:55 Outpatient R JENNIFER PURI [facility] [id number] [facility] 2022-10-02 13:30:00 2022-10-02 14:31:55 Office Visit Jennifer Puri [facility] PROMPT CARE RN [facility] MATERNAL & CHILD [facility] [[email or web address]] 1.840.114 350.1.13.10 4.2.7.2.686 [id number] 107 [id number] [facility] 2022-10-02 00:00:00 2022-10-02 00:00:00 Orders Only Doctor Unassigned, [place] [facility] 1.2840.114 350.1.13.10 4.2.7.2.686 [id number] [facility] 2022-07-04 13:15:00 2022-07-04 13:15:00 Outpatient SIRIA MAGANA [facility] [id number] [facility] 2022-07-04 13:15:00 2022-07-04 13:15:00 Outpatient LUDA MAGANASTEPHANIE [facility] [id number] [facility] 2022-07-04 13:00:00 2022-07-04 13:00:00 Outpatient SIRIA MAGANA [facility] [id number] [facility] 2022-04-30 10:00:00 2022-04-30 10:30:00 Office Visit Estevan Adams [facility] PR[facility]ARE RN [facility] MATERNAL & [facility] 1..840.114 350.1.13.10 4.2.7.2.686 [id number] 107 [id number] [facility] 2022-04-30 10:00:00 2022-04-30 10:00:00 Outpatient ESTEVAN ALCALA [facility] [id number] [facility] 2022-04-30 00:00:00 2022-04-30 00:00:00 Orders Only Doctor Unassigned, [place] [facility] 1.840.114 350.1.13.10 4.2.7.2.686 [id number] [facility] 2022-04-19 09:30:00 2022-04-19 10:05:06 Outpatient R ESTEVAN ADAMS [facility] [id number] [facility] 2022-04-19 09:30:00 2022-04-19 10:05:06 Office Visit Alireza Adamsnavjot [place] [facility] PROMPT CARE RN [facility] MATERNAL & CHILD [facility] [[email or web address]] 1.2.840.114 350.1.13.10 4.2.7.2.686 [id number] 107 [id number] [facility] 2022-04-19 00:00:00 2022-04-19 00:00:00 Letter (Out) Benisrael Estevan [place] [facility] PR[facility]PT CARE RN [facility] & CHILD [facility] [[email or web address]] 1.2.840.114 350.1.13.10 4.2.7.2.686 [id number] [facility] 2022-03-07 09:45:00 2022-03-07 09:45:00 Outpatient SIRIA MAGANA [facility] [id number] [facility] 2022-03-03 09:22:00 2022-03-03 12:44:00 Emergency X TIANA ANTONIO [facility] ERT [id number] [facility] 2022-03-03 09:22:00 2022-03-03 12:44:00 Emergency Tiana Antonio [facility] 1.2.840.114 350.1.13.10 4.2.7.2.686 [id number] [facility] 2022-02-18 00:00:00 2022-02-18 00:00:00 Refill Estevan Adams [facility] PR[facility]PT CARE RN [facility] & CHILD [facility] [[email or web address]] 1.2.840.114 350.1.13.10 4.2.7.2.686 [id number] 107 [id number] [facility] 2022-02-14 13:30:00 2022-02-14 14:35:37 [facility] PR[facility] RN [facility] CHILD [facility] [[email or web address]] 1.2.840.114 350.1.13.10 4.2.7.2.686 [id number] 107 [id number] [facility] 2022-02-14 14:30:00 2022-02-14 14:30:00 Outpatient R GIOTeodoroJENNIFER [facility] [id number] [facility] 2022-02-14 13:30:00 2022-02-14 13:30:00 Outpatient R COTY JENNIFER [facility] [id number] [facility] 2022-02-14 00:00:00 2022-02-14 00:00:00 Orders Only Doctor Unassigned, [place] [facility] 1..114 350.1.13.10 4.2.7.2.686 [id number] [facility] 2022-02-14 00:00:00 2022-02-14 00:00:00 Telephone Siria Anderson [facility] PROMPT CARE RN [facility] & CHILD [facility] [[email or web address]] 1..114 350.1.13.10 4.2.7.2.686 [id number] 107 [id number] [facility] 2022-02-06 00:00:00 2022-02-06 00:00:00 Telephone Estevan Adams [facility] PR[facility]PT C[facility] RN [facility] 1..114 350.1.13.10 4.2.7.2.686 [id number] 107 [id number] [facility] 2022-01-24 17:20:00 2022-01-24 17:28:54 Outpatient JESSIKA MCGUIRE [facility] [id number] [facility] 2022-01-24 17:20:00 2022-01-24 17:28:54 Urgent Care Jessika Manrique Unknown, Attending [facility] 1.84.114 350.1.13.10 4.2.7.2.686 [id number] 370 [id number] [facility] 2022-01-01 00:00:00 2022-01-01 00:00:00 Refill Estevan Adams [facility] PR[facility] RN [facility] & CHILD [facility] [[email or web address]] 1.2.840.114 350.1.13.10 4.2.7.2.686 [id number] 107 [id number] [facility] 2022-01-01 00:00:00 2022-01-01 00:00:00 Telephone Estevan Adams [facility] PROMPT CARE RN [facility] & CHILD [facility] [[email or web address]] 1.2.840.114 350.1.13.10 4.2.7.2.686 [id number] 107 [id number] [facility] 2021-12-29 00:00:00 2021-12-29 00:00:00 Refill Estevan Adams [facility] PROMPT CARE RN [facility] & CHILD [facility] [[email or web address]] 1.2.840.114 350.1.13.10 4.2.7.2.686 [id number] 107 [id number] [facility] 2021-12-06 08:15:00 2021-12-06 08:54:24 Office Visit Estevan Adams [facility] PR[facility] C[facility] RN [facility] CHILD [facility] [[email or web address]] 1.2.840.114 350.1.13.10 4.2.7.2.686 [id number] 107 [id number] [facility] 2021-12-06 08:15:00 2021-12-06 08:54:24 Outpatient R ESTEVAN ADAMS [facility] [id number] [facility] 2021-12-06 08:15:00 2021-12-06 08:15:00 Outpatient R ESTEVAN ADAMS [facility] [id number] [facility] 2021-11-22 15:15:00 2021-11-22 15:15:00 Outpatient R ESTEVAN ADAMS [facility] [id number] [facility] 2021-11-21 00:00:00 2021-11-21 00:00:00 Telephone Siria Anderson [facility] PROMPT CARE RN [facility] & CHILD [facility] [[email or web address]] 1.2.840.114 350.1.13.10 4.2.7.2.686 [id number] 107 [id number] [facility] 2021-11-20 00:00:00 2021-11-20 00:00:00 Telephone Siria Anderson [facility] PROMPT CARE RN [facility] & CHILD [facility] [[email or web address]] 1.2.840.114 350.1.13.10 4.2.7.2.686 [id number] 107 [id number] [facility] 2021-09-03 00:00:00 2021-09-03 00:00:00 Refill Siria Anderson [facility] PROMPT CARE RN [facility] & CHILD [facility] [[email or web address]] 1.2.840.114 350.1.13.10 4.2.7.2.686 [id number] 107 [id number] [facility] 2021-07-04 12:45:00 2021-07-04 13:31:36 Office Visit Siria Anderson [facility] PROMPT CARE RN [facility] CHILD [facility] [[email or web address]] 1.2.840.114 350.1.13.10 4.2.7.2.686 [id number] 107 [id number] [facility] 2021-07-04 12:45:00 2021-07-04 13:31:36 Outpatient R SIRIA ANDERSON [facility] [id number] [facility] 2021-07-04 12:45:00 2021-07-04 12:45:00 Outpatient R SIRIA ANDERSON [facility] [id number] [facility] 2021-07-04 00:00:00 2021-07-04 00:00:00 Telephone Maisha West [facility] 1.2840.114 350.1.13.10 4.2.7.2.686 [id number] [facility] 2021-07-03 18:20:00 2021-07-03 18:53:48 [facility] [id number] 2021-07-03 18:20:00 2021-07-03 18:53:48 Urgent Care [place] [facility] 1..840.114 350.1.13.10 4.2.7.2.686 [id number] [facility] 2021-07-03 18:20:00 2021-07-03 18:53:48 Outpatient R B[facility]TON [facility] [id number] [facility] 2021-07-03 09:30:00 2021-07-03 09:30:00 Outpatient EASTON RIOJAS [id number] [facility] 2021-07-03 08:15:00 2021-07-03 08:15:00 Outpatient EASTON RIOJAS [id number] [facility] 2021-07-03 00:00:00 2021-07-03 00:00:00 Patient Secure Msg Siria Anderson [facility] PROMPT CARE RN [facility] MATERNAL & CHILD [facility] [[email or web address]] ..840.114 350.1.13.10 4.2.7.2.686 [id number] 107 [id number] [facility] 2021-06-21 13:00:00 2021-06-21 14:53:50 Outpatient SIRIA MAGANA [facility] [id number] [facility] 2021-06-21 13:00:00 2021-06-21 14:53:50 Office Visit Siria Anderson [facility] PROMPT CARE RN [facility] & CHILD [facility] [[email or web address]] ..840.114 350.1.13.10 4.2.7.2.686 [id number] 107 [id number] [facility] 2021-06-21 13:00:00 2021-06-21 14:53:50 Outpatient SIRIA MAGANA [facility] [id number] [facility] 2021-05-31 08:00:00 2021-05-31 09:04:36 Outpatient R SIRIA ANDERSON [facility] [id number] [facility] 2021-05-31 08:00:00 2021-05-31 09:04:36 Routine Visit Siria Anderson [facility] PROMPT CARE RN [facility] & CHILD [facility] [[email or web address]] 1.2.840.114 350.1.13.10 4.2.7.2.686 [id number] 107 [id number] [facility] 2021-05-29 00:00:00 2021-05-29 00:00:00 Patient Secure Msg Siria Anderson [facility] PROMPT CARE RN [facility] CHILD [facility] [[email or web address]] 1.2.840.114 350.1.13.10 4.2.7.2.686 [id number] 107 [id number] [facility] 2021-05-19 00:00:00 2021-05-19 00:00:00 Telephone Estevan Adams [facility] PROMPT CARE RN [facility] CHILD [facility] [[email or web address]] 1..840.114 350.1.13.10 4.2.7.2.686 [id number] 107 [id number] [facility] 2021-05-17 13:00:00 2021-05-17 13:00:00 Nurse Visit Nurse, Naun Lima Exp Cprit Obgyn Siria Anderson [facility] PROMPT CARE RN [facility] 1..840.114 350.1.13.10 4.2.7.2.686 [id number] 107 [id number] [facility] 2021-05-17 13:00:00 2021-05-17 08:46:02 Outpatient SIRIA MAGANA [facility] [id number] [facility] 2021-05-17 08:00:00 2021-05-17 08:45:55 Nurse Visit Visit, Naun-Zanderchdaren Nurse Siria Anderson [facility] PROMPT CARE RN [facility] MATERNAL & CHILD [facility] [[email or web address]] 1.2.840.114 350.1.13.10 4.2.7.2.686 [id number] [facility] 2021-05-09 17:42:00 2021-05-12 16:52:00 Inpatient P JODEE ALMAZAN [facility] REZA [id number] [facility] 2021-05-09 17:42:00 2021-05-12 16:52:00 Hospital Encounter Jodee Almazan [facility] 1.2.840.114 350.1.13.10 4.2.7.2.686 [id number] [facility] 2021-05-10 17:00:00 2021-05-10 18:47:00 Surgery Zbigniew Fernandez [facility] 1.2.840.114 350.1.13.10 4.2.7.2.686 [id number] [facility] 2021-05-10 09:54:00 2021-05-10 18:34:00 Anesthesia Event Glen Mcgraw Axel [facility] 1.2.840.114 350.1.13.10 4.2.7.2.686 [id number] [facility] 2021-05-09 13:15:00 2021-05-09 14:00:22 Outpatient R SIRIA ANDERSON [facility] [id number] [facility] 2021-05-09 13:15:00 2021-05-09 14:00:22 Routine Visit Siria Anderson [facility] PROMPT CARE RN [facility] & CHILD [facility] [[email or web address]] 1.2.840.114 350.1.13.10 4.2.7.2.686 [id number] 107 [id number] [facility] 2021-05-02 15:30:00 2021-05-02 15:58:07 Outpatient R SIRIA ANDERSON [facility] [id number] [facility] 2021-05-02 15:30:00 2021-05-02 15:58:07 Routine Visit AndersonSiria [facility] PROMPT CARE RN [facility] & CHILD [facility] [[email or web address]] 1.2.840.114 350.1.13.10 4.2.7.2.686 [id number] 107 [id number] [facility] 2021-05-02 00:00:00 2021-05-02 00:00:00 Abstract Anderson, Siria Divya [facility] PROMPT CARE RN [facility] & CHILD [facility] [[email or web address]] 1.2840.114 350.1.13.10 4.2.7.2.686 [id number] 107 [id number] [facility] 2021-04-28 09:30:00 2021-04-28 10:00:00 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, Katelyn Whiting [facility] PROM[facility] C[facility] [[email or web address]] 1.840.114 350.1.13.10 4.2.7.2.686 [id number] [facility] 2021-04-28 09:30:00 2021-04-28 09:30:00 Outpatient P [facility] [id number] [facility] 2021-04-28 09:30:00 2021-04-28 09:30:00 Outpatient P [facility] [id number] [facility] 2021-04-28 09:30:00 2021-04-28 09:30:00 Outpatient P KATELYN CRUZ SHANNON [facility] [id number] [facility] 2021-04-25 15:30:00 2021-04-25 16:19:38 Outpatient R SIRIA ANDERSON [facility] [id number] [facility] 2021-04-25 15:30:00 2021-04-25 16:19:38 Routine Visit Siria Anderson [facility] PROMPT CARE RN [facility] CHILD [facility] [[email or web address]] 1.2840.114 350.1.13.10 4.2.7.2.686 [id number] 107 [id number] [facility] 2021-04-25 15:30:00 2021-04-25 15:30:00 Outpatient R SIRIA ANDERSON [facility] [id number] [facility] 2021-04-24 15:30:00 2021-04-24 15:30:00 Outpatient P [facility] [id number] [facility] 2021-04-21 00:00:00 2021-04-21 00:00:00 Telephone Siria Anderson [facility] PROMPT CARE RN [facility] & CHILD [facility] [[email or web address]] ..840.114 350.1.13.10 4.2.7.2.686 [id number] 107 [id number] [facility] 2021-04-19 13:15:00 2021-04-19 13:15:00 Outpatient SIRIA MAGANA [facility] [id number] [facility] 2021-04-19 13:15:00 2021-04-19 13:15:00 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 Visit Lab, [facility] Siria Anderson [facility] PROMPT CARE RN [facility] & CHILD [facility] [[email or web address]] 1..840.114 350.1.13.10 4.2.7.2.686 [id number] [facility] 2021-04-19 13:00:00 2021-04-19 13:00:00 Outpatient P [facility] [id number] [facility] 2021-04-19 00:00:00 2021-04-19 00:00:00 Telephone Siria Anderson [facility] PROMPT CARE RN [facility] & CHILD [facility] [[email or web address]] ..840.114 350.1.13.10 4.2.7.2.686 [id number] 107 [id number] [facility] 2021-04-18 15:30:00 2021-04-18 16:11:31 Outpatient SIRIA MAGANA [facility] [id number] [facility] 2021-04-18 15:30:00 2021-04-18 16:11:31 Routine Visit Siria Anderson [facility] PROMPT CARE RN [facility] & CHILD [facility] [[email or web address]] 1.840.114 350.1.13.10 4.2.7.2.686 [id number] 107 [id number] [facility] 2021-04-18 15:30:00 2021-04-18 16:11:31 Outpatient SIRIA MAGANA [facility] [id number] [facility] 2021-04-18 15:30:00 2021-04-18 15:30:00 Outpatient SIRIA MAGANA [facility] [id number] [facility] 2021-04-11 13:00:00 2021-04-11 14:15:13 Outpatient R SIRIA ANDERSON [facility] [id number] [facility] 2021-04-11 13:00:00 2021-04-11 14:15:13 Outpatient SIRIA MAGANA [facility] [id number] [facility] 2021-04-11 13:00:00 2021-04-11 14:15:13 Routine Visit Siria Anderson [facility] PROMPT CARE RN [facility] & CHILD [facility] [[email or web address]] .840.114 350.1.13.10 4.2.7.2.686 [id number] 107 [id number] [facility] 2021-04-11 13:00:00 2021-04-11 13:00:00 Outpatient SIRIA MAGANA [facility] [id number] [facility] 2021-03-29 00:00:00 2021-03-29 00:00:00 Telephone Siria Anderson [facility] PROMPT CARE RN [facility] MATERNAL & CHILD [facility] [[email or web address]] 1.840.114 350.1.13.10 4.2.7.2.686 [id number] 107 [id number] [facility] 2021-03-22 14:30:00 2021-03-22 14:51:40 Outpatient R SIRIA ANDERSON [facility] [id number] [facility] 2021-03-22 14:30:00 2021-03-22 14:51:40 Routine Visit Siria Anderson Antonio F [facility] PROMPT CARE RN [facility] & CHILD [facility] [[email or web address]] 1.2.840.114 350.1.13.10 4.2.7.2.686 [id number] 107 [id number] [facility] 2021-03-22 14:30:00 2021-03-22 14:30:00 Outpatient R SIRIA ANDERSON [facility] [id number] [facility] 2021-03-22 14:00:00 2021-03-22 14:30:00 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 Siria Anderson [facility] PROMPT CARE RN [facility] & CHILD [facility] [[email or web address]] 1.2.840.114 350.1.13.10 4.2.7.2.686 [id number] [facility] 2021-03-22 00:00:00 2021-03-22 00:00:00 Abstract Siria Anderson [facility] PROMPT CARE RN [facility] MATERNAL & CHILD [facility] [[email or web address]] 1.2.840.114 350.1.13.10 4.2.7.2.686 [id number] 107 [id number] [facility] 2021-03-15 00:00:00 2021-03-15 00:00:00 Patient Secure Msg Siria Anderson [facility] PROMPT CARE RN [facility] & CHILD [facility] [[email or web address]] 1.2.840.114 350.1.13.10 4.2.7.2.686 [id number] [facility] 2021-03-14 00:00:00 2021-03-14 00:00:00 Telephone Siria Anderson [facility] PROMPT CARE RN [facility] & CHILD [facility] [[email or web address]] 1.2.840.114 350.1.13.10 4.2.7.2.686 [id number] 107 [id number] [facility] 2021-03-13 00:00:00 2021-03-13 00:00:00 Aaron Dykes [facility] PROMPT CARE RN [facility] & CHILD [facility] 1.2.840.114 350.1.13.10 4.2.7.2.686 [id number] [facility] 2021-03-13 00:00:00 2021-03-13 00:00:00 Siria Lechuga [facility] PROMPT CARE RN [facility] CHILD [facility] [[email or web address]] 1.2840.114 350.1.13.10 4.2.7.2.686 [id number] 107 [id number] [facility] 2021-03-10 00:00:00 2021-03-10 00:00:00 Refill Siria Anderson [facility] PROMPT CARE RN [facility] CH[facility] [[email or web address] [id number] 350.1.13.10 4.2.7.2.686 [id number] [facility] 2021-03-10 00:00:00 2021-03-10 00:00:00 Aaron Dykes [facility] PROMPT CARE RN [facility] & CHILD [facility] 1.2840.114 350.1.13.10 4.2.7.2.686 [id number] [facility] 2021-03-09 15:45:00 2021-03-09 16:18:23 Outpatient R SIRIA ANDERSON [facility] [id number] [facility] 2021-03-09 15:45:00 2021-03-09 16:18:23 Routine Visit Siria Anderson [facility] PROMPT CARE RN [facility] & CHILD [facility] [[email or web address] [id number] 350.1.13.10 4.2.7.2.686 [id number] [facility] 2021-03-09 00:00:00 2021-03-09 00:00:00 Aaron Dykes [facility] PROMPT CARE RN [facility] & CHILD [facility] 1.2840.114 350.1.13.10 4.2.7.2.686 [id number] [facility] 2021-03-09 00:00:00 2021-03-09 00:00:00 Siria Lechuga [facility] CHILD [facility] [[email or web address] 1..114 350.1.13.10 4.2.7.2.686 [id number] [facility] 2021-03-08 15:45:00 2021-03-08 15:45:00 Outpatient SIRIA MAGANA [facility] [id number] [facility] 2021-02-22 10:00:00 2021-02-22 11:57:26 Outpatient AARON BACK [facility] [id number] [facility] 2021-02-22 09:59:09 2021-02-22 11:57:26 Routine Visit Provider, Aaron Barlow [facility] [[email or web address]] ..114 350.1.13.10 4.2.7.2.686 [id number] [facility] 2021-02-13 10:52:00 2021-02-13 11:22:00 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, Silvana Ruff [facility] PROMPT CARE RN [facility] & CHILD [facility] [[email or web address]] [id number] 350.1.13.10 4.2.7.2.686 [id number] [facility] 2021-02-13 10:45:00 2021-02-13 10:45:00 Outpatient SILVANA WESLEY SANGE[facility]A [facility] [id number] [facility] 2021-02-13 00:00:00 2021-02-13 00:00:00 Case Management Bo Rivera [facility] PROMPT CARE RN [facility] & CHILD [facility] [[email or web address]] 1..114 350.1.13.10 4.2.7.2.686 [id number] [facility] 2021-02-03 00:00:00 2021-02-03 00:00:00 Telephone Aaron [place] [facility] PR[facility]PT CARE RN [facility] & CHILD [facility] ..114 350.1.13.10 4.2.7.2.686 [id number] [facility] 2021-02-01 10:45:00 2021-02-01 11:09:09 Outpatient R BO RIVERA [facility] [id number] [facility] 2021-02-01 10:04:55 2021-02-01 11:09:09 Routine Visit Provider, Bo Olivas [facility] PR[facility] RN [facility] CHILD [facility] [[email or web address]] ..114 350.1.13.10 4.2.7.2.686 [id number] [facility] 2021-01-31 00:00:00 2021-01-31 00:00:00 Refill Nguyễn Adhikari [facility] LUC[facility] .114 350.1.13.10 4.2.7.2.686 [id number] [facility] 2021-01-30 00:00:00 2021-01-30 00:00:00 Telephone Aaron Alicea [facility] RN [facility] & CHILD [facility] [[email or web address]] ..114 350.1.13.10 4.2.7.2.686 [id number] [facility] 2021-01-29 00:00:00 2021-01-29 00:00:00 Refill Siria Anderson [facility] PROMPT CARE RN [facility]ERNAL & CHILD [facility] [[email or web address]] 1.2840.114 350.1.13.10 4.2.7.2.686 [id number] [facility] 2021-01-29 00:00:00 2021-01-29 00:00:00 [facility] 1.84.114 350.1.13.10 4.2.7.2.686 [id number] [facility] 2021-01-19 14:40:00 2021-01-19 15:06:44 Outpatient R CASEY [facility] [id number] [facility] 2021-01-19 14:22:57 2021-01-19 15:06:44 Urgent Care Onofre Nguy[facility]n Pe[facility]Critical access hospital[facility] 1..114 350.1.13.10 4.2.7.2.686 [id number] [facility] 2021-01-04 00:00:00 2021-01-04 00:00:00 Telephone Siria Anderson [facility] PROMPT CARE RN [facility] & CHILD [facility] [[email or web address]] 1.20.114 350.1.13.10 4.2.7.2.686 [id number] [facility] 2021-01-03 00:00:00 2021-01-03 00:00:00 Telephone Siria Anderson [facility] PROMPT CARE RN [facility] & CHILD [facility] [[email or web address]] 1.2840.114 350.1.13.10 4.2.7.2.686 [id number] [facility] 2021-01-03 00:00:00 2021-01-03 00:00:00 Telephone Justin Ludaterell Stokes [facility] PR[facility] RN [facility] & CHILD [facility]ALTH [facility] 1.2.840.114 350.1.13.10 4.2.7.2.686 [id number] [facility] 2021-01-02 10:45:39 2021-01-02 11:10:03 Routine Visit Provider, Aaron Barlow [facility] PR[facility] RN [facility] & CHILD [facility] [[email or web address]] 1..840.114 350.1.13.10 4.2.7.2.686 [id number] [facility] 2021-01-02 10:45:00 2021-01-02 10:45:00 Outpatient R [facility] [id number] [facility] 2020-12-21 10:52:25 2020-12-21 11:26:21 Office Visit Palmira Phillips Joseph [facility] 1..840.114 350.1.13.10 4.2.7.2.686 [id number] [facility] 2020-12-21 10:30:00 2020-12-21 10:30:00 Outpatient P [facility] [id number] [facility] 2020-12-19 08:20:30 2020-12-19 09:35:30 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, Gianni Virk [facility] PR[facility] RN [facility] & CHILD [facility] [[email or web address]] 1..840.114 350.1.13.10 4.2.7.2.686 [id number] [facility] 2020-12-19 08:00:00 2020-12-19 08:00:00 Outpatient P [facility] [id number] [facility] 2020-12-19 00:00:00 2020-12-19 00:00:00 Abstract Anette Andersonmanuel Stokes [facility] PR[facility] RN [facility] & CHILD [facility] [[email or web address]] 1.2.840.114 350.1.13.10 4.2.7.2.686 [id number] [facility] 2020-12-07 00:00:00 2020-12-07 00:00:00 Telephone Anette Andersonmanuel Stokes [facility] RN [facility] & CHILD [facility] [[email or web address]] 1.2.840.114 350.1.13.10 4.2.7.2.686 [id number] [facility] 2020-12-05 10:15:59 2020-12-05 10:54:56 Routine Visit Antete Andersonmanuel Stokes [facility] PR[facility] RN [facility] & CHILD [facility] [[email or web address]] 1.2.840.114 350.1.13.10 4.2.7.2.686 [id number] [facility] 2020-12-05 10:15:59 2020-12-05 10:54:56 Routine Visit Anette Andersonmanuel Stokes [facility] RN [facility] & CHILD [facility] [[email or web address]] 1.2.840.114 350.1.13.10 4.2.7.2.686 [id number] [facility] 2020-12-05 10:15:00 2020-12-05 10:15:00 Outpatient R ANDERSONSIRIA [facility] [id number] [facility] 2020-11-07 08:42:18 2020-11-07 09:41:48 Routine Visit Luda Andersonterell Stokes [facility] PR[facility] RN [facility] & CHILD [facility] [[email or web address]] 1.2.840.114 350.1.13.10 4.2.7.2.686 [id number] [facility] 2020-11-07 08:45:00 2020-11-07 08:45:00 Outpatient R [facility]INSIRIA [facility] [id number] [facility] 2020-11-01 00:00:00 2020-11-01 00:00:00 Telephone JustinSiria [facility] RN [facility] & CHILD [facility] [[email or web address]] 1.2.840.114 350.1.13.10 4.2.7.2.686 [id number] [facility] 2020-10-27 00:00:00 2020-10-27 00:00:00 Patient Secure Msg Doctor Unassigned, [place] [facility] PR[facility] RN [facility] CHILD [facility] [[email or web address]] 1.2.840.114 350.1.13.10 4.2.7.2.686 [id number] [facility] 2020-10-27 00:00:00 2020-10-27 00:00:00 Telephone JustinSiria [facility] PR[facility] RN [facility] CHILD [facility] [[email or web address]] 1.2.840.114 350.1.13.10 4.2.7.2.686 [id number] [facility] 2020-10-26 00:00:00 2020-10-26 00:00:00 Telephone Luda Andersonterell Divya [facility] PR[facility] RN [facility] CHILD [facility] [[email or web address]] 1.2.840.114 350.1.13.10 4.2.7.2.686 [id number] [facility] 2020-10-19 13:59:38 2020-10-19 14:29:38 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, Cristin Jones [facility] PR[facility] RN [facility] & CHILD [facility] [[email or web address]] 1.2.840.114 350.1.13.10 4.2.7.2.686 [id number] [facility] 2020-10-19 14:00:00 2020-10-19 14:00:00 Outpatient P [facility] [id number] [facility] 2020-10-19 00:00:00 2020-10-19 00:00:00 Abstract Siria Anderson [facility] PROMPT [facility] RN [facility] & CHILD [facility] [[email or web address]] 1.840.114 350.1.13.10 4.2.7.2.686 [id number] [facility] 2020-10-10 08:57:06 2020-10-10 09:57:15 Initial Visit Siria Anderson [facility] PR[facility] RN [facility] MAT[facility] & CHILD [facility] [[email or web address]] 1.840.114 350.1.13.10 4.2.7.2.686 [id number] [facility] 2020-10-10 08:30:00 2020-10-10 08:30:00 Outpatient R [facility] [id number] [facility] 2020-10-10 00:00:00 2020-10-10 00:00:00 Orders Only Doctor Unassigned, [place] [facility] 1.840.114 350.1.13.10 4.2.7.2.686 [id number] [facility] 2020-06-24 16:00:00 2020-06-24 16:00:00 Outpatient JULISSA DRAKE [facility] [id number] [facility] 2020-06-24 11:27:53 2020-06-24 11:49:24 Office Visit Julissa Michele [facility] 1.840.114 350.1.13.10 4.2.7.2.686 [id number] [facility] 2020-06-24 11:00:00 2020-06-24 11:00:00 Outpatient R JULISSA MICHELE [facility] [id number] [facility] 2020-06-14 00:00:00 2020-06-14 00:00:00 Patient Outreach Reji Cruz [facility] 1.840.114 350.1.13.10 4.2.7.2.686 [id number] [facility] 2020-06-08 19:38:00 2020-06-09 12:50:00 Emergency Ann, Emma [place], [place] Milad Michele, Julissa Nunez [facility] 1.114 350.1.13.10 4.2.7.2.686 [id number] [facility] 2020-06-08 18:59:31 2020-06-08 19:19:31 Urgent Care Provider, [facility] Saadia Lovett [facility] Office [address] [facility] 1.114 350.1.13.10 4.2.7.2.686 [id number] [facility] 2020-06-08 18:40:00 2020-06-08 18:40:00 Outpatient SAADIA RAZO [facility] [id number] [facility] 2020-05-24 13:16:03 2020-05-24 14:05:26 Office Visit Nia Nelsontany [facility] 1.114 350.1.13.10 4.2.7.2.686 [id number] [facility] 2020-05-24 13:00:00 2020-05-24 13:00:00 Outpatient NIA CASTANEDATANY [facility] [id number] [facility] 2020-05-19 13:00:00 2020-05-19 13:00:00 Outpatient YOVANY ODONNELL [facility] [id number] [facility] 2020-05-19 00:00:00 2020-05-19 00:00:00 Orders Only Doctor Unassigned, [place] [facility] 1.114 350.1.13.10 4.2.7.2.686 [id number] [facility] 2020-03-28 19:14:32 2020-03-28 19:51:01 [facility] 1..840.114 350.1.13.10 4.2.7.2.686 [id number] [facility] 2020-03-28 19:20:00 2020-03-28 19:20:00 Outpatient R [facility] [id number] [facility] 2020-03-28 00:00:00 2020-03-28 00:00:00 Letter (Out) Doctor Unassigned, [place] [facility] 1..840.114 350.1.13.10 4.2.7.2.686 [id number] [facility] 2020-01-15 08:15:00 2020-01-15 08:15:00 Outpatient R JAIME CLEMENT [facility] [id number] [facility] 2019-03-12 14:26:14 2019-03-12 23:59:00 Outpatient RACQUEL JAIME [facility] [id number] [facility] Results Test Description Test Time Test Comments Results Result Co mments Source [facility] ONLY - SYPHILIS [id number] 16:24:15* Test Item Value Reference Range Interpretation Comme nts Syphilis IgG/IgM (test code = 22475-7) Non-reactive Non-reactive VASHTI (test code = VASHTI) Non-reactive - No serologic evidence of T. pallidum infection. Cannot exclude incubating or early syphilis. Submit a second specimen in 2-4 weeks if syphilis is clinically suspected. Equivocal - Further testing to follow. Reactive - Further testing to follow. Lab Interpretation (test code = 53582-5) Normal [facility] ONLY - SYPHILIS [id number] 16:24:15* Test Item Value Reference Range Interpretation Comme nts Syphilis IgG/IgM (test code = 34788-2) Non-reactive Non-reactive VASHTI (test code = VASHTI) Non-reactive - No serologic evidence of T. pallidum infection. Cannot exclude incubating or early syphilis. Submit a second specimen in 2-4 weeks if syphilis is clinically suspected. Equivocal - Further testing to follow. Reactive - Further testing to follow. Lab Interpretation (test code = 86102-3) Normal [facility]GLOBIN (A1C)2022-10-03 07:09:19* Test Item Value Reference Range Interpretation Comme nts HGB A1C (test code = 4548-4) 5.3 % 4.0-5.7 VASHTI (test code = VASHTI) Reference RangesNormal: <5.7%Prediabetes: 5.7 - 6.4%Diabetes: > 6.5% Lab Interpretation (test code = 91501-0) Normal [facility] HEMOGLOBIN (A1C)2022-10-03 07:09:19* Test Item Value Reference Range Interpretation Comme nts HGB A1C (test code = 4548-4) 5.3 % 4.0-5.7 VASHTI (test code = VASHTI) Reference RangesNormal: <5.7%Prediabetes: 5.7 - 6.4%Diabetes: > 6.5% Lab Interpretation (test code = 17243-1) Normal [facility]/2 AG-AB WITH [id number] 06:09:39* Test Item Value Reference Range Interpretation Comme nts HIV Semi-quantitative (test code = 04815-7) 0.09 Negative VASHTI (test code = VASHTI) Non-reactive for HIV-1 antigen and HIV-1/HIV-2 antibodies. ?No laboratory evidence of HIV infection. ?Repeat in 2-4 weeks if acute HIV infection is suspected. [facility] [id number] 06:09:39* Test Item Value Reference Range Interpretation Comme nts HCV Ab (test code = 75650-8) Negative HCV Semi-Quantitative (test code = 06397-5) 0.03 [facility] 1/2 AG-AB WITH [id number] 06:09:39* Test Item Value Reference Range Interpretation Comme nts HIV Semi-quantitative (test code = 86882-1) 0.09 Negative VASHTI (test code = VASHTI) Non-reactive for HIV-1 antigen and HIV-1/HIV-2 antibodies. ?No laboratory evidence of HIV infection. ?Repeat in 2-4 weeks if acute HIV infection is suspected. [facility] [id number] 06:09:39* Test Item Value Reference Range Interpretation Comme nts HCV Ab (test code = 58576-9) Negative HCV Semi-Quantitative (test code = 56415-0) 0.03 [facility] CenterCBC WITH [id number] 05:35:17* Test Item Value Reference Range Interpretation [...] 31.7 g/dL 31.6-35.1 RDW-SD (test code = 04759-9) 38.7 fL 39.0-49.9 L RDW-CV (test code = 788-0) 13.0 % 12.0-15.5 PLT (test code = 777-3) 442 See_Comment H [Automated messa ge] The system which generated this result transmitted reference range: 166 - 358 10*3/?L. The reference range was not used to interpret this result as normal/abnormal. MPV (test code = 34969-5) 10.9 fL 9.5-12.9 NRBC/100 WBC (test code = 3093112988) 0.0 See_Comment [Automated [employer] ssage] The system which generated this result transmitted reference range: 0.0 - 10.0 /100 WBCs. The reference range was not used to interpret this result as normal/abnormal. NRBC x10^3 (test code = 6870870653) See_Comment [Automated messa ge] The system which generated this result transmitted reference range: 10*3/?L. The reference range was not used to interpret this result as normal/abnormal. GRAN MAT (NEUT) % (test code = 770-8) 61.3 % IMM GRAN % (test code = 6926492073) 0.20 % LYMPH % (test code = 736-9) 32.8 % MONO % (test code = 5905-5) 4.5 % EOS % (test code = 713-8) 0.9 % BASO % (test code = 706-2) 0.3 % GRAN MAT x10^3(ANC) (test code = 7275992170) 6.11 10*3/uL 1.88-7.09 IMM GRAN x10^3 (test code = 1712098177) 0.00-0.06 LYMPH x10^3 (test code = 731-0) 3.27 10*3/uL 1.32-3.29 MONO x10^3 (test code = 742-7) 0.45 10*3/uL 0.33-0.92 EOS x10^3 (test code = 711-2) 0.09 10*3/uL 0.03-0.39 BASO x10^3 (test code = 704-7) 0.03 10*3/uL 0.01-0.07 Lab Interpretation (test code = 02637-2) Abnormal [facility] WITH [id number] 05:35:17* Test Item Value Reference Range Interpretation [...] 31.7 g/dL 31.6-35.1 RDW-SD (test code = 98841-4) 38.7 fL 39.0-49.9 L RDW-CV (test code = 788-0) 13.0 % 12.0-15.5 PLT (test code = 777-3) 442 See_Comment H [Automated messa ge] The system which generated this result transmitted reference range: 166 - 358 10*3/?L. The reference range was not used to interpret this result as normal/abnormal. MPV (test code = 29773-0) 10.9 fL 9.5-12.9 NRBC/100 WBC (test code = 1915443211) 0.0 See_Comment [Automated [employer] ssage] The system which generated this result transmitted reference range: 0.0 - 10.0 /100 WBCs. The reference range was not used to interpret this result as normal/abnormal. NRBC x10^3 (test code = 7660133688) See_Comment [Automated messa ge] The system which generated this result transmitted reference range: 10*3/?L. The reference range was not used to interpret this result as normal/abnormal. GRAN MAT (NEUT) % (test code = 770-8) 61.3 % IMM GRAN % (test code = 1048577907) 0.20 % LYMPH % (test code = 736-9) 32.8 % MONO % (test code = 5905-5) 4.5 % EOS % (test code = 713-8) 0.9 % BASO % (test code = 706-2) 0.3 % GRAN MAT x10^3(ANC) (test code = 1039647753) 6.11 10*3/uL 1.88-7.09 IMM GRAN x10^3 (test code = 9817064601) 0.00-0.06 LYMPH x10^3 (test code = 731-0) 3.27 10*3/uL 1.32-3.29 MONO x10^3 (test code = 742-7) 0.45 10*3/uL 0.33-0.92 EOS x10^3 (test code = 711-2) 0.09 10*3/uL 0.03-0.39 BASO x10^3 (test code = 704-7) 0.03 10*3/uL 0.01-0.07 Lab Interpretation (test code = 97852-5) Abnormal [facility] [id number] 16:35:00* Test Item Value Reference Range Interpretation Comme nts POCT PREG (test code = 1605) Negative On board controls acceptable with C Line (test code = 3574) Yes POCT PREG LOT # (test code = 3575) POCT PREG TEST DATE ( test code = 3576) [facility] [id number] 16:35:00* Test Item Value Reference Range Interpretation Comme nts POCT PREG (test code = 1605) Negative On board controls acceptable with C Line (test code = 3574) Yes POCT PREG LOT # (test code = 3575) POCT PREG TEST DATE ( test code = 3576) [facility] [id number] 15:41:00* Test Item Value Reference Range Interpretation Comme nts POCT PREG (test code = 1605) Negative On board controls acceptable with C Line (test code = 3574) Yes POCT PREG LOT # (test code = 3575) POCT PREG TEST DATE ( test code = 3576) [facility] [id number] 15:41:00* Test Item Value Reference Range Interpretation Comme nts POCT PREG (test code = 1605) Negative On board controls acceptable with C Line (test code = 3574) Yes POCT PREG LOT # (test code = 3575) POCT PREG TEST DATE ( test code = 3576) [facility] [id number] 15:41:00* Test Item Value Reference Range Interpretation Comme nts POCT PREG (test code = 1605) Negative On board controls acceptable with C Line (test code = 3574) Yes POCT PREG LOT # (test code = 3575) POCT PREG TEST DATE ( test code = 3576) [facility] [id number] 15:41:00* Test Item Value Reference Range Interpretation Comme nts POCT PREG (test code = 1605) Negative On board controls acceptable with C Line (test code = 3574) Yes POCT PREG LOT # (test code = 3575) POCT PREG TEST DATE ( test code = 3576) [facility] [id number] 15:41:00* Test Item Value Reference Range Interpretation Comme nts POCT PREG (test code = 1605) Negative On board controls acceptable with C Line (test code = 3574) Yes POCT PREG LOT # (test code = 3575) POCT PREG TEST DATE ( test code = 3576) [facility] CenterETHANOL2022-12-10 16:42:23 ALCOHOL<10mg/dL03/03/2022 10:42 AM [facility]<10 Zzsfkczj35-162 Toxic>100 Depression of MARKETING SERVICES COORDINATOR>400 Fatalities ReportedSt. Luke[facility] Medical CenterBASI METABOLIC PANEL (NA, K, CL, CO2, GLUCOSE, BUN, CREATININE, CA)2022-03-03 16:23:10* Test Item Value Reference Range Interpretation Comme [facility] NA (test code = 7153822357) 138 mmol/L 135-145 K (test code = 2613658649) 3.9 mmol/L 3.5-5.0 CL (test code = 3404937577) 106 mmol/L 98-108 CO2 TOTAL (test code = 6444637316) 24 mmol/L 23-31 AGAP (test code = 1562209913) 2-16 BUN (test code = 2245444691) 11 mg/dL 7-23 GLUCOSE (test code = 9716748966) 95 mg/dL 70-110 CREATININE (test code = 1046575536) 0.62 mg/dL 0.50-1.04 CALCIUM (test code = 5705421825) 9.4 mg/dL 8.6-10.6 eGFR (test code = 4529579348) mL/min/1.73m2 VASHTI (test code = VASHTI) Association [...] or urine or abnormalities in imaging tests). [facility] WITH [id number] 16:19:13* Test Item Value Reference Range Interpretation Comme nts WBC (test code = 6690-2) See_Comment [Automated [employer]] The system which generated this result transmitted reference range: 4.30 - 11.10 10*3/?L. The reference range was not used to interpret this result as normal/abnormal. RBC (test code = 789-8) See_Comment [Automated [employer]] The system which generated this result transmitted [...] 32.8 g/dL 31.6-35.1 RDW-SD (test code = 46366-5) 38.5 fL 39.0-49.9 L RDW-CV (test code = 788-0) 12.9 % 12.0-15.5 PLT (test code = 777-3) See_Comment [Automated messa ge] The system which generated this result transmitted reference range: 166 - 358 10*3/?L. The reference range was not used to interpret this result as normal/abnormal. MPV (test code = 97440-4) 10.2 fL 9.5-12.9 NRBC/100 WBC (test code = 1371414098) See_Comment [Automated [employer] ssage] The system which generated this result transmitted reference range: 0.0 - 10.0 /100 WBCs. The reference range was not used to interpret this result as normal/abnormal. NRBC x10^3 (test code = 0031738133) See_Comment [Automated [employer]] The system which generated this result transmitted reference range: 10*3/?L. The reference range was not used to interpret this result as normal/abnormal. GRAN MAT (NEUT) % (test code = 770-8) 54.2 % IMM GRAN % (test code = 5948643287) 0.30 % LYMPH % (test code = 736-9) 39.1 % MONO % (test code = 5905-5) 5.1 % EOS % (test code = 713-8) 1.2 % BASO % (test code = 706-2) 0.1 % GRAN MAT x10^3(ANC) (test code = 3184051356) 3.94 10*3/uL 1.88-7.09 IMM GRAN x10^3 (test code = 5002915434) 0.00-0.06 LYMPH x10^3 (test code = 731-0) 2.84 10*3/uL 1.32-3.29 MONO x10^3 (test code = 742-7) 0.37 10*3/uL 0.33-0.92 EOS x10^3 (test code = 711-2) 0.09 10*3/uL 0.03-0.39 BASO x10^3 (test code = 704-7) 0.01-0.07 Lab Interpretation (test code = 75966-1) Abnormal [facility] [id number] 20:48:00* Test Item Value Reference Range Interpretation Comme nts POCT PREG (test code = 1605) Negative On board controls acceptable with C Line (test code = 3574) Yes POCT PREG LOT # (test code = 3575) POCT PREG TEST DATE ( test code = 3576) [facility] URINALYSIS W SPECIFIC [id number] 22:32:00* Test Item Value Reference Range Interpretation [...] development and interpretation of all internal controls [facility] URINALYSIS W SPECIFIC [id number] 22:32:00* Test Item Value Reference Range Interpretation [...] development and interpretation of all internal controls [id number] 15:36:00* Test Item Value Reference Range Interpretation Comme nts POCT PREG (test code = 1605) Negative On board controls acceptable with C Line (test code = 3574) Yes POCT PREG LOT # (test code = 3575) POCT PREG TEST DATE ( test code = 3576) [facility]"
--- NOTE | 2024-03-27 21:54 | ER ---
Nurse's Notes [facility] Name: Thao Lang Age: 29 yrs Sex: Female : 1995 Arrival Date: 03/27/2024 Time: 21:29 Bed 10 Private MD: Diagnosis: Sprain of ankle Presentation: 03/27 21:38 Chief complaint: Patient states: SPRAINED LEFT ANKLE IN OCTOBER AND TRIPPED AGAIN ON dd2 [place] AND RE INJURED LEFT ANKLE. Coronavirus screen: At this time, the client does not indicate any symptoms associated with coronavirus-19. Ebola Screen: No symptoms or risks identified at this time. Initial Sepsis Screen: Does the patient meet any 2 criteria? No. Patient's initial sepsis screen is negative. Does the patient have a suspected source of infection? No. Patient's initial sepsis screen is negative. Risk Assessment: Do you want to hurt yourself or someone else? Patient reports no desire to harm self or others. Onset of symptoms is unknown. 21:38 Method Of Arrival: Ambulatory dd2 21:38 Acuity: IZABELLA 4 dd2 Triage Assessment: 21:39 General: Appears in no apparent distress. Behavior is calm, cooperative, appropriate dd2 for age. Pain: Complains of pain in left lateral ankle Pain currently is 4 out of 10 on a pain scale. EENT: No deficits noted. No signs and/or symptoms were reported regarding the EENT system. Neuro: Gotti Agitation-Sedation Scale (RASS): 0 - Alert and Calm Level of Consciousness is awake, alert, obeys commands, Oriented to person, place, time, situation, Appropriate for age. Cardiovascular: No deficits noted. Respiratory: No deficits noted. Airway is patent Respiratory effort is even, unlabored, Respiratory pattern is regular, symmetrical. GI: No deficits noted. No signs and/or symptoms were reported involving the gastrointestinal system. : No deficits noted. No signs and/or symptoms were reported regarding the genitourinary system. Derm: No deficits noted. No signs and/or symptoms reported regarding the dermatologic system. Musculoskeletal: Circulation, motion, and sensation intact. Range of motion: intact in all extremities, Pt ambulating without difficulty, steady gait, no limp or shuffle notedd. 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 - Infectious Disease History:: Denies. - Social history:: Smoking status: Patient denies any tobacco usage or history of. Screenin:54 [facility] ED Fall Risk Assessment (Adult) History of falling in the last 3 months, lg3 including since admission Yes- single mechanical fall (1 pt) Confusion or Disorientation No (0 pts) Intoxicated or Sedated No (0 pts) Impaired Gait No (0 pts) Mobility Assist Device Used No (0 pt) Altered Elimination No (0 pt) Score/Fall Risk Level 0 - 2 = Low Risk Oriented to surroundings, Maintained a safe environment, Educated pt \T\ family on fall prevention, incl call for assistance when getting out of bed, Assessed \T\ reinforced patient's understanding of fall precautions. Abuse screen: Denies threats or abuse. Denies injuries from another. Nutritional screening: No deficits noted. Tuberculosis screening: No symptoms or risk factors identified. Assessment: 21:50 General: provider at bedside. PT refusing treatment at this time. PT left ED ambulatory lg3 with steady gait. Vital Signs: 21:38 BP 137 / 80; Pulse 87; Resp 16; Temp 98.4; Pulse Ox 100% on R/A; Weight 124.74 kg; dd2 Height 5 ft. 3 in. ; Pain 4/10; 21:38 Body Mass Index 48.71 (124.74 kg, 160.02 cm) dd2 21:38 Pain Scale: Adult dd2 ED Course: 21:31 Patient arrived in ED. ra3 21:31 Adeel Garner FNP-C is PHCP. dr5 21:31 Prudencio Harrell MD is Attending Physician. dr5 21:39 Triage completed. dd2 21:39 Arm band placed on right wrist. Patient placed in an exam room, on a stretcher, on dd2 pulse oximetry. 21:52 Adeel Garner FNP-C is PHCP. dr5 21:52 Prudencio Harrell MD is Attending Physician. dr5 21:54 Patient has correct armband on for positive identification. lg3 21:54 No provider procedures requiring assistance completed. Patient did not have IV access lg3 during this emergency room visit. Administered Medications: No medications were administered Medication: 21:55 VIS not applicable for this client. lg3 Outcome: :54 Discharge ordered by . dr5 21:54 Discharged to Unknown PT left prior to DC summary lg3 21:54 Condition: stable 21:56 Patient left the ED. lg3 Signatures: Nai Verdugo RN RN lg3 Nina Caro ra3 AARON CISNEROS RN RN dd2 Adeel Garner, COATING LINE WORKER-C COATING LINE WORKER-Cdr5
--- NOTE | 2024-03-27 21:54 | EDPHYS ---
Physician Documentation [facility] Name: Thao Lang Age: 29 yrs Sex: Female : 1995 Arrival Date: 03/27/2024 Time: 21:29 Bed 10 Private MD: ED Physician Prudencio Harrell HPI: 03/27 21:52 This 29 yrs old Female presents to ER via Ambulatory with complaints of Ankle dr5 Swelling - Left. 21:52 Patient is a 29-year-old female coming in with left ankle swelling and pain since dr5 Kailee when she rolled her ankle. Patient is requesting cast.. 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 - Infectious Disease History:: Denies. - Social history:: Smoking status: Patient denies any tobacco usage or history of. ROS: 21:50 Constitutional: as per hpi dr5 Exam: 21:50 Musculoskeletal/extremity: Extremities: Went in to room and patient is refusing any dr5 care and wants to leave., 21:50 Constitutional: This is a well developed, well nourished patient who is awake, alert, dr5 and in no acute distress. Vital Signs: 21:38 BP 137 / 80; Pulse 87; Resp 16; Temp 98.4; Pulse Ox 100% on R/A; Weight 124.74 kg; dd2 Height 5 ft. 3 in. ; Pain 4/10; 21:38 Body Mass Index 48.71 (124.74 kg, 160.02 cm) dd2 21:38 Pain Scale: Adult dd2 MDM: 21:32 Medical Screening Exam initiated dr5 21:50 Differential diagnosis: fracture, sprain, Strain. Data reviewed: vital signs, nurses dr5 notes. Refusal of service: The patient/guardian displays adequate decision making capability and despite a detailed discussion of alternatives, benefits, risks, and consequences refuses: all X-rays. ED course: Patient is wants to leave without x-rays. Patient was ambulatory with steady gait upon leaving ER. Administered Medications: No medications were administered Disposition: 03/28 01:30 Co-signature as Attending Physician, Prudencio Harrell MD I agree with the assessment sp4 and plan of care. I reviewed the patient's care provided by the Advanced Practice Provider and agree with the diagnosis and treatment plan. Disposition Summary: 03/27/24 21:54 Discharge Ordered Notes: Location: Home dr5 Condition: Stable dr5 Diagnosis - Sprain of ankle dr5 Followup: dr5 - With: Emergency Department - When: As needed - Reason: Worsening of condition Followup: dr5 - With: Private Physician - When: 1 - 2 days - Reason: Recheck today's complaints, Continuance of care, Re-evaluation by your physician Discharge Instructions: - Discharge Summary Sheet dr5 - Ankle Sprain dr5 Forms: - Medication Reconciliation Form dr5 - Patient Portal Instructions dr5 - Leadership Thank You Letter dr5 Signatures: Dispatcher [employer] EDPrudencio Pate MD MD sp4 AARON CISNEROS RN RN dd2 Adeel Garner, GUMMED TAPE PRESS OPERATOR-C GUMMED TAPE PRESS OPERATOR-Cdr5 Corrections: (The following items were deleted from the chart) 03/27 21:53 21:52 Constitutional: as per hpi dr5 dr5
[2024-03-27 22:23] VITALS: BP 137/80; TEMP 98.4; O2SAT 100
== END 2024-03-27 21:56 | disposition home or self-care (01) ==
LOC: ER 21:29
DX: S93.402A Sprain of unspecified ligament of left ankle, initial encounter (principal)
CPT/HCPCS: 99282

== ENCOUNTER 2024-05-17 14:49 | Emergency (ER) | payer OTHER ==
--- OUTSIDE RECORDS SUMMARY | 2024-05-17 14:55 | XMS REPORT | Continuity of Care Document ---
Author Name Unknown Address [address] [place] [address] [facility] Address 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 Name Role Phone ESTEVAN ADAMS Primary Care Physician Unav PRESLEY Holman Attending Clinician Unavailable TISH LOCKWOOD Attending Clinician Unavailable JEB DAVIS Attending Clinician Unavailable YAN POPE Attending Clinician Unavailable CARMINE MONROE Attending Clinician Unavailable CARMINE MONROE Attending Clinician Unavailable Carmine Marcial Attending Clinician MARILOU JARAMILLO Attending Clinician Unavailable ESTEVAN ADAMS Attending Clinician Unavail able OMKAR HOU Attending Clinician OMKAR Bender Attending Clinician JULISSA Marti Attending Clinician Unavailable JENNIFER PURI Attending Clinician Unavaila galilea LOU_GCBZW_Cary_S Attending Clinician Unavaila Estevan Villalobos Attending Clinician + Jessika Manrique MD Attending Clinician [phone] JESSIKA MANRIQUE Attending Clinician Unavailable Unknown, Attending Attending Clinician Unavailab jaime GARCIAM, Jennifer King Attending Clinician [phone] Doctor Unassigned, Purvis Attending Clinician U salbador SIRIA ANDERSON Attending Clinician Unavailab TIANA Argueta Attending Clinician Unavailable Tiana Antonio MD Attending Clinician + [phone] Visit, [facility] Nurse Attending Clinician Unava ilpetar Anderson LAW RESEARCHER, Ludakali Stokes Attending Clinician + [phone] Jenna LARRY, Maisha Attending Clinician Unavailable EASTON RIOJAS Attending Clinician Unavailable Nurse, Naun chp Exp Cprit Obgyn Attending Clini luis felipe Unavailable JODEE ALMAZAN Attending Clinician Unavailable King MARC, Jodee Suarez Attending Clinician +[phone] Zbigniew Fernandez MD Attending Clinician + [phone] Glen Mcgraw MD Attending Clinician [phone] Leonel Mason MD Attending Clinician +0 Ultrasound, Ang-Mfm Attending Clinician Unavaila Katelyn Hutchinson MD Attending Clinician + [phone] KATELYN CRUZ Attending Clinician Unavailable KATELYN CRUZ Attending Clinician Unavailable Lab, Ang-Rmchdaren Attending Clinician Unavailable Aaron Agosto Attending Clinician + AARON ALICEA Attending Clinician Unavail able Provider, Ang-Rmchp Temp Attending Clinician Dalila vailable Silvana Hsieh MD Attending Clinician +[phone] SILVANA HSIEH Attending Clinician Unavailable SILVANA HSIEH Attending Clinician Unavailable Bo Hernandez Attending Clinician [phone] BO RIVERA Attending Clinician UnavailAracely SHARMA, Nguyễn Attending Clinician [phone] AMAYA PEÑA Attending Clinician Unavailable Casey SHARMA, Amaya Attending Clinician [phone] Palmira Phillips Attending Clinician UnavailYair Hamm MD Attending Clinician [phone] Gianni Whitaker MD Attending Clinician [phone] Robbie Wolfe MD, Amaral Attending Clinician + Julissa Michele MD Attending Clinician [phone] Reji Cruz DO Attending Clinician [phone] Seth LAW RESEARCHER, Emma Attending Clinician [phone] Tre MARC, Zoe Stinson Attending Clinician [phone] Provider, [facility] Attending Clinician Un available Bony SHARMA, Saadia Attending Clinician +[phone] SAADIA LOVETT Attending Clinician Unavailable Omar LAW RESEARCHER, Delano Attending Clinician [phone] DELANO NELSON Attending Clinician UnavailYOVANY Barnhart Attending Clinician Unavailable JAIME CLEMENT Attending Clinician Unavailable GC_GCBZW_Kadiyala_S Admitting Clinician UnavailJODEE León Admitting Clinician Unavailable Jodee Almazan MD Admitting Clinician [phone] Julissa Michele MD Admitting Clinician [phone] Payers Payer Name Policy Type Policy Number Effective Date Expirati on Date Source [facility] EMPLOYEE PLAN [id number] 2016 00:00:00 [employer] Exchange [id number] 2024 00:00:00 [facility] AMANDA DOYLE COPAY FOCUS 9 [id number] 2024 00:00:00 [employer] W/ [employer]ING [employer] OON [id number] 2024 00:00:00 [facility] STAR [id number] 2024 00:00:00 2025 00:00:00 [place] [facility] ST[facility] [id number] 2022 00:00:00 MEDICAID PENDING PENDING 2020 00:00:00 Problems Condition Name Condition Details Condition Category Status Onset Date Resolution Date Last Treatment Date Treating Clinician Comments Source Presence of intrauteri ne contracept yamila device Presence of intrauteri ne contracept yamila device Disease Active 10-04 00:00: 00 [facility] History of abnormal cervical Pap smear History of abnormal cervical Pap smear Disease Active 7-13 00:00: 00 Overview: Formattin g of this note might be different from the original. 09/2020 LGSIL [facility] Upper respirator y symptom Upper respirator y symptom Disease Active 1-18 00:00: 00 [facility] Anemia of mother in , antepartum Anemia of mother in , antepartum Disease Active 2020-03 2-16 00:00: 00 [facility] Morbid obesity Morbid obesity Disease Active 1-06 00:00: 00 [facility] Folliculit is Folliculit is Disease Resolve d 4-12 00:00: 00 2022-10-04 00:00:00 2022-10-04 08:51:23 [facility] Flu vaccine need Flu vaccine need Disease Resolve d 3-30 00:00: 00 2022-10-04 00:00:00 2022-10-04 08:51:25 [facility] Vaginal lesion Vaginal lesion Disease Resolve d 0 3-30 00:00: 00 2022-10-04 00:00:00 2022-10-04 08:51:39 [facility] Elevated blood-pres sure reading, without diagnosis of hypertensi on Elevated blood-pres sure reading, without diagnosis of hypertensi on Disease Resolve d 2-15 00:00: 00 2022-10-04 00:00:00 2022-10-04 08:51:26 [facility] COVID COVID Disease Resolve d 2-01 00:00: 00 2022-10-04 00:00:00 2022-10-04 08:51:27 [facility] Upper respirator y symptom Upper respirator y symptom Disease Resolve d 1-18 00:00: 00 2022-10-04 00:00:00 2022-10-04 08:51:28 [facility] Abnormal glandular Papanicola ou smear of cervix Abnormal glandular Papanicola ou smear of cervix Disease Resolve d 2021-0 8-04 00:00: 00 2022-10-04 00:00:00 2022-10-04 08:51:32 Overview: Formattin g of this note might be different from the original. LGSIL on 2020 pap smear, needs repeat in 12 months [facility] BMI 45.0-49.9, adult BMI 45.0-49.9, adult Disease Resolve d 7-19 00:00: 00 2022-10-04 00:00:00 2022-10-04 08:51:37 [facility] Screening examinatio n for STD (sexually transmitte d disease) Screening examinatio n for STD (sexually transmitte d disease) Disease Resolve d 2-16 00:00: 00 2022-10-04 00:00:00 2022-10-04 08:51:30 [facility] Research study patient Research study patient Disease Resolve d 2-16 00:00: 00 2022-04-19 00:00:00 2022-04-19 10:06:25 Overview: Formattin g of this note might be different from the original. PACT (fellow) [facility] GBS (group B Streptococ cus carrier), +RV culture, currently GBS (group B Streptococ cus carrier), +RV culture, currently Disease Resolve d 1-27 00:00: 00 2022-04-19 00:00:00 2022-04-19 10:06:35 Overview: Formattin g of this note might be different from the original. Address in labor and delivery. [facility] Anemia of mother in , antepartum Anemia of mother in , antepartum Disease Resolve d 2020-03 2-16 00:00: 00 2022-04-19 00:00:00 2022-04-19 10:06:42 [facility] Abnormal quad screen Abnormal quad screen Disease Resolve d 2020-03 2-16 00:00: 00 2022-04-19 00:00:00 2022-04-19 10:06:43 [facility] Supervisio n of high risk in third trimester Supervisio n of high risk in third trimester Disease Resolve d 2021-0 7-19 00:00: 00 2022-04-19 00:00:00 2022-04-19 10:06:21 [facility] SAB (spontaneo us ) SAB (spontaneo us ) Disease Resolve d 0 7-19 00:00: 00 2022-04-19 00:00:00 2022-04-19 10:06:23 [facility] in first trimester with history of ectopic in first trimester with history of ectopic Disease Resolve d 0 7-19 00:00: 00 2022-04-19 00:00:00 2022-04-19 10:06:27 [facility] Primigravi da in third trimester Primigravi da in third trimester Disease Resolve d 0 7-19 00:00: 00 2022-04-19 00:00:00 2022-04-19 10:06:29 [facility] History of ectopic History of ectopic Disease Resolve d 0 4-02 00:00: 00 2022-04-19 00:00:00 2022-04-19 10:06:32 [facility] 39 weeks gestation of 39 weeks gestation of Disease Resolve d 0 2-15 00:00: 00 2021-05-17 00:00:00 2021-05-17 08:21:48 [facility] Ectopic without intrauteri ne Ectopic without intrauteri ne Disease Resolve d 0 3-17 00:00: 00 2020-06-24 00:00:00 2020-06-24 11:40:20 [facility] Nexplanon removal Nexplanon removal Disease Resolve d 0 2-16 00:00: 00 2020-06-08 00:00:00 2021-10-08 00:44:25 [facility] Rubella immune Rubella immune Disease Resolve d 2013-0 1-24 00:00: 00 2016-05-10 00:00:00 2016-05-10 13:46:23 [facility] Insertion of implantabl e subdermal contracept yamila Insertion of implantabl e subdermal contracept yamila Disease Resolve d 04-17 00:00: 00 2016-05-10 00:00:00 2021-10-08 00:28:34 [facility] Anemia Anemia Disease Resolve d 04-01 00:00: 00 2016-05-10 00:00:00 2021-10-08 00:28:17 [facility] Encounter for routine gynecologi curtis examinatio n Encounter for routine gynecologi curtis examinatio n Disease Resolve d 03-30 00:00: 00 2016-05-10 00:00:00 2021-10-08 00:28:16 [facility] Allergies, Adverse Reactions, Alerts Allergy Name Allergy Type Status Severity Reaction(s) Onset Date Inactive Date Treating Clinician Comments Source NO KNOWN ALLERGIE S Drug Class Active [facility] Social History Social Habit Start Date Stop Date Quantity Comments Source ASSERTION Not Ying Queen - External Sexual orientation K castillo Queen - External History SDOH Alcohol Frequency [facility] History SDOH [facility] Alcohol Binge [facility] Gender identity [facility] Alcoholic beverage intake 2024-04-11 00:00:00 2024-04-11 00:00:00 Current drinker of alcohol (finding) [facility] History of Social function 2024-02-24 00:00:00 2024-02-24 00:00:00 Ying Queen - External Alcohol Comment 2024-02-24 00:00:00 2024-02-24 00:00:00 occasionally Ying Queen - External Alcohol intake 2022-12-02 00:00:00 2022-12-02 00:00:00 Current drinker of alcohol (finding) [facility] Exposure to SARS-CoV-2 (event) 2022-04-20 00:00:00 2022-04-30 10:31:00 Not sure [facility] Tobacco use and exposure 2021-12-06 00:00:00 2021-12-06 00:00:00 Smokeless tobacco non-user [facility] Sex 2021-07-03 01:43:03 2021-07-03 01:43:03 Female (finding) Ying Bret - External Sex assigned at 1995 00:00:00 1995 00:00:00 Ying Coyleshashidougie - External Smoking Status Start Date Stop Date Source Never smoked tobacco [facility] Medications Ordered Medication Name Filled Medication Name Start Date Stop Date Current Medication? Ordering Clinician Indication Dosage Frequency Signature (SIG) Comments Components Source NaCl 0.9% (NS) IV infusion 1,000 mL 04-11 06:45: 00 04-11 06:05 :01 No 1000mL at 999 mL/hr, Intravenou s, ONCE, 1 dose, On Sat04/11/24 at 0045, Routine [facility] butalbital- acetaminoph en-caff (ESGIC) 50-325-40 mg tablet 1 tablet 04-11 05:45: 00 04-11 06:06 :00 No 1{tbl} 1 tablet, Oral, ONCE, 1 dose, On Sat04/10/24 at 2345, ISAAK [facility] ketorolac (TORADOL) injection 30 mg 04-11 05:37: 00 04-11 06:06 :00 No 30mg 30 mg, Slow IV Push, ONCE, 1 dose, On Sat04/10/24 at 2345, ISAAK [facility] azelastine 137 mcg (0.1 %) nasal spray 12-05 00:00: 00 Yes [id number] 1{spray } Use 1 Olean in each nostril in the morning and 1 Olean in the evening. Use in each nostril as directed [facility] bromphenira mine-pseudo ephedrine-D M (BROMFED DM) 2-30-10 mg/5 mL syrup 12-05 00:00: 00 Yes [id number] 10mL Take 10 mL by mouth 4 (four) times daily as needed for Congestion /Allergies , Cough or Cold symptoms. [facility] fluticasone propionate 50 mcg/actuati on nasal spray 12-05 00:00: 00 Yes [id number] 1{spray } Use 1 Olean in each nostril in the morning. [facility] methylPREDN ISolone (MEDROL, KRISTA,) 4 mg tablets 12-05 00:00: 00 Yes [id number] Take by mouth SEE-INSTRU CTIONS. follow package directions [facility] bromphenira mine-pseudo ephedrine-D M (BROMFED DM) 2-30-10 mg/5 mL syrup 12-02 00:00: 00 Yes [id number] 10mL Take 10 mL by mouth 4 (four) times daily as needed for Congestion /Allergies , Cough or Cold symptoms. [facility] azelastine 137 mcg (0.1 %) nasal spray 12-02 00:00: 00 Yes [id number] 1{spray } Use 1 Olean in each nostril in the morning and 1 Olean in the evening. Use in each nostril as directed [facility] fluticasone propionate 50 mcg/actuati on nasal spray 12-02 00:00: 00 Yes [id number] 1{spray } Use 1 Olean in each nostril in the morning. [facility] methylPREDN ISolone (MEDROL, KRISTA,) 4 mg tablets 12-02 00:00: 00 Yes [id number] Take by mouth SEE-INSTRU CTIONS. follow package directions [facility] metroNIDAZO LE 500 mg tablet 10-04 00:00: 00 10-05 04:59 :00 No [id number] 2000mg Take 4 tablets by mouth once now for 1 dose. [facility] copper (PARAGARD T 380A) IUD 1 Intra Uterine Device 2-06 17:45: 00 04-30 17:01 :00 No [id number] 1{IUD} [facility] amoxicillin -clavulanat e (AUGMENTIN) 875-125 mg per tablet 2021-03- 00:00: 00 02-01 05:59 :00 No [id number] 1{tbl} Take 1 tablet by mouth in the morning and 1 tablet in the evening. Do all this for 7 days. [facility] phenazopyri dine 100 mg tablet 2021-03 1-02 00:00: 00 01-27 04:59 :00 No [id number] 200mg Take 2 tablets by mouth in the morning and 2 tablets at noon and 2 tablets in the evening. Do all this for 2 days. [facility] levonorgest rel-ethinyl estradiol (SRONYX) 0.1-20 mg-mcg per tablet 9-14 00:00: 00 10-02 00:00 :00 No [id number] 1{tbl} Take 1 tablet by mouth in the morning. [facility] ondansetron 4 mg disintegrat ing tablet 07-03 00:00: 00 10-02 00:00 :00 No [id number] 4mg Take 1 tablet by mouth every 8 (eight) hours as needed for Nausea and Vomiting (N/V). [facility] norethindro ne 0.35 mg tablet 3-30 00:00: 00 10-02 00:00 :00 No [id number] 1{tbl} Take 1 tablet by mouth daily. [facility] Immunizations Ordered Immunization Name Filled Immunization Name Date Status Comments Source TD, NOS 2023-01-18 00:00:00 Completed [facility] SARS-COV-2 COVID-19 MAURICIO/J&J VACCINE 2023-01-18 00:00:00 Completed [facility] TDAP 2023-01-18 00:00:00 Completed [facility] HPV 2023-01-18 00:00:00 Completed [facility] HPV9 2023-01-18 00:00:00 Completed [facility] DTaP, Unspecified Formulation 2023-01-18 00:00:00 Completed [facility] DPT/HIB 2023-01-18 00:00:00 Completed [facility] HEPATITIS A 2023-01-18 00:00:00 Completed [facility] Hep B, Unspecified Formulation 2023-01-18 00:00:00 Completed [facility] Meningococcal Polysaccharide (groups A, C, Y and W-135) conjugate vaccine (MCV4P) 2023-01-18 00:00:00 Completed [facility] MMR 2023-01-18 00:00:00 Completed [facility] IPV 2023-01-18 00:00:00 Completed [facility] Poliovirus, Live, Oral, Trivalent 2023-01-18 00:00:00 Completed [facility] TD, NOS 2021-07-03 00:00:00 Completed [facility] SARS-COV-2 COVID-19 MAURICIO/J&J VACCINE 2021-07-03 00:00:00 Completed [facility] TDAP 2021-07-03 00:00:00 Completed [facility] HPV 2021-07-03 00:00:00 Completed [facility] HPV9 2021-07-03 00:00:00 Completed [facility] DTaP, Unspecified Formulation 2021-07-03 00:00:00 Completed [facility] DPT/HIB 2021-07-03 00:00:00 Completed [facility] HEPATITIS A 2021-07-03 00:00:00 Completed [facility] Hep B, Unspecified Formulation 2021-07-03 00:00:00 Completed [facility] Meningococcal Polysaccharide (groups A, C, Y and W-135) conjugate vaccine (MCV4P) 2021-07-03 00:00:00 Completed [facility] MMR 2021-07-03 00:00:00 Completed [facility] IPV 2021-07-03 00:00:00 Completed [facility] Poliovirus, Live, Oral, Trivalent 2021-07-03 00:00:00 Completed [facility] TD, NOS 2021-05-29 00:00:00 Completed [facility] SARS-COV-2 COVID-19 MAURICIO/J&J VACCINE 2021-05-29 00:00:00 Completed [facility] TDAP 2021-05-29 00:00:00 Completed [facility] HPV 2021-05-29 00:00:00 Completed [facility] HPV9 2021-05-29 00:00:00 Completed [facility] DTaP, Unspecified Formulation 2021-05-29 00:00:00 Completed [facility] DPT/HIB 2021-05-29 00:00:00 Completed [facility] HEPATITIS A 2021-05-29 00:00:00 Completed [facility] Hep B, Unspecified Formulation 2021-05-29 00:00:00 Completed [facility] Meningococcal Polysaccharide (groups A, C, Y and W-135) conjugate vaccine (MCV4P) 2021-05-29 00:00:00 Completed [facility] MMR 2021-05-29 00:00:00 Completed [facility] IPV 2021-05-29 00:00:00 Completed [facility] Poliovirus, Live, Oral, Trivalent 2021-05-29 00:00:00 Completed [facility] HPV9 2021-05-17 00:00:00 Completed [facility] HPV9 2021-05-17 00:00:00 Completed [facility] HPV9 2021-05-17 00:00:00 Completed [facility] HPV9 2021-05-17 00:00:00 Completed [facility] HPV9 2021-05-17 00:00:00 Completed [facility] HPV9 2021-05-17 00:00:00 Completed [facility] HPV9 2021-05-17 00:00:00 Completed [facility] HPV9 2021-05-17 00:00:00 Completed [facility] HPV9 2021-05-17 00:00:00 Completed [facility] HPV9 2021-05-17 00:00:00 Completed [facility] HPV9 2021-05-17 00:00:00 Completed [facility] HPV9 2021-05-17 00:00:00 Completed [facility] HPV9 2021-05-17 00:00:00 Completed [facility] HPV9 2021-05-17 00:00:00 Completed [facility] HPV9 2021-05-17 00:00:00 Completed [facility] HPV9 2021-05-17 00:00:00 Completed [facility] HPV9 2021-05-17 00:00:00 Completed [facility] HPV9 2021-05-17 00:00:00 Completed [facility] HPV9 2021-05-17 00:00:00 Completed [facility] HPV9 2021-05-17 00:00:00 Completed [facility] HPV9 2021-05-17 00:00:00 Completed [facility] TD, NOS 2021-03-15 00:00:00 Completed [facility] SARS-COV-2 COVID-19 MAURICIO/J&J VACCINE 2021-03-15 00:00:00 Completed [facility] TDAP 2021-03-15 00:00:00 Completed [facility] HPV 2021-03-15 00:00:00 Completed [facility] DTaP, Unspecified Formulation 2021-03-15 00:00:00 Completed [facility] DPT/HIB 2021-03-15 00:00:00 Completed [facility] HEPATITIS A 2021-03-15 00:00:00 Completed [facility] Hep B, Unspecified Formulation 2021-03-15 00:00:00 Completed [facility] Meningococcal Polysaccharide (groups A, C, Y and W-135) conjugate vaccine (MCV4P) 2021-03-15 00:00:00 Completed [facility] MMR 2021-03-15 00:00:00 Completed [facility] IPV 2021-03-15 00:00:00 Completed [facility] Poliovirus, Live, Oral, Trivalent 2021-03-15 00:00:00 Completed [facility] TDAP 2021-02-22 00:00:00 Completed [facility] TDAP 2021-02-22 00:00:00 Completed [facility] TDAP 2021-02-22 00:00:00 Completed [facility] TDAP 2021-02-22 00:00:00 Completed [facility] TDAP 2021-02-22 00:00:00 Completed [facility] TDAP 2021-02-22 00:00:00 Completed [facility] TDAP 2021-02-22 00:00:00 Completed [facility] TDAP 2021-02-22 00:00:00 Completed [facility] TDAP 2021-02-22 00:00:00 Completed [facility] TDAP 2021-02-22 00:00:00 Completed [facility] TDAP 2021-02-22 00:00:00 Completed [facility] TDAP 2021-02-22 00:00:00 Completed [facility] [facility] TDAP 2021-02-22 00:00:00 Completed [facility] TDAP 2021-02-22 00:00:00 Completed [facility] TDAP 2021-02-22 00:00:00 Completed [facility] TDAP 2021-02-22 00:00:00 Completed [facility] TDAP 2021-02-22 00:00:00 Completed [facility] TDAP 2021-02-22 00:00:00 Completed [facility] TDAP 2021-02-22 00:00:00 Completed [facility] TDAP 2021-02-22 00:00:00 Completed [facility] TDAP 2021-02-22 00:00:00 Completed [facility] TD, NOS 2020-10-27 00:00:00 Completed [facility] SARS-COV-2 COVID-19 MAURICIO/J&J VACCINE 2020-10-27 00:00:00 Completed [facility] HPV 2020-10-27 00:00:00 Completed [facility] DTaP, Unspecified Formulation 2020-10-27 00:00:00 Completed [facility] DPT/HIB 2020-10-27 00:00:00 Completed [facility] HEPATITIS A 2020-10-27 00:00:00 Completed [facility] Hep B, Unspecified Formulation 2020-10-27 00:00:00 Completed [facility] Meningococcal Polysaccharide (groups A, C, Y and W-135) conjugate vaccine (MCV4P) 2020-10-27 00:00:00 Completed [facility] MMR 2020-10-27 00:00:00 Completed [facility] IPV 2020-10-27 00:00:00 Completed [facility] Poliovirus, Live, Oral, Trivalent 2020-10-27 00:00:00 Completed [facility] TDAP 2020-10-27 00:00:00 Completed [facility] SARS-COV-2 COVID-19 MAURICIO/J&J VACCINE 2020-07-26 00:00:00 Completed [facility] SARS-COV-2 COVID-19 MAURICIO/J&J VACCINE 2020-07-26 00:00:00 Completed [facility] SARS-COV-2 COVID-19 MAURICIO/J&J VACCINE 2020-07-26 00:00:00 Completed [facility] SARS-COV-2 COVID-19 MAURICIO/J&J VACCINE 2020-07-26 00:00:00 Completed [facility] SARS-COV-2 COVID-19 MAURICIO/J&J VACCINE 2020-07-26 00:00:00 Completed [facility] SARS-COV-2 COVID-19 MAURICIO/J&J VACCINE 2020-07-26 00:00:00 Completed [facility] SARS-COV-2 COVID-19 MAURICIO/J&J VACCINE 2020-07-26 00:00:00 Completed [facility] SARS-COV-2 COVID-19 MAURICIO/J&J VACCINE 2020-07-26 00:00:00 Completed [facility] SARS-COV-2 COVID-19 MAURICIO/J&J VACCINE 2020-07-26 00:00:00 Completed [facility] SARS-COV-2 COVID-19 MAURICIO/J&J VACCINE 2020-07-26 00:00:00 Completed [facility] SARS-COV-2 COVID-19 MAURICIO/J&J VACCINE 2020-07-26 00:00:00 Completed [facility] SARS-COV-2 COVID-19 MAURICIO/J&J VACCINE 2020-07-26 00:00:00 Completed [facility] SARS-COV-2 COVID-19 MAURICIO/J&J VACCINE 2020-07-26 00:00:00 Completed [facility] SARS-COV-2 COVID-19 MAURICIO/J&J VACCINE 2020-07-26 00:00:00 Completed [facility] SARS-COV-2 COVID-19 MAURICIO/J&J VACCINE 2020-07-26 00:00:00 Completed [facility] SARS-COV-2 COVID-19 MAURICIO/J&J VACCINE 2020-07-26 00:00:00 Completed [facility] SARS-COV-2 COVID-19 MAURICIO/J&J VACCINE 2020-07-26 00:00:00 Completed [facility] SARS-COV-2 COVID-19 MAURICIO/J&J VACCINE 2020-07-26 00:00:00 Completed [facility] SARS-COV-2 COVID-19 MAURICIO/J&J VACCINE 2020-07-26 00:00:00 Completed [facility] SARS-COV-2 COVID-19 MAURICIO/J&J VACCINE 2020-07-26 00:00:00 Completed [facility] SARS-COV-2 COVID-19 MAURICIO/J&J VACCINE 2020-07-26 00:00:00 Completed [facility] HPV 2013-11-11 00:00:00 Completed [facility] HPV 2013-11-11 00:00:00 Completed [facility] HPV 2013-11-11 00:00:00 Completed [facility] HPV 2013-11-11 00:00:00 Completed [facility] HPV 2013-11-11 00:00:00 Completed [facility] HPV 2013-11-11 00:00:00 Completed [facility] HPV 2013-11-11 00:00:00 Completed [facility] HPV 2013-11-11 00:00:00 Completed [facility] HPV 2013-11-11 00:00:00 Completed [facility] HPV 2013-11-11 00:00:00 Completed [facility] HPV 2013-11-11 00:00:00 Completed [facility] HPV 2013-11-11 00:00:00 Completed [facility] HPV 2013-11-11 00:00:00 Completed [facility] HPV 2013-11-11 00:00:00 Completed [facility] HPV 2013-11-11 00:00:00 Completed [facility] HPV 2013-11-11 00:00:00 Completed [facility] HPV 2013-11-11 00:00:00 Completed [facility] HPV 2013-11-11 00:00:00 Completed [facility] HPV 2013-11-11 00:00:00 Completed [facility] HPV 2013-11-11 00:00:00 Completed [facility] HPV 2013-11-11 00:00:00 Completed HPV 2013-09-11 00:00:00 Completed [facility] HPV 2013-09-11 00:00:00 Completed [facility] HPV 2013-09-11 00:00:00 Completed [facility] HPV 2013-09-11 00:00:00 Completed [facility] HPV 2013-09-11 00:00:00 Completed [facility] HPV 2013-09-11 00:00:00 Completed [facility] HPV 2013-09-11 00:00:00 Completed [facility] HPV 2013-09-11 00:00:00 Completed [facility] HPV 2013-09-11 00:00:00 Completed [facility] HPV 2013-09-11 00:00:00 Completed [facility] HPV 2013-09-11 00:00:00 Completed [facility] HPV 2013-09-11 00:00:00 Completed [facility] HPV 2013-09-11 00:00:00 Completed [facility] HPV 2013-09-11 00:00:00 Completed [facility] HPV 2013-09-11 00:00:00 Completed [facility] HPV 2013-09-11 00:00:00 Completed [facility] HPV 2013-09-11 00:00:00 Completed [facility] HPV 2013-09-11 00:00:00 Completed [facility] HPV 2013-09-11 00:00:00 Completed [facility] HPV 2013-09-11 00:00:00 Completed [facility] HPV 2013-09-11 00:00:00 Completed [facility] HPV 2013-05-10 00:00:00 Completed [facility] HPV 2013-05-10 00:00:00 Completed [facility] HPV 2013-05-10 00:00:00 Completed [facility] HPV 2013-05-10 00:00:00 Completed [facility] HPV 2013-05-10 00:00:00 Completed [facility] HPV 2013-05-10 00:00:00 Completed [facility] HPV 2013-05-10 00:00:00 Completed [facility] HPV 2013-05-10 00:00:00 Completed [facility] HPV 2013-05-10 00:00:00 Completed [facility] HPV 2013-05-10 00:00:00 Completed [facility] HPV 2013-05-10 00:00:00 Completed [facility] HPV 2013-05-10 00:00:00 Completed [facility] HPV 2013-05-10 00:00:00 Completed [facility] HPV 2013-05-10 00:00:00 Completed [facility] HPV 2013-05-10 00:00:00 Completed [facility] HPV 2013-05-10 00:00:00 Completed [facility] HPV 2013-05-10 00:00:00 Completed [facility] HPV 2013-05-10 00:00:00 Completed [facility] HPV 2013-05-10 00:00:00 Completed [facility] HPV 2013-05-10 00:00:00 Completed [facility] HPV 2013-05-10 00:00:00 Completed Meningococcal Polysaccharide (groups A, C, Y and W-135) conjugate vaccine (MCV4P) 2012-10-16 00:00:00 Completed [facility] Meningococcal Polysaccharide (groups A, C, Y and W-135) conjugate vaccine (MCV4P) 2012-10-16 00:00:00 Completed [facility] Meningococcal Polysaccharide (groups A, C, Y and W-135) conjugate vaccine (MCV4P) 2012-10-16 00:00:00 Completed [facility] Meningococcal Polysaccharide (groups A, C, Y and W-135) conjugate vaccine (MCV4P) 2012-10-16 00:00:00 Completed [facility] Meningococcal Polysaccharide (groups A, C, Y and W-135) conjugate vaccine (MCV4P) 2012-10-16 00:00:00 Completed Td 2010-10-28 00:00:00 Completed [facility] Td 2010-10-28 00:00:00 Completed [facility] Td 2010-10-28 00:00:00 Completed [facility] Td 2010-10-28 00:00:00 Completed [facility] Td 2010-10-28 00:00:00 Completed [facility] Td 2010-10-28 00:00:00 Completed [facility] Td 2010-10-28 00:00:00 Completed [facility] Td 2010-10-28 00:00:00 Completed [facility] Td 2010-10-28 00:00:00 Completed [facility] Td 2010-10-28 00:00:00 Completed [facility] Td 2010-10-28 00:00:00 Completed [facility] TD, NOS 2010-10-28 00:00:00 Completed [facility] TD, NOS 2010-10-28 00:00:00 Completed [facility] TD, NOS 2010-10-28 00:00:00 Completed [facility] TD, NOS 2010-10-28 00:00:00 Completed [facility] TD, NOS 2010-10-28 00:00:00 Completed [facility] TD, NOS 2010-10-28 00:00:00 Completed [facility] TD, NOS 2010-10-28 00:00:00 Completed [facility] TD, NOS 2010-10-28 00:00:00 Completed [facility] TD, NOS 2010-10-28 00:00:00 Completed [facility] TD, NOS 2010-10-28 00:00:00 Completed [facility] HEPATITIS A 2009-09-16 00:00:00 Completed [facility] HEPATITIS A 2009-09-16 00:00:00 Completed [facility] HEPATITIS A 2009-09-16 00:00:00 Completed [facility] HEPATITIS A 2009-09-16 00:00:00 Completed [facility] HEPATITIS A 2009-09-16 00:00:00 Completed HEPATITIS A 2008-07-28 00:00:00 Completed [facility] Meningococcal Polysaccharide (groups A, C, Y and W-135) conjugate vaccine (MCV4P) 2008-07-28 00:00:00 Completed [facility] MMR 2008-07-28 00:00:00 Completed [facility] TDAP 2008-07-28 00:00:00 Completed [facility] HEPATITIS A 2008-07-28 00:00:00 Completed [facility] Meningococcal Polysaccharide (groups A, C, Y and W-135) conjugate vaccine (MCV4P) 2008-07-28 00:00:00 Completed [facility] MMR 2008-07-28 00:00:00 Completed [facility] TDAP 2008-07-28 00:00:00 Completed [facility] HEPATITIS A 2008-07-28 00:00:00 Completed [facility] Meningococcal Polysaccharide (groups A, C, Y and W-135) conjugate vaccine (MCV4P) 2008-07-28 00:00:00 Completed [facility] MMR 2008-07-28 00:00:00 Completed [facility] TDAP 2008-07-28 00:00:00 Completed [facility] HEPATITIS A 2008-07-28 00:00:00 Completed [facility] Meningococcal Polysaccharide (groups A, C, Y and W-135) conjugate vaccine (MCV4P) 2008-07-28 00:00:00 Completed [facility] MMR 2008-07-28 00:00:00 Completed [facility] TDAP 2008-07-28 00:00:00 Completed [facility] HEPATITIS A 2008-07-28 00:00:00 Completed Meningococcal Polysaccharide (groups A, C, Y and W-135) conjugate vaccine (MCV4P) 2008-07-28 00:00:00 Completed MMR 2008-07-28 00:00:00 Completed TDAP 2008-07-28 00:00:00 Completed DTaP, Unspecified Formulation 2002-04-01 00:00:00 Completed [facility] MMR 2002-04-01 00:00:00 Completed [facility] IPV 2002-04-01 00:00:00 Completed [facility] DTaP, Unspecified Formulation 2002-04-01 00:00:00 Completed [facility] MMR 2002-04-01 00:00:00 Completed [facility] IPV 2002-04-01 00:00:00 Completed [facility] DTaP, Unspecified Formulation 2002-04-01 00:00:00 Completed [facility] MMR 2002-04-01 00:00:00 Completed [facility] IPV 2002-04-01 00:00:00 Completed [facility] DTaP, Unspecified Formulation 2002-04-01 00:00:00 Completed [facility] MMR 2002-04-01 00:00:00 Completed [facility] IPV 2002-04-01 00:00:00 Completed [facility] DTaP, Unspecified Formulation 2002-04-01 00:00:00 Completed MMR 2002-04-01 00:00:00 Completed IPV 2002-04-01 00:00:00 Completed DPT/HIB 1996 00:00:00 Completed [facility] Hep B, Unspecified Formulation 1996 00:00:00 Completed [facility] Poliovirus, Live, Oral, Trivalent 1996 00:00:00 Completed [facility] DPT/HIB 1996 00:00:00 Completed [facility] Hep B, Unspecified Formulation 1996 00:00:00 Completed [facility] Poliovirus, Live, Oral, Trivalent 1996 00:00:00 Completed [facility] DPT/HIB 1996 00:00:00 Completed [facility] Hep B, Unspecified Formulation 1996 00:00:00 Completed [facility] Poliovirus, Live, Oral, Trivalent 1996 00:00:00 Completed [facility] DPT/HIB 1996 00:00:00 Completed [facility] Hep B, Unspecified Formulation 1996 00:00:00 Completed [facility] Poliovirus, Live, Oral, Trivalent 1996 00:00:00 Completed [facility] DPT/HIB 1996 00:00:00 Completed Hep B, Unspecified Formulation 1996 00:00:00 Completed Poliovirus, Live, Oral, Trivalent 1996 00:00:00 Completed Hep B, Unspecified Formulation 1996 00:00:00 Completed [facility] Hep B, Unspecified Formulation 1996 00:00:00 Completed [facility] Hep B, Unspecified Formulation 1996 00:00:00 Completed [facility] Hep B, Unspecified Formulation 1996 00:00:00 Completed [facility] Hep B, Unspecified Formulation 1996 00:00:00 Completed Vital Signs Vital Name Observation Time Observation Value Comments S ource Systolic blood pressure 2024-04-11 07:00:00 140 mm[Hg] [facility] Diastolic blood pressure 2024-04-11 07:00:00 80 mm[Hg] [facility] Heart rate 2024-04-11 07:00:00 90 /min [facility] Body temperature 2024-04-11 07:00:00 37 Emmanuelle [facility] Oxygen saturation in Arterial blood by Pulse oximetry 2024-04-11 07:00:00 97 /min [facility] Respiratory rate 2024-04-11 06:06:00 18 /min [facility] Body height 2024-04-11 04:36:00 160 cm [facility] Body weight 2024-04-11 04:36:00 124.739 kg [facility] BMI 2024-04-11 04:36:00 48.71 kg/m2 [facility] Systolic blood pressure 2024-02-24 20:39:00 118 mm[Hg] Ying Seybold - External Diastolic blood pressure 2024-02-24 20:39:00 66 mm[Hg] Ying Coyleybold - External Heart rate 2024-02-24 20:39:00 80 /min Ying Coyleybdougie - External Body temperature 2024-02-24 20:39:00 36.94 Emmanuelle Ying Coyleybold - External Respiratory rate 2024-02-24 20:39:00 16 /min Ying Coyleybold - External Body height 2024-02-24 20:39:00 165.1 cm Ying Coyleybdougie - External Body weight 2024-02-24 20:39:00 128.459 kg Ying Coyleybdougie - External BMI 2024-02-24 20:39:00 47.13 kg/m2 Ying ybold - External Systolic blood pressure 2022-12-03 00:15:00 118 mm[Hg] [facility] Diastolic blood pressure 2022-12-03 00:15:00 79 mm[Hg] [facility] Heart rate 2022-12-03 00:15:00 99 /min [facility] Body temperature 2022-12-03 00:15:00 37.44 Emmanuelle [facility] Respiratory rate 2022-12-03 00:15:00 15 /min [facility] Body height 2022-12-03 00:15:00 165.1 cm [facility] Body weight 2022-12-03 00:15:00 138.256 kg [facility] BMI 2022-12-03 00:15:00 50.72 kg/m2 [facility] Oxygen saturation in Arterial blood by Pulse oximetry 2022-12-03 00:15:00 98 /min [facility] Systolic blood pressure 2022-10-02 18:30:00 136 mm[Hg] [facility] Diastolic blood pressure 2022-10-02 18:30:00 75 mm[Hg] [facility] Heart rate 2022-10-02 18:30:00 80 /min [facility] Body temperature 2022-10-02 18:30:00 36.83 Emmanuelle [facility] Respiratory rate 2022-10-02 18:30:00 18 /min [facility] Body height 2022-10-02 18:30:00 162.6 cm [facility] Body weight 2022-10-02 18:30:00 132.904 kg [facility] BMI 2022-10-02 18:30:00 50.29 kg/m2 [facility] Systolic blood pressure 2022-04-30 16:31:00 133 mm[Hg] [facility] Diastolic blood pressure 2022-04-30 16:31:00 84 mm[Hg] [facility] Heart rate 2022-04-30 16:31:00 76 /min [facility] Body temperature 2022-04-30 16:31:00 35.83 Emmanuelle [facility] Respiratory rate 2022-04-30 16:31:00 18 /min [facility] Body height 2022-04-30 16:31:00 162.6 cm [facility] Body weight 2022-04-30 16:31:00 131.815 kg [facility] BMI 2022-04-30 16:31:00 49.88 kg/m2 [facility] Systolic blood pressure 2022-04-19 15:39:00 119 mm[Hg] [facility] Diastolic blood pressure 2022-04-19 15:39:00 76 mm[Hg] [facility] Heart rate 2022-04-19 15:39:00 81 /min [facility] Body temperature 2022-04-19 15:39:00 36.61 Emmanuelle [facility] Respiratory rate 2022-04-19 15:39:00 18 /min [facility] Body height 2022-04-19 15:39:00 162.6 cm [facility] Body weight 2022-04-19 15:39:00 131.044 kg [facility] BMI 2022-04-19 15:39:00 49.59 kg/m2 [facility] Systolic blood pressure 2022-03-03 15:17:00 125 mm[Hg] [facility] Diastolic blood pressure 2022-03-03 15:17:00 87 mm[Hg] [facility] Heart rate 2022-03-03 15:17:00 74 /min [facility] Body temperature 2022-03-03 15:17:00 36.83 Emmanuelle [facility] Respiratory rate 2022-03-03 15:17:00 18 /min [facility] Body height 2022-03-03 15:17:00 162.6 cm [facility] Body weight 2022-03-03 15:17:00 113.399 kg [facility] BMI 2022-03-03 15:17:00 42.91 kg/m2 [facility] Oxygen saturation in Arterial blood by Pulse oximetry 2022-03-03 15:17:00 99 /min [facility] Systolic blood pressure 2022-02-14 20:28:00 138 mm[Hg] [facility] Diastolic blood pressure 2022-02-14 20:28:00 85 mm[Hg] [facility] Heart rate 2022-02-14 20:28:00 66 /min [facility] Body temperature 2022-02-14 20:28:00 36.33 Emmanuelle [facility] Respiratory rate 2022-02-14 20:28:00 20 /min [facility] Body height 2022-02-14 20:28:00 162.6 cm [facility] Body weight 2022-02-14 20:28:00 124.059 kg [facility] BMI 2022-02-14 20:28:00 46.95 kg/m2 [facility] Systolic blood pressure 2022-01-24 22:13:00 144 mm[Hg] Had to try 3x before getting a reading [facility] Diastolic blood pressure 2022-01-24 22:13:00 98 mm[Hg] Had to try 3x before getting a reading [facility] Heart rate 2022-01-24 22:13:00 97 /min [facility] Body temperature 2022-01-24 22:13:00 36.89 Emmanuelle [facility] Respiratory rate 2022-01-24 22:13:00 18 /min [facility] Body height 2022-01-24 22:13:00 162.6 cm [facility] Body weight 2022-01-24 22:13:00 125.919 kg [facility] BMI 2022-01-24 22:13:00 47.65 kg/m2 [facility] Oxygen saturation in Arterial blood by Pulse oximetry 2022-01-24 22:13:00 98 /min [facility] Systolic blood pressure 2021-12-06 13:30:00 124 mm[Hg] [facility] Diastolic blood pressure 2021-12-06 13:30:00 54 mm[Hg] [facility] Heart rate 2021-12-06 13:30:00 72 /min [facility] Body temperature 2021-12-06 13:30:00 36.28 Emmanuelle [facility] Respiratory rate 2021-12-06 13:30:00 18 /min [facility] Body height 2021-12-06 13:30:00 165.1 cm [facility] Body weight 2021-12-06 13:30:00 130.296 kg [facility] BMI 2021-12-06 13:30:00 47.80 kg/m2 [facility] Procedures Procedure Date / Time Performed Performing Clinician Source COMP. METABOLIC PANEL (02860) 2024-04-11 06:05:00 Carmine Monroe [facility] CBC WITH DIFF 2024-04-11 06:05:00 Carmine Monroe [facility] INFLUENZA A/B RSV COVID NAAT 2024-04-11 06:05:00 Carmine Monroe [facility] POCT TEST 2024-04-11 05:12:00 Julia Monroe [facility] POCT SARS-COV-2 ANTIGEN (BINAX NOW) 2022-12-03 00:31:00 Jessika Manrique [facility] CBC WITH DIFF 2022-10-02 19:30:00 Jennifer Puri [facility] GLYCOSYLATED HEMOGLOBIN (A1C) 2022-10-02 19:30:00 Jennifer Puri [facility] HCV ANTIBODY 2022-10-02 19:30:00 Jennifer Puri [facility] GC & CHLAMYDIA AMPLIFIED ASSAY 2022-10-02 19:30:00 Jennifer Puri [facility] HIV 1/2 AG-AB WITH REFLEX 2022-10-02 19:30:00 Jennifer Puri [facility] TRICHOMONAS AMPLIFIED ASSAY 2022-10-02 19:30:00 Jennifer Puri [facility] PAP SMEAR-LIQUID BASED-CP 2022-10-02 19:30:00 Jennifer Puri [facility] SYPHILIS IGG/IGM 2022-10-02 19:30:00 Jennifer Puri [facility] PATIENT FINANCIAL POLICY 2022-10-02 18:08:46 Doctor Unassigned, Purvis [facility] POCT TEST 2022-04-30 16:35:00 Jonel Adams [facility] DISCLOSURE AND CONSENT, MEDICAL AND SURGICAL PROCEDURES 2022-04-30 06:01:00 Doctor Unassigned, Purvis [facility] POCT TEST 2022-04-19 15:41:00 Jonel Adams [facility] BASIC METABOLIC PANEL (NA, K, CL, CO2, GLUCOSE, BUN, CREATININE, CA) 2022-03-03 15:57:00 Tiana Antonio [facility] ETHANOL 2022-03-03 15:57:00 Tiana Antonio [facility] CBC WITH DIFF 2022-03-03 15:57:00 Tiana Antonio [facility] URINALYSIS 2022-03-03 15:57:00 Tiana Antonio [facility] URINE DRUG (IMMUNOASSAY) - COMPREHENSIVE DRUG SCREEN W/O REFLEX 2022-03-03 15:57:00 Tiana Antonio [facility] HB ECG ROUTINE & RHYTHM STRIP 2022-03-03 15:55:48 Tiana Antonio [facility] POCT TEST 2022-02-14 20:48:00 Jonel Adams [facility] ASSIGNMENT OF BENEFITS 2022-02-14 19:38:06 Docto r Unassigned, Purvis [facility] POCT URINALYSIS 2022-01-24 22:31:00 Jessika Manrique [facility] POCT TEST 2021-12-06 15:36:00 Jonel Adams [facility] Encounters Start Date/Time End Date/Time Encounter Type Admission Type Attending Clinicians Care Facility Care Department Encounter ID Source 2021-01-22 06:46:10 Emergency [facility] [id number] [facility] 2024-04-28 23:58:00 2024-04-29 02:03:00 Emergency Emergency PRESLEY MUNOZ [facility] General Medicine [id number] [facility] 2024-04-27 08:00:00 2024-04-27 08:00:00 Outpatient TISH LOCKWOOD [id number] Ying mohsen 2024-04-24 14:45:00 2024-04-24 14:45:00 Outpatient JEB DAVIS [id number] [facility] Queen 2024-04-17 13:45:00 2024-04-17 13:45:00 Outpatient YAN GRAHAM [facility] [id number] [facility] 2024-04-13 08:15:00 2024-04-13 08:15:00 Outpatient SUSANJEB YING RODRIGUEZ [id number] [facility] 2024-04-10 22:41:00 2024-04-11 01:27:00 Emergency X CARMINE MONROE SHINTA [facility] ERT [id number] [facility] 2024-04-10 22:41:00 2024-04-11 01:27:00 Emergency Carmine Monroe [facility] 1.2.840.114 350.1.13.10 4.2.7.2.686 [id number] [facility] 2024-03-16 15:00:00 2024-03-16 15:00:00 Outpatient ELLA MARILOU YING RODRIGUEZ [id number] [facility] 2024-03-12 15:00:00 2024-03-12 15:00:00 Outpatient JEB DAVIS [id number] [facility] 2024-02-25 10:30:00 2024-02-25 10:30:00 Outpatient ELLA MARILOU YING RODRIGUEZ [id number] [facility] 2024-02-24 13:45:00 2024-02-24 13:45:00 Outpatient SUSAN JEB YING RODRIGUEZ [id number] [facility] 2023-09-18 14:00:00 2023-09-18 14:00:00 Outpatient YAN GRAHAM [facility] [id number] [facility] 2023-08-30 15:15:00 2023-08-30 15:15:00 Outpatient ESTEVAN ALCALA [facility] [id number] [facility] 2023-08-29 10:45:00 2023-08-29 10:45:00 Outpatient YAN GRAHAM [facility] [id number] [facility] 2023-02-21 15:00:00 2023-02-21 15:00:00 Outpatient R ESTEVAN ADAMS [facility] [id number] [facility] 2023-01-28 00:00:00 2023-01-28 00:00:00 Outpatient GC_GCBZW_Ka diyala_S PRIV PRIV [id number] [facility] 2023-01-22 08:30:00 2023-01-22 08:30:00 Outpatient ESTEVAN ALCALA [facility] [id number] [facility] 2023-01-19 00:00:00 2023-01-19 00:00:00 Outpatient GC_GCBZW_Ka diyala_S PRIV PRIV [id number] [facility] 2023-01-18 00:00:00 2023-01-18 00:00:00 Outpatient GC_GCBZW_Ka diyala_S PRIV PRIV [id number] [facility] 2023-01-18 00:00:00 2023-01-18 00:00:00 Telephone Estevan Adams [facility] [employer] [facility] MATERNAL & CHILD [facility] .2.840.114 350.1.13.10 4.2.7.2.686 [id number] [facility] 2023-01-14 14:00:00 2023-01-14 14:00:00 Outpatient R JUDE S, OMKAR FINK-JANETT S, OMKAR [facility] [id number] [facility] 2022-12-04 00:00:00 2022-12-04 00:00:00 Telephone [facility] 1.2.840.114 350.1.13.10 4.2.7.2.686 [id number] [facility] 2022-12-02 19:00:00 2022-12-02 19:35:03 Outpatient R JESSIKA MANRIQUE [facility] [id number] [facility] 2022-12-02 19:00:00 2022-12-02 19:20:00 Urgent Care Jessika Manrique, Attending [facility] 1.2840.114 350.1.13.10 4.2.7.2.686 [id number] [facility] 2022-10-04 00:00:00 2022-10-04 00:00:00 Telephone Jennifer Puri [facility] [employer] [facility] CHILD [facility] 1.2840.114 350.1.13.10 4.2.7.2.686 [id number] [facility] 2022-10-02 13:30:00 2022-10-02 14:31:55 Outpatient R JENNIFER PURI [facility] [id number] [facility] 2022-10-02 13:30:00 2022-10-02 14:31:55 Office Visit Jennifer Puri [facility] [employer] [facility] 1.840.114 350.1.13.10 4.2.7.2.686 [id number] [facility] 2022-10-02 00:00:00 2022-10-02 00:00:00 Orders Only Doctor Unassigned, Purvis [facility] 1.2840.114 350.1.13.10 4.2.7.2.686 [id number] [facility] 2022-07-04 13:15:00 2022-07-04 13:15:00 Outpatient SIRIA MAGANA [facility] [id number] [facility] 2022-07-04 13:15:00 2022-07-04 13:15:00 Outpatient SIRIA MAGANA [facility] [id number] [facility] 2022-07-04 13:00:00 2022-07-04 13:00:00 Outpatient SIRIA MAGANA [facility] [id number] [facility] 2022-04-30 10:00:00 2022-04-30 10:30:00 Office Visit Estevan Adams [facility] [employer] [facility] MATERNAL & CHILD [facility] 1.2.840.114 350.1.13.10 4.2.7.2.686 [id number] [facility] 2022-04-30 10:00:00 2022-04-30 10:00:00 Outpatient R ESTEVAN ADAMS [facility] [id number] [facility] 2022-04-30 00:00:00 2022-04-30 00:00:00 Orders Only Doctor Unassigned, Purvis [facility] 1.2.840.114 350.1.13.10 4.2.7.2.686 [id number] [facility] 2022-04-19 09:30:00 2022-04-19 10:05:06 Outpatient R ESTEVAN ADAMS [facility] [id number] [facility] 2022-04-19 09:30:00 2022-04-19 10:05:06 Office Visit Estevan Adams [facility] [employer] [facility] & CHILD [facility] 1.2.840.114 350.1.13.10 4.2.7.2.686 [id number] [facility] 2022-04-19 00:00:00 2022-04-19 00:00:00 Letter (Out) Estevan Adams [facility] [employer] [facility] CHILD [facility] 1.2.840.114 350.1.13.10 4.2.7.2.686 [id number] 107 [id number] [facility] 2022-03-07 09:45:00 2022-03-07 09:45:00 Outpatient R SIRIA ANDERSON [facility] [id number] [facility] 2022-03-03 09:22:00 2022-03-03 12:44:00 Emergency X TIANA ANTONIO [facility] ERT [id number] [facility] 2022-03-03 09:22:00 2022-03-03 12:44:00 Emergency Paco Tiana E [facility] 1..114 350.1.13.10 4.2.7.2.686 [id number] [facility] 2022-02-18 00:00:00 2022-02-18 00:00:00 RefEstevan Rivera [facility] [employer] [facility] MATERNAL & CHILD [facility] 1.0.114 350.1.13.10 4.2.7.2.686 [id number] [facility] 2022-02-14 13:30:00 2022-02-14 14:35:37 [facility] Jennifer [facility]uri [facility] [employer] [facility] CHILD [facility] 1..114 350.1.13.10 4.2.7.2.686 [id number] [facility] 2022-02-14 14:30:00 2022-02-14 14:30:00 Outpatient JENNIFER BALL [facility] [id number] [facility] 2022-02-14 13:30:00 2022-02-14 13:30:00 Outpatient JENNIFER BALL [facility] [id number] [facility] 2022-02-14 00:00:00 2022-02-14 00:00:00 Orders Only Doctor Unassigned, Purvis [facility] 1..114 350.1.13.10 4.2.7.2.686 [id number] [facility] 2022-02-14 00:00:00 2022-02-14 00:00:00 Telephone Siria Anderson [facility] [employer] [facility] CHILD [facility] 1..114 350.1.13.10 4.2.7.2.686 [id number] [facility] 2022-02-06 00:00:00 2022-02-06 00:00:00 Telephone Estevan Adams [facility] [employer] [facility] CHILD [facility] 1.2.840.114 350.1.13.10 4.2.7.2.686 [id number] [facility] 2022-01-24 17:20:00 2022-01-24 17:28:54 Outpatient R JESSIKA MANRIQUE [facility] [id number] [facility] 2022-01-24 17:20:00 2022-01-24 17:28:54 Urgent Care Jessika Manrique Unknown, Attending [facility] 1.840.114 350.1.13.10 4.2.7.2.686 [id number] [facility] 2022-01-01 00:00:00 2022-01-01 00:00:00 Refill Estevan Adams [facility] [employer] [facility] 1.0.114 350.1.13.10 4.2.7.2.686 [id number] [facility] 2022-01-01 00:00:00 2022-01-01 00:00:00 Telephone Estevan Adams [facility] [employer] [facility] CHILD [facility] 1.2840.114 350.1.13.10 4.2.7.2.686 [id number] [facility] 2021-12-29 00:00:00 2021-12-29 00:00:00 Refill Estevan Adams [facility] [employer] [facility] CHILD [facility] 1.2.840.114 350.1.13.10 4.2.7.2.686 [id number] [facility] 2021-12-06 08:15:00 2021-12-06 08:54:24 Office Visit Estevan Adams [facility] [employer] [facility] CHILD [facility] 1.2.840.114 350.1.13.10 4.2.7.2.686 [id number] 107 [id number] [facility] 2021-12-06 08:15:00 2021-12-06 08:54:24 Outpatient R ESTEVAN ADAMS [facility] [id number] [facility] 2021-12-06 08:15:00 2021-12-06 08:15:00 Outpatient R ESTEVAN ADAMS [facility] [id number] [facility] 2021-11-22 15:15:00 2021-11-22 15:15:00 Outpatient R ESTEVAN ADAMS [facility] [id number] [facility] 2021-11-21 00:00:00 2021-11-21 00:00:00 Telephone Siria Anderson [facility] [employer] [facility] CHILD [facility] 1..840.114 350.1.13.10 4.2.7.2.686 [id number] [facility] 2021-11-20 00:00:00 2021-11-20 00:00:00 Telephone Siria Anderson [facility] [employer] [facility] CHILD [facility] 1..840.114 350.1.13.10 4.2.7.2.686 [id number] [facility] 2021-09-03 00:00:00 2021-09-03 00:00:00 Refill Siria Anderson [facility] [employer] [facility] CHILD [facility] 1.2.840.114 350.1.13.10 4.2.7.2.686 [id number] 107 [id number] [facility] 2021-07-04 12:45:00 2021-07-04 13:31:36 Office Visit Siria Anderson Divya [facility] [employer] [facility] MATERNAL & [facility] 1.2.840.114 350.1.13.10 4.2.7.2.686 [id number] [facility] 2021-07-04 12:45:00 2021-07-04 13:31:36 Outpatient R LUDA ANDERSONKALI [facility] [id number] [facility] 2021-07-04 12:45:00 2021-07-04 12:45:00 Outpatient R LUDA ANDERSONKALI [facility] [id number] [facility] 2021-07-04 00:00:00 2021-07-04 00:00:00 Telephone Jenna Maisha [facility] 1.2.840.114 350.1.13.10 4.2.7.2.686 [id number] [facility] 2021-07-03 18:20:00 2021-07-03 18:53:48 Outpatient R JESSIKA MANRIQUE [facility] [id number] [facility] 2021-07-03 18:20:00 2021-07-03 18:53:48 Urgent Care Jessika Manrique [facility] 1.2.840.114 350.1.13.10 4.2.7.2.686 [id number] [facility] 2021-07-03 18:20:00 2021-07-03 18:53:48 Outpatient R JESSIKA MANRIQUE [facility] [id number] [facility] 2021-07-03 09:30:00 2021-07-03 09:30:00 Outpatient EASTON RIOJAS [id number] [facility] 2021-07-03 08:15:00 2021-07-03 08:15:00 Outpatient EASTON RIOJAS [id number] [facility] [place] 2021-07-03 00:00:00 2021-07-03 00:00:00 Patient Secure Siria Paulino [facility] [employer] [facility]ILD [facility] 1..840.114 350.1.13.10 4.2.7.2.686 [id number] [facility] 2021-06-21 13:00:00 2021-06-21 14:53:50 Outpatient R LUDA ANDERSONNESSAALIVIAKing [facility] [id number] [facility] 2021-06-21 13:00:00 2021-06-21 14:53:50 Office Visit Anette Andersonking Divya [facility] [employer] [facility] CHILD [facility] 1..840.114 350.1.13.10 4.2.7.2.686 [id number] [facility] 2021-06-21 13:00:00 2021-06-21 14:53:50 Outpatient R SIRIA ANDERSON [facility] [id number] [facility] 2021-05-31 08:00:00 2021-05-31 09:04:36 Outpatient R SIRIA ANDERSON [facility] [id number] [facility] 2021-05-31 08:00:00 2021-05-31 09:04:36 Routine Visit Anette Andersonking Stokes [facility] [employer] [facility] ..840.114 350.1.13.10 4.2.7.2.686 [id number] [facility] 2021-05-29 00:00:00 2021-05-29 00:00:00 Patient Secure Siria Paulino [facility] [employer] [facility]ILD [facility] 1..840.114 350.1.13.10 4.2.7.2.686 [id number] [facility] 2021-05-19 00:00:00 2021-05-19 00:00:00 Telephone BenalejandroEstevan knight [facility] [employer]ER [facility] MATERNAL & CHILD [facility] 1.2.840.114 350.1.13.10 4.2.7.2.686 [id number] [facility] 2021-05-17 13:00:00 2021-05-17 13:00:00 Nurse Visit Nurse, Naun Lima Exp Cprit Obgyn Siria Anderson [facility] [employer] [facility] CHILD [facility] 1.2840.114 350.1.13.10 4.2.7.2.686 [id number] [facility] 2021-05-17 13:00:00 2021-05-17 08:46:02 Outpatient R SIRIA ANDERSON [facility] [id number] [facility] 2021-05-17 08:00:00 2021-05-17 08:45:55 Nurse Visit Visit, Abdichp Siria Erazo [facility] [employer] [facility] 1.0.114 350.1.13.10 4.2.7.2.686 [id number] [facility] 2021-05-09 17:42:00 2021-05-12 16:52:00 Inpatient P JODEE ALMAZAN [facility] REZA [id number] [facility] 2021-05-09 17:42:00 2021-05-12 16:52:00 Hospital Encounter Jodee Almazan [facility] 1.0.114 350.1.13.10 4.2.7.2.686 [id number] [facility] 2021-05-10 17:00:00 2021-05-10 18:47:00 Surgery Zbigniew Fernandez [facility] 1.2840.114 350.1.13.10 4.2.7.2.686 [id number] [facility] 2021-05-10 09:54:00 2021-05-10 18:34:00 Anesthesia Event Glen Mcgraw, Leonel [facility] 1..114 350.1.13.10 4.2.7.2.686 [id number] [facility] 2021-05-09 13:15:00 2021-05-09 14:00:22 Outpatient R LUDA ANDERSONKALI [facility] [id number] [facility] 2021-05-09 13:15:00 2021-05-09 14:00:22 Routine Visit MartinezSiria [facility] [employer] WORK[employer] [facility] CHILD [facility] 1..114 350.1.13.10 4.2.7.2.686 [id number] 107 [id number] [facility] 2021-05-02 15:30:00 2021-05-02 15:58:07 Outpatient R LUDA ANDERSONKALI [facility] [id number] [facility] 2021-05-02 15:30:00 2021-05-02 15:58:07 Routine Visit Luda Andersonkali Stokes [facility] [employer] WORKER [facility] CHILD [facility] 1..114 350.1.13.10 4.2.7.2.686 [id number] 107 [id number] [facility] 2021-05-02 00:00:00 2021-05-02 00:00:00 Abstract Luda Andersonkali [facility] [employer] WORKER [facility] CHILD [facility] 1..114 350.1.13.10 4.2.7.2.686 [id number] [facility] 2021-04-28 09:30:00 2021-04-28 10:00:00 Computer Compositor Visit Ultrasound, Katelyn Whiting [facility] [employer] WORK[employer] [facility] CHILD [facility] 1..114 350.1.13.10 4.2.7.2.686 [id number] [facility] 2021-04-28 09:30:00 2021-04-28 09:30:00 Outpatient P [facility] [id number] [facility] 2021-04-28 09:30:00 2021-04-28 09:30:00 Outpatient P [facility] [id number] [facility] 2021-04-28 09:30:00 2021-04-28 09:30:00 Outpatient P KATELYN CRUZ, KATELYN [facility] [id number] [facility] 2021-04-25 15:30:00 2021-04-25 16:19:38 Outpatient R SIRIA ANDERSON [facility] [id number] [facility] 2021-04-25 15:30:00 2021-04-25 16:19:38 Routine Visit Siria Anderson [facility] [employer] WORKER [facility] MATERNAL & CHILD [facility] .840.114 350.1.13.10 4.2.7.2.686 [id number] 107 [id number] [facility] 2021-04-25 15:30:00 2021-04-25 15:30:00 Outpatient R SIRIA ANDERSON [facility] [id number] [facility] 2021-04-24 15:30:00 2021-04-24 15:30:00 Outpatient P [facility] [id number] [facility] 2021-04-21 00:00:00 2021-04-21 00:00:00 Telephone Siria Anderson [facility] [employer] WORKER [facility] MATERNAL & CHILD [facility] .840.114 350.1.13.10 4.2.7.2.686 [id number] 107 [id number] [facility] 2021-04-19 13:15:00 2021-04-19 13:15:00 Outpatient R SIRIA ANDERSON [facility] [id number] [facility] 2021-04-19 13:15:00 2021-04-19 13:15:00 Computer Compositor Visit Lab, [facility] Anderson, Siria Stokes [facility] [employer] WORKER [facility] CHILD [facility] 1..840.114 350.1.13.10 4.2.7.2.686 [id number] 107 [id number] [facility] 2021-04-19 13:00:00 2021-04-19 13:00:00 Outpatient P [facility] [id number] [facility] 2021-04-19 00:00:00 2021-04-19 00:00:00 Telephone Siria Anderson [facility] [employer] WORKER [facility] 1..840.114 350.1.13.10 4.2.7.2.686 [id number] 107 [id number] [facility] 2021-04-18 15:30:00 2021-04-18 16:11:31 Outpatient R ANDERSONSIRIA [facility] [id number] [facility] 2021-04-18 15:30:00 2021-04-18 16:11:31 Routine Visit Siria Anderson [facility] [employer] [facility] [facility] 1..840.114 350.1.13.10 4.2.7.2.686 [id number] 107 [id number] [facility] 2021-04-18 15:30:00 2021-04-18 16:11:31 Outpatient R SIRIA ANDERSON [facility] [id number] [facility] 2021-04-18 15:30:00 2021-04-18 15:30:00 Outpatient R SIRIA ANDERSON [facility] [id number] [facility] 2021-04-11 13:00:00 2021-04-11 14:15:13 Outpatient R SIRIA ANDERSON [facility] [id number] [facility] 2021-04-11 13:00:00 2021-04-11 14:15:13 Outpatient R ANDERSON, SIRIA [facility] [id number] [facility] 2021-04-11 13:00:00 2021-04-11 14:15:13 Routine Visit Anderson, Siria Stokes [facility] [employer] WORKER [facility] CHILD [facility] 1..840.114 350.1.13.10 4.2.7.2.686 [id number] 107 [id number] [facility] 2021-04-11 13:00:00 2021-04-11 13:00:00 Outpatient R ANDERSON, SIRIA [facility] [id number] [facility] 2021-03-29 00:00:00 2021-03-29 00:00:00 Telephone Siria Anderson [facility] [employer] WORKER [facility] CHILD [facility] 1..840.114 350.1.13.10 4.2.7.2.686 [id number] [facility] 2021-03-22 14:30:00 2021-03-22 14:51:40 Outpatient SIRIA MAGANA [facility] [id number] [facility] 2021-03-22 14:30:00 2021-03-22 14:51:40 Routine Visit Siria Anderson Antonio [facility] [employer] WORKER [facility] CHILD [facility] 1..840.114 350.1.13.10 4.2.7.2.686 [id number] 107 [id number] [facility] 2021-03-22 14:30:00 2021-03-22 14:30:00 Outpatient SIRIA MAGANA [facility] [id number] [facility] 2021-03-22 14:00:00 2021-03-22 14:30:00 Computer Compositor Visit Ultrasound, [facility] Siria Anderson Antonio [facility] [employer] [facility] [facility] 1.2.840.114 350.1.13.10 4.2.7.2.686 [id number] [facility] 2021-03-22 00:00:00 2021-03-22 00:00:00 Abstract Luda Andersonkali Stokes [facility] [employer] WORKER [facility] 1.2.840.114 350.1.13.10 4.2.7.2.686 [id number] [facility] 2021-03-15 00:00:00 2021-03-15 00:00:00 Patient Secure Msg Martinez Siria Stokes [facility] [employer] WORKER [facility] 1.2.840.114 350.1.13.10 4.2.7.2.686 [id number] [facility] 2021-03-14 00:00:00 2021-03-14 00:00:00 Marisol AntunezeSiria [facility] [employer] WORKER [facility] 1.2.840.114 350.1.13.10 4.2.7.2.686 [id number] [facility] 2021-03-13 00:00:00 2021-03-13 00:00:00 Aaron Dykes [facility] [employer] WORKER [facility] CHILD [facility] 1.2.840.114 350.1.13.10 4.2.7.2.686 [id number] [facility] 2021-03-13 00:00:00 2021-03-13 00:00:00 Siria Lechuga [facility] [employer] WORKER [facility]ILD [facility] 1.2.840.114 350.1.13.10 4.2.7.2.686 [id number] [facility] 2021-03-10 00:00:00 2021-03-10 00:00:00 RefSiria Webb [facility] [employer] WORKER [facility] MATERNAL & CHILD [facility] 1.2.840.114 350.1.13.10 4.2.7.2.686 [id number] [facility] 2021-03-10 00:00:00 2021-03-10 00:00:00 Aaron Dykes [facility] [employer] PRODUCTION WORKER [facility] MATERNAL & CHILD [facility] 1.2.840.114 350.1.13.10 4.2.7.2.686 [id number] [facility] 2021-03-09 15:45:00 2021-03-09 16:18:23 Outpatient SIRIA MAGANA [facility] [id number] [facility] 2021-03-09 15:45:00 2021-03-09 16:18:23 Routine Visit Siria Anderson [facility] [employer] WORKER [facility] CHILD [facility] 1.2.840.114 350.1.13.10 4.2.7.2.686 [id number] [facility] 2021-03-09 00:00:00 2021-03-09 00:00:00 Aaron Dykes [facility] [employer] WORKER [facility] CHILD [facility] 1.2.840.114 350.1.13.10 4.2.7.2.686 [id number] [facility] 2021-03-09 00:00:00 2021-03-09 00:00:00 Refill Siria Anderson [facility] [employer] WORKER [facility] CH[facility] 1.2.840.114 350.1.13.10 4.2.7.2.686 [id number] [facility] 2021-03-08 15:45:00 2021-03-08 15:45:00 Outpatient SIRIA MAGANA [facility] [id number] [facility] 2021-02-22 10:00:00 2021-02-22 11:57:26 Outpatient R AARON ALICEA [facility] [id number] [facility] 2021-02-22 09:59:09 2021-02-22 11:57:26 Routine Visit Provider, Aaron Barlow [facility] [employer] WORKER [facility] CHILD [facility] 1..840.114 350.1.13.10 4.2.7.2.686 [id number] 107 [id number] [facility] 2021-02-13 10:52:00 2021-02-13 11:22:00 Computer Compositor Visit Ultrasound, Silvana Ruff [facility] [employer] WORKER [facility] ..840.114 350.1.13.10 4.2.7.2.686 [id number] [facility] 2021-02-13 10:45:00 2021-02-13 10:45:00 Outpatient [facility] [id number] [facility] 2021-02-13 00:00:00 2021-02-13 00:00:00 Case Management Bo Rivera [facility] [employer] WORKER [facility] ..840.114 350.1.13.10 4.2.7.2.686 [id number] 107 [id number] [facility] 2021-02-03 00:00:00 2021-02-03 00:00:00 Telephone Aaron Alicea [facility] [employer] PRODUCTION WORKER [facility] CHILD [facility] ..840.114 350.1.13.10 4.2.7.2.686 [id number] [facility] 2021-02-01 10:45:00 2021-02-01 11:09:09 Outpatient BO MIRANDA [facility] [id number] [facility] 2021-02-01 10:04:55 2021-02-01 11:09:09 Routine Visit Provider, Bo Olivas [facility] [employer] WORKER [facility]ILD [facility] 1.2.840.114 350.1.13.10 4.2.7.2.686 [id number] 107 [id number] [facility] 2021-01-31 00:00:00 2021-01-31 00:00:00 Refill Onofre [facility]ly [facility] LUCAS?GALILEAKign [facility] MEDICAL OFFICE BUILDING 1..840.114 350.1.13.10 4.2.7.2.686 [id number] [facility] 2021-01-30 00:00:00 2021-01-30 00:00:00 Telephone Aaron Alicea [facility] [employer] WORKER [facility] CHILD [facility] 1..840.114 350.1.13.10 4.2.7.2.686 [id number] [facility] 2021-01-29 00:00:00 2021-01-29 00:00:00 Refill Siria Anderson [facility] [employer] WORKER [facility] 1..840.114 350.1.13.10 4.2.7.2.686 [id number] 107 [id number] [facility] 2021-01-29 00:00:00 2021-01-29 00:00:00 Refill On[facility] MEDICAL OFFICE BUILDING 1.840.114 350.1.13.10 4.2.7.2.686 [id number] [facility] 2021-01-19 14:40:00 2021-01-19 15:06:44 Outpatient R AMAYA PEÑA [facility] [id number] [facility] 2021-01-19 14:22:57 2021-01-19 15:06:44 Urgent Care Nguyễn Adhikari, [facility] LUCAS?[facility] MEDICAL OFFICE BUILDING 1.2.840.114 350.1.13.10 4.2.7.2.686 [id number] [facility] 2021-01-04 00:00:00 2021-01-04 00:00:00 Telephone Siria Anderson [facility] [employer] WORKER [facility] MATERNAL & CHILD [facility] 1.2.840.114 350.1.13.10 4.2.7.2.686 [id number] [facility] 2021-01-03 00:00:00 2021-01-03 00:00:00 Telephone Siria Anderson [facility] [employer] PR[employer] WORKER [facility] CHILD [facility] 1.2.840.114 350.1.13.10 4.2.7.2.686 [id number] 107 [id number] [facility] 2021-01-03 00:00:00 2021-01-03 00:00:00 Telephone AndersonSiria howard [facility] [employer] PR[employer] WORKER [facility] CHILD [facility] 1.2.840.114 350.1.13.10 4.2.7.2.686 [id number] 107 [id number] [facility] 2021-01-02 10:45:39 2021-01-02 11:10:03 Routine Visit Provider, AbdichAaron Todd [facility] [employer] WORKER [facility] 1.2.840.114 350.1.13.10 4.2.7.2.686 [id number] 107 [id number] [facility] 2021-01-02 10:45:00 2021-01-02 10:45:00 Outpatient R [facility] [id number] [facility] 2020-12-21 10:52:25 2020-12-21 11:26:21 Office Visit Palmira Phillips, Yair Borjas [facility] 1..114 350.1.13.10 4.2.7.2.686 [id number] [facility] 2020-12-21 10:30:00 2020-12-21 10:30:00 Outpatient P [facility] [id number] [facility] 2020-12-19 08:20:30 2020-12-19 09:35:30 Computer Compositor Visit Ultrasound, Gianni Virk [facility] [employer] WORKER [facility] MATERNAL & CHILD [facility] 1.84.114 350.1.13.10 4.2.7.2.686 [id number] [facility] 2020-12-19 08:00:00 2020-12-19 08:00:00 Outpatient P [facility] [id number] [facility] 2020-12-19 00:00:00 2020-12-19 00:00:00 Abstract Siria Anderson [facility] [employer] PRODUCTION WORKER [facility] MATERNAL & CHILD [facility] 1..114 350.1.13.10 4.2.7.2.686 [id number] 107 [id number] [facility] 2020-12-07 00:00:00 2020-12-07 00:00:00 Telephone Siria Anderson [facility] [employer] WORKER [facility] MATERNAL & CHILD [facility] 1.84.114 350.1.13.10 4.2.7.2.686 [id number] 107 [id number] [facility] 2020-12-05 10:15:59 2020-12-05 10:54:56 Routine Visit Siria Anderson [facility] [employer] WORKER [facility] 1.284.114 350.1.13.10 4.2.7.2.686 [id number] 107 [id number] [facility] 2020-12-05 10:15:59 2020-12-05 10:54:56 Routine Visit Anette Andersonking Stokes [facility] [employer] WORKER [facility] CHILD [facility] 1.2840.114 350.1.13.10 4.2.7.2.686 [id number] 107 [id number] [facility] 2020-12-05 10:15:00 2020-12-05 10:15:00 Outpatient R LUDA ANDERSONKALI [facility] [id number] [facility] 2020-11-07 08:42:18 2020-11-07 09:41:48 Routine Visit Anette Andersonking Divya [facility] [employer] [facility] 1.84.114 350.1.13.10 4.2.7.2.686 [id number] 107 [id number] [facility] 2020-11-07 08:45:00 2020-11-07 08:45:00 Outpatient SIRIA MAGANA [facility] [id number] [facility] 2020-11-01 00:00:00 2020-11-01 00:00:00 Telephone Luda Andersonkali Stokes [facility] [employer] WORKER [facility] 1..114 350.1.13.10 4.2.7.2.686 [id number] 107 [id number] [facility] 2020-10-27 00:00:00 2020-10-27 00:00:00 Patient Secure Msg Doctor Unassigned, Purvis [facility] [employer] WORKER [facility] CHILD [facility] 1..114 350.1.13.10 4.2.7.2.686 [id number] [facility] 2020-10-27 00:00:00 2020-10-27 00:00:00 Telephone Luda Andersonkali Stokes [facility] [employer] WORKER [facility] 1..114 350.1.13.10 4.2.7.2.686 [id number] 107 [id number] [facility] 2020-10-26 00:00:00 2020-10-26 00:00:00 Telephone iSria Anderson [facility] [employer] WORKER [facility] 1.2.840.114 350.1.13.10 4.2.7.2.686 [id number] 107 [id number] [facility] 2020-10-19 13:59:38 2020-10-19 14:29:38 Computer Compositor Visit Ultrasound, Cristin Jones [facility] [employer] WORKER [facility] 1..840.114 350.1.13.10 4.2.7.2.686 [id number] [facility] 2020-10-19 14:00:00 2020-10-19 14:00:00 Outpatient P [facility] [id number] [facility] 2020-10-19 00:00:00 2020-10-19 00:00:00 Abstract Siria Anderson [facility] [employer] WORKER [facility] CHILD [facility] 1..840.114 350.1.13.10 4.2.7.2.686 [id number] 107 [id number] [facility] 2020-10-10 08:57:06 2020-10-10 09:57:15 Initial Visit Siria Anderson [facility] [employer] WORKER [facility] 1.2.840.114 350.1.13.10 4.2.7.2.686 [id number] [facility] 2020-10-10 08:30:00 2020-10-10 08:30:00 Outpatient R [facility] [id number] [facility] 2020-10-10 00:00:00 2020-10-10 00:00:00 Orders Only Doctor Unassigned, Purvis [facility] 1.0.114 350.1.13.10 4.2.7.2.686 [id number] [facility] 2020-06-24 16:00:00 2020-06-24 16:00:00 Outpatient R [facility]IA [facility] [id number] [facility] 2020-06-24 11:27:53 2020-06-24 11:49:24 Office Visit Dustyphoenix [facility] 1.0.114 350.1.13.10 4.2.7.2.686 [id number] [facility] 2020-06-24 11:00:00 2020-06-24 11:00:00 Outpatient Divya MICHELE [facility] [id number] [facility] 2020-06-14 00:00:00 2020-06-14 00:00:00 Patient Outreach Reji Cruz [facility] 1.0.114 350.1.13.10 4.2.7.2.686 [id number] [facility] 2020-06-08 19:38:00 2020-06-09 12:50:00 Emergency Ann[facility] [place] 1.0.114 350.1.13.10 4.2.7.2.686 [id number] [facility] 2020-06-08 18:59:31 2020-06-08 19:19:31 Urgent Care Provider, [facility] Saadia Lovett [facility] Office Building One 1.2.114 350.1.13.10 4.2.7.2.686 [id number] [facility] 2020-06-08 18:40:00 2020-06-08 18:40:00 Outpatient SAADIA RAZO [facility] [id number] [facility] 2020-05-24 13:16:03 2020-05-24 14:05:26 [facility] 1.84.114 350.1.13.10 4.2.7.2.686 [id number] [facility] 2020-05-24 13:00:00 2020-05-24 13:00:00 [id number] 2020-05-19 13:00:00 2020-05-19 13:00:00 Outpatient R YOVANY DIOR [facility] [id number] [facility] 2020-05-19 00:00:00 2020-05-19 00:00:00 Orders Only Doctor Unassigned, [place] [facility] 1..114 350.1.13.10 4.2.7.2.686 [id number] [facility] 2020-03-28 19:14:32 2020-03-28 19:51:01 Urgent Care Amaya Peña [facility] Office [facility] 1.840.114 350.1.13.10 4.2.7.2.686 [id number] [facility] 2020-03-28 19:20:00 2020-03-28 19:20:00 Outpatient R [facility] [id number] [facility] 2020-03-28 00:00:00 2020-03-28 00:00:00 Letter (Out) Doctor Unassigned, [place] [facility] 1..114 350.1.13.10 4.2.7.2.686 [id number] [facility] 2020-01-15 08:15:00 2020-01-15 08:15:00 Outpatient R JAIME CLEMENT [facility] [id number] [facility] 2019-03-12 14:26:14 2019-03-12 23:59:00 Outpatient JAIME CLEMENT [facility] [id number] [facility] Results Test Description Test Time Test Comments Results Result Co mments Source [facility] with [id number] 06:29:27* Test Item Value Reference Range Interpretation Comme nts WBC (test code = 6690-2) 9.60 4.30-11.10 RBC (test code = 789-8) 4.66 3.93-5.25 HGB (test code = 718-7) 11.6 g/dL 11.6-15.0 HCT (test code = 4544-3) 37.6 % 35.7-45.2 MCV (test code = 787-2) 80.7 fL 80.6-95.5 MCH (test code = 785-6) 24.9 pg 25.9-32.8 L MCHC (test code = 786-4) 30.9 g/dL 31.6-35.1 L RDW-SD (test code = 43675-3) 39.6 fL 39.0-49.9 RDW-CV (test code = 788-0) 13.7 % 12.0-15.5 PLT (test code = 777-3) 426 166-358 H MPV (test code = 16989-4) 10.1 fL 9.5-12.9 NRBC/100 WBC (test code = 7576765126) 0.0 0.0-10.0 NRBC x10^3 (test code = 3811467448) See_Comment [Automated messa ge] The system which generated this result transmitted reference range: 10*3/?L. The reference range was not used to interpret this result as normal/abnormal. GRAN MAT (NEUT) % (test code = 770-8) 55.7 % IMM GRAN % (test code = 6894840306) 0.40 % LYMPH % (test code = 736-9) 37.1 % MONO % (test code = 5905-5) 5.6 % EOS % (test code = 713-8) 0.8 % BASO % (test code = 706-2) 0.4 % GRAN MAT x10^3(ANC) (test code = 3988111409) 5.34 10*3/uL 1.88-7.09 IMM GRAN x10^3 (test code = 2622040130) 0.04 10*3/uL 0.00-0.06 LYMPH x10^3 (test code = 731-0) 3.56 10*3/uL 1.32-3.29 H MONO x10^3 (test code = 742-7) 0.54 10*3/uL 0.33-0.92 EOS x10^3 (test code = 711-2) 0.08 10*3/uL 0.03-0.39 BASO x10^3 (test code = 704-7) 0.04 10*3/uL 0.01-0.07 Lab Interpretation (test code = 03997-3) Abnormal [facility] [id number] 05:12:00* Test Item Value Reference Range Interpretation Comme nts POCT PREG (test code = 1605) Negative On board controls acceptable with C Line (test code = 3574) Yes POCT PREG LOT # (test code = 3575) [id number] POCT PREG TEST DATE ( test code = 3576) 2025-03-09 Lab Interpretation (test cod e = 59328-3) Normal [facility] SARS-COV-2 ANTIGEN (BINAX NOW)2022-12-03 00:31:00* Test Item Value Reference Range Interpretation Comme nts POCT SARS-COV-2 ANTIGEN (test code = 99185-3) Not Detected Not Detected On board controls acceptable with C Line (test code = 3574) Yes VASHTI (test code = VASHTI) accurate developme nt and interpretation of all internal controls Lab Interpretation (test code = 43609-1) Normal [facility] SYPHILIS [id number] 16:24:15* Test Item Value Reference Range Interpretation Comme nts Syphilis IgG/IgM (test code = 97547-8) Non-reactive Non-reactive VASHTI (test code = VASHTI) Non-reactive - No serologic evidence of T. pallidum infection. Cannot exclude incubating or early syphilis. Submit a second specimen in 2-4 weeks if syphilis is clinically suspected. Equivocal - Further testing to follow. Reactive - Further testing to follow. Lab Interpretation (test code = 99019-6) Normal [facility] SYPHILIS [id number] 16:24:15* Test Item Value Reference Range Interpretation Comme nts Syphilis IgG/IgM (test code = 90526-4) Non-reactive Non-reactive VASHTI (test code = VASHTI) Non-reactive - No serologic evidence of T. pallidum infection. Cannot exclude incubating or early syphilis. Submit a second specimen in 2-4 weeks if syphilis is clinically suspected. Equivocal - Further testing to follow. Reactive - Further testing to follow. Lab Interpretation (test code = 90789-6) Normal [facility] (A1C)2022-10-03 07:09:19* Test Item Value Reference Range Interpretation Comme nts HGB A1C (test code = 4548-4) 5.3 % 4.0-5.7 VASHTI (test code = VASHTI) Reference RangesNormal: <5.7%Prediabetes: 5.7 - 6.4%Diabetes: > 6.5% Lab Interpretation (test code = 03100-4) Normal [facility] (A1C)2022-10-03 07:09:19* Test Item Value Reference Range Interpretation Comme nts HGB A1C (test code = 4548-4) 5.3 % 4.0-5.7 VASHTI (test code = VASHTI) Reference RangesNormal: <5.7%Prediabetes: 5.7 - 6.4%Diabetes: > 6.5% Lab Interpretation (test code = 88528-2) Normal [facility]2 AG-AB WITH [id number] 06:09:39* Test Item Value Reference Range Interpretation Comme nts HIV Semi-quantitative (test code = 36536-1) 0.09 Negative VASHTI (test code = VASHTI) Non-reactive for HIV-1 antigen and HIV-1/HIV-2 antibodies. ?No laboratory evidence of HIV infection. ?Repeat in 2-4 weeks if acute HIV infection is suspected. [facility] [id number] 06:09:39* Test Item Value Reference Range Interpretation Comme nts HCV Ab (test code = 64136-2) Negative HCV Semi-Quantitative (test code = 29702-5) 0.03 [facility] AG-AB WITH [id number] 06:09:39* Test Item Value Reference Range Interpretation Comme nts HIV Semi-quantitative (test code = 48059-8) 0.09 Negative VASHTI (test code = VASHTI) Non-reactive for HIV-1 antigen and HIV-1/HIV-2 antibodies. ?No laboratory evidence of HIV infection. ?Repeat in 2-4 weeks if acute HIV infection is suspected. [facility] [id number] 06:09:39* Test Item Value Reference Range Interpretation Comme nts HCV Ab (test code = 46168-0) Negative HCV Semi-Quantitative (test code = 50863-7) 0.03 [facility]CBC WITH [id number] 05:35:17* Test Item Value Reference Range Interpretation Comme nts WBC (test code = 6690-2) 9.97 See_Comment [Automated messa ge] The system which generated this result transmitted reference range: 4.30 - 11.10 10*3/?L. The reference range was not used to interpret this result as normal/abnormal. RBC (test code = 789-8) 5.20 See_Comment [Automated LXSNa ge] The system which generated this result [...] 31.7 g/dL 31.6-35.1 RDW-SD (test code = 06898-0) 38.7 fL 39.0-49.9 L RDW-CV (test code = 788-0) 13.0 % 12.0-15.5 PLT (test code = 777-3) 442 See_Comment H [Automated messa ge] The system which generated this result transmitted reference range: 166 - 358 10*3/?L. The reference range was not used to interpret this result as normal/abnormal. MPV (test code = 30039-8) 10.9 fL 9.5-12.9 NRBC/100 WBC (test code = 6134389122) 0.0 See_Comment [Automated me ssage] The system which generated this result transmitted reference range: 0.0 - 10.0 /100 WBCs. The reference range was not used to interpret this result as normal/abnormal. NRBC x10^3 (test code = 4987530386) See_Comment [Automated messa ge] The system which generated this result transmitted reference range: 10*3/?L. The reference range was not used to interpret this result as normal/abnormal. GRAN MAT (NEUT) % (test code = 770-8) 61.3 % IMM GRAN % (test code = 3870169913) 0.20 % LYMPH % (test code = 736-9) 32.8 % MONO % (test code = 5905-5) 4.5 % EOS % (test code = 713-8) 0.9 % BASO % (test code = 706-2) 0.3 % GRAN MAT x10^3(ANC) (test code = 3995813696) 6.11 10*3/uL 1.88-7.09 IMM GRAN x10^3 (test code = 1578691275) 0.00-0.06 LYMPH x10^3 (test code = 731-0) 3.27 10*3/uL 1.32-3.29 MONO x10^3 (test code = 742-7) 0.45 10*3/uL 0.33-0.92 EOS x10^3 (test code = 711-2) 0.09 10*3/uL 0.03-0.39 BASO x10^3 (test code = 704-7) 0.03 10*3/uL 0.01-0.07 Lab Interpretation (test code = 67381-9) Abnormal [facility] WITH [id number] 05:35:17* Test Item Value Reference Range Interpretation [...] 31.7 g/dL 31.6-35.1 RDW-SD (test code = 67220-6) 38.7 fL 39.0-49.9 L RDW-CV (test code = 788-0) 13.0 % 12.0-15.5 PLT (test code = 777-3) 442 See_Comment H [Automated LXSNa ge] The system which generated this result transmitted reference range: 166 - 358 10*3/?L. The reference range was not used to interpret this result as normal/abnormal. MPV (test code = 92942-8) 10.9 fL 9.5-12.9 NRBC/100 WBC (test code = 9385874374) 0.0 See_Comment [Automated [employer] ssage] The system which generated this result transmitted reference range: 0.0 - 10.0 /100 WBCs. The reference range was not used to interpret this result as normal/abnormal. NRBC x10^3 (test code = 2501769764) See_Comment [Automated LXSNa ge] The system which generated this result transmitted reference range: 10*3/?L. The reference range was not used to interpret this result as normal/abnormal. GRAN MAT (NEUT) % (test code = 770-8) 61.3 % IMM GRAN % (test code = 9761567499) 0.20 % LYMPH % (test code = 736-9) 32.8 % MONO % (test code = 5905-5) 4.5 % EOS % (test code = 713-8) 0.9 % BASO % (test code = 706-2) 0.3 % GRAN MAT x10^3(ANC) (test code = 4523958390) 6.11 10*3/uL 1.88-7.09 IMM GRAN x10^3 (test code = 1568392098) 0.00-0.06 LYMPH x10^3 (test code = 731-0) 3.27 10*3/uL 1.32-3.29 MONO x10^3 (test code = 742-7) 0.45 10*3/uL 0.33-0.92 EOS x10^3 (test code = 711-2) 0.09 10*3/uL 0.03-0.39 BASO x10^3 (test code = 704-7) 0.03 10*3/uL 0.01-0.07 Lab Interpretation (test code = 33002-8) Abnormal [facility] [id number] 16:35:00* Test Item Value Reference Range Interpretation Comme nts POCT PREG (test code = 1605) Negative On board controls acceptable with C Line (test code = 3574) Yes POCT PREG LOT # (test code = 3575) POCT PREG TEST DATE ( test code = 3576) [facility] [id number] 16:35:00* Test Item Value Reference Range Interpretation Comme nts POCT PREG (test code = 1605) Negative On board controls acceptable with C Line (test code = 3574) Yes POCT PREG LOT # (test code = 3575) POCT PREG TEST DATE ( test code = 3576) [facility] [id number] 15:41:00* Test Item Value Reference Range Interpretation Comme nts POCT PREG (test code = 1605) Negative On board controls acceptable with C Line (test code = 3574) Yes POCT PREG LOT # (test code = 3575) POCT PREG TEST DATE ( test code = 3576) [facility] [id number] 15:41:00* Test Item Value Reference Range Interpretation Comme nts POCT PREG (test code = 1605) Negative On board controls acceptable with C Line (test code = 3574) Yes POCT PREG LOT # (test code = 3575) POCT PREG TEST DATE ( test code = 3576) [facility] [id number] 15:41:00* Test Item Value Reference Range Interpretation Comme nts POCT PREG (test code = 1605) Negative On board controls acceptable with C Line (test code = 3574) Yes POCT PREG LOT # (test code = 3575) POCT PREG TEST DATE ( test code = 3576) [facility]PO[facility] [id number] 15:41:00* Test Item Value Reference Range Interpretation Comme nts POCT PREG (test code = 1605) Negative On board controls acceptable with C Line (test code = 3574) Yes POCT PREG LOT # (test code = 3575) POCT PREG TEST DATE ( test code = 3576) [facility]PO[facility] [id number] 15:41:00* Test Item Value Reference Range Interpretation Comme nts POCT PREG (test code = 1605) Negative On board controls acceptable with C Line (test code = 3574) Yes POCT PREG LOT # (test code = 3575) POCT PREG TEST DATE ( test code = 3576) [facility] CampusETHANOL2022-12-10 16:42:23 ALCOHOL<10mg/dL03/03/2022 10:42 [facility]10 [id number] Toxic>100 Depression of TREE SURGEON HELPER>400 Fatalities ReportedUnChristus [facility] – San MarcosBASI METABOLIC PANEL (NA, K, CL, CO2, GLUCOSE, BUN, CREATININE, CA)2022-03-03 16:23:10* Test Item Value Reference Range Interpretation Comme nts NA (test code = 3172113150) 138 mmol/L 135-145 K (test code = 3723316299) 3.9 mmol/L 3.5-5.0 CL (test code = 5188402091) 106 mmol/L 98-108 CO2 TOTAL (test code = 2871080796) 24 mmol/L 23-31 AGAP (test code = 7076061452) 2-16 BUN (test code = 5640771824) 11 mg/dL 7-23 GLUCOSE (test code = 0405771934) 95 mg/dL 70-110 CREATININE (test code = 1591883319) 0.62 mg/dL 0.50-1.04 CALCIUM (test code = 2387256884) 9.4 mg/dL 8.6-10.6 eGFR (test code = 7045496011) mL/min/1.73m2 VASHTI (test code = VASHTI) Association [...] or urine or abnormalities in imaging tests). [facility] WITH [id number] 16:19:13* Test Item Value Reference Range Interpretation Comme nts WBC (test code = 6690-2) See_Comment [Automated [employer]] The system which generated this result transmitted [...] 32.8 g/dL 31.6-35.1 RDW-SD (test code = 74615-9) 38.5 fL 39.0-49.9 L RDW-CV (test code = 788-0) 12.9 % 12.0-15.5 PLT (test code = 777-3) See_Comment [Automated messa ge] The system which generated this result transmitted reference range: 166 - 358 10*3/?L. The reference range was not used to interpret this result as normal/abnormal. MPV (test code = 72088-1) 10.2 fL 9.5-12.9 NRBC/100 WBC (test code = 4680795676) See_Comment [Automated [employer] ssage] The system which generated this result transmitted reference range: 0.0 - 10.0 /100 WBCs. The reference range was not used to interpret this result as normal/abnormal. NRBC x10^3 (test code = 4103132956) See_Comment [Automated LXSNa ge] The system which generated this result transmitted reference range: 10*3/?L. The reference range was not used to interpret this result as normal/abnormal. GRAN MAT (NEUT) % (test code = 770-8) 54.2 % IMM GRAN % (test code = 2255220544) 0.30 % LYMPH % (test code = 736-9) 39.1 % MONO % (test code = 5905-5) 5.1 % EOS % (test code = 713-8) 1.2 % BASO % (test code = 706-2) 0.1 % GRAN MAT x10^3(ANC) (test code = 0974136933) 3.94 10*3/uL 1.88-7.09 IMM GRAN x10^3 (test code = 5435750661) 0.00-0.06 LYMPH x10^3 (test code = 731-0) 2.84 10*3/uL 1.32-3.29 MONO x10^3 (test code = 742-7) 0.37 10*3/uL 0.33-0.92 EOS x10^3 (test code = 711-2) 0.09 10*3/uL 0.03-0.39 BASO x10^3 (test code = 704-7) 0.01-0.07 Lab Interpretation (test code = 76187-4) Abnormal [facility] [id number] 20:48:00* Test Item Value Reference Range Interpretation Comme nts POCT PREG (test code = 1605) Negative On board controls acceptable with C Line (test code = 3574) Yes POCT PREG LOT # (test code = 3575) POCT PREG TEST DATE ( test code = 3576) [facility] URINALYSIS W SPECIFIC [id number] 22:32:00* Test Item Value Reference Range Interpretation [...] development and interpretation of all internal controls [facility]PO[facility] URINALYS[facility] W SPECIFIC [id number] 22:32:00* Test Item Value Reference Range Interpretation [...] development and interpretation of all internal controls [facility]POCT [id number] 15:36:00* Test Item Value Reference Range Interpretation Comme nts POCT PREG (test code = 1605) Negative On board controls acceptable with C Line (test code = 3574) Yes POCT PREG LOT # (test code = 3575) POCT PREG TEST DATE ( test code = 3576) [facility] Notes Date/Time Note Provider Source 2024-04-11 01:25:30 Pt given printed and verbal discharge instructions regarding self-care for sore throat & headaches, encouraged hydration. Pt verbalized understanding of instructions, pt awake alert oriented, resp reg unlabored, skin w/d, color appropriate for race, moves all ext well,pt encouraged to follow up with pcp. Advised to seek medical attention for new/prolonged/worsening of symptoms. No adverse reaction to meds given in ER noted upon discharge. PIV d'cd, dressing to site, catheter in tact. Awake, alert oriented, resp reg unlabored, skin w/d, pt leaving amb with steady gait, in no apparent distress. Jessika Rivera RN [facility] 2024-04-10 22:36:35 Pt arrived ambulatory without assist. Pt c/o headache that started this morning. Tylenol 500mg this AM, no meds since Melvina Regalado RN [facility] 2024-02-24 14:36:46 Chief Complaint Patient presents with [facility] Exam Molly Arias LVN [facility] 2022-12-05 10:12:02 Formatting of this n ote might be different from the original. Called to speak with [facility] in [place]. They state they did not ever get the prescription. Contacted the patient and she also has not received the prescription. She is requesting they be resent to [facility] in [place]. Re-ordered original prescription and sent to [facility] per patient request. [facility] 2022-12-04 18:01:37 Formatting of this n ote might be different from the original. Thao Lang is a 27 year old female Trinidad from [facility] called stating [facility] are wanting the prescriptions transferred. Please advise azelastine 137 mcg (0.1 %) nasal spray brompheniramine-pseudoephe drine-DM (BROMFED DM) 2-30-10 mg/5 mL syrup fluticasone propionate 50 mcg/actuation nasal spray methylPREDNISolone (MEDROL, KRISTA,) 4 mg tablets [facility] [place], [place] - [address] [place] [address] & Nicholas Ng [address] [facility] [id number] [address] Mcleod [facility]"
[2024-05-17 16:20] LABS: Influenza A Ag Negative; Influenza B Ag Negative; SARS-CoV-2 Antigen Rapid Res Negative (Negative)
--- NOTE | 2024-05-17 16:34 | ER ---
Nurse's Notes [facility] Name: Thao Lang Age: 29 yrs Sex: Female : 1995 Arrival Date: 05/17/2024 Time: 14:49 Bed 12 Private MD: Diagnosis: Bipolar disorder, unspecified Presentation: 05/17 14:56 Chief complaint: EMS states: EMS called by father for erratic behavior, when EMS ph arrived pt was acting normally, denies drug or alcohol use, pt c/o "allergy symptoms". Coronavirus screen: Vaccine status: Patient reports being unvaccinated. Ebola Screen: No symptoms or risks identified at this time. Onset: The symptoms/episode began/occurred at an unknown time. Anaphylaxis evaluation, no signs or symptoms of anaphylaxis were noted. Initial Sepsis Screen: Does the patient meet any 2 criteria? No. Patient's initial sepsis screen is negative. Does the patient have a suspected source of infection? No. Patient's initial sepsis screen is negative. Risk Assessment: Do you want to hurt yourself or someone else? Patient reports no desire to harm self or others. Onset of symptoms was May 17, 2024. 14:56 Method Of Arrival: EMS: [facility] 14:56 Acuity: IZABELLA 4 ph Historical: - Allergies: 15:01 No Known Drug Allergies; ph - PMHx: 15:01 Asthma; ectopic ; ph - PSHx: 15:01 section; D\\T\\C; ph - Immunization history:: Adult Immunizations unknown. - Infectious Disease History:: Denies. - Social history:: Smoking status: Patient denies any tobacco usage or history of. Patient/guardian denies using alcohol, street drugs. Screenin:02 [facility] ED Fall Risk Assessment (Adult) History of falling in the last 3 months, ph including since admission No falls in past 3 months (0 pts) Confusion or Disorientation No (0 pts) Intoxicated or Sedated No (0 pts) Impaired Gait No (0 pts) Mobility Assist Device Used No (0 pt) Altered Elimination No (0 pt) Score/Fall Risk Level 0 - 2 = Low Risk Oriented to surroundings, Maintained a safe environment, Hourly rounding (assess needs \\T\\ fall precautionary measures) done. Abuse screen: Denies threats or abuse. Denies injuries from another. Nutritional screening: No deficits noted. Tuberculosis screening: No symptoms or risk factors identified. Assessment: 15:40 General: Appears in no apparent distress. comfortable, Behavior is calm, cooperative, jb4 appropriate for age. Pain: Denies pain. Neuro: Level of Consciousness is awake, alert, obeys commands, Oriented to person, place, time, situation. Cardiovascular: Patient's skin is warm and dry. Respiratory: Airway is patent Respiratory effort is even, unlabored, Respiratory pattern is regular, symmetrical. Derm: Skin is intact, Skin is pink, warm \\T\\ dry. Musculoskeletal: Circulation, motion, and sensation intact. Range of motion: intact in all extremities. 16:51 Reassessment: Patient appears in no apparent distress at this time. Patient and/or jb4 family updated on plan of care and expected duration. Pain level reassessed. Patient is alert, oriented x 3, equal unlabored respirations, skin warm/dry/pink. Vital Signs: 14:56 BP 108 / 79; Pulse 76; Resp 18; Temp 97.8; Pulse Ox 98% on R/A; ph ED Course: 14:52 Patient arrived in ED. ph 14:52 Amanda Zhao FNP-C is [facility]. kb 14:52 Driss Mckeon MD is Attending Physician. kb 15:01 Triage completed. ph 15:02 Arm band placed on Patient placed in an exam room, on a stretcher. ph 15:40 Patient has correct armband on for positive identification. Bed in low position. Call jb4 light in reach. Side rails up X 1. Provided Education on: plan of care. 15:40 No provider procedures requiring assistance completed. Patient did not have IV access jb4 during this emergency room visit. 15:42 COVID swab sent to lab. Flu and/or RSV swab sent to lab. Strep swab sent to lab. jb4 Administered Medications: No medications were administered Medication: 15:40 VIS not applicable for this client. jb4 Outcome: 16:33 Discharge ordered by . kb 16:51 Discharged to home ambulatory, with family, jb4 16:51 Condition: stable 16:51 Discharge instructions given to patient, family, Instructed on discharge instructions, follow up and referral plans. Demonstrated understanding of instructions, follow-up care, 16:52 Patient left the ED. jb4 Signatures: Amanda Zhao FNP-C MECHANICAL PRODUCT DESIGN ENGINEER-Loreto Gaines, RN RN ph Olegario Shin RN RN jb4 Corrections: (The following items were deleted from the chart) 15:02 14:56 Resp 18bpm; Pulse Ox 98% RA; Temp 97.8F; ph ph
--- NOTE | 2024-05-17 16:34 | EDPHYS ---
Physician Documentation [facility] Name: Thao Lang Age: 29 yrs Sex: Female : 1995 Arrival Date: 05/17/2024 Time: 14:49 Bed 12 Private MD: ED Physician Driss Mckeon HPI: 05/17 16:08 This 29 yrs old Female presents to ER via EMS with complaints of Allergy kb Symptoms. 16:08 Pt is a 29 year old female who was brought in by EMS for reported allergies. Pt states kb she has a sore throat and suffers from allergies all of the time. States she thinks her control is the cause of her allergies. EMS states pt's father called 911 for mental evaluation due to erratic behavior. Pt is calm, cooperative. Father arrived and states he wanted her evaluated because she has been wanted to sit in her room and not talk to him. Pt denies SI or HI, father confirms that she is not a threat to herself or anyone else. . Historical: - Allergies: 15:01 No Known Drug Allergies; ph - PMHx: 15:01 Asthma; ectopic ; ph - PSHx: 15:01 section; D\T\C; ph - Immunization history:: Adult Immunizations unknown. - Infectious Disease History:: Denies. - Social history:: Smoking status: Patient denies any tobacco usage or history of. Patient/guardian denies using alcohol, street drugs. ROS: 16:07 Constitutional: As per HPI kb Exam: 16:07 Constitutional: This is a well developed, well nourished patient who is awake, alert, kb and in no acute distress. Head/Face: Normocephalic, atraumatic. ENT: Moist Mucous membranes Cardiovascular: Regular rate Respiratory: Respirations even and unlabored. No increased work of breathing. Talking in full sentences Abdomen/GI: Soft, non-tender. No distention Skin: Warm, dry with normal turgor. Normal color. MS/ Extremity: Pulses equal, no cyanosis. Neurovascular intact. Full, normal range of motion. Neuro: Awake and alert, GCS 15, oriented to person, place, time, and situation. Vital Signs: 14:56 BP 108 / 79; Pulse 76; Resp 18; Temp 97.8; Pulse Ox 98% on R/A; ph MDM: 14:52 Medical Screening Exam initiated kb 16:08 Data reviewed: vital signs, nurses notes. kb 16:10 Differential diagnosis: flu, covid, strep, allergies, bipolar. Test considered but Not kb performed: Labs: toxic workup considered but pt is a\T\ox4 without SI or HI. Father has an appt scheduled with a counselor and psychiatrist the first week of May and will keep those appts. . Historians other than the Patient: EMS: [facility]. Family Member: father. 16:33 Counseling: I had a detailed discussion with the patient and/or guardian regarding the kb historical points, exam findings, and any diagnostic results supporting the discharge/admit diagnosis, lab results, the need for outpatient follow up, a family practitioner, to return to the emergency department if symptoms worsen or persist or if there are any questions or concerns that arise at home. 05/17 15:53 Order name: Group A Streptococcus Rapid Sc; Complete Time: 16:26 EDNV 05/17 15:53 Order name: COVID-19 Ag + Flu A+B Ag; Complete Time: 16:26 EDMS 05/17 16:19 Order name: Throat Culture EDNV Administered Medications: No medications were administered Disposition: 05/18 12:38 Co-signature as Attending Physician, Driss Mckeon MD I agree with the assessment and leena plan of care. Disposition Summary: 05/17/24 16:33 Discharge Ordered Notes: Location: Home kb Condition: Stable kb Diagnosis - Bipolar disorder, unspecified kb Followup: kb - With: Emergency Department - When: As needed - Reason: Worsening of condition Followup: kb - With: Private Physician - When: 2 - 3 days - Reason: Recheck today's complaints, Continuance of care, Re-evaluation by your physician Discharge Instructions: - Discharge Summary Sheet kb - Managing Bipolar Disorder kb Forms: - Medication Reconciliation Form kb - Antibiotic Education kb - Prescription Opioid Use kb - Patient Portal Instructions kb - Leadership Thank You Letter kb Signatures: Dispatcher [employer] Amanda Trevino, PHARMACIST HELPER-C PHARMACIST HELPER-Driss Davalos MD MD cha Hall, Patricia, RN RN ph Corrections: (The following items were deleted from the chart) 05/17 14:53 14:53 Influenza Screen (A \T\ B)+BA.LAB.BRZ ordered. [facility] 1453 14:53 Group A Streptococcus Rapid Sc+BA.LAB.BRZ ordered. EDMS EDMS 14 14:53 SARS-COV-2 Antigen Rapid+I.LAB.BRZ ordered. EDMS EDMS 15:53 15:52 Group A Streptococcus Rapid Sc ordered. EDMS EDMS
[2024-05-17 17:01] VITALS: BP 108/79; TEMP 97.8; O2SAT 98
== END 2024-05-17 16:52 | disposition home or self-care (01) ==
LOC: ER 14:49
DX: F31.9 Bipolar disorder, unspecified (principal); R07.0 Pain in throat; Z11.52 Encounter for screening for COVID-19
CPT/HCPCS: 36415; 87070; 87428; 99283

== ENCOUNTER 2024-06-16 11:04 | Emergency (ER) | payer OTHER ==
--- OUTSIDE RECORDS SUMMARY | 2024-06-16 11:13 | XMS REPORT | Continuity of Care Document ---
Author Name Unknown Address [address] [facility] [place] [address] [facility] [place] Address [address] [facility] [place] [address] Care Team Providers Care Heel Seater Name Role Phone ESTEVAN ADAMS Primary Care Physician OZZIE Mendez Attending Clinician Unavailab BRADEN Torres Attending Clinician Unavailable FRANKIE DIETZ Attending Clinician Unavailable MD RIKI Attending Clinician Unavailab ESTEVAN Reyes Attending Clinician Unavail able PRESLEY MUNOZ Attending Clinician Unavailable TISH LOCKWOOD Attending Clinician Unavailable JEB DAVIS Attending Clinician Unavailable YAN POPE Attending Clinician Unavailable CARMINE MONROE Attending Clinician Unavailable CARMINE MONROE Attending Clinician Unavailable Carmine Marcial Attending Clinician [phone] MARILOU JARAMILLO Attending Clinician Unavailable OMKAR HOU Attending Clinician OMKAR Bender Attending Clinician JULISSA Marti Attending Clinician Unavailable JENNIFER PURI Attending Clinician Unavaila lisa GC_GCBZW_Cary_S Attending Clinician Unavaila Estevan Villalobos Attending Clinician + Burton MARC, Jessika Attending Clinician [phone] JESSIKA MANRIQUE Attending Clinician Unavailable Unknown, Attending Attending Clinician Unavailab jaime Puri CNM, Jennifer Malik Attending Clinician [phone] Doctor Unassigned, [place] Attending Clinician U meggandixonSIRIA Tse Attending Clinician Unavailab TIANA Argueta Attending Clinician Unavailable Tiana Antonio MD Attending Clinician [phone] Visit, [facility] Nurse Attending Clinician Unava ilpetar Martinez LEAFLET DISTRIBUTOR, Siria Stokes Attending Clinician [phone] Maisha West RN Attending Clinician Unavailable EASTON RIOJAS Attending Clinician Unavailable Nurse, [facility] Exp Cprit Obgyn Attending Clini luis felipe Unavailable JODEE ALMAZAN Attending Clinician Unavailable Jodee Almazan MD Attending Clinician [phone] Zbigniew Fernandez MD Attending Clinician + [phone] Glen Mcgraw MD Attending Clinician [phone] Leonel Mason MD Attending Clinician [phone] Ultrasound, [facility] Attending Clinician UnavailKatelyn Mullen MD Attending Clinician [phone] KATELYN CRUZ Attending Clinician Unavailable KATELYN CRUZ Attending Clinician Unavailable [facility] Attending Clinician Unavailable [facility], Aaron Strong Attending Clinician + AARON ALICEA Attending Clinician Unavail able Provider, [facility] Temp Attending Clinician Dalila Silvana Whitehead MD Attending Clinician [phone] SILVANA VENEGAS Attending Clinician Unavailable SILVANA VENEGAS Attending Clinician Unavailable Bo Hernandez Attending Clinician [phone] BO RIVERA Attending Clinician UnavailAracely RAMÍREZP, Nguyễn Attending Clinician [phone] AMAYA PEÑA Attending Clinician Unavailable Casey SHARMA, Amaya Attending Clinician [phone] Palmira Phillips Attending Clinician Unavailyahaira Escoto MD, Yair Borjas Attending Clinician Sherman MARC, Gianni Chou Attending Clinician Robbie Wolfe MD, Cristin Attending Clinician + Leny MARC, Julissa Nunez Attending Clinician Reji Cruz DO Attending Clinician Seth LEAFLET DISTRIBUTOR, Emma Attending Clinician [phone] Tre MARC, Zoe Stinson Attending Clinician [phone] Provider, [facility] Attending Clinician Un available Bony SHARMA, Saadia Attending Clinician SAADIA LOVETT Attending Clinician Unavailable Omar LEAFLET DISTRIBUTOR, Delano Attending Clinician DELANO NELSON Attending Clinician UnavailYOVANY Barnhart Attending Clinician Unavailable JAIME CLEMENT Attending Clinician Unavailable GC_GCBZW_Kareji_S Admitting Clinician UnavailJODEE León Admitting Clinician Unavailable Tha MARC, Jodee Suarez Admitting Clinician [phone] Leny MARC, Julissa Nunez Admitting Clinician Payers Payer Name Policy Type Policy Number Effective Date Expirati on Date Source [employer] [place] [employer] [id number] 2016 00:00:00 [facility] AMANDA GILMORE COPAY FOCUS 9 [id number] 2024 00:00:00 [facility] [place]/ YING MARTINEZ [id number] 2024 00:00:00 [facility] CHAVO STAR [id number] 2024 00:00:00 2025 00:00:00 [employer] OON Exchange [id number] 2024 00:00:00 [place] [facility] STAR [id number] 2022 00:00:00 MEDICAID PENDING PENDING 2020 00:00:00 Problems Condition Name Condition Details Condition Category Status Onset Date Resolution Date Last Treatment Date Treating Clinician Comments Source Presence of intrauteri ne contracept yamila device Presence of intrauteri ne contracept yamila device Disease Active 10-04 00:00: 00 [facility] History of abnormal cervical Pap smear History of abnormal cervical Pap smear Disease Active 10-04 00:00: 00 Overview: Formattin g of this note might be different from the original. 09/2020 LGSIL [facility] Upper respirator y symptom Upper respirator y symptom Disease Active 1-18 00:00: 00 [facility] Anemia of mother in , antepartum Anemia of mother in , antepartum Disease Active 2020-03 2-16 00:00: 00 [facility] Morbid obesity Morbid obesity Disease Active 1-06 00:00: 00 [facility] Folliculit is Folliculit is Disease Resolve d 4-12 00:00: 00 2022-10-04 00:00:00 2022-10-04 08:51:23 [facility] Flu vaccine need Flu vaccine need Disease Resolve d 3-30 00:00: 00 2022-10-04 00:00:00 2022-10-04 08:51:25 [facility] Vaginal lesion Vaginal lesion Disease Resolve d 3-30 00:00: 00 2022-10-04 00:00:00 2022-10-04 08:51:39 [facility] Elevated blood-pres sure reading, without diagnosis of hypertensi on Elevated blood-pres sure reading, without diagnosis of hypertensi on Disease Resolve d 2-15 00:00: 00 2022-10-04 00:00:00 2022-10-04 08:51:26 [facility] COVID COVID Disease Resolve d 2-01 00:00: 00 2022-10-04 00:00:00 2022-10-04 08:51:27 [facility] Upper respirator y symptom Upper respirator y symptom Disease Resolve d 1-18 00:00: 00 2022-10-04 00:00:00 2022-10-04 08:51:28 [facility] Abnormal glandular Papanicola ou smear of cervix Abnormal glandular Papanicola ou smear of cervix Disease Resolve d 8-04 00:00: 00 2022-10-04 00:00:00 2022-10-04 08:51:32 Overview: Formattin g of this note might be different from the original. LGSIL on 2020 pap smear, needs repeat in 12 months [facility] BMI 45.0-49.9, adult BMI 45.0-49.9, adult Disease Resolve d 7-19 00:00: 00 2022-10-04 00:00:00 2022-10-04 08:51:37 [facility] Screening examinatio n for STD (sexually transmitte d disease) Screening examinatio n for STD (sexually transmitte d disease) Disease Resolve d 2-16 00:00: 00 2022-10-04 00:00:00 2022-10-04 08:51:30 [facility] Research study patient Research study patient Disease Resolve d 2-16 00:00: 00 2022-04-19 00:00:00 2022-04-19 10:06:25 Overview: Formattin g of this note might be different from the original. PACT (fellow) [facility] GBS (group B Streptococ cus carrier), +RV culture, currently GBS (group B Streptococ cus carrier), +RV culture, currently Disease Resolve d 1-27 00:00: 00 2022-04-19 00:00:00 2022-04-19 10:06:35 Overview: Formattin g of this note might be different from the original. Address in labor and delivery. [facility] Anemia of mother in , antepartum Anemia of mother in , antepartum Disease Resolve d 2020-03 2-16 00:00: 00 2022-04-19 00:00:00 2022-04-19 10:06:42 [facility] Abnormal quad screen Abnormal quad screen Disease Resolve d 2020-03 2-16 00:00: 00 2022-04-19 00:00:00 2022-04-19 10:06:43 [facility] Supervisio n of high risk in third trimester Supervisio n of high risk in third trimester Disease Resolve d 2020-0 7-19 00:00: 00 2022-04-19 00:00:00 2022-04-19 10:06:21 [facility] SAB (spontaneo us ) SAB (spontaneo us ) Disease Resolve d 2020-0 7-19 00:00: 00 2022-04-19 00:00:00 2022-04-19 10:06:23 [facility] in first trimester with history of ectopic in first trimester with history of ectopic Disease Resolve d 2020-0 7-19 00:00: 00 2022-04-19 00:00:00 2022-04-19 10:06:27 [facility] Primigravi da in third trimester Primigravi da in third trimester Disease Resolve d 0 7-19 00:00: 00 2022-04-19 00:00:00 2022-04-19 10:06:29 [facility] History of ectopic History of ectopic Disease Resolve d 2020-0 4-02 00:00: 00 2022-04-19 00:00:00 2022-04-19 10:06:32 [facility] 39 weeks gestation of 39 weeks gestation of Disease Resolve d 2021-0 2-15 00:00: 00 2021-05-17 00:00:00 2021-05-17 08:21:48 [facility] Ectopic without intrauteri ne Ectopic without intrauteri ne Disease Resolve d 2020-0 3-17 00:00: 00 2020-06-24 00:00:00 2020-06-24 11:40:20 [facility] Nexplanon removal Nexplanon removal Disease Resolve d 2016-0 2-16 00:00: 00 2020-06-08 00:00:00 2021-10-08 00:44:25 [facility] Rubella immune Rubella immune Disease Resolve d 2013-0 1-24 00:00: 00 2016-05-10 00:00:00 2016-05-10 13:46:23 [facility] Insertion of implantabl e subdermal contracept yamila Insertion of implantabl e subdermal contracept yamila Disease Resolve d 04-17 00:00: 00 2016-05-10 00:00:00 2021-10-08 00:28:34 [facility] Anemia Anemia Disease Resolve d 04-01 00:00: 00 2016-05-10 00:00:00 2021-10-08 00:28:17 [facility] Encounter for routine gynecologi curtis examinatio n Encounter for routine gynecologi curtis examinatio n Disease Resolve d 03-30 00:00: 00 2016-05-10 00:00:00 2021-10-08 00:28:16 [facility] Allergies, Adverse Reactions, Alerts Allergy Name Allergy Type Status Severity Reaction(s) Onset Date Inactive Date Treating Clinician Comments Source NO KNOWN ALLERGIE S Drug Class Active [facility] Social History Social Habit Start Date Stop Date Quantity Comments Source ASSERTION Not [facility] - External Sexual orientation K [place]illo [facility] - External History SDOH Alcohol Frequency [facility] History SDOH Alcohol Std Drinks [facility] History SDOH Alcohol Binge [facility] Gender identity [facility] Alcoholic beverage intake 2024-04-11 00:00:00 2024-04-11 00:00:00 Current drinker of alcohol (finding) [facility] History of Social function 2024-02-24 00:00:00 2024-02-24 00:00:00 [facility] - External Alcohol Comment 2024-02-24 00:00:00 2024-02-24 00:00:00 occasionally [facility] - External Alcohol intake 2022-12-02 00:00:00 2022-12-02 00:00:00 Current drinker of alcohol (finding) [facility] Exposure to SARS-CoV-2 (event) 2022-04-20 00:00:00 2022-04-30 10:31:00 Not sure [facility] Tobacco use and exposure 2021-12-06 00:00:00 2021-12-06 00:00:00 Smokeless tobacco non-user [facility] Sex 2021-07-03 01:43:03 2021-07-03 01:43:03 Female (finding) [facility] - External Sex assigned at 1995 00:00:00 1995 00:00:00 [facility] - External Smoking Status Start Date Stop Date Source Never smoked tobacco [facility] Medications Ordered Medication Name Filled Medication Name Start Date Stop Date Current Medication? Ordering Clinician Indication Dosage Frequency Signature (SIG) Comments Components Source NaCl 0.9% (NS) IV infusion 1,000 mL 04-11 06:45: 00 04-11 06:05 :01 No 1000mL at 999 mL/hr, Intravenou s, ONCE, 1 dose, On 04/11/24 at 0045, Routine [facility] butalbital- acetaminoph en-caff (ESGIC) 50-325-40 mg tablet 1 tablet 04-11 05:45: 00 04-11 06:06 :00 No 1{tbl} 1 tablet, Oral, ONCE, 1 dose, [facility] Sat04/10/24 [facility] 2345[facility] 30 mg 04-11 05:37: 00 04-11 06:06 :00 No 30mg 30 mg, Slow IV Push, ONCE, 1 dose, On Sat04/10/24 at 2345, ISAAK [facility] Metronidazo le (Flagyl) 500 MG oral Tablet 2023-03 2-05 00:00: 00 Yes [id number] 500mg Q.5D Take 1 tablet (500 mg total) by mouth 2 times daily. [facility] - Externa l azelastine 137 mcg (0.1 %) nasal spray 12-05 00:00: 00 Yes [id number] 1{spray } Use 1 Huggins in each nostril in the morning and 1 Huggins in the evening. Use in each nostril as directed [facility] bromphenira mine-pseudo ephedrine-D M (BROMFED DM) 2-30-10 mg/5 mL syrup 12-05 00:00: 00 Yes [id number] 10mL Take 10 mL by mouth 4 (four) times daily as needed for Congestion /Allergies , Cough or Cold symptoms. [facility] fluticasone propionate 50 mcg/actuati on nasal spray 12-05 00:00: 00 Yes [id number] 1{spray } Use 1 Huggins in each nostril in the morning. [facility] methylPREDN ISolone (MEDROL, KRISTA,) 4 mg tablets 12-05 00:00: 00 Yes [id number] Take by mouth SEE-INSTRU CTIONS. follow package directions [facility] bromphenira mine-pseudo ephedrine-D M (BROMFED DM) 2-30-10 mg/5 mL syrup 12-02 00:00: 00 Yes [id number] 10mL Take 10 mL by mouth 4 (four) times daily as needed for Congestion /Allergies , Cough or Cold symptoms. [facility] azelastine 137 mcg (0.1 %) nasal spray 12-02 00:00: 00 Yes [id number] 1{spray } Use 1 Huggins in each nostril in the morning and 1 Huggins in the evening. Use in each nostril as directed [facility] fluticasone propionate 50 mcg/actuati on nasal spray 12-02 00:00: 00 Yes [id number] 1{spray } Use 1 Huggins in each nostril in the morning. [facility] methylPREDN ISolone (MEDROL, KRISTA,) 4 mg tablets 12-02 00:00: 00 Yes [id number] Take by mouth SEE-INSTRU CTIONS. follow package directions [facility] metroNIDAZO LE 500 mg tablet 10-04 00:00: 00 10-05 04:59 :00 No [id number] 2000mg Take 4 tablets by mouth once now for 1 dose. [facility] copper (PARAGARD T 380A) IUD 1 Intra Uterine Device 04-30 17:45: 00 04-30 17:01 :00 No [id number] 1{IUD} [facility] amoxicillin -clavulanat e (AUGMENTIN) 875-125 mg per tablet 2021-03 00:00: 00 02-01 05:59 :00 No [id number] 1{tbl} Take 1 tablet by mouth in the morning and 1 tablet in the evening. Do all this for 7 days. [facility] phenazopyri dine 100 mg tablet 2021-03 00:00: 00 01-27 04:59 :00 No [id number] 200mg Take 2 tablets by mouth in the morning and 2 tablets at noon and 2 tablets in the evening. Do all this for 2 days. [facility] levonorgest rel-ethinyl estradiol (SRONYX) 0.1-20 mg-mcg per tablet 9-14 00:00: 00 10-02 00:00 :00 No [id number] 1{tbl} Take 1 tablet by mouth in the morning. [facility] ondansetron 4 mg disintegrat ing tablet 4-11 00:00: 00 10-02 00:00 :00 No [id number] 4mg Take 1 tablet by mouth every 8 (eight) hours as needed for Nausea and Vomiting (N/V). [facility] norethindro ne 0.35 mg tablet 3-30 00:00: 00 10-02 00:00 :00 No [id number] 1{tbl} Take 1 tablet by mouth daily. [facility] Immunizations Ordered Immunization Name Filled Immunization Name Date Status Comments Source TD, NOS 2023-01-18 00:00:00 Completed [facility] SARS-COV-2 COVID-19 MAURICIO/J&J VACCINE 2023-01-18 00:00:00 Completed [facility] TDAP 2023-01-18 00:00:00 Completed [facility] HPV 2023-01-18 00:00:00 Completed [facility] HPV9 2023-01-18 00:00:00 Completed [facility] DTaP, Unspecified Formulation 2023-01-18 00:00:00 Completed [facility] DPT/HIB 2023-01-18 00:00:00 Completed [facility] HEPATITIS A 2023-01-18 00:00:00 Completed [facility] Hep B, Unspecified Formulation 2023-01-18 00:00:00 Completed [facility] Meningococcal Polysaccharide (groups A, C, Y and W-135) conjugate vaccine (MCV4P) 2023-01-18 00:00:00 Completed [facility] MMR 2023-01-18 00:00:00 Completed [facility] IPV 2023-01-18 00:00:00 Completed [facility] Poliovirus, Live, Oral, Trivalent 2023-01-18 00:00:00 Completed [facility] TD, NOS 2021-07-03 00:00:00 Completed [facility] SARS-COV-2 COVID-19 MAURICIO/J&J VACCINE 2021-07-03 00:00:00 Completed [facility] TDAP 2021-07-03 00:00:00 Completed [facility] HPV 2021-07-03 00:00:00 Completed [facility] HPV9 2021-07-03 00:00:00 Completed [facility] DTaP, Unspecified Formulation 2021-07-03 00:00:00 Completed [facility] DPT/HIB 2021-07-03 00:00:00 Completed [facility] HEPATITIS A 2021-07-03 00:00:00 Completed [facility] Hep B, Unspecified Formulation 2021-07-03 00:00:00 Completed [facility] Meningococcal Polysaccharide (groups A, C, Y and W-135) conjugate vaccine (MCV4P) 2021-07-03 00:00:00 Completed [facility] MMR 2021-07-03 00:00:00 Completed [facility] IPV 2021-07-03 00:00:00 Completed [facility] Poliovirus, Live, Oral, Trivalent 2021-07-03 00:00:00 Completed [facility] TD, NOS 2021-05-29 00:00:00 Completed [facility] SARS-COV-2 COVID-19 MAURICIO/J&J VACCINE 2021-05-29 00:00:00 Completed [facility] TDAP 2021-05-29 00:00:00 Completed [facility] HPV 2021-05-29 00:00:00 Completed [facility] HPV9 2021-05-29 00:00:00 Completed [facility] DTaP, Unspecified Formulation 2021-05-29 00:00:00 Completed [facility] DPT/HIB 2021-05-29 00:00:00 Completed [facility] HEPATITIS A 2021-05-29 00:00:00 Completed [facility] Hep B, Unspecified Formulation 2021-05-29 00:00:00 Completed [facility] Meningococcal Polysaccharide (groups A, C, Y and W-135) conjugate vaccine (MCV4P) 2021-05-29 00:00:00 Completed [facility] MMR 2021-05-29 00:00:00 Completed [facility] IPV 2021-05-29 00:00:00 Completed [facility] Poliovirus, Live, Oral, Trivalent 2021-05-29 00:00:00 Completed [facility] HPV9 2021-05-17 00:00:00 Completed [facility] HPV9 2021-05-17 00:00:00 Completed [facility] HPV9 2021-05-17 00:00:00 Completed [facility] HPV9 2021-05-17 00:00:00 Completed [facility] HPV9 2021-05-17 00:00:00 Completed [facility] HPV9 2021-05-17 00:00:00 Completed [facility] HPV9 2021-05-17 00:00:00 Completed [facility] HPV9 2021-05-17 00:00:00 Completed [facility] HPV9 2021-05-17 00:00:00 Completed [facility] HPV9 2021-05-17 00:00:00 Completed [facility] HPV9 2021-05-17 00:00:00 Completed [facility] HPV9 2021-05-17 00:00:00 Completed [facility] HPV9 2021-05-17 00:00:00 Completed [facility] HPV9 2021-05-17 00:00:00 Completed [facility] HPV9 2021-05-17 00:00:00 Completed [facility] HPV9 2021-05-17 00:00:00 Completed [facility] HPV9 2021-05-17 00:00:00 Completed [facility] HPV9 2021-05-17 00:00:00 Completed [facility] HPV9 2021-05-17 00:00:00 Completed [facility] HPV9 2021-05-17 00:00:00 Completed [facility] HPV9 2021-05-17 00:00:00 Completed [facility] TD, NOS 2021-03-15 00:00:00 Completed [facility] SARS-COV-2 COVID-19 MAURICIO/J&J VACCINE 2021-03-15 00:00:00 Completed [facility] TDAP 2021-03-15 00:00:00 Completed [facility] HPV 2021-03-15 00:00:00 Completed [facility] DTaP, Unspecified Formulation 2021-03-15 00:00:00 Completed [facility] DPT/HIB 2021-03-15 00:00:00 Completed [facility] HEPATITIS A 2021-03-15 00:00:00 Completed [facility] Hep B, Unspecified Formulation 2021-03-15 00:00:00 Completed [facility] Meningococcal Polysaccharide (groups A, C, Y and W-135) conjugate vaccine (MCV4P) 2021-03-15 00:00:00 Completed [facility] MMR 2021-03-15 00:00:00 Completed [facility] IPV 2021-03-15 00:00:00 Completed [facility] Poliovirus, Live, Oral, Trivalent 2021-03-15 00:00:00 Completed [facility] TDAP 2021-02-22 00:00:00 Completed [facility] TDAP 2021-02-22 00:00:00 Completed [facility] TDAP 2021-02-22 00:00:00 Completed [facility] TDAP 2021-02-22 00:00:00 Completed [facility] TDAP 2021-02-22 00:00:00 Completed [facility] TDAP 2021-02-22 00:00:00 Completed [facility] TDAP 2021-02-22 00:00:00 Completed [facility] TDAP 2021-02-22 00:00:00 Completed [facility] TDAP 2021-02-22 00:00:00 Completed [facility] TDAP 2021-02-22 00:00:00 Completed [facility] TDAP 2021-02-22 00:00:00 Completed [facility] TDAP 2021-02-22 00:00:00 Completed [facility] TDAP 2021-02-22 00:00:00 Completed [facility] TDAP 2021-02-22 00:00:00 Completed [facility] TDAP 2021-02-22 00:00:00 Completed [facility] TDAP 2021-02-22 00:00:00 Completed [facility] TDAP 2021-02-22 00:00:00 Completed [facility] TDAP 2021-02-22 00:00:00 Completed [facility] TDAP 2021-02-22 00:00:00 Completed [facility] TDAP 2021-02-22 00:00:00 Completed [facility] TDAP 2021-02-22 00:00:00 Completed [facility] TD, NOS 2020-10-27 00:00:00 Completed [facility] SARS-COV-2 COVID-19 MAURICIO/J&J VACCINE 2020-10-27 00:00:00 Completed [facility] HPV 2020-10-27 00:00:00 Completed [facility] DTaP, Unspecified Formulation 2020-10-27 00:00:00 Completed [facility] DPT/HIB 2020-10-27 00:00:00 Completed [facility] HEPATITIS A 2020-10-27 00:00:00 Completed [facility] Hep B, Unspecified Formulation 2020-10-27 00:00:00 Completed [facility] Meningococcal Polysaccharide (groups A, C, Y and W-135) conjugate vaccine (MCV4P) 2020-10-27 00:00:00 Completed [facility] MMR 2020-10-27 00:00:00 Completed [facility] IPV 2020-10-27 00:00:00 Completed [facility] Poliovirus, Live, Oral, Trivalent 2020-10-27 00:00:00 Completed [facility] TDAP 2020-10-27 00:00:00 Completed [facility] SARS-COV-2 COVID-19 MAURICIO/J&J VACCINE 2020-07-26 00:00:00 Completed [facility] SARS-COV-2 COVID-19 MAURICIO/J&J VACCINE 2020-07-26 00:00:00 Completed [facility] SARS-COV-2 COVID-19 MAURICIO/J&J VACCINE 2020-07-26 00:00:00 Completed [facility] SARS-COV-2 COVID-19 MAURICIO/J&J VACCINE 2020-07-26 00:00:00 Completed [facility] SARS-COV-2 COVID-19 MAURICIO/J&J VACCINE 2020-07-26 00:00:00 Completed [facility] SARS-COV-2 COVID-19 MAURICIO/J&J VACCINE 2020-07-26 00:00:00 Completed [facility] SARS-COV-2 COVID-19 MAURICIO/J&J VACCINE 2020-07-26 00:00:00 Completed [facility] SARS-COV-2 COVID-19 MAURICIO/J&J VACCINE 2020-07-26 00:00:00 Completed [facility] SARS-COV-2 COVID-19 MAURICIO/J&J VACCINE 2020-07-26 00:00:00 Completed [facility] SARS-COV-2 COVID-19 MAURICIO/J&J VACCINE 2020-07-26 00:00:00 Completed [facility] SARS-COV-2 COVID-19 MAURICIO/J&J VACCINE 2020-07-26 00:00:00 Completed [facility] SARS-COV-2 COVID-19 MAURICIO/J&J VACCINE 2020-07-26 00:00:00 Completed [facility] SARS-COV-2 COVID-19 MAURICIO/J&J VACCINE 2020-07-26 00:00:00 Completed [facility] SARS-COV-2 COVID-19 MAURICIO/J&J VACCINE 2020-07-26 00:00:00 Completed [facility] SARS-COV-2 COVID-19 MAURICIO/J&J VACCINE 2020-07-26 00:00:00 Completed [facility] SARS-COV-2 COVID-19 MAURICIO/J&J VACCINE 2020-07-26 00:00:00 Completed [facility] SARS-COV-2 COVID-19 MAURICIO/J&J VACCINE 2020-07-26 00:00:00 Completed [facility] SARS-COV-2 COVID-19 MAURICIO/J&J VACCINE 2020-07-26 00:00:00 Completed [facility] SARS-COV-2 COVID-19 MAURICIO/J&J VACCINE 2020-07-26 00:00:00 Completed [facility] SARS-COV-2 COVID-19 MAURICIO/J&J VACCINE 2020-07-26 00:00:00 Completed [facility] SARS-COV-2 COVID-19 MAURICIO/J&J VACCINE 2020-07-26 00:00:00 Completed [facility] HPV 2013-11-11 00:00:00 Completed [facility] HPV 2013-11-11 00:00:00 Completed [facility] HPV 2013-11-11 00:00:00 Completed [facility] HPV 2013-11-11 00:00:00 Completed [facility] HPV 2013-11-11 00:00:00 Completed [facility] HPV 2013-11-11 00:00:00 Completed [facility] HPV 2013-11-11 00:00:00 Completed [facility] HPV 2013-11-11 00:00:00 Completed [facility] HPV 2013-11-11 00:00:00 Completed [facility] HPV 2013-11-11 00:00:00 Completed [facility] HPV 2013-11-11 00:00:00 Completed [facility] HPV 2013-11-11 00:00:00 Completed [facility] HPV 2013-11-11 00:00:00 Completed [facility] HPV 2013-11-11 00:00:00 Completed [facility] HPV 2013-11-11 00:00:00 Completed [facility] HPV 2013-11-11 00:00:00 Completed [facility] HPV 2013-11-11 00:00:00 Completed [facility] HPV 2013-11-11 00:00:00 Completed [facility] HPV 2013-11-11 00:00:00 Completed [facility] HPV 2013-11-11 00:00:00 Completed [facility] HPV 2013-11-11 00:00:00 Completed HPV 2013-09-11 00:00:00 Completed [facility] HPV 2013-09-11 00:00:00 Completed [facility] HPV 2013-09-11 00:00:00 Completed [facility] HPV 2013-09-11 00:00:00 Completed [facility] HPV 2013-09-11 00:00:00 Completed [facility] HPV 2013-09-11 00:00:00 Completed [facility] HPV 2013-09-11 00:00:00 Completed [facility] HPV 2013-09-11 00:00:00 Completed [facility] HPV 2013-09-11 00:00:00 Completed [facility] HPV 2013-09-11 00:00:00 Completed [facility] HPV 2013-09-11 00:00:00 Completed [facility] HPV 2013-09-11 00:00:00 Completed [facility] HPV 2013-09-11 00:00:00 Completed [facility] HPV 2013-09-11 00:00:00 Completed [facility] HPV 2013-09-11 00:00:00 Completed [facility] HPV 2013-09-11 00:00:00 Completed [facility] HPV 2013-09-11 00:00:00 Completed [facility] HPV 2013-09-11 00:00:00 Completed [facility] HPV 2013-09-11 00:00:00 Completed [facility] HPV 2013-09-11 00:00:00 Completed [facility] HPV 2013-09-11 00:00:00 Completed [facility] HPV 2013-05-10 00:00:00 Completed [facility] HPV 2013-05-10 00:00:00 Completed [facility] HPV 2013-05-10 00:00:00 Completed [facility] HPV 2013-05-10 00:00:00 Completed [facility] HPV 2013-05-10 00:00:00 Completed [facility] HPV 2013-05-10 00:00:00 Completed [facility] HPV 2013-05-10 00:00:00 Completed [facility] HPV 2013-05-10 00:00:00 Completed [facility] HPV 2013-05-10 00:00:00 Completed [facility] HPV 2013-05-10 00:00:00 Completed [facility] HPV 2013-05-10 00:00:00 Completed [facility] HPV 2013-05-10 00:00:00 Completed [facility] HPV 2013-05-10 00:00:00 Completed [facility] HPV 2013-05-10 00:00:00 Completed [facility] HPV 2013-05-10 00:00:00 Completed [facility] HPV 2013-05-10 00:00:00 Completed [facility] HPV 2013-05-10 00:00:00 Completed [facility] HPV 2013-05-10 00:00:00 Completed [facility] HPV 2013-05-10 00:00:00 Completed [facility] HPV 2013-05-10 00:00:00 Completed [facility] HPV 2013-05-10 00:00:00 Completed Meningococcal Polysaccharide (groups A, C, Y and W-135) conjugate vaccine (MCV4P) 2012-10-16 00:00:00 Completed [facility] Meningococcal Polysaccharide (groups A, C, Y and W-135) conjugate vaccine (MCV4P) 2012-10-16 00:00:00 Completed [facility] Meningococcal Polysaccharide (groups A, C, Y and W-135) conjugate vaccine (MCV4P) 2012-10-16 00:00:00 Completed [facility] Meningococcal Polysaccharide (groups A, C, Y and W-135) conjugate vaccine (MCV4P) 2012-10-16 00:00:00 Completed [facility] Meningococcal Polysaccharide (groups A, C, Y and W-135) conjugate vaccine (MCV4P) 2012-10-16 00:00:00 Completed Td 2010-10-28 00:00:00 Completed [facility] Td 2010-10-28 00:00:00 Completed [facility] Td 2010-10-28 00:00:00 Completed [facility] Td 2010-10-28 00:00:00 Completed [facility] Td 2010-10-28 00:00:00 Completed [facility] Td 2010-10-28 00:00:00 Completed [facility] Td 2010-10-28 00:00:00 Completed [facility] Td 2010-10-28 00:00:00 Completed [facility] Td 2010-10-28 00:00:00 Completed [facility] Td 2010-10-28 00:00:00 Completed [facility] Td 2010-10-28 00:00:00 Completed [facility] TD, NOS 2010-10-28 00:00:00 Completed [facility] TD, NOS 2010-10-28 00:00:00 Completed [facility] TD, NOS 2010-10-28 00:00:00 Completed [facility] TD, NOS 2010-10-28 00:00:00 Completed [facility] TD, NOS 2010-10-28 00:00:00 Completed [facility] TD, NOS 2010-10-28 00:00:00 Completed [facility] TD, NOS 2010-10-28 00:00:00 Completed [facility] TD, NOS 2010-10-28 00:00:00 Completed [facility] TD, NOS 2010-10-28 00:00:00 Completed [facility] TD, NOS 2010-10-28 00:00:00 Completed [facility] HEPATITIS A 2009-09-16 00:00:00 Completed [facility] HEPATITIS A 2009-09-16 00:00:00 Completed [facility] HEPATITIS A 2009-09-16 00:00:00 Completed [facility] HEPATITIS A 2009-09-16 00:00:00 Completed [facility] HEPATITIS A 2009-09-16 00:00:00 Completed HEPATITIS A 2008-07-28 00:00:00 Completed [facility] Meningococcal Polysaccharide (groups A, C, Y and W-135) conjugate vaccine (MCV4P) 2008-07-28 00:00:00 Completed [facility] MMR 2008-07-28 00:00:00 Completed [facility] TDAP 2008-07-28 00:00:00 Completed [facility] HEPATITIS A 2008-07-28 00:00:00 Completed [facility] Meningococcal Polysaccharide (groups A, C, Y and W-135) conjugate vaccine (MCV4P) 2008-07-28 00:00:00 Completed [facility] MMR 2008-07-28 00:00:00 Completed [facility] TDAP 2008-07-28 00:00:00 Completed [facility] HEPATITIS A 2008-07-28 00:00:00 Completed [facility] Meningococcal Polysaccharide (groups A, C, Y and W-135) conjugate vaccine (MCV4P) 2008-07-28 00:00:00 Completed [facility] MMR 2008-07-28 00:00:00 Completed [facility] TDAP 2008-07-28 00:00:00 Completed [facility] HEPATITIS A 2008-07-28 00:00:00 Completed [facility] Meningococcal Polysaccharide (groups A, C, Y and W-135) conjugate vaccine (MCV4P) 2008-07-28 00:00:00 Completed [facility] MMR 2008-07-28 00:00:00 Completed [facility] TDAP 2008-07-28 00:00:00 Completed [facility] HEPATITIS A 2008-07-28 00:00:00 Completed Meningococcal Polysaccharide (groups A, C, Y and W-135) conjugate vaccine (MCV4P) 2008-07-28 00:00:00 Completed MMR 2008-07-28 00:00:00 Completed TDAP 2008-07-28 00:00:00 Completed DTaP, Unspecified Formulation 2002-04-01 00:00:00 Completed [facility] MMR 2002-04-01 00:00:00 Completed [facility] IPV 2002-04-01 00:00:00 Completed [facility] DTaP, Unspecified Formulation 2002-04-01 00:00:00 Completed [facility] MMR 2002-04-01 00:00:00 Completed [facility] IPV 2002-04-01 00:00:00 Completed [facility] DTaP, Unspecified Formulation 2002-04-01 00:00:00 Completed [facility] MMR 2002-04-01 00:00:00 Completed [facility] IPV 2002-04-01 00:00:00 Completed [facility] DTaP, Unspecified Formulation 2002-04-01 00:00:00 Completed [facility] MMR 2002-04-01 00:00:00 Completed [facility] IPV 2002-04-01 00:00:00 Completed [facility] DTaP, Unspecified Formulation 2002-04-01 00:00:00 Completed MMR 2002-04-01 00:00:00 Completed IPV 2002-04-01 00:00:00 Completed DPT/HIB 1996 00:00:00 Completed [facility] Hep B, Unspecified Formulation 1996 00:00:00 Completed [facility] Poliovirus, Live, Oral, Trivalent 1996 00:00:00 Completed [facility] DPT/HIB 1996 00:00:00 Completed [facility] Hep B, Unspecified Formulation 1996 00:00:00 Completed [facility] Poliovirus, Live, Oral, Trivalent 1996 00:00:00 Completed [facility] DPT/HIB 1996 00:00:00 Completed [facility] Hep B, Unspecified Formulation 1996 00:00:00 Completed [facility] Poliovirus, Live, Oral, Trivalent 1996 00:00:00 Completed [facility] DPT/HIB 1996 00:00:00 Completed [facility] Hep B, Unspecified Formulation 1996 00:00:00 Completed [facility] Poliovirus, Live, Oral, Trivalent 1996 00:00:00 Completed [facility] DPT/HIB 1996 00:00:00 Completed Hep B, Unspecified Formulation 1996 00:00:00 Completed Poliovirus, Live, Oral, Trivalent 1996 00:00:00 Completed Hep B, Unspecified Formulation 1996 00:00:00 Completed [facility] Hep B, Unspecified Formulation 1996 00:00:00 Completed [facility] Hep B, Unspecified Formulation 1996 00:00:00 Completed [facility] Hep B, Unspecified Formulation 1996 00:00:00 Completed [facility] Hep B, Unspecified Formulation 1996 00:00:00 Completed Vital Signs Vital Name Observation Time Observation Value Comments S ource Body height 2024-06-03 20:36:00 165.1 cm Ying Coyleybold - External Body weight 2024-06-03 20:36:00 130.636 kg Ying Coyleybold - External BMI 2024-06-03 20:36:00 47.93 kg/m2 Ying Seybold - External Systolic blood pressure 2024-04-11 07:00:00 140 mm[Hg] [facility] Diastolic blood pressure 2024-04-11 07:00:00 80 mm[Hg] [facility] Heart rate 2024-04-11 07:00:00 90 /min [facility] Body temperature 2024-04-11 07:00:00 37 Emmanuelle [facility] Oxygen saturation in Arterial blood by Pulse oximetry 2024-04-11 07:00:00 97 /min [facility] Respiratory rate 2024-04-11 06:06:00 18 /min [facility] Body height 2024-04-11 04:36:00 160 cm [facility] Body weight 2024-04-11 04:36:00 124.739 kg [facility] BMI 2024-04-11 04:36:00 48.71 kg/m2 [facility] Systolic blood pressure 2024-02-24 20:39:00 118 mm[Hg] Ying Seybold - External Diastolic blood pressure 2024-02-24 20:39:00 66 mm[Hg] Ying Seybold - External Heart rate 2024-02-24 20:39:00 80 /min Ying Seybold - External Body temperature 2024-02-24 20:39:00 36.94 Emmanuelle Ying Seybold - External Respiratory rate 2024-02-24 20:39:00 16 /min Ying Queen - External Body height 2024-02-24 20:39:00 165.1 cm Ying Queen - External Body weight 2024-02-24 20:39:00 128.459 kg Ying Queen - External BMI 2024-02-24 20:39:00 47.13 kg/m2 Ying Queen - External Systolic blood pressure 2022-12-03 00:15:00 118 mm[Hg] [facility] Diastolic blood pressure 2022-12-03 00:15:00 79 mm[Hg] [facility] Heart rate 2022-12-03 00:15:00 99 /min [facility] Body temperature 2022-12-03 00:15:00 37.44 Emmanuelle [facility] Respiratory rate 2022-12-03 00:15:00 15 /min [facility] Body height 2022-12-03 00:15:00 165.1 cm [facility] Body weight 2022-12-03 00:15:00 138.256 kg [facility] BMI 2022-12-03 00:15:00 50.72 kg/m2 [facility] Oxygen saturation in Arterial blood by Pulse oximetry 2022-12-03 00:15:00 98 /min [facility] Systolic blood pressure 2022-10-02 18:30:00 136 mm[Hg] [facility] Diastolic blood pressure 2022-10-02 18:30:00 75 mm[Hg] [facility] Heart rate 2022-10-02 18:30:00 80 /min [facility] Body temperature 2022-10-02 18:30:00 36.83 Emmanuelle [facility] Respiratory rate 2022-10-02 18:30:00 18 /min [facility] Body height 2022-10-02 18:30:00 162.6 cm [facility] Body weight 2022-10-02 18:30:00 132.904 kg [facility] BMI 2022-10-02 18:30:00 50.29 kg/m2 [facility] Systolic blood pressure 2022-04-30 16:31:00 133 mm[Hg] [facility] Diastolic blood pressure 2022-04-30 16:31:00 84 mm[Hg] [facility] Heart rate 2022-04-30 16:31:00 76 /min [facility] Body temperature 2022-04-30 16:31:00 35.83 Emmanuelle [facility] Respiratory rate 2022-04-30 16:31:00 18 /min [facility] Body height 2022-04-30 16:31:00 162.6 cm [facility] Body weight 2022-04-30 16:31:00 131.815 kg [facility] BMI 2022-04-30 16:31:00 49.88 kg/m2 [facility] Systolic blood pressure 2022-04-19 15:39:00 119 mm[Hg] [facility] Diastolic blood pressure 2022-04-19 15:39:00 76 mm[Hg] [facility] Heart rate 2022-04-19 15:39:00 81 /min [facility] Body temperature 2022-04-19 15:39:00 36.61 Emmanuelle [facility] Respiratory rate 2022-04-19 15:39:00 18 /min [facility] Body height 2022-04-19 15:39:00 162.6 cm [facility] Body weight 2022-04-19 15:39:00 131.044 kg [facility] BMI 2022-04-19 15:39:00 49.59 kg/m2 [facility] Systolic blood pressure 2022-03-03 15:17:00 125 mm[Hg] [facility] Diastolic blood pressure 2022-03-03 15:17:00 87 mm[Hg] [facility] Heart rate 2022-03-03 15:17:00 74 /min [facility] Body temperature 2022-03-03 15:17:00 36.83 Emmanuelle [facility] Respiratory rate 2022-03-03 15:17:00 18 /min [facility] Body height 2022-03-03 15:17:00 162.6 cm [facility] Body weight 2022-03-03 15:17:00 113.399 kg [facility] BMI 2022-03-03 15:17:00 42.91 kg/m2 [facility] Oxygen saturation in Arterial blood by Pulse oximetry 2022-03-03 15:17:00 99 /min [facility] Systolic blood pressure 2022-02-14 20:28:00 138 mm[Hg] [facility] Diastolic blood pressure 2022-02-14 20:28:00 85 mm[Hg] [facility] Heart rate 2022-02-14 20:28:00 66 /min [facility] Body temperature 2022-02-14 20:28:00 36.33 Emmanuelle [facility] Respiratory rate 2022-02-14 20:28:00 20 /min [facility] Body height 2022-02-14 20:28:00 162.6 cm [facility] Body weight 2022-02-14 20:28:00 124.059 kg [facility] BMI 2022-02-14 20:28:00 46.95 kg/m2 [facility] Systolic blood pressure 2022-01-24 22:13:00 144 mm[Hg] Had to try 3x before getting a reading [facility] Diastolic blood pressure 2022-01-24 22:13:00 98 mm[Hg] Had to try 3x before getting a reading [facility] Heart rate 2022-01-24 22:13:00 97 /min [facility] Body temperature 2022-01-24 22:13:00 36.89 Emmanuelle [facility] Respiratory rate 2022-01-24 22:13:00 18 /min [facility] Body height 2022-01-24 22:13:00 162.6 cm [facility] Body weight 2022-01-24 22:13:00 125.919 kg [facility] BMI 2022-01-24 22:13:00 47.65 kg/m2 [facility] Oxygen saturation in Arterial blood by Pulse oximetry 2022-01-24 22:13:00 98 /min [facility] Systolic blood pressure 2021-12-06 13:30:00 124 mm[Hg] [facility] Diastolic blood pressure 2021-12-06 13:30:00 54 mm[Hg] [facility] Heart rate 2021-12-06 13:30:00 72 /min [facility] Body temperature 2021-12-06 13:30:00 36.28 Emmanuelle [facility] Respiratory rate 2021-12-06 13:30:00 18 /min [facility] Body height 2021-12-06 13:30:00 165.1 cm [facility] Body weight 2021-12-06 13:30:00 130.296 kg [facility] BMI 2021-12-06 13:30:00 47.80 kg/m2 [facility] Procedures Procedure Date / Time Performed Performing Clinician Source COMP. METABOLIC PANEL (60830) 2024-04-11 06:05:00 Carmine Monroe [facility] CBC WITH DIFF 2024-04-11 06:05:00 Carmine Monroe [facility] INFLUENZA A/B RSV COVID NAAT 2024-04-11 06:05:00 Carmine Monroe [facility] POCT TEST 2024-04-11 05:12:00 Julia Monroe [facility] POCT SARS-COV-2 ANTIGEN (BINAX NOW) 2022-12-03 00:31:00 Jessika Manrique [facility] CBC WITH DIFF 2022-10-02 19:30:00 Jennifer Puri [facility] GLYCOSYLATED HEMOGLOBIN (A1C) 2022-10-02 19:30:00 Jennifer Puri [facility] HCV ANTIBODY 2022-10-02 19:30:00 Jennifer Puri [facility] GC & CHLAMYDIA AMPLIFIED ASSAY 2022-10-02 19:30:00 Jennifer Puri [facility] HIV 1/2 AG-AB WITH REFLEX 2022-10-02 19:30:00 Jennifer Puri [facility] TRICHOMONAS AMPLIFIED ASSAY 2022-10-02 19:30:00 Jennifer Puri [facility] PAP SMEAR-LIQUID BASED-CP 2022-10-02 19:30:00 Jennifer Puri [facility] SYPHILIS IGG/IGM 2022-10-02 19:30:00 Jennifer Puri [facility] PATIENT FINANCIAL POLICY 2022-10-02 18:08:46 Doctor Unassigned, [place] [facility] POCT TEST 2022-04-30 16:35:00 Jonel Adams [facility] DISCLOSURE AND CONSENT, MEDICAL AND SURGICAL PROCEDURES 2022-04-30 06:01:00 Doctor Unassigned, [place] [facility] POCT TEST 2022-04-19 15:41:00 Jonel Adams [facility] BASIC METABOLIC PANEL (NA, K, CL, CO2, GLUCOSE, BUN, CREATININE, CA) 2022-03-03 15:57:00 Tiana Antonio [facility] ETHANOL 2022-03-03 15:57:00 [place] Antonio [place] [facility] DIFF 2022-03-03 15:57:00 Tiana Antonio [facility] URINALYSIS 2022-03-03 15:57:00 Tiana Antonio [facility] URINE DRUG (IMMUNOASSAY) - COMPREHENSIVE DRUG SCREEN W/O REFLEX 2022-03-03 15:57:00 Tiana Antonio [facility] HB ECG ROUTINE & RHYTHM STRIP 2022-03-03 15:55:48 Tiana Antonio [facility] POCT TEST 2022-02-14 20:48:00 Jonel Adams [facility] ASSIGNMENT OF BENEFITS 2022-02-14 19:38:06 Docto r Unassigned, [place] [facility] POCT URINALYSIS 2022-01-24 22:31:00 Jessika Manrique [facility] POCT TEST 2021-12-06 15:36:00 Jonel Adams [facility] Encounters Start Date/Time End Date/Time Encounter Type Admission Type Attending Clinicians Care Facility Care Department Encounter ID Source 2021-01-22 06:46:10 Emergency [facility] [id number] [facility] 2024-06-30 14:45:00 2024-06-30 14:45:00 Outpatient OZZIE RIVERA YING RODRIGUEZ [id number] [facility] 2024-06-23 15:30:00 2024-06-23 15:30:00 Outpatient R [facility] [id number] [facility] 2024-06-04 00:00:00 2024-06-04 00:00:00 Outpatient GARCIAANGELOJENNIFERTaeBRADEN YING RODRIGUEZ [id number] [facility] 2024-06-03 15:30:00 2024-06-03 15:30:00 Outpatient FRANKIE DIETZ YING RODRIGUEZ [id number] [facility] 2024-06-03 00:00:00 2024-06-03 00:00:00 Outpatient MD YING RAMÍREZ [id number] [facility] 2024-06-02 14:30:00 2024-06-02 14:30:00 Outpatient R ESTEVAN ADAMS [facility] [id number] [facility] 2024-06-02 00:00:00 2024-06-02 00:00:00 Outpatient GARCIAANGELOBRADEN CRUZ YING RODRIGUEZ [id number] [facility] 2024-04-28 23:58:00 2024-04-29 02:03:00 Emergency Emergency PRESLEY MUNOZ [facility] General Medicine [id number] [facility] 2024-04-27 08:00:00 2024-04-27 08:00:00 Outpatient TISH LOCKWOOD [id number] [facility] 2024-04-24 14:45:00 2024-04-24 14:45:00 Outpatient JEB DAVIS [id number] [facility] 2024-04-17 13:45:00 2024-04-17 13:45:00 Outpatient YAN GRAHAM [facility] [id number] [facility] 2024-04-13 08:15:00 2024-04-13 08:15:00 Outpatient JEB DAVIS [id number] [facility] 2024-04-10 22:41:00 2024-04-11 01:27:00 Emergency X CARMINE MONROE SHINTA [facility] ERT [id number] [facility] 2024-04-10 22:41:00 2024-04-11 01:27:00 Emergency Carmine Monroe [facility] 1.2.840.114 350.1.13.10 4.2.7.2.686 [id number] [facility] 2024-03-16 15:00:00 2024-03-16 15:00:00 Outpatient MARILOU JARAMILLO [id number] [facility] 2024-03-12 15:00:00 2024-03-12 15:00:00 Outpatient JEB DAVIS [id number] [facility] 2024-02-25 10:30:00 2024-02-25 10:30:00 Outpatient MARILOU JARAMILLO [id number] [facility] 2024-02-24 13:45:00 2024-02-24 13:45:00 Outpatient JEB DAVIS [id number] [facility] 2023-09-18 14:00:00 2023-09-18 14:00:00 Outpatient YAN GRAHAM [facility] [id number] [facility] 2023-08-30 15:15:00 2023-08-30 15:15:00 Outpatient ESTEVAN ALCALA [facility] [id number] [facility] 2023-08-29 10:45:00 2023-08-29 10:45:00 Outpatient YAN GRAHAM [facility] [id number] [facility] 2023-02-21 15:00:00 2023-02-21 15:00:00 Outpatient ESTEVAN ALCALA [facility] [id number] [facility] 2023-01-28 00:00:00 2023-01-28 00:00:00 Outpatient GC_GCBZW_Ka diyala_S PRIV PRIV [id number] [facility] 2023-01-22 08:30:00 2023-01-22 08:30:00 Outpatient ESTEVAN ALCALA [facility] [id number] [facility] 2023-01-19 00:00:00 2023-01-19 00:00:00 Outpatient GC_GCBZW_Ka diyala_S PRIV PRIV [id number] [facility] 2023-01-18 00:00:00 2023-01-18 00:00:00 Outpatient GC_GCBZW_Ka diyala_S PRIV PRIV [id number] [facility] 2023-01-18 00:00:00 2023-01-18 00:00:00 Telephone Estevan Adams [facility] BASKET OPERATOR [facility]ERNAL [facility] 1.2.840.114 350.1.13.10 4.2.7.2.686 [id number] 107 [id number] [facility] 2023-01-14 14:00:00 2023-01-14 14:00:00 Outpatient R JUDE S, OMKAR JUDE S, OMKAR [facility] [id number] [facility] 2022-12-04 00:00:00 2022-12-04 00:00:00 Telephone Jessika Manrique [facility] 1.2.840.114 350.1.13.10 4.2.7.2.686 [id number] [facility] 2022-12-02 19:00:00 2022-12-02 19:35:03 Outpatient R JESSIKA MANRIQUE [facility] [id number] [facility] 2022-12-02 19:00:00 2022-12-02 19:20:00 Urgent Care Jessika Manrique, Attending [facility] 1.2.840.114 350.1.13.10 4.2.7.2.686 [id number] [facility] 2022-10-04 00:00:00 2022-10-04 00:00:00 Telephone Jennifer Puri [facility] BASKET OPERATOR [facility] 1.2.840.114 350.1.13.10 4.2.7.2.686 [id number] 107 [id number] [facility] 2022-10-02 13:30:00 2022-10-02 14:31:55 Outpatient R JENNIFER PURI [facility] [id number] [facility] 2022-10-02 13:30:00 2022-10-02 14:31:55 Office Visit Jennifer Puri [facility] BASKET OPERATOR [facility] 1.2.840.114 350.1.13.10 4.2.7.2.686 [id number] 107 [id number] [facility] 2022-10-02 00:00:00 2022-10-02 00:00:00 Orders Only Doctor Unassigned, [place] [facility] 1.2840.114 350.1.13.10 4.2.7.2.686 [id number] [facility] 2022-07-04 13:15:00 2022-07-04 13:15:00 Outpatient SIRIA MAGANA [facility] [id number] [facility] 2022-07-04 13:15:00 2022-07-04 13:15:00 Outpatient SIRIA MAGANA [facility] [id number] [facility] 2022-07-04 13:00:00 2022-07-04 13:00:00 Outpatient SIRIA MAGANA [facility] [id number] [facility] 2022-04-30 10:00:00 2022-04-30 10:30:00 Office Visit Estevan Adams [facility] BASKET OPERATOR [facility] 1.2.840.114 350.1.13.10 4.2.7.2.686 [id number] [facility] 2022-04-30 10:00:00 2022-04-30 10:00:00 Outpatient R ESTEVAN ADAMS [facility] [id number] [facility] 2022-04-30 00:00:00 2022-04-30 00:00:00 Orders Only Doctor Unassigned, [place] [facility] 1.2.840.114 350.1.13.10 4.2.7.2.686 [id number] [facility] 2022-04-19 09:30:00 2022-04-19 10:05:06 Outpatient R ESTEVAN ADAMS [facility] [id number] [facility] 2022-04-19 09:30:00 2022-04-19 10:05:06 Office Visit Estevan Adams [facility] BASKET OPERATOR [facility] 1.2.840.114 350.1.13.10 4.2.7.2.686 [id number] 107 [id number] [facility] 2022-04-19 00:00:00 2022-04-19 00:00:00 Letter (Out) Estevan Adams [facility] BASKET OPERATOR [facility] 1.2.840.114 350.1.13.10 4.2.7.2.686 [id number] 107 [id number] [facility] 2022-03-07 09:45:00 2022-03-07 09:45:00 Outpatient R SIRIA ANDERSON [facility] [id number] [facility] 2022-03-03 09:22:00 2022-03-03 12:44:00 Emergency X TIANA ANTONIO [facility] ERT [id number] [facility] 2022-03-03 09:22:00 2022-03-03 12:44:00 Emergency Tiana Antonio [facility] 1.0.114 350.1.13.10 4.2.7.2.686 [id number] [facility] 2022-02-18 00:00:00 2022-02-18 00:00:00 RefEstevan Rivera [facility] BASKET OPERATOR [facility] 1.0.114 350.1.13.10 4.2.7.2.686 [id number] 107 [id number] [facility] 2022-02-14 13:30:00 2022-02-14 14:35:37 Nurse Visit Visit, Naun-Rmchp Jennifer Magana [facility] 1..114 350.1.13.10 4.2.7.2.686 [id number] [facility] 2022-02-14 14:30:00 2022-02-14 14:30:00 Outpatient JENNIFER BALL [facility] [id number] [facility] 2022-02-14 13:30:00 2022-02-14 13:30:00 Outpatient JENNIFER BALL [facility] [id number] [facility] 2022-02-14 00:00:00 2022-02-14 00:00:00 Orders Only Doctor Unassigned, [place] [facility] 1..114 350.1.13.10 4.2.7.2.686 [id number] [facility] 2022-02-14 00:00:00 2022-02-14 00:00:00 Telephone Siria Anderson [facility] BASKET OPERATOR [facility] 1..114 350.1.13.10 4.2.7.2.686 [id number] 107 [id number] [facility] 2022-02-06 00:00:00 2022-02-06 00:00:00 Telephone Estevan Adams [facility] BASKET OPERATOR [facility] 1.2.840.114 350.1.13.10 4.2.7.2.686 [id number] 107 [id number] [facility] 2022-01-24 17:20:00 2022-01-24 17:28:54 Outpatient R JESSIKA MANRIQUE [facility] [id number] [facility] 2022-01-24 17:20:00 2022-01-24 17:28:54 Urgent Care Jessika Manrique Unknown, Attending [facility] 1.840.114 350.1.13.10 4.2.7.2.686 [id number] [facility] 2022-01-01 00:00:00 2022-01-01 00:00:00 Refill Estevan Adams [facility] BASKET OPERATOR [facility] 1.840.114 350.1.13.10 4.2.7.2.686 [id number] 107 [id number] [facility] 2022-01-01 00:00:00 2022-01-01 00:00:00 Telephone Estevan Adams [facility] BASKET OPERATOR [facility] 1.840.114 350.1.13.10 4.2.7.2.686 [id number] 107 [id number] [facility] 2021-12-29 00:00:00 2021-12-29 00:00:00 Refill Estevan Adams [facility] BASKET OPERATOR [facility] 1.2840.114 350.1.13.10 4.2.7.2.686 [id number] [facility] 2021-12-06 08:15:00 2021-12-06 08:54:24 Office Visit Estevan Adams Orestes [facility] BASKET OPERATOR [facility] MATERNAL & CH[facility] 1.2.840.114 350.1.13.10 4.2.7.2.686 [id number] 107 [id number] [facility] 2021-12-06 08:15:00 2021-12-06 08:54:24 Outpatient R ESTEVAN ADAMS [facility] [id number] [facility] 2021-12-06 08:15:00 2021-12-06 08:15:00 Outpatient R ESTEVAN ADAMS [facility] [id number] [facility] 2021-11-22 15:15:00 2021-11-22 15:15:00 Outpatient R ESTEVAN ADAMS [facility] [id number] [facility] 2021-11-21 00:00:00 2021-11-21 00:00:00 Telephone Siria Anderson [facility] BASKET OPERATOR [facility] 1.2.840.114 350.1.13.10 4.2.7.2.686 [id number] 107 [id number] [facility] 2021-11-20 00:00:00 2021-11-20 00:00:00 Telephone Siria Anderson [facility] BASKET OPERATOR [facility] 1.2.840.114 350.1.13.10 4.2.7.2.686 [id number] 107 [id number] [facility] 2021-09-03 00:00:00 2021-09-03 00:00:00 Refill Siria Anderson [facility] BASKET OPERATOR [facility] 1.2.840.114 350.1.13.10 4.2.7.2.686 [id number] 107 [id number] [facility] 2021-07-04 12:45:00 2021-07-04 13:31:36 Office Visit Siria Anderson [facility] BASKET OPERATOR [facility] MATERNAL & [facility] 1..840.114 350.1.13.10 4.2.7.2.686 [id number] 107 [id number] [facility] 2021-07-04 12:45:00 2021-07-04 13:31:36 Outpatient LUDA MAGANAKALI [facility] [id number] [facility] 2021-07-04 12:45:00 2021-07-04 12:45:00 Outpatient LUDA MAGANASTEPHANIE [facility] [id number] [facility] 2021-07-04 00:00:00 2021-07-04 00:00:00 Telephone Maisha West [facility] 1..840.114 350.1.13.10 4.2.7.2.686 [id number] [facility] 2021-07-03 18:20:00 2021-07-03 18:53:48 Outpatient JESSIKA MCGUIRE [facility] [id number] [facility] 2021-07-03 18:20:00 2021-07-03 18:53:48 Urgent Care Burton Jessika [facility] 1.2.840.114 350.1.13.10 4.2.7.2.686 [id number] [facility] 2021-07-03 18:20:00 2021-07-03 18:53:48 Outpatient Divya MANRIQUE JESSIKA [facility] [id number] [facility] 2021-07-03 09:30:00 2021-07-03 09:30:00 Outpatient EASTON RIOJAS [id number] [facility] 2021-07-03 08:15:00 2021-07-03 08:15:00 Outpatient EASTON RIOJAS [id number] [facility] 2021-07-03 00:00:00 2021-07-03 00:00:00 Patient Secure Msg Siria Anderson [facility] BASKET OPERATOR [facility]ERNAL [facility] 1.840.114 350.1.13.10 4.2.7.2.686 [id number] 107 [id number] [facility] 2021-06-21 13:00:00 2021-06-21 14:53:50 Outpatient R SIRIA ANDERSON [facility] [id number] [facility] 2021-06-21 13:00:00 2021-06-21 14:53:50 Office Visit Siria Anderson [facility] BASKET OPERATOR [facility] 1.840.114 350.1.13.10 4.2.7.2.686 [id number] 107 [id number] [facility] 2021-06-21 13:00:00 2021-06-21 14:53:50 Outpatient R SIRIA ANDERSON [facility] [id number] [facility] 2021-05-31 08:00:00 2021-05-31 09:04:36 Outpatient R SIRIA ANDERSON [facility] [id number] [facility] 2021-05-31 08:00:00 2021-05-31 09:04:36 Routine Visit Siria Anderson [facility] BASKET OPERATOR [facility] 1.84.114 350.1.13.10 4.2.7.2.686 [id number] 107 [id number] [facility] 2021-05-29 00:00:00 2021-05-29 00:00:00 Patient Secure g Siria Anderson [facility] BASKET OPERATOR [facility] 1..840.114 350.1.13.10 4.2.7.2.686 [id number] 107 [id number] [facility] 2021-05-19 00:00:00 2021-05-19 00:00:00 Telephone Estevan Adams [facility] BASKET OPERATOR [facility] 1.2.840.114 350.1.13.10 4.2.7.2.686 [id number] 107 [id number] [facility] 2021-05-17 13:00:00 2021-05-17 13:00:00 Nurse Visit Nurse, Naun Lima Exp Cprit Obgyn Siria Anderson [facility] BASKET OPERATOR [facility] 1.2840.114 350.1.13.10 4.2.7.2.686 [id number] 107 [id number] [facility] 2021-05-17 13:00:00 2021-05-17 08:46:02 Outpatient R SIRIA ANDERSON [facility] [id number] [facility] 2021-05-17 08:00:00 2021-05-17 08:45:55 Nurse Visit Visit, AbdichSiria Epperson [facility] BASKET OPERATOR [facility] 1.2840.114 350.1.13.10 4.2.7.2.686 [id number] 107 [id number] [facility] 2021-05-09 17:42:00 2021-05-12 16:52:00 Inpatient P THA JODEE [facility] [id number] [facility] 2021-05-09 17:42:00 2021-05-12 16:52:00 Hospital Encounter Jodee Almazan [facility] 1.0.114 350.1.13.10 4.2.7.2.686 [id number] [facility] 2021-05-10 17:00:00 2021-05-10 18:47:00 Surgery Zbigniew Fenrandez [facility] 1.2840.114 350.1.13.10 4.2.7.2.686 [id number] [facility] 2021-05-10 09:54:00 2021-05-10 18:34:00 Anesthesia Event Glen Mcgraw, Leonel [facility] 1.114 350.1.13.10 4.2.7.2.686 [id number] [facility] 2021-05-09 13:15:00 2021-05-09 14:00:22 Outpatient R SIRIA ANDERSON [facility] [id number] [facility] 2021-05-09 13:15:00 2021-05-09 14:00:22 Routine Visit Siria Anderson [facility] BASKET OPERATOR [facility]NAL [facility] 1..114 350.1.13.10 4.2.7.2.686 [id number] 107 [id number] [facility] 2021-05-02 15:30:00 2021-05-02 15:58:07 Outpatient R MONTSE ANDERSONSTEPHANIE [facility] [id number] [facility] 2021-05-02 15:30:00 2021-05-02 15:58:07 Routine Visit Siria Anderson [facility] BASKET OPERATOR [facility] 1..114 350.1.13.10 4.2.7.2.686 [id number] 107 [id number] [facility] 2021-05-02 00:00:00 2021-05-02 00:00:00 Abstract Siria Anderson [facility] BASKET OPERATOR [facility] 1..114 350.1.13.10 4.2.7.2.686 [id number] 107 [id number] [facility] 2021-04-28 09:30:00 2021-04-28 10:00:00 Irrigation Foreman Visit Ultrasound, Katelyn Whiting [facility] BASKET OPERATOR [facility]ERNAL [facility] CH[facility] 1..114 350.1.13.10 4.2.7.2.686 [id number] [facility] 2021-04-28 09:30:00 2021-04-28 09:30:00 Outpatient P [facility] [id number] [facility] 2021-04-28 09:30:00 2021-04-28 09:30:00 Outpatient P [facility] [id number] [facility] 2021-04-28 09:30:00 2021-04-28 09:30:00 Outpatient P KATELYN CRUZ SHANNON [facility] [id number] [facility] 2021-04-25 15:30:00 2021-04-25 16:19:38 Outpatient R SIRIA ANDERSON [facility] [id number] [facility] 2021-04-25 15:30:00 2021-04-25 16:19:38 Routine Visit Siria Anderson [facility] BASKET OPERATOR [facility] .2.840.114 350.1.13.10 4.2.7.2.686 [id number] 107 [id number] [facility] 2021-04-25 15:30:00 2021-04-25 15:30:00 Outpatient R SIRIA ANDERSON [facility] [id number] [facility] 2021-04-24 15:30:00 2021-04-24 15:30:00 Outpatient P [facility] [id number] [facility] 2021-04-21 00:00:00 2021-04-21 00:00:00 Telephone Siria Anderson [facility] BASKET OPERATOR [facility] .2.840.114 350.1.13.10 4.2.7.2.686 [id number] [facility] 2021-04-19 13:15:00 2021-04-19 13:15:00 Outpatient R SIRIA ANDERSON [facility] [id number] [facility] 2021-04-19 13:15:00 2021-04-19 13:15:00 Irrigation Foreman Visit Lab, Ang-Rmchp Siria Anderson [facility] BASKET OPERATOR [facility] 1.2.840.114 350.1.13.10 4.2.7.2.686 [id number] 107 [id number] [facility] 2021-04-19 13:00:00 2021-04-19 13:00:00 Outpatient P [facility] [id number] [facility] 2021-04-19 00:00:00 2021-04-19 00:00:00 Telephone Siria Anderson [facility] BASKET OPERATOR [facility] 1.2.840.114 350.1.13.10 4.2.7.2.686 [id number] 107 [id number] [facility] 2021-04-18 15:30:00 2021-04-18 16:11:31 Outpatient SIRIA MAGANA [facility] [id number] [facility] 2021-04-18 15:30:00 2021-04-18 16:11:31 Routine Visit Siria Anderson [facility] BASKET OPERATOR [facility] 1.2.840.114 350.1.13.10 4.2.7.2.686 [id number] 107 [id number] [facility] 2021-04-18 15:30:00 2021-04-18 16:11:31 Outpatient SIRIA MAGANA [facility] [id number] [facility] 2021-04-18 15:30:00 2021-04-18 15:30:00 Outpatient SIRIA MAGANA [facility] [id number] [facility] 2021-04-11 13:00:00 2021-04-11 14:15:13 Outpatient SIRIA MAGANA [facility] [id number] [facility] 2021-04-11 13:00:00 2021-04-11 14:15:13 Outpatient R SIRIA ANDERSON [facility] [id number] [facility] 2021-04-11 13:00:00 2021-04-11 14:15:13 Routine Visit Siria Anderson Divya [facility] BASKET OPERATOR [facility] 1.840.114 350.1.13.10 4.2.7.2.686 [id number] [facility] 2021-04-11 13:00:00 2021-04-11 13:00:00 Outpatient R SIRIA ANDERSON [facility] [id number] [facility] 2021-03-29 00:00:00 2021-03-29 00:00:00 Telephone Anette Andersonmanuel [email or web address] BASKET OPERATOR [facility] 1.840.114 350.1.13.10 4.2.7.2.686 [id number] [facility] 2021-03-22 14:30:00 2021-03-22 14:51:40 Outpatient R LUDA ANDERSONKALI [facility] [id number] [facility] 2021-03-22 14:30:00 2021-03-22 14:51:40 Routine Visit AndersonSiria Antonio [facility] BASKET OPERATOR [facility] .840.114 350.1.13.10 4.2.7.2.686 [id number] [facility] 2021-03-22 14:30:00 2021-03-22 14:30:00 Outpatient R LUDA ANDERSONKALI [facility] [id number] [facility] 2021-03-22 14:00:00 2021-03-22 14:30:00 Irrigation Foreman Visit Ultrasound, Ang-Mfm Siria Anderson Antonio [facility] BASKET OPERATOR [facility] 1.840.114 350.1.13.10 4.2.7.2.686 [id number] [facility] 2021-03-22 00:00:00 2021-03-22 00:00:00 Abstract AndersonSiria [facility] BASKET OPERATOR [facility] 1.2.840.114 350.1.13.10 4.2.7.2.686 [id number] [facility] 2021-03-15 00:00:00 2021-03-15 00:00:00 Patient Secure Msg AndersonSiria [facility] BASKET OPERATOR [facility] 1.2.840.114 350.1.13.10 4.2.7.2.686 [id number] [facility] 2021-03-14 00:00:00 2021-03-14 00:00:00 Telephone AndersonSiria [facility] BASKET OPERATOR [facility] 1.2.840.114 350.1.13.10 4.2.7.2.686 [id number] 107 [id number] [facility] 2021-03-13 00:00:00 2021-03-13 00:00:00 RefAaron Concepcion [facility] BASKET OPERATOR [facility] MATERNAL & CHILD [facility] 1.2.840.114 350.1.13.10 4.2.7.2.686 [id number] [facility] 2021-03-13 00:00:00 2021-03-13 00:00:00 Refill Siria Anderson [facility] BASKET OPERATOR [facility] & CHILD [facility] 1.2.840.114 350.1.13.10 4.2.7.2.686 [id number] [facility] 2021-03-10 00:00:00 2021-03-10 00:00:00 Refill Siria Anderson [facility] BASKET OPERATOR [facility] 1.2.840.114 350.1.13.10 4.2.7.2.686 [id number] 107 [id number] [facility] 2021-03-10 00:00:00 2021-03-10 00:00:00 Aaron Dykes [facility] BASKET OPERATOR [facility]ERNAL & CHILD [facility] 1.2.840.114 350.1.13.10 4.2.7.2.686 [id number] [facility] 2021-03-09 15:45:00 2021-03-09 16:18:23 Outpatient SIRIA MAGANA [facility] [id number] [facility] 2021-03-09 15:45:00 2021-03-09 16:18:23 Routine Visit Siria Anderson [facility] BASKET OPERATOR [facility] & [facility] 1.2.840.114 350.1.13.10 4.2.7.2.686 [id number] [facility] 2021-03-09 00:00:00 2021-03-09 00:00:00 Aaron Dykes [facility] BASKET OPERATOR [facility]ILD [facility] 1.2.840.114 350.1.13.10 4.2.7.2.686 [id number] [facility] 2021-03-09 00:00:00 2021-03-09 00:00:00 Siria Lechuga [facility] [[email or web address]] BASKET OPERATOR [facility] & CHILD [facility] 1.2.840.114 350.1.13.10 4.2.7.2.686 [id number] [facility] 2021-03-08 15:45:00 2021-03-08 15:45:00 Outpatient SIRIA MAGANA [facility] [id number] [facility] 2021-02-22 10:00:00 2021-02-22 11:57:26 Outpatient R AARON ALICEA [facility] [id number] [facility] 2021-02-22 09:59:09 2021-02-22 11:57:26 Routine Visit Provider, Aaron Barlow [facility] BASKET OPERATOR [facility] 1.2840.114 350.1.13.10 4.2.7.2.686 [id number] [facility] 2021-02-13 10:52:00 2021-02-13 11:22:00 Irrigation Foreman Visit Ultrasound, Silvana Ruff [facility] BASKET OPERATOR [facility] & [facility] 1..840.114 350.1.13.10 4.2.7.2.686 [id number] [facility] 2021-02-13 10:45:00 2021-02-13 10:45:00 Outpatient SILVANA WESLEY SANGEETA [facility] [id number] [facility] 2021-02-13 00:00:00 2021-02-13 00:00:00 Case Management Bo Rivera [facility] BASKET OPERATOR [facility] 1..840.114 350.1.13.10 4.2.7.2.686 [id number] [facility] 2021-02-03 00:00:00 2021-02-03 00:00:00 Telephone Aaron Alciea [facility] BASKET OPERATOR [facility] & CHILD [facility] .84.114 350.1.13.10 4.2.7.2.686 [id number] [facility] 2021-02-01 10:45:00 2021-02-01 11:09:09 Outpatient BO MIRANDA [facility] [id number] [facility] 2021-02-01 10:04:55 2021-02-01 11:09:09 Routine Visit Provider, Ang-Rmchp Bo Jorgensen [facility] BASKET OPERATOR [facility] 1.2.840.114 350.1.13.10 4.2.7.2.686 [id number] 107 [id number] [facility] 2021-01-31 00:00:00 2021-01-31 00:00:00 Refill Onofre [facility] LUCAS?[facility] 1.2.840.114 350.1.13.10 4.2.7.2.686 [id number] [facility] 2021-01-30 00:00:00 2021-01-30 00:00:00 Telephone Aaron Alicea [facility] BASKET OPERATOR [facility] 1..840.114 350.1.13.10 4.2.7.2.686 [id number] [facility] 2021-01-29 00:00:00 2021-01-29 00:00:00 Siria Lechuga [facility] BASKET OPERATOR [facility] 1.2.840.114 350.1.13.10 4.2.7.2.686 [id number] 107 [id number] [facility] 2021-01-29 00:00:00 2021-01-29 00:00:00 Refill Onofre Critical access hospital?[facility] 1..840.114 350.1.13.10 4.2.7.2.686 [id number] [facility] 2021-01-19 14:40:00 2021-01-19 15:06:44 Outpatient R AMAYA PEÑA [facility] [id number] [facility] 2021-01-19 14:22:57 2021-01-19 15:06:44 Urgent Care SanketkatinasarahEnriqueflory Casey, [facility] LUCAS?[facility] 1.2.840.114 350.1.13.10 4.2.7.2.686 [id number] [facility] 2021-01-04 00:00:00 2021-01-04 00:00:00 Telephone AndersonSiria [facility] [[email or web address]] BASKET OPERATOR [facility] 1.2.840.114 350.1.13.10 4.2.7.2.686 [id number] 107 [id number] [facility] 2021-01-03 00:00:00 2021-01-03 00:00:00 Telephone Martinez Ludakali [facility] [[email or web address]] BASKET OPERATOR [facility] & [facility] 1.2.840.114 350.1.13.10 4.2.7.2.686 [id number] 107 [id number] [facility] 2021-01-03 00:00:00 2021-01-03 00:00:00 Telephone Luda Andersonkali [facility] [[email or web address]] BASKET OPERATOR [facility] & [facility] 1.2.840.114 350.1.13.10 4.2.7.2.686 [id number] 107 [id number] [facility] 2021-01-02 10:45:39 2021-01-02 11:10:03 Routine Visit Provider, Aaron Barlow [facility] BASKET OPERATOR [facility] 1.2.840.114 350.1.13.10 4.2.7.2.686 [id number] [facility] 2021-01-02 10:45:00 2021-01-02 10:45:00 Outpatient R [facility] [id number] [facility] 2020-12-21 10:52:25 2020-12-21 11:26:21 Office Visit Palmira Phillips, Yair [facility] 1.284.114 350.1.13.10 4.2.7.2.686 [id number] 104 [id number] [facility] 2020-12-21 10:30:00 2020-12-21 10:30:00 Outpatient P [facility] [id number] [facility] 2020-12-19 08:20:30 2020-12-19 09:35:30 Irrigation Foreman Visit Ultrasound, Gianni Virk [facility] BASKET OPERATOR [facility] 1.2.840.114 350.1.13.10 4.2.7.2.686 [id number] [facility] 2020-12-19 08:00:00 2020-12-19 08:00:00 Outpatient P [facility] [id number] [facility] 2020-12-19 00:00:00 2020-12-19 00:00:00 Abstract Siria Anderson [facility] [[email or web address]] BASKET OPERATOR [facility] 1.2.840.114 350.1.13.10 4.2.7.2.686 [id number] 107 [id number] [facility] 2020-12-07 00:00:00 2020-12-07 00:00:00 Telephone Siria Anderson [facility] BASKET OPERATOR [facility] 1.2.840.114 350.1.13.10 4.2.7.2.686 [id number] 107 [id number] [facility] 2020-12-05 10:15:59 2020-12-05 10:54:56 Routine Visit Siria Anderson [facility] [[email or web address]] BASKET OPERATOR [facility] & CHILD [facility] 1.2840.114 350.1.13.10 4.2.7.2.686 [id number] 107 [id number] [facility] 2020-12-05 10:15:59 2020-12-05 10:54:56 Routine Visit Siria Anderson [facility] BASKET OPERATOR [facility] 1.2.840.114 350.1.13.10 4.2.7.2.686 [id number] [facility] 2020-12-05 10:15:00 2020-12-05 10:15:00 Outpatient R SIRIA ANDERSON [facility] [id number] [facility] 2020-11-07 08:42:18 2020-11-07 09:41:48 Routine Visit Siria Anderson [facility] BASKET OPERATOR [facility] 1.2840.114 350.1.13.10 4.2.7.2.686 [id number] 107 [id number] [facility] 2020-11-07 08:45:00 2020-11-07 08:45:00 Outpatient R SIRIA ANDERSON [facility] [id number] [facility] 2020-11-01 00:00:00 2020-11-01 00:00:00 Telephone Siria Anderson [facility] BASKET OPERATOR [facility] 1.2840.114 350.1.13.10 4.2.7.2.686 [id number] 107 [id number] [facility] 2020-10-27 00:00:00 2020-10-27 00:00:00 Patient Secure Msg Doctor Unassigned, [place] [facility] BASKET OPERATOR [facility] 1.2.840.114 350.1.13.10 4.2.7.2.686 [id number] [facility] 2020-10-27 00:00:00 2020-10-27 00:00:00 Telephone Siria Anderson [facility] BASKET OPERATOR [facility] 1.2.840.114 350.1.13.10 4.2.7.2.686 [id number] 107 [id number] [facility] 2020-10-26 00:00:00 2020-10-26 00:00:00 Telephone Siria Anderson [facility] BASKET OPERATOR [facility] 1.2.840.114 350.1.13.10 4.2.7.2.686 [id number] 107 [id number] [facility] 2020-10-19 13:59:38 2020-10-19 14:29:38 Irrigation Foreman Visit Ultrasound, Cristin Jonse [facility] BASKET OPERATOR [facility] 1.840.114 350.1.13.10 4.2.7.2.686 [id number] [facility] 2020-10-19 14:00:00 2020-10-19 14:00:00 Outpatient P [facility] [id number] [facility] 2020-10-19 00:00:00 2020-10-19 00:00:00 Abstract Siria Anderson [facility] BASKET OPERATOR [facility] 1.840.114 350.1.13.10 4.2.7.2.686 [id number] 107 [id number] [facility] 2020-10-10 08:57:06 2020-10-10 09:57:15 Initial Visit Siria Anderson [facility] BASKET OPERATOR [facility] 1.840.114 350.1.13.10 4.2.7.2.686 [id number] [facility] 2020-10-10 08:30:00 2020-10-10 08:30:00 Outpatient R [facility] [id number] [facility] 2020-10-10 00:00:00 2020-10-10 00:00:00 Orders Only Doctor Unassigned, [place] [facility] 1.84.114 350.1.13.10 4.2.7.2.686 [id number] [facility] 2020-06-24 16:00:00 2020-06-24 16:00:00 Outpatient R LENY [facility] [id number] [facility] 2020-06-24 11:27:53 2020-06-24 11:49:24 Office Visit [place], [facility] 1.2840.114 350.1.13.10 4.2.7.2.686 [id number] [facility] 2020-06-24 11:00:00 2020-06-24 11:00:00 Outpatient R LENY [facility] [id number] [facility] 2020-06-14 00:00:00 2020-06-14 00:00:00 Patient Outreach Reji Cruz [facility] 1.0.114 350.1.13.10 4.2.7.2.686 [id number] [facility] 2020-06-08 19:38:00 2020-06-09 12:50:00 Emergency Ann, Emma [place], Zoe S [place], [facility] 1.2840.114 350.1.13.10 4.2.7.2.686 [id number] [facility] 2020-06-08 18:59:31 2020-06-08 19:19:31 Urgent Care Provider, [facility] Care Saadia Lovett [facility] Office Building [facility] 1.284.114 350.1.13.10 4.2.7.2.686 [id number] [facility] 2020-06-08 18:40:00 2020-06-08 18:40:00 Outpatient SAADIA RAZO [facility] [id number] [facility] 2020-05-24 13:16:03 2020-05-24 14:05:26 [facility] 1.2.840.114 350.1.13.10 4.2.7.2.686 [id number] [facility] 2020-05-24 13:00:00 2020-05-24 13:00:00 [id number] 2020-05-19 13:00:00 2020-05-19 13:00:00 Outpatient R YOVANY DIOR [facility] [id number] [facility] 2020-05-19 00:00:00 2020-05-19 00:00:00 Orders Only Doctor Unassigned, [place] [facility] 1.840.114 350.1.13.10 4.2.7.2.686 [id number] [facility] 2020-03-28 19:14:32 2020-03-28 19:51:01 [facility] 1..840.114 350.1.13.10 4.2.7.2.686 [id number] [facility] 2020-03-28 19:20:00 2020-03-28 19:20:00 Outpatient R [facility] [id number] [facility] 2020-03-28 00:00:00 2020-03-28 00:00:00 Letter (Out) Doctor Unassigned, [place] [facility] 1.2840.114 350.1.13.10 4.2.7.2.686 [id number] [facility] 2020-01-15 08:15:00 2020-01-15 08:15:00 Outpatient R JAIME CLEMENT [facility] [id number] [facility] 2019-03-12 14:26:14 2019-03-12 23:59:00 Outpatient JAIME CLEMENT [facility] [id number] [facility] Results Test Description Test Time Test Comments Results Result Co mments Source [facility] with [id number] 06:29:27* Test Item Value Reference Range Interpretation [...] g/dL 31.6-35.1 L RDW-SD (test code = 87880-6) 39.6 fL 39.0-49.9 RDW-CV (test code = 788-0) 13.7 % 12.0-15.5 PLT (test code = 777-3) 426 166-358 H MPV (test code = 47536-9) 10.1 fL 9.5-12.9 NRBC/100 WBC (test code = 2497198807) 0.0 0.0-10.0 NRBC x10^3 (test code = 6906173099) See_Comment [Automated messa ge] The system which generated this result transmitted reference range: 10*3/?L. The reference range was not used to interpret this result as normal/abnormal. GRAN MAT (NEUT) % (test code = 770-8) 55.7 % IMM GRAN % (test code = 9537630964) 0.40 % LYMPH % (test code = 736-9) 37.1 % MONO % (test code = 5905-5) 5.6 % EOS % (test code = 713-8) 0.8 % BASO % (test code = 706-2) 0.4 % GRAN MAT x10^3(ANC) (test code = 8762777428) 5.34 10*3/uL 1.88-7.09 IMM GRAN x10^3 (test code = 5793690341) 0.04 10*3/uL 0.00-0.06 LYMPH x10^3 (test code = 731-0) 3.56 10*3/uL 1.32-3.29 H MONO x10^3 (test code = 742-7) 0.54 10*3/uL 0.33-0.92 EOS x10^3 (test code = 711-2) 0.08 10*3/uL 0.03-0.39 BASO x10^3 (test code = 704-7) 0.04 10*3/uL 0.01-0.07 Lab Interpretation (test code = 44825-5) [facility]normal [facility] [id number] 05:12:00* Test Item Value Reference Range Interpretation Comme nts POCT PREG (test code = 1605) Negative On board controls acceptable with C Line (test code = 3574) Yes POCT PREG LOT # (test code = 3575) [id number] POCT PREG TEST DATE ( test code = 3576) 2025-03-09 Lab Interpretation (test cod e = 65737-3) Normal [facility] SARS-COV-2 ANTIGEN (BINAX NOW)2022-12-03 00:31:00* Test Item Value Reference Range Interpretation Comme nts POCT SARS-COV-2 ANTIGEN (test code = 75178-2) Not Detected Not Detected On board controls acceptable with C Line (test code = 3574) Yes VASHTI (test code = VASHTI) accurate developme nt and interpretation of all internal controls Lab Interpretation (test code = 66399-5) Normal [facility] - SYPHILIS [id number] 16:24:15* Test Item Value Reference Range Interpretation Comme nts Syphilis IgG/IgM (test code = 10671-7) Non-reactive Non-reactive VASHTI (test code = VASHTI) Non-reactive - No serologic evidence of T. pallidum infection. Cannot exclude incubating or early syphilis. Submit a second specimen in 2-4 weeks if syphilis is clinically suspected. Equivocal - Further testing to follow. Reactive - Further testing to follow. Lab Interpretation (test code = 46981-7) Normal [facility] - SYPHILIS [id number] 16:24:15* Test Item Value Reference Range Interpretation Comme nts Syphilis IgG/IgM (test code = 83262-2) Non-reactive Non-reactive VASHTI (test code = VASHTI) Non-reactive - No serologic evidence of T. pallidum infection. Cannot exclude incubating or early syphilis. Submit a second specimen in 2-4 weeks if syphilis is clinically suspected. Equivocal - Further testing to follow. Reactive - Further testing to follow. Lab Interpretation (test code = 81691-3) Normal [facility] (A1C)2022-10-03 07:09:19* Test Item Value Reference Range Interpretation Comme nts HGB A1C (test code = 4548-4) 5.3 % 4.0-5.7 VASHTI (test code = VASHTI) Reference RangesNormal: <5.7%Prediabetes: 5.7 - 6.4%Diabetes: > 6.5% Lab Interpretation (test code = 42008-8) Normal [facility] (A1C)2022-10-03 07:09:19* Test Item Value Reference Range Interpretation Comme nts HGB A1C (test code = 4548-4) 5.3 % 4.0-5.7 VASHTI (test code = VASHTI) Reference RangesNormal: <5.7%Prediabetes: 5.7 - 6.4%Diabetes: > 6.5% Lab Interpretation (test code = 24407-1) Normal [facility] 1/2 AG-AB WITH [id number] 06:09:39* Test Item Value Reference Range Interpretation Comme [facility] HIV Semi-quantitative (test code = 95963-2) 0.09 Negative VASHTI (test code = VASHTI) Non-reactive for HIV-1 antigen and HIV-1/HIV-2 antibodies. ?No laboratory evidence of HIV infection. ?Repeat in 2-4 weeks if acute HIV infection is suspected. [facility] [id number] 06:09:39* Test Item Value Reference Range Interpretation Comme [facility] HCV Ab (test code = 43633-8) Negative HCV Semi-Quantitative (test code = 17743-6) 0.03 [facility] 1/2 AG-AB WITH [id number] 06:09:39* Test Item Value Reference Range Interpretation Comme nts HIV Semi-quantitative (test code = 60686-4) 0.09 Negative VASHTI (test code = VASHTI) Non-reactive for HIV-1 antigen and HIV-1/HIV-2 antibodies. ?No laboratory evidence of HIV infection. ?Repeat in 2-4 weeks if acute HIV infection is suspected. [facility] [id number] 06:09:39* Test Item Value Reference Range Interpretation Comme nts HCV Ab (test code = 27503-2) Negative HCV Semi-Quantitative (test code = 15293-5) 0.03 [facility] WITH [id number] 05:35:17* Test Item Value Reference Range Interpretation Comme nts WBC (test code = 6690-2) 9.97 See_Comment [Automated Nurixa ge] The system which generated this result [...] 31.7 g/dL 31.6-35.1 RDW-SD (test code = 18222-7) 38.7 fL 39.0-49.9 L RDW-CV (test code = 788-0) 13.0 % 12.0-15.5 PLT (test code = 777-3) 442 See_Comment H [Automated Nurixa ge] The system which generated this result transmitted reference range: 166 - 358 10*3/?L. The reference range was not used to interpret this result as normal/abnormal. MPV (test code = 03613-1) 10.9 fL 9.5-12.9 NRBC/100 WBC (test code = 7882134387) 0.0 See_Comment [Automated PhoneAndPhone ssage] The system which generated this result transmitted reference range: 0.0 - 10.0 /100 WBCs. The reference range was not used to interpret this result as normal/abnormal. NRBC x10^3 (test code = 2008933545) See_Comment [Automated messa ge] The system which generated this result transmitted reference range: 10*3/?L. The reference range was not used to interpret this result as normal/abnormal. GRAN MAT (NEUT) % (test code = 770-8) 61.3 % IMM GRAN % (test code = 8949445129) 0.20 % LYMPH % (test code = 736-9) 32.8 % MONO % (test code = 5905-5) 4.5 % EOS % (test code = 713-8) 0.9 % BASO % (test code = 706-2) 0.3 % GRAN MAT x10^3(ANC) (test code = 9016172002) 6.11 10*3/uL 1.88-7.09 IMM GRAN x10^3 (test code = 6405426359) 0.00-0.06 LYMPH x10^3 (test code = 731-0) 3.27 10*3/uL 1.32-3.29 MONO x10^3 (test code = 742-7) 0.45 10*3/uL 0.33-0.92 EOS x10^3 (test code = 711-2) 0.09 10*3/uL 0.03-0.39 BASO x10^3 (test code = 704-7) 0.03 10*3/uL 0.01-0.07 Lab Interpretation (test code = 37182-0) Abnormal [facility] WITH [id number] 05:35:17* Test Item Value Reference Range Interpretation [...] 31.7 g/dL 31.6-35.1 RDW-SD (test code = 73248-6) 38.7 fL 39.0-49.9 L RDW-CV (test code = 788-0) 13.0 % 12.0-15.5 PLT (test code = 777-3) 442 See_Comment H [Automated messa ge] The system which generated this result transmitted reference range: 166 - 358 10*3/?L. The reference range was not used to interpret this result as normal/abnormal. MPV (test code = 97206-4) 10.9 fL 9.5-12.9 NRBC/100 WBC (test code = 6889319175) 0.0 See_Comment [Automated PhoneAndPhone ssage] The system which generated this result transmitted reference range: 0.0 - 10.0 /100 WBCs. The reference range was not used to interpret this result as normal/abnormal. NRBC x10^3 (test code = 4666675763) See_Comment [Automated Nurixa ge] The system which generated this result transmitted reference range: 10*3/?L. The reference range was not used to interpret this result as normal/abnormal. GRAN MAT (NEUT) % (test code = 770-8) 61.3 % IMM GRAN % (test code = 7807457777) 0.20 % LYMPH % (test code = 736-9) 32.8 % MONO % (test code = 5905-5) 4.5 % EOS % (test code = 713-8) 0.9 % BASO % (test code = 706-2) 0.3 % GRAN MAT x10^3(ANC) (test code = 6901536969) 6.11 10*3/uL 1.88-7.09 IMM GRAN x10^3 (test code = 4165020826) 0.00-0.06 LYMPH x10^3 (test code = 731-0) 3.27 10*3/uL 1.32-3.29 MONO x10^3 (test code = 742-7) 0.45 10*3/uL 0.33-0.92 EOS x10^3 (test code = 711-2) 0.09 10*3/uL 0.03-0.39 BASO x10^3 (test code = 704-7) 0.03 10*3/uL 0.01-0.07 Lab Interpretation (test code = 88400-9) Abnormal [facility] [id number] 16:35:00* Test Item Value Reference Range Interpretation Comme nts POCT PREG (test code = 1605) Negative On board controls acceptable with C Line (test code = 3574) Yes POCT PREG LOT # (test code = 3575) POCT PREG TEST DATE ( test code = 3576) [facility] [id number] 16:35:00* Test Item Value Reference Range Interpretation Comme nts POCT PREG (test code = 1605) Negative On board controls acceptable with C Line (test code = 3574) Yes POCT PREG LOT # (test code = 3575) POCT PREG TEST DATE ( test code = 3576) [facility] [id number] 15:41:00* Test Item Value Reference Range Interpretation Comme nts POCT PREG (test code = 1605) Negative On board controls acceptable with C Line (test code = 3574) Yes POCT PREG LOT # (test code = 3575) POCT PREG TEST DATE ( test code = 3576) [facility] [id number] 15:41:00* Test Item Value Reference Range Interpretation Comme nts POCT PREG (test code = 1605) Negative On board controls acceptable with C Line (test code = 3574) Yes POCT PREG LOT # (test code = 3575) POCT PREG TEST DATE ( test code = 3576) [id number] 15:41:00* Test Item Value Reference Range Interpretation Comme nts POCT PREG (test code = 1605) Negative On board controls acceptable with C Line (test code = 3574) Yes POCT PREG LOT # (test code = 3575) POCT PREG TEST DATE ( test code = 3576) [facility] [id number] 15:41:00* Test Item Value Reference Range Interpretation Comme nts POCT PREG (test code = 1605) Negative On board controls acceptable with C Line (test code = 3574) Yes POCT PREG LOT # (test code = 3575) POCT PREG TEST DATE ( test code = 3576) [facility] [id number] 15:41:00* Test Item Value Reference Range Interpretation Comme nts POCT PREG (test code = 1605) Negative On board controls acceptable with C Line (test code = 3574) Yes POCT PREG LOT # (test code = 3575) POCT PREG TEST DATE ( test code = 3576) [facility] 16:42:23 ALCOHOL<10mg/dL03/03/2022 10:42 AM [facility]10 [id number] Toxic>100 Depression of 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>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 Fatalities ReportedUnShannon Medical CenterBASI METABOLIC PANEL (NA, K, CL, CO2, GLUCOSE, BUN, CREATININE, CA)2022-03-03 16:23:10* Test Item Value Reference Range Interpretation Comme nts NA (test code = 7324859557) 138 mmol/L 135-145 K (test code = 6446118494) 3.9 mmol/L 3.5-5.0 CL (test code = 9390969657) 106 mmol/L 98-108 CO2 TOTAL (test code = 3787640908) 24 mmol/L 23-31 AGAP (test code = 8877027707) 2-16 BUN (test code = 9786295081) 11 mg/dL 7-23 GLUCOSE (test code = 1837522781) 95 mg/dL 70-110 CREATININE (test code = 7885744678) 0.62 mg/dL 0.50-1.04 CALCIUM (test code = 4779290770) 9.4 mg/dL 8.6-10.6 eGFR (test code = 1729204628) mL/min/1.73m2 VASHTI (test code = VASHTI) Association [...] or urine or abnormalities in imaging tests). [facility] WITH [id number] 16:19:13* Test Item Value Reference Range Interpretation Comme nts WBC (test code = 6690-2) See_Comment [Automated Rocketskates] The system which generated this result transmitted reference range: 4.30 - 11.10 10*3/?L. The reference range was not used to interpret this result as normal/abnormal. RBC (test code = 789-8) See_Comment [Automated Nurixa ge] The system which generated this result [...] 32.8 g/dL 31.6-35.1 RDW-SD (test code = 02072-4) 38.5 fL 39.0-49.9 L RDW-CV (test code = 788-0) 12.9 % 12.0-15.5 PLT (test code = 777-3) See_Comment [Automated Nurixa ge] The system which generated this result transmitted reference range: 166 - 358 10*3/?L. The reference range was not used to interpret this result as normal/abnormal. MPV (test code = 44533-0) 10.2 fL 9.5-12.9 NRBC/100 WBC (test code = 9663435215) See_Comment [Automated PhoneAndPhone ssage] The system which generated this result transmitted reference range: 0.0 - 10.0 /100 WBCs. The reference range was not used to interpret this result as normal/abnormal. NRBC x10^3 (test code = 4815384576) See_Comment [Automated Nurixa ge] The system which generated this result transmitted reference range: 10*3/?L. The reference range was not used to interpret this result as normal/abnormal. GRAN MAT (NEUT) % (test code = 770-8) 54.2 % IMM GRAN % (test code = 1894254861) 0.30 % LYMPH % (test code = 736-9) 39.1 % MONO % (test code = 5905-5) 5.1 % EOS % (test code = 713-8) 1.2 % BASO % (test code = 706-2) 0.1 % GRAN MAT x10^3(ANC) (test code = 2561882172) 3.94 10*3/uL 1.88-7.09 IMM GRAN x10^3 (test code = 8703176556) 0.00-0.06 LYMPH x10^3 (test code = 731-0) 2.84 10*3/uL 1.32-3.29 MONO x10^3 (test code = 742-7) 0.37 10*3/uL 0.33-0.92 EOS x10^3 (test code = 711-2) 0.09 10*3/uL 0.03-0.39 BASO x10^3 (test code = 704-7) 0.01-0.07 Lab Interpretation (test code = 50551-7) Abnormal [facility] [id number] 20:48:00* Test Item Value Reference Range Interpretation Comme nts POCT PREG (test code = 1605) Negative On board controls acceptable with C Line (test code = 3574) Yes POCT PREG LOT # (test code = 3575) POCT PREG TEST DATE ( test code = 3576) [facility] URINALYSIS W SPECIFIC [id number] 22:32:00* Test Item Value Reference Range Interpretation [...] development and interpretation of all internal controls [facility] URINALYSIS W SPECIFIC [id number] 22:32:00* Test Item Value Reference Range Interpretation [...] development and interpretation of all internal controls [facility] [id number] 15:36:00* Test Item Value Reference Range Interpretation Comme nts POCT PREG (test code = 1605) Negative On board controls acceptable with C Line (test code = 3574) Yes POCT PREG LOT # (test code = 3575) POCT PREG TEST DATE ( test code = 3576) [facility] Notes Date/Time Note Provider Source 2024-04-11 01:25:30 [...] with steady gait, in no apparent distress. HAND Jessika Rivera RN [facility] 2024-04-10 22:36:35 Pt arrived ambulatory without assist. Pt c/o headache that started this morning. Tylenol 500mg this AM, no meds since HAND Melvina Regalado RN [facility] 2024-02-24 14:36:46 Chief Complaint Patient presents with Well Woman Exam Molly Arias LVN HAND [facility] 2022-12-05 10:12:02 Formatting of this n ote might be different from the original. Called to speak with [facility] in [place]. They state they did not ever get the prescription. Contacted the patient and she also has not received the prescription. She is requesting they be resent to [facility] in [place]. Re-ordered original prescription and sent to [facility] per patient request. [facility] 2022-12-04 18:01:37 Formatting of this n ote might be different from the original. Thao Lang is a 27 year old female Trinidad from [facility] called stating [facility] are wanting the prescriptions transferred. Please advise azelastine 137 mcg (0.1 %) nasal spray brompheniramine-pseudoephe drine-DM (BROMFED DM) 2-30-10 mg/5 mL syrup fluticasone propionate 50 mcg/actuation nasal spray methylPREDNISolone (MEDROL, KRISTA,) 4 mg tablets [facility] [place], [place] - [address] [place] [address] AT [facility] & [address] [facility] [place], [facility] [address] [facility]"
[2024-06-16 12:05] LABS: Absolute Monocytes 0.4 K/uL (0.1-1.3); Absolute Neutrophil 3.9 K/uL (1.8-8.0); Basophils % 0.5 % (0-1.3); Eosinophils % 0.5 % (0-4.4); Hematocrit 37.7 % (36.0-45.0); Hemoglobin 12.5 g/dL (12.0-15.0); MCH 25.3 pg (27.0-35.0); MCHC 33.2 g/dL (32.0-36.0); MCV 76.3 fL (80-100); Nucleated Red Blood Cells % 0.1 % (0-0); Platelets 366 thou/uL (152-406); RBC Red Blood Cell Count 4.94 M/uL (3.86-4.86); Red Cell Distribution Width 14.8 % (12.1-15.2)
[2024-06-16 12:08] LABS: Specific Gravity 1.026 (1.005-1.030); Urine Bacteria None Seen /HPF (<20); Urine Bilirubin NEGATIVE (Negative); Urine Blood Negative (Negative); Urine Clarity Turbid (Clear); Urine Color Yellow (Yellow); Urine Culture Reflex Order NOT NEEDED; Urine Glucose NEGATIVE (Negative); Urine Ketones NEGATIVE (Negative); Urine Microscopic Reflex YN ORDER UMIC; Urine Mucus Slight /HPF (None Seen); Urine Nitrite NEGATIVE (Negative); Urine Protein TRACE (Negative); Urine RBC <5 /HPF (None Seen); Urine Urobilinogen Normal (Normal); Urine WBC <5 /HPF (<5); Urine pH 6.5 (5.0-7.0)
[2024-06-16 12:09] LABS: Specific Gravity 1.026 (1.005-1.030)
[2024-06-16 12:12] LABS: Barbiturates NEGATIVE (NEGATIVE); Benzodiazepines NEGATIVE (NEGATIVE); Cocaine NEGATIVE (NEGATIVE); METHAMPHETAM NEGATIVE (NEGATIVE); Methadone NEGATIVE (NEGATIVE); Opiates NEGATIVE (NEGATIVE); Phencyclidine NEGATIVE (NEGATIVE); THC Cannibis POSITIVE (NEGATIVE)
[2024-06-16 12:19] LABS: PT Prothrombin Time 12.8 SECONDS (10-13.0); PTT, Activated Partial Thromb 28.4 SECONDS (27.2-37.4); Protime INR 1.13
[2024-06-16] MEDS ORDERED: ACETAMINOPHEN 325 MG TABLET ONE (12:29)
[2024-06-16 12:41] LABS: ALT/SGPT 37 U/L (13-56); AST/SGOT 23 U/L (15-37); Albumin 3.5 g/dL (3.4-5.0); Albumin/Globulin Ratio 0.7 (1.1-1.8); Alkaline Phosphatase 92 U/L (45-117); Anion Gap 7.6 mEq/L (5.0-15.0); BUN Blood Urea Nitrogen 10 mg/dL (7-18); Bicarbonate 26 mEq/L (21-32); Bilirubin Direct 0.2 mg/dL (0-0.2); Bilirubin Indirect, Calculated 0.5 mg/dL (0.2-0.8); Bilirubin Total 0.7 mg/dL (0.2-1.0); Globulin 4.7 g/dL (2.3-3.5); Glomerular Filtration Rate 101 ml/min (=/>90); Glucose Level 116 mg/dL (74-106); Potassium 3.6 mEq/L (3.5-5.1); Protein, Total 8.2 g/dL (6.4-8.2); Sodium Level 135 mEq/L (136-145)
--- NOTE | 2024-06-16 13:08 | EDPHYS ---
Physician Documentation [facility] Name: Thao Lang Age: 29 yrs Sex: Female : 1995 Arrival Date: 06/16/2024 Time: 11:04 Bed 15 Private MD: ED Physician Delta Patel HPI: 06/16 13:03 This 29 yrs old Female presents to ER via Ambulatory with complaints of Mental rn evaluation. 13:03 The patient presents to the emergency department with suicide ideation, and the patient rn has a plan. Onset: The symptoms/episode began/occurred at an unknown time. Severity of symptoms: At their worst the symptoms were. 13:06 The patient has not experienced similar symptoms in the past. The patient has not rn recently seen a physician. Patient reports command auditory hallucinations and suicidal ideation. Plan is to shoot herself. They have already been in contact with [facility] and reports [facility]. Denies intoxication or attempt.. 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 - Infectious Disease History:: Denies. - Family history:: not pertinent. - Hospitalizations: : No recent hospitalization is reported. - Social history:: Smoking status: Patient denies any tobacco usage or history of. ROS: 13:06 Constitutional: Negative for fever, chills, and weight loss, Neck: Negative for injury, rn pain, and swelling, Cardiovascular: Negative for chest pain, palpitations, and edema, Respiratory: Negative for shortness of breath, cough, wheezing, and pleuritic chest pain, Abdomen/GI: Negative for abdominal pain, nausea, vomiting, diarrhea, and constipation, MS/Extremity: Negative for injury and deformity, Skin: Negative for injury, rash, and discoloration, Neuro: Negative for headache, weakness, numbness, tingling, and seizure, Exam: 13:06 Constitutional: This is a well developed, well nourished patient who is awake, alert, rn and in no acute distress. Neuro: Awake and alert, GCS 15 Psych: Awake, alert, with orientation to person, place and time. Behavior, mood, and affect are within normal limits. 14:27 ECG was reviewed by the Attending Physician. rn Vital Signs: 11:21 BP 139 / 88; Pulse 96; Resp 15; Temp 98.3; Pulse Ox 99% ; Weight 127.01 kg; Height 5 jl7 ft. 5 in. ; Pain 10/10; 14:35 BP 135 / 85; Pulse 90; Resp 15; Pulse Ox 100% ; Pain 0/10; jl7 14:53 Pain 0/10; jl7 11:21 Body Mass Index 46.59 (127.01 kg, 165.1 cm) jl7 11:21 Pain Scale: Adult jl7 14:35 Pain Scale: Adult jl7 14:53 Pain Scale: Adult jl7 MDM: 11:06 Medical Screening Exam initiated rn 13:06 Differential diagnosis: depression, psychosis secondary to non-compliance, rn Schizophrenia. Data reviewed: vital signs, nurses notes, lab test result(s), and as a result, I will discharge patient. Counseling: I had a detailed discussion with the patient and/or guardian regarding the historical points, exam findings, and any diagnostic results supporting the discharge/admit diagnosis, lab results, the need to transfer to another facility. 06/16 11:25 Order name: Acetaminophen; Complete Time: 13:06/16 11:25 Order name: Basic Metabolic Panel; Complete Time: 13:06/16 11:25 Order name: CBC with Diff; Complete Time: 13:06/16 11:25 Order name: ETOH Level; Complete Time: 13:06/16 11:25 Order name: Hepatic Function; Complete Time: 13:06/16 11:25 Order name: PT-INR; Complete Time: 13:06/16 11:25 Order name: Test, Urine; Complete Time: 13:06/16 11:25 Order name: Ptt, Activated; Complete Time: 13:06/16 11:25 Order name: Salicylate; Complete Time: 13:06/16 11:25 Order name: Urinalysis w/ reflexes; Complete Time: 13:06/16 11:25 Order name: Urine Drug Screen; Complete Time: 13:03 06/16 11:25 Order name: EKG - Nurse/Tech; Complete Time: 12:33 06/16 11:25 Order name: IV Saline Lock; Complete Time: 12:39 06/16 11:25 Order name: Labs collected and sent; Complete Time: 12:39 iw 06/16 11:25 Order name: Suicide Precautions; Complete Time: 12:39 06/16 11:25 Order name: Suicide Screening ([place]); Complete Time: 12:39 iw EC:27 Rate is 82 beats/min. Rhythm is regular. QRS [place] is Normal. [place] interval is normal. QRS rn interval is normal. QT interval is normal. No Q waves. T waves are Normal. No ST changes noted. Clinical impression: Normal ECG. Interpreted by me. Reviewed by me. Administered Medications: 12:00 Drug: Tylenol 650 mg PO once Route: PO; jl7 14:53 Follow up: Pain 0/10 Adult; Response: No adverse reaction; Pain is decreased jl7 14:15 Drug: Ativan IVP 0.5 mg IVP once Route: IVP; Site: right antecubital; jl7 14:35 Follow up: Response: No adverse reaction; Marked relief of symptoms jl7 Disposition Summary: 06/16/24 13:08 Transfer Ordered Notes: Transfer Location: Psych Facility rn Reason: Higher level of care rn Condition: Stable rn Problem: new rn Symptoms: are unchanged rn Accepting Physician: (06/16/24 15:11) jl7 Diagnosis - Suicidal ideations rn - Auditory hallucinations rn Forms: - Medication Reconciliation Form rn - SBAR form rn Signatures: Dispatcher [employer] EDMS Sapphire Slaughter, RN RN Delta Patel MD MD rn Leal, Jahala, RN RN jl7 Corrections: (The following items were deleted from the chart) 11: 11:26 ACETAMINOPHEN+C.LAB.BRZ ordered. EDMS EDMS 11: 11:26 BASIC METABOLIC PANEL+C.LAB.BRZ ordered. EDMS EDMS 11: 11:26 CBC+H.LAB.BRZ ordered. EDMS EDMS 11: 11:26 ETHANOL+C.LAB.BRZ ordered. EDMS EDMS 11: 11:26 HEPATIC FUNCTION+C.LAB.BRZ ordered. EDMS EDMS 11: PROTIME (+INR)+COAG.LAB.BRZ ordered. EDMS EDMS 11: Test, Urine+UC.LAB.BRZ ordered. EDMS EDMS 11: PTT, ACTIVATED+COAG.LAB.BRZ ordered. EDMS EDMS 11: SALICYLATE+C.LAB.BRZ ordered. EDMS EDMS 11: Urinalysis+U.LAB.BRZ ordered. EDMS EDMS 11: URINE DRUG SCREEN+UC.LAB.BRZ ordered. EDMS EDMS 15:11 13:08 Dr. ryan jl7
--- NOTE | 2024-06-16 13:08 | ER ---
Nurse's Notes [facility] Name: Thao Lang Age: 29 yrs Sex: Female : 1995 Arrival Date: 06/16/2024 Time: 11:04 Bed 15 Private MD: Diagnosis: Suicidal ideations;Auditory hallucinations Presentation: 06/16 11:21 Chief complaint: Patient states: Pt reports auditory hallucinations, voices telling her jl7 to harm herself and others. 12:25 Coronavirus screen: At this time, the client does not indicate any symptoms associated jlLa with coronavirus-19. Ebola Screen: No symptoms or risks identified at this time. Initial Sepsis Screen: Does the patient meet any 2 criteria? No. Patient's initial sepsis screen is negative. Does the patient have a suspected source of infection? No. Patient's initial sepsis screen is negative. Risk Assessment: Do you want to hurt yourself or someone else? Patient reports desire/thoughts of hurting themselves or someone else. Provider notified. Onset of symptoms is unknown. 12:25 Acuity: IZABELLA 2 jl7 12:25 Care prior to arrival: None. jl7 12:40 Method Of Arrival: Ambulatory jl7 Triage Assessment: 11:21 General: Appears in no apparent distress. uncomfortable, Behavior is cooperative, jl7 restless. Pain: Complains of pain in PATRICK Pain currently is 10 out of 10 on a pain scale. Neuro: Level of Consciousness is awake, alert, obeys commands, Oriented to person, place, time, situation. Cardiovascular: Patient's skin is warm and dry. Respiratory: Airway is patent Respiratory effort is even, unlabored, Respiratory pattern is regular, symmetrical. Derm: Skin is pink, warm \\T\\ dry. 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 - Infectious Disease History:: Denies. - Family history:: not pertinent. - Hospitalizations: : No recent hospitalization is reported. - Social history:: Smoking status: Patient denies any tobacco usage or history of. Screenin:45 [facility] ED Fall Risk Assessment (Adult) History of falling in the last 3 months, jl7 including since admission No falls in past 3 months (0 pts) Confusion or Disorientation No (0 pts) Intoxicated or Sedated No (0 pts) Impaired Gait No (0 pts) Mobility Assist Device Used No (0 pt) Altered Elimination No (0 pt) Score/Fall Risk Level 0 - 2 = Low Risk Oriented to surroundings, Maintained a safe environment. Abuse screen: Denies threats or abuse. Denies injuries from another. Nutritional screening: No deficits noted. Tuberculosis screening: No symptoms or risk factors identified. Assessment: 11:30 Reassessment: Cece Noriega MA, DRUM PLATER, pt's therapist, accompanied pt to ED for jl7 evaluation. 13:20 Reassessment: Pt called father requesting to be picked up for ED. ERD notified. jl7 13:55 Reassessment: [facility] at bedside for STEPHANIE. jl7 14:40 Reassessment: [facility] at bedside to transport pt. jl7 14:43 Reassessment: Belongings sent with EMS at transfer. jl7 Psych: 11:30 Mobile Suicide Severity Screening: In the past month, have you wished you were jl7 or wished you could go to sleep and not wake up? Patient responds "yes." Based off the client's responses additional C-SSRS screening is required. "In the past month, have you actually had any thoughts of killing yourself?" Patient responds "yes." Based off the client's response additional Mobile suicide severity screening questions to be further documented on paper forms. "In your lifetime, have you ever done anything, started to do anything, or prepared to do anything to end your life?" Patient responds "yes." Patient reports suicidal intent within 3 past months. Patient reports suicidal intent occurred greater than 3 months prior. Subjective: Patient's mood is irritable, Delusions are grandiose, religion, Hallucinations are auditory, Having thoughts of SI \\T\\ HI. Objective: Patient is cooperative, using poor eye contact, Speech is normal, Affect is blunted. Interventions: Removed personal items and placed in bag. Patient placed in hospital gown. Searched person for dangerous items. Urine collected and sent for urine drug test. Belonging list filled out. Safety Checks: Personal items have been removed. Door is open. Visitors are present. Pt denies substance abuse. Commitment: Patient will be a voluntary commitment. Vital Signs: 11:21 BP 139 / 88; Pulse 96; Resp 15; Temp 98.3; Pulse Ox 99% ; Weight 127.01 kg; Height 5 jl7 ft. 5 in. ; Pain 10/10; 14:35 BP 135 / 85; Pulse 90; Resp 15; Pulse Ox 100% ; Pain 0/10; jl7 14:53 Pain 0/10; jl7 11:21 Body Mass Index 46.59 (127.01 kg, 165.1 cm) jl7 11:21 Pain Scale: Adult jl7 14:35 Pain Scale: Adult jl7 14:53 Pain Scale: Adult jl7 ED Course: 11:06 Patient arrived in ED. mr 11:06 Delta Patel MD is Attending Physician. rn 11:30 Norma Natarajan RN is Primary Nurse. jl7 11:30 Patient has correct armband on for positive identification. Provided Education on: jl7 psych process. 11:45 Initial lab(s) drawn, by tx, sent to lab. Urine collected: clean catch specimen, clear, jl7 EKG done, by ED staff, reviewed by Delta Patel MD. Inserted saline lock: 22 gauge in right antecubital area, using aseptic technique. Blood collected. Flushed with 10 mL NS. 12:00 Arm band placed on right wrist. jl7 12:41 Triage completed. jl7 13:16 contacted [facility] to have a screener evaluate pt. bd 13:50 faxed chart to [facility]. bd 14:43 No provider procedures requiring assistance completed. IV discontinued, intact, jl7 bleeding controlled, No redness/swelling at site. Pressure dressing applied. Administered Medications: 12:00 Drug: Tylenol 650 mg PO once Route: PO; jl7 14:53 Follow up: Pain 0/10 Adult; Response: No adverse reaction; Pain is decreased jl7 14:15 Drug: Ativan IVP 0.5 mg IVP once Route: IVP; Site: right antecubital; jl7 14:35 Follow up: Response: No adverse reaction; Marked relief of symptoms jl7 Medication: 11:45 VIS not applicable for this client. jl7 Outcome: 13:08 ER care complete, transfer ordered by . rn 14:43 Transferred by ground EMS to other acute care facility: [facility]. Transfer form jl7 completed. 14:43 Condition: stable 14:43 Discharge instructions given to patient, EMS, Instructed on the need for transfer, Demonstrated understanding of instructions, 15:11 Patient left the ED. jl7 Signatures: Saray Lemus, Dena, Reg Reg mr Delta Patel MD MD rn Leal, Jahala, RN RN jl7
[2024-06-16] MEDS ORDERED: LORazepam 2 MG/ML VIAL ONE (14:13)
[2024-06-16 15:25] VITALS: TEMP 98.3
[2024-06-16 15:32] VITALS: BP 135/85; O2SAT 100
--- NOTE | 2024-06-18 08:43 | EKG ---
Test Date: 2024-06-16 Test Time: 12:25:44 Library Manager: SYLWIA MEASUREMENT RESULTS: Intervals: Rate: 82 OH: 136 QRSD: 92 QT: 366 QTc: 427 [place]: P: 29 OH: 136 QRS: 75 T: 13 INTERPRETIVE STATEMENTS: Normal sinus rhythm Normal ECG Compared to ECG 06/16/2024 12:18:18 Atrial flutter no longer present Electronically Signed On 06-18-24 08:37:49 CDT by Milad Guzman
--- NOTE | 2024-06-18 08:43 | EKG ---
Test Date: 2024-06-16 Test Time: 12:18:18 Procurement Manager: SYLWIA MEASUREMENT RESULTS: Intervals: Rate: 88 MN: QRSD: 88 QT: 352 QTc: 425 [place]: P: 49 MN: QRS: 72 T: 17 INTERPRETIVE STATEMENTS: Normal sinus rhythm Abnormal ECG No previous ECG available for comparison Electronically Signed On 06-18-24 08:38:17 CDT by Milad Guzman
== END 2024-06-16 15:11 ==
LOC: ER 11:04
DX: R45.851 Suicidal ideations (principal); R44.0 Auditory hallucinations
CPT/HCPCS: 36415; 80048; 80076; 80143; 80179; 80307; 81001; 81025; 82077; 85025; 85610; 85730; 93005; 96374; 99285

== ENCOUNTER 2024-06-27 12:48 | Emergency (ER) | payer OTHER ==
--- OUTSIDE RECORDS SUMMARY | 2024-06-27 12:54 | XMS REPORT | Continuity of Care Document ---
Author Name Unknown Address [address] [place] [address] [facility] Address [address] [place] [address] Care Team Providers Care Marble Polisher Name Role Phone ESTEVAN ADAMS Primary Care Physician Unav OZZIE Dang Attending Clinician Unavailab BRADEN Torres Attending Clinician Unavailable FRANKIE DIETZ Attending Clinician Unavailable MD RIKI Attending Clinician Unavailab ESTEVAN Reyes Attending Clinician Unavail able PRESLEY MUNOZ Attending Clinician Unavailable TISH LOCKWOOD Attending Clinician Unavailable JEB DAVIS Attending Clinician Unavailable YAN POPE Attending Clinician Unavailable CARMINE MONROE Attending Clinician Unavailable CARMINE MONROE Attending Clinician Unavailable Carmine Marcial Attending Clinician MARILOU JARAMILLO Attending Clinician Unavailable OMKAR HOU Attending Clinician OMKAR Bender Attending Clinician JULISSA Marti Attending Clinician Unavailable JENNIFER PURI Attending Clinician Unavaila galilea GC_GCBZW_Kadinikosa_S Attending Clinician Unavaila Estevan Villalobos Attending Clinician + Burton MARC, Jessika Attending Clinician [phone] JESSIKA MANRIQUE Attending Clinician Unavailable Unknown, Attending Attending Clinician Unavailab jaime Puri CNM, Jennifer Malik Attending Clinician [phone] Doctor Unassigned, [place] Attending Clinician U salbador JUSTIN, SIRIA R Attending Clinician Unavailab TIANA Argueta Attending Clinician Unavailable Tiana Antonio MD Attending Clinician + [phone] Visit, [facility] Nurse Attending Clinician Unava yessi Anderson WAITER/WAITRESS ECONOMY CLASS, Siria R Attending Clinician [phone] Maisha West RN Attending Clinician Unavailable EASTON RIOJAS Attending Clinician Unavailable Nurse, Naun [facility] Exp Cprit Obgyn Attending Clini luis felipe Unavailable JODEE ALMAZAN Attending Clinician Unavailable Jodee Almazan MD Attending Clinician [phone] Zbigniew Fernandez MD Attending Clinician + [phone] Glen Mcgraw MD Attending Clinician [phone] Leonel Mason MD Attending Clinician [phone] Ultrasound, Naun-m Attending Clinician UnavailKatelyn Mullen MD Attending Clinician [phone] KATELYN CRUZ Attending Clinician Unavailable KATELYN CRUZ Attending Clinician Unavailable Lab, Ang-Rmchdaren Attending Clinician Unavailable [facility] Attending Clinician + AARON ALICEA Attending Clinician Unavail able [facility] Dalila Silvana Whitehead MD Attending Clinician [phone] SILVANA VENEGAS Attending Clinician Unavailable SILVANA VENEGAS Attending Clinician Unavailable Bo Hernandez Attending Clinician [phone] BO RIVERA Attending Clinician UnavailAracely RAMÍREZP, Nguyễn Attending Clinician [phone] AMAYA PEÑA Attending Clinician Unavailable Casey SHARMA, Amaya Attending Clinician [phone] Palmira Phillips Attending Clinician Unavailyahaira Escoto MD, Yair Borjas Attending Clinician [phone] Sherman MARC, Gianni Chou Attending Clinician [phone] Robbie Wolfe MD, Cristin Attending Clinician + Julissa Michele MD Attending Clinician [phone] Anthony RYDER, Reji Brandon Attending Clinician Seth WAITER/[employer]RESS [employer]OM[employer] CLASS, mEma Attending Clinician [phone] Zoe Toledo MD Attending Clinician [phone] Provider, [facility] Attending Clinician Un available Bony SHARMA, Saadia Attending Clinician +[phone] SAADIA LOVETT Attending Clinician Unavailable Omar WAITER/WAITRESS ECONOMY CLASS, Delano Attending Clinician DELANO NELSON Attending Clinician UnavailYOVANY Barnhart Attending Clinician Unavailable JAIME CLEMENT Attending Clinician Unavailable GC_GCBZW_Kadidarinel_S Admitting Clinician UnavailJODEE León Admitting Clinician Unavailable Tha MARC, Jodee Suarez Admitting Clinician [phone] Julissa Michele MD Admitting Clinician [phone] Payers Payer Name Policy Type Policy Number Effective Date Expirati on Date Source [employer] [place] [employer] [id number] 2016 00:00:00 [facility] AMANDA GILMORE COPAY FOCUS 9 [id number] 2024 00:00:00 [facility] W/ YING MARTINEZ [id number] 2024 00:00:00 [facility] CHAVO STAR [id number] 2024 00:00:00 2025 00:00:00 [employer]CHANGE OON Exchange [id number] 2024 00:00:00 [place] [facility] STAR [id number] 2022 00:00:00 MEDICAID PENDING PENDING 2020 00:00:00 Problems Condition Name Condition Details Condition Category Status Onset Date Resolution Date Last Treatment Date Treating Clinician Comments Source Presence of intrauteri ne contracept yamila device Presence of intrauteri ne contracept yamila device Disease Active 10-04 00:00: 00 General acute hospital History of abnormal cervical Pap smear History of abnormal cervical Pap smear Disease Active 10-04 00:00: 00 Overview: Formattin g of this note might be different from the original. 09/2020 L[facility]IL General acute hospital Upper respirator y symptom Upper respirator y symptom Disease Active 1-18 00:00: 00 General acute hospital Anemia of mother in , antepartum Anemia of mother in , antepartum Disease Active 2020-03 2-16 00:00: 00 General acute hospital Morbid obesity Morbid obesity Disease Active 1-06 00:00: 00 General acute hospital Folliculit is Folliculit is Disease Resolve d 4-12 00:00: 00 2022-10-04 00:00:00 2022-10-04 08:51:23 General acute hospital Flu vaccine need Flu vaccine need Disease Resolve d 3-30 00:00: 00 2022-10-04 00:00:00 2022-10-04 08:51:25 General acute hospital Vaginal lesion Vaginal lesion Disease Resolve d 3-30 00:00: 00 2022-10-04 00:00:00 2022-10-04 08:51:39 General acute hospital Elevated blood-pres sure reading, without diagnosis of hypertensi on Elevated blood-pres sure reading, without diagnosis of hypertensi on Disease Resolve d 2-15 00:00: 00 2022-10-04 00:00:00 2022-10-04 08:51:26 General acute hospital COVID COVID Disease Resolve d 2-01 00:00: 00 2022-10-04 00:00:00 2022-10-04 08:51:27 General acute hospital Upper respirator y symptom Upper respirator y symptom Disease Resolve d 1-18 00:00: 00 2022-10-04 00:00:00 2022-10-04 08:51:28 General acute hospital Abnormal glandular Papanicola ou smear of cervix Abnormal glandular Papanicola ou smear of cervix Disease Resolve d 8-04 00:00: 00 2022-10-04 00:00:00 2022-10-04 08:51:32 Overview: Formattin g of this note might be different from the original. LGSIL on 2020 pap smear, needs repeat in 12 months General acute hospital BMI 45.0-49.9, adult BMI 45.0-49.9, adult Disease Resolve d 7-19 00:00: 00 2022-10-04 00:00:00 2022-10-04 08:51:37 General acute hospital Screening examinatio n for STD (sexually transmitte d disease) Screening examinatio n for STD (sexually transmitte d disease) Disease Resolve d 2-16 00:00: 00 2022-10-04 00:00:00 2022-10-04 08:51:30 General acute hospital Research study patient Research study patient Disease Resolve d 2-16 00:00: 00 2022-04-19 00:00:00 2022-04-19 10:06:25 Overview: Formattin g of this note might be different from the original. PACT (fellow) General acute hospital GBS (group B Streptococ cus carrier), +RV culture, currently GBS (group B Streptococ cus carrier), +RV culture, currently Disease Resolve d 1-27 00:00: 00 2022-04-19 00:00:00 2022-04-19 10:06:35 Overview: Formattin g of this note might be different from the original. Address in labor and delivery. General acute hospital Anemia of mother in , antepartum Anemia of mother in , antepartum Disease Resolve d 2020-03 2-16 00:00: 00 2022-04-19 00:00:00 2022-04-19 10:06:42 General acute hospital Abnormal quad screen Abnormal quad screen Disease Resolve d 2020-03 2-16 00:00: 00 2022-04-19 00:00:00 2022-04-19 10:06:43 General acute hospital Supervisio n of high risk in third trimester Supervisio n of high risk in third trimester Disease Resolve d 2020-0 7-19 00:00: 00 2022-04-19 00:00:00 2022-04-19 10:06:21 General acute hospital SAB (spontaneo us ) SAB (spontaneo us ) Disease Resolve d 2020-0 7-19 00:00: 00 2022-04-19 00:00:00 2022-04-19 10:06:23 General acute hospital in first trimester with history of ectopic in first trimester with history of ectopic Disease Resolve d 2020-0 7-19 00:00: 00 2022-04-19 00:00:00 2022-04-19 10:06:27 General acute hospital Primigravi da in third trimester Primigravi da in third trimester Disease Resolve d 2020-0 7-19 00:00: 00 2022-04-19 00:00:00 2022-04-19 10:06:29 General acute hospital History of ectopic History of ectopic Disease Resolve d 2020-0 4-02 00:00: 00 2022-04-19 00:00:00 2022-04-19 10:06:32 General acute hospital 39 weeks gestation of 39 weeks gestation of Disease Resolve d 2021-0 2-15 00:00: 00 2021-05-17 00:00:00 2021-05-17 08:21:48 General acute hospital Ectopic without intrauteri ne Ectopic without intrauteri ne Disease Resolve d 2020-0 3-17 00:00: 00 2020-06-24 00:00:00 2020-06-24 11:40:20 General acute hospital Nexplanon removal Nexplanon removal Disease Resolve d 0 2-16 00:00: 00 2020-06-08 00:00:00 2021-10-08 00:44:25 General acute hospital Rubella immune Rubella immune Disease Resolve d 2013-0 1-24 00:00: 00 2016-05-10 00:00:00 2016-05-10 13:46:23 General acute hospital Insertion of implantabl e subdermal contracept yamila Insertion of implantabl e subdermal contracept yamila Disease Resolve d 04-17 00:00: 00 2016-05-10 00:00:00 2021-10-08 00:28:34 General acute hospital Anemia Anemia Disease Resolve d 04-01 00:00: 00 2016-05-10 00:00:00 2021-10-08 00:28:17 General acute hospital Encounter for routine gynecologi curtis examinatio n Encounter for routine gynecologi curtis examinatio n Disease Resolve d 03-30 00:00: 00 2016-05-10 00:00:00 2021-10-08 00:28:16 General acute hospital Allergies, Adverse Reactions, Alerts Allergy Name Allergy Type Status Severity Reaction(s) Onset Date Inactive Date Treating Clinician Comments Source NO KNOWN ALLERGIE S Drug Class Active General acute hospital Social History Social Habit Start Date Stop Date Quantity Comments Source ASSERTION Not Ying Queen - External Sexual orientation K castillo Queen - External History SDOH Alcohol Frequency [facility] History SDOH Alcohol Std Drinks [facility] History SDOH Alcohol Binge [facility] Gender identity Univ [facility] Alcoholic beverage intake 2024-04-11 00:00:00 2024-04-11 00:00:00 Current drinker of alcohol (finding) [facility] History of Social function 2024-02-24 00:00:00 2024-02-24 00:00:00 Ying Queen - External Alcohol Comment 2024-02-24 00:00:00 2024-02-24 00:00:00 occasionally Ying Zuniga External Alcohol intake 2022-12-02 00:00:00 2022-12-02 00:00:00 Current drinker of alcohol (finding) [facility] Exposure to SARS-CoV-2 (event) 2022-04-20 00:00:00 2022-04-30 10:31:00 Not sure [facility] Tobacco use and exposure 2021-12-06 00:00:00 2021-12-06 00:00:00 Smokeless tobacco non-user [facility] Sex 2021-07-03 01:43:03 2021-07-03 01:43:03 Female (finding) Ying Queen - External Sex assigned at 1995 00:00:00 1995 00:00:00 Ying Queen - External Smoking Status Start Date Stop Date Source Never smoked tobacco General acute hospital Medications Ordered Medication Name Filled Medication Name Start Date Stop Date Current Medication? Ordering Clinician Indication Dosage Frequency Signature (SIG) Comments Components Source NaCl 0.9% (NS) IV infusion 1,000 mL 04-11 06:45: 00 04-11 06:05 :01 No 1000mL at 999 mL/hr, Intravenou s, ONCE, 1 dose, On Sat04/11/24 at 0045, Routine General acute hospital butalbital- acetaminoph en-caff (ESGIC) 50-325-40 mg tablet 1 tablet 04-11 05:45: 00 04-11 06:06 :00 No 1{tbl} 1 tablet, Oral, ONCE, 1 dose, On Sat04/10/24 at 2345, ISAAK General acute hospital ketorolac (TORADOL) injection 30 mg 04-11 05:37: 00 04-11 06:06 :00 No 30mg 30 mg, Slow IV Push, ONCE, 1 dose, On Sat04/10/24 at 2345, ISAAK General acute hospital Metronidazo le (Flagyl) 500 MG oral Tablet 2023-03 205 00:00: 00 Yes [id number] 500mg Q.5D Take 1 tablet (500 mg total) by mouth 2 times daily. Ying Queen - Externa l azelastine 137 mcg (0.1 %) nasal spray 12-05 00:00: 00 Yes [id number] 1{spray } Use 1 Omak in each nostril in the morning and 1 Omak in the evening. Use in each nostril as directed General acute hospital bromphenira mine-pseudo ephedrine-D M (BROMFED DM) 2-30-10 mg/5 mL syrup 12-05 00:00: 00 Yes [id number] 10mL Take 10 mL by mouth 4 (four) times daily as needed for Congestion /Allergies , Cough or Cold symptoms. General acute hospital fluticasone propionate 50 mcg/actuati on nasal spray 12-05 00:00: 00 Yes [id number] 1{spray } Use 1 Omak in each nostril in the morning. General acute hospital methylPREDN ISolone (MEDROL, KRISTA,) 4 mg tablets 12-05 00:00: 00 Yes [id number] Take by mouth SEE-INSTRU CTIONS. follow package directions General acute hospital bromphenira mine-pseudo ephedrine-D M (BROMFED DM) 2-30-10 mg/5 mL syrup 12-02 00:00: 00 Yes [id number] 10mL Take 10 mL by mouth 4 (four) times daily as needed for Congestion /Allergies , Cough or Cold symptoms. General acute hospital azelastine 137 mcg (0.1 %) nasal spray 12-02 00:00: 00 Yes [id number] 1{spray } Use 1 Omak in each nostril in the morning and 1 Omak in the evening. Use in each nostril as directed General acute hospital fluticasone propionate 50 mcg/actuati on nasal spray 12-02 00:00: 00 Yes [id number] 1{spray } Use 1 Omak in each nostril in the morning. General acute hospital methylPREDN ISolone (MEDROL, KRISTA,) 4 mg tablets 12-02 00:00: 00 Yes [id number] Take by mouth SEE-INSTRU CTIONS. follow package directions General acute hospital metroNIDAZO LE 500 mg tablet 10-04 00:00: 00 10-05 04:59 :00 No [id number] 2000mg Take 4 tablets by mouth once now for 1 dose. General acute hospital copper (PARAGARD T 380A) IUD 1 Intra Uterine Device 04-30 17:45: 00 04-30 17:01 :00 No [id number] 1[facility]IUD} [facility] amoxicillin -clavulanat e (AUGMENTIN) 875-125 mg per tablet 2021-03 00:00: 00 02-01 05:59 :00 No [id number] 1{tbl} Take 1 tablet by mouth in the morning and 1 tablet in the evening. Do all this for 7 days. General acute hospital phenazopyri dine 100 mg tablet 2021-03 00:00: 00 01-27 04:59 :00 No [id number] 200mg Take 2 tablets by mouth in the morning and 2 tablets at noon and 2 tablets in the evening. Do all this for 2 days. General acute hospital levonorgest rel-ethinyl estradiol (SRONYX) 0.1-20 mg-mcg per tablet 9-14 00:00: 00 10-02 00:00 :00 No [id number] 1{tbl} Take 1 tablet by mouth in the morning. General acute hospital ondansetron 4 mg disintegrat ing tablet 4-11 00:00: 00 10-02 00:00 :00 No [id number] 4mg Take 1 tablet by mouth every 8 (eight) hours as needed for Nausea and Vomiting (N/V). General acute hospital norethindro ne 0.35 mg tablet 3-30 00:00: 00 10-02 00:00 :00 No [id number] 1{tbl} Take 1 tablet by mouth daily. General acute hospital Immunizations Ordered Immunization Name Filled Immunization Name Date Status Comments Source TD, NOS 2023-01-18 00:00:00 Completed [facility] SARS-COV-2 COVID-19 MAURICIO/J&J VACCINE 2023-01-18 00:00:00 Completed [facility] TDAP 2023-01-18 00:00:00 Completed [facility] HPV 2023-01-18 00:00:00 Completed [facility] HPV9 2023-01-18 00:00:00 Completed [facility] DTaP, Unspecified Formulation 2023-01-18 00:00:00 Completed [facility] DPT/HIB 2023-01-18 00:00:00 Completed [facility] HEPATITIS A 2023-01-18 00:00:00 Completed [facility] Hep B, Unspecified Formulation 2023-01-18 00:00:00 Completed [facility] Meningococcal Polysaccharide (groups A, C, Y and W-135) conjugate vaccine (MCV4P) 2023-01-18 00:00:00 Completed [facility] MMR 2023-01-18 00:00:00 Completed [facility] IPV 2023-01-18 00:00:00 Completed [facility] Poliovirus, Live, Oral, Trivalent 2023-01-18 00:00:00 Completed [facility] TD, NOS 2021-07-03 00:00:00 Completed [facility] SARS-COV-2 COVID-19 MAURICIO/J&J VACCINE 2021-07-03 00:00:00 Completed [facility] TDAP 2021-07-03 00:00:00 Completed [facility] HPV 2021-07-03 00:00:00 Completed [facility] HPV9 2021-07-03 00:00:00 Completed [facility] DTaP, Unspecified Formulation 2021-07-03 00:00:00 Completed [facility] DPT/HIB 2021-07-03 00:00:00 Completed [facility] HEPATITIS A 2021-07-03 00:00:00 Completed [facility] Hep B, Unspecified Formulation 2021-07-03 00:00:00 Completed [facility] Meningococcal Polysaccharide (groups A, C, Y and W-135) conjugate vaccine (MCV4P) 2021-07-03 00:00:00 Completed [facility] MMR 2021-07-03 00:00:00 Completed [facility] IPV 2021-07-03 00:00:00 Completed [facility] Poliovirus, Live, Oral, Trivalent 2021-07-03 00:00:00 Completed [facility] TD, NOS 2021-05-29 00:00:00 Completed [facility] SARS-COV-2 COVID-19 MAURICIO/J&J VACCINE 2021-05-29 00:00:00 Completed [facility] TDAP 2021-05-29 00:00:00 Completed [facility] HPV 2021-05-29 00:00:00 Completed [facility] HPV9 2021-05-29 00:00:00 Completed [facility] DTaP, Unspecified Formulation 2021-05-29 00:00:00 Completed [facility] DPT/HIB 2021-05-29 00:00:00 Completed [facility] HEPATITIS A 2021-05-29 00:00:00 Completed [facility] Hep B, Unspecified Formulation 2021-05-29 00:00:00 Completed [facility] Meningococcal Polysaccharide (groups A, C, Y and W-135) conjugate vaccine (MCV4P) 2021-05-29 00:00:00 Completed [facility] MMR 2021-05-29 00:00:00 Completed [facility] IPV 2021-05-29 00:00:00 Completed [facility] Poliovirus, Live, Oral, Trivalent 2021-05-29 00:00:00 Completed [facility] HPV9 2021-05-17 00:00:00 Completed [facility] HPV9 2021-05-17 00:00:00 Completed [facility] HPV9 2021-05-17 00:00:00 Completed [facility] HPV9 2021-05-17 00:00:00 Completed [facility] HPV9 2021-05-17 00:00:00 Completed [facility] HPV9 2021-05-17 00:00:00 Completed [facility] HPV9 2021-05-17 00:00:00 Completed [facility] HPV9 2021-05-17 00:00:00 Completed [facility] HPV9 2021-05-17 00:00:00 Completed [facility] HPV9 2021-05-17 00:00:00 Completed [facility] HPV9 2021-05-17 00:00:00 Completed [facility] HPV9 2021-05-17 00:00:00 Completed [facility] HPV9 2021-05-17 00:00:00 Completed [facility] HPV9 2021-05-17 00:00:00 Completed [facility] HPV9 2021-05-17 00:00:00 Completed [facility] HPV9 2021-05-17 00:00:00 Completed [facility] HPV9 2021-05-17 00:00:00 Completed [facility] HPV9 2021-05-17 00:00:00 Completed [facility] HPV9 2021-05-17 00:00:00 Completed [facility] HPV9 2021-05-17 00:00:00 Completed [facility] HPV9 2021-05-17 00:00:00 Completed [facility] TD, NOS 2021-03-15 00:00:00 Completed [facility] SARS-COV-2 COVID-19 MAURICIO/J&J VACCINE 2021-03-15 00:00:00 Completed [facility] TDAP 2021-03-15 00:00:00 Completed [facility] HPV 2021-03-15 00:00:00 Completed [facility] DTaP, Unspecified Formulation 2021-03-15 00:00:00 Completed [facility] DPT/HIB 2021-03-15 00:00:00 Completed [facility] HEPATITIS A 2021-03-15 00:00:00 Completed [facility] Hep B, Unspecified Formulation 2021-03-15 00:00:00 Completed [facility] Meningococcal Polysaccharide (groups A, C, Y and W-135) conjugate vaccine (MCV4P) 2021-03-15 00:00:00 Completed [facility] MMR 2021-03-15 00:00:00 Completed [facility] IPV 2021-03-15 00:00:00 Completed [facility] Poliovirus, Live, Oral, Trivalent 2021-03-15 00:00:00 Completed [facility] TDAP 2021-02-22 00:00:00 Completed [facility] TDAP 2021-02-22 00:00:00 Completed [facility] TDAP 2021-02-22 00:00:00 Completed [facility] TDAP 2021-02-22 00:00:00 Completed [facility] TDAP 2021-02-22 00:00:00 Completed [facility] TDAP 2021-02-22 00:00:00 Completed [facility] TDAP 2021-02-22 00:00:00 Completed [facility] TDAP 2021-02-22 00:00:00 Completed [facility] TDAP 2021-02-22 00:00:00 Completed [facility] TDAP 2021-02-22 00:00:00 Completed [facility] TDAP 2021-02-22 00:00:00 Completed [facility] TDAP 2021-02-22 00:00:00 Completed [facility] TDAP 2021-02-22 00:00:00 Completed [facility] TDAP 2021-02-22 00:00:00 Completed [facility] TDAP 2021-02-22 00:00:00 Completed [facility] TDAP 2021-02-22 00:00:00 Completed [facility] TDAP 2021-02-22 00:00:00 Completed [facility] TDAP 2021-02-22 00:00:00 Completed [facility] TDAP 2021-02-22 00:00:00 Completed [facility] TDAP 2021-02-22 00:00:00 Completed [facility] TDAP 2021-02-22 00:00:00 Completed [facility] TD, NOS 2020-10-27 00:00:00 Completed [facility] SARS-COV-2 COVID-19 MAURICIO/J&J VACCINE 2020-10-27 00:00:00 Completed [facility] HPV 2020-10-27 00:00:00 Completed [facility] DTaP, Unspecified Formulation 2020-10-27 00:00:00 Completed [facility] DPT/HIB 2020-10-27 00:00:00 Completed [facility] HEPATITIS A 2020-10-27 00:00:00 Completed [facility] Hep B, Unspecified Formulation 2020-10-27 00:00:00 Completed [facility] Meningococcal Polysaccharide (groups A, C, Y and W-135) conjugate vaccine (MCV4P) 2020-10-27 00:00:00 Completed [facility] MMR 2020-10-27 00:00:00 Completed [facility] IPV 2020-10-27 00:00:00 Completed [facility] Poliovirus, Live, Oral, Trivalent 2020-10-27 00:00:00 Completed [facility] TDAP 2020-10-27 00:00:00 Completed [facility] SARS-COV-2 COVID-19 MAURICIO/J&J VACCINE 2020-07-26 00:00:00 Completed [facility] SARS-COV-2 COVID-19 MAURICIO/J&J VACCINE 2020-07-26 00:00:00 Completed [facility] SARS-COV-2 COVID-19 MAURICIO/J&J VACCINE 2020-07-26 00:00:00 Completed [facility] SARS-COV-2 COVID-19 MAURICIO/J&J VACCINE 2020-07-26 00:00:00 Completed [facility] SARS-COV-2 COVID-19 MAURICIO/J&J VACCINE 2020-07-26 00:00:00 Completed [facility] SARS-COV-2 COVID-19 MAURICIO/J&J VACCINE 2020-07-26 00:00:00 Completed [facility] SARS-COV-2 COVID-19 MAURICIO/J&J VACCINE 2020-07-26 00:00:00 Completed [facility] SARS-COV-2 COVID-19 MAURICIO/J&J VACCINE 2020-07-26 00:00:00 Completed [facility] SARS-COV-2 COVID-19 MAURICIO/J&J VACCINE 2020-07-26 00:00:00 Completed [facility] SARS-COV-2 COVID-19 MAURICIO/J&J VACCINE 2020-07-26 00:00:00 Completed [facility] SARS-COV-2 COVID-19 MAURICIO/J&J VACCINE 2020-07-26 00:00:00 Completed [facility] SARS-COV-2 COVID-19 MAURICIO/J&J VACCINE 2020-07-26 00:00:00 Completed [facility] SARS-COV-2 COVID-19 MAURICIO/J&J VACCINE 2020-07-26 00:00:00 Completed [facility] SARS-COV-2 COVID-19 MAURICIO/J&J VACCINE 2020-07-26 00:00:00 Completed [facility] SARS-COV-2 COVID-19 MAURICIO/J&J VACCINE 2020-07-26 00:00:00 Completed [facility] SARS-COV-2 COVID-19 MAURICIO/J&J VACCINE 2020-07-26 00:00:00 Completed [facility] SARS-COV-2 COVID-19 MAURICIO/J&J VACCINE 2020-07-26 00:00:00 Completed [facility] SARS-COV-2 COVID-19 MAURICIO/J&J VACCINE 2020-07-26 00:00:00 Completed [facility] SARS-COV-2 COVID-19 MAURICIO/J&J VACCINE 2020-07-26 00:00:00 Completed [facility] SARS-COV-2 COVID-19 MAURICIO/J&J VACCINE 2020-07-26 00:00:00 Completed [facility] SARS-COV-2 COVID-19 MAURICIO/J&J VACCINE 2020-07-26 00:00:00 Completed [facility] HPV 2013-11-11 00:00:00 Completed [facility] HPV 2013-11-11 00:00:00 Completed [facility] HPV 2013-11-11 00:00:00 Completed [facility] HPV 2013-11-11 00:00:00 Completed [facility] HPV 2013-11-11 00:00:00 Completed [facility] HPV 2013-11-11 00:00:00 Completed [facility] HPV 2013-11-11 00:00:00 Completed [facility] HPV 2013-11-11 00:00:00 Completed [facility] HPV 2013-11-11 00:00:00 Completed [facility] HPV 2013-11-11 00:00:00 Completed [facility] HPV 2013-11-11 00:00:00 Completed [facility] HPV 2013-11-11 00:00:00 Completed [facility] HPV 2013-11-11 00:00:00 Completed [facility] HPV 2013-11-11 00:00:00 Completed [facility] HPV 2013-11-11 00:00:00 Completed [facility] HPV 2013-11-11 00:00:00 Completed [facility] HPV 2013-11-11 00:00:00 Completed [facility] HPV 2013-11-11 00:00:00 Completed [facility] HPV 2013-11-11 00:00:00 Completed [facility] HPV 2013-11-11 00:00:00 Completed [facility] HPV 2013-11-11 00:00:00 Completed HPV 2013-09-11 00:00:00 Completed [facility] HPV 2013-09-11 00:00:00 Completed [facility] HPV 2013-09-11 00:00:00 Completed [facility] HPV 2013-09-11 00:00:00 Completed [facility] HPV 2013-09-11 00:00:00 Completed [facility] HPV 2013-09-11 00:00:00 Completed [facility] HPV 2013-09-11 00:00:00 Completed [facility] HPV 2013-09-11 00:00:00 Completed [facility] HPV 2013-09-11 00:00:00 Completed [facility] HPV 2013-09-11 00:00:00 Completed [facility] HPV 2013-09-11 00:00:00 Completed [facility] HPV 2013-09-11 00:00:00 Completed [facility] HPV 2013-09-11 00:00:00 Completed [facility] HPV 2013-09-11 00:00:00 Completed [facility] HPV 2013-09-11 00:00:00 Completed [facility] HPV 2013-09-11 00:00:00 Completed [facility] HPV 2013-09-11 00:00:00 Completed [facility] HPV 2013-09-11 00:00:00 Completed [facility] HPV 2013-09-11 00:00:00 Completed [facility] HPV 2013-09-11 00:00:00 Completed [facility] HPV 2013-09-11 00:00:00 Completed [facility] HPV 2013-05-10 00:00:00 Completed [facility] HPV 2013-05-10 00:00:00 Completed [facility] HPV 2013-05-10 00:00:00 Completed [facility] HPV 2013-05-10 00:00:00 Completed [facility] HPV 2013-05-10 00:00:00 Completed [facility] HPV 2013-05-10 00:00:00 Completed [facility] HPV 2013-05-10 00:00:00 Completed [facility] HPV 2013-05-10 00:00:00 Completed [facility] HPV 2013-05-10 00:00:00 Completed [facility] HPV 2013-05-10 00:00:00 Completed [facility] HPV 2013-05-10 00:00:00 Completed [facility] HPV 2013-05-10 00:00:00 Completed [facility] HPV 2013-05-10 00:00:00 Completed [facility] HPV 2013-05-10 00:00:00 Completed [facility] HPV 2013-05-10 00:00:00 Completed [facility] HPV 2013-05-10 00:00:00 Completed [facility] HPV 2013-05-10 00:00:00 Completed [facility] HPV 2013-05-10 00:00:00 Completed [facility] HPV 2013-05-10 00:00:00 Completed [facility] HPV 2013-05-10 00:00:00 Completed [facility] HPV 2013-05-10 00:00:00 Completed Meningococcal Polysaccharide (groups A, C, Y and W-135) conjugate vaccine (MCV4P) 2012-10-16 00:00:00 Completed [facility] Meningococcal Polysaccharide (groups A, C, Y and W-135) conjugate vaccine (MCV4P) 2012-10-16 00:00:00 Completed [facility] Meningococcal Polysaccharide (groups A, C, Y and W-135) conjugate vaccine (MCV4P) 2012-10-16 00:00:00 Completed [facility] Meningococcal Polysaccharide (groups A, C, Y and W-135) conjugate vaccine (MCV4P) 2012-10-16 00:00:00 Completed [facility] Meningococcal Polysaccharide (groups A, C, Y and W-135) conjugate vaccine (MCV4P) 2012-10-16 00:00:00 Completed Td 2010-10-28 00:00:00 Completed [facility] Td 2010-10-28 00:00:00 Completed [facility] Td 2010-10-28 00:00:00 Completed [facility] Td 2010-10-28 00:00:00 Completed [facility] Td 2010-10-28 00:00:00 Completed [facility] Td 2010-10-28 00:00:00 Completed [facility] Td 2010-10-28 00:00:00 Completed [facility] Td 2010-10-28 00:00:00 Completed [facility] Td 2010-10-28 00:00:00 Completed [facility] Td 2010-10-28 00:00:00 Completed [facility] Td 2010-10-28 00:00:00 Completed [facility] TD, NOS 2010-10-28 00:00:00 Completed [facility] TD, NOS 2010-10-28 00:00:00 Completed [facility] TD, NOS 2010-10-28 00:00:00 Completed [facility] TD, NOS 2010-10-28 00:00:00 Completed [facility] TD, NOS 2010-10-28 00:00:00 Completed [facility] TD, NOS 2010-10-28 00:00:00 Completed [facility] TD, NOS 2010-10-28 00:00:00 Completed [facility] TD, NOS 2010-10-28 00:00:00 Completed [facility] TD, NOS 2010-10-28 00:00:00 Completed [facility] TD, NOS 2010-10-28 00:00:00 Completed [facility] HEPATITIS A 2009-09-16 00:00:00 Completed [facility] HEPATITIS A 2009-09-16 00:00:00 Completed [facility] HEPATITIS A 2009-09-16 00:00:00 Completed [facility] HEPATITIS A 2009-09-16 00:00:00 Completed [facility] HEPATITIS A 2009-09-16 00:00:00 Completed HEPATITIS A 2008-07-28 00:00:00 Completed [facility] Meningococcal Polysaccharide (groups A, C, Y and W-135) conjugate vaccine (MCV4P) 2008-07-28 00:00:00 Completed [facility] MMR 2008-07-28 00:00:00 Completed [facility] TDAP 2008-07-28 00:00:00 Completed [facility] HEPATITIS A 2008-07-28 00:00:00 Completed [facility] Meningococcal Polysaccharide (groups A, C, Y and W-135) conjugate vaccine (MCV4P) 2008-07-28 00:00:00 Completed [facility] MMR 2008-07-28 00:00:00 Completed [facility] TDAP 2008-07-28 00:00:00 Completed [facility] HEPATITIS A 2008-07-28 00:00:00 Completed [facility] Meningococcal Polysaccharide (groups A, C, Y and W-135) conjugate vaccine (MCV4P) 2008-07-28 00:00:00 Completed [facility] MMR 2008-07-28 00:00:00 Completed [facility] TDAP 2008-07-28 00:00:00 Completed [facility] HEPATITIS A 2008-07-28 00:00:00 Completed [facility] Meningococcal Polysaccharide (groups A, C, Y and W-135) conjugate vaccine (MCV4P) 2008-07-28 00:00:00 Completed [facility] MMR 2008-07-28 00:00:00 Completed [facility] TDAP 2008-07-28 00:00:00 Completed [facility] HEPATITIS A 2008-07-28 00:00:00 Completed Meningococcal Polysaccharide (groups A, C, Y and W-135) conjugate vaccine (MCV4P) 2008-07-28 00:00:00 Completed MMR 2008-07-28 00:00:00 Completed TDAP 2008-07-28 00:00:00 Completed DTaP, Unspecified Formulation 2002-04-01 00:00:00 Completed [facility] MMR 2002-04-01 00:00:00 Completed [facility] IPV 2002-04-01 00:00:00 Completed [facility] DTaP, Unspecified Formulation 2002-04-01 00:00:00 Completed [facility] MMR 2002-04-01 00:00:00 Completed [facility] IPV 2002-04-01 00:00:00 Completed [facility] DTaP, Unspecified Formulation 2002-04-01 00:00:00 Completed [facility] MMR 2002-04-01 00:00:00 Completed [facility] IPV 2002-04-01 00:00:00 Completed [facility] DTaP, Unspecified Formulation 2002-04-01 00:00:00 Completed [facility] MMR 2002-04-01 00:00:00 Completed [facility] IPV 2002-04-01 00:00:00 Completed [facility] DTaP, Unspecified Formulation 2002-04-01 00:00:00 Completed MMR 2002-04-01 00:00:00 Completed IPV 2002-04-01 00:00:00 Completed DPT/HIB 1996 00:00:00 Completed [facility] Hep B, Unspecified Formulation 1996 00:00:00 Completed [facility] Poliovirus, Live, Oral, Trivalent 1996 00:00:00 Completed [facility] DPT/HIB 1996 00:00:00 Completed [facility] Hep B, Unspecified Formulation 1996 00:00:00 Completed [facility] Poliovirus, Live, Oral, Trivalent 1996 00:00:00 Completed [facility] DPT/HIB 1996 00:00:00 Completed [facility] Hep B, Unspecified Formulation 1996 00:00:00 Completed [facility] Poliovirus, Live, Oral, Trivalent 1996 00:00:00 Completed [facility] DPT/HIB 1996 00:00:00 Completed [facility] Hep B, Unspecified Formulation 1996 00:00:00 Completed [facility] Poliovirus, Live, Oral, Trivalent 1996 00:00:00 Completed [facility] DPT/HIB 1996 00:00:00 Completed Hep B, Unspecified Formulation 1996 00:00:00 Completed Poliovirus, Live, Oral, Trivalent 1996 00:00:00 Completed Hep B, Unspecified Formulation 1996 00:00:00 Completed [facility] Hep B, Unspecified Formulation 1996 00:00:00 Completed [facility] Hep B, Unspecified Formulation 1996 00:00:00 Completed [facility] Hep B, Unspecified Formulation 1996 00:00:00 Completed [facility] Hep B, Unspecified Formulation 1996 00:00:00 Completed Vital Signs Vital Name Observation Time Observation Value Comments S ource Body height 2024-06-03 20:36:00 165.1 cm Ying Seybold - External Body weight 2024-06-03 20:36:00 130.636 kg Ying Seybold - External BMI 2024-06-03 20:36:00 47.93 kg/m2 Ying Seybold - External Systolic blood pressure 2024-04-11 07:00:00 140 mm[Hg] [facility] Diastolic blood pressure 2024-04-11 07:00:00 80 mm[Hg] [facility] Heart rate 2024-04-11 07:00:00 90 /min [facility] Body temperature 2024-04-11 07:00:00 37 Emmanuelle [facility] Oxygen saturation in Arterial blood by Pulse oximetry 2024-04-11 07:00:00 97 /min [facility] Respiratory rate 2024-04-11 06:06:00 18 /min [facility] Body height 2024-04-11 04:36:00 160 cm [facility] Body weight 2024-04-11 04:36:00 124.739 kg [facility] BMI 2024-04-11 04:36:00 48.71 kg/m2 [facility] Systolic blood pressure 2024-02-24 20:39:00 118 mm[Hg] [...] blood pressure 2022-12-03 00:15:00 118 mm[Hg] [facility] Diastolic blood pressure 2022-12-03 00:15:00 79 mm[Hg] [facility] Heart rate 2022-12-03 00:15:00 99 /min [facility] Body temperature 2022-12-03 00:15:00 37.44 Emmanuelle [facility] Respiratory rate 2022-12-03 00:15:00 15 /min [facility] Body height 2022-12-03 00:15:00 165.1 cm [facility] Body weight 2022-12-03 00:15:00 138.256 kg [facility] BMI 2022-12-03 00:15:00 50.72 kg/m2 [facility] Oxygen saturation in Arterial blood by Pulse oximetry 2022-12-03 00:15:00 98 /min [facility] Systolic blood pressure 2022-10-02 18:30:00 136 mm[Hg] [facility] Diastolic blood pressure 2022-10-02 18:30:00 75 mm[Hg] [facility] Heart rate 2022-10-02 18:30:00 80 /min [facility] Body temperature 2022-10-02 18:30:00 36.83 Emmanuelle [facility] Respiratory rate 2022-10-02 18:30:00 18 /min [facility] Body height 2022-10-02 18:30:00 162.6 cm [facility] Body weight 2022-10-02 18:30:00 132.904 kg [facility] BMI 2022-10-02 18:30:00 50.29 kg/m2 [facility] Systolic blood pressure 2022-04-30 16:31:00 133 mm[Hg] [facility] Diastolic blood pressure 2022-04-30 16:31:00 84 mm[Hg] [facility] Heart rate 2022-04-30 16:31:00 76 /min [facility] Body temperature 2022-04-30 16:31:00 35.83 Emmanuelle [facility] Respiratory rate 2022-04-30 16:31:00 18 /min [facility] Body height 2022-04-30 16:31:00 162.6 cm [facility] Body weight 2022-04-30 16:31:00 131.815 kg [facility] BMI 2022-04-30 16:31:00 49.88 kg/m2 [facility] Systolic blood pressure 2022-04-19 15:39:00 119 mm[Hg] [facility] Diastolic blood pressure 2022-04-19 15:39:00 76 mm[Hg] [facility] Heart rate 2022-04-19 15:39:00 81 /min [facility] Body temperature 2022-04-19 15:39:00 36.61 Emmanuelle [facility] Respiratory rate 2022-04-19 15:39:00 18 /min [facility] Body height 2022-04-19 15:39:00 162.6 cm [facility] Body weight 2022-04-19 15:39:00 131.044 kg [facility] BMI 2022-04-19 15:39:00 49.59 kg/m2 [facility] Systolic blood pressure 2022-03-03 15:17:00 125 mm[Hg] [facility] Diastolic blood pressure 2022-03-03 15:17:00 87 mm[Hg] [facility] Heart rate 2022-03-03 15:17:00 74 /min [facility] Body temperature 2022-03-03 15:17:00 36.83 Emmanuelle [facility] Respiratory rate 2022-03-03 15:17:00 18 /min [facility] Body height 2022-03-03 15:17:00 162.6 cm [facility] Body weight 2022-03-03 15:17:00 113.399 kg [facility] BMI 2022-03-03 15:17:00 42.91 kg/m2 [facility] Oxygen saturation in Arterial blood by Pulse oximetry 2022-03-03 15:17:00 99 /min [facility] Systolic blood pressure 2022-02-14 20:28:00 138 mm[Hg] [facility] Diastolic blood pressure 2022-02-14 20:28:00 85 mm[Hg] [facility] Heart rate 2022-02-14 20:28:00 66 /min [facility] Body temperature 2022-02-14 20:28:00 36.33 Emmanuelle [facility] Respiratory rate 2022-02-14 20:28:00 20 /min [facility] Body height 2022-02-14 20:28:00 162.6 cm [facility] Body weight 2022-02-14 20:28:00 124.059 kg [facility] BMI 2022-02-14 20:28:00 46.95 kg/m2 [facility] Systolic blood pressure 2022-01-24 22:13:00 144 mm[Hg] Had to try 3x before getting a reading [facility] Diastolic blood pressure 2022-01-24 22:13:00 98 mm[Hg] Had to try 3x before getting a reading [facility] Heart rate 2022-01-24 22:13:00 97 /min [facility] Body temperature 2022-01-24 22:13:00 36.89 Emmanuelle [facility] Respiratory rate 2022-01-24 22:13:00 18 /min [facility] Body height 2022-01-24 22:13:00 162.6 cm [facility] Body weight 2022-01-24 22:13:00 125.919 kg [facility] BMI 2022-01-24 22:13:00 47.65 kg/m2 [facility] Oxygen saturation in Arterial blood by Pulse oximetry 2022-01-24 22:13:00 98 /min [facility] Systolic blood pressure 2021-12-06 13:30:00 124 mm[Hg] [facility] Diastolic blood pressure 2021-12-06 13:30:00 54 mm[Hg] [facility] Heart rate 2021-12-06 13:30:00 72 /min [facility] Body temperature 2021-12-06 13:30:00 36.28 Emmanuelle [facility] Respiratory rate 2021-12-06 13:30:00 18 /min [facility] Body height 2021-12-06 13:30:00 165.1 cm [facility] Body weight 2021-12-06 13:30:00 130.296 kg [facility] BMI 2021-12-06 13:30:00 47.80 kg/m2 [facility] Procedures Procedure Date / Time Performed Performing Clinician Source COMP. METABOLIC PANEL (83116) 2024-04-11 06:05:00 Carmine Monroe [facility] CBC WITH DIFF 2024-04-11 06:05:00 Carmine Monroe [facility] INFLUENZA A/B RSV COVID NAAT 2024-04-11 06:05:00 Carmine Monroe [facility] POCT TEST 2024-04-11 05:12:00 Julia Monroe [facility] POCT SARS-COV-2 ANTIGEN (BINAX NOW) 2022-12-03 00:31:00 Jessika Manrique [facility] CBC WITH DIFF 2022-10-02 19:30:00 Jennifer Puri [facility] GLYCOSYLATED HEMOGLOBIN (A1C) 2022-10-02 19:30:00 Jennifer Puri [facility] HCV ANTIBODY 2022-10-02 19:30:00 Jennifer Puri [facility] GC & CHLAMYDIA AMPLIFIED ASSAY 2022-10-02 19:30:00 Jennifer Puri [facility] HIV 1/2 AG-AB WITH REFLEX 2022-10-02 19:30:00 Jennifer Puri [facility] TRICHOMONAS AMPLIFIED ASSAY 2022-10-02 19:30:00 Jennifer Puri [facility] PAP SMEAR-LIQUID BASED-CP 2022-10-02 19:30:00 Jennifer Puri [facility] SYPHILIS IGG/IGM 2022-10-02 19:30:00 Jennifer Puri [facility] PATIENT FINANCIAL POLICY 2022-10-02 18:08:46 Doctor Unassigned, [place] [facility] POCT TEST 2022-04-30 16:35:00 Jonel Adams [facility] DISCLOSURE AND CONSENT, MEDICAL AND SURGICAL PROCEDURES 2022-04-30 06:01:00 Doctor Unassigned, [place] [facility] POCT TEST 2022-04-19 15:41:00 Jonel Adams [facility] BASIC METABOLIC PANEL (NA, K, CL, CO2, GLUCOSE, BUN, CREATININE, CA) 2022-03-03 15:57:00 Tiana Antonio [facility] ETHANOL 2022-03-03 15:57:00 Tiana Antonio [facility] CBC WITH DIFF 2022-03-03 15:57:00 Tiana Antonio [facility] URINALYSIS 2022-03-03 15:57:00 Tiana Antonio [facility] URINE DRUG (IMMUNOASSAY) - COMPREHENSIVE DRUG SCREEN W/O REFLEX 2022-03-03 15:57:00 Tiana Antonio [facility] HB ECG ROUTINE & RHYTHM STRIP 2022-03-03 15:55:48 Tiana Antonio [facility] POCT TEST 2022-02-14 20:48:00 Jonel Adams [facility] ASSIGNMENT OF BENEFITS 2022-02-14 19:38:06 Docto r Unassigned, [place] [facility] POCT URINALYSIS 2022-01-24 22:31:00 Jessika Manrique [facility] POCT TEST 2021-12-06 15:36:00 Jonel Adams [facility] Encounters Start Date/Time End Date/Time Encounter Type Admission Type Attending [facility] Care Department Encounter ID Source 2021-01-22 06:46:10 Emergency [facility] [id number] General acute hospital 2024-06-30 14:45:00 2024-06-30 14:45:00 Outpatient OZZIE RIVERA [facility] RODRIGUE[facility] [id number] [facility] 2024-06-23 15:30:00 2024-06-23 15:30:00 Outpatient R [facility] [id number] General acute hospital 2024-06-04 00:00:00 2024-06-04 00:00:00 Outpatient GARCIAJOEYBRADEN YING RODIRGUEZ [id number] [facility] 2024-06-03 15:30:00 2024-06-03 15:30:00 Outpatient AMANDAJAZFRANKIE GONZALEZ YING RODRIGUEZ [id number] [facility] 2024-06-03 00:00:00 2024-06-03 00:00:00 Outpatient MD YING RAMÍREZ [id number] [facility] 2024-06-02 14:30:00 2024-06-02 14:30:00 Outpatient R ESTEVAN ADAMS [facility] [id number] General acute hospital 2024-06-02 00:00:00 2024-06-02 00:00:00 Outpatient BRADEN GUERRIER YING RODRIGUEZ [id number] [facility] 2024-04-28 23:58:00 2024-04-29 02:03:00 Emergency Emergency PRESLEY MUNOZ [facility] General Medicine [id number] [facility] 2024-04-27 08:00:00 2024-04-27 08:00:00 Outpatient TISH LOCKWOOD [id number] [facility] 2024-04-24 14:45:00 2024-04-24 14:45:00 Outpatient JEB DAVIS [id number] [facility] 2024-04-17 13:45:00 2024-04-17 13:45:00 Outpatient YAN GRAHAM [facility] [id number] General acute hospital 2024-04-13 08:15:00 2024-04-13 08:15:00 Outpatient JEB DAVIS [id number] [facility] 2024-04-10 22:41:00 2024-04-11 01:27:00 Emergency X CARMINE MONROE [facility] ERT [id number] General acute hospital 2024-04-10 22:41:00 2024-04-11 01:27:00 Emergency Carmine Monroe [facility] 1.2.840.114 350.1.13.10 4.2.7.2.686 [id number] General acute hospital 2024-03-16 15:00:00 2024-03-16 15:00:00 Outpatient MARILOU JARAMILLO [id number] [facility] 2024-03-12 15:00:00 2024-03-12 15:00:00 Outpatient JEB DAVIS [id number] [facility] 2024-02-25 10:30:00 2024-02-25 10:30:00 Outpatient MARILOU JARAMILLO [id number] [facility] 2024-02-24 13:45:00 2024-02-24 13:45:00 Outpatient JEB DAVIS [id number] [facility] 2023-09-18 14:00:00 2023-09-18 14:00:00 Outpatient YAN GRAHAM [facility] [id number] General acute hospital 2023-08-30 15:15:00 2023-08-30 15:15:00 Outpatient R ESTEVAN ADAMS [facility] [id number] General acute hospital 2023-08-29 10:45:00 2023-08-29 10:45:00 Outpatient YAN GRAHAM [facility] [id number] General acute hospital 2023-02-21 15:00:00 2023-02-21 15:00:00 Outpatient R ESTEVAN ADAMS [facility] [id number] General acute hospital 2023-01-28 00:00:00 2023-01-28 00:00:00 Outpatient GC_GCBZW_Lulu mendoza_S PRIV PRIV [id number] [facility] 2023-01-22 08:30:00 2023-01-22 08:30:00 Outpatient R ESTEVAN ADAMS [facility] [id number] General acute hospital 2023-01-19 00:00:00 2023-01-19 00:00:00 Outpatient GC_GCBZW_Ka diyala_S PRIV PRIV [id number] [facility] 2023-01-18 00:00:00 2023-01-18 00:00:00 Outpatient GC_GCBZW_Ka diyala_S PRIV PRIV [id number] [facility] 2023-01-18 00:00:00 2023-01-18 00:00:00 Telephone Estevan Adams [facility] ASSISTANT SUPERINTENDENT [facility]NAL & [facility] 1.2.840.114 350.1.13.10 4.2.7.2.686 [id number] 107 [id number] General acute hospital 2023-01-14 14:00:00 2023-01-14 14:00:00 Outpatient R JUDE S, OMKAR ALEKS-JANETT S, OMKAR [facility] [id number] General acute hospital 2022-12-04 00:00:00 2022-12-04 00:00:00 Telephone Jessika Manrique [facility] 1.2.840.114 350.1.13.10 4.2.7.2.686 [id number] General acute hospital 2022-12-02 19:00:00 2022-12-02 19:35:03 Outpatient R JESSIKA MANRIQUE [facility] [id number] General acute hospital 2022-12-02 19:00:00 2022-12-02 19:20:00 Urgent Care Jessika Manrique Unknown, Attending [facility] 1.2.840.114 350.1.13.10 4.2.7.2.686 [id number] General acute hospital 2022-10-04 00:00:00 2022-10-04 00:00:00 Telephone Jennifer Puri [facility] ASSISTANT SUPERINTENDENT [facility] & CHILD [facility] 1.2.840.114 350.1.13.10 4.2.7.2.686 [id number] 107 [id number] General acute hospital 2022-10-02 13:30:00 2022-10-02 14:31:55 Outpatient R JENNIFER PURI [facility] [id number] General acute hospital 2022-10-02 13:30:00 2022-10-02 14:31:55 Office Visit Jennifer Puri [facility] ASSISTANT SUPERINTENDENT [facility] CHILD [facility] 1.2.840.114 350.1.13.10 4.2.7.2.686 [id number] 107 [id number] General acute hospital 2022-10-02 00:00:00 2022-10-02 00:00:00 Orders Only Doctor Unassigned, [place] [facility] 1.2.840.114 350.1.13.10 4.2.7.2.686 [id number] General acute hospital 2022-07-04 13:15:00 2022-07-04 13:15:00 Outpatient SIRIA MAGANA [facility] [id number] General acute hospital 2022-07-04 13:15:00 2022-07-04 13:15:00 Outpatient SIRIA MAGANA [facility] [id number] General acute hospital 2022-07-04 13:00:00 2022-07-04 13:00:00 Outpatient SIRIA MAGANA [facility] [id number] General acute hospital 2022-04-30 10:00:00 2022-04-30 10:30:00 Office Visit Estevan Adams [facility] ASSISTANT SUPERINTENDENT [facility] & CHILD [facility] 1.2.840.114 350.1.13.10 4.2.7.2.686 [id number] 107 [id number] General acute hospital 2022-04-30 10:00:00 2022-04-30 10:00:00 Outpatient R ESTEVAN ADAMS [facility] [id number] General acute hospital 2022-04-30 00:00:00 2022-04-30 00:00:00 Orders Only Doctor Unassigned, [place] [facility] 1.2840.114 350.1.13.10 4.2.7.2.686 [id number] General acute hospital 2022-04-19 09:30:00 2022-04-19 10:05:06 Outpatient R ESTEVAN ADAMS [facility] [id number] General acute hospital 2022-04-19 09:30:00 2022-04-19 10:05:06 Office Visit Estevan Adams [facility] ASSISTANT SUPERINTENDENT [facility] CHILD [facility] 1.2.840.114 350.1.13.10 4.2.7.2.686 [id number] 107 [id number] General acute hospital 2022-04-19 00:00:00 2022-04-19 00:00:00 Letter (Out) Estevan Adams [facility] ASSISTANT SUPERINTENDENT [facility] CHILD [facility] 1.2.840.114 350.1.13.10 4.2.7.2.686 [id number] 107 [id number] General acute hospital 2022-03-07 09:45:00 2022-03-07 09:45:00 Outpatient R SIRIA ANDERSON [facility] [id number] General acute hospital 2022-03-03 09:22:00 2022-03-03 12:44:00 Emergency X TIANA ANTONIO [facility] ERT [id number] General acute hospital 2022-03-03 09:22:00 2022-03-03 12:44:00 Emergency Paco Tiana Rita [facility] 1.0.114 350.1.13.10 4.2.7.2.686 [id number] General acute hospital 2022-02-18 00:00:00 2022-02-18 00:00:00 Refill Estevan Adams [facility] ASSISTANT SUPERINTENDENT [facility] & CHILD [facility] 1.0.114 350.1.13.10 4.2.7.2.686 [id number] 107 [id number] General acute hospital 2022-02-14 13:30:00 2022-02-14 14:35:37 Nurse Visit Visit, Naun-Rmp Nurse Jennifer Puri [facility]/GYN [facility] CHILD [facility] 1.0.114 350.1.13.10 4.2.7.2.686 [id number] 107 [id number] General acute hospital 2022-02-14 14:30:00 2022-02-14 14:30:00 Outpatient JENNIFER BALL [facility] [id number] General acute hospital 2022-02-14 13:30:00 2022-02-14 13:30:00 Outpatient JENNIFER BALL [facility] [id number] General acute hospital 2022-02-14 00:00:00 2022-02-14 00:00:00 Orders Only Doctor Unassigned, [place] [facility] 1..114 350.1.13.10 4.2.7.2.686 [id number] General acute hospital 2022-02-14 00:00:00 2022-02-14 00:00:00 Telephone Siria Anderson [facility] 1..114 350.1.13.10 4.2.7.2.686 [id number] 107 [id number] General acute hospital 2022-02-06 00:00:00 2022-02-06 00:00:00 Telephone Estevan Adams [facility] ASSISTANT SUPERINTENDENT [facility] & CHILD [facility] 1.2840.114 350.1.13.10 4.2.7.2.686 [id number] 107 [id number] General acute hospital 2022-01-24 17:20:00 2022-01-24 17:28:54 Outpatient R JESSIKA MANRIQUE [facility] [id number] General acute hospital 2022-01-24 17:20:00 2022-01-24 17:28:54 Urgent Care Jessika Manrique Unknown, Attending [facility] 1.840.114 350.1.13.10 4.2.7.2.686 [id number] General acute hospital 2022-01-01 00:00:00 2022-01-01 00:00:00 Refill Estevan Adams [facility] ASSISTANT SUPERINTENDENT [facility] CHILD [facility] 1.840.114 350.1.13.10 4.2.7.2.686 [id number] 107 [id number] General acute hospital 2022-01-01 00:00:00 2022-01-01 00:00:00 Telephone Estevan Adams [facility] ASSISTANT SUPERINTENDENT [facility] CHILD [facility] 1.840.114 350.1.13.10 4.2.7.2.686 [id number] 107 [id number] General acute hospital 2021-12-29 00:00:00 2021-12-29 00:00:00 Refill Estevan Adams [facility] ASSISTANT SUPERINTENDENT [facility] CHILD [facility] 1.2.840.114 350.1.13.10 4.2.7.2.686 [id number] 107 [id number] General acute hospital 2021-12-06 08:15:00 2021-12-06 08:54:24 Office Visit Puneet Adamsilola C [facility] ASSISTANT SUPERINTENDENT [facility] & CHILD [facility] 1.2.840.114 350.1.13.10 4.2.7.2.686 [id number] 107 [id number] General acute hospital 2021-12-06 08:15:00 2021-12-06 08:54:24 Outpatient R NICOLASEVETTEESTEVAN [facility] [id number] General acute hospital 2021-12-06 08:15:00 2021-12-06 08:15:00 Outpatient R NICOLASEVETTEPUNEETESTEVAN [facility] [id number] General acute hospital 2021-11-22 15:15:00 2021-11-22 15:15:00 Outpatient R ESTEVAN ADAMS [facility] [id number] General acute hospital 2021-11-21 00:00:00 2021-11-21 00:00:00 Telephone Siria Anderson [facility] ASSISTANT SUPERINTENDENT [facility] CHILD [facility] 1.2.840.114 350.1.13.10 4.2.7.2.686 [id number] 107 [id number] General acute hospital 2021-11-20 00:00:00 2021-11-20 00:00:00 Telephone Siria Anderson [facility] ASSISTANT SUPERINTENDENT [facility] CHILD [facility] 1.2.840.114 350.1.13.10 4.2.7.2.686 [id number] 107 [id number] General acute hospital 2021-09-03 00:00:00 2021-09-03 00:00:00 Refill Siria Anderson [facility] ASSISTANT SUPERINTENDENT [facility] & CHILD [facility] 1.2.840.114 350.1.13.10 4.2.7.2.686 [id number] 107 [id number] General acute hospital 2021-07-04 12:45:00 2021-07-04 13:31:36 Office Visit Siria Anderson [facility] ASSISTANT SUPERINTENDENT [facility] 1.2.840.114 350.1.13.10 4.2.7.2.686 [id number] 107 [id number] General acute hospital 2021-07-04 12:45:00 2021-07-04 13:31:36 Outpatient SIRIA MAGANA [facility] [id number] General acute hospital 2021-07-04 12:45:00 2021-07-04 12:45:00 Outpatient SIRIA MAGANA [facility] [id number] General acute hospital 2021-07-04 00:00:00 2021-07-04 00:00:00 Telephone Maisha West [facility] 1.2.840.114 350.1.13.10 4.2.7.2.686 [id number] General acute hospital 2021-07-03 18:20:00 2021-07-03 18:53:48 Outpatient Divya MANRIQUE JESSIKA [facility] [id number] General acute hospital 2021-07-03 18:20:00 2021-07-03 18:53:48 Urgent Care Burton Jessika [facility] 1.2.840.114 350.1.13.10 4.2.7.2.686 [id number] 370 [id number] General acute hospital 2021-07-03 18:20:00 2021-07-03 18:53:48 Outpatient Divya MANRIQUE [facility] [id number] General acute hospital 2021-07-03 09:30:00 2021-07-03 09:30:00 Outpatient EASTON RIOJAS [id number] [place] 2021-07-03 08:15:00 2021-07-03 08:15:00 Outpatient EASTON RIOJAS [id number] [place] 2021-07-03 00:00:00 2021-07-03 00:00:00 Patient Secure Msg Siria Anderson [facility] ASSISTANT SUPERINTENDENT [facility] MATERNAL & CHILD [facility] 1..840.114 350.1.13.10 4.2.7.2.686 [id number] 107 [id number] General acute hospital 2021-06-21 13:00:00 2021-06-21 14:53:50 Outpatient R LUDA ANDERSONNESSASTEPHANIE [facility] [id number] General acute hospital 2021-06-21 13:00:00 2021-06-21 14:53:50 Office Visit Siria Anderson [facility] ASSISTANT SUPERINTENDENT [facility] & CHILD [facility] 1..840.114 350.1.13.10 4.2.7.2.686 [id number] 107 [id number] General acute hospital 2021-06-21 13:00:00 2021-06-21 14:53:50 Outpatient R LUDA ANDERSONKALI [facility] [id number] General acute hospital 2021-05-31 08:00:00 2021-05-31 09:04:36 Outpatient R SIRAI ANDERSON [facility] [id number] General acute hospital 2021-05-31 08:00:00 2021-05-31 09:04:36 Routine Visit Siria Anderson [facility] ASSISTANT SUPERINTENDENT [facility] & CHILD [facility] 1..840.114 350.1.13.10 4.2.7.2.686 [id number] 107 [id number] General acute hospital 2021-05-29 00:00:00 2021-05-29 00:00:00 Patient Secure Siria Paulino [facility] ASSISTANT SUPERINTENDENT [facility] & CHILD [facility] 1.2.840.114 350.1.13.10 4.2.7.2.686 [id number] 107 [id number] General acute hospital 2021-05-19 00:00:00 2021-05-19 00:00:00 Telephone Estevan Adams [facility] ASSISTANT SUPERINTENDENT [facility] CHILD [facility] 1.2840.114 350.1.13.10 4.2.7.2.686 [id number] 107 [id number] General acute hospital 2021-05-17 13:00:00 2021-05-17 13:00:00 Nurse Visit Nurse, Naun Lima Exp [facility] [place] [facility] SUPERINTENDENT [facility] 1.2840.114 350.1.13.10 4.2.7.2.686 [id number] 107 [id number] General acute hospital 2021-05-17 13:00:00 2021-05-17 08:46:02 Outpatient R SIRIA ANDERSON [facility] [id number] General acute hospital 2021-05-17 08:00:00 2021-05-17 08:45:55 Nurse Visit Visit, HowardRmchp [facility] [place] [facility] SUPERINTENDENT [facility] 1.840.114 350.1.13.10 4.2.7.2.686 [id number] 107 [id number] General acute hospital 2021-05-09 17:42:00 2021-05-12 16:52:00 Inpatient P [facility] RE[facility] [id number] General acute hospital 2021-05-09 17:42:00 2021-05-12 16:52:00 Hospital Encounter Jodee Almazan [facility] 1.20.114 350.1.13.10 4.2.7.2.686 [id number] General acute hospital 2021-05-10 17:00:00 2021-05-10 18:47:00 Surgery Zbigniew Fernandez [facility] 1.2840.114 350.1.13.10 4.2.7.2.686 [id number] General acute hospital 2021-05-10 09:54:00 2021-05-10 18:34:00 Anesthesia Event Glen Mcgraw, Leonel [facility] 1..114 350.1.13.10 4.2.7.2.686 [id number] General acute hospital 2021-05-09 13:15:00 2021-05-09 14:00:22 Outpatient R SIRIA ANDERSON [facility] [id number] General acute hospital 2021-05-09 13:15:00 2021-05-09 14:00:22 Routine Visit Siria Anderson [facility] ASSISTANT SUPERINTENDENT [facility] MATERNAL & CHILD [facility] 1..114 350.1.13.10 4.2.7.2.686 [id number] 107 [id number] General acute hospital 2021-05-02 15:30:00 2021-05-02 15:58:07 Outpatient R LUDA ANDERSONKALI [facility] [id number] General acute hospital 2021-05-02 15:30:00 2021-05-02 15:58:07 Routine Visit Siria Anderson [facility] ASSISTANT SUPERINTENDENT [facility] MATERNAL & CHILD [facility] 1..114 350.1.13.10 4.2.7.2.686 [id number] 107 [id number] General acute hospital 2021-05-02 00:00:00 2021-05-02 00:00:00 Abstract Siria Anderson [facility] ASSISTANT SUPERINTENDENT [facility] MATERNAL & CHILD [facility] 1..114 350.1.13.10 4.2.7.2.686 [id number] 107 [id number] General acute hospital 2021-04-28 09:30:00 2021-04-28 10:00:00 Pocket Machine Operator Visit Ultrasound, Katelyn Whiting [facility] ASSISTANT SUPERINTENDENT [facility] MATERNAL & CHILD [facility] 1..114 350.1.13.10 4.2.7.2.686 [id number] General acute hospital 2021-04-28 09:30:00 2021-04-28 09:30:00 Outpatient P [facility] [id number] General acute hospital 2021-04-28 09:30:00 2021-04-28 09:30:00 Outpatient P [facility] [id number] General acute hospital 2021-04-28 09:30:00 2021-04-28 09:30:00 Outpatient P KATELYN CRUZ SHANNON [facility] [id number] General acute hospital 2021-04-25 15:30:00 2021-04-25 16:19:38 Outpatient R SIRIA ANDERSON [facility] [id number] General acute hospital 2021-04-25 15:30:00 2021-04-25 16:19:38 Routine Visit Siria Anderson [facility] ASSISTANT SUPERINTENDENT [facility]ERNAL & [facility] 1.2.840.114 350.1.13.10 4.2.7.2.686 [id number] 107 [id number] General acute hospital 2021-04-25 15:30:00 2021-04-25 15:30:00 Outpatient R SIRIA ANDERSON [facility] [id number] General acute hospital 2021-04-24 15:30:00 2021-04-24 15:30:00 Outpatient P [facility] [id number] General acute hospital 2021-04-21 00:00:00 2021-04-21 00:00:00 Telephone Siria Anderson [facility] ASSISTANT SUPERINTENDENT [facility] & CHILD [facility] .2.840.114 350.1.13.10 4.2.7.2.686 [id number] 107 [id number] General acute hospital 2021-04-19 13:15:00 2021-04-19 13:15:00 Outpatient R SIRIA ANDERSON [facility] [id number] General acute hospital 2021-04-19 13:15:00 2021-04-19 13:15:00 Pocket Machine Operator Visit Lab, Ang-Rmchp AndersonSiria [facility] ASSISTANT SUPERINTENDENT [facility]ERNAL & [facility] 1.2.840.114 350.1.13.10 4.2.7.2.686 [id number] 107 [id number] General acute hospital 2021-04-19 13:00:00 2021-04-19 13:00:00 Outpatient P [facility] [id number] General acute hospital 2021-04-19 00:00:00 2021-04-19 00:00:00 Telephone Siria Anderson [facility] ASSISTANT SUPERINTENDENT [facility]ERNAL [facility] 1.2.840.114 350.1.13.10 4.2.7.2.686 [id number] 107 [id number] General acute hospital 2021-04-18 15:30:00 2021-04-18 16:11:31 Outpatient SIRIA MAGANA [facility] [id number] General acute hospital 2021-04-18 15:30:00 2021-04-18 16:11:31 Routine Visit Siria Anderson [facility] ASSISTANT SUPERINTENDENT [facility] & CHILD [facility] 1.2.840.114 350.1.13.10 4.2.7.2.686 [id number] 107 [id number] General acute hospital 2021-04-18 15:30:00 2021-04-18 16:11:31 Outpatient R SIRIA ANDERSON [facility] [id number] General acute hospital 2021-04-18 15:30:00 2021-04-18 15:30:00 Outpatient SIRIA MAGANA [facility] [id number] General acute hospital 2021-04-11 13:00:00 2021-04-11 14:15:13 Outpatient SIRIA MAGANA [facility] [id number] General acute hospital 2021-04-11 13:00:00 2021-04-11 14:15:13 Outpatient R SIRIA ANDERSON [facility] [id number] General acute hospital 2021-04-11 13:00:00 2021-04-11 14:15:13 Routine Visit Justin Siria Stokes [facility] ASSISTANT SUPERINTENDENT [facility] & CHILD [facility] 1..114 350.1.13.10 4.2.7.2.686 [id number] 107 [id number] General acute hospital 2021-04-11 13:00:00 2021-04-11 13:00:00 Outpatient R LUDA ANDERSONKALI [facility] [id number] General acute hospital 2021-03-29 00:00:00 2021-03-29 00:00:00 Telephone Anderson, Siria [facility] ASSISTANT SUPERINTENDENT [facility] & CHILD [facility] 1.84.114 350.1.13.10 4.2.7.2.686 [id number] 107 [id number] General acute hospital 2021-03-22 14:30:00 2021-03-22 14:51:40 Outpatient R LUDA ANDERSONKALI [facility] [id number] General acute hospital 2021-03-22 14:30:00 2021-03-22 14:51:40 Routine Visit Siria Anderson Antonio [facility] 1.84.114 350.1.13.10 4.2.7.2.686 [id number] 107 [id number] General acute hospital 2021-03-22 14:30:00 2021-03-22 14:30:00 Outpatient R LUDA ANDERSONKAIL [facility] [id number] General acute hospital 2021-03-22 14:00:00 2021-03-22 14:30:00 Pocket Machine Operator Visit Ultrasound, [facility] SUPERINTENDENT [facility] & CHILD [facility] 1..114 350.1.13.10 4.2.7.2.686 [id number] General acute hospital 2021-03-22 00:00:00 2021-03-22 00:00:00 Abstract Siria Anderson [facility] ASSISTANT SUPERINTENDENT [facility] MATERNAL & CHILD [facility] 1.2.840.114 350.1.13.10 4.2.7.2.686 [id number] 107 [id number] General acute hospital 2021-03-15 00:00:00 2021-03-15 00:00:00 Patient Secure Msg AndersonSiria [facility] ASSISTANT SUPERINTENDENT [facility] & CHILD [facility] 1.2.840.114 350.1.13.10 4.2.7.2.686 [id number] 107 [id number] General acute hospital 2021-03-14 00:00:00 2021-03-14 00:00:00 Telephone Siria Anderson [facility] ASSISTANT SUPERINTENDENT [facility] & CHILD [facility] 1.2.840.114 350.1.13.10 4.2.7.2.686 [id number] 107 [id number] General acute hospital 2021-03-13 00:00:00 2021-03-13 00:00:00 Aaron Dykes [facility] ASSISTANT SUPERINTENDENT [facility] MATERNAL & CHILD [facility] [[email or web address]] 1.2.840.114 350.1.13.10 4.2.7.2.686 [id number] General acute hospital 2021-03-13 00:00:00 2021-03-13 00:00:00 Refill Siria Anderson [facility] ASSISTANT SUPERINTENDENT [facility] & CHILD [facility] 1.2.840.114 350.1.13.10 4.2.7.2.686 [id number] General acute hospital 2021-03-10 00:00:00 2021-03-10 00:00:00 Siria Lechuga [facility] ASSISTANT SUPERINTENDENT [facility] & CHILD [facility] 1.2.840.114 350.1.13.10 4.2.7.2.686 [id number] General acute hospital 2021-03-10 00:00:00 2021-03-10 00:00:00 Aaron Dykes [facility] ASSISTANT SUPERINTENDENT [facility] & CHILD [facility] [[email or web address]] 1.2.840.114 350.1.13.10 4.2.7.2.686 [id number] General acute hospital 2021-03-09 15:45:00 2021-03-09 16:18:23 Outpatient SIRIA MAGANA [facility] [id number] General acute hospital 2021-03-09 15:45:00 2021-03-09 16:18:23 Routine Visit Siria Anderson [facility] ASSISTANT SUPERINTENDENT [facility] & CHILD [facility] 1.2.840.114 350.1.13.10 4.2.7.2.686 [id number] General acute hospital 2021-03-09 00:00:00 2021-03-09 00:00:00 Aaron Dykes [facility] ASSISTANT SUPERINTENDENT [facility] & CHILD [facility] [[email or web address]] 1.2.840.114 350.1.13.10 4.2.7.2.686 [id number] General acute hospital 2021-03-09 00:00:00 2021-03-09 00:00:00 Siria Lechuga [facility] ASSISTANT SUPERINTENDENT [facility] & CHILD [facility] 1.2.840.114 350.1.13.10 4.2.7.2.686 [id number] General acute hospital 2021-03-08 15:45:00 2021-03-08 15:45:00 Outpatient SIRIA MAGANA [facility] [id number] General acute hospital 2021-02-22 10:00:00 2021-02-22 11:57:26 Outpatient R AARON ALICEA [facility] [id number] General acute hospital 2021-02-22 09:59:09 2021-02-22 11:57:26 Routine Visit Provider, Aaron Barlow [facility] ASSISTANT SUPERINTENDENT [facility]ILD [facility] 1.2840.114 350.1.13.10 4.2.7.2.686 [id number] 107 [id number] General acute hospital 2021-02-13 10:52:00 2021-02-13 11:22:00 Pocket Machine Operator Visit Ultrasound, Silvana Ruff [facility] ASSISTANT SUPERINTENDENT [facility]ILD [facility] 1.2.840.114 350.1.13.10 4.2.7.2.686 [id number] General acute hospital 2021-02-13 10:45:00 2021-02-13 10:45:00 Outpatient SILVANA WESLEY SANGEETA [facility] [id number] General acute hospital 2021-02-13 00:00:00 2021-02-13 00:00:00 Case Management Bo Rivera [facility] ASSISTANT SUPERINTENDENT [facility] 1.2.840.114 350.1.13.10 4.2.7.2.686 [id number] General acute hospital 2021-02-03 00:00:00 2021-02-03 00:00:00 Telephone Aaron Alicea [facility] ASSISTANT SUPERINTENDENT [facility] CHILD [email or web address] 1.84.114 350.1.13.10 4.2.7.2.686 [id number] General acute hospital 2021-02-01 10:45:00 2021-02-01 11:09:09 Outpatient BO MIRANDA [facility] [id number] General acute hospital 2021-02-01 10:04:55 2021-02-01 11:09:09 Routine Visit Provider, Ang-Rmchp Bo Jorgensen [facility] ASSISTANT SUPERINTENDENT [facility] 1.2.840.114 350.1.13.10 4.2.7.2.686 [id number] General acute hospital 2021-01-31 00:00:00 2021-01-31 00:00:00 Refill Onofre [facility] 1.2.840.114 350.1.13.10 4.2.7.2.686 [id number] General acute hospital 2021-01-30 00:00:00 2021-01-30 00:00:00 Telephone Aaron Alicea [facility] ASSISTANT SUPERINTENDENT [facility] 1.2.840.114 350.1.13.10 4.2.7.2.686 [id number] General acute hospital 2021-01-29 00:00:00 2021-01-29 00:00:00 RefSiria Webb [facility] ASSISTANT SUPERINTENDENT [facility] 1.2.840.114 350.1.13.10 4.2.7.2.686 [id number] General acute hospital 2021-01-29 00:00:00 2021-01-29 00:00:00 Refill Onofre [facility] 1..840.114 350.1.13.10 4.2.7.2.686 [id number] General acute hospital 2021-01-19 14:40:00 2021-01-19 15:06:44 Outpatient R AMAYA PEÑA [facility] [id number] General acute hospital 2021-01-19 14:22:57 2021-01-19 15:06:44 Urgent Care Ebrahim, Rania Green, [facility] 1.2.840.114 350.1.13.10 4.2.7.2.686 [id number] General acute hospital 2021-01-04 00:00:00 2021-01-04 00:00:00 Telephone Siria Anderson [facility] ASSISTANT SUPERINTENDENT [facility] & CHILD [facility] 1.2.840.114 350.1.13.10 4.2.7.2.686 [id number] General acute hospital 2021-01-03 00:00:00 2021-01-03 00:00:00 Telephone AndersonSiria [facility] ASSISTANT SUPERINTENDENT [facility]ILD [facility] 1.2.840.114 350.1.13.10 4.2.7.2.686 [id number] General acute hospital 2021-01-03 00:00:00 2021-01-03 00:00:00 Telephone Luda Andersonkali [facility] ASSISTANT SUPERINTENDENT [facility] 1.2.840.114 350.1.13.10 4.2.7.2.686 [id number] 107 [id number] General acute hospital 2021-01-02 10:45:39 2021-01-02 11:10:03 Routine Visit Provider, Aaron Barlow [facility] ASSISTANT SUPERINTENDENT [facility] CHILD [facility] 1.2.840.114 350.1.13.10 4.2.7.2.686 [id number] General acute hospital 2021-01-02 10:45:00 2021-01-02 10:45:00 Outpatient R [facility] [id number] General acute hospital 2020-12-21 10:52:25 2020-12-21 11:26:21 Office Visit Palmira Phillips, Yair Borjas [facility] 1.284.114 350.1.13.10 4.2.7.2.686 [id number] General acute hospital 2020-12-21 10:30:00 2020-12-21 10:30:00 Outpatient P [facility] [id number] General acute hospital 2020-12-19 08:20:30 2020-12-19 09:35:30 Pocket Machine Operator Visit Ultrasound, Gianni Virk [facility] ASSISTANT SUPERINTENDENT [facility] 1.2.840.114 350.1.13.10 4.2.7.2.686 [id number] General acute hospital 2020-12-19 08:00:00 2020-12-19 08:00:00 Outpatient P [facility] [id number] General acute hospital 2020-12-19 00:00:00 2020-12-19 00:00:00 Abstract Siria Anderson [facility] ASSISTANT SUPERINTENDENT [facility] 1.2.840.114 350.1.13.10 4.2.7.2.686 [id number] General acute hospital 2020-12-07 00:00:00 2020-12-07 00:00:00 Telephone Siria Anderson [facility] ASSISTANT SUPERINTENDENT [facility] & CHILD [facility] 1.2.840.114 350.1.13.10 4.2.7.2.686 [id number] General acute hospital 2020-12-05 10:15:59 2020-12-05 10:54:56 Routine Visit Siria Anderson [facility] ASSISTANT SUPERINTENDENT [facility] CHILD [facility] 1.2.840.114 350.1.13.10 4.2.7.2.686 [id number] General acute hospital 2020-12-05 10:15:59 2020-12-05 10:54:56 Routine Visit Siria Anderson [facility] ASSISTANT SUPERINTENDENT [facility]ILD [facility] 1.2.840.114 350.1.13.10 4.2.7.2.686 [id number] General acute hospital 2020-12-05 10:15:00 2020-12-05 10:15:00 Outpatient R SIRIA ANDERSON [facility] [id number] General acute hospital 2020-11-07 08:42:18 2020-11-07 09:41:48 Routine Visit Siria Anderson [facility] ASSISTANT SUPERINTENDENT [facility]ILD [facility] 1.840.114 350.1.13.10 4.2.7.2.686 [id number] General acute hospital 2020-11-07 08:45:00 2020-11-07 08:45:00 Outpatient SIRIA MAGANA [facility] [id number] General acute hospital 2020-11-01 00:00:00 2020-11-01 00:00:00 Telephone Siria Anderson [facility] ASSISTANT SUPERINTENDENT [facility] CHILD [facility] 1..114 350.1.13.10 4.2.7.2.686 [id number] General acute hospital 2020-10-27 00:00:00 2020-10-27 00:00:00 Patient Secure Msg Doctor Unassigned, [place] [facility] ASSISTANT SUPERINTENDENT [facility] 1.20.114 350.1.13.10 4.2.7.2.686 [id number] General acute hospital 2020-10-27 00:00:00 2020-10-27 00:00:00 Telephone Siria Anderson [facility] ASSISTANT SUPERINTENDENT [facility]ILD [facility] 1.2840.114 350.1.13.10 4.2.7.2.686 [id number] General acute hospital 2020-10-26 00:00:00 2020-10-26 00:00:00 Telephone Siria Anderson [facility] ASSISTANT SUPERINTENDENT [facility] 1.20.114 350.1.13.10 4.2.7.2.686 [id number] General acute hospital 2020-10-19 13:59:38 2020-10-19 14:29:38 Pocket Machine Operator Visit Ultrasound, Cristin Jones [facility] ASSISTANT SUPERINTENDENT [facility] CHILD [facility] 1..114 350.1.13.10 4.2.7.2.686 [id number] General acute hospital 2020-10-19 14:00:00 2020-10-19 14:00:00 Outpatient P [facility] [id number] General acute hospital 2020-10-19 00:00:00 2020-10-19 00:00:00 Abstract Siria Anderson [facility] ASSISTANT SUPERINTENDENT [facility] 1..114 350.1.13.10 4.2.7.2.686 [id number] General acute hospital 2020-10-10 08:57:06 2020-10-10 09:57:15 Initial Visit Siria Anderson [facility] ASSISTANT SUPERINTENDENT [facility] 1.2.114 350.1.13.10 4.2.7.2.686 [id number] General acute hospital 2020-10-10 08:30:00 2020-10-10 08:30:00 Outpatient R [facility] [id number] General acute hospital 2020-10-10 00:00:00 2020-10-10 00:00:00 Orders Only Doctor Unassigned, [place] [facility] 1..114 350.1.13.10 4.2.7.2.686 [id number] General acute hospital 2020-06-24 16:00:00 2020-06-24 16:00:00 Outpatient Divya MICHELE [facility] [id number] General acute hospital 2020-06-24 11:27:53 2020-06-24 11:49:24 [facility] 1.2840.114 350.1.13.10 4.2.7.2.686 [id number] General acute hospital 2020-06-24 11:00:00 2020-06-24 11:00:00 Outpatient Divya MICHELE [facility] [id number] General acute hospital 2020-06-14 00:00:00 2020-06-14 00:00:00 Patient Outreach Reji Cruz [facility] 1.0.114 350.1.13.10 4.2.7.2.686 [id number] General acute hospital 2020-06-08 19:38:00 2020-06-09 12:50:00 Emergency Ann, Emma [place] 1.2840.114 350.1.13.10 4.2.7.2.686 [id number] General acute hospital 2020-06-08 18:59:31 2020-06-08 19:19:31 Urgent Care Provider, [facility] Saadia Lovett [facility] Office [facility] 1.2840.114 350.1.13.10 4.2.7.2.686 [id number] General acute hospital 2020-06-08 18:40:00 2020-06-08 18:40:00 Outpatient SAADIA RAZO [facility] [id number] General acute hospital 2020-05-24 13:16:03 2020-05-24 14:05:26 Office Visit Delano Nelson [facility] 1.2.840.114 350.1.13.10 4.2.7.2.686 [id number] General acute hospital 2020-05-24 13:00:00 2020-05-24 13:00:00 [id number] 2020-05-19 13:00:00 2020-05-19 13:00:00 Outpatient R YOVANY DIOR [facility] [id number] General acute hospital 2020-05-19 00:00:00 2020-05-19 00:00:00 Orders Only Doctor Unassigned, [place] [facility] 1..840.114 350.1.13.10 4.2.7.2.686 [id number] General acute hospital 2020-03-28 19:14:32 2020-03-28 19:51:01 Urgent Care Amaya Peña [facility] 1..840.114 350.1.13.10 4.2.7.2.686 [id number] General acute hospital 2020-03-28 19:20:00 2020-03-28 19:20:00 Outpatient R [facility] [id number] General acute hospital 2020-03-28 00:00:00 2020-03-28 00:00:00 Letter (Out) Doctor Unassigned, [place] [facility] 1.840.114 350.1.13.10 4.2.7.2.686 [id number] General acute hospital 2020-01-15 08:15:00 2020-01-15 08:15:00 Outpatient JAIME WREN [facility] [id number] General acute hospital 2019-03-12 14:26:14 2019-03-12 23:59:00 Outpatient JAIME CLEMENT [facility] [id number] General acute hospital Results Test Description Test Time Test Comments Results Result Co mments Source [facility] with [id number] 06:29:27* Test Item Value Reference Range Interpretation [...] g/dL 31.6-35.1 L RDW-SD (test code = 91823-8) 39.6 fL 39.0-49.9 RDW-CV (test code = 788-0) 13.7 % 12.0-15.5 PLT (test code = 777-3) 426 166-358 H MPV (test code = 62034-9) 10.1 fL 9.5-12.9 NRBC/100 WBC (test code = 0025307988) 0.0 0.0-10.0 NRBC x10^3 (test code = 9561951519) See_Comment [Automated messa ge] The system which generated this result transmitted reference range: 10*3/?L. The reference range was not used to interpret this result as normal/abnormal. GRAN MAT (NEUT) % (test code = 770-8) 55.7 % IMM GRAN % (test code = 2709425424) 0.40 % LYMPH % (test code = 736-9) 37.1 % MONO % (test code = 5905-5) 5.6 % EOS % (test code = 713-8) 0.8 % BASO % (test code = 706-2) 0.4 % GRAN MAT x10^3(ANC) (test code = 3311429628) 5.34 10*3/uL 1.88-7.09 IMM GRAN x10^3 (test code = 0165694381) 0.04 10*3/uL 0.00-0.06 LYMPH x10^3 (test code = 731-0) 3.56 10*3/uL 1.32-3.29 H MONO x10^3 (test code = 742-7) 0.54 10*3/uL 0.33-0.92 EOS x10^3 (test code = 711-2) 0.08 10*3/uL 0.03-0.39 BASO x10^3 (test code = 704-7) 0.04 10*3/uL 0.01-0.07 Lab Interpretation (test code = 66255-1) [id number] 05:12:00* Test Item Value Reference Range Interpretation Comme nts POCT PREG (test code = 1605) Negative On board controls acceptable with C Line (test code = 3574) Yes POCT PREG LOT # (test code = 3575) [id number] POCT PREG TEST DATE ( test code = 3576) 2025-03-09 Lab Interpretation (test cod e = 54478-6) Normal [facility] SARS-COV-2 ANTIGEN (BINAX NOW)2022-12-03 00:31:00* Test Item Value Reference Range Interpretation Comme nts POCT SARS-COV-2 ANTIGEN (test code = 88391-7) Not Detected Not Detected On board controls acceptable with C Line (test code = 3574) Yes VASHTI (test code = VASHTI) accurate developme nt and interpretation of all internal controls Lab Interpretation (test code = 69767-1) [facility] SYPHILIS [id number] 16:24:15* Test Item Value Reference Range Interpretation Comme nts Syphilis IgG/IgM (test code = 92986-8) Non-reactive Non-reactive VASHTI (test code = VASHTI) Non-reactive - No serologic evidence of T. pallidum infection. Cannot exclude incubating or early syphilis. Submit a second specimen in 2-4 weeks if syphilis is clinically suspected. Equivocal - Further testing to follow. Reactive - Further testing to follow. Lab Interpretation (test code = 24383-7) [facility] SYPHILIS [id number] 16:24:15* Test Item Value Reference Range Interpretation Comme nts Syphilis IgG/IgM (test code = 70430-4) Non-reactive Non-reactive VASHTI (test code = VASHTI) Non-reactive - No serologic evidence of T. pallidum infection. Cannot exclude incubating or early syphilis. Submit a second specimen in 2-4 weeks if syphilis is clinically suspected. Equivocal - Further testing to follow. Reactive - Further testing to follow. Lab Interpretation (test code = 80944-4) [facility]A1C)2022-10-03 07:09:19* Test Item Value Reference Range Interpretation Comme nts HGB A1C (test code = 4548-4) 5.3 % 4.0-5.7 VASHTI (test code = VASHTI) Reference RangesNormal: <5.7%Prediabetes: 5.7 - 6.4%Diabetes: > 6.5% Lab Interpretation (test code = 35016-8) Normal [facility]A1C)2022-10-03 07:09:19* Test Item Value Reference Range Interpretation Comme nts HGB A1C (test code = 4548-4) 5.3 % 4.0-5.7 VASHTI (test code = VASHTI) Reference RangesNormal: <5.7%Prediabetes: 5.7 - 6.4%Diabetes: > 6.5% Lab Interpretation (test code = 72665-2) Normal [facility] 1/2 AG-AB WITH [id number] 06:09:39* Test Item Value Reference Range Interpretation Comme [facility] HIV Semi-quantitative (test code = 04861-1) 0.09 Negative VASHTI (test code = VASHTI) Non-reactive for HIV-1 antigen and HIV-1/HIV-2 antibodies. ?No laboratory evidence of HIV infection. ?Repeat in 2-4 weeks if acute HIV infection is suspected. [facility] [id number] 06:09:39* Test Item Value Reference Range Interpretation Comme nts HCV Ab (test code = 75924-0) Negative HCV Semi-Quantitative (test code = 21388-2) 0.03 [facility] 1/2 AG-AB WITH [id number] 06:09:39* Test Item Value Reference Range Interpretation Comme nts HIV Semi-quantitative (test code = 31773-4) 0.09 Negative VASHTI (test code = VASHTI) Non-reactive for HIV-1 antigen and HIV-1/HIV-2 antibodies. ?No laboratory evidence of HIV infection. ?Repeat in 2-4 weeks if acute HIV infection is suspected. [facility] [id number] 06:09:39* Test Item Value Reference Range Interpretation Comme nts HCV Ab (test code = 37443-2) Negative HCV Semi-Quantitative (test code = 76365-0) 0.03 [facility] WITH [id number] 05:35:17* Test Item Value Reference Range Interpretation [...] 31.7 g/dL 31.6-35.1 RDW-SD (test code = 46538-2) 38.7 fL 39.0-49.9 L RDW-CV (test code = 788-0) 13.0 % 12.0-15.5 PLT (test code = 777-3) 442 See_Comment H [Automated messa ge] The system which generated this result transmitted reference range: 166 - 358 10*3/?L. The reference range was not used to interpret this result as normal/abnormal. MPV (test code = 35276-8) 10.9 fL 9.5-12.9 NRBC/100 WBC (test code = 4336047787) 0.0 See_Comment [Automated me ssage] The system which generated this result transmitted reference range: 0.0 - 10.0 /100 WBCs. The reference range was not used to interpret this result as normal/abnormal. NRBC x10^3 (test code = 3105764501) See_Comment [Automated messa ge] The system which generated this result transmitted reference range: 10*3/?L. The reference range was not used to interpret this result as normal/abnormal. GRAN MAT (NEUT) % (test code = 770-8) 61.3 % IMM GRAN % (test code = 7489833556) 0.20 % LYMPH % (test code = 736-9) 32.8 % MONO % (test code = 5905-5) 4.5 % EOS % (test code = 713-8) 0.9 % BASO % (test code = 706-2) 0.3 % GRAN MAT x10^3(ANC) (test code = 3941941176) 6.11 10*3/uL 1.88-7.09 IMM GRAN x10^3 (test code = 6035484575) 0.00-0.06 LYMPH x10^3 (test code = 731-0) 3.27 10*3/uL 1.32-3.29 MONO x10^3 (test code = 742-7) 0.45 10*3/uL 0.33-0.92 EOS x10^3 (test code = 711-2) 0.09 10*3/uL 0.03-0.39 BASO x10^3 (test code = 704-7) 0.03 10*3/uL 0.01-0.07 Lab Interpretation (test code = 47075-7) Abnormal [facility] WITH [id number] 05:35:17* Test Item Value Reference Range Interpretation [...] 31.7 g/dL 31.6-35.1 RDW-SD (test code = 75309-1) 38.7 fL 39.0-49.9 L RDW-CV (test code = 788-0) 13.0 % 12.0-15.5 PLT (test code = 777-3) 442 See_Comment H [Automated messa ge] The system which generated this result transmitted reference range: 166 - 358 10*3/?L. The reference range was not used to interpret this result as normal/abnormal. MPV (test code = 67347-6) 10.9 fL 9.5-12.9 NRBC/100 WBC (test code = 6990706723) 0.0 See_Comment [Automated [employer] ssage] The system which generated this result transmitted reference range: 0.0 - 10.0 /100 WBCs. The reference range was not used to interpret this result as normal/abnormal. NRBC x10^3 (test code = 8871481488) See_Comment [Automated [employer] ge] The system which generated this result transmitted reference range: 10*3/?L. The reference range was not used to interpret this result as normal/abnormal. GRAN MAT (NEUT) % (test code = 770-8) 61.3 % IMM GRAN % (test code = 9353945232) 0.20 % LYMPH % (test code = 736-9) 32.8 % MONO % (test code = 5905-5) 4.5 % EOS % (test code = 713-8) 0.9 % BASO % (test code = 706-2) 0.3 % GRAN MAT x10^3(ANC) (test code = 0041033371) 6.11 10*3/uL 1.88-7.09 IMM GRAN x10^3 (test code = 3800274281) 0.00-0.06 LYMPH x10^3 (test code = 731-0) 3.27 10*3/uL 1.32-3.29 MONO x10^3 (test code = 742-7) 0.45 10*3/uL 0.33-0.92 EOS x10^3 (test code = 711-2) 0.09 10*3/uL 0.03-0.39 BASO x10^3 (test code = 704-7) 0.03 10*3/uL 0.01-0.07 Lab Interpretation (test code = 16119-5) Abnormal [facility] [id number] 16:35:00* Test Item Value Reference Range Interpretation Comme nts POCT PREG (test code = 1605) Negative On board controls acceptable with C Line (test code = 3574) Yes POCT PREG LOT # (test code = 3575) POCT PREG TEST DATE ( test code = 3576) [facility] [id number] 16:35:00* Test Item Value Reference Range Interpretation Comme nts POCT PREG (test code = 1605) Negative On board controls acceptable with C Line (test code = 3574) Yes POCT PREG LOT # (test code = 3575) POCT PREG TEST DATE ( test code = 3576) [facility] [id number] 15:41:00* Test Item Value Reference Range Interpretation Comme nts POCT PREG (test code = 1605) Negative On board controls acceptable with C Line (test code = 3574) Yes POCT PREG LOT # (test code = 3575) POCT PREG TEST DATE ( test code = 3576) [facility] [id number] 15:41:00* Test Item Value Reference Range Interpretation Comme nts POCT PREG (test code = 1605) Negative On board controls acceptable with C Line (test code = 3574) Yes POCT PREG LOT # (test code = 3575) POCT PREG TEST DATE ( test code = 3576) [facility] [id number] 15:41:00* Test Item Value Reference Range Interpretation Comme nts POCT PREG (test code = 1605) Negative On board controls acceptable with C Line (test code = 3574) Yes POCT PREG LOT # (test code = 3575) POCT PREG TEST DATE ( test code = 3576) [facility] [id number] 15:41:00* Test Item Value Reference Range Interpretation Comme nts POCT PREG (test code = 1605) Negative On board controls acceptable with C Line (test code = 3574) Yes POCT PREG LOT # (test code = 3575) POCT PREG TEST DATE ( test code = 3576) [facility] [id number] 15:41:00* Test Item Value Reference Range Interpretation Comme nts POCT PREG (test code = 1605) Negative On board controls acceptable with C Line (test code = 3574) Yes POCT PREG LOT # (test code = 3575) POCT PREG TEST DATE ( test code = 3576) [facility] CenterETHANOL2022-12-10 16:42:23 ALCOHOL<10mg/dL03/03/2022 10:[facility]10 Unwwgtfp75-643 Toxic>100 Depression of GENERAL STUDIES PROGRAM CHAIR>400 Fatalities ReportedUnHarris [facility] HospitalBASIC METABOLIC PANEL (NA, K, CL, CO2, GLUCOSE, BUN, CREATININE, CA)2022-03-03 16:23:10* Test Item Value Reference Range Interpretation Comme nts NA (test code = 6205120901) 138 mmol/L 135-145 K (test code = 0060515464) 3.9 mmol/L 3.5-5.0 CL (test code = 5768786983) 106 mmol/L 98-108 CO2 TOTAL (test code = 3901858323) 24 mmol/L 23-31 AGAP (test code = 3206233544) 2-16 BUN (test code = 5599949841) 11 mg/dL 7-23 GLUCOSE (test code = 5084842537) 95 mg/dL 70-110 CREATININE (test code = 6570078017) 0.62 mg/dL 0.50-1.04 CALCIUM (test code = 4982231569) 9.4 mg/dL 8.6-10.6 eGFR (test code = 9667051724) mL/min/1.73m2 VASHTI (test code = VASHTI) Association [...] or urine or abnormalities in imaging tests). [facility] WITH [id number] 16:19:13* Test Item Value Reference Range Interpretation Comme nts WBC (test code = 6690-2) See_Comment [[employer]] The system which generated this result transmitted [...] 32.8 g/dL 31.6-35.1 RDW-SD (test code = 15610-6) 38.5 fL 39.0-49.9 L RDW-CV (test code = 788-0) 12.9 % 12.0-15.5 PLT (test code = 777-3) See_Comment [[employer]] The system which generated this result transmitted reference range: 166 - 358 10*3/?L. The reference range was not used to interpret this result as normal/abnormal. MPV (test code = 86852-3) 10.2 fL 9.5-12.9 NRBC/100 WBC (test code = 0291937926) See_Comment [[employer]] The system which generated this result transmitted reference range: 0.0 - 10.0 /100 WBCs. The reference range was not used to interpret this result as normal/abnormal. NRBC x10^3 (test code = 6332398596) See_Comment [[employer]] The system which generated this result transmitted reference range: 10*3/?L. The reference range was not used to interpret this result as normal/abnormal. GRAN MAT (NEUT) % (test code = 770-8) 54.2 % IMM GRAN % (test code = 2793922007) 0.30 % LYMPH % (test code = 736-9) 39.1 % MONO % (test code = 5905-5) 5.1 % EOS % (test code = 713-8) 1.2 % BASO % (test code = 706-2) 0.1 % GRAN MAT x10^3(ANC) (test code = 2050106666) 3.94 10*3/uL 1.88-7.09 IMM GRAN x10^3 (test code = 3602487959) 0.00-0.06 LYMPH x10^3 (test code = 731-0) 2.84 10*3/uL 1.32-3.29 MONO x10^3 (test code = 742-7) 0.37 10*3/uL 0.33-0.92 EOS x10^3 (test code = 711-2) 0.09 10*3/uL 0.03-0.39 BASO x10^3 (test code = 704-7) 0.01-0.07 Lab Interpretation (test code = 65676-7) Abnormal [facility] [id number] 20:48:00* Test Item Value Reference Range Interpretation Comme nts POCT PREG (test code = 1605) Negative On board controls acceptable with C Line (test code = 3574) Yes POCT PREG LOT # (test code = 3575) POCT PREG TEST DATE ( test code = 3576) [facility] URINALYSIS W SPECIFIC [id number] 22:32:00* Test Item Value Reference Range Interpretation [...] development and interpretation of all internal controls [facility] URINALYSIS W SPECIFIC [id number] 22:32:00* Test Item Value Reference Range Interpretation [...] and interpretation of all internal [id number]:36:[facility]* Test Item Value Reference Range Interpretation Comme nts POCT PREG (test code = 1605) Negative On board controls acceptable with C Line (test code = 3574) Yes POCT PREG LOT # (test code = 3575) POCT PREG TEST DATE ( test code = 3576) [facility] Notes Date/Time Note Provider Source 2024-04-11 01:25:30 [...] with steady gait, in no apparent distress. G ROOM HAND Jessika Rivera RN [facility] 2024-04-10 22:36:35 Pt arrived ambulatory without assist. Pt c/o headache that started this morning. Tylenol 500mg this AM, no meds since G ROOM HAND Melvina Reglaado RN [facility] 2024-02-24 14:36:46 Chief Complaint Patient presents with Well Woman Exam Molly Arias LVN [facility] 2022-12-05 10:12:02 Formatting of this n ote might be different from the original. Called to speak with [facility] in [place]. They state they did not ever get the prescription. Contacted the patient and she also has not received the prescription. She is requesting they be resent to [facility] in [place]. Re-ordered original prescription and sent to [facility] per patient request. [facility] 2022-12-04 18:01:37 Formatting of this n ote might be different from the original. Thao Lang is a 27 year old female Trinidad from [facility] called stating [facility] Pharmacy are wanting the prescriptions transferred. Please advise azelastine 137 mcg (0.1 %) nasal spray brompheniramine-pseudoephe drine-DM (BROMFED DM) 2-30-10 mg/5 mL syrup fluticasone propionate 50 mcg/actuation nasal spray methylPREDNISolone (MEDROL, KRISTA,) 4 mg tablets [facility] Pharmacy [place], [place] - [address] [place] [address] AT [facility] & [address] [facility] [id number] [facility]"
--- NOTE | 2024-06-27 13:34 | EDPHYS ---
Physician Documentation [facility] Name: Thao Lang Age: 29 yrs Sex: Female : 1995 Arrival Date: 06/27/2024 Time: 12:48 Bed 7 Private MD: ED Physician Unruly Cody HPI: 06/27 13:30 This 29 yrs old Female presents to ER via EMS with complaints of Psych Problem.sp3 13:30 29-year-old female with history of bipolar disease, schizophrenia, asthma was just sp3 discharged from [facility] at 8 AM today 5 hours ago presents via EMS for chief complaint "I am 52 weeks ". Patient did have a history of calling 911 at various times including while she was at [facility]. Father is now here at the bedside saying that she is much improved and has outpatient therapy set up along with all of her medications. He wants to take her back home where he has 24-hour supervision. Patient is not suicidal or homicidal at this time. ROS, history physical limited secondary to psychiatric presenting illness.. Historical: - Allergies: 12:54 No Known Drug Allergies; hb - PMHx: 12:54 Asthma; Bipolar disorder; ectopic ; Schizophrenia; hb - PSHx: 12:54 section; D\\T\\C; hb ROS: 13:31 Unable to obtain ROS due to patient being uncooperative, sp3 Exam: 13:31 Constitutional: This is a well developed, well nourished patient who is awake, alert, sp3 and in no acute distress. Head/Face: Normocephalic, atraumatic. Eyes: Pupils equal round and reactive to light, extra-ocular motions intact. Lids and lashes normal. Conjunctiva and sclera are non-icteric and not injected. Cornea within normal limits. Periorbital areas with no swelling, redness, or edema. Neck: Trachea midline, no thyromegaly or masses palpated, and no cervical lymphadenopathy. Supple, full range of motion without nuchal rigidity, or vertebral point tenderness. No Meningismus. Chest/axilla: Normal chest wall appearance and motion. Nontender with no deformity. No lesions are appreciated. Cardiovascular: Regular rate and rhythm with a normal S1 and S2. No gallops, murmurs, or rubs. Normal PMI, no JVD. No pulse deficits. Respiratory: Lungs have equal breath sounds bilaterally, clear to auscultation and percussion. No rales, rhonchi or wheezes noted. No increased work of breathing, no retractions or nasal flaring. Abdomen/GI: Soft, non-tender, with normal bowel sounds. No distension or tympany. No guarding or rebound. No evidence of tenderness throughout. Back: No spinal tenderness. No costovertebral tenderness. Full range of motion. Skin: Warm, dry with normal turgor. Normal color with no rashes, no lesions, and no evidence of cellulitis. MS/ Extremity: Pulses equal, no cyanosis. Neurovascular intact. Full, normal range of motion. Neuro: Awake and alert, GCS 15, oriented to person, place, time, and situation. Cranial nerves II-XII grossly intact. Motor strength 5/5 in all extremities. Sensory grossly intact. Cerebellar exam normal. Normal gait. 13:31 Psych: Patient has acute bravo with delusions of being 52 weeks , having chickenpox, and having a catheter still inside of her. Patient has no suicidal ideation, homicidal ideation. Speech is somewhat pressured.. Vital Signs: 12:50 BP 126 / 83; Pulse 88; Resp 16; Temp 98.2; Pulse Ox 100% on R/A; hb MDM: 12:48 Medical Screening Exam initiated sp3 13:32 Data reviewed: vital signs, nurses notes, old medical records. ED course: I have sp3 advised patient and father that she needs to return to [facility]. We have called [facility] multiple times with poor communication and initial denial for return stating "we just discharged her we are not taking her back". Patient wants to go home and dad is stating he will be part of the supervision team. He is begging and pleading with staff to take her home. Given that she has no reason for emergency petition order, we have no choice but to let her go home. However we will discharge her as an AMA status given her acute bravo and my concern of a deteriorating further.. Administered Medications: No medications were administered Disposition Summary: 06/27/24 13:34 Left Against Medical Advice Notes: Location: Home sp3 Problem: an acute exacerbation sp3 Symptoms: have worsened sp3 Condition: Stable sp3 Diagnosis - Acute bravo sp3 Followup: sp3 - With: Private Physician - When: Upon discharge from the Emergency Department - Reason: Recheck today's complaints Signatures: Cece Mcclure RN RN Unruly Mark MD MD sp3
--- NOTE | 2024-06-27 13:34 | ER ---
Nurse's Notes [facility] Name: Thao Lang Age: 29 yrs Sex: Female : 1995 Arrival Date: 06/27/2024 Time: 12:48 Bed 7 Private MD: Diagnosis: Acute bravo Presentation: 06/27 12:50 Chief complaint: EMS states: Toned out for 52 weeks with rupture of membranes, hb on scene pt denies being , c/o left sided abdominal pain, possible shingles, and being able to see her spleen with a flashlight. VS WNL. Father report pt discharged from [facility] this morning. Coronavirus screen: At this time, the client does not indicate any symptoms associated with coronavirus-19. Ebola Screen: No symptoms or risks identified at this time. Initial Sepsis Screen: Does the patient meet any 2 criteria? No. Patient's initial sepsis screen is negative. Does the patient have a suspected source of infection? No. Patient's initial sepsis screen is negative. Risk Assessment: Do you want to hurt yourself or someone else? Patient reports no desire to harm self or others. Onset of symptoms was June 27, 2024. 12:50 Method Of Arrival: EMS: [facility] hb 12:50 Acuity: IZABELLA 2 hb Historical: - Allergies: 12:54 No Known Drug Allergies; hb - PMHx: 12:54 Asthma; Bipolar disorder; ectopic ; Schizophrenia; hb - PSHx: 12:54 section; D\T\C; hb Vital Signs: 12:50 BP 126 / 83; Pulse 88; Resp 16; Temp 98.2; Pulse Ox 100% on R/A; hb ED Course: 12:48 Patient arrived in ED. eb 12:48 Unruly Cody MD is Attending Physician. sp3 12:53 Triage completed. hb 12:54 Arm band placed on. hb Administered Medications: No medications were administered Outcome: 13:54 AMA AMA form signed hb 13:54 Condition: stable 13:55 Patient left the ED. hb Signatures: Cece Mcclure RN RN Danna Trinh eb Unruly Cody MD MD sp3 Corrections: (The following items were deleted from the chart) 12:55 12:50 Chief complaint: EMS states: Toned out for 42 weeks with rupture of hb membranes, on scene pt denies being , c/o left sided abdominal pain, possible shingles, and being able to see her spleen with a flashlight. VS WNL. Father report pt discharged from [facility] this morning. hb
[2024-06-27 14:13] VITALS: BP 126/83; TEMP 98.2; O2SAT 100
== END 2024-06-27 13:55 | disposition left against medical advice (07) ==
LOC: ER 12:48
DX: F30.9 Manic episode, unspecified (principal)
CPT/HCPCS: 99282

== ENCOUNTER 2024-07-01 17:04 | Emergency (ER) | payer OTHER ==
--- OUTSIDE RECORDS SUMMARY | 2024-07-01 17:23 | XMS REPORT | Continuity of Care Document ---
Author Name Unknown Address [address] [facility] [place] [address] [facility] [place] Address [address] [facility] [place] [address] Care Team Providers Care Solution Maker Name Role Phone ESTEVAN ADAMS Primary Care Physician JEB Souza Attending Clinician Unavailable OZZIE RIVERA Attending Clinician Unavailab BRADEN Torres Attending Clinician Unavailable FRANKIE DIETZ Attending Clinician Unavailable MD RIKI Attending Clinician Unavailab ESTEVAN Reyes Attending Clinician Unavail able PRESLEY MUNOZ Attending Clinician Unavailable TISH LOCKWOOD Attending Clinician Unavailable YAN POPE Attending Clinician Unavailable CARMINE MONROE Attending Clinician Unavailable CARMINE MONROE Attending Clinician Unavailable Carmine Marcial Attending Clinician [phone] MARILOU JARAMILLO Attending Clinician Unavailable OMKAR HOU Attending Clinician OMKAR Bender Attending Clinician JULISSA Marti Attending Clinician Unavailable JENNIFER PURI Attending Clinician Unavaila lisa GC_GCBZW_Cary_S Attending Clinician Unavaila Estevan Villalobos Attending Clinician + Burton MARC, Jessika Attending Clinician [phone] JESSIKA MANRIQUE Attending Clinician Unavailable Unknown, Attending Attending Clinician Unavailab jaime Puri CNM, Jennifer Malik Attending Clinician [phone] Doctor Unassigned, Effort Attending Clinician U meggandixonSIRIA Tse Attending Clinician Unavailab TIANA Argueta Attending Clinician Unavailable Tiana Antonio MD Attending Clinician [phone] Visit, [facility] Nurse Attending Clinician Unava ilpetar Justin MEDICAL SUPPORT ASSISTANT, Siria Stokes Attending Clinician [phone] Maisha West RN Attending Clinician Unavailable EASTON RIOJAS Attending Clinician Unavailable Nurse, [facility] Exp Cprit Obgyn Attending Clini luis felipe Unavailable JODEE ALMAZAN Attending Clinician Unavailable Jodee Almazan MD Attending Clinician [phone] Zbigniew Fernandez MD Attending Clinician + [phone] Glen Mcgraw MD Attending Clinician [phone] Leonel Mason MD Attending Clinician [phone] Ultrasound, [facility] Attending Clinician UnavailKatelyn Mullen MD Attending Clinician [phone] KATLEYN CRUZ Attending Clinician Unavailable KATELYN CRUZ Attending Clinician Unavailable [facility] Attending Clinician Unavailable [facility], Aaron Strong Attending Clinician + AARON ALICEA Attending Clinician Unavail able Provider, [facility] Temp Attending Clinician Dalila Silvana Whitehead MD Attending Clinician [phone] SILVANA VENEGAS Attending Clinician Unavailable SILVANA VENEGAS Attending Clinician Unavailable Bo Hernandez Attending Clinician [phone] BO RIVERA Attending Clinician UnavailAracely RAMÍREZP, Nguyễn Attending Clinician [phone] AMAYA PEÑA Attending Clinician Unavailable Casey SHARMA, Amaya Attending Clinician [phone] Palmira Phillips Attending Clinician Unavailyahaira Escoto MD, Yair Borjas Attending Clinician [phone] Sherman MARC, Gianni Chou Attending Clinician Robbie Wolfe MD, Cristin Attending Clinician + Leny MARC, Julissa Nunez Attending Clinician Reji Cruz DO Attending Clinician Seth MEDICAL SUPPORT ASSISTANT, Emma Attending Clinician [phone] Tre MARC, Zoe Stinson Attending Clinician [phone] Provider, [facility] Attending Clinician Un available Bony SHARMA, Saadia Attending Clinician [phone] SAADIA LOVETT Attending Clinician Unavailable Omar MEDICAL SUPPORT ASSISTANT, Delano Attending Clinician DELANO NELSON Attending Clinician UnavailYOVANY Barnhart Attending Clinician Unavailable JAIME CLEMENT Attending Clinician Unavailable [email or web address]_S Admitting Clinician UnavailJODEE León Admitting Clinician Unavailable King MARC, Jodee Suarez Admitting Clinician [phone] Leny MARC, Julissa Nunez Admitting Clinician Payers Payer Name Policy Type Policy Number Effective Date Expirati on Date Source [employer] [place] [employer] [id number] 2016 00:00:00 [facility] AMANDA GILMORE COPAY FOCUS 9 [id number] 2024 00:00:00 [facility] [place]/ YING MARTINEZ [id number] 2024 00:00:00 [facility] CHAVO STAR [id number] 2024 00:00:00 2025 00:00:00 [employer] OON Exchange [id number] 2024 00:00:00 [place] CHILDREN STAR [id number] 2022 00:00:00 MEDICAID PENDING PENDING 2020 00:00:00 Problems Condition Name Condition Details Condition Category Status Onset Date Resolution Date Last Treatment Date Treating Clinician Comments Source Presence of intrauteri ne contracept yamila device Presence of intrauteri ne contracept yamila device Disease Active 10-04 00:00: 00 [facility] History of abnormal cervical Pap smear History of abnormal cervical Pap smear Disease Active 10-04 00:00: 00 Overview: Formattin g of this note might be different from the original. 09/2020 LGSIL [facility] Upper respirator y symptom Upper respirator y symptom Disease Active 1-18 00:00: 00 [facility] Anemia of mother in , antepartum Anemia of mother in , antepartum Disease Active 2020-03 2-16 00:00: 00 [facility] Morbid obesity Morbid obesity Disease Active 1-06 00:00: 00 [facility] Folliculit is Folliculit is Disease Resolve d 4-12 00:00: 00 2022-10-04 00:00:00 2022-10-04 08:51:23 [facility] Flu vaccine need Flu vaccine need Disease Resolve d 3-30 00:00: 00 2022-10-04 00:00:00 2022-10-04 08:51:25 [facility] Vaginal lesion Vaginal lesion Disease Resolve d 3-30 00:00: 00 2022-10-04 00:00:00 2022-10-04 08:51:39 [facility] Elevated blood-pres sure reading, without diagnosis of hypertensi on Elevated blood-pres sure reading, without diagnosis of hypertensi on Disease Resolve d 2-15 00:00: 00 2022-10-04 00:00:00 2022-10-04 08:51:26 [facility] COVID COVID Disease Resolve d 2-01 00:00: 00 2022-10-04 00:00:00 2022-10-04 08:51:27 [facility] Upper respirator y symptom Upper respirator y symptom Disease Resolve d 1-18 00:00: 00 2022-10-04 00:00:00 2022-10-04 08:51:28 [facility] Abnormal glandular Papanicola ou smear of cervix Abnormal glandular Papanicola ou smear of cervix Disease Resolve d 8-04 00:00: 00 2022-10-04 00:00:00 2022-10-04 08:51:32 Overview: Formattin g of this note might be different from the original. LGSIL on 2020 pap smear, needs repeat in 12 months [facility] BMI 45.0-49.9, adult BMI 45.0-49.9, adult Disease Resolve d 7-19 00:00: 00 2022-10-04 00:00:00 2022-10-04 08:51:37 [facility] Screening examinatio n for STD (sexually transmitte d disease) Screening examinatio n for STD (sexually transmitte d disease) Disease Resolve d 2-16 00:00: 00 2022-10-04 00:00:00 2022-10-04 08:51:30 [facility] Research study patient Research study patient Disease Resolve d 2-16 00:00: 00 2022-04-19 00:00:00 2022-04-19 10:06:25 Overview: Formattin g of this note might be different from the original. PACT (fellow) [facility] GBS (group B Streptococ cus carrier), +RV culture, currently GBS (group B Streptococ cus carrier), +RV culture, currently Disease Resolve d 1-27 00:00: 00 2022-04-19 00:00:00 2022-04-19 10:06:35 Overview: Formattin g of this note might be different from the original. Address in labor and delivery. [facility] Anemia of mother in , antepartum Anemia of mother in , antepartum Disease Resolve d 2020-03 2-16 00:00: 00 2022-04-19 00:00:00 2022-04-19 10:06:42 [facility] Abnormal quad screen Abnormal quad screen Disease Resolve d 2020-03 2-16 00:00: 00 2022-04-19 00:00:00 2022-04-19 10:06:43 [facility] Supervisio n of high risk in third trimester Supervisio n of high risk in third trimester Disease Resolve d 2020-0 7-19 00:00: 00 2022-04-19 00:00:00 2022-04-19 10:06:21 [facility] SAB (spontaneo us ) SAB (spontaneo us ) Disease Resolve d 2020-0 7-19 00:00: 00 2022-04-19 00:00:00 2022-04-19 10:06:23 [facility] in first trimester with history of ectopic in first trimester with history of ectopic Disease Resolve d 2020-0 7-19 00:00: 00 2022-04-19 00:00:00 2022-04-19 10:06:27 [facility] Primigravi da in third trimester Primigravi da in third trimester Disease Resolve d 0 7-19 00:00: 00 2022-04-19 00:00:00 2022-04-19 10:06:29 [facility] History of ectopic History of ectopic Disease Resolve d 2020-0 4-02 00:00: 00 2022-04-19 00:00:00 2022-04-19 10:06:32 [facility] 39 weeks gestation of 39 weeks gestation of Disease Resolve d 2021-0 2-15 00:00: 00 2021-05-17 00:00:00 2021-05-17 08:21:48 [facility] Ectopic without intrauteri ne Ectopic without intrauteri ne Disease Resolve d 2020-0 3-17 00:00: 00 2020-06-24 00:00:00 2020-06-24 11:40:20 [facility] Nexplanon removal Nexplanon removal Disease Resolve d 2016-0 2-16 00:00: 00 2020-06-08 00:00:00 2021-10-08 00:44:25 [facility] Rubella immune Rubella immune Disease Resolve d 2013-0 1-24 00:00: 00 2016-05-10 00:00:00 2016-05-10 13:46:23 [facility] Insertion of implantabl e subdermal contracept yamila Insertion of implantabl e subdermal contracept yamila Disease Resolve d 04-17 00:00: 00 2016-05-10 00:00:00 2021-10-08 00:28:34 [facility] Anemia Anemia Disease Resolve d 04-01 00:00: 00 2016-05-10 00:00:00 2021-10-08 00:28:17 [facility] Encounter for routine gynecologi curtis examinatio n Encounter for routine gynecologi curtis examinatio n Disease Resolve d 03-30 00:00: 00 2016-05-10 00:00:00 2021-10-08 00:28:16 [facility] Allergies, Adverse Reactions, Alerts Allergy Name Allergy Type Status Severity Reaction(s) Onset Date Inactive Date Treating Clinician Comments Source NO KNOWN ALLERGIE S Drug Class Active [facility] Social History Social Habit Start Date Stop Date Quantity Comments Source ASSERTION Not [facility] - External Sexual orientation K castillo [facility] - External History SDOH Alcohol Frequency [facility] History SDOH Alcohol Std Drinks [facility] History SDOH Alcohol Binge [facility] Gender identity [facility] Alcoholic beverage intake 2024-04-11 00:00:00 2024-04-11 00:00:00 Current drinker of alcohol (finding) [facility] History of Social function 2024-02-24 00:00:00 2024-02-24 00:00:00 [facility] - External Alcohol Comment 2024-02-24 00:00:00 2024-02-24 00:00:00 occasionally [facility] - External Alcohol intake 2022-12-02 00:00:00 2022-12-02 00:00:00 Current drinker of alcohol (finding) [facility] Exposure to SARS-CoV-2 (event) 2022-04-20 00:00:00 2022-04-30 10:31:00 Not sure [facility] Tobacco use and exposure 2021-12-06 00:00:00 2021-12-06 00:00:00 Smokeless tobacco non-user [facility] Sex 2021-07-03 01:43:03 2021-07-03 01:43:03 Female (finding) [facility] - External Sex assigned at 1995 00:00:00 1995 00:00:00 [facility] - External Smoking Status Start Date Stop Date Source Never smoked tobacco [facility] Medications Ordered Medication Name Filled Medication Name Start Date Stop Date Current Medication? Ordering Clinician Indication Dosage Frequency Signature (SIG) Comments Components Source NaCl 0.9% (NS) IV infusion 1,000 mL 04-11 06:45: 00 04-11 06:05 :01 No 1000mL at 999 mL/hr, Intravenou s, ONCE, 1 dose, On 04/11/24 at 0045, Routine [facility] butalbital- acetaminoph en-caff (ESGIC) 50-325-40 mg tablet 1 tablet 04-11 05:45: 00 04-11 06:06 :00 No 1{tbl} 1 tablet, Oral, ONCE, 1 dose, [facility]/10/24 [facility] 2[facility] 30 mg 04-11 05:37: 00 04-11 06:06 :00 No 30mg 30 mg, Slow IV Push, ONCE, 1 dose, On Sat04/10/24 at 2345, ISAAK [facility] Metronidazo le (Flagyl) 500 MG oral Tablet 2023-03 2-05 00:00: 00 Yes [id number] 500mg Q.5D Take 1 tablet (500 mg total) by mouth 2 times daily. [facility] - Externa l azelastine 137 mcg (0.1 %) nasal spray 12-05 00:00: 00 Yes [id number] 1{spray } Use 1 [place] in each nostril in the morning and 1 [place] in the evening. Use in each nostril as directed [facility] bromphenira mine-pseudo ephedrine-D M (BROMFED DM) 2-30-10 mg/5 mL syrup 12-05 00:00: 00 Yes [id number] 10mL Take 10 mL by mouth 4 (four) times daily as needed for Congestion /Allergies , Cough or Cold symptoms. [facility] fluticasone propionate 50 mcg/actuati on nasal spray 12-05 00:00: 00 Yes [id number] 1{spray } Use 1 [place] in each nostril in the morning. [facility] methylPREDN ISolone (MEDROL, KRISTA,) 4 mg tablets 12-05 00:00: 00 Yes [id number] Take by mouth SEE-INSTRU CTIONS. follow package directions [facility] bromphenira mine-pseudo ephedrine-D M (BROMFED DM) 2-30-10 mg/5 mL syrup 12-02 00:00: 00 Yes [id number] 10mL Take 10 mL by mouth 4 (four) times daily as needed for Congestion /Allergies , Cough or Cold symptoms. [facility] azelastine 137 mcg (0.1 %) nasal spray 12-02 00:00: 00 Yes [id number] 1{spray } Use 1 [place] in each nostril in the morning and 1 [place] in the evening. Use in each nostril as directed [facility] fluticasone propionate 50 mcg/actuati on nasal spray 12-02 00:00: 00 Yes [id number] 1{spray } Use 1 [place] in each nostril in the morning. [facility] methylPREDN ISolone (MEDROL, KRISTA,) 4 mg tablets 12-02 00:00: 00 Yes [id number] Take by mouth SEE-INSTRU CTIONS. follow package directions [facility] metroNIDAZO LE 500 mg tablet 10-04 00:00: 00 10-05 04:59 :00 No [id number] 2000mg Take 4 tablets by mouth once now for 1 dose. [facility] copper (PARAGARD T 380A) IUD 1 Intra Uterine Device 04-30 17:45: 00 04-30 17:01 :00 No [id number] 1{IUD} [facility] amoxicillin -clavulanat e (AUGMENTIN) 875-125 mg per tablet 2021-03 00:00: 00 02-01 05:59 :00 No [id number] 1{tbl} Take 1 tablet by mouth in the morning and 1 tablet in the evening. Do all this for 7 days. [facility] phenazopyri dine 100 mg tablet 2021-03 00:00: 00 01-27 04:59 :00 No [id number] 200mg Take 2 tablets by mouth in the morning and 2 tablets at noon and 2 tablets in the evening. Do all this for 2 days. [facility] levonorgest rel-ethinyl estradiol (SRONYX) 0.1-20 mg-mcg per tablet 9-14 00:00: 00 10-02 00:00 :00 No [id number] 1{tbl} Take 1 tablet by mouth in the morning. [facility] ondansetron 4 mg disintegrat ing tablet 4-11 00:00: 00 10-02 00:00 :00 No [id number] 4mg Take 1 tablet by mouth every 8 (eight) hours as needed for Nausea and Vomiting (N/V). [facility] norethindro ne 0.35 mg tablet 3-30 00:00: 00 10-02 00:00 :00 No [id number] 1{tbl} Take 1 tablet by mouth daily. [facility] Immunizations Ordered Immunization Name Filled Immunization Name Date Status Comments Source TD, NOS 2023-01-18 00:00:00 Completed [facility] SARS-COV-2 COVID-19 MAURICIO/J&J VACCINE 2023-01-18 00:00:00 Completed [facility] TDAP 2023-01-18 00:00:00 Completed [facility] HPV 2023-01-18 00:00:00 Completed [facility] HPV9 2023-01-18 00:00:00 Completed [facility] DTaP, Unspecified Formulation 2023-01-18 00:00:00 Completed [facility] DPT/HIB 2023-01-18 00:00:00 Completed [facility] HEPATITIS A 2023-01-18 00:00:00 Completed [facility] Hep B, Unspecified Formulation 2023-01-18 00:00:00 Completed [facility] Meningococcal Polysaccharide (groups A, C, Y and W-135) conjugate vaccine (MCV4P) 2023-01-18 00:00:00 Completed [facility] MMR 2023-01-18 00:00:00 Completed [facility] IPV 2023-01-18 00:00:00 Completed [facility] Poliovirus, Live, Oral, Trivalent 2023-01-18 00:00:00 Completed [facility] TD, NOS 2021-07-03 00:00:00 Completed [facility] SARS-COV-2 COVID-19 MAURICIO/J&J VACCINE 2021-07-03 00:00:00 Completed [facility] TDAP 2021-07-03 00:00:00 Completed [facility] HPV 2021-07-03 00:00:00 Completed [facility] HPV9 2021-07-03 00:00:00 Completed [facility] DTaP, Unspecified Formulation 2021-07-03 00:00:00 Completed [facility] DPT/HIB 2021-07-03 00:00:00 Completed [facility] HEPATITIS A 2021-07-03 00:00:00 Completed [facility] Hep B, Unspecified Formulation 2021-07-03 00:00:00 Completed [facility] Meningococcal Polysaccharide (groups A, C, Y and W-135) conjugate vaccine (MCV4P) 2021-07-03 00:00:00 Completed [facility] MMR 2021-07-03 00:00:00 Completed [facility] IPV 2021-07-03 00:00:00 Completed [facility] Poliovirus, Live, Oral, Trivalent 2021-07-03 00:00:00 Completed [facility] TD, NOS 2021-05-29 00:00:00 Completed [facility] SARS-COV-2 COVID-19 MAURICIO/J&J VACCINE 2021-05-29 00:00:00 Completed [facility] TDAP 2021-05-29 00:00:00 Completed [facility] HPV 2021-05-29 00:00:00 Completed [facility] HPV9 2021-05-29 00:00:00 Completed [facility] DTaP, Unspecified Formulation 2021-05-29 00:00:00 Completed [facility] DPT/HIB 2021-05-29 00:00:00 Completed [facility] HEPATITIS A 2021-05-29 00:00:00 Completed [facility] Hep B, Unspecified Formulation 2021-05-29 00:00:00 Completed [facility] Meningococcal Polysaccharide (groups A, C, Y and W-135) conjugate vaccine (MCV4P) 2021-05-29 00:00:00 Completed [facility] MMR 2021-05-29 00:00:00 Completed [facility] IPV 2021-05-29 00:00:00 Completed [facility] Poliovirus, Live, Oral, Trivalent 2021-05-29 00:00:00 Completed [facility] HPV9 2021-05-17 00:00:00 Completed [facility] HPV9 2021-05-17 00:00:00 Completed [facility] HPV9 2021-05-17 00:00:00 Completed [facility] HPV9 2021-05-17 00:00:00 Completed [facility] HPV9 2021-05-17 00:00:00 Completed [facility] HPV9 2021-05-17 00:00:00 Completed [facility] HPV9 2021-05-17 00:00:00 Completed [facility] HPV9 2021-05-17 00:00:00 Completed [facility] HPV9 2021-05-17 00:00:00 Completed [facility] HPV9 2021-05-17 00:00:00 Completed [facility] HPV9 2021-05-17 00:00:00 Completed [facility] HPV9 2021-05-17 00:00:00 Completed [facility] HPV9 2021-05-17 00:00:00 Completed [facility] HPV9 2021-05-17 00:00:00 Completed [facility] HPV9 2021-05-17 00:00:00 Completed [facility] HPV9 2021-05-17 00:00:00 Completed [facility] HPV9 2021-05-17 00:00:00 Completed [facility] HPV9 2021-05-17 00:00:00 Completed [facility] HPV9 2021-05-17 00:00:00 Completed [facility] HPV9 2021-05-17 00:00:00 Completed [facility] HPV9 2021-05-17 00:00:00 Completed [facility] TD, NOS 2021-03-15 00:00:00 Completed [facility] SARS-COV-2 COVID-19 MAURICIO/J&J VACCINE 2021-03-15 00:00:00 Completed [facility] TDAP 2021-03-15 00:00:00 Completed [facility] HPV 2021-03-15 00:00:00 Completed [facility] DTaP, Unspecified Formulation 2021-03-15 00:00:00 Completed [facility] DPT/HIB 2021-03-15 00:00:00 Completed [facility] HEPATITIS A 2021-03-15 00:00:00 Completed [facility] Hep B, Unspecified Formulation 2021-03-15 00:00:00 Completed [facility] Meningococcal Polysaccharide (groups A, C, Y and W-135) conjugate vaccine (MCV4P) 2021-03-15 00:00:00 Completed [facility] MMR 2021-03-15 00:00:00 Completed [facility] IPV 2021-03-15 00:00:00 Completed [facility] Poliovirus, Live, Oral, Trivalent 2021-03-15 00:00:00 Completed [facility] TDAP 2021-02-22 00:00:00 Completed [facility] TDAP 2021-02-22 00:00:00 Completed [facility] TDAP 2021-02-22 00:00:00 Completed [facility] TDAP 2021-02-22 00:00:00 Completed [facility] TDAP 2021-02-22 00:00:00 Completed [facility] TDAP 2021-02-22 00:00:00 Completed [facility] TDAP 2021-02-22 00:00:00 Completed [facility] TDAP 2021-02-22 00:00:00 Completed [facility] TDAP 2021-02-22 00:00:00 Completed [facility] TDAP 2021-02-22 00:00:00 Completed [facility] TDAP 2021-02-22 00:00:00 Completed [facility] TDAP 2021-02-22 00:00:00 Completed [facility] TDAP 2021-02-22 00:00:00 Completed [facility] TDAP 2021-02-22 00:00:00 Completed [facility] TDAP 2021-02-22 00:00:00 Completed [facility] TDAP 2021-02-22 00:00:00 Completed [facility] TDAP 2021-02-22 00:00:00 Completed [facility] TDAP 2021-02-22 00:00:00 Completed [facility] TDAP 2021-02-22 00:00:00 Completed [facility] TDAP 2021-02-22 00:00:00 Completed [facility] TDAP 2021-02-22 00:00:00 Completed [facility] TD, NOS 2020-10-27 00:00:00 Completed [facility] SARS-COV-2 COVID-19 MAURICIO/J&J VACCINE 2020-10-27 00:00:00 Completed [facility] HPV 2020-10-27 00:00:00 Completed [facility] DTaP, Unspecified Formulation 2020-10-27 00:00:00 Completed [facility] DPT/HIB 2020-10-27 00:00:00 Completed [facility] HEPATITIS A 2020-10-27 00:00:00 [facility] [facility] [place] Hep B, Unspecified Formulation 2020-10-27 00:00:00 Completed [facility] [place] Meningococcal Polysaccharide (groups A, C, Y and W-135) conjugate vaccine (MCV4P) 2020-10-27 00:00:00 Completed [facility] [place] MMR 2020-10-27 00:00:00 Completed [facility] [place] IPV 2020-10-27 00:00:00 Completed [facility] [place] Poliovirus, Live, Oral, Trivalent 2020-10-27 00:00:00 Completed [facility] [place] TDAP 2020-10-27 00:00:00 Completed [facility] [place] SARS-COV-2 COVID-19 MAURICIO/J&J VACCINE 2020-07-26 00:00:00 Completed [facility] [place] SARS-COV-2 COVID-19 MAURICIO/J&J VACCINE 2020-07-26 00:00:00 Completed [facility] [place] SARS-COV-2 COVID-19 MAURICIO/J&J VACCINE 2020-07-26 00:00:00 Completed [facility] [place] SARS-COV-2 COVID-19 MAURICIO/J&J VACCINE 2020-07-26 00:00:00 Completed [facility] [place] SARS-COV-2 COVID-19 MAURICIO/J&J VACCINE 2020-07-26 00:00:00 Completed [facility] [place] SARS-COV-2 COVID-19 MAURICIO/J&J VACCINE 2020-07-26 00:00:00 Completed [facility] [place] SARS-COV-2 COVID-19 MAURICIO/J&J VACCINE 2020-07-26 00:00:00 Completed [facility] [place] SARS-COV-2 COVID-19 MAURICIO/J&J VACCINE 2020-07-26 00:00:00 Completed [facility] [place] SARS-COV-2 COVID-19 MAURICIO/J&J VACCINE 2020-07-26 00:00:00 Completed [facility] [place] SARS-COV-2 COVID-19 MAURICIO/J&J VACCINE 2020-07-26 00:00:00 Completed [facility] [place] SARS-COV-2 COVID-19 MAURICIO/J&J VACCINE 2020-07-26 00:00:00 Completed [facility] [place] SARS-COV-2 COVID-19 MAURICIO/J&J VACCINE 2020-07-26 00:00:00 Completed [facility] [place] SARS-COV-2 COVID-19 MAURICIO/J&J VACCINE 2020-07-26 00:00:00 Completed [facility] [place] SARS-COV-2 COVID-19 MAURICIO/J&J VACCINE 2020-07-26 00:00:00 Completed [facility] [place] SARS-COV-2 COVID-19 MAURICIO/J&J VACCINE 2020-07-26 00:00:00 Completed [facility] [place] SARS-COV-2 COVID-19 MAURICIO/J&J VACCINE 2020-07-26 00:00:00 Completed [facility] [place] SARS-COV-2 COVID-19 MAURICIO/J&J VACCINE 2020-07-26 00:00:00 Completed [facility] [place] SARS-COV-2 COVID-19 MAURICIO/J&J VACCINE 2020-07-26 00:00:00 Completed [facility] [place] SARS-COV-2 COVID-19 MAURICIO/J&J VACCINE 2020-07-26 00:00:00 Completed [facility] [place] SARS-COV-2 COVID-19 MAURICIO/J&J VACCINE 2020-07-26 00:00:00 Completed [facility] [place] SARS-COV-2 COVID-19 MAURICIO/J&J VACCINE 2020-07-26 00:00:00 Completed [facility] [place] HPV 2013-11-11 00:00:00 Completed [facility] [place] HPV 2013-11-11 00:00:00 Completed [facility] [place] HPV 2013-11-11 00:00:00 Completed [facility] [place] HPV 2013-11-11 00:00:00 Completed [facility] [place] HPV 2013-11-11 00:00:00 Completed [facility] [place] HPV 2013-11-11 00:00:00 Completed [facility] [place] HPV 2013-11-11 00:00:00 Completed [facility] [place] HPV 2013-11-11 00:00:00 Completed [facility] [place] HPV 2013-11-11 00:00:00 Completed [facility] [place] HPV 2013-11-11 00:00:00 Completed [facility] [place] HPV 2013-11-11 00:00:00 Completed [facility] [place] HPV 2013-11-11 00:00:00 Completed [facility] [place] HPV 2013-11-11 00:00:00 Completed [facility] [place] HPV 2013-11-11 00:00:00 Completed [facility] [place] HPV 2013-11-11 00:00:00 Completed [facility] [place] HPV 2013-11-11 00:00:00 Completed [facility] [place] HPV 2013-11-11 00:00:00 Completed [facility] [place] HPV 2013-11-11 00:00:00 Completed [facility] [place] HPV 2013-11-11 00:00:00 Completed [facility] [place] HPV 2013-11-11 00:00:00 Completed [facility] [place] HPV 2013-11-11 00:00:00 Completed HPV 2013-09-11 00:00:00 Completed [facility] [place] HPV 2013-09-11 00:00:00 Completed [facility] [place] HPV 2013-09-11 00:00:00 Completed [facility] [place] HPV 2013-09-11 00:00:00 Completed [facility] [place] HPV 2013-09-11 00:00:00 Completed [facility] [place] HPV 2013-09-11 00:00:00 Completed [facility] [place] HPV 2013-09-11 00:00:00 Completed [facility] [place] HPV 2013-09-11 00:00:00 Completed [facility] [place] HPV 2013-09-11 00:00:00 Completed [facility] [place] HPV 2013-09-11 00:00:00 Completed [facility] [place] HPV 2013-09-11 00:00:00 Completed [facility] [place] HPV 2013-09-11 00:00:00 Completed [facility] [place] HPV 2013-09-11 00:00:00 Completed [facility] [place] HPV 2013-09-11 00:00:00 Completed [facility] [place] HPV 2013-09-11 00:00:00 Completed [facility] [place] HPV 2013-09-11 00:00:00 Completed [facility] [place] HPV 2013-09-11 00:00:00 Completed [facility] [place] HPV 2013-09-11 00:00:00 Completed [facility] [place] HPV 2013-09-11 00:00:00 Completed [facility] [place] HPV 2013-09-11 00:00:00 Completed [facility] [place] HPV 2013-09-11 00:00:00 Completed [facility] [place] HPV 2013-05-10 00:00:00 Completed [facility] [place] HPV 2013-05-10 00:00:00 Completed [facility] [place] HPV 2013-05-10 00:00:00 Completed [facility] [place] HPV 2013-05-10 00:00:00 Completed [facility] [place] HPV 2013-05-10 00:00:00 Completed [facility] [place] HPV 2013-05-10 00:00:00 Completed [facility] [place] HPV 2013-05-10 00:00:00 Completed [facility] [place] HPV 2013-05-10 00:00:00 Completed [facility] [place] HPV 2013-05-10 00:00:00 Completed [facility] [place] HPV 2013-05-10 00:00:00 Completed [facility] [place] HPV 2013-05-10 00:00:00 Completed [facility] [place] HPV 2013-05-10 00:00:00 Completed [facility] [place] HPV 2013-05-10 00:00:00 Completed [facility] [place] HPV 2013-05-10 00:00:00 Completed [facility] [place] HPV 2013-05-10 00:00:00 Completed [facility] [place] HPV 2013-05-10 00:00:00 Completed [facility] [place] HPV 2013-05-10 00:00:00 Completed [facility] [place] HPV 2013-05-10 00:00:00 Completed [facility] [place] HPV 2013-05-10 00:00:00 Completed [facility] [place] HPV 2013-05-10 00:00:00 Completed [facility] [place] HPV 2013-05-10 00:00:00 Completed Meningococcal Polysaccharide (groups A, C, Y and W-135) conjugate vaccine (MCV4P) 2012-10-16 00:00:00 Completed [facility] [place] Meningococcal Polysaccharide (groups A, C, Y and W-135) conjugate vaccine (MCV4P) 2012-10-16 00:00:00 Completed [facility] [place] Meningococcal Polysaccharide (groups A, C, Y and W-135) conjugate vaccine (MCV4P) 2012-10-16 00:00:00 Completed [facility] [place] Meningococcal Polysaccharide (groups A, C, Y and W-135) conjugate vaccine (MCV4P) 2012-10-16 00:00:00 Completed [facility] [place] Meningococcal Polysaccharide (groups A, C, Y and W-135) conjugate vaccine (MCV4P) 2012-10-16 00:00:00 Completed Td 2010-10-28 00:00:00 Completed [facility] [place] Td 2010-10-28 00:00:00 Completed [facility] [place] Td 2010-10-28 00:00:00 Completed [facility] [place] Td 2010-10-28 00:00:00 Completed [facility] [place] Td 2010-10-28 00:00:00 Completed [facility] [place] Td 2010-10-28 00:00:00 Completed [facility] [place] Td 2010-10-28 00:00:00 Completed [facility] [place] Td 2010-10-28 00:00:00 Completed [facility] [place] Td 2010-10-28 00:00:00 Completed [facility] [place] Td 2010-10-28 00:00:00 Completed [facility] [place] Td 2010-10-28 00:00:00 Completed [facility] [place] TD, NOS 2010-10-28 00:00:00 Completed [facility] [place] TD, NOS 2010-10-28 00:00:00 Completed [facility] [place] TD, NOS 2010-10-28 00:00:00 Completed [facility] [place] TD, NOS 2010-10-28 00:00:00 Completed [facility] [place] TD, NOS 2010-10-28 00:00:00 Completed [facility] [place] TD, NOS 2010-10-28 00:00:00 Completed [facility] [place] TD, NOS 2010-10-28 00:00:00 Completed [facility] [place] TD, NOS 2010-10-28 00:00:00 Completed [facility] [place] TD, NOS 2010-10-28 00:00:00 Completed [facility] [place] TD, NOS 2010-10-28 00:00:00 Completed [facility] [place] HEPATITIS A 2009-09-16 00:00:00 Completed [facility] [place] HEPATITIS A 2009-09-16 00:00:00 Completed [facility] [place] HEPATITIS A 2009-09-16 00:00:00 Completed [facility] [place] HEPATITIS A 2009-09-16 00:00:00 Completed [facility] [place] HEPATITIS A 2009-09-16 00:00:00 Completed HEPATITIS A 2008-07-28 00:00:00 Completed [facility] [place] Meningococcal Polysaccharide (groups A, C, Y and W-135) conjugate vaccine (MCV4P) 2008-07-28 00:00:00 Completed [facility] [place] MMR 2008-07-28 00:00:00 Completed [facility] [place] TDAP 2008-07-28 00:00:00 Completed [facility] [place] HEPATITIS A 2008-07-28 00:00:00 Completed [facility] [place] Meningococcal Polysaccharide (groups A, C, Y and W-135) conjugate vaccine (MCV4P) 2008-07-28 00:00:00 Completed [facility] [place] MMR 2008-07-28 00:00:00 Completed [facility] [place] TDAP 2008-07-28 00:00:00 Completed [facility] [place] HEPATITIS A 2008-07-28 00:00:00 Completed [facility] [place] Meningococcal Polysaccharide (groups A, C, Y and W-135) conjugate vaccine (MCV4P) 2008-07-28 00:00:00 Completed [facility] [place] MMR 2008-07-28 00:00:00 Completed [facility] [place] TDAP 2008-07-28 00:00:00 Completed [facility] [place] HEPATITIS A 2008-07-28 00:00:00 Completed [facility] [place] Meningococcal Polysaccharide (groups A, C, Y and W-135) conjugate vaccine (MCV4P) 2008-07-28 00:00:00 Completed [facility] [place] MMR 2008-07-28 00:00:00 Completed [facility] [place] TDAP 2008-07-28 00:00:00 Completed [facility] [place] HEPATITIS A 2008-07-28 00:00:00 Completed Meningococcal Polysaccharide (groups A, C, Y and W-135) conjugate vaccine (MCV4P) 2008-07-28 00:00:00 Completed MMR 2008-07-28 00:00:00 Completed TDAP 2008-07-28 00:00:00 Completed DTaP, Unspecified Formulation 2002-04-01 00:00:00 Completed [facility] [place] MMR 2002-04-01 00:00:00 Completed [facility] [place] IPV 2002-04-01 00:00:00 Completed [facility] [place] DTaP, Unspecified Formulation 2002-04-01 00:00:00 Completed [facility] [place] MMR 2002-04-01 00:00:00 Completed [facility] [place] IPV 2002-04-01 00:00:00 Completed [facility] [place] DTaP, Unspecified Formulation 2002-04-01 00:00:00 Completed [facility] [place] MMR 2002-04-01 00:00:00 Completed [facility] [place] IPV 2002-04-01 00:00:00 Completed [facility] [place] DTaP, Unspecified Formulation 2002-04-01 00:00:00 Completed [facility] [place] MMR 2002-04-01 00:00:00 Completed [facility] [place] IPV 2002-04-01 00:00:00 Completed [facility] [place] DTaP, Unspecified Formulation 2002-04-01 00:00:00 Completed MMR 2002-04-01 00:00:00 Completed IPV 2002-04-01 00:00:00 Completed DPT/HIB 1996 00:00:00 Completed [facility] [place] Hep B, Unspecified Formulation 1996 00:00:00 Completed [facility] [place] Poliovirus, Live, Oral, Trivalent 1996 00:00:00 Completed [facility] [place] DPT/HIB 1996 00:00:00 Completed [facility] [place] Hep B, Unspecified Formulation 1996 00:00:00 Completed [facility] [place] Poliovirus, Live, Oral, Trivalent 1996 00:00:00 Completed [facility] [place] DPT/HIB 1996 00:00:00 Completed [facility] [place] Hep B, Unspecified Formulation 1996 00:00:00 Completed [facility] [place] Poliovirus, Live, Oral, Trivalent 1996 00:00:00 Completed [facility] [place] DPT/HIB 1996 00:00:00 Completed [facility] [place] Hep B, Unspecified Formulation 1996 00:00:00 Completed [facility] [place] Poliovirus, Live, Oral, Trivalent 1996 00:00:00 Completed [facility] [place] DPT/HIB 1996 00:00:00 Completed Hep B, Unspecified Formulation 1996 00:00:00 Completed Poliovirus, Live, Oral, Trivalent 1996 00:00:00 Completed Hep B, Unspecified Formulation 1996 00:00:00 Completed [facility] [place] Hep B, Unspecified Formulation 1996 00:00:00 Completed [facility] [place] Hep B, Unspecified Formulation 1996 00:00:00 Completed [facility] [place] Hep B, Unspecified Formulation 1996 00:00:00 Completed [facility] [place] Hep B, Unspecified Formulation 1996 00:00:00 Completed Vital Signs Vital Name Observation Time Observation Value Comments S ource Body height 2024-06-03 20:36:00 165.1 cm Ying Coyleybold - External Body weight 2024-06-03 20:36:00 130.636 kg Ying Coyleybold - External BMI 2024-06-03 20:36:00 47.93 kg/m2 Ying Seybold - External Systolic blood pressure 2024-04-11 07:00:00 140 mm[Hg] [facility] [place] Diastolic blood pressure 2024-04-11 07:00:00 80 mm[Hg] [facility] [place] Heart rate 2024-04-11 07:00:00 90 /min [facility] [place] Body temperature 2024-04-11 07:00:00 37 Emmanuelle [facility] [place] Oxygen saturation in Arterial blood by Pulse oximetry 2024-04-11 07:00:00 97 /min [facility] [place] Respiratory rate 2024-04-11 06:06:00 18 /min [facility] [place] Body height 2024-04-11 04:36:00 160 cm [facility] [place] Body weight 2024-04-11 04:36:00 124.739 kg [facility] [place] BMI 2024-04-11 04:36:00 48.71 kg/m2 [facility] [place] Systolic blood pressure 2024-02-24 20:39:00 118 mm[Hg] [...] Systolic blood pressure 2022-12-03 00:15:00 118 mm[Hg] [facility] [place] Diastolic blood pressure 2022-12-03 00:15:00 79 mm[Hg] [facility] [place] Heart rate 2022-12-03 00:15:00 99 /min [facility] [place] Body temperature 2022-12-03 00:15:00 37.44 Emmanuelle [facility] [place] Respiratory rate 2022-12-03 00:15:00 15 /min [facility] [place] Body height 2022-12-03 00:15:00 165.1 cm [facility] [place] Body weight 2022-12-03 00:15:00 138.256 kg [facility] [place] BMI 2022-12-03 00:15:00 50.72 kg/m2 [facility] [place] Oxygen saturation in Arterial blood by Pulse oximetry 2022-12-03 00:15:00 98 /min [facility] [place] Systolic blood pressure 2022-10-02 18:30:00 136 mm[Hg] [facility] [place] Diastolic blood pressure 2022-10-02 18:30:00 75 mm[Hg] [facility] [place] Heart rate 2022-10-02 18:30:00 80 /min [facility] [place] Body temperature 2022-10-02 18:30:00 36.83 Emmanuelle [facility] [place] Respiratory rate 2022-10-02 18:30:00 18 /min [facility] [place] Body height 2022-10-02 18:30:00 162.6 cm [facility] [place] Body weight 2022-10-02 18:30:00 132.904 kg [facility] [place] BMI 2022-10-02 18:30:00 50.29 kg/m2 [facility] [place] Systolic blood pressure 2022-04-30 16:31:00 133 mm[Hg] [facility] [place] Diastolic blood pressure 2022-04-30 16:31:00 84 mm[Hg] [facility] [place] Heart rate 2022-04-30 16:31:00 76 /min [facility] [place] Body temperature 2022-04-30 16:31:00 35.83 Emmanuelle [facility] [place] Respiratory rate 2022-04-30 16:31:00 18 /min [facility] [place] Body height 2022-04-30 16:31:00 162.6 cm [facility] [place] Body weight 2022-04-30 16:31:00 131.815 kg [facility] [place] BMI 2022-04-30 16:31:00 49.88 kg/m2 [facility] [place] Systolic blood pressure 2022-04-19 15:39:00 119 mm[Hg] [facility] [place] Diastolic blood pressure 2022-04-19 15:39:00 76 mm[Hg] [facility] [place] Heart rate 2022-04-19 15:39:00 81 /min [facility] [place] Body temperature 2022-04-19 15:39:00 36.61 Emmanuelle [facility] [place] Respiratory rate 2022-04-19 15:39:00 18 /min [facility] [place] Body height 2022-04-19 15:39:00 162.6 cm [facility] [place] Body weight 2022-04-19 15:39:00 131.044 kg [facility] [place] BMI 2022-04-19 15:39:00 49.59 kg/m2 [facility] [place] Systolic blood pressure 2022-03-03 15:17:00 125 mm[Hg] [facility] [place] Diastolic blood pressure 2022-03-03 15:17:00 87 mm[Hg] [facility] [place] Heart rate 2022-03-03 15:17:00 74 /min [facility] [place] Body temperature 2022-03-03 15:17:00 36.83 Emmanuelle [facility] [place] Respiratory rate 2022-03-03 15:17:00 18 /min [facility] [place] Body height 2022-03-03 15:17:00 162.6 cm [facility] [place] Body weight 2022-03-03 15:17:00 113.399 kg [facility] [place] BMI 2022-03-03 15:17:00 42.91 kg/m2 [facility] [place] Oxygen saturation in Arterial blood by Pulse oximetry 2022-03-03 15:17:00 99 /min [facility] [place] Systolic blood pressure 2022-02-14 20:28:00 138 mm[Hg] [facility] [place] Diastolic blood pressure 2022-02-14 20:28:00 85 mm[Hg] [facility] [place] Heart rate 2022-02-14 20:28:00 66 /min [facility] [place] Body temperature 2022-02-14 20:28:00 36.33 Emmanuelle [facility] [place] Respiratory rate 2022-02-14 20:28:00 20 /min [facility] [place] Body height 2022-02-14 20:28:00 162.6 cm [facility] [place] Body weight 2022-02-14 20:28:00 124.059 kg [facility] [place] BMI 2022-02-14 20:28:00 46.95 kg/m2 [facility] [place] Systolic blood pressure 2022-01-24 22:13:00 144 mm[Hg] Had to try 3x before getting a reading [facility] [place] Diastolic blood pressure 2022-01-24 22:13:00 98 mm[Hg] Had to try 3x before getting a reading [facility] [place] Heart rate 2022-01-24 22:13:00 97 /min [facility] [place] Body temperature 2022-01-24 22:13:00 36.89 Emmanuelle [facility] [place] Respiratory rate 2022-01-24 22:13:00 18 /min [facility] [place] Body height 2022-01-24 22:13:00 162.6 cm [facility] [place] Body weight 2022-01-24 22:13:00 125.919 kg [facility] [place] BMI 2022-01-24 22:13:00 47.65 kg/m2 [facility] [place] Oxygen saturation in Arterial blood by Pulse oximetry 2022-01-24 22:13:00 98 /min [facility] [place] Systolic blood pressure 2021-12-06 13:30:00 124 mm[Hg] [facility] [place] Diastolic blood pressure 2021-12-06 13:30:00 54 mm[Hg] [facility] [place] Heart rate 2021-12-06 13:30:00 72 /min [facility] [place] Body temperature 2021-12-06 13:30:00 36.28 Emmanuelle [facility] [place] Respiratory rate 2021-12-06 13:30:00 18 /min [facility] [place] Body height 2021-12-06 13:30:00 165.1 cm [facility] [place] Body weight 2021-12-06 13:30:00 130.296 kg [facility] [place] BMI 2021-12-06 13:30:00 47.80 kg/m2 [facility] [place] Procedures Procedure Date / Time Performed Performing Clinician Source COMP. METABOLIC PANEL (20775) 2024-04-11 06:05:00 Carmine Monroe [facility] [place] CBC WITH DIFF 2024-04-11 06:05:00 Carmine Monroe [facility] INFLUENZA A/B RSV COVID NAAT 2024-04-11 06:05:00 Carmine Monroe [facility] [place] POCT TEST 2024-04-11 05:12:00 Julia Monroe [facility] [place] POCT SARS-COV-2 ANTIGEN (BINAX NOW) 2022-12-03 00:31:00 Jessika Manrique [facility] [place] CBC WITH DIFF 2022-10-02 19:30:00 Jennifer Puri [facility] [place] GLYCOSYLATED HEMOGLOBIN (A1C) 2022-10-02 19:30:00 Jennifer Puri [facility] [place] HCV ANTIBODY 2022-10-02 19:30:00 Jennifer Puri [facility] GC & CHLAMYDIA AMPLIFIED ASSAY 2022-10-02 19:30:00 Jennifer Puri [facility] [place] HIV 1/2 AG-AB WITH REFLEX 2022-10-02 19:30:00 Jennifer Puri [facility] [place] TRICHOMONAS AMPLIFIED ASSAY 2022-10-02 19:30:00 Jnenifer Puri [facility] [place] PAP SMEAR-LIQUID BASED-CP 2022-10-02 19:30:00 Jennifer Puri [facility] [place] SYPHILIS IGG/IGM 2022-10-02 19:30:00 Jennifer Puri [facility] PATIENT FINANCIAL POLICY 2022-10-02 18:08:46 Doctor Unassigned, [place] [facility] [place] POCT TEST 2022-04-30 16:35:00 Jonel Adams [facility] [place] DISCLOSURE AND CONSENT, MEDICAL AND SURGICAL PROCEDURES 2022-04-30 06:01:00 Doctor Unassigned, [place] [facility] [place] POCT TEST 2022-04-19 15:41:00 [facility]el [facility] [place] BASIC METABOLIC PANEL (NA, K, CL, CO2, GLUCOSE, BUN, CREATININE, CA) 2022-03-03 15:57:00 Tiana Antonio [facility] [place] ETHANOL 2022-03-03 15:57:00 Tiana Antonio [facility] CBC WITH DIFF 2022-03-03 15:57:00 Tiana Antonio [facility] URINALYSIS 2022-03-03 15:57:00 Tiana Antonio [facility] URINE DRUG (IMMUNOASSAY) - COMPREHENSIVE DRUG SCREEN W/O REFLEX 2022-03-03 15:57:00 Tiana Antonio [facility] [place] HB ECG ROUTINE & RHYTHM STRIP 2022-03-03 15:55:48 Tiana Antonio [facility] [place] POCT TEST 2022-02-14 20:48:00 Jonel Adams [facility] [place] ASSIGNMENT OF BENEFITS 2022-02-14 19:38:06 Docto r Unassigned, Effort [facility] [place] POCT URINALYSIS 2022-01-24 22:31:00 Jessika Manrique [facility] POCT TEST 2021-12-06 15:36:00 Jonel Adams [facility] [place] Encounters Start Date/Time End Date/Time Encounter Type Admission Type Attending Clinicians Care Facility Care Department Encounter ID Source 2021-01-22 06:46:10 Emergency [facility] [id number] [facility] 2024-07-13 15:45:00 2024-07-13 15:45:00 Outpatient JEB DAVIS [id number] [facility] 2024-06-30 14:45:00 2024-06-30 14:45:00 Outpatient OZZIE RIVERA YING RODRIGUEZ [id number] [facility] 2024-06-23 15:30:00 2024-06-23 15:30:00 Outpatient R [facility] [id number] [facility] 2024-06-04 00:00:00 2024-06-04 00:00:00 Outpatient GARCIAJOEYBRADEN YING RODRIGUEZ [id number] [facility] 2024-06-03 15:30:00 2024-06-03 15:30:00 Outpatient J LUIS FRANKIE YING RODRIGUEZ [id number] [facility] 2024-06-03 00:00:00 2024-06-03 00:00:00 Outpatient MD YING RAMÍREZ [id number] [facility] 2024-06-02 14:30:00 2024-06-02 14:30:00 Outpatient R ESTEVAN ADAMS [facility] [id number] [facility] 2024-06-02 00:00:00 2024-06-02 00:00:00 Outpatient GARCIAANGELOJENNIFERTaeBRADEN YING RODRIGUEZ [id number] [facility] 2024-04-28 23:58:00 2024-04-29 02:03:00 Emergency Emergency PRESLEY MUNOZ [facility] General Medicine [id number] [facility] 2024-04-27 08:00:00 2024-04-27 08:00:00 Outpatient TISH LOCKWOOD [id number] [facility] 2024-04-24 14:45:00 2024-04-24 14:45:00 Outpatient JEB DAVIS [id number] [facility] 2024-04-17 13:45:00 2024-04-17 13:45:00 Outpatient YAN GRAHAM [facility] [id number] [facility] 2024-04-13 08:15:00 2024-04-13 08:15:00 Outpatient SUSANJEB YING RODRIGUEZ [id number] [facility] 2024-04-10 22:41:00 2024-04-11 01:27:00 Emergency X CARMINE MONROE SHINTA [facility] ERT [id number] [facility] 2024-04-10 22:41:00 2024-04-11 01:27:00 Emergency Carmine Monroe [facility] 1.2.840.114 350.1.13.10 4.2.7.2.686 [id number] [facility] 2024-03-16 15:00:00 2024-03-16 15:00:00 Outpatient ELLA MARILOUITA RODRIGUEZ [id number] [facility] 2024-03-12 15:00:00 2024-03-12 15:00:00 Outpatient DAVIS JEB YING RODRIGUEZ [id number] [facility] 2024-02-25 10:30:00 2024-02-25 10:30:00 Outpatient ELLA MARILOUITA RODRIGUEZ [id number] [facility] 2024-02-24 13:45:00 2024-02-24 13:45:00 Outpatient JEB DAVIS [id number] [facility] 2023-09-18 14:00:00 2023-09-18 14:00:00 Outpatient YAN GRAHAM [facility] [id number] [facility] 2023-08-30 15:15:00 2023-08-30 15:15:00 Outpatient R ESTEVAN ADAMS [facility] [id number] [facility] 2023-08-29 10:45:00 2023-08-29 10:45:00 Outpatient YAN GRAHAM [facility] [id number] [facility] 2023-02-21 15:00:00 2023-02-21 15:00:00 Outpatient R ESTEVAN ADAMS [facility] [id number] [facility] 2023-01-28 00:00:00 2023-01-28 00:00:00 Outpatient GC_GCBZW_Ka diyala_S PRIV PRIV [id number] [facility] 2023-01-22 08:30:00 2023-01-22 08:30:00 Outpatient R ESTEVAN ADAMS [facility] [id number] [facility] 2023-01-19 00:00:00 2023-01-19 00:00:00 Outpatient GC_GCBZW_Ka diyala_S PRIV PRIV [id number] [facility] 2023-01-18 00:00:00 2023-01-18 00:00:00 Outpatient GC_GCBZW_Ka diyala_S PRIV PRIV [id number] [facility] 2023-01-18 00:00:00 2023-01-18 00:00:00 Telephone Estevan Adams [facility] LAMINATOR PREFORMS [facility] MATERNAL & [facility] ..840.114 350.1.13.10 4.2.7.2.686 [id number] 107 [id number] [facility] 2023-01-14 14:00:00 2023-01-14 14:00:00 Outpatient R ALEKS-JANETT S, OMKAR ALEKS-JANETT S, OMKAR [facility] [id number] [facility] 2022-12-04 00:00:00 2022-12-04 00:00:00 Telephone Jessika Manrique [facility] L[facility] 1..840.114 350.1.13.10 4.2.7.2.686 [id number] [facility] 2022-12-02 19:00:00 2022-12-02 19:35:03 Outpatient R JESSIKA MANRIQUE [facility] [id number] [facility] 2022-12-02 19:00:00 2022-12-02 19:20:00 Urgent Care Jessika Manrique Unknown, [facility] 1.2840.114 350.1.13.10 4.2.7.2.686 [id number] 370 [id number] [facility] 2022-10-04 00:00:00 2022-10-04 00:00:00 Telephone Jennifer Puri [facility] LAMINATOR PREFORMS [facility] & CHILD [facility] 1.2840.114 350.1.13.10 4.2.7.2.686 [id number] 107 [id number] [facility] 2022-10-02 13:30:00 2022-10-02 14:31:55 Outpatient R JENNIFER PURI [facility] [id number] [facility] 2022-10-02 13:30:00 2022-10-02 14:31:55 Office Visit Jennifer Puri [facility] LAMINATOR PREFORMS [facility] CHILD [facility] 1.2.840.114 350.1.13.10 4.2.7.2.686 [id number] 107 [id number] [facility] 2022-10-02 00:00:00 2022-10-02 00:00:00 Orders Only Doctor Unassigned, Effort [facility] 1.840.114 350.1.13.10 4.2.7.2.686 [id number] [facility] 2022-07-04 13:15:00 2022-07-04 13:15:00 Outpatient SIRIA MAGAAN [facility] [id number] [facility] 2022-07-04 13:15:00 2022-07-04 13:15:00 Outpatient SIRIA MAGANA [facility] [id number] [facility] 2022-07-04 13:00:00 2022-07-04 13:00:00 Outpatient SIRIA MAGANA [facility] [id number] [facility] 2022-04-30 10:00:00 2022-04-30 10:30:00 Office Visit Estevan Adams [facility] LAMINATOR PREFORMS [facility] & CHILD [facility] 1.2.840.114 350.1.13.10 4.2.7.2.686 [id number] 107 [id number] [facility] 2022-04-30 10:00:00 2022-04-30 10:00:00 Outpatient R ESTEVAN ADAMS [facility] [id number] [facility] 2022-04-30 00:00:00 2022-04-30 00:00:00 Orders Only Doctor Unassigned, Effort [facility] 1.2.840.114 350.1.13.10 4.2.7.2.686 [id number] [facility] 2022-04-19 09:30:00 2022-04-19 10:05:06 Outpatient R ESTEVAN ADAMS [facility] [id number] [facility] 2022-04-19 09:30:00 2022-04-19 10:05:06 Office Visit Estevan Adams [facility] LAMINATOR PREFORMS [facility] & [facility]ILD [facility] 1.2.840.114 350.1.13.10 4.2.7.2.686 [id number] 107 [id number] [facility] 2022-04-19 00:00:00 2022-04-19 00:00:00 Letter (Out) Estevan Adams [facility] LAMINATOR PREFORMS [facility] CH[facility] 1..840.114 350.1.13.10 4.2.7.2.686 [id number] 107 [id number] [facility] 2022-03-07 09:45:00 2022-03-07 09:45:00 Outpatient R SIRIA ANDERSON [facility] [id number] [facility] 2022-03-03 09:22:00 2022-03-03 12:44:00 Emergency X TIANA ANTONIO [facility] ERT [id number] [facility] 2022-03-03 09:22:00 2022-03-03 12:44:00 Emergency Tiana Antonio E [facility] 1.84.114 350.1.13.10 4.2.7.2.686 [id number] [facility] 2022-02-18 00:00:00 2022-02-18 00:00:00 Refill Estevan Adams [facility] LAMINATOR PREFORMS [facility] & [facility]ILD [facility] 1.840.114 350.1.13.10 4.2.7.2.686 [id number] 107 [id number] [facility] 2022-02-14 13:30:00 2022-02-14 14:35:37 Nurse Visit Visit, [facility] Nurse Jennifer Puri [facility] LAMINATOR PREFORMS [facility] & [facility]ILD [facility] 1.840.114 350.1.13.10 4.2.7.2.686 [id number] 107 [id number] [facility] 2022-02-14 14:30:00 2022-02-14 14:30:00 Outpatient JENNIFER BALL [facility] [id number] [facility] 2022-02-14 13:30:00 2022-02-14 13:30:00 Outpatient JENNIFER BALL [facility] [id number] [facility] 2022-02-14 00:00:00 2022-02-14 00:00:00 Orders Only Doctor Unassigned, Effort [facility] 1.84.114 350.1.13.10 4.2.7.2.686 [id number] [facility] 2022-02-14 00:00:00 2022-02-14 00:00:00 Telephone Siria Anderson [facility] LAMINATOR PREFORMS [facility] & [facility]ILD [facility] 1.840.114 350.1.13.10 4.2.7.2.686 [id number] 107 [id number] [facility] 2022-02-06 00:00:00 2022-02-06 00:00:00 Telephone Estevan Adams [facility] LAMINATOR PREFORMS [facility] CHILD [facility] 1.2840.114 350.1.13.10 4.2.7.2.686 [id number] 107 [id number] [facility] 2022-01-24 17:20:00 2022-01-24 17:28:54 Outpatient R JESSIKA MANRIQUE [facility] [id number] [facility] 2022-01-24 17:20:00 2022-01-24 17:28:54 Urgent Care Jessika Manrique Unknown, Attending [facility] 1..114 350.1.13.10 4.2.7.2.686 [id number] 370 [id number] [facility] 2022-01-01 00:00:00 2022-01-01 00:00:00 Refill Estevan Adams [facility] LAMINATOR PREFORMS [facility] 1.840.114 350.1.13.10 4.2.7.2.686 [id number] 107 [id number] [facility] 2022-01-01 00:00:00 2022-01-01 00:00:00 Telephone Estevan Adams [facility] LAMINATOR PREFORMS [facility] CH[facility] 1.2840.114 350.1.13.10 4.2.7.2.686 [id number] 107 [id number] [facility] 2021-12-29 00:00:00 2021-12-29 00:00:00 Refill Estevan Adams [facility] LAMINATOR PREFORMS [facility] & [facility]ILD [facility] 1.2840.114 350.1.13.10 4.2.7.2.686 [id number] 107 [id number] [facility] 2021-12-06 08:15:00 2021-12-06 08:54:24 Office Visit Estevan Adams [facility] LAMINATOR PREFORMS [facility] & [facility]ILD [facility] 1.840.114 350.1.13.10 4.2.7.2.686 [id number] [facility] 2021-12-06 08:15:00 2021-12-06 08:54:24 Outpatient R ESTEVAN ADAMS [facility] [id number] [facility] 2021-12-06 08:15:00 2021-12-06 08:15:00 Outpatient R ESTEVAN ADAMS [facility] [id number] [facility] 2021-11-22 15:15:00 2021-11-22 15:15:00 Outpatient R ESTEVAN ADAMS [facility] [id number] [facility] 2021-11-21 00:00:00 2021-11-21 00:00:00 Telephone Siria Anderson [facility] LAMINATOR PREFORMS [facility] .0.114 350.1.13.10 4.2.7.2.686 [id number] 107 [id number] [facility] 2021-11-20 00:00:00 2021-11-20 00:00:00 Telephone Siria Anderson [facility] LAMINATOR PREFORMS [facility] & [facility] .840.114 350.1.13.10 4.2.7.2.686 [id number] 107 [id number] [facility] 2021-09-03 00:00:00 2021-09-03 00:00:00 Refill Siria Anderson [facility] LAMINATOR PREFORMS [facility] & [facility]ILD [facility] 1..840.114 350.1.13.10 4.2.7.2.686 [id number] 107 [id number] [facility] 2021-07-04 12:45:00 2021-07-04 13:31:36 Office Visit Siria Anderson [facility] LAMINATOR PREFORMS [facility] MATERNAL & [facility] 1.2.840.114 350.1.13.10 4.2.7.2.686 [id number] 107 [id number] [facility] 2021-07-04 12:45:00 2021-07-04 13:31:36 Outpatient SIRIA MAGANA [facility] [id number] [facility] 2021-07-04 12:45:00 2021-07-04 12:45:00 Outpatient SIRIA MAGANA [facility] [id number] [facility] 2021-07-04 00:00:00 2021-07-04 00:00:00 Telephone Jenna [facility] 1..840.114 350.1.13.10 4.2.7.2.686 [id number] [facility] 2021-07-03 18:20:00 2021-07-03 18:53:48 Outpatient JESSIKA MCGUIRE [facility] [id number] [facility] 2021-07-03 18:20:00 2021-07-03 18:53:48 [facility] 1.2.840.114 350.1.13.10 4.2.7.2.686 [id number] 370 [id number] [facility] 2021-07-03 18:20:00 2021-07-03 18:53:48 Outpatient JESSIKA MCGUIRE [facility] [id number] [facility] 2021-07-03 09:30:00 2021-07-03 09:30:00 Outpatient EASTON RIOJAS [id number] [facility] 2021-07-03 08:15:00 2021-07-03 08:15:00 Outpatient EASTON RIOJAS [id number] [facility] 2021-07-03 00:00:00 2021-07-03 00:00:00 Patient Secure Siria Paulino Divya [facility] LAMINATOR PREFORMS [facility] & [facility]ILD [facility] ..114 350.1.13.10 4.2.7.2.686 [id number] 107 [id number] [facility] 2021-06-21 13:00:00 2021-06-21 14:53:50 Outpatient R SIRIA ANDERSON [facility] [id number] [facility] 2021-06-21 13:00:00 2021-06-21 14:53:50 Office Visit Anette Andersonking [facility] LAMINATOR PREFORMS [facility] CHILD [facility] ..114 350.1.13.10 4.2.7.2.686 [id number] 107 [id number] [facility] 2021-06-21 13:00:00 2021-06-21 14:53:50 Outpatient R SIRIA ANDERSON [facility] [id number] [facility] 2021-05-31 08:00:00 2021-05-31 09:04:36 Outpatient R SIRIA ANDERSON [facility] [id number] [facility] 2021-05-31 08:00:00 2021-05-31 09:04:36 Routine Visit Luda Andersonpaulettemataking Stokes [facility] ..114 350.1.13.10 4.2.7.2.686 [id number] 107 [id number] [facility] 2021-05-29 00:00:00 2021-05-29 00:00:00 Patient Secure Siria Paulino Divya [facility] LAMINATOR PREFORMS [facility] & [facility]ILD [facility] .840.114 350.1.13.10 4.2.7.2.686 [id number] 107 [id number] [facility] 2021-05-19 00:00:00 2021-05-19 00:00:00 Telephone Estevan Adams [facility] LAMINATOR PREFORMS [facility] & [facility] 1..114 350.1.13.10 4.2.7.2.686 [id number] 107 [id number] [facility] 2021-05-17 13:00:00 2021-05-17 13:00:00 Nurse Visit Nurse, Naun Lima Exp Cprit Obgyn Siria Anderson [facility] LAMINATOR PREFORMS [facility] CHILD [facility] 1..114 350.1.13.10 4.2.7.2.686 [id number] 107 [id number] [facility] 2021-05-17 13:00:00 2021-05-17 08:46:02 Outpatient R SIRIA ANDERSON [facility] [id number] [facility] 2021-05-17 08:00:00 2021-05-17 08:45:55 Nurse Visit Visit, AbdichSiria Epperson [facility] LAMINATOR PREFORMS [facility] 1..114 350.1.13.10 4.2.7.2.686 [id number] 107 [id number] [facility] 2021-05-09 17:42:00 2021-05-12 16:52:00 Inpatient P JODEE ALMAZAN [facility] REZA [id number] [facility] 2021-05-09 17:42:00 2021-05-12 16:52:00 Hospital Encounter Jodee Almazan [facility] 1..114 350.1.13.10 4.2.7.2.686 [id number] [facility] 2021-05-10 17:00:00 2021-05-10 18:47:00 Surgery Zbigniew Fernandez [facility] 1..114 350.1.13.10 4.2.7.2.686 [id number] [facility] 2021-05-10 09:54:00 2021-05-10 18:34:00 Anesthesia Event Glen Mcgraw, [facility] 1.840.114 350.1.13.10 4.2.7.2.686 [id number] [facility] 2021-05-09 13:15:00 2021-05-09 14:00:22 Outpatient R LUDA ANDERSONKALI [facility] [id number] [facility] 2021-05-09 13:15:00 2021-05-09 14:00:22 Routine Visit Justin Siria Stokes [facility] LAMINATOR PREFORMS [facility] MATERNAL & CHILD [facility] 1..114 350.1.13.10 4.2.7.2.686 [id number] 107 [id number] [facility] 2021-05-02 15:30:00 2021-05-02 15:58:07 Outpatient R LUDA ANDERSONKALI [facility] [id number] [facility] 2021-05-02 15:30:00 2021-05-02 15:58:07 Routine Visit Luda Andersonkali Stokes [facility] LAMINATOR PREFORMS [facility] & CHILD [facility] 1..114 350.1.13.10 4.2.7.2.686 [id number] 107 [id number] [facility] 2021-05-02 00:00:00 2021-05-02 00:00:00 Abstract Luda Andersonkali [facility] LAMINATOR PREFORMS [facility] & CHILD [facility] 1..114 350.1.13.10 4.2.7.2.686 [id number] 107 [id number] [facility] 2021-04-28 09:30:00 2021-04-28 10:00:00 Mc Kay Machine Operator Visit Ultrasound, Katelyn Whiting [facility] LAMINATOR PREFORMS [facility] & CHILD [facility] 1..840.114 350.1.13.10 4.2.7.2.686 [id number] [facility] 2021-04-28 09:30:00 2021-04-28 09:30:00 Outpatient P [facility] [id number] [facility] 2021-04-28 09:30:00 2021-04-28 09:30:00 Outpatient P [facility] [id number] [facility] 2021-04-28 09:30:00 2021-04-28 09:30:00 Outpatient P KATELYN CRUZ SHANNON [facility] [id number] [facility] 2021-04-25 15:30:00 2021-04-25 16:19:38 Outpatient R SIRIA ANDERSON [facility] [id number] [facility] 2021-04-25 15:30:00 2021-04-25 16:19:38 Routine Visit Siria Anderson [facility] LAMINATOR PREFORMS [facility] ..840.114 350.1.13.10 4.2.7.2.686 [id number] 107 [id number] [facility] 2021-04-25 15:30:00 2021-04-25 15:30:00 Outpatient R SIRIA ADNERSON [facility] [id number] [facility] 2021-04-24 15:30:00 2021-04-24 15:30:00 Outpatient P [facility] [id number] [facility] 2021-04-21 00:00:00 2021-04-21 00:00:00 Telephone Siria Anderson [facility] LAMINATOR PREFORMS [facility] & CHILD [facility] 1..840.114 350.1.13.10 4.2.7.2.686 [id number] 107 [id number] [facility] 2021-04-19 13:15:00 2021-04-19 13:15:00 Outpatient R SIRIA ANDERSON [facility] [id number] [facility] 2021-04-19 13:15:00 2021-04-19 13:15:00 [employer] Machine Operator Visit Lab, [facility] Siria Anderson [facility] LAMINATOR PREFORMS [facility] 1..840.114 350.1.13.10 4.2.7.2.686 [id number] 107 [id number] [facility] 2021-04-19 13:00:00 2021-04-19 13:00:00 Outpatient P [facility] [id number] [facility] 2021-04-19 00:00:00 2021-04-19 00:00:00 Telephone Siria Anderson [facility] LAM[facility] PRE[facility]MS [facility] 1..840.114 350.1.13.10 4.2.7.2.686 [id number] 107 [id number] [facility] 2021-04-18 15:30:00 2021-04-18 16:11:31 Outpatient R SIRIA ANDERSON [facility] [id number] [facility] 2021-04-18 15:30:00 2021-04-18 16:11:31 Routine Visit Siria Anderson [facility] LAMINATOR PRE[facility]MS [facility] 1..840.114 350.1.13.10 4.2.7.2.686 [id number] 107 [id number] [facility] 2021-04-18 15:30:00 2021-04-18 16:11:31 Outpatient R ANETTE ANDERSONKing [facility] [id number] [facility] 2021-04-18 15:30:00 2021-04-18 15:30:00 Outpatient R SIRIA ANDERSON [facility] [id number] [facility] 2021-04-11 13:00:00 2021-04-11 14:15:13 Outpatient R ANDERSONSIRIA Salinas [facility] [id number] [facility] 2021-04-11 13:00:00 2021-04-11 14:15:13 Outpatient Divya ANDERSONSIRIA [facility] [id number] [facility] 2021-04-11 13:00:00 2021-04-11 14:15:13 Routine Visit Siria Anderson [facility] LAMIN[facility] PREFORMS [facility] 1.2.840.114 350.1.13.10 4.2.7.2.686 [id number] 107 [id number] [facility] 2021-04-11 13:00:00 2021-04-11 13:00:00 Outpatient SIRIA MAGANA [facility] [id number] [facility] 2021-03-29 00:00:00 2021-03-29 00:00:00 Telephone Siria Anderson [facility] LAMIN[facility] PREFORMS [facility] 1..840.114 350.1.13.10 4.2.7.2.686 [id number] 107 [id number] [facility] 2021-03-22 14:30:00 2021-03-22 14:51:40 Outpatient Divya SIRIA ANDERSON [facility] [id number] [facility] 2021-03-22 14:30:00 2021-03-22 14:51:40 Routine Visit Siria Anderson Antonio F [facility] LAMINATOR PREFORMS [facility] & CHILD [facility] 1.2.840.114 350.1.13.10 4.2.7.2.686 [id number] 107 [id number] [facility] 2021-03-22 14:30:00 2021-03-22 14:30:00 Outpatient SIRIA MAGANA [facility] [id number] [facility] 2021-03-22 14:00:00 2021-03-22 14:30:00 Mc Kay Machine Operator Visit Ultrasound, Ang-Mfm Siria Anderson Antonio F [facility] LAMINATOR PREFORMS [facility] MATERNAL & [facility] 1.2.840.114 350.1.13.10 4.2.7.2.686 [id number] [facility] 2021-03-22 00:00:00 2021-03-22 00:00:00 Abstract Justin Siria Stokes [facility] LAMINATOR PREFORMS [facility] 1.2.840.114 350.1.13.10 4.2.7.2.686 [id number] 107 [id number] [facility] 2021-03-15 00:00:00 2021-03-15 00:00:00 Patient Secure Msg Anderson, Siria Stokes [facility] LAMINATOR PREFORMS [facility] 1.2.840.114 350.1.13.10 4.2.7.2.686 [id number] [facility] 2021-03-14 00:00:00 2021-03-14 00:00:00 Telephone AndersonSiria [facility] LAMINATOR PREFORMS [facility]ILD [facility] 1.2.840.114 350.1.13.10 4.2.7.2.686 [id number] 107 [id number] [facility] 2021-03-13 00:00:00 2021-03-13 00:00:00 RefAaron Concepcion [facility] LAMINATOR PREFORMS [facility] MATERNAL & CHILD [facility] 1.2.840.114 350.1.13.10 4.2.7.2.686 [id number] [facility] 2021-03-13 00:00:00 2021-03-13 00:00:00 Refill Siria Anderson [facility] LAMINATOR PREFORMS [facility] & [facility]ILD [facility] 1.2.840.114 350.1.13.10 4.2.7.2.686 [id number] 107 [id number] [facility] 2021-03-10 00:00:00 2021-03-10 00:00:00 Siria Lechuga [facility] LAMINATOR PREFORMS [facility] 1.2.840.114 350.1.13.10 4.2.7.2.686 [id number] 107 [id number] [facility] 2021-03-10 00:00:00 2021-03-10 00:00:00 Aaron Dykes [facility] LAMINATOR PREFORMS [facility] MATERNAL & CHILD [facility] 1.2.840.114 350.1.13.10 4.2.7.2.686 [id number] [facility] 2021-03-09 15:45:00 2021-03-09 16:18:23 Outpatient R SIRIA ANDERSON [facility] [id number] [facility] 2021-03-09 15:45:00 2021-03-09 16:18:23 Routine Visit Siria Anderson [facility] LAMINATOR PREFORMS [facility] 1.2840.114 350.1.13.10 4.2.7.2.686 [id number] 107 [id number] [facility] 2021-03-09 00:00:00 2021-03-09 00:00:00 Aaron Dykes [facility] LAMINATOR PREFORMS [facility] & CHILD [facility] 1.2.840.114 350.1.13.10 4.2.7.2.686 [id number] [facility] 2021-03-09 00:00:00 2021-03-09 00:00:00 Siria Lechuga [facility] LAMINATOR PREFORMS [facility]ILD [facility] 1.2.840.114 350.1.13.10 4.2.7.2.686 [id number] 107 [id number] [facility] 2021-03-08 15:45:00 2021-03-08 15:45:00 Outpatient Divya JUSTIN LUDAKALI [facility] [id number] [facility] 2021-02-22 10:00:00 2021-02-22 11:57:26 Outpatient R AARON ALICEA [facility] [id number] [facility] 2021-02-22 09:59:09 2021-02-22 11:57:26 Routine Visit Provider, Aaron Barlow [facility] LAMINATOR PREFORMS [facility] 1..840.114 350.1.13.10 4.2.7.2.686 [id number] 107 [id number] [facility] 2021-02-13 10:52:00 2021-02-13 11:22:00 Mc Kay Machine Operator Visit Ultrasound, Silvana Ruff [facility] LAMINATOR PREFORMS [facility] 1.840.114 350.1.13.10 4.2.7.2.686 [id number] [facility] 2021-02-13 10:45:00 2021-02-13 10:45:00 Outpatient SILVANA WESLEY SANGEETA [facility] [id number] [facility] 2021-02-13 00:00:00 2021-02-13 00:00:00 Case Management Bo Rivera [facility] .840.114 350.1.13.10 4.2.7.2.686 [id number] 107 [id number] [facility] 2021-02-03 00:00:00 2021-02-03 00:00:00 Telephone Aaron Alicea [facility] LAMINATOR PREFORMS [facility] & CHILD [facility] 1..840.114 350.1.13.10 4.2.7.2.686 [id number] [facility] 2021-02-01 10:45:00 2021-02-01 11:09:09 Outpatient R BO RIVERA [facility] [id number] [facility] 2021-02-01 10:04:55 2021-02-01 11:09:09 Routine Visit Provider, Naun-Rmchp Bo Jorgensen [facility] LAMINATOR PREFORMS [facility] 1..840.114 350.1.13.10 4.2.7.2.686 [id number] 107 [id number] [facility] 2021-01-31 00:00:00 2021-01-31 00:00:00 Refill [facility] MEDICAL OFFICE BUILDING 1..840.114 350.1.13.10 4.2.7.2.686 [id number] 370 [id number] [facility] 2021-01-30 00:00:00 2021-01-30 00:00:00 Telephone Aaron Alicea [facility] LAMINATOR PREFORMS [facility] 1..840.114 350.1.13.10 4.2.7.2.686 [id number] 107 [id number] [facility] 2021-01-29 00:00:00 2021-01-29 00:00:00 Refill Siria Anderson [facility] LAMINATOR PREFORMS [facility] 1.840.114 350.1.13.10 4.2.7.2.686 [id number] 107 [id number] [facility] 2021-01-29 00:00:00 2021-01-29 00:00:00 Refill Onofre [facility] MEDICAL OFFICE BUILDING 1.840.114 350.1.13.10 4.2.7.2.686 [id number] 370 [id number] [facility] 2021-01-19 14:40:00 2021-01-19 15:06:44 Outpatient R DARWIN PEÑAY [facility] [id number] [facility] 2021-01-19 14:22:57 2021-01-19 15:06:44 [facility] 1.2.840.114 350.1.13.10 4.2.7.2.686 [id number] 370 [id number] [facility] 2021-01-04 00:00:00 2021-01-04 00:00:00 Telephone Siria Anderson [facility] LAMINATOR PREFORMS [facility]ILD [facility] 1.2.840.114 350.1.13.10 4.2.7.2.686 [id number] 107 [id number] [facility] 2021-01-03 00:00:00 2021-01-03 00:00:00 Telephone Siria Anderson [facility] LAMINATOR PREFORMS [facility]ILD [facility] 1.20.114 350.1.13.10 4.2.7.2.686 [id number] 107 [id number] [facility] 2021-01-03 00:00:00 2021-01-03 00:00:00 Telephone AndersonSiria [facility] LAMINATOR PREFORMS [facility] 1.2.840.114 350.1.13.10 4.2.7.2.686 [id number] 107 [id number] [facility] 2021-01-02 10:45:39 2021-01-02 11:10:03 Routine Visit Provider, Naun-ZanderchAaron Todd [facility] LAMINATOR PREFORMS [facility] CHILD [facility] 1.2.0.114 350.1.13.10 4.2.7.2.686 [id number] 107 [id number] [facility] 2021-01-02 10:45:00 2021-01-02 10:45:00 Outpatient R [facility] [id number] [facility] 2020-12-21 10:52:25 2020-12-21 11:26:21 Office Visit Palmira Phillips [facility] .114 350.1.13.10 4.2.7.2.686 [id number] [facility] 2020-12-21 10:30:00 2020-12-21 10:30:00 Outpatient P [facility] [id number] [facility] 2020-12-19 08:20:30 2020-12-19 09:35:30 Mc Kay Machine Operator Visit Ultrasound, Gianni Virk [facility] LAMINATOR PREFORMS [facility]ERNAL & [facility] 1..114 350.1.13.10 4.2.7.2.686 [id number] [facility] 2020-12-19 08:00:00 2020-12-19 08:00:00 Outpatient P [facility] [id number] [facility] 2020-12-19 00:00:00 2020-12-19 00:00:00 Abstract AndersonSiria [facility] LAMINATOR PREFORMS [facility]ERNAL & [facility] 1..114 350.1.13.10 4.2.7.2.686 [id number] 107 [id number] [facility] 2020-12-07 00:00:00 2020-12-07 00:00:00 Telephone Siria Anderson [facility] LAMINATOR PREFORMS [facility] & CHILD [facility] 1..114 350.1.13.10 4.2.7.2.686 [id number] 107 [id number] [facility] 2020-12-05 10:15:59 2020-12-05 10:54:56 Routine Visit Siria Anderson [facility] LAMINATOR PREFORMS [facility]ILD [facility] 1..114 350.1.13.10 4.2.7.2.686 [id number] 107 [id number] [facility] 2020-12-05 10:15:59 2020-12-05 10:54:56 Routine Visit Anette Andersonking Stokes [facility] LAMINATOR PREFORMS [facility] CHILD [facility] 1.2.840.114 350.1.13.10 4.2.7.2.686 [id number] 107 [id number] [facility] 2020-12-05 10:15:00 2020-12-05 10:15:00 Outpatient R LUDA ANDERSONKALI [facility] [id number] [facility] 2020-11-07 08:42:18 2020-11-07 09:41:48 Routine Visit Luda Andersonkali Stokes [facility] LAMINATOR PREFORMS [facility] 1..840.114 350.1.13.10 4.2.7.2.686 [id number] 107 [id number] [facility] 2020-11-07 08:45:00 2020-11-07 08:45:00 Outpatient R LUDA ANDERSONAKLI [facility] [id number] [facility] 2020-11-01 00:00:00 2020-11-01 00:00:00 Telephone AndersonSiria [facility] LAMINATOR PREFORMS [facility] CHILD [facility] 1..840.114 350.1.13.10 4.2.7.2.686 [id number] 107 [id number] [facility] 2020-10-27 00:00:00 2020-10-27 00:00:00 Patient Secure Msg Doctor Unassigned, Effort [facility] 1..840.114 350.1.13.10 4.2.7.2.686 [id number] [facility] 2020-10-27 00:00:00 2020-10-27 00:00:00 Telephone AndersonSiria [facility] LAMINATOR PREFORMS [facility] 1.2.840.114 350.1.13.10 4.2.7.2.686 [id number] 107 [id number] [facility] 2020-10-26 00:00:00 2020-10-26 00:00:00 Telephone AndersonSiria [facility] LAMINATOR PREFORMS [facility] & CHILD [facility] 1.2.840.114 350.1.13.10 4.2.7.2.686 [id number] 107 [id number] [facility] 2020-10-19 13:59:38 2020-10-19 14:29:38 Mc Kay Machine Operator Visit Ultrasound, Cristin Jones [facility] LAMINATOR PREFORMS [facility] CHILD [facility] 1.2.840.114 350.1.13.10 4.2.7.2.686 [id number] [facility] 2020-10-19 14:00:00 2020-10-19 14:00:00 Outpatient P [facility] [id number] [facility] 2020-10-19 00:00:00 2020-10-19 00:00:00 Abstract Siria Anderson [facility] LAMINATOR PREFORMS [facility] CHILD [facility] 1.2.840.114 350.1.13.10 4.2.7.2.686 [id number] 107 [id number] [facility] 2020-10-10 08:57:06 2020-10-10 09:57:15 Initial Visit Siria Anderson [facility] LAMINATOR PREFORMS [facility] CHILD [facility] 1.2.840.114 350.1.13.10 4.2.7.2.686 [id number] 107 [id number] [facility] 2020-10-10 08:30:00 2020-10-10 08:30:00 Outpatient R [facility] [id number] [facility] 2020-10-10 00:00:00 2020-10-10 00:00:00 Orders Only Doctor Unassigned, Effort [facility] 1.114 350.1.13.10 4.2.7.2.686 [id number] [facility] 2020-06-24 16:00:00 2020-06-24 16:00:00 Outpatient R [facility] [id number] [facility] 2020-06-24 11:27:53 2020-06-24 11:49:24 Office Visit Leny [facility] Building 1.114 350.1.13.10 4.2.7.2.686 [id number] [facility] 2020-06-24 11:00:00 2020-06-24 11:00:00 Outpatient R [facility] [id number] [facility] 2020-06-14 00:00:00 2020-06-14 00:00:00 Patient Outreach Reji Cruz [facility] 1..114 350.1.13.10 4.2.7.2.686 [id number] [facility] 2020-06-08 19:38:00 2020-06-09 12:50:00 Emergency Ann, Zoe Saravia [facility] 1..114 350.1.13.10 4.2.7.2.686 [id number] [facility] 2020-06-08 18:59:31 2020-06-08 19:19:31 Urgent Care Provider, Naun [facility] Saadia Lovett [facility] Office [facility] 1..114 350.1.13.10 4.2.7.2.686 [id number] [facility] 2020-06-08 18:40:00 2020-06-08 18:40:00 Outpatient R SAADIA LOVETT [facility] [id number] [facility] 2020-05-24 13:16:03 2020-05-24 14:05:26 [facility] 1.84.114 350.1.13.10 4.2.7.2.686 [id number] [facility] 2020-05-24 13:00:00 2020-05-24 13:00:00 Outpatient R OMAR [facility] [id number] [facility] 2020-05-19 13:00:00 2020-05-19 13:00:00 Outpatient R BARBYYOVANY [facility] [id number] [facility] 2020-05-19 00:00:00 2020-05-19 00:00:00 Orders Only Doctor Unassigned, Effort [facility] 1..114 350.1.13.10 4.2.7.2.686 [id number] [facility] 2020-03-28 19:14:32 2020-03-28 19:51:01 Urgent Care Amaya Peña [facility] Office [facility] 1.84.114 350.1.13.10 4.2.7.2.686 [id number] [facility] 2020-03-28 19:20:00 2020-03-28 19:20:00 Outpatient R [facility] [id number] [facility] 2020-03-28 00:00:00 2020-03-28 00:00:00 Letter (Out) Doctor Unassigned, Effort [facility] 1.84.114 350.1.13.10 4.2.7.2.686 [id number] [facility] 2020-01-15 08:15:00 2020-01-15 08:15:00 Outpatient R JAIME CLEMENT [facility] [id number] [facility] 2019-03-12 14:26:14 2019-03-12 23:59:00 Outpatient JAIME CLEMENT [facility] [id number] [facility] Results Test Description Test Time Test Comments Results Result Co mments Source [facility] with [id number] 06:29:27* Test Item Value Reference Range Interpretation [...] g/dL 31.6-35.1 L RDW-SD (test code = 96315-6) 39.6 fL 39.0-49.9 RDW-CV (test code = 788-0) 13.7 % 12.0-15.5 PLT (test code = 777-3) 426 166-358 H MPV (test code = 74372-8) 10.1 fL 9.5-12.9 NRBC/100 WBC (test code = 3633476157) 0.0 0.0-10.0 NRBC x10^3 (test code = 9794557302) See_Comment [Automated messa ge] The system which generated this result transmitted reference range: 10*3/?L. The reference range was not used to interpret this result as normal/abnormal. GRAN MAT (NEUT) % (test code = 770-8) 55.7 % IMM GRAN % (test code = 1491980114) 0.40 % LYMPH % (test code = 736-9) 37.1 % MONO % (test code = 5905-5) 5.6 % EOS % (test code = 713-8) 0.8 % BASO % (test code = 706-2) 0.4 % GRAN MAT x10^3(ANC) (test code = 7088823508) 5.34 10*3/uL 1.88-7.09 IMM GRAN x10^3 (test code = 0376606872) 0.04 10*3/uL 0.00-0.06 LYMPH x10^3 (test code = 731-0) 3.56 10*3/uL 1.32-3.29 H MONO x10^3 (test code = 742-7) 0.54 10*3/uL 0.33-0.92 EOS x10^3 (test code = 711-2) 0.08 10*3/uL 0.03-0.39 BASO x10^3 (test code = 704-7) 0.04 10*3/uL 0.01-0.07 Lab Interpretation (test code = 58449-1) Abnormal [facility] [id number] 05:12:00* Test Item Value Reference Range Interpretation Comme nts POCT PREG (test code = 1605) Negative On board controls acceptable with C Line (test code = 3574) Yes POCT PREG LOT # (test code = 3575 280689 POCT PREG TEST DATE ( test code = 3576) 2025-03-09 Lab Interpretation (test cod e = 56723-2) Normal [facility] SARS-COV-2 ANTIGEN (BINAX NOW)2022-12-03 00:31:00* Test Item Value Reference Range Interpretation Comme nts POCT SARS-COV-2 ANTIGEN (test code = 31700-0) Not Detected Not Detected On board controls acceptable with C Line (test code = 3574) Yes VASHTI (test code = VASHTI) accurate developme nt and interpretation of all internal controls Lab Interpretation (test code = 03929-1) [facility] [id number] 16:24:15* Test Item Value Reference Range Interpretation Comme nts Syphilis IgG/IgM (test code = 74061-5) Non-reactive Non-reactive VASHTI (test code = VASHTI) Non-reactive - No serologic evidence of T. pallidum infection. Cannot exclude incubating or early syphilis. Submit a second specimen in 2-4 weeks if syphilis is clinically suspected. Equivocal - Further testing to follow. Reactive - Further testing to follow. Lab Interpretation (test code = 48674-7) [facility]ILIS [id number] 16:24:15* Test Item Value Reference Range Interpretation Comme nts Syphilis IgG/IgM (test code = 45099-6) Non-reactive Non-reactive VASHTI (test code = VASHTI) Non-reactive - No serologic evidence of T. pallidum infection. Cannot exclude incubating or early syphilis. Submit a second specimen in 2-4 weeks if syphilis is clinically suspected. Equivocal - Further testing to follow. Reactive - Further testing to follow. Lab Interpretation (test code = 60879-5) [facility] (A1C)2022-10-03 07:09:19* Test Item Value Reference Range Interpretation Comme nts HGB A1C (test code = 4548-4) 5.3 % 4.0-5.7 VASHTI (test code = VASHTI) Reference RangesNormal: <5.7%Prediabetes: 5.7 - 6.4%Diabetes: > 6.5% Lab Interpretation (test code = 96934-8) Normal [facility]A1C)2022-10-03 07:09:19* Test Item Value Reference Range Interpretation Comme nts HGB A1C (test code = 4548-4) 5.3 % 4.0-5.7 VASHTI (test code = VASHTI) Reference RangesNormal: <5.7%Prediabetes: 5.7 - 6.4%Diabetes: > 6.5% Lab Interpretation (test code = 28158-2) [facility] AG-AB WITH [id number] 06:09:39* Test Item Value Reference Range Interpretation Comme nts HIV Semi-quantitative (test code = 17418-3) 0.09 Negative VASHTI (test code = VASHTI) Non-reactive for HIV-1 antigen and HIV-1/HIV-2 antibodies. ?No laboratory evidence of HIV infection. ?Repeat in 2-4 weeks if acute HIV infection is suspected. [facility] [id number] 06:09:39* Test Item Value Reference Range Interpretation Comme nts HCV Ab (test code = 58133-0) Negative HCV Semi-Quantitative (test code = 60794-7) 0.03 [facility] AG-AB WITH [id number] 06:09:39* Test Item Value Reference Range Interpretation Comme nts HIV Semi-quantitative (test code = 74069-9) 0.09 Negative VASHTI (test code = VASHTI) Non-reactive for HIV-1 antigen and HIV-1/HIV-2 antibodies. ?No laboratory evidence of HIV infection. ?Repeat in 2-4 weeks if acute HIV infection is suspected. [facility] [id number] 06:09:39* Test Item Value Reference Range Interpretation Comme nts HCV Ab (test code = 07143-4) Negative HCV Semi-Quantitative (test code = 18357-3) 0.03 [facility] WITH [id number] 05:35:17* Test Item Value Reference Range Interpretation Comme nts WBC (test code = 6690-2) 9.97 See_Comment [Automated [employer] ge] The system which generated this result transmitted reference range: 4.30 - 11.10 10*3/?L. The reference range was not used to interpret this result as normal/abnormal. RBC (test code = 789-8) 5.20 See_Comment [Automated [employer] ge] The system which generated this result [...] 31.7 g/dL 31.6-35.1 RDW-SD (test code = 51880-3) 38.7 fL 39.0-49.9 L RDW-CV (test code = 788-0) 13.0 % 12.0-15.5 PLT (test code = 777-3) 442 See_Comment H [Automated messa ge] The system which generated this result transmitted reference range: 166 - 358 10*3/?L. The reference range was not used to interpret this result as normal/abnormal. MPV (test code = 36780-0) 10.9 fL 9.5-12.9 NRBC/100 WBC (test code = [id number]) 0.0 See_Comment [Automated [employer] ssage] The system which generated this result transmitted reference range: 0.0 - 10.0 /100 WBCs. The reference range was not used to interpret this result as normal/abnormal. NRBC x10^3 (test code = [id number]) See_Comment [Automated messa ge] The system which generated this result transmitted reference range: 10*3/?L. The reference range was not used to interpret this result as normal/abnormal. GRAN MAT (NEUT) % (test code = 770-8) 61.3 % IMM GRAN % (test code = [id number]) 0.20 % LYMPH % (test code = 736-9) 32.8 % MONO % (test code = 5905-5) 4.5 % EOS % (test code = 713-8) 0.9 % BASO % (test code = 706-2) 0.3 % GRAN MAT x10^3(ANC) (test code = 7339516599) 6.11 10*3/uL 1.88-7.09 IMM GRAN x10^3 (test code = [id number]) 0.00-0.06 LYMPH x10^3 (test code = 731-0) 3.27 10*3/uL 1.32-3.29 MONO x10^3 (test code = 742-7) 0.45 10*3/uL 0.33-0.92 EOS x10^3 (test code = 711-2) 0.09 10*3/uL 0.03-0.39 BASO x10^3 (test code = 704-7) 0.03 10*3/uL 0.01-0.07 Lab Interpretation (test code = 08513-1) Abnormal [facility] WITH [id number] 05:35:17* Test Item Value Reference Range Interpretation [...] 31.7 g/dL 31.6-35.1 RDW-SD (test code = 47580-7) 38.7 fL 39.0-49.9 L RDW-CV (test code = 788-0) 13.0 % 12.0-15.5 PLT (test code = 777-3) 442 See_Comment H [Automated messa ge] The system which generated this result transmitted reference range: 166 - 358 10*3/?L. The reference range was not used to interpret this result as normal/abnormal. MPV (test code = 02628-9) 10.9 fL 9.5-12.9 NRBC/100 WBC (test code = [id number]) 0.0 See_Comment [Automated [employer] ssage] The system which generated this result transmitted reference range: 0.0 - 10.0 /100 WBCs. The reference range was not used to interpret this result as normal/abnormal. NRBC x10^3 (test code = 2586787290) See_Comment [Automated messa ge] The system which generated this result transmitted reference range: 10*3/?L. The reference range was not used to interpret this result as normal/abnormal. GRAN MAT (NEUT) % (test code = 770-8) 61.3 % IMM GRAN % (test code = 5171580427) 0.20 % LYMPH % (test code = 736-9) 32.8 % MONO % (test code = 5905-5) 4.5 % EOS % (test code = 713-8) 0.9 % BASO % (test code = 706-2) 0.3 % GRAN MAT x10^3(ANC) (test code = 2480705987) 6.11 10*3/uL 1.88-7.09 IMM GRAN x10^3 (test code = 8804835934) 0.00-0.06 LYMPH x10^3 (test code = 731-0) 3.27 10*3/uL 1.32-3.29 MONO x10^3 (test code = 742-7) 0.45 10*3/uL 0.33-0.92 EOS x10^3 (test code = 711-2) 0.09 10*3/uL 0.03-0.39 BASO x10^3 (test code = 704-7) 0.03 10*3/uL 0.01-0.07 Lab Interpretation (test code = 75876-2) Abnormal [facility] [id number] 16:35:00* Test Item Value Reference Range Interpretation Comme nts POCT PREG (test code = 1605) Negative On board controls acceptable with C Line (test code = 3574) Yes POCT PREG LOT # (test code = 3575) POCT PREG TEST DATE ( test code = 3576) [facility] [id number] 16:35:00* Test Item Value Reference Range Interpretation Comme nts POCT PREG (test code = 1605) Negative On board controls acceptable with C Line (test code = 3574) Yes POCT PREG LOT # (test code = 3575) POCT PREG TEST DATE ( test code = 3576) [facility] [id number] 15:41:00* Test Item Value Reference Range Interpretation Comme nts POCT PREG (test code = 1605) Negative On board controls acceptable with C Line (test code = 3574) Yes POCT PREG LOT # (test code = 3575) POCT PREG TEST DATE ( test code = 3576) [facility] [id number] 15:41:00* Test Item Value Reference Range Interpretation Comme nts POCT PREG (test code = 1605) Negative On board controls acceptable with C Line (test code = 3574) Yes POCT PREG LOT # (test code = 3575) POCT PREG TEST DATE ( test code = 3576) [facility] [id number] 15:41:00* Test Item Value Reference Range Interpretation Comme nts POCT PREG (test code = 1605) Negative On board controls acceptable with C Line (test code = 3574) Yes POCT PREG LOT # (test code = 3575) POCT PREG TEST DATE ( test code = 3576) [facility] [id number] 15:41:00* Test Item Value Reference Range Interpretation Comme nts POCT PREG (test code = 1605) Negative On board controls acceptable with C Line (test code = 3574) Yes POCT PREG LOT # (test code = 3575) POCT PREG TEST DATE ( test code = 3576) [facility] [id number] 15:41:00* Test Item Value Reference Range Interpretation Comme nts POCT PREG (test code = 1605) Negative On board controls acceptable with C Line (test code = 3574) Yes POCT PREG LOT # (test code = 3575) POCT PREG TEST DATE ( test code = 3576) [facility]10 16:42:23 ALCOHOL<10mg/dL03/03/2022 10:42 AM [facility]<10 [id number] Toxic>100 Depression of CUTTER FINISHER>400 Fatalities ReportedUnUT [facility] (NA, K, CL, CO2, GLUCOSE, BUN, CREATININE, CA)2022-03-03 16:23:10* Test Item Value Reference Range Interpretation Comme nts NA (test code = 4790638355) 138 mmol/L 135-145 K (test code = 6236702867) 3.9 mmol/L 3.5-5.0 CL (test code = 1039690072) 106 mmol/L 98-108 CO2 TOTAL (test code = 6246635506) 24 mmol/L 23-31 AGAP (test code = 0990629472) 2-16 BUN (test code = 0203867617) 11 mg/dL 7-23 GLUCOSE (test code = 1744383991) 95 mg/dL 70-110 CREATININE (test code = 1382193576) 0.62 mg/dL 0.50-1.04 CALCIUM (test code = 4493073173) 9.4 mg/dL 8.6-10.6 eGFR (test code = 3877710733) mL/min/1.73m2 VASHTI (test code = VASHTI) Association [...] or urine or abnormalities in imaging tests). [facility] WITH [id number] 16:19:13* Test Item Value Reference Range Interpretation Comme nts WBC (test code = 6690-2) See_Comment [Automated Stem CentRx] The system which generated this result transmitted [...] 32.8 g/dL 31.6-35.1 RDW-SD (test code = 85212-7) 38.5 fL 39.0-49.9 L RDW-CV (test code = 788-0) 12.9 % 12.0-15.5 PLT (test code = 777-3) See_Comment [Automated messa ge] The system which generated this result transmitted reference range: 166 - 358 10*3/?L. The reference range was not used to interpret this result as normal/abnormal. MPV (test code = 42713-5) 10.2 fL 9.5-12.9 NRBC/100 WBC (test code = 7966176619) See_Comment [Automated [employer] ssage] The system which generated this result transmitted reference range: 0.0 - 10.0 /100 WBCs. The reference range was not used to interpret this result as normal/abnormal. NRBC x10^3 (test code = 7829275935) See_Comment [Automated messa ge] The system which generated this result transmitted reference range: 10*3/?L. The reference range was not used to interpret this result as normal/abnormal. GRAN MAT (NEUT) % (test code = 770-8) 54.2 % IMM GRAN % (test code = 0463563940) 0.30 % LYMPH % (test code = 736-9) 39.1 % MONO % (test code = 5905-5) 5.1 % EOS % (test code = 713-8) 1.2 % BASO % (test code = 706-2) 0.1 % GRAN MAT x10^3(ANC) (test code = 5190804281) 3.94 10*3/uL 1.88-7.09 IMM GRAN x10^3 (test code = 8067067639) 0.00-0.06 LYMPH x10^3 (test code = 731-0) 2.84 10*3/uL 1.32-3.29 MONO x10^3 (test code = 742-7) 0.37 10*3/uL 0.33-0.92 EOS x10^3 (test code = 711-2) 0.09 10*3/uL 0.03-0.39 BASO x10^3 (test code = 704-7) 0.01-0.07 Lab Interpretation (test code = 51886-3) Abnormal [facility] [id number] 20:48:00* Test Item Value Reference Range Interpretation Comme nts POCT PREG (test code = 1605) Negative On board controls acceptable with C Line (test code = 3574) Yes POCT PREG LOT # (test code = 3575) POCT PREG TEST DATE ( test code = 3576) [facility] URINALYSIS W SPECIFIC [id number] 22:32:00* Test Item Value Reference Range Interpretation [...] development and interpretation of all internal controls [facility] W SPECIFIC [id number] 22:32:00* Test Item Value Reference Range Interpretation [...] development and interpretation of all internal controls [facility] [id number] 15:36:00* Test Item Value Reference Range Interpretation Comme nts POCT PREG (test code = 1605) Negative On board controls acceptable with C Line (test code = 3574) Yes POCT PREG LOT # (test code = 3575) POCT PREG TEST DATE ( test code = 3576) [facility] Notes Date/Time Note Provider Source 2024-04-11 01:25:30 [...] with steady gait, in no apparent distress. CAL REPRESENTATIVE Jessika Rivera RN [facility] 2024-04-10 22:36:35 Pt arrived ambulatory without assist. Pt c/o headache that started this morning. Tylenol 500mg this AM, no meds since CAL REPRESENTATIVE Melvina Regalado RN [facility] 2024-02-24 14:36:46 Chief Complaint Patient presents with Well Woman Exam Molly Arias LVN [facility] 2022-12-05 10:12:02 Formatting of this n ote might be different from the original. Called to speak with [facility] in [place]. They state they did not ever get the prescription. Contacted the patient and she also has not received the prescription. She is requesting they be resent to [facility] in [place]. Re-ordered original prescription and sent to [facility] per patient request. [facility] 2022-12-04 18:01:37 Formatting of this n ote might be different from the original. Thao Lang is a 27 [facility] are wanting the prescriptions transferred. Please advise azelastine 137 mcg (0.1 %) nasal spray brompheniramine-pseudoephe drine-DM (BROMFED DM) 2-30-10 mg/5 mL syrup fluticasone propionate 50 mcg/actuation nasal spray methylPREDNISolone (MEDROL, KRISTA,) 4 mg tablets [facility] [place], [place] - [address] [place] [address] [address] Nate Mcleod [facility]"
[2024-07-01] MEDS ORDERED: ONDANSETRON 4 MG/2 ML VIAL ONE (17:54)
[2024-07-01] MEDS ORDERED: NA CHLORIDE 0.9% 1,000 ML ONE (17:54)
[2024-07-01 17:56] LABS: Specific Gravity 1.018 (1.005-1.030)
[2024-07-01 17:57] LABS: Specific Gravity 1.018 (1.005-1.030); Urine Bacteria <20 /HPF (<20); Urine Bilirubin NEGATIVE (Negative); Urine Blood 1+ (Negative); Urine Clarity Extremely Turbid (Clear); Urine Color Light-Yellow (Yellow); Urine Crystals Unidentified Few /HPF (None Seen); Urine Culture Reflex Order REFLEXED; Urine Glucose NEGATIVE (Negative); Urine Ketones NEGATIVE (Negative); Urine Microscopic Reflex YN ORDER UMIC; Urine Nitrite NEGATIVE (Negative); Urine Protein NEGATIVE (Negative); Urine Urobilinogen Normal (Normal)
[2024-07-01 18:03] LABS: Absolute Basophils 0.1 K/uL (0-0.5); Absolute Eosinophils 0.1 K/uL (0-0.5); Absolute Lymphocytes (CBC) 3.5 K/uL (0.7-4.9); Absolute Monocytes 0.4 K/uL (0.1-1.3); Absolute Neutrophil 5.3 K/uL (1.8-8.0); Basophils % 0.6 % (0-1.3); Eosinophils % 0.9 % (0-4.4); Hematocrit 34.4 % (36.0-45.0); Hemoglobin 11.4 g/dL (12.0-15.0); Lymphocytes % 37.7 % (15.3-44.8); MCHC 33.1 g/dL (32.0-36.0); MCV 75.4 fL (80-100); MPV 7.9 fL (7.6-11.3); Monocytes % 4.4 % (3.3-12.3); Neutrophils % 56.4 % (41.7-73.7); Platelets 416 thou/uL (152-406); RBC Red Blood Cell Count 4.56 M/uL (3.86-4.86); Red Cell Distribution Width 14.8 % (12.1-15.2)
[2024-07-01] MEDS ORDERED: FAMOTIDINE 20 MG/2 ML VIAL IV ONE (18:04)
[2024-07-01 18:05] LABS: Anion Gap 9.6 mEq/L (5.0-15.0); Potassium 3.6 mEq/L (3.5-5.1)
--- NOTE | 2024-07-01 19:23 | RAD REPORT ---
EXAMINATION: ONE VIEW CHEST XR CLINICAL INDICATION: Female, 29 years old.,DYSPNEA TECHNIQUE: Frontal chest projection is submitted. Examination is limited by patient positioning and t echnique. COMPARISON: 07/12/2023 FINDINGS: Under penetration somewhat limits evaluation. The lungs are well inflated and clear. No pneumothorax or sizable effusion. The heart is normal in size. Mediastinal contours are unremarkable. IMPRESSION: No acute intrathoracic abnormalities.
--- NOTE | 2024-07-01 19:26 | ER ---
Nurse's Notes [facility] Name: Thao Lang Age: 29 yrs Sex: Female : 1995 Arrival Date: 07/01/2024 Time: 17:04 Bed DX3 Private MD: Diagnosis: Gastro-esophageal reflux disease without esophagitis Presentation: 07/01 17:26 Chief complaint: Patient states: nausea, acid reflux, unable to sleep. Coronavirus iw screen: At this time, the client does not indicate any symptoms associated with coronavirus-19. Ebola Screen: No symptoms or risks identified at this time. 17:26 Method Of Arrival: Ambulatory iw 17:27 Initial Sepsis Screen: Does the patient meet any 2 criteria? No. Patient's initial iw sepsis screen is negative. Does the patient have a suspected source of infection? No. Patient's initial sepsis screen is negative. Risk Assessment: Do you want to hurt yourself or someone else? Patient reports no desire to harm self or others. 17:27 Acuity: IZABELLA 3 iw Historical: - Allergies: 19:04 No Known Allergies; iw - PMHx: 17:27 Bipolar disorder; Asthma; ectopic ; Schizophrenia; iw - PSHx: 17:27 section; D\T\C; iw - Immunization history:: Adult Immunizations not up to date. - Infectious Disease History:: Denies. Screenin:04 [facility] ED Fall Risk Assessment (Adult) History of falling in the last 3 months, iw including since admission No falls in past 3 months (0 pts) Confusion or Disorientation No (0 pts) Intoxicated or Sedated No (0 pts) Impaired Gait No (0 pts) Mobility Assist Device Used No (0 pt) Altered Elimination No (0 pt) Score/Fall Risk Level 0 - 2 = Low Risk Oriented to surroundings, Maintained a safe environment. Abuse screen: Denies threats or abuse. Nutritional screening: No deficits noted. Tuberculosis screening: No symptoms or risk factors identified. Assessment: 17:30 General: Appears in no apparent distress. Behavior is anxious. Pain: Complains of pain iw in abdomen. Neuro: Level of Consciousness is awake, alert, obeys commands, Oriented to person, place, time, situation, Moves all extremities. Full function. Cardiovascular: Patient's skin is warm and dry. Respiratory: Respiratory effort is even, unlabored, Respiratory pattern is regular, symmetrical. Musculoskeletal: Range of motion: intact in all extremities. 19:04 Reassessment: Patient appears in no apparent distress at this time. Patient and/or iw family updated on plan of care and expected duration. Pain level reassessed. Patient is alert, oriented x 3, equal unlabored respirations, skin warm/dry/pink. 19:31 Reassessment: Patient appears in no apparent distress at this time. Patient and/or vc1 family updated on plan of care and expected duration. Pain level reassessed. Patient is alert, oriented x 3, equal unlabored respirations, skin warm/dry/pink. Patient states feeling better. Patient states symptoms have improved. Vital Signs: 17:26 BP 128 / 73; Pulse 97; Resp 16; Temp 98.1; Pulse Ox 98% on R/A; iw 19:31 BP 126 / 72; Pulse 90; Resp 16; Pulse Ox 99% ; vc1 ED Course: 17:08 Patient arrived in ED. al6 17:08 [facility]C [facility] kb 17:08 Earl Geiger DO is Attending Physician. kb 17:27 Triage completed. iw 17:55 Sapphire Slaughter, RN is Primary Nurse. iw 17:56 Patient has correct armband on for positive identification. iw 17:56 Initial lab(s) drawn, by me, sent to lab. Inserted saline lock: 22 gauge in left hand, iw using aseptic technique. Blood collected. Flushed with 10 mL NS. 18:09 Chest Single View XRAY In Process Unspecified. EDMS 19:31 No provider procedures requiring assistance completed. IV discontinued, intact, vc1 bleeding controlled, No redness/swelling at site. Pressure dressing applied. Administered Medications: 18:08 Drug: Ondansetron IVP 4 mg IVP once; over 2 minutes Route: IVP; Site: left hand; iw 19:32 Follow up: Response: No adverse reaction; Marked relief of symptoms vc1 18:17 Drug: Famotidine IVP 20 mg IVP once; dilute with 10 mL 0.9% NaCl; give over 2 minutes iw Route: IVP; Site: left hand; 19:32 Follow up: Response: No adverse reaction; Marked relief of symptoms vc1 18:17 Drug: NS 0.9% IV 1000 ml IV at 1000 ml once; to be given as a bolus over 60 minutes iw Route: IV; Rate: 1000 ml; Site: left hand; 19:32 Follow up: IV Status: Completed infusion; IV Intake: 1000ml vc1 Medication: 17:56 VIS not applicable for this client. iw Intake: 19:32 IV: 1000ml; Total: 1000ml. vc1 Outcome: 19:25 Discharge ordered by MD. garcia 19:31 Discharged to home ambulatory, with significant other, vc1 19:31 Condition: stable 19:31 Discharge instructions given to patient, Instructed on discharge instructions, follow up and referral plans. medication usage, Demonstrated understanding of instructions, follow-up care, medications, Prescriptions given X 1, :32 Patient left the ED. vc1 Signatures: Dispatcher [employer] EDMS Amanda Zhao, PETER SHARMA-Sapphire Rizzo RN RN iw Sejal Garcia RN RN vc1 Olivia Ely al6
--- NOTE | 2024-07-01 19:26 | EDPHYS ---
Physician Documentation [facility] Name: Thao Lang Age: 29 yrs Sex: Female : 1995 Arrival Date: 07/01/2024 Time: 17:04 Bed DX3 Private MD: ED Physician Earl Geiger HPI: 07/01 17:15 This 29 yrs old Female presents to ER via Unassigned with complaints of kb Allergic Reaction. 17:15 Pt is a 29 year old female who presents for palpitations, shortness of breath, nausea kb that started yesterday. STates she thinks she is having an allergic reaction to a shot she was given. Reports her psych medications aren't allowing her to get good sleep so it is affecting the rest of her body and also her IUD feels too tight. States she would also like a test because she thinks her Hcg is high from previous . States she feels like she is dehydrated as well because she was at [facility] and they didn't give her water, discharged on Saturday. . Historical: - Allergies: 19:04 No Known Allergies; iw - PMHx: 17:27 Bipolar disorder; Asthma; ectopic ; Schizophrenia; iw - PSHx: 17:27 section; D\T\C; iw - Immunization history:: Adult Immunizations not up to date. - Infectious Disease History:: Denies. ROS: 17:18 Constitutional: As per HPI kb Exam: 17:18 Constitutional: This is a well developed, well nourished patient who is awake, alert, kb and in no acute distress. Head/Face: Normocephalic, atraumatic. ENT: Moist Mucous membranes Cardiovascular: Regular rate Respiratory: Respirations even and unlabored. No increased work of breathing. Talking in full sentences Abdomen/GI: Soft, non-tender. No distention Skin: Warm, dry with normal turgor. Normal color. MS/ Extremity: Pulses equal, no cyanosis. Neurovascular intact. Full, normal range of motion. Neuro: Awake and alert, GCS 15, oriented to person, place, time, and situation. 17:23 ECG was reviewed by the Attending Physician. kb Vital Signs: 17:26 BP 128 / 73; Pulse 97; Resp 16; Temp 98.1; Pulse Ox 98% on R/A; iw 19:31 BP 126 / 72; Pulse 90; Resp 16; Pulse Ox 99% ; vc1 MDM: 17:08 Medical Screening Exam initiated kb 17:23 Data reviewed: vital signs, nurses notes. Historians other than the Patient: Parent: radha father, states he has appts with TENSION MACHINE OPERATOR and psych set up for this month. 07/01 17:19 Order name: CBC with Diff; Complete Time: 18:07 kb 07/01 17:19 Order name: BMP; Complete Time: 18:07 kb 07/01 17:19 Order name: Test, Urine; Complete Time: 17:57 kb 07/01 17:19 Order name: Urinalysis w/ reflexes; Complete Time: 18:36 kb 07/01 18:11 Order name: Urine Culture EDMS 07/01 17:19 Order name: Chest Single View XRAY; Complete Time: 19:24 kb 07/01 17:19 Order name: EKG; Complete Time: 17:20 kb 07/01 17:19 Order name: IV Start; Complete Time: 17:56 kb 07/01 17:19 Order name: EKG - Nurse/Tech; Complete Time: 17:26 kb EC:23 Rate is 93 beats/min. Rhythm is regular. QRS [place] is Normal. IN interval is normal at kb 136 msec. QRS interval is normal at 88 msec. QT interval is normal at 442 msec. Administered Medications: 18:08 Drug: Ondansetron IVP 4 mg IVP once; over 2 minutes Route: IVP; Site: left hand; iw 19:32 Follow up: Response: No adverse reaction; Marked relief of symptoms vc1 18:17 Drug: Famotidine IVP 20 mg IVP once; dilute with 10 mL 0.9% NaCl; give over 2 minutes iw Route: IVP; Site: left hand; 19:32 Follow up: Response: No adverse reaction; Marked relief of symptoms vc1 18:17 Drug: NS 0.9% IV 1000 ml IV at 1000 ml once; to be given as a bolus over 60 minutes iw Route: IV; Rate: 1000 ml; Site: left hand; 19:32 Follow up: IV Status: Completed infusion; IV Intake: 1000ml vc1 Disposition: 21:49 I was immediately available on-site in the Emergency Department for consultation in the [facility] care of the patient. Disposition Summary: 07/01/24 19:25 Discharge Ordered Notes: Location: Home kb Condition: Stable kb Diagnosis - Gastro-esophageal reflux disease without esophagitis kb Followup: kb - With: Emergency Department - When: As needed - Reason: Worsening of condition Followup: kb - With: Private Physician - When: 2 - 3 days - Reason: Recheck today's complaints, Continuance of care, Re-evaluation by your physician Discharge Instructions: - Discharge Summary Sheet kb - Gastroesophageal Reflux Disease, Adult, [id number] kb Forms: - Medication Reconciliation Form kb - Antibiotic Education kb - Prescription Opioid Use kb - Patient Portal Instructions kb - Leadership Thank You Letter kb Prescriptions: - Protonix 40 mg Oral Tablet - take 1 tablet ORAL route once daily; 30 tablet; Refills: 0, Product Selection kb Permitted Signatures: Dispatcher [employer] EDAmanda Rushing, EDITH-C MODEL BUILDER DISPLAY-Sapphire Rizzo RN RN iw Earl Geiger DO DO ms3 Sejal Garcia RN vc1 Corrections: (The following items were deleted from the chart) 17:22 17:15 Pt is a 29 year old female who presents for palpitations, shortness of breath, kb nausea that started yesterday. STates she thinks she is having an allergic reaction to a shot she was given. Reports her psych medications aren't allowing her to get good sleep so it is affecting the rest of her body and also her IUD feels too tight. . kb
--- NOTE | 2024-07-02 11:47 | EKG ---
Test Date: 2024-07-01 Test Time: 17:22:14 Pneumatic System Conveyor Operator: COOKIE MEASUREMENT RESULTS: Intervals: Rate: 93 OH: 136 QRSD: 88 QT: 356 QTc: 442 Stanton: P: 93 OH: 136 QRS: 53 T: 47 INTERPRETIVE STATEMENTS: Normal sinus rhythm Normal ECG Compared to ECG 06/16/2024 12:25:44 No significant changes Electronically Signed On 07-02-24 11:46:07 CDT by Milad Guzman
== END 2024-07-01 19:32 | disposition home or self-care (01) ==
LOC: ER 17:04
DX: K21.9 Gastro-esophageal reflux disease without esophagitis (principal); J45.909 Unspecified asthma, uncomplicated
CPT/HCPCS: 96361; 93005; 87088; 85025; 81001; 87086; 80048; 36415; 81025; 71045; 96375; 96374; 99284; J2405; J7030

== ENCOUNTER 2024-10-29 03:50 | Emergency (ER) | payer OTHER ==
--- OUTSIDE RECORDS SUMMARY | 2024-10-29 04:04 | XMS REPORT | Continuity of Care Document ---
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 Assembler Name Role Phone ESTEVAN ADAMS Primary Care Physician Unav ailable LAB90 Attending Clinician Unavailable SUSY ANDRE Attending Clinician UnaJEB Peng Attending Clinician Unavailable LAB45 Attending Clinician Unavailable OZZIE RIVERA Attending Clinician Unavailab BRADEN Torres Attending Clinician Unavailable FRANKIE DIETZ Attending Clinician Unavailable MD RIKI Attending Clinician Unavailab ESTEVAN Reyes Attending Clinician Unavail able PRESLEY MUNOZ Attending Clinician Unavailable TISH LOCKWOOD Attending Clinician Unavailable YAN POPE Attending Clinician Unavailable CARMINE MONROE Attending Clinician Unavailable CARMINE MONROE Attending Clinician Unavailable Carmine Marcial Attending Clinician [phone] MARILOU JARAMILLO Attending Clinician Unavailable OMKAR HOU Attending Clinician OMKAR Bender Attending Clinician JULISSA Marti Attending Clinician Unavailable JENNIFER PURI Attending Clinician Unavailking Adams [facility] Estev[facility] Attending Clinician + Burton MARC, Jessika Attending Clinician [phone] JESSIKA MANRIQUE Attending Clinician Unavailable Unknown, Attending Attending Clinician Unavailab jaime GARCIAM, Jennifer Malik Attending Clinician [phone] Doctor Unassigned, Bazine Attending Clinician U SIRIA Dugan Attending Clinician Unavailab TIANA Argueta Attending Clinician Unavailable Tiana Antonio MD Attending Clinician [phone] [facility]ending [facility]ician Unava yessi Anderson MUSKRAT TRAPPER, Siria Stokes Attending Clinician [phone] Maisha West RN Attending Clinician Unavailable EASTON RIOJAS Attending Clinician Unavailable Nurse, Ang Rmchp Exp Cprit Obgyn Attending Clini luis felipe Unavailable JODEE ALMAZAN Attending Clinician Unavailable Jodee Almazan MD Attending Clinician [phone] Zbigniew Fernandez MD Attending Clinician + [phone] Glen Mcgraw MD Attending Clinician [phone] Leonel Mason MD Attending Clinician [phone] Ultrasound, Ang-Mfm Attending Clinician UnavailKatelyn Mullen MD Attending Clinician [phone] KATELYN CRUZ Attending Clinician Unavailable KATELYN CRUZ Attending Clinician Unavailable Lab, Ang-Rmchp Attending Clinician Unavailable Yelena MAKSIM, Aaron Strong Attending Clinician + AARON ALICEA Attending Clinician Unavail able Provider, Ang-[facility] Temp Attending Clinician Dalila Silvana Whitehead MD Attending Clinician [phone] SILVANA VENEGAS Attending Clinician Unavailable SILVANA VENEGAS Attending Clinician Unavailable Sukhjinder SHARMA, Bo Hunt Attending Clinician [phone] BO RIVERA Attending Clinician UnavailAracely RAMÍREZP, Nguyễn Attending Clinician [phone] AMAYA PEÑA Attending Clinician Unavailable Amaya Agustin Attending Clinician [phone] Palmira Phillips Attending Clinician Unavailyahaira Escoto MD, Yair Borjas Attending Clinician Sherman MARC, Gianni Chou Attending Clinician Robbie Wolfe MD, Amaral Attending Clinician + Leny MARC, Julissa Arguello Attending Clinician Reji Cruz DO Attending Clinician Seth MUSKRAT TRAPPER, Emma Attending Clinician [phone] Tre MARC, Zoe Stinson Attending Clinician [phone] Provider, [facility] Attending Clinician Un available Bony SHARMA, Saadia Attending Clinician [phone] SAADIA LOVETT Attending Clinician Unavailable Omar MUSKRAT TRAPPER, Delano Attending Clinician [phone] DELANO NELSON Attending Clinician UnavailYOVANY Barnhart Attending Clinician Unavailable JAIME CLEMENT Attending Clinician Unavailable JODEE ALMAZAN Admitting Clinician Unavailable Tha MARC, Jodee Suarez Admitting Clinician [phone] Julissa Michele MD Admitting Clinician [phone] Payers Payer Name Policy Type Policy Number Effective Date Expirati on Date Source [employer] [place] [employer] [id number] 2016 00:00:00 [facility] AMANDA GILMORE COPAY FOCUS 9 [id number] 2024 00:00:00 [employer] W/ YING StrongON [id number] 2024 00:00:00 [facility] CHAVO STAR [id number] 2024 00:00:00 2025 00:00:00 [employer] EXCHANGE OON Exchange [id number] 2024 00:00:00 [place] CHILDREN STAR [id number] 2022 00:00:00 MEDICAID PENDING PENDING 2020 00:00:00 Problems Condition Name Condition Details Condition Category Status Onset Date Resolution Date Last Treatment Date Treating Clinician Comments Source Presence of intrauteri ne contracept yamila device Presence of intrauteri ne contracept yamila device Disease Active 10-04 00:00: 00 [facility] History of abnormal cervical Pap smear History of abnormal cervical Pap smear Disease Active 10-04 00:00: 00 Overview: Formattin g of this note might be different from the original. 09/2020 LGSIL [facility] Upper respirator y symptom Upper respirator y symptom Disease Active 1-18 00:00: 00 [facility] Anemia of mother in , antepartum Anemia of mother in , antepartum Disease Active 2020-03 2-16 00:00: 00 [facility] Morbid obesity Morbid obesity Disease Active 1-06 00:00: 00 [facility] Folliculit is Folliculit is Disease Resolve d 4-12 00:00: 00 2022-10-04 00:00:00 2022-10-04 08:51:23 [facility] Flu vaccine need Flu vaccine need Disease Resolve d 3-30 00:00: 00 2022-10-04 00:00:00 2022-10-04 08:51:25 [facility] Vaginal lesion Vaginal lesion Disease Resolve d 3-30 00:00: 00 2022-10-04 00:00:00 2022-10-04 08:51:39 [facility] Elevated blood-pres sure reading, without diagnosis of hypertensi on Elevated blood-pres sure reading, without diagnosis of hypertensi on Disease Resolve d 2-15 00:00: 00 2022-10-04 00:00:00 2022-10-04 08:51:26 [facility] COVID COVID Disease Resolve d 2-01 00:00: 00 2022-10-04 00:00:00 2022-10-04 08:51:27 [facility] Upper respirator y symptom Upper respirator y symptom Disease Resolve d 1-18 00:00: 00 2022-10-04 00:00:00 2022-10-04 08:51:28 [facility] Abnormal glandular Papanicola ou smear of cervix Abnormal glandular Papanicola ou smear of cervix Disease Resolve d 8-04 00:00: 00 2022-10-04 00:00:00 2022-10-04 08:51:32 Overview: Formattin g of this note might be different from the original. LGSIL on 2020 pap smear, needs repeat in 12 months [facility] BMI 45.0-49.9, adult BMI 45.0-49.9, adult Disease Resolve d 7-19 00:00: 00 2022-10-04 00:00:00 2022-10-04 08:51:37 [facility] Screening examinatio n for STD (sexually transmitte d disease) Screening examinatio n for STD (sexually transmitte d disease) Disease Resolve d 2-16 00:00: 00 2022-10-04 00:00:00 2022-10-04 08:51:30 [facility] Research study patient Research study patient Disease Resolve d 2-16 00:00: 00 2022-04-19 00:00:00 2022-04-19 10:06:25 Overview: Formattin g of this note might be different from the original. PACT (fellow) [facility] GBS (group B Streptococ cus carrier), +RV culture, currently GBS (group B Streptococ cus carrier), +RV culture, currently Disease Resolve d 1-27 00:00: 00 2022-04-19 00:00:00 2022-04-19 10:06:35 Overview: Formattin g of this note might be different from the original. Address in labor and delivery. [facility] Anemia of mother in , antepartum Anemia of mother in , antepartum Disease Resolve d 2020-03 2-16 00:00: 00 2022-04-19 00:00:00 2022-04-19 10:06:42 [facility] Abnormal quad screen Abnormal quad screen Disease Resolve d 2020-03 2-16 00:00: 00 2022-04-19 00:00:00 2022-04-19 10:06:43 [facility] Supervisio n of high risk in third trimester Supervisio n of high risk in third trimester Disease Resolve d 2020-0 7-19 00:00: 00 2022-04-19 00:00:00 2022-04-19 10:06:21 [facility] SAB (spontaneo us ) SAB (spontaneo us ) Disease Resolve d 2020-0 7-19 00:00: 00 2022-04-19 00:00:00 2022-04-19 10:06:23 [facility] in first trimester with history of ectopic in first trimester with history of ectopic Disease Resolve d 2020-0 7-19 00:00: 00 2022-04-19 00:00:00 2022-04-19 10:06:27 [facility] Primigravi da in third trimester Primigravi da in third trimester Disease Resolve d 2020-0 7-19 00:00: 00 2022-04-19 00:00:00 2022-04-19 10:06:29 [facility] History of ectopic History of ectopic Disease Resolve d 2020-0 4-02 00:00: 00 2022-04-19 00:00:00 2022-04-19 10:06:32 [facility] 39 weeks gestation of 39 weeks gestation of Disease Resolve d 2021-0 2-15 00:00: 00 2021-05-17 00:00:00 2021-05-17 08:21:48 [facility] Ectopic without intrauteri ne Ectopic without intrauteri ne Disease Resolve d 2020-0 3-17 00:00: 00 2020-06-24 00:00:00 2020-06-24 11:40:20 [facility] Nexplanon removal Nexplanon removal Disease Resolve d 0 2-16 00:00: 00 2020-06-08 00:00:00 2021-10-08 00:44:25 [facility] Rubella immune Rubella immune Disease Resolve d 2013-0 1-24 00:00: 00 2016-05-10 00:00:00 2016-05-10 13:46:23 [facility] Insertion of implantabl e subdermal contracept yamila Insertion of implantabl e subdermal contracept yamila Disease Resolve d 04-17 00:00: 00 2016-05-10 00:00:00 2021-10-08 00:28:34 [facility] Anemia Anemia Disease Resolve d 04-01 00:00: 00 2016-05-10 00:00:00 2021-10-08 00:28:17 [facility] Encounter for routine gynecologi curtis examinatio n Encounter for routine gynecologi curtis examinatio n Disease Resolve d 03-30 00:00: 00 2016-05-10 00:00:00 2021-10-08 00:28:16 [facility] Allergies, Adverse Reactions, Alerts Allergy Name Allergy Type Status Severity Reaction(s) Onset Date Inactive Date Treating Clinician Comments Source NO KNOWN ALLERGIE S Drug Class Active [facility] Social History Social Habit Start Date Stop Date Quantity Comments Source History SDOH Alcohol Frequency [facility] History SDOH Alcohol Std Drinks [facility] History SDOH Alcohol Binge [facility] Gender identity [facility] ASSERTION Not [facility] - External Sexual orientation K castillo Queen - External History of Social function 2024-09-11 00:00:00 2024-09-11 00:00:00 [facility] - External Alcoholic beverage intake 2024-04-11 00:00:00 2024-04-11 00:00:00 Current drinker of alcohol (finding) [facility] Alcohol Comment 2024-02-24 00:00:00 2024-02-24 00:00:00 occasionally [facility] - External Tobacco use and exposure 2024-02-24 00:00:00 2024-02-24 00:00:00 Smokeless tobacco non-user [facility] Alcohol intake 2022-12-02 00:00:00 2022-12-02 00:00:00 Current drinker of alcohol (finding) [facility] Exposure to SARS-CoV-2 (event) 2022-04-20 00:00:00 2022-04-30 10:31:00 Not sure [facility] Sex 2021-07-03 01:43:03 2021-07-03 01:43:03 Female (finding) [facility] Sex assigned at 1995 00:00:00 1995 00:00:00 [facility] Smoking Status Start Date Stop Date Source Never smoked tobacco [facility] Medications Ordered Medication Name Filled Medication Name Start Date Stop Date Current Medication? Ordering Clinician Indication Dosage Frequency Signature (SIG) Comments Components Source Fluconazole 150 MG oral Tablet 09-11 10:39: 07 Yes [id number] 150mg Take 1 tablet (150 mg total) by mouth once for 1 dose. Ying arguello Amoxicillin -Pot Clavulanate 500-125 MG oral Tablet 09-11 00:00: 00 Yes [id number] 1{tbl} Q.5D Take 1 tablet by mouth in the morning and 1 tablet before bedtime. Ying arguello Etonogestre l (NEXPLANON) 68 MG SC IMPL - Physician Administere d ([id number]) 08-20 16:09: 59 No [id number] 1{each} 1 each, Physician Administer ed, ONCE, 1 dose, On Gwen 08/20/24 at 1615 Ying arguello Amoxicillin (AMOXIL) 500 MG oral Capsule 07-27 00:00: 00 08-20 00:00 :00 No TAKE ONE (1) CAPSULE(S) BY MOUTH EVERY EIGHT HOURS FOR 5 DAYS. [facility] arguello Aripiprazol e 10 MG oral Tablet 30 16:05: 24 Yes 1{tbl} Take 1 tablet by mouth at bedtime. [facility]ing arguello Rybelsus 3 MG oral Tablet -22 00:00: 00 Yes Ying arguello Trazodone HCl 50 MG oral Tablet 4-14 00:00: 00 Yes 50mg QD Take 1 tablet (50 mg total) by mouth nightly as needed. Ying arguello Ergocalcife rol 1.25 MG (15613 UT) oral Capsule -14 00:00: 00 07-07 04:59 :00 No [id number] Take 1 capsule (50,000 units total) by mouth every 14 days. Ying arguello Pantoprazol e Sodium 40 MG oral Tablet Delayed Response 4-09 00:00: 00 Yes 40mg QD Take 1 tablet (40 mg total) by mouth daily. [facility]ing arguello hydrOXYzine Pamoate 50 MG oral Capsule -05 00:00: 00 Yes take one (1) capsule(s) by mouth three times a day as needed for anxiety. Ying arguello NaCl 0.9% (NS) IV infusion 1,000 mL 04-11 06:45: 00 04-11 06:05 :01 No 1000mL at 999 mL/hr, Intravenou s, ONCE, 1 dose, On Sat04/11/24 at 0045, Routine [facility] butalbital- acetaminoph en-caff (ESGIC) 50-325-40 mg tablet 1 tablet 04-11 05:45: 00 04-11 06:06 :00 No 1{tbl} 1 tablet, Oral, ONCE, 1 dose, On Sat04/10/24 at 2345, ISAAK [facility] ketorolac (TORADOL) injection 30 mg 04-11 05:37: 00 04-11 06:06 :00 No 30mg 30 mg, Slow IV Push, ONCE, 1 dose, On Sat04/10/24 at 2345, ISAAK [facility] Metronidazo le (Flagyl) 500 MG oral Tablet 2023-03 2-05 00:00: 00 Yes [id number] 500mg Q.5D Take 1 tablet (500 mg total) by mouth 2 times daily. Ying arguello azelastine 137 mcg (0.1 %) nasal spray 9-13 00:00: 00 Yes [id number] 1{spray } Use 1 [place] in each nostril in the morning and 1 [place] in the evening. Use in each nostril as directed [facility] bromphenira mine-pseudo ephedrine-D M (BROMFED DM) 2-30-10 mg/5 mL syrup 12-05 00:00: 00 Yes [id number] 10mL Take 10 mL by mouth 4 (four) times daily as needed for Congestion /Allergies , Cough or Cold symptoms. [facility] fluticasone propionate 50 mcg/actuati on nasal spray 12-05 00:00: 00 Yes [id number] 1{spray } Use 1 [place] in each nostril in the morning. [facility] methylPREDN ISolone (MEDROL, KRISTA,) 4 mg tablets 12-05 00:00: 00 Yes [id number] Take by mouth SEE-INSTRU CTIONS. follow package directions [facility] bromphenira mine-pseudo ephedrine-D M (BROMFED DM) 2-30-10 mg/5 mL syrup 12-02 00:00: 00 Yes [id number] 10mL Take 10 mL by mouth 4 (four) times daily as needed for Congestion /Allergies , Cough or Cold symptoms. [facility] azelastine 137 mcg (0.1 %) nasal spray 12-02 00:00: 00 Yes [id number] 1{spray } Use 1 [place] in each nostril in the morning and 1 [place] in the evening. Use in each nostril as directed [facility] fluticasone propionate 50 mcg/actuati on nasal spray 12-02 00:00: 00 Yes [id number] 1{spray } Use 1 [place] in each nostril in the morning. [facility] methylPREDN ISolone (MEDROL, KRISTA,) 4 mg tablets 12-02 00:00: 00 Yes [id number] Take by mouth SEE-INSTRU CTIONS. follow package directions [facility] metroNIDAZO LE 500 mg tablet 10-04 00:00: 00 10-05 04:59 :00 No [id number] 2000mg Take 4 tablets by mouth once now for 1 dose. [facility] copper (PARAGARD T 380A) IUD 1 Intra Uterine Device 2-06 17:45: 00 04-30 17:01 :00 No [id number] 1{IUD} Corrie s [facility] amoxicillin -clavulanat e (AUGMENTIN) 875-125 mg per tablet 2021-03 00:00: 00 02-01 05:59 :00 No [id number] 1{tbl} Take 1 tablet by mouth in the morning and 1 tablet in the evening. Do all this for 7 days. [facility] phenazopyri dine 100 mg tablet 2021-03 00:00: 00 01-27 04:59 :00 No [id number] 200mg Take 2 tablets by mouth in the morning and 2 tablets at noon and 2 tablets in the evening. Do all this for 2 days. [facility] levonorgest rel-ethinyl estradiol (SRONYX) 0.1-20 mg-mcg per tablet -14 00:00: 00 10-02 00:00 :00 No [id number] 1{tbl} Take 1 tablet by mouth in the morning. [facility] ondansetron 4 mg disintegrat ing tablet 07-03 00:00: 00 10-02 00:00 :00 No [id number] 4mg Take 1 tablet by mouth every 8 (eight) hours as needed for Nausea and Vomiting (N/V). [facility] norethindro ne 0.35 mg tablet 3-30 00:00: 00 10-02 00:00 :00 No [id number] 1{tbl} Take 1 tablet by mouth daily. [facility] Immunizations Ordered Immunization Name Filled Immunization Name Date Status Comments Source TD, NOS 2023-01-18 00:00:00 Completed [facility] SARS-COV-2 COVID-19 MAURICIO/J&J VACCINE 2023-01-18 00:00:00 Completed [facility] TDAP 2023-01-18 00:00:00 Completed [facility] HPV 2023-01-18 00:00:00 Completed [facility] HPV9 2023-01-18 00:00:00 Completed [facility] DTaP, Unspecified Formulation 2023-01-18 00:00:00 Completed [facility] DPT/HIB 2023-01-18 00:00:00 Completed [facility] HEPATITIS A 2023-01-18 00:00:00 Completed [facility] Hep B, Unspecified Formulation 2023-01-18 00:00:00 Completed [facility] Meningococcal Polysaccharide (groups A, C, Y and W-135) conjugate vaccine (MCV4P) 2023-01-18 00:00:00 Completed [facility] MMR 2023-01-18 00:00:00 Completed [facility] IPV 2023-01-18 00:00:00 Completed [facility] Poliovirus, Live, Oral, Trivalent 2023-01-18 00:00:00 Completed [facility] TD, NOS 2021-07-03 00:00:00 Completed [facility] SARS-COV-2 COVID-19 MAURICIO/J&J VACCINE 2021-07-03 00:00:00 Completed [facility] TDAP 2021-07-03 00:00:00 Completed [facility] HPV 2021-07-03 00:00:00 Completed [facility] HPV9 2021-07-03 00:00:00 Completed [facility] DTaP, Unspecified Formulation 2021-07-03 00:00:00 Completed [facility] DPT/HIB 2021-07-03 00:00:00 Completed [facility] HEPATITIS A 2021-07-03 00:00:00 Completed [facility] Hep B, Unspecified Formulation 2021-07-03 00:00:00 Completed [facility] Meningococcal Polysaccharide (groups A, C, Y and W-135) conjugate vaccine (MCV4P) 2021-07-03 00:00:00 Completed [facility] MMR 2021-07-03 00:00:00 Completed [facility] IPV 2021-07-03 00:00:00 Completed [facility] Poliovirus, Live, Oral, Trivalent 2021-07-03 00:00:00 Completed [facility] TD, NOS 2021-05-29 00:00:00 Completed [facility] SARS-COV-2 COVID-19 MAURICIO/J&J VACCINE 2021-05-29 00:00:00 Completed [facility] TDAP 2021-05-29 00:00:00 Completed [facility] HPV 2021-05-29 00:00:00 Completed [facility] HPV9 2021-05-29 00:00:00 Completed [facility] DTaP, Unspecified Formulation 2021-05-29 00:00:00 Completed [facility] DPT/HIB 2021-05-29 00:00:00 Completed [facility] HEPATITIS A 2021-05-29 00:00:00 Completed [facility] Hep B, Unspecified Formulation 2021-05-29 00:00:00 Completed [facility] Meningococcal Polysaccharide (groups A, C, Y and W-135) conjugate vaccine (MCV4P) 2021-05-29 00:00:00 Completed [facility] MMR 2021-05-29 00:00:00 Completed [facility] IPV 2021-05-29 00:00:00 Completed [facility] Poliovirus, Live, Oral, Trivalent 2021-05-29 00:00:00 Completed [facility] HPV9 2021-05-17 00:00:00 Completed [facility] HPV9 2021-05-17 00:00:00 Completed [facility] HPV9 2021-05-17 00:00:00 Completed [facility] HPV9 2021-05-17 00:00:00 Completed [facility] HPV9 2021-05-17 00:00:00 Completed [facility] HPV9 2021-05-17 00:00:00 Completed [facility] HPV9 2021-05-17 00:00:00 Completed [facility] HPV9 2021-05-17 00:00:00 Completed [facility] HPV9 2021-05-17 00:00:00 Completed [facility] HPV9 2021-05-17 00:00:00 Completed [facility] HPV9 2021-05-17 00:00:00 Completed [facility] HPV9 2021-05-17 00:00:00 Completed [facility] HPV9 2021-05-17 00:00:00 Completed [facility] HPV9 2021-05-17 00:00:00 Completed [facility] HPV9 2021-05-17 00:00:00 Completed [facility] HPV9 2021-05-17 00:00:00 Completed [facility] HPV9 2021-05-17 00:00:00 Completed [facility] HPV9 2021-05-17 00:00:00 Completed [facility] HPV9 2021-05-17 00:00:00 Completed [facility] HPV9 2021-05-17 00:00:00 Completed [facility] HPV9 2021-05-17 00:00:00 Completed [facility] TD, NOS 2021-03-15 00:00:00 Completed [facility] SARS-COV-2 COVID-19 MAURICIO/J&J VACCINE 2021-03-15 00:00:00 Completed [facility] TDAP 2021-03-15 00:00:00 Completed [facility] HPV 2021-03-15 00:00:00 Completed [facility] DTaP, Unspecified Formulation 2021-03-15 00:00:00 Completed [facility] DPT/HIB 2021-03-15 00:00:00 Completed [facility] HEPATITIS A 2021-03-15 00:00:00 Completed [facility] Hep B, Unspecified Formulation 2021-03-15 00:00:00 Completed [facility] Meningococcal Polysaccharide (groups A, C, Y and W-135) conjugate vaccine (MCV4P) 2021-03-15 00:00:00 Completed [facility] MMR 2021-03-15 00:00:00 Completed [facility] IPV 2021-03-15 00:00:00 Completed [facility] Poliovirus, Live, Oral, Trivalent 2021-03-15 00:00:00 Completed [facility] TDAP 2021-02-22 00:00:00 Completed [facility] TDAP 2021-02-22 00:00:00 Completed [facility] TDAP 2021-02-22 00:00:00 Completed [facility] TDAP 2021-02-22 00:00:00 Completed [facility] TDAP 2021-02-22 00:00:00 Completed [facility] TDAP 2021-02-22 00:00:00 Completed [facility] TDAP 2021-02-22 00:00:00 Completed [facility] TDAP 2021-02-22 00:00:00 Completed [facility] TDAP 2021-02-22 00:00:00 Completed [facility] TDAP 2021-02-22 00:00:00 Completed [facility] TDAP 2021-02-22 00:00:00 Completed [facility] TDAP 2021-02-22 00:00:00 Completed [facility] TDAP 2021-02-22 00:00:00 Completed [facility] TDAP 2021-02-22 00:00:00 Completed [facility] TDAP 2021-02-22 00:00:00 Completed [facility] TDAP 2021-02-22 00:00:00 Completed [facility] TDAP 2021-02-22 00:00:00 Completed [facility] TDAP 2021-02-22 00:00:00 Completed [facility] TDAP 2021-02-22 00:00:00 Completed [facility] TDAP 2021-02-22 00:00:00 Completed [facility] TDAP 2021-02-22 00:00:00 Completed [facility] TD, NOS 2020-10-27 00:00:00 Completed [facility] SARS-COV-2 COVID-19 MAURICIO/J&J VACCINE 2020-10-27 00:00:00 Completed [facility] HPV 2020-10-27 00:00:00 Completed [facility] DTaP, Unspecified Formulation 2020-10-27 00:00:00 Completed [facility] DPT/HIB 2020-10-27 00:00:00 Completed [facility] HEPATITIS A 2020-10-27 00:00:00 Completed [facility] Hep B, Unspecified Formulation 2020-10-27 00:00:00 Completed [facility] Meningococcal Polysaccharide (groups A, C, Y and W-135) conjugate vaccine (MCV4P) 2020-10-27 00:00:00 Completed [facility] MMR 2020-10-27 00:00:00 Completed [facility] IPV 2020-10-27 00:00:00 Completed [facility] Poliovirus, Live, Oral, Trivalent 2020-10-27 00:00:00 Completed [facility] [facility] 2020-10-27 00:00:00 Completed [facility] SARS-COV-2 COVID-19 MAURICIO/J&J VACCINE 2020-07-26 00:00:00 Completed [facility] SARS-COV-2 COVID-19 MAURICIO/J&J VACCINE 2020-07-26 00:00:00 Completed [facility] SARS-COV-2 COVID-19 MAURICIO/J&J VACCINE 2020-07-26 00:00:00 Completed [facility] SARS-COV-2 COVID-19 MAURICIO/J&J VACCINE 2020-07-26 00:00:00 Completed [facility] SARS-COV-2 COVID-19 MAURICIO/J&J VACCINE 2020-07-26 00:00:00 Completed [facility] SARS-COV-2 COVID-19 MAURICIO/J&J VACCINE 2020-07-26 00:00:00 Completed [facility] SARS-COV-2 COVID-19 MAURICIO/J&J VACCINE 2020-07-26 00:00:00 Completed [facility] SARS-COV-2 COVID-19 MAURICIO/J&J VACCINE 2020-07-26 00:00:00 Completed [facility] SARS-COV-2 COVID-19 MAURICIO/J&J VACCINE 2020-07-26 00:00:00 Completed [facility] SARS-COV-2 COVID-19 MAURICIO/J&J VACCINE 2020-07-26 00:00:00 Completed [facility] SARS-COV-2 COVID-19 MAURICIO/J&J VACCINE 2020-07-26 00:00:00 Completed [facility] SARS-COV-2 COVID-19 MAURICIO/J&J VACCINE 2020-07-26 00:00:00 Completed [facility] SARS-COV-2 COVID-19 MAURICIO/J&J VACCINE 2020-07-26 00:00:00 Completed [facility] SARS-COV-2 COVID-19 MAURICIO/J&J VACCINE 2020-07-26 00:00:00 Completed [facility] SARS-COV-2 COVID-19 MAURICIO/J&J VACCINE 2020-07-26 00:00:00 Completed [facility] SARS-COV-2 COVID-19 MAURICIO/J&J VACCINE 2020-07-26 00:00:00 Completed [facility] SARS-COV-2 COVID-19 MAURICIO/J&J VACCINE 2020-07-26 00:00:00 Completed [facility] SARS-COV-2 COVID-19 MAURICIO/J&J VACCINE 2020-07-26 00:00:00 Completed [facility] SARS-COV-2 COVID-19 MAURICIO/J&J VACCINE 2020-07-26 00:00:00 Completed [facility] SARS-COV-2 COVID-19 MAURICIO/J&J VACCINE 2020-07-26 00:00:00 Completed [facility] SARS-COV-2 COVID-19 MAURICIO/J&J VACCINE 2020-07-26 00:00:00 Completed [facility] HPV 2013-11-11 00:00:00 Completed [facility] HPV 2013-11-11 00:00:00 Completed [facility] HPV 2013-11-11 00:00:00 Completed [facility] HPV 2013-11-11 00:00:00 Completed [facility] HPV 2013-11-11 00:00:00 Completed [facility] HPV 2013-11-11 00:00:00 Completed [facility] HPV 2013-11-11 00:00:00 Completed [facility] HPV 2013-11-11 00:00:00 Completed [facility] HPV 2013-11-11 00:00:00 Completed [facility] HPV 2013-11-11 00:00:00 Completed [facility] HPV 2013-11-11 00:00:00 Completed [facility] HPV 2013-11-11 00:00:00 Completed [facility] HPV 2013-11-11 00:00:00 Completed [facility] HPV 2013-11-11 00:00:00 Completed [facility] HPV 2013-11-11 00:00:00 Completed [facility] HPV 2013-11-11 00:00:00 Completed [facility] HPV 2013-11-11 00:00:00 Completed [facility] HPV 2013-11-11 00:00:00 Completed [facility] HPV 2013-11-11 00:00:00 Completed [facility] HPV 2013-11-11 00:00:00 Completed [facility] HPV 2013-11-11 00:00:00 Completed HPV 2013-09-11 00:00:00 Completed [facility] HPV 2013-09-11 00:00:00 Completed [facility] HPV 2013-09-11 00:00:00 Completed [facility] HPV 2013-09-11 00:00:00 Completed [facility] HPV 2013-09-11 00:00:00 Completed [facility] HPV 2013-09-11 00:00:00 Completed [facility] HPV 2013-09-11 00:00:00 Completed [facility] HPV 2013-09-11 00:00:00 Completed [facility] HPV 2013-09-11 00:00:00 Completed [facility] HPV 2013-09-11 00:00:00 Completed [facility] HPV 2013-09-11 00:00:00 Completed [facility] HPV 2013-09-11 00:00:00 Completed [facility] HPV 2013-09-11 00:00:00 Completed [facility] HPV 2013-09-11 00:00:00 Completed [facility] HPV 2013-09-11 00:00:00 Completed [facility] HPV 2013-09-11 00:00:00 Completed [facility] HPV 2013-09-11 00:00:00 Completed [facility] HPV 2013-09-11 00:00:00 Completed [facility] HPV 2013-09-11 00:00:00 Completed [facility] HPV 2013-09-11 00:00:00 Completed [facility] HPV 2013-09-11 00:00:00 Completed [facility] HPV 2013-05-10 00:00:00 Completed [facility] HPV 2013-05-10 00:00:00 Completed [facility] HPV 2013-05-10 00:00:00 Completed [facility] HPV 2013-05-10 00:00:00 Completed [facility] HPV 2013-05-10 00:00:00 Completed [facility] HPV 2013-05-10 00:00:00 Completed [facility] HPV 2013-05-10 00:00:00 Completed [facility] HPV 2013-05-10 00:00:00 Completed [facility] HPV 2013-05-10 00:00:00 Completed [facility] HPV 2013-05-10 00:00:00 Completed [facility] HPV 2013-05-10 00:00:00 Completed [facility] HPV 2013-05-10 00:00:00 Completed [facility] HPV 2013-05-10 00:00:00 Completed [facility] HPV 2013-05-10 00:00:00 Completed [facility] HPV 2013-05-10 00:00:00 Completed [facility] HPV 2013-05-10 00:00:00 Completed [facility] HPV 2013-05-10 00:00:00 Completed [facility] HPV 2013-05-10 00:00:00 Completed [facility] HPV 2013-05-10 00:00:00 Completed [facility] HPV 2013-05-10 00:00:00 Completed [facility] HPV 2013-05-10 00:00:00 Completed Meningococcal Polysaccharide (groups A, C, Y and W-135) conjugate vaccine (MCV4P) 2012-10-16 00:00:00 Completed [facility] Meningococcal Polysaccharide (groups A, C, Y and W-135) conjugate vaccine (MCV4P) 2012-10-16 00:00:00 Completed [facility] Meningococcal Polysaccharide (groups A, C, Y and W-135) conjugate vaccine (MCV4P) 2012-10-16 00:00:00 Completed [facility] Meningococcal Polysaccharide (groups A, C, Y and W-135) conjugate vaccine (MCV4P) 2012-10-16 00:00:00 Completed [facility] Meningococcal Polysaccharide (groups A, C, Y and W-135) conjugate vaccine (MCV4P) 2012-10-16 00:00:00 Completed Td 2010-10-28 00:00:00 Completed [facility] Td 2010-10-28 00:00:00 Completed [facility] Td 2010-10-28 00:00:00 Completed [facility] Td 2010-10-28 00:00:00 Completed [facility] Td 2010-10-28 00:00:00 Completed [facility] Td 2010-10-28 00:00:00 Completed [facility] Td 2010-10-28 00:00:00 Completed [facility] Td 2010-10-28 00:00:00 Completed [facility] Td 2010-10-28 00:00:00 Completed [facility] Td 2010-10-28 00:00:00 Completed [facility] Td 2010-10-28 00:00:00 Completed [facility] TD, NOS 2010-10-28 00:00:00 Completed [facility] TD, NOS 2010-10-28 00:00:00 Completed [facility] TD, NOS 2010-10-28 00:00:00 Completed [facility] TD, NOS 2010-10-28 00:00:00 Completed [facility] TD, NOS 2010-10-28 00:00:00 Completed [facility] TD, NOS 2010-10-28 00:00:00 Completed [facility] TD, NOS 2010-10-28 00:00:00 Completed [facility] TD, NOS 2010-10-28 00:00:00 Completed [facility] TD, NOS 2010-10-28 00:00:00 Completed [facility] TD, NOS 2010-10-28 00:00:00 Completed [facility] HEPATITIS A 2009-09-16 00:00:00 Completed [facility] HEPATITIS A 2009-09-16 00:00:00 Completed [facility] HEPATITIS A 2009-09-16 00:00:00 Completed [facility] HEPATITIS A 2009-09-16 00:00:00 Completed [facility] HEPATITIS A 2009-09-16 00:00:00 Completed MMR 2008-07-28 00:00:00 Completed [facility] TDAP 2008-07-28 00:00:00 Completed [facility] HEPATITIS A 2008-07-28 00:00:00 Completed Meningococcal Polysaccharide (groups A, C, Y and W-135) conjugate vaccine (MCV4P) 2008-07-28 00:00:00 Completed MMR 2008-07-28 00:00:00 Completed TDAP 2008-07-28 00:00:00 Completed HEPATITIS A 2008-07-28 00:00:00 Completed [facility] Meningococcal Polysaccharide (groups A, C, Y and W-135) conjugate vaccine (MCV4P) 2008-07-28 00:00:00 Completed [facility] MMR 2008-07-28 00:00:00 Completed [facility] TDAP 2008-07-28 00:00:00 Completed [facility] HEPATITIS A 2008-07-28 00:00:00 Completed [facility] Meningococcal Polysaccharide (groups A, C, Y and W-135) conjugate vaccine (MCV4P) 2008-07-28 00:00:00 Completed [facility] MMR 2008-07-28 00:00:00 Completed [facility] TDAP 2008-07-28 00:00:00 Completed [facility] HEPATITIS A 2008-07-28 00:00:00 Completed [facility] Meningococcal Polysaccharide (groups A, C, Y and W-135) conjugate vaccine (MCV4P) 2008-07-28 00:00:00 Completed [facility] MMR 2008-07-28 00:00:00 Completed [facility] TDAP 2008-07-28 00:00:00 Completed [facility] HEPATITIS A 2008-07-28 00:00:00 Completed [facility] Meningococcal Polysaccharide (groups A, C, Y and W-135) conjugate vaccine (MCV4P) 2008-07-28 00:00:00 Completed [facility] DTaP, Unspecified Formulation 2002-04-01 00:00:00 Completed [facility] MMR 2002-04-01 00:00:00 Completed [facility] IPV 2002-04-01 00:00:00 Completed [facility] DTaP, Unspecified Formulation 2002-04-01 00:00:00 Completed [facility] MMR 2002-04-01 00:00:00 Completed [facility] IPV 2002-04-01 00:00:00 Completed [facility] DTaP, Unspecified Formulation 2002-04-01 00:00:00 Completed [facility] MMR 2002-04-01 00:00:00 Completed [facility] IPV 2002-04-01 00:00:00 Completed [facility] DTaP, Unspecified Formulation 2002-04-01 00:00:00 Completed [facility] MMR 2002-04-01 00:00:00 Completed [facility] IPV 2002-04-01 00:00:00 Completed [facility] DTaP, Unspecified Formulation 2002-04-01 00:00:00 Completed MMR 2002-04-01 00:00:00 Completed IPV 2002-04-01 00:00:00 Completed DPT/HIB 1996 00:00:00 Completed [facility] Hep B, Unspecified Formulation 1996 00:00:00 Completed [facility] Poliovirus, Live, Oral, Trivalent 1996 00:00:00 Completed [facility] DPT/HIB 1996 00:00:00 Completed [facility] Hep B, Unspecified Formulation 1996 00:00:00 Completed [facility] Poliovirus, Live, Oral, Trivalent 1996 00:00:00 Completed [facility] DPT/HIB 1996 00:00:00 Completed [facility] Hep B, Unspecified Formulation 1996 00:00:00 Completed [facility] Poliovirus, Live, Oral, Trivalent 1996 00:00:00 Completed [facility] DPT/HIB 1996 00:00:00 Completed [facility] Hep B, Unspecified Formulation 1996 00:00:00 Completed [facility] Poliovirus, Live, Oral, Trivalent 1996 00:00:00 Completed [facility] DPT/HIB 1996 00:00:00 Completed Hep B, Unspecified Formulation 1996 00:00:00 Completed Poliovirus, Live, Oral, Trivalent 1996 00:00:00 Completed Hep B, Unspecified Formulation 1996 00:00:00 Completed [facility] Hep B, Unspecified Formulation 1996 00:00:00 Completed [facility] Hep B, Unspecified Formulation 1996 00:00:00 Completed [facility] Hep B, Unspecified Formulation 1996 00:00:00 Completed [facility] Hep B, Unspecified Formulation 1996 00:00:00 Completed DPT/HIB Unknown Completed Ying quintero - External HEPATITIS A- PEDI/ADOL Unknown Completed Ying Zuniga External Hepatitis B, Unspecified Unknown Completed Ying Zuniga External HPV 4 (Human Papillomavirus) Unknown Completed Ying ibarra - External HPV 9 (Human Papillomavirus) Unknown Completed Ying ibarra - External Meningococcal Vaccine- Conjugate(Menactra) Unknown Completed Ying castano - External MMR- Measles, Mumps, Rubella Unknown Completed Ying Zuniga External IPV- Inactivated Polio Vaccine Unknown Completed Ying Zuniga External OPV- Oral Polio Vaccine Unknown Completed Ying Queen - External Polio Vaccine Unknown Completed Ying Queen - External DTaP Unspecified Unknown Completed Jl Zuniga External Vital Signs Vital Name Observation Time Observation Value Comments S ource Systolic blood pressure 2024-09-11 15:15:00 104 mm[Hg] Ying Queen - External Diastolic blood pressure 2024-09-11 15:15:00 62 mm[Hg] Ying Queen - External Heart rate 2024-09-11 15:15:00 84 /min Ying Queen - External Body temperature 2024-09-11 15:15:00 36.67 Emmanuelle Ying Queen - External Respiratory rate 2024-09-11 15:15:00 15 /min Ying Queen - External Body height 2024-09-11 15:15:00 165.1 cm Ying Zuniga External Body weight 2024-09-11 15:15:00 125.193 kg Ying Seybold - External BMI 2024-09-11 15:15:00 45.93 kg/m2 Ying Seybold - External Oxygen saturation in Arterial blood by Pulse oximetry 2024-09-11 15:15:00 99 /min Ying Seybold - External Systolic blood pressure 2024-08-20 20:44:00 110 mm[Hg] Ying Seybold - External Diastolic blood pressure 2024-08-20 20:44:00 66 mm[Hg] Ying Seybold - External Heart rate 2024-08-20 20:44:00 80 /min Ying Seybold - External Body temperature 2024-08-20 20:44:00 36.78 Emmanuelle Ying Seybold - External Respiratory rate 2024-08-20 20:44:00 16 /min Ying Seybold - External Body height 2024-08-20 20:44:00 165.1 cm Ying Seybold - External Body weight 2024-08-20 20:44:00 130.727 kg Ying Seybold - External BMI 2024-08-20 20:44:00 47.96 kg/m2 Ying Seybold - External Systolic blood pressure 2024-07-22 21:08:00 122 mm[Hg] Ying Seybold - External Diastolic blood pressure 2024-07-22 21:08:00 74 mm[Hg] Ying Seybold - External Heart rate 2024-07-22 21:08:00 80 /min Ying Seybold - External Body temperature 2024-07-22 21:08:00 36.83 Emmanuelle Ying Seybold - External Respiratory rate 2024-07-22 21:08:00 16 /min Ying Seybold - External Body height 2024-07-22 21:08:00 165.1 cm Ying Seybold - External Body weight 2024-07-22 21:08:00 131.997 kg Ying Seybold - External BMI 2024-07-22 21:08:00 48.42 kg/m2 Ying Seybold - External Body height 2024-06-03 20:36:00 165.1 cm Ying Seybold - External Body weight 2024-06-03 20:36:00 130.636 kg Ying Seybold - External BMI 2024-06-03 20:36:00 47.93 kg/m2 Ying Seybold - External Systolic blood pressure 2024-04-11 07:00:00 140 mm[Hg] [facility] Diastolic blood pressure 2024-04-11 07:00:00 80 mm[Hg] [facility] Heart rate 2024-04-11 07:00:00 90 /min [facility] Body temperature 2024-04-11 07:00:00 37 Emmanuelle [facility] Oxygen saturation in Arterial blood by Pulse oximetry 2024-04-11 07:00:00 97 /min [facility] Respiratory rate 2024-04-11 06:06:00 18 /min [facility] Body height 2024-04-11 04:36:00 160 cm [facility] Body weight 2024-04-11 04:36:00 124.739 kg [facility] BMI 2024-04-11 04:36:00 48.71 kg/m2 [facility] Systolic blood pressure 2024-02-24 20:39:00 118 mm[Hg] Ying Seybold - External Diastolic blood pressure 2024-02-24 20:39:00 66 mm[Hg] Ying Seybold - External Heart rate 2024-02-24 20:39:00 80 /min Ying Seybold - External Body temperature 2024-02-24 20:39:00 36.94 Emmanuelle Ying Coyleybold - External Respiratory rate 2024-02-24 20:39:00 16 /min Ying Coyleybold - External Body height 2024-02-24 20:39:00 165.1 cm Ying Coyleybold - External Body weight 2024-02-24 20:39:00 128.459 kg Ying Seybold - External BMI 2024-02-24 20:39:00 47.13 kg/m2 Ying Seybold - External Systolic blood pressure 2022-12-03 00:15:00 118 mm[Hg] [facility] Diastolic blood pressure 2022-12-03 00:15:00 79 mm[Hg] [facility] Heart rate 2022-12-03 00:15:00 99 /min [facility] Body temperature 2022-12-03 00:15:00 37.44 Emmanuelle [facility] Respiratory rate 2022-12-03 00:15:00 15 /min [facility] Body height 2022-12-03 00:15:00 165.1 cm [facility] Body weight 2022-12-03 00:15:00 138.256 kg [facility] BMI 2022-12-03 00:15:00 50.72 kg/m2 [facility] Oxygen saturation in Arterial blood by Pulse oximetry 2022-12-03 00:15:00 98 /min [facility] Systolic blood pressure 2022-10-02 18:30:00 136 mm[Hg] [facility] Diastolic blood pressure 2022-10-02 18:30:00 75 mm[Hg] [facility] Heart rate 2022-10-02 18:30:00 80 /min [facility] Body temperature 2022-10-02 18:30:00 36.83 Emmanuelle [facility] Respiratory rate 2022-10-02 18:30:00 18 /min [facility] Body height 2022-10-02 18:30:00 162.6 cm [facility] Body weight 2022-10-02 18:30:00 132.904 kg [facility] BMI 2022-10-02 18:30:00 50.29 kg/m2 [facility] Systolic blood pressure 2022-04-30 16:31:00 133 mm[Hg] [facility] Diastolic blood pressure 2022-04-30 16:31:00 84 mm[Hg] [facility] Heart rate 2022-04-30 16:31:00 76 /min [facility] Body temperature 2022-04-30 16:31:00 35.83 Emmanuelle [facility] Respiratory rate 2022-04-30 16:31:00 18 /min [facility] Body height 2022-04-30 16:31:00 162.6 cm [facility] Body weight 2022-04-30 16:31:00 131.815 kg [facility] BMI 2022-04-30 16:31:00 49.88 kg/m2 [facility] Systolic blood pressure 2022-04-19 15:39:00 119 mm[Hg] [facility] Diastolic blood pressure 2022-04-19 15:39:00 76 mm[Hg] [facility] Heart rate 2022-04-19 15:39:00 81 /min [facility] Body temperature 2022-04-19 15:39:00 36.61 Emmanuelle [facility] Respiratory rate 2022-04-19 15:39:00 18 /min [facility] Body height 2022-04-19 15:39:00 162.6 cm [facility] Body weight 2022-04-19 15:39:00 131.044 kg [facility] BMI 2022-04-19 15:39:00 49.59 kg/m2 [facility] Systolic blood pressure 2022-03-03 15:17:00 125 mm[Hg] [facility] Diastolic blood pressure 2022-03-03 15:17:00 87 mm[Hg] [facility] Heart rate 2022-03-03 15:17:00 74 /min [facility] Body temperature 2022-03-03 15:17:00 36.83 Emmanuelle [facility] Respiratory rate 2022-03-03 15:17:00 18 /min [facility] Body height 2022-03-03 15:17:00 162.6 cm [facility] Body weight 2022-03-03 15:17:00 113.399 kg [facility] BMI 2022-03-03 15:17:00 42.91 kg/m2 [facility] Oxygen saturation in Arterial blood by Pulse oximetry 2022-03-03 15:17:00 99 /min [facility] Systolic blood pressure 2022-02-14 20:28:00 138 mm[Hg] [facility] Diastolic blood pressure 2022-02-14 20:28:00 85 mm[Hg] [facility] Heart rate 2022-02-14 20:28:00 66 /min [facility] Body temperature 2022-02-14 20:28:00 36.33 Emmanuelle [facility] Respiratory rate 2022-02-14 20:28:00 20 /min [facility] Body height 2022-02-14 20:28:00 162.6 cm [facility] Body weight 2022-02-14 20:28:00 124.059 kg [facility] BMI 2022-02-14 20:28:00 46.95 kg/m2 [facility] Systolic blood pressure 2022-01-24 22:13:00 144 mm[Hg] Had to try 3x before getting a reading [facility] Diastolic blood pressure 2022-01-24 22:13:00 98 mm[Hg] Had to try 3x before getting a reading [facility] Heart rate 2022-01-24 22:13:00 97 /min [facility] Body temperature 2022-01-24 22:13:00 36.89 Emmanuelle [facility] Respiratory rate 2022-01-24 22:13:00 18 /min [facility] Body height 2022-01-24 22:13:00 162.6 cm [facility] Body weight 2022-01-24 22:13:00 125.919 kg [facility] BMI 2022-01-24 22:13:00 47.65 kg/m2 [facility] Oxygen saturation in Arterial blood by Pulse oximetry 2022-01-24 22:13:00 98 /min [facility] Systolic blood pressure 2021-12-06 13:30:00 124 mm[Hg] [facility] Diastolic blood pressure 2021-12-06 13:30:00 54 mm[Hg] [facility] Heart rate 2021-12-06 13:30:00 72 /min [facility] Body temperature 2021-12-06 13:30:00 36.28 Emmanuelle [facility] Respiratory rate 2021-12-06 13:30:00 18 /min [facility] Body height 2021-12-06 13:30:00 165.1 cm [facility] Body weight 2021-12-06 13:30:00 130.296 kg [facility] BMI 2021-12-06 13:30:00 47.80 kg/m2 [facility] Procedures Procedure Date / Time Performed Performing Clinician Source COMP. METABOLIC PANEL (74957) 2024-04-11 06:05:00 Carmine Monroe [facility] CBC WITH DIFF 2024-04-11 06:05:00 Carmine Monroe [facility] INFLUENZA A/B RSV COVID NAAT 2024-04-11 06:05:00 Carmine Monroe [facility] POCT TEST 2024-04-11 05:12:00 Julia Monroe [facility] POCT SARS-COV-2 ANTIGEN (BINAX NOW) 2022-12-03 00:31:00 Jessika Manrique [facility] CBC WITH DIFF 2022-10-02 19:30:00 Jennifer Puri [facility] GLYCOSYLATED HEMOGLOBIN (A1C) 2022-10-02 19:30:00 Jennifer Puri [facility] HCV ANTIBODY 2022-10-02 19:30:00 Jennifer Puri [facility] GC & CHLAMYDIA AMPLIFIED ASSAY 2022-10-02 19:30:00 Jennifer Puri [facility] HIV 1/2 AG-AB WITH REFLEX 2022-10-02 19:30:00 Jennifer Puri [facility] TRICHOMONAS AMPLIFIED ASSAY 2022-10-02 19:30:00 Jennifer Puri [facility] PAP SMEAR-LIQUID BASED-CP 2022-10-02 19:30:00 Jennifer Puri [facility] SYPHILIS IGG/IGM 2022-10-02 19:30:00 Jennifer Puri [facility] PATIENT FINANCIAL POLICY 2022-10-02 18:08:46 Doctor Unassigned, Bazine [facility] POCT TEST 2022-04-30 16:35:00 Jonel Adams [facility] DISCLOSURE AND CONSENT, MEDICAL AND SURGICAL PROCEDURES 2022-04-30 06:01:00 Doctor Unassigned, Bazine [facility] POCT TEST 2022-04-19 15:41:00 Jonel Adams [facility] BASIC METABOLIC PANEL (NA, K, CL, CO2, GLUCOSE, BUN, CREATININE, CA) 2022-03-03 15:57:00 Tiana Antonio [facility] ETHANOL 2022-03-03 15:57:00 Tiana Antonio [facility] CBC WITH DIFF 2022-03-03 15:57:00 Tiana Antonio [facility] URINALYSIS 2022-03-03 15:57:00 Tiana Antonio [facility] URINE DRUG (IMMUNOASSAY) - COMPREHENSIVE DRUG SCREEN W/O REFLEX 2022-03-03 15:57:00 Tiana Antonio [facility] HB ECG ROUTINE & RHYTHM STRIP 2022-03-03 15:55:48 Tiana Antonio [facility] POCT TEST 2022-02-14 20:48:00 Jonel Adams [facility] ASSIGNMENT OF BENEFITS 2022-02-14 19:38:06 Docto r Unassigned, Bazine [facility] POCT URINALYSIS 2022-01-24 22:31:00 Jessika Manrique [facility] POCT TEST 2021-12-06 15:36:00 Jonel Adams [facility] Encounters Start Date/Time End Date/Time Encounter Type Admission Type Attending Clinicians Care Facility Care Department Encounter ID Source 2021-01-22 06:46:10 Emergency [facility] [id number] [facility] 2024-09-11 10:50:00 2024-09-11 10:50:00 Outpatient [id number] RODRIGUEZ [id number] [facility] 2024-09-11 10:15:00 2024-09-11 10:15:00 Outpatient SUSY ANDRE [id number] [facility] 2024-08-21 16:00:00 2024-08-21 16:00:00 Outpatient JEB DAVIS [id number] [facility] 2024-08-20 15:45:00 2024-08-20 15:45:00 Outpatient LAB45 YING RODRIGUEZ [id number] [facility] 2024-08-20 15:00:00 2024-08-20 15:00:00 Outpatient JEB DAVIS [id number] [facility] 2024-08-14 15:45:00 2024-08-14 15:45:00 Outpatient JEB DAVIS YING YING [id number] [facility] 2024-07-22 15:45:00 2024-07-22 15:45:00 Outpatient JEB DAVIS YING RODRIGUEZ [id number] [facility] 2024-07-13 15:45:00 2024-07-13 15:45:00 Outpatient JEB DAVIS YING RODRIGUEZ [id number] [facility] 2024-06-30 14:45:00 2024-06-30 14:45:00 Outpatient MIGUELTRISTIANRON RODRIGUEZ [id number] [facility] 2024-06-23 15:30:00 2024-06-23 15:30:00 Outpatient R [facility] [id number] [facility] 2024-06-04 00:00:00 2024-06-04 00:00:00 Outpatient BRADEN GUERRIER [id number] [facility] 2024-06-03 15:30:00 2024-06-03 15:30:00 Outpatient FRANKIE DIETZ [id number] [facility] 2024-06-03 00:00:00 2024-06-03 00:00:00 Outpatient MD YING RAMÍREZ [id number] [facility] 2024-06-02 14:30:00 2024-06-02 14:30:00 Outpatient R ESTEVAN ADAMS [facility] [id number] [facility] 2024-06-02 00:00:00 2024-06-02 00:00:00 Outpatient BRADEN GUERRIER [id number] [facility] 2024-04-28 23:58:00 2024-04-29 02:03:00 Emergency Emergency PRESLEY MUNOZ [facility] General Medicine [id number] [facility] 2024-04-27 08:00:00 2024-04-27 08:00:00 Outpatient MANDIE, SHIRE YING RODRIGUEZ [id number] [facility] 2024-04-24 14:45:00 2024-04-24 14:45:00 Outpatient JEB DAVIS [id number] [facility] 2024-04-17 13:45:00 2024-04-17 13:45:00 Outpatient YAN GRAHAM [facility] [id number] [facility] 2024-04-13 08:15:00 2024-04-13 08:15:00 Outpatient JEB DAVIS [id number] [facility] 2024-04-10 22:41:00 2024-04-11 01:27:00 Emergency X [facility] [id number] [facility] 2024-04-10 22:41:00 2024-04-11 01:27:00 Emergency Carmine Monroe [facility] 1.2.840.114 350.1.13.10 4.2.7.2.686 [id number] [facility] 2024-03-16 15:00:00 2024-03-16 15:00:00 Outpatient MARILOU JARAMILLO [id number] [facility] 2024-03-12 15:00:00 2024-03-12 15:00:00 Outpatient JEB DAVIS [id number] [facility] 2024-02-25 10:30:00 2024-02-25 10:30:00 Outpatient MARILOU JARAMILLO [id number] [facility] 2024-02-24 13:45:00 2024-02-24 13:45:00 Outpatient JEB DAVIS [id number] [facility] 2023-09-18 14:00:00 2023-09-18 14:00:00 Outpatient YAN GRAHAM [facility] [id number] [facility] 2023-08-30 15:15:00 2023-08-30 15:15:00 Outpatient R ESTEVAN ADAMS [facility] [id number] [facility] 2023-08-29 10:45:00 2023-08-29 10:45:00 Outpatient R YAN POPE [facility] [id number] [facility] 2023-02-21 15:00:00 2023-02-21 15:00:00 Outpatient R ESTEVAN ADAMS [facility] [id number] [facility] 2023-01-22 08:30:00 2023-01-22 08:30:00 Outpatient R ESTEVAN ADAMS [facility] [id number] [facility] 2023-01-18 00:00:00 2023-01-18 00:00:00 Telephone Estevan Adams [facility] [employer] [facility] & CHILD [facility] 1.2.840.114 350.1.13.10 4.2.7.2.686 [id number] [facility] 2023-01-14 14:00:00 2023-01-14 14:00:00 Outpatient R JUDE S, OMKAR JUDE S, OMKAR [facility] [id number] [facility] 2022-12-04 00:00:00 2022-12-04 00:00:00 Telephone Jessika Manrique [facility] 1.2.840.114 350.1.13.10 4.2.7.2.686 [id number] [facility] 2022-12-02 19:00:00 2022-12-02 19:35:03 Outpatient R JESSIKA MANRIQUE [facility] [id number] [facility] 2022-12-02 19:00:00 2022-12-02 19:20:00 Urgent Care Jessika Manrique Unknown, Attending [facility] 1.2.840.114 350.1.13.10 4.2.7.2.686 [id number] [facility] 2022-10-04 00:00:00 2022-10-04 00:00:00 Telephone Jennifer Puri [facility] [employer] [facility] & CHILD [facility] 1.2.840.114 350.1.13.10 4.2.7.2.686 [id number] [facility] 2022-10-02 13:30:00 2022-10-02 14:31:55 Outpatient R JENNIFER PURI [facility] [id number] [facility] 2022-10-02 13:30:00 2022-10-02 14:31:55 Office Visit Jennifer Puri [facility] [employer] [facility] CHILD [facility] 1.2.840.114 350.1.13.10 4.2.7.2.686 [id number] 107 [id number] [facility] 2022-10-02 00:00:00 2022-10-02 00:00:00 Orders Only Doctor Unassigned, Bazine [facility] 1.2.840.114 350.1.13.10 4.2.7.2.686 [id number] [facility] 2022-07-04 13:15:00 2022-07-04 13:15:00 Outpatient SIRIA MAGANA [facility] [id number] [facility] 2022-07-04 13:15:00 2022-07-04 13:15:00 Outpatient SIRIA MAGANA [facility] [id number] [facility] 2022-07-04 13:00:00 2022-07-04 13:00:00 Outpatient SIRIA MAGANA [facility] [id number] [facility] 2022-04-30 10:00:00 2022-04-30 10:30:00 Office Visit Estevan Adams [facility] [employer] [facility] CHILD [facility] 1.2.840.114 350.1.13.10 4.2.7.2.686 [id number] 107 [id number] [facility] 2022-04-30 10:00:00 2022-04-30 10:00:00 Outpatient R ESTEVAN ADAMS [facility] [id number] [facility] 2022-04-30 00:00:00 2022-04-30 00:00:00 Orders Only Doctor Unassigned, Bazine [facility] 1..840.114 350.1.13.10 4.2.7.2.686 [id number] [facility] 2022-04-19 09:30:00 2022-04-19 10:05:06 Outpatient R ESTEVAN ADAMS [facility] [id number] [facility] 2022-04-19 09:30:00 2022-04-19 10:05:06 Office Visit Estevan Adams [facility] [employer] [facility] CHILD [facility] 1..840.114 350.1.13.10 4.2.7.2.686 [id number] 107 [id number] [facility] 2022-04-19 00:00:00 2022-04-19 00:00:00 Letter (Out) Estevan Adams [facility] [employer] [facility] CHILD [facility] 1..840.114 350.1.13.10 4.2.7.2.686 [id number] 107 [id number] [facility] 2022-03-07 09:45:00 2022-03-07 09:45:00 Outpatient R SIRIA ANDERSON [facility] [id number] [facility] 2022-03-03 09:22:00 2022-03-03 12:44:00 Emergency X TIANA [facility] E[facility] [id number] [facility] 2022-03-03 09:22:00 2022-03-03 12:44:00 Emergency Paco, Tiana E [facility] 1.0.114 350.1.13.10 4.2.7.2.686 [id number] [facility] 2022-02-18 00:00:00 2022-02-18 00:00:00 Refill Estevan Adams [facility] [employer] [facility] & CHILD [facility] 1.0.114 350.1.13.10 4.2.7.2.686 [id number] [facility] 2022-02-14 13:30:00 2022-02-14 14:35:37 [facility] [employer] [facility] & CHILD [facility] 1.0.114 350.1.13.10 4.2.7.2.686 [id number] [facility] 2022-02-14 14:30:00 2022-02-14 14:30:00 Outpatient JENNIFER BALL [facility] [id number] [facility] 2022-02-14 13:30:00 2022-02-14 13:30:00 Outpatient JENNIFER BALL [facility] [id number] [facility] 2022-02-14 00:00:00 2022-02-14 00:00:00 Orders Only Doctor Unassigned, Bazine [facility] 1..114 350.1.13.10 4.2.7.2.686 [id number] [facility] 2022-02-14 00:00:00 2022-02-14 00:00:00 Telephone Siria Anderson [facility] 1..114 350.1.13.10 4.2.7.2.686 [id number] [facility] 2022-02-06 00:00:00 2022-02-06 00:00:00 Telephone Estevan Adams [facility] [employer] [facility] & CHILD [facility] 1.2840.114 350.1.13.10 4.2.7.2.686 [id number] [facility] 2022-01-24 17:20:00 2022-01-24 17:28:54 Outpatient R JESSIKA MANRIQUE [facility] [id number] [facility] 2022-01-24 17:20:00 2022-01-24 17:28:54 Urgent Care Jessika Manrique Unknown, Attending [facility] 1.840.114 350.1.13.10 4.2.7.2.686 [id number] [facility] 2022-01-01 00:00:00 2022-01-01 00:00:00 Refill Estevan Adams [facility] [employer] [facility] & CHILD [facility] 1.2840.114 350.1.13.10 4.2.7.2.686 [id number] 107 [id number] [facility] 2022-01-01 00:00:00 2022-01-01 00:00:00 Telephone Estevan Adams [facility] [employer] [facility] CHILD [facility] 1..840.114 350.1.13.10 4.2.7.2.686 [id number] 107 [id number] [facility] 2021-12-29 00:00:00 2021-12-29 00:00:00 Refill Estevan Adams [facility] [employer] [facility] & CHILD [facility] 1.2840.114 350.1.13.10 4.2.7.2.686 [id number] 107 [id number] [facility] 2021-12-06 08:15:00 2021-12-06 08:54:24 Office Visit Estevan Adams [facility] [employer] [facility]ERNAL & CHILD [facility] 1..840.114 350.1.13.10 4.2.7.2.686 [id number] 107 [id number] [facility] 2021-12-06 08:15:00 2021-12-06 08:54:24 Outpatient R NICOLASEVETTEESTEVAN [facility] [id number] [facility] 2021-12-06 08:15:00 2021-12-06 08:15:00 Outpatient R ESTEVAN ADAMS [facility] [id number] [facility] 2021-11-22 15:15:00 2021-11-22 15:15:00 Outpatient R NICOLASEVETTEESTEVAN [facility] [id number] [facility] 2021-11-21 00:00:00 2021-11-21 00:00:00 Telephone Siria Anderson [facility] [employer] [facility] & CHILD [facility] 1.840.114 350.1.13.10 4.2.7.2.686 [id number] 107 [id number] [facility] 2021-11-20 00:00:00 2021-11-20 00:00:00 Telephone Siria Anderson [facility] [employer] [facility] CHILD [facility] 1..840.114 350.1.13.10 4.2.7.2.686 [id number] 107 [id number] [facility] 2021-09-03 00:00:00 2021-09-03 00:00:00 Refill Siria Anderson [facility] [employer] [facility] & CHILD [facility] 1..840.114 350.1.13.10 4.2.7.2.686 [id number] 107 [id number] [facility] 2021-07-04 12:45:00 2021-07-04 13:31:36 Office Visit Siria Anderson [facility] [employer] [facility] & CHILD [facility] 1.2840.114 350.1.13.10 4.2.7.2.686 [id number] 107 [id number] [facility] 2021-07-04 12:45:00 2021-07-04 13:31:36 Outpatient SIRIA MAGANA [facility] [id number] [facility] 2021-07-04 12:45:00 2021-07-04 12:45:00 Outpatient SIRIA MAGANA [facility] [id number] [facility] 2021-07-04 00:00:00 2021-07-04 00:00:00 Telephone Maisha West [facility] 1.2.840.114 350.1.13.10 4.2.7.2.686 [id number] [facility] 2021-07-03 18:20:00 2021-07-03 18:53:48 Outpatient JESSIKA MCGUIRE [facility] [id number] [facility] 2021-07-03 18:20:00 2021-07-03 18:53:48 Urgent Care [facility] 1.2.840.114 350.1.13.10 4.2.7.2.686 [id number] [facility] 2021-07-03 18:20:00 2021-07-03 18:53:48 Outpatient JESSIKA MCGUIRE [facility] [id number] [facility] 2021-07-03 09:30:00 2021-07-03 09:30:00 Outpatient EASTON RIOJAS [id number] [facility] 2021-07-03 08:15:00 2021-07-03 08:15:00 Outpatient EASTON RIOJAS [id number] [facility] 2021-07-03 00:00:00 2021-07-03 00:00:00 Patient Secure Msg Siria Anderson [facility] [employer] [facility] & CHILD [facility] 1.840.114 350.1.13.10 4.2.7.2.686 [id number] 107 [id number] [facility] 2021-06-21 13:00:00 2021-06-21 14:53:50 Outpatient R SIRIA ANDERSON [facility] [id number] [facility] 2021-06-21 13:00:00 2021-06-21 14:53:50 Office Visit Siria Anderson [facility] [employer] [facility] CHILD [facility] 1.840.114 350.1.13.10 4.2.7.2.686 [id number] 107 [id number] [facility] 2021-06-21 13:00:00 2021-06-21 14:53:50 Outpatient R SIRIA ANDERSON [facility] [id number] [facility] 2021-05-31 08:00:00 2021-05-31 09:04:36 Outpatient R SIRIA ANDERSON [facility] [id number] [facility] 2021-05-31 08:00:00 2021-05-31 09:04:36 Routine Visit Siria Anderson [facility] [employer] [facility] CHILD [facility] .840.114 350.1.13.10 4.2.7.2.686 [id number] [facility] 2021-05-29 00:00:00 2021-05-29 00:00:00 Patient Secure Msg Siria Anderson Divya [facility] [employer] [facility] & CHILD [facility] 1.840.114 350.1.13.10 4.2.7.2.686 [id number] [facility] 2021-05-19 00:00:00 2021-05-19 00:00:00 Telephone Estevan Adams [facility] [employer] [facility] 1.2.840.114 350.1.13.10 4.2.7.2.686 [id number] 107 [id number] [facility] 2021-05-17 13:00:00 2021-05-17 13:00:00 Nurse Visit Nurse, Naun Lima [facility] & CHILD [facility] 1.2840.114 350.1.13.10 4.2.7.2.686 [id number] 107 [id number] [facility] 2021-05-17 13:00:00 2021-05-17 08:46:02 Outpatient R SIRIA ANDERSON [facility] [id number] [facility] 2021-05-17 08:00:00 2021-05-17 08:45:55 Nurse Visit Visit, [facility]p [facility] [employer] & CHILD [facility] 1.840.114 350.1.13.10 4.2.7.2.686 [id number] 107 [id number] [facility] 2021-05-09 17:42:00 2021-05-12 16:52:00 [id number] [facility] 2021-05-09 17:42:00 2021-05-12 16:52:00 Hospital Encounter Jodee Almazan [facility] 1.2840.114 350.1.13.10 4.2.7.2.686 [id number] [facility] 2021-05-10 17:00:00 2021-05-10 18:47:00 Surgery Zbigniew Fernandez [facility] 1.2840.114 350.1.13.10 4.2.7.2.686 [id number] [facility] 2021-05-10 09:54:00 2021-05-10 18:34:00 Anesthesia Event Glen Mcgraw, [facility] 1.840.114 350.1.13.10 4.2.7.2.686 [id number] [facility] 2021-05-09 13:15:00 2021-05-09 14:00:22 Outpatient R SIRIA ANDERSON [facility] [id number] [facility] 2021-05-09 13:15:00 2021-05-09 14:00:22 Routine Visit Siria Anderson [facility] [employer] [facility] & CHILD [facility] 1.0.114 350.1.13.10 4.2.7.2.686 [id number] 107 [id number] [facility] 2021-05-02 15:30:00 2021-05-02 15:58:07 Outpatient R SIRIA ANDERSON [facility] [id number] [facility] 2021-05-02 15:30:00 2021-05-02 15:58:07 Routine Visit Siria Anderson [facility] [employer] [facility] MATERNAL & CHILD [facility] 1.0.114 350.1.13.10 4.2.7.2.686 [id number] 107 [id number] [facility] 2021-05-02 00:00:00 2021-05-02 00:00:00 Abstract Siria Anderson [facility] [employer] [facility]ERNAL & CHILD [facility] 1.2840.114 350.1.13.10 4.2.7.2.686 [id number] 107 [id number] [facility] 2021-04-28 09:30:00 2021-04-28 10:00:00 Through Operator Visit Ultrasound, Katelyn Whiting [facility] [employer] [facility]ER[facility] & CHILD [facility] 1.2840.114 350.1.13.10 4.2.7.2.686 [id number] [facility] 2021-04-28 09:30:00 2021-04-28 09:30:00 Outpatient P [facility] [id number] [facility] 2021-04-28 09:30:00 2021-04-28 09:30:00 Outpatient P [facility] [id number] [facility] 2021-04-28 09:30:00 2021-04-28 09:30:00 Outpatient P KATELYN CRUZ SHANNON [facility] [id number] [facility] 2021-04-25 15:30:00 2021-04-25 16:19:38 Outpatient R SIRIA ANDERSON [facility] [id number] [facility] 2021-04-25 15:30:00 2021-04-25 16:19:38 Routine Visit Siria Anderson [facility] [employer] [facility] CHILD [facility] 1..840.114 350.1.13.10 4.2.7.2.686 [id number] [facility] 2021-04-25 15:30:00 2021-04-25 15:30:00 Outpatient R SIRIA ANDERSON [facility] [id number] [facility] 2021-04-24 15:30:00 2021-04-24 15:30:00 Outpatient P [facility] [id number] [facility] 2021-04-21 00:00:00 2021-04-21 00:00:00 Telephone Siria Anderson [facility] [employer] [facility] CHILD [facility] ..840.114 350.1.13.10 4.2.7.2.686 [id number] 107 [id number] [facility] 2021-04-19 13:15:00 2021-04-19 13:15:00 Outpatient R SIRIA ANDERSON [facility] [id number] [facility] 2021-04-19 13:15:00 2021-04-19 13:15:00 Through [facility] An[facility] Andersonking Stokes [facility] [employer] [facility] & CHILD [facility] 1.2.840.114 350.1.13.10 4.2.7.2.686 [id number] 107 [id number] [facility] 2021-04-19 13:00:00 2021-04-19 13:00:00 Outpatient P [facility] [id number] [facility] 2021-04-19 00:00:00 2021-04-19 00:00:00 Telephone Anderson, Roskali Stokes [facility] [employer] [facility] & CHILD [facility] 1.2.840.114 350.1.13.10 4.2.7.2.686 [id number] 107 [id number] [facility] 2021-04-18 15:30:00 2021-04-18 16:11:31 Outpatient SIRIA MAGANA [facility] [id number] [facility] 2021-04-18 15:30:00 2021-04-18 16:11:31 Routine Visit Anderson, Sirai Stokes [facility] [employer] [facility] CHILD [facility] 1.2.840.114 350.1.13.10 4.2.7.2.686 [id number] [facility] 2021-04-18 15:30:00 2021-04-18 16:11:31 Outpatient SIRIA MAGANA [facility] [id number] [facility] 2021-04-18 15:30:00 2021-04-18 15:30:00 Outpatient SIRIA MAGANA [facility] [id number] [facility] 2021-04-11 13:00:00 2021-04-11 14:15:13 Outpatient SIRIA MAGANA [facility] [id number] [facility] 2021-04-11 13:00:00 2021-04-11 14:15:13 Outpatient R SIRIA ANDERSON [facility] [id number] [facility] 2021-04-11 13:00:00 2021-04-11 14:15:13 Routine Visit Luda Andersonpaulettealiviaking Stokes [facility] [employer] [facility] CHILD [facility] 1..114 350.1.13.10 4.2.7.2.686 [id number] 107 [id number] [facility] 2021-04-11 13:00:00 2021-04-11 13:00:00 Outpatient R SIRIA ANDERSON [facility] [id number] [facility] 2021-03-29 00:00:00 2021-03-29 00:00:00 Telephone Luda Andersonkali [facility] 1.84.114 350.1.13.10 4.2.7.2.686 [id number] [facility] 2021-03-22 14:30:00 2021-03-22 14:51:40 Outpatient R LUDA ANDERSONKALI [facility] [id number] [facility] 2021-03-22 14:30:00 2021-03-22 14:51:40 Routine Visit Siria Anderson Antonio [facility] 1.84.114 350.1.13.10 4.2.7.2.686 [id number] [facility] 2021-03-22 14:30:00 2021-03-22 14:30:00 Outpatient R LUDA ANDERSONKALI [facility] [id number] [facility] 2021-03-22 14:00:00 2021-03-22 14:30:00 Through Operator Visit Ultrasound, [facility] Siria [facility] [employer] [facility] 1..114 350.1.13.10 4.2.7.2.686 [id number] [facility] 2021-03-22 00:00:00 2021-03-22 00:00:00 Abstract Martinez Siria [facility] [employer] [facility] 1.2.840.114 350.1.13.10 4.2.7.2.686 [id number] [facility] 2021-03-15 00:00:00 2021-03-15 00:00:00 Patient Secure Msg Martinez Siria [facility] [employer] [facility] 1.2.840.114 350.1.13.10 4.2.7.2.686 [id number] [facility] 2021-03-14 00:00:00 2021-03-14 00:00:00 Telephone AndersonSiria [facility] [employer] [facility] 1.2.840.114 350.1.13.10 4.2.7.2.686 [id number] 107 [id number] [facility] 2021-03-13 00:00:00 2021-03-13 00:00:00 Aaron Dy[facility] [employer] [facility] 1.2.840.114 350.1.13.10 4.2.7.2.686 [id number] [facility] 2021-03-13 00:00:00 2021-03-13 00:00:00 Refill Siria Anderson [facility] [employer] [facility] 1.2.840.114 350.1.13.10 4.2.7.2.686 [id number] [facility] 2021-03-10 00:00:00 2021-03-10 00:00:00 RefSiria Webb [facility] [employer] [facility] 1.2.840.114 350.1.13.10 4.2.7.2.686 [id number] [facility] 2021-03-10 00:00:00 2021-03-10 00:00:00 Aaron Dykes [facility] [employer] [facility]ILD [facility] 1.2.840.114 350.1.13.10 4.2.7.2.686 [id number] [facility] 2021-03-09 15:45:00 2021-03-09 16:18:23 Outpatient SIRIA MAGANA [facility] [id number] [facility] [facility] 2021-03-09 15:45:00 2021-03-09 16:18:23 Routine Visit Siria Anderson [facility] [employer] [facility] 1.2.840.114 350.1.13.10 4.2.7.2.686 [id number] [facility] 2021-03-09 00:00:00 2021-03-09 00:00:00 Aaron Dykes [facility] [employer] [facility] 1.2.840.114 350.1.13.10 4.2.7.2.686 [id number] [facility] 2021-03-09 00:00:00 2021-03-09 00:00:00 Siria Lechuga [facility] [employer] [facility] 1.2.840.114 350.1.13.10 4.2.7.2.686 [id number] [facility] 2021-03-08 15:45:00 2021-03-08 15:45:00 Outpatient SIRIA MAGANA [facility] [id number] [facility] 2021-02-22 10:00:00 2021-02-22 11:57:26 Outpatient R AARON ALICEA [facility] [id number] [facility] 2021-02-22 09:59:09 2021-02-22 11:57:26 Routine Visit Provider, Aaron Barlow [facility] [employer] [facility] 1.2.840.114 350.1.13.10 4.2.7.2.686 [id number] [facility] 2021-02-13 10:52:00 2021-02-13 11:22:00 Through Operator Visit Ultrasound, Silvana Ruff [facility] [employer] [facility] 1.2.840.114 350.1.13.10 4.2.7.2.686 [id number] [facility] 2021-02-13 10:45:00 2021-02-13 10:45:00 Outpatient [facility] [id number] [facility] 2021-02-13 00:00:00 2021-02-13 00:00:00 Case Management Bo Rivera [facility] [employer] [facility] 1.2.840.114 350.1.13.10 4.2.7.2.686 [id number] 107 [id number] [facility] 2021-02-03 00:00:00 2021-02-03 00:00:00 Telephone Aaron Alicea [facility] [employer] [facility] 1.84.114 350.1.13.10 4.2.7.2.686 [id number] [facility] 2021-02-01 10:45:00 2021-02-01 11:09:09 Outpatient R BO RIVERA [facility] [id number] [facility] 2021-02-01 10:04:55 2021-02-01 11:09:09 Routine Visit Provider, Ang-Rmchp Bo Jorgensen [facility] [employer] [facility] 1.2.840.114 350.1.13.10 4.2.7.2.686 [id number] [facility] 2021-01-31 00:00:00 2021-01-31 00:00:00 Refill Onofre Counts include 234 beds at the [facility] 1..840.114 350.1.13.10 4.2.7.2.686 [id number] [facility] 2021-01-30 00:00:00 2021-01-30 00:00:00 Telephone Aaron Alicea [facility] [employer] [facility] 1..840.114 350.1.13.10 4.2.7.2.686 [id number] [facility] 2021-01-29 00:00:00 2021-01-29 00:00:00 Refill Siria Anderson [facility] [employer] [facility] 1.2.840.114 350.1.13.10 4.2.7.2.686 [id number] 107 [id number] [facility] 2021-01-29 00:00:00 2021-01-29 00:00:00 Refill Onofre Counts include 234 beds at the [facility]?GALILEAKing [facility] 1..840.114 350.1.13.10 4.2.7.2.686 [id number] [facility] 2021-01-19 14:40:00 2021-01-19 15:06:44 Outpatient AMAYA HARDIN [facility] [id number] [facility] 2021-01-19 14:22:57 2021-01-19 15:06:44 Urgent Care Nguyễn Adhikari Cathy [facility] 1.114 350.1.13.10 4.2.7.2.686 [id number] [facility] 2021-01-04 00:00:00 2021-01-04 00:00:00 Telephone AndersonSiria [facility] [employer] [facility] 1..114 350.1.13.10 4.2.7.2.686 [id number] [facility] 2021-01-03 00:00:00 2021-01-03 00:00:00 Telephone MartinezSiria [facility] [employer] [facility] 1..114 350.1.13.10 4.2.7.2.686 [id number] [facility] 2021-01-03 00:00:00 2021-01-03 00:00:00 Telephone Luda Andersonkali [facility] [employer] [facility] 1..114 350.1.13.10 4.2.7.2.686 [id number] [facility] 2021-01-02 10:45:39 2021-01-02 11:10:03 Routine Visit Provider, Aaron Barlow [facility] [employer] [facility] 1..114 350.1.13.10 4.2.7.2.686 [id number] 107 [id number] [facility] 2021-01-02 10:45:00 2021-01-02 10:45:00 Outpatient R [facility] [id number] [facility] 2020-12-21 10:52:25 2020-12-21 11:26:21 Office Visit Palmira Phillips Joseph [facility] 1.2.840.114 350.1.13.10 4.2.7.2.686 [id number] [facility] 2020-12-21 10:30:00 2020-12-21 10:30:00 Outpatient P [facility] [id number] [facility] 2020-12-19 08:20:30 2020-12-19 09:35:30 Through Operator Visit Ultrasound, Gianni Virk [facility] [employer] [facility] 1.2.840.114 350.1.13.10 4.2.7.2.686 [id number] [facility] 2020-12-19 08:00:00 2020-12-19 08:00:00 Outpatient P [facility] [id number] [facility] 2020-12-19 00:00:00 2020-12-19 00:00:00 Abstract Siria Anderson [facility] [employer] [facility] 1.2.840.114 350.1.13.10 4.2.7.2.686 [id number] 107 [id number] [facility] 2020-12-07 00:00:00 2020-12-07 00:00:00 Telephone Siria Anderson [facility] [employer] [facility] 1.2.840.114 350.1.13.10 4.2.7.2.686 [id number] [facility] 2020-12-05 10:15:59 2020-12-05 10:54:56 Routine Visit Siria Anderson [facility] [employer] [facility] 1.2.840.114 350.1.13.10 4.2.7.2.686 [id number] [facility] 2020-12-05 10:15:59 2020-12-05 10:54:56 Routine Visit Siria Anderson [facility] [employer] [facility] 1.2840.114 350.1.13.10 4.2.7.2.686 [id number] 107 [id number] [facility] 2020-12-05 10:15:00 2020-12-05 10:15:00 Outpatient MONTSE MAGANAALIVIAKing [facility] [id number] [facility] 2020-11-07 08:42:18 2020-11-07 09:41:48 Routine Visit Anette Andersonking Divya [facility] [employer] [facility] 1.840.114 350.1.13.10 4.2.7.2.686 [id number] 107 [id number] [facility] 2020-11-07 08:45:00 2020-11-07 08:45:00 Outpatient MONTSE MAGANAALIVIAKing [facility] [id number] [facility] 2020-11-01 00:00:00 2020-11-01 00:00:00 Telephone Siria Anderson [facility] [employer] [facility] 1.840.114 350.1.13.10 4.2.7.2.686 [id number] [facility] 2020-10-27 00:00:00 2020-10-27 00:00:00 Patient Secure Msg Doctor Unassigned, Bazine [facility] [employer] [facility] 1.840.114 350.1.13.10 4.2.7.2.686 [id number] [facility] 2020-10-27 00:00:00 2020-10-27 00:00:00 Telephone Siria Anderson [facility] [employer] [facility] 1.2840.114 350.1.13.10 4.2.7.2.686 [id number] [facility] 2020-10-26 00:00:00 2020-10-26 00:00:00 Telephone AndersonSiria [facility] [employer] [facility] 1.20.114 350.1.13.10 4.2.7.2.686 [id number] [facility] 2020-10-19 13:59:38 2020-10-19 14:29:38 Through Operator Visit Ultrasound, Cristin Jones [facility] [employer] [facility] 1.0.114 350.1.13.10 4.2.7.2.686 [id number] [facility] 2020-10-19 14:00:00 2020-10-19 14:00:00 Outpatient P [facility] [id number] [facility] 2020-10-19 00:00:00 2020-10-19 00:00:00 Abstract AndersonSiria [facility] [employer] [facility] 1.0.114 350.1.13.10 4.2.7.2.686 [id number] [facility] 2020-10-10 08:57:06 2020-10-10 09:57:15 Initial Visit Siria Anderson [facility] [employer] [facility] 1.20.114 350.1.13.10 4.2.7.2.686 [id number] [facility] 2020-10-10 08:30:00 2020-10-10 08:30:00 Outpatient R [facility] [id number] [facility] 2020-10-10 00:00:00 2020-10-10 00:00:00 Orders Only Doctor Unassigned, Bazine [facility] 1..114 350.1.13.10 4.2.7.2.686 [id number] [facility] 2020-06-24 16:00:00 2020-06-24 16:00:00 Outpatient R [facility] [id number] [facility] 2020-06-24 11:27:53 2020-06-24 11:49:24 Office Visit Leny [facility] Building 1.2.840.114 350.1.13.10 4.2.7.2.686 [id number] [facility] 2020-06-24 11:00:00 2020-06-24 11:00:00 Outpatient Divya [facility] [id number] [facility] 2020-06-14 00:00:00 2020-06-14 00:00:00 Patient Outreach Reji Cruz [facility] 1.840.114 350.1.13.10 4.2.7.2.686 [id number] [facility] 2020-06-08 19:38:00 2020-06-09 12:50:00 Emergency Ann, Emma [place] 1.284.114 350.1.13.10 4.2.7.2.686 [id number] [facility] 2020-06-08 18:59:31 2020-06-08 19:19:31 Urgent Care Provider, [facility] Saadia Lovett [facility] Office Building One 1.84.114 350.1.13.10 4.2.7.2.686 [id number] [facility] 2020-06-08 18:40:00 2020-06-08 18:40:00 Outpatient SAADIA RAZO [facility] [id number] [facility] 2020-05-24 13:16:03 2020-05-24 14:05:26 [facility] 1.2.840.114 350.1.13.10 4.2.7.2.686 [id number] [facility] 2020-05-24 13:00:00 2020-05-24 13:00:00 [facility] [id number] [facility] 2020-05-19 13:00:00 2020-05-19 13:00:00 Outpatient R BARBYYOVANY [facility] [id number] [facility] 2020-05-19 00:00:00 2020-05-19 00:00:00 Orders Only Doctor Unassigned, Bazine [facility] 1.2.840.114 350.1.13.10 4.2.7.2.686 [id number] [facility] 2020-03-28 19:14:32 2020-03-28 19:51:01 Urgent Care Amaya Peña [facility] Office Building [facility] 1.2.840.114 350.1.13.10 4.2.7.2.686 [id number] [facility] 2020-03-28 19:20:00 2020-03-28 19:20:00 Outpatient R [facility] [id number] [facility] 2020-03-28 00:00:00 2020-03-28 00:00:00 Letter (Out) Doctor Unassigned, Bazine [facility] 1.2840.114 350.1.13.10 4.2.7.2.686 [id number] [facility] 2020-01-15 08:15:00 2020-01-15 08:15:00 Outpatient R JAIME CLEMENT [facility] [id number] [facility] 2019-03-12 14:26:14 2019-03-12 23:59:00 Outpatient JAIME CLEMENT [facility] [id number] [facility] Results Test Description Test Time Test Comments Results Result Co mments Source [facility] with [id number] 06:29:27* Test Item Value Reference Range Interpretation [...] g/dL 31.6-35.1 L RDW-SD (test code = 88017-9) 39.6 fL 39.0-49.9 RDW-CV (test code = 788-0) 13.7 % 12.0-15.5 PLT (test code = 777-3) 426 166-358 H MPV (test code = 76799-4) 10.1 fL 9.5-12.9 NRBC/100 WBC (test code = 7411558294) 0.0 0.0-10.0 NRBC x10^3 (test code = 1505823822) See_Comment [Automated messa ge] The system which generated this result transmitted reference range: 10*3/?L. The reference range was not used to interpret this result as normal/abnormal. GRAN MAT (NEUT) % (test code = 770-8) 55.7 % IMM GRAN % (test code = 4818165618) 0.40 % LYMPH % (test code = 736-9) 37.1 % MONO % (test code = 5905-5) 5.6 % EOS % (test code = 713-8) 0.8 % BASO % (test code = 706-2) 0.4 % GRAN MAT x10^3(ANC) (test code = 8784736228) 5.34 10*3/uL 1.88-7.09 IMM GRAN x10^3 (test code = 9901258412) 0.04 10*3/uL 0.00-0.06 LYMPH x10^3 (test code = 731-0) 3.56 10*3/uL 1.32-3.29 H MONO x10^3 (test code = 742-7) 0.54 10*3/uL 0.33-0.92 EOS x10^3 (test code = 711-2) 0.08 10*3/uL 0.03-0.39 BASO x10^3 (test code = 704-7) 0.04 10*3/uL 0.01-0.07 Lab Interpretation (test code = 48373-1) Abnormal [facility] [id number] 05:12:00* Test Item Value Reference Range Interpretation Comme nts POCT PREG (test code = 1605) Negative On board controls acceptable with C Line (test code = 3574) Yes POCT PREG LOT # (test code = 3575) [id number] POCT PREG TEST DATE ( test code = 3576) 2025-03-09 Lab Interpretation (test cod e = 41853-5) Normal [facility] SARS-COV-2 ANTIGEN (BINAX NOW)2022-12-03 00:31:00* Test Item Value Reference Range Interpretation Comme nts POCT SARS-COV-2 ANTIGEN (test code = 45022-6) Not Detected Not Detected On board controls acceptable with C Line (test code = 3574) Yes VASHTI (test code = VASHTI) accurate developme nt and interpretation of all internal controls Lab Interpretation (test code = 52129-6) Normal [facility] ONLY - SYPHILIS [id number] 16:24:15* Test Item Value Reference Range Interpretation Comme nts Syphilis IgG/IgM (test code = 37676-4) Non-reactive Non-reactive VASHTI (test code = VASHTI) Non-reactive - No serologic evidence of T. pallidum infection. Cannot exclude incubating or early syphilis. Submit a second specimen in 2-4 weeks if syphilis is clinically suspected. Equivocal - Further testing to follow. Reactive - Further testing to follow. Lab Interpretation (test code = 65390-4) Normal [facility] ONLY - SYPHILIS [id number] 16:24:15* Test Item Value Reference Range Interpretation Comme nts Syphilis IgG/IgM (test code = 19838-7) Non-reactive Non-reactive VASHTI (test code = VASHTI) Non-reactive - No serologic evidence of T. pallidum infection. Cannot exclude incubating or early syphilis. Submit a second specimen in 2-4 weeks if syphilis is clinically suspected. Equivocal - Further testing to follow. Reactive - Further testing to follow. Lab Interpretation (test code = 94621-8) [facility] 07:09:19* Test Item Value Reference Range Interpretation Comme nts HGB A1C (test code = 4548-4) 5.3 % 4.0-5.7 VASHTI (test code = VASHTI) Reference RangesNormal: <5.7%Prediabetes: 5.7 - 6.4%Diabetes: > 6.5% Lab Interpretation (test code = 56212-1) Normal [facility]2022-10-03 07:09:19* Test Item Value Reference Range Interpretation Comme nts HGB A1C (test code = 4548-4) 5.3 % 4.0-5.7 VASHTI (test code = VASHTI) Reference RangesNormal: <5.7%Prediabetes: 5.7 - 6.4%Diabetes: > 6.5% Lab Interpretation (test code = 13975-9) Normal [facility] 1/2 AG-AB WITH [id number] 06:09:39* Test Item Value Reference Range Interpretation Comme nts HIV Semi-quantitative (test code = 76488-6) 0.09 Negative VASHTI (test code = VASHTI) Non-reactive for HIV-1 antigen and HIV-1/HIV-2 antibodies. ?No laboratory evidence of HIV infection. ?Repeat in 2-4 weeks if acute HIV infection is suspected. [facility] [id number] 06:09:39* Test Item Value Reference Range Interpretation Comme nts HCV Ab (test code = 36121-4) Negative HCV Semi-Quantitative (test code = 63912-1) 0.03 [facility] 1/2 AG-AB WITH [id number] 06:09:39* Test Item Value Reference Range Interpretation Comme nts HIV Semi-quantitative (test code = 16663-5) 0.09 Negative VASHTI (test code = VASHTI) Non-reactive for HIV-1 antigen and HIV-1/HIV-2 antibodies. ?No laboratory evidence of HIV infection. ?Repeat in 2-4 weeks if acute HIV infection is suspected. [facility] [id number] 06:09:39* Test Item Value Reference Range Interpretation Comme nts HCV Ab (test code = 88441-8) Negative HCV Semi-Quantitative (test code = 68863-5) 0.03 [facility] [id number] 05:35:17* Test Item Value Reference Range Interpretation [...] 31.7 g/dL 31.6-35.1 RDW-SD (test code = 72972-5) 38.7 fL 39.0-49.9 L RDW-CV (test code = 788-0) 13.0 % 12.0-15.5 PLT (test code = 777-3) 442 See_Comment H [Automated messa ge] The system which generated this result transmitted reference range: 166 - 358 10*3/?L. The reference range was not used to interpret this result as normal/abnormal. MPV (test code = 88293-8) 10.9 fL 9.5-12.9 NRBC/100 WBC (test code = 7562249685) 0.0 See_Comment [Automated me ssage] The system which generated this result transmitted reference range: 0.0 - 10.0 /100 WBCs. The reference range was not used to interpret this result as normal/abnormal. NRBC x10^3 (test code = 6426030292) See_Comment [Automated messa ge] The system which generated this result transmitted reference range: 10*3/?L. The reference range was not used to interpret this result as normal/abnormal. GRAN MAT (NEUT) % (test code = 770-8) 61.3 % IMM GRAN % (test code = 7243586523) 0.20 % LYMPH % (test code = 736-9) 32.8 % MONO % (test code = 5905-5) 4.5 % EOS % (test code = 713-8) 0.9 % BASO % (test code = 706-2) 0.3 % GRAN MAT x10^3(ANC) (test code = 9213193447) 6.11 10*3/uL 1.88-7.09 IMM GRAN x10^3 (test code = 7410259218) 0.00-0.06 LYMPH x10^3 (test code = 731-0) 3.27 10*3/uL 1.32-3.29 MONO x10^3 (test code = 742-7) 0.45 10*3/uL 0.33-0.92 EOS x10^3 (test code = 711-2) 0.09 10*3/uL 0.03-0.39 BASO x10^3 (test code = 704-7) 0.03 10*3/uL 0.01-0.07 Lab Interpretation (test code = 68024-3) Abnormal [facility] WITH [id number] 05:35:17* Test Item Value Reference Range Interpretation [...] 31.7 g/dL 31.6-35.1 RDW-SD (test code = 80986-7) 38.7 fL 39.0-49.9 L RDW-CV (test code = 788-0) 13.0 % 12.0-15.5 PLT (test code = 777-3) 442 See_Comment H [Automated messa ge] The system which generated this result transmitted reference range: 166 - 358 10*3/?L. The reference range was not used to interpret this result as normal/abnormal. MPV (test code = 66721-0) 10.9 fL 9.5-12.9 NRBC/100 WBC (test code = 5287013867) 0.0 See_Comment [Automated Mimetas ssage] The system which generated this result transmitted reference range: 0.0 - 10.0 /100 WBCs. The reference range was not used to interpret this result as normal/abnormal. NRBC x10^3 (test code = 6497265950) See_Comment [Automated messa ge] The system which generated this result transmitted reference range: 10*3/?L. The reference range was not used to interpret this result as normal/abnormal. GRAN MAT (NEUT) % (test code = 770-8) 61.3 % IMM GRAN % (test code = 1555801330) 0.20 % LYMPH % (test code = 736-9) 32.8 % MONO % (test code = 5905-5) 4.5 % EOS % (test code = 713-8) 0.9 % BASO % (test code = 706-2) 0.3 % GRAN MAT x10^3(ANC) (test code = 8674469586) 6.11 10*3/uL 1.88-7.09 IMM GRAN x10^3 (test code = 9282664705) 0.00-0.06 LYMPH x10^3 (test code = 731-0) 3.27 10*3/uL 1.32-3.29 MONO x10^3 (test code = 742-7) 0.45 10*3/uL 0.33-0.92 EOS x10^3 (test code = 711-2) 0.09 10*3/uL 0.03-0.39 BASO x10^3 (test code = 704-7) 0.03 10*3/uL 0.01-0.07 Lab Interpretation (test code = 02085-9) Abnormal [facility] [id number] 16:35:00* Test Item Value Reference Range Interpretation Comme nts POCT PREG (test code = 1605) Negative On board controls acceptable with C Line (test code = 3574) Yes POCT PREG LOT # (test code = 3575) POCT PREG TEST DATE ( test code = 3576) [facility] [id number] 16:35:00* Test Item Value Reference Range Interpretation Comme nts POCT PREG (test code = 1605) Negative On board controls acceptable with C Line (test code = 3574) Yes POCT PREG LOT # (test code = 3575) POCT PREG TEST DATE ( test code = 3576) [facility] [id number] 15:41:00* Test Item Value Reference Range Interpretation Comme nts POCT PREG (test code = 1605) Negative On board controls acceptable with C Line (test code = 3574) Yes POCT PREG LOT # (test code = 3575) POCT PREG TEST DATE ( test code = 3576) [facility] [id number] 15:41:00* Test Item Value Reference Range Interpretation Comme nts POCT PREG (test code = 1605) Negative On board controls acceptable with C Line (test code = 3574) Yes POCT PREG LOT # (test code = 3575) POCT PREG TEST DATE ( test code = 3576) [facility] [id number] 15:41:00* Test Item Value Reference Range Interpretation Comme nts POCT PREG (test code = 1605) Negative On board controls acceptable with C Line (test code = 3574) Yes POCT PREG LOT # (test code = 3575) POCT PREG TEST DATE ( test code = 3576) [facility] [id number] 15:41:00* Test Item Value Reference Range Interpretation Comme nts POCT PREG (test code = 1605) Negative On board controls acceptable with C Line (test code = 3574) Yes POCT PREG LOT # (test code = 3575) POCT PREG TEST DATE ( test code = 3576) [facility] [id number] 15:41:00* Test Item Value Reference Range Interpretation Comme nts POCT PREG (test code = 1605) Negative On board controls acceptable with C Line (test code = 3574) Yes POCT PREG LOT # (test code = 3575) POCT PREG TEST DATE ( test code = 3576) [facility] 16[facility]42:23 ALCOHOL<10mg/dL03/03/2022 10:42 AM [facility]10 [id number] Toxic>100 Depression of SHRINKER>400 Fatalities ReportedUnHereford [facility] CenterBASI METABOLIC PANEL (NA, K, CL, CO2, GLUCOSE, BUN, CREATININE, CA)2022-03-03 16:23:10* Test Item Value Reference Range Interpretation Comme nts NA (test code = 6667545178) 138 mmol/L 135-145 K (test code = 3795945596) 3.9 mmol/L 3.5-5.0 CL (test code = 8996423578) 106 mmol/L 98-108 CO2 TOTAL (test code = 6890882008) 24 mmol/L 23-31 AGAP (test code = 1844322877) 2-16 BUN (test code = 6425479326) 11 mg/dL 7-23 GLUCOSE (test code = 1838095807) 95 mg/dL 70-110 CREATININE (test code = 8089988092) 0.62 mg/dL 0.50-1.04 CALCIUM (test code = 0104480830) 9.4 mg/dL 8.6-10.6 eGFR (test code = 0292844206) mL/min/1.73m2 VASHTI (test code = VASHTI) Association [...] or urine or abnormalities in imaging tests). [facility] WITH [id number] 16:19:13* Test Item Value Reference Range Interpretation Comme nts WBC (test code = 6690-2) See_Comment [Automated charming charlie] The system which generated this result transmitted [...] 32.8 g/dL 31.6-35.1 RDW-SD (test code = 84449-2) 38.5 fL 39.0-49.9 L RDW-CV (test code = 788-0) 12.9 % 12.0-15.5 PLT (test code = 777-3) See_Comment [Automated messa ge] The system which generated this result transmitted reference range: 166 - 358 10*3/?L. The reference range was not used to interpret this result as normal/abnormal. MPV (test code = 29627-1) 10.2 fL 9.5-12.9 NRBC/100 WBC (test code = 4061948267) See_Comment [Automated Mimetas ssage] The system which generated this result transmitted reference range: 0.0 - 10.0 /100 WBCs. The reference range was not used to interpret this result as normal/abnormal. NRBC x10^3 (test code = 7346138180) See_Comment [Automated messa ge] The system which generated this result transmitted reference range: 10*3/?L. The reference range was not used to interpret this result as normal/abnormal. GRAN MAT (NEUT) % (test code = 770-8) 54.2 % IMM GRAN % (test code = 6414036194) 0.30 % LYMPH % (test code = 736-9) 39.1 % MONO % (test code = 5905-5) 5.1 % EOS % (test code = 713-8) 1.2 % BASO % (test code = 706-2) 0.1 % GRAN MAT x10^3(ANC) (test code = 1139234200) 3.94 10*3/uL 1.88-7.09 IMM GRAN x10^3 (test code = 0374021698) 0.00-0.06 LYMPH x10^3 (test code = 731-0) 2.84 10*3/uL 1.32-3.29 MONO x10^3 (test code = 742-7) 0.37 10*3/uL 0.33-0.92 EOS x10^3 (test code = 711-2) 0.09 10*3/uL 0.03-0.39 BASO x10^3 (test code = 704-7) 0.01-0.07 Lab Interpretation (test code = 41191-5) Abnormal [facility] [id number] 20:48:00* Test Item Value Reference Range Interpretation Comme nts POCT PREG (test code = 1605) Negative On board controls acceptable with C Line (test code = 3574) Yes POCT PREG LOT # (test code = 3575) POCT PREG TEST DATE ( test code = 3576) [facility] URINALYSIS W SPECIFIC [id number] 22:32:00* Test Item Value Reference Range Interpretation [...] development and interpretation of all internal controls [facility] URINALYSIS W SPECIFIC [id number] 22:32:00* Test Item Value Reference Range Interpretation [...] development and interpretation of all internal controls [id number]* Test Item Value Reference Range Interpretation Comme nts POCT PREG (test code = 1605) Negative On board controls acceptable with C Line (test code = 3574) Yes POCT PREG LOT # (test code = 3575) POCT PREG TEST DATE ( test code = 3576) [facility] Notes Date/Time Note Provider Source 2024-09-11 10:19:36 Chief Complaint Patient presents with Vaginal Problem Burning and itching Irene Torres MA [facility] 2024-08-20 15:44:28 Chief Complaint Patient presents with Nexplanon Insertion Deanne Pedersen MA T [facility] 2024-07-22 16:04:52 Chief Complaint Patient presents with Contraception Deanne Pedersen MA T [facility] 2024-04-11 01:25:30 Pt given printed and verbal [...] with steady gait, in no apparent distress. 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 2024-04-10 22:36:35 Pt arrived ambulatory without assist. Pt c/o headache that started this morning. 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 2024-02-24 14:36:46 Chief Complaint Patient presents with Well Woman Exam Molly Arias LVN [facility] 2022-12-05 10:12:02 Formatting of this n ote might be different from the original. Called to speak with [facility] in [place]. They state they did not ever get the prescription. Contacted the patient and she also has not received the prescription. She is requesting they be resent to [facility] in [place]. Re-ordered original prescription and sent to [facility] per patient request. [facility] 2022-12-04 18:01:37 Formatting of this n ote might be different from the original. Thao Lang is a 27 year old female [place] from [facility] called stating [facility] are wanting the prescriptions transferred. Please advise azelastine 137 mcg (0.1 %) nasal spray brompheniramine-pseudoephe drine-DM (BROMFED DM) 2-30-10 mg/5 mL syrup fluticasone propionate 50 mcg/actuation nasal spray methylPREDNISolone (MEDROL, KRISTA,) 4 mg tablets [facility] [place], [place] - [address] [place] [address] [address] [facility] & [address] [address] Nate Mcleod [facility]"
[2024-10-29 04:49] LABS: Absolute Lymphocytes (CBC) 3.5 K/uL (0.7-4.9); Hematocrit 38.6 % (36.0-45.0); Hemoglobin 12.9 g/dL (12.0-15.0); MCH 24.8 pg (27.0-35.0); MCHC 33.4 g/dL (32.0-36.0); MCV 74.4 fL (80-100); MPV 8.4 fL (7.6-11.3); Nucleated RBC Absolute Count 0.0 (0-0); Nucleated Red Blood Cells % 0.1 % (0-0); RBC Red Blood Cell Count 5.19 M/uL (3.86-4.86); White Blood Count 10.00 thou/uL (4.3-10.9)
[2024-10-29 05:00] LABS: PT Prothrombin Time 13.3 SECONDS (10-13.0); PTT, Activated Partial Thromb 28.9 SECONDS (27.2-37.4); Protime INR 1.18
[2024-10-29] MEDS ORDERED: HALOPERIDOL LACT 5 MG/ML INJ ONE (05:08)
--- NOTE | 2024-10-29 05:39 | EDPHYS ---
Physician Documentation [facility] Name: Thao Lang Age: 29 yrs Sex: Female : 1995 Arrival Date: 10/29/2024 Time: 03:50 Bed 18 Private MD: ED Physician Delta Patel HPI: 10/29 04:09 This 29 yrs old Female presents to ER via Unassigned with unknown complaint. rn 04:09 Patient with history of bipolar disorder and schizophrenia, 911 was called for possible rn manic episode. When EMS arrived reported possible adverse effect to Misael, then stated she is having trouble passing chicken and seafood. No fever or chills. No vomiting. No cough. Denies suicidal or homicidal ideations. Unclear if she is taking her psychiatric medication. Patient cannot tell me why she is here or how to help her.. 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 - Infectious Disease History:: Denies. - Family history:: not pertinent. - Social history:: Smoking status: Patient reports the use of cigarette tobacco products, denies chronic smoking, but will smoke occasionally, Patient uses alcohol, occasionally. street drugs, marijuana. - Hospitalizations: : No recent hospitalization is reported. ROS: 04:09 Constitutional: Negative for fever, chills, and weight loss, Cardiovascular: Negative rn for chest pain, palpitations, and edema, Respiratory: Negative for shortness of breath, cough, wheezing, and pleuritic chest pain, Abdomen/GI: Negative for abdominal pain, nausea, vomiting, diarrhea, and constipation, MS/Extremity: Negative for injury and deformity, Skin: Negative for injury, rash, and discoloration, Neuro: Negative for headache, weakness, numbness, tingling, and seizure, Psych: Positive for altered mental status, negative for suicidal ideation and homicidal ideation. Exam: 04:09 Constitutional: Patient disheveled, no acute distress Head/Face: Normocephalic, rn atraumatic. Cardiovascular: Regular rate and rhythm. No pulse deficits. Respiratory: No increased work of breathing, no retractions or nasal flaring. Abdomen/GI: Soft, non-tender MS/ Extremity: Pulses equal, no cyanosis. Neurovascular intact. Full, normal range of motion. Equal circumference. Neuro: Awake and alert, GCS 15 05:09 ECG was reviewed by the Attending Physician. rn Vital Signs: 04:08 BP 125 / 75; Pulse 73; Resp 18; Temp 97.3(O); Pulse Ox 100% on R/A; Weight 113.4 kg; br2 Height 5 ft. 5 in. ; Pain 5/10; 04:20 BP 126 / 83; Pulse 78; Resp 18; Pulse Ox 99% on R/A; Pain 0/10; tb4 04:08 Body Mass Index 41.60 (113.40 kg, 165.1 cm) br2 04:08 Pain Scale: Adult br2 04:20 Pain Scale: Adult tb4 MDM: 03:54 Medical Screening Exam initiated rn 05:37 Differential Diagnosis: electrolyte abnormality, volume depletion, Bipolar disorder, rn anxiety. Data reviewed: vital signs, nurses notes, lab test result(s), and as a result, I will discharge patient. Care significantly affected by the following chronic conditions: Bipolar disorder and schizophrenia. Counseling: I had a detailed discussion with the patient and/or guardian regarding the historical points, exam findings, and any diagnostic results supporting the discharge/admit diagnosis, lab results, the need for outpatient follow up, to return to the emergency department if symptoms worsen or persist or if there are any questions or concerns that arise at home. Special discussion: I discussed with the patient/guardian in detail that at this point there is no indication for admission to the hospital. It is understood, however, that if the symptoms persist or worsen the patient needs to return immediately for re-evaluation. Based on the history and exam findings, there is no indication for further emergent testing or inpatient evaluation. I discussed with the patient/guardian the need to see the psychiatrist for further evaluation of the symptoms. ED course: Patient getting anxious and wants to leave. Father is here and states that this is her baseline when she does not take her medication. He does not believe she needs to be transferred for psychiatric care at this time and requests refill of her medication that she has thrown away. Return precautions given and understood.. 10/29 04:04 Order name: Acetaminophen rn 10/29 04:04 Order name: Basic Metabolic Panel rn 10/29 04:04 Order name: CBC with Diff; Complete Time: 05:07 rn 10/29 04:04 Order name: ETOH Level; Complete Time: 05:24 rn 10/29 04:04 Order name: Hepatic Function rn 10/29 04:04 Order name: PT-INR; Complete Time: 05:07 rn 10/29 04:04 Order name: Ptt, Activated; Complete Time: 05:07 rn 10/29 04:04 Order name: Salicylate; Complete Time: 05:24 rn 10/29 04:04 Order name: Urine Drug Screen rn 10/29 04:04 Order name: EKG; Complete Time: 04:04 rn 10/29 04:04 Order name: EKG - Nurse/Tech; Complete Time: 05:06 rn 10/29 04:04 Order name: IV Saline Lock; Complete Time: 05:06 rn 10/29 04:04 Order name: Labs collected and sent; Complete Time: 05:06 rn 10/29 04:04 Order name: Suicide Screening ([place]); Complete Time: 05:46 rn 10/29 04:54 Order name: Misc. Order: recollect on green top, hemolyzed; Complete Time: 05:35 rv1 EC:09 Rate is 74 beats/min. Rhythm is regular. QRS [place] is Normal. TN interval is normal. QRS rn interval is normal. QT interval is normal. No Q waves. T waves are Normal. No ST changes noted. Clinical impression: Normal ECG. Interpreted by me. Reviewed by me. Administered Medications: 05:20 CANCELLED (Other Intervention Used): haldol (as decanoate)5 mg IM once lg3 05:34 Drug: Haloperidol IVP 5 mg IVP once Route: IVP; Site: right antecubital; tb4 05:47 Follow up: Response: Other tb4 Disposition Summary: 10/29/24 05:39 Discharge Ordered Notes: Location: Home rn Problem: chronic rn Symptoms: have improved rn Condition: Stable rn Diagnosis - Bipolar disorder, unspecified rn Followup: rn - With: Private Physician - When: As needed - Reason: Recheck today's complaints, Re-evaluation by your physician Discharge Instructions: - Discharge Summary Sheet rn - Maria Guadalupe rn - Managing Bipolar Disorder rn Forms: - Medication Reconciliation Form rn - Antibiotic rn womens [facility] - Prescription Opioid Use rn - Patient Portal Instructions rn - Leadership Thank You Letter rn Prescriptions: - Abilify 10 mg Oral tablet - take 1 tablet ORAL route daily; 60 tablet; Refills: 0, Product Selection rn Permitted - trazodone 50 mg Oral tablet - take 1 tablet ORAL route every day at bedtime As needed; 14 tablet; Refills: 0, rn Product Selection Permitted Signatures: Dispatcher [employer] EDMS Delta Patel MD MD rn Able, Lacie RN RN lg3 Marilin Graves rv1 Xiao Mcclure RN RN br2 Kalpana Sierra RN RN tb4 Corrections: (The following items were deleted from the chart) 05:20 04:04 HALdol (as decanoate) IM 5 mg IM once ordered. rn lg3
--- NOTE | 2024-10-29 05:39 | ER ---
Nurse's Notes [facility] Name: Thao Lang Age: 29 yrs Sex: Female : 1995 Arrival Date: 10/29/2024 Time: 03:50 Bed 18 Private MD: Diagnosis: Bipolar disorder, unspecified Presentation: 10/29 04:08 Chief complaint: Patient states: PT STATES SHE IS HAVING "ALLERGIC REACTION" TO br2 SEAFOOD, HOT SAUCE AND OZEMPIC "A WHITE PILL". PT C/O SOB AND A HEADACHE ...PT IS UNCLEAR ABOUT HER COMPLAINT. PT SPEAKS IN "WORD SALAD" AND IT'S HARD TO UNDERSTAND EXACTLY WHAT SHE IS MEANING. Coronavirus screen: Client denies travel out of the [place] in the last 14 days. Ebola Screen: Patient denies exposure to infectious person. Patient denies travel to an Ebola-affected area in the 21 days before illness onset. Initial Sepsis Screen: Does the patient meet any 2 criteria? No. Patient's initial sepsis screen is negative. Does the patient have a suspected source of infection? No. Patient's initial sepsis screen is negative. Risk Assessment: Do you want to hurt yourself or someone else? Patient reports no desire to harm self or others. Onset of symptoms is unknown. 04:08 Method Of Arrival: EMS: [facility] br2 04:08 Acuity: IZABELLA 3 br2 Triage Assessment: 04:17 General: Appears in no apparent distress. comfortable, Behavior is. Pain: Complains of br2 pain in forehead Pain currently is 5 out of 10 on a pain scale. 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 - Infectious Disease History:: Denies. - Family history:: not pertinent. - Social history:: Smoking status: Patient reports the use of cigarette tobacco products, denies chronic smoking, but will smoke occasionally, Patient uses alcohol, occasionally. street drugs, marijuana. - Hospitalizations: : No recent hospitalization is reported. Screenin:35 [facility] ED Fall Risk Assessment (Adult) History of falling in the last 3 months, tb4 including since admission No falls in past 3 months (0 pts) Confusion or Disorientation No (0 pts) Intoxicated or Sedated No (0 pts) Impaired Gait No (0 pts) Mobility Assist Device Used No (0 pt) Altered Elimination No (0 pt) Score/Fall Risk Level 0 - 2 = Low Risk Oriented to surroundings, Maintained a safe environment. Abuse screen: Denies threats or abuse. Nutritional screening: No deficits noted. Tuberculosis screening: No symptoms or risk factors identified. Assessment: 04:25 Reassessment: See triage note. General: Appears comfortable, Behavior is cooperative, tb4 flat. Pain: Complains of pain in forehead Pain does not radiate. Pain currently is 2 out of 10 on a pain scale. Quality of pain is described as aching, Pain began gradually, Is continuous. Neuro: Level of Consciousness is awake, alert, obeys commands, Speaks in word salad and easily forgets what she was saying.. Cardiovascular: No deficits noted. Denies chest pain. Respiratory: Airway is patent Trachea midline Respiratory effort is even, unlabored, Respiratory pattern is regular, symmetrical. GI: No deficits noted. No signs and/or symptoms were reported involving the gastrointestinal system. : No deficits noted. No signs and/or symptoms were reported regarding the genitourinary system. EENT: No deficits noted. No signs and/or symptoms were reported regarding the EENT system. Derm: Skin is intact, is healthy with good turgor, Skin is dry, Skin is pink, warm \\T\\ dry. Skin temperature is warm. Musculoskeletal: No deficits noted. No signs and/or symptoms reported regarding the musculoskeletal system. Circulation, motion, and sensation intact. Capillary refill < 3 seconds, is brisk, in bilateral fingers. Range of motion: intact in all extremities. Psych: 05:40 [place] Suicide Severity Screening: In the past month, have you wished you were tb4 or wished you could go to sleep and not wake up? Patient responds "No." "In the past month, have you actually had any thoughts of killing yourself?" Patient responds "no." "In your lifetime, have you ever done anything, started to do anything, or prepared to do anything to end your life?" Patient responds "no.". Subjective: Patient's mood is sad, Hallucinations are denied. Objective: Patient is cooperative, restless, Speech is normal, Affect is flat. Interventions: Urine collected and sent for urine drug test. Safety Checks: Pt has been placed in a hallway bed/chair. Visitors are present. Pt denies substance abuse. Commitment: Patient will be a voluntary commitment. Vital Signs: 04:08 BP 125 / 75; Pulse 73; Resp 18; Temp 97.3(O); Pulse Ox 100% on R/A; Weight 113.4 kg; br2 Height 5 ft. 5 in. ; Pain 5/10; 04:20 BP 126 / 83; Pulse 78; Resp 18; Pulse Ox 99% on R/A; Pain 0/10; tb4 04:08 Body Mass Index 41.60 (113.40 kg, 165.1 cm) br2 04:08 Pain Scale: Adult br2 04:20 Pain Scale: Adult tb4 ED Course: 03:54 Patient arrived in ED. rv1 03:54 Delta Patel MD is Attending Physician. rn 04:15 Triage completed. br2 04:17 Arm band placed on right wrist. br2 05:35 Patient has correct armband on for positive identification. Bed in low position. Call tb4 light in reach. Side rails up X 1. Client placed on continuous cardiac and pulse oximetry monitoring. NIBP monitoring applied. Door closed. Lights dimmed. Warm blanket given. 05:35 Inserted saline lock: 20 gauge in right antecubital area, using aseptic technique. tb4 Blood collected. Flushed with 10 mL NS. 05:35 No provider procedures requiring assistance completed. tb4 05:35 Initial lab(s) drawn, by me, sent to lab. Urine collected: clean catch specimen, tb4 cloudy, EKG done, by ED staff, reviewed by Delta Patel MD. 05:48 Provided Education on: Take medications as prescribed. tb4 05:48 IV discontinued, intact, bleeding controlled, No redness/swelling at site. Pressure tb4 dressing applied. Administered Medications: 05:20 CANCELLED (Other Intervention Used): haldol (as decanoate)5 mg IM once lg3 05:34 Drug: Haloperidol IVP 5 mg IVP once Route: IVP; Site: right antecubital; tb4 05:47 Follow up: Response: Other tb4 Medication: 05:38 VIS not applicable for this client. tb4 Outcome: 05:39 Discharge ordered by . rn 05:48 Discharged to home ambulatory, with family, tb4 05:48 Condition: stable 05:48 Discharge instructions given to patient, family, Instructed on discharge instructions, follow up and referral plans. Demonstrated understanding of instructions, follow-up care, medications, Prescriptions given X 3, 05:50 Patient left the ED. tb4 Signatures: Delta Patel MD MD rn Marilin Graves rv1 Xiao Mcclure RN RN br2 Kalpana Sierra RN RN tb4 Nai Verdugo RN lg3
[2024-10-29 06:03] VITALS: TEMP 97.3
[2024-10-29 06:05] VITALS: BP 126/83; O2SAT 99
[2024-10-29 06:07] LABS: ALT/SGPT 27 U/L (13-56); AST/SGOT 12 U/L (15-37); Albumin 3.5 g/dL (3.4-5.0); Albumin/Globulin Ratio 0.9 (1.1-1.8); Alkaline Phosphatase 68 U/L (45-117); Anion Gap 9.9 mEq/L (5.0-15.0); BUN Blood Urea Nitrogen 16 mg/dL (7-18); Bilirubin Indirect, Calculated 0.6 mg/dL (0.2-0.8); Globulin 3.8 g/dL (2.3-3.5); Glucose Level 107 mg/dL (74-106); Potassium 3.9 mEq/L (3.5-5.1)
[2024-10-29 06:10] LABS: METHAMPHETAM NEGATIVE (NEGATIVE); THC Cannibis POSITIVE (NEGATIVE)
== END 2024-10-29 05:50 | disposition home or self-care (01) ==
LOC: ER 03:50
DX: F31.9 Bipolar disorder, unspecified (principal); F17.210 Nicotine dependence, cigarettes, uncomplicated
CPT/HCPCS: 93005; 85025; 80048; 36415; 85610; 80076; 85730; 80307; 96374; 99285; 80143; 80179; 82077; J1630

== ENCOUNTER 2025-01-03 14:26 | Emergency (ER) | payer OTHER ==
--- OUTSIDE RECORDS SUMMARY | 2025-01-03 14:34 | XMS REPORT | Continuity of Care Document ---
Author Name Unknown Address [address] [facility]. [address] [place] [address] [facility] [place] Address [address] 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 Name Role Phone Estevan Oliveira Primary Care Physicia n Janeen Aguilar RN Attending Clinician Unavaila ble LAB90 Attending Clinician Unavailable SUSY ANDRE Attending Clinician JEB Scott Attending Clinician Unavailable LAB45 Attending Clinician Unavailable OZZIE RIVERA Attending Clinician Unavailab BRADEN Torres Attending Clinician Unavailable FRANKIE DIETZ Attending Clinician Unavailable MD RIKI Attending Clinician Unavailab ESTEVAN Reyes Attending Clinician Unavail able PRESLEY MUNOZ Attending Clinician Unavailable TISH LOCKWOOD Attending Clinician Unavailable YAN POPE Attending Clinician Unavailable CARMINE MONROE Attending Clinician Unavailable CARMINE MONROE Attending Clinician Unavailable Carmine aMrcial Attending Clinician MARILOU JARAMILLO Attending Clinician Unavailable OMKAR HOU Attending Clinician BELÉN BenderL Attending Clinician Unavai JULISSA Everett Attending Clinician Unavailable JENNIFER PURI Attending Clinician Unavaila galilea Adams [facility] Estevan Carlisle Attending Clinician + Burton MARC, Jessika Attending Clinician [phone] JESSIKA MANRIQUE Attending Clinician Unavailable Unknown, Attending Attending Clinician Unavailab jaime Puri CNM, Jennifer Malik Attending Clinician [phone] Doctor Unassigned, [place] Attending Clinician U SIRIA Dugan Attending Clinician Unavailab TIANA Argueta Attending Clinician Unavailable Tiana Antonio MD Attending Clinician [phone] Visit, [facility] Nurse Attending Clinician Unava yessi SHARMA, Siria Stokes Attending Clinician [phone] Maisha West RN Attending Clinician Unavailable EASTON RIOJAS Attending Clinician Unavailable [facility], [facility] Attending Clini luis felipe Unavailable JODEE ALAMZAN Attending Clinician Unavailable King MARC, Jodee Suarez Attending Clinician [phone] Zbigniew Fernandez MD Attending Clinician + [phone] Glen Mcgraw MD Attending Clinician [phone] Leonel Mason MD Attending Clinician [phone] Ultrasound, Ang-Mfm Attending Clinician Unavaila Katelyn Hutchinson MD Attending Clinician [phone] KATELYN CRUZ Attending Clinician Unavailable KATELYN CRUZ Attending Clinician Unavailable Lab, Ang-Rmchp Attending Clinician Unavailable Yelena Aaron SCHAEFFER Attending Clinician + AARON ALICEA Attending Clinician Unavail able Provider, Ang-chcaryn Temp Attending Clinician Dalila Silvana Whitehead MD Attending Clinician [phone] SILVANA VENEGAS Attending Clinician Unavailable SILVANA VENEGAS Attending Clinician Unavailable Bo Hernandez Attending Clinician [phone] BO RIVERA Attending Clinician UnavailNguyễn Ro Attending Clinician [phone] AMAYA PEÑA Attending Clinician Unavailable Green CUPOLA MECHANIC, Amaya Attending Clinician [phone] Palmira Phillips Attending Clinician Unavailyahaira Escoto MD, Yair Borjas Attending Clinician [phone] Sherman MARC, Gianni Chou Attending Clinician Robbie Wolfe MD, Cristin Attending Clinician + Leny MARC, Julissa Arguello Attending Clinician [phone] Reji Cruz DO Attending Clinician [phone] Seth CUPOLA MECHANIC, Emma Attending Clinician [phone] Tre MARC, Zoe Stinson Attending Clinician [phone] Provider, [facility] Attending Clinician Un available Bony CUPOLA MECHANIC, Saadia Attending Clinician [phone] SAADIA LOVETT Attending Clinician Unavailable Omar SHARMA, Delano Attending Clinician [phone] DELANO NELSON Attending Clinician UnavailYOVANY Barnhart Attending Clinician Unavailable JAIME CLEMENT Attending Clinician Unavailable JODEE ALMAZAN Admitting Clinician Unavailable King MARC, Jodee Suarez Admitting Clinician [phone] Julissa Michele MD Admitting Clinician [phone] Payers Payer Name Policy Type Policy Number Effective Date Expirati on Date Source [employer] [place] [employer] [id number] 2016 00:00:00 [facility] AMANDA GILMORE COPAY [employer]OCUS 9 [id number] 2024 00:00:00 [facility] [place]/ YING MARTINEZ [id number] 2024 00:00:00 [facility] [id number] 2024 00:00:00 2025 00:00:00 [employer] OON Exchange [id number] 2024 00:00:00 [place] [facility] [id number] 2022 00:00:00 MEDICAID PENDING PENDING 2020 00:00:00 Problems Condition Name Condition Details Condition Category Status Onset Date Resolution Date Last Treatment Date Treating Clinician Comments Source Presence of intrauteri ne contracept yamila device Presence of intrauteri ne contracept yamila device Disease Active 10-04 00:00: 00 [facility] History of abnormal cervical Pap smear History of abnormal cervical Pap smear Disease Active 10-04 00:00: 00 Overview: Formattin g of this note might be different from the original. 09/2020 LGSIL [facility] Upper respirator y symptom Upper respirator y symptom Disease Active 1-18 00:00: 00 [facility] Anemia of mother in , antepartum Anemia of mother in , antepartum Disease Active 2020-03 2-16 00:00: 00 [facility] Morbid obesity Morbid obesity Disease Active 1-06 00:00: 00 [facility] Folliculit is Folliculit is Disease Resolve d 4-12 00:00: 00 2022-10-04 00:00:00 2022-10-04 08:51:23 [facility] Flu vaccine need Flu vaccine need Disease Resolve d 3-30 00:00: 00 2022-10-04 00:00:00 2022-10-04 08:51:25 [facility] Vaginal lesion Vaginal lesion Disease Resolve d 3-30 00:00: 00 2022-10-04 00:00:00 2022-10-04 08:51:39 [facility] Flu vaccine need Flu vaccine need Disease Resolve d 3-30 00:00: 00 2022-10-04 00:00:00 2022-10-04 08:51:25 [facility] Elevated blood-pres sure reading, without diagnosis of hypertensi on Elevated blood-pres sure reading, without diagnosis of hypertensi on Disease Resolve d 2-15 00:00: 00 2022-10-04 00:00:00 2022-10-04 08:51:26 [facility] COVID COVID Disease Resolve d 2-01 00:00: 00 2022-10-04 00:00:00 2022-10-04 08:51:27 [facility] Upper respirator y symptom Upper respirator y symptom Disease Resolve d 1-18 00:00: 00 2022-10-04 00:00:00 2022-10-04 08:51:28 [facility] Abnormal glandular Papanicola ou smear of cervix Abnormal glandular Papanicola ou smear of cervix Disease Resolve d 8-04 00:00: 00 2022-10-04 00:00:00 2022-10-04 08:51:32 Overview: Formattin g of this note might be different from the original. LGSIL on 2020 pap smear, needs repeat in 12 months [facility] BMI 45.0-49.9, adult BMI 45.0-49.9, adult Disease Resolve d 7-19 00:00: 00 2022-10-04 00:00:00 2022-10-04 08:51:37 [facility] Screening examinatio n for STD (sexually transmitte d disease) Screening examinatio n for STD (sexually transmitte d disease) Disease Resolve d 2-16 00:00: 00 2022-10-04 00:00:00 2022-10-04 08:51:30 [facility] Research study patient Research study patient Disease Resolve d 2-16 00:00: 00 2022-04-19 00:00:00 2022-04-19 10:06:25 Overview: Formattin g of this note might be different from the original. PACT (fellow) [facility] Research study patient Research study patient Disease Resolve d 2-16 00:00: 00 2022-04-19 00:00:00 2022-04-19 10:06:25 [facility] GBS (group B Streptococ cus carrier), +RV culture, currently GBS (group B Streptococ cus carrier), +RV culture, currently Disease Resolve d 1-27 00:00: 00 2022-04-19 00:00:00 2022-04-19 10:06:35 Overview: Formattin g of this note might be different from the original. Address in labor and delivery. [facility] Anemia of mother in , antepartum Anemia of mother in , antepartum Disease Resolve d 2020-1 2-16 00:00: 00 2022-04-19 00:00:00 2022-04-19 10:06:42 [facility] Abnormal quad screen Abnormal quad screen Disease Resolve d 2020-1 2-16 00:00: 00 2022-04-19 00:00:00 2022-04-19 10:06:43 [facility] Supervisio n of high risk in third trimester Supervisio n of high risk in third trimester Disease Resolve d 2020-0 7-19 00:00: 00 2022-04-19 00:00:00 2022-04-19 10:06:21 [facility] SAB (spontaneo us ) SAB (spontaneo us ) Disease Resolve d 2020-0 7-19 00:00: 00 2022-04-19 00:00:00 2022-04-19 10:06:23 [facility] in first trimester with history of ectopic in first trimester with history of ectopic Disease Resolve d 2020-0 7-19 00:00: 00 2022-04-19 00:00:00 2022-04-19 10:06:27 [facility] Primigravi da in third trimester Primigravi da in third trimester Disease Resolve d 2020-0 7-19 00:00: 00 2022-04-19 00:00:00 2022-04-19 10:06:29 [facility] History of ectopic History of ectopic Disease Resolve d 2020-0 4-02 00:00: 00 2022-04-19 00:00:00 2022-04-19 10:06:32 [facility] 39 weeks gestation of 39 weeks gestation of Disease Resolve d 2021-0 2-15 00:00: 00 2021-05-17 00:00:00 2021-05-17 08:21:48 [facility] Ectopic without intrauteri ne Ectopic without intrauteri ne Disease Resolve d 317 00:00: 00 2020-06-24 00:00:00 2020-06-24 11:40:20 [facility] Nexplanon removal Nexplanon removal Disease Resolve d 05-10 00:00: 00 2020-06-08 00:00:00 2021-10-08 00:44:25 [facility] Rubella immune Rubella immune Disease Resolve d 04-17 00:00: 00 2016-05-10 00:00:00 2016-05-10 13:46:23 [facility] Insertion of implantabl e subdermal contracept yamila Insertion of implantabl e subdermal contracept yamila Disease Resolve d 04-17 00:00: 00 2016-05-10 00:00:00 2021-10-08 00:28:34 [facility] Anemia Anemia Disease Resolve d 04-01 00:00: 00 2016-05-10 00:00:00 2021-10-08 00:28:17 [facility] Encounter for routine gynecologi curtis examinatio n Encounter for routine gynecologi curtis examinatio n Disease Resolve d 03-30 00:00: 00 2016-05-10 00:00:00 2021-10-08 00:28:16 [facility] Allergies, Adverse Reactions, Alerts Allergy Name Allergy Type Status Severity Reaction(s) Onset Date Inactive Date Treating Clinician Comments Source NO KNOWN ALLERGIE S Drug Class Active [facility] Social History Social Habit Start Date Stop Date Quantity Comments Source History SDOH Alcohol Frequency [facility] History SDOH Alcohol Std Drinks [facility] History SDOH Alcohol Binge [facility] ASSERTION Not [facility] - External Sexual orientation [facility] castillo [facility] - External History of Social function 2024-09-11 00:00:00 2024-09-11 00:00:00 [facility] - External Alcoholic beverage intake 2024-04-11 00:00:2024-04-11 00:00:00 Current drinker of alcohol (finding) [facility] Alcohol Comment 2024-02-24 00:00:00 2024-02-24 00:00:00 occasionally [facility] - External Tobacco use and exposure 2024-02-24 00:00:00 2024-02-24 00:00:00 Smokeless tobacco non-user [facility] - External Alcohol intake 2022-12-02 00:00:00 2022-12-02 00:00:00 Current drinker of alcohol (finding) [facility] Exposure to SARS-CoV-2 (event) 2022-04-20 00:00:00 2022-04-30 10:31:00 Not sure [facility] Sex 2021-07-03 01:43:03 2021-07-03 01:43:03 Female (finding) [facility] - External Sex assigned at 1995 00:00:00 1995 00:00:00 [facility] - External Smoking Status Start Date Stop Date Source Never smoked tobacco [facility] mohsen - External Medications Ordered Medication Name Filled Medication Name Start Date Stop Date Current Medication? Ordering Clinician Indication Dosage Frequency Signature (SIG) Comments Components Source Fluconazole 150 MG oral Tablet 09-11 10:39: 07 Yes [id number] 150mg Take 1 tablet (150 mg total) by mouth once for 1 dose. [facility] - Externa l Amoxicillin -Pot Clavulanate 500-125 MG oral Tablet 09-11 00:00: 00 Yes [id number] 1{tbl} Q.5D Take 1 tablet by mouth in the morning and 1 tablet before bedtime. Ying Atkinsona l Etonogestre l (NEXPLANON) 68 MG SC IMPL - Physician Administere d ([id number]) 08-20 16:09: 59 No [id number] 1{each} 1 each, Physician Administer ed, ONCE, 1 dose, On Gwen 08/20/24 at 1615 Ying Atkinsona saundra Amoxicillin (AMOXIL) 500 MG oral Capsule 07-27 00:00: 00 08-20 00:00 :00 No TAKE ONE (1) CAPSULE(S) BY MOUTH EVERY EIGHT HOURS FOR 5 DAYS. Ying arguello Aripiprazol e 10 MG oral Tablet 30 16:05: 24 Yes 1{tbl} Take 1 tablet by mouth at bedtime. Ying arguello Rybelsus 3 MG oral Tablet 22 00:00: 00 Yes Ying arguello Trazodone HCl 50 MG oral Tablet 14 00:00: 00 Yes 50mg QD Take 1 tablet (50 mg total) by mouth nightly as needed. Ying arguello Ergocalcife rol 1.25 MG ([id number]) oral Capsule 07-06 00:00: 00 07-07 04:59 :00 No [id number] Take 1 capsule (50,000 units total) by mouth every 14 days. Ying arguello Pantoprazol e Sodium 40 MG oral Tablet Delayed Response 09 00:00: 00 Yes 40mg QD Take 1 tablet (40 mg total) by mouth daily. Ying arguello hydrOXYzine Pamoate 50 MG oral Capsule 05 00:00: 00 Yes take one (1) capsule(s) by mouth three times a day as needed for anxiety. Ying arguello NaCl 0.9% (NS) IV infusion 1,000 mL 04-11 06:45: 00 04-11 06:05 :01 No 1000mL at 999 mL/hr, Intravenou s, ONCE, 1 dose, On 04/11/24 at 0045, Routine [facility] butalbital- acetaminoph en-caff (ESGIC) 50-325-40 mg tablet 1 tablet 04-11 05:45: 00 04-11 06:06 :00 No 1{tbl} 1 tablet, Oral, ONCE, 1 dose, On 04/10/24 at 2345, ISAAK [facility] ketorolac (TORADOL) injection 30 mg 04-11 05:37: 00 04-11 06:06 :00 No 30mg 30 mg, Slow IV Push, ONCE, 1 dose, On Sat04/10/24 at 2345, ISAAK [facility] Metronidazo le (Flagyl) 500 MG oral Tablet 2023-03 2-05 00:00: 00 Yes [id number] 500mg Q.5D Take 1 tablet (500 mg total) by mouth 2 times daily. Ying arguello azelastine 137 mcg (0.1 %) nasal spray 12-05 00:00: 00 Yes [id number] 1{spray } Use 1 [place] in each nostril in the morning and 1 [place] in the evening. Use in each nostril as directed [facility] bromphenira mine-pseudo ephedrine-D M (BROMFED DM) 2-30-10 mg/5 mL syrup 12-05 00:00: 00 Yes [id number] 10mL Take 10 mL by mouth 4 (four) times daily as needed for Congestion /Allergies , Cough or Cold symptoms. [facility] fluticasone propionate 50 mcg/actuati on nasal spray 12-05 00:00: 00 Yes [id number] 1{spray } Use 1 [place] in each nostril in the morning. [facility] methylPREDN ISolone (MEDROL, KRISTA,) 4 mg tablets 12-05 00:00: 00 Yes [id number] Take by mouth SEE-INSTRU CTIONS. follow package directions [facility] bromphenira mine-pseudo ephedrine-D M (BROMFED DM) 2-30-10 mg/5 mL syrup 12-02 00:00: 00 Yes [id number] 10mL Take 10 mL by mouth 4 (four) times daily as needed for Congestion /Allergies , Cough or Cold symptoms. [facility] azelastine 137 mcg (0.1 %) nasal spray 12-02 00:00: 00 Yes [id number] 1{spray } Use 1 [place] in each nostril in the morning and 1 [place] in the evening. Use in each nostril as directed [facility] fluticasone propionate 50 mcg/actuati on nasal spray 12-02 00:00: 00 Yes [id number] 1{spray } Use 1 [place] in each nostril in the morning. [facility] methylPREDN ISolone (MEDROL, KRISTA,) 4 mg tablets 12-02 00:00: 00 Yes [id number] Take by mouth SEE-INSTRU CTIONS. follow package directions [facility] metroNIDAZO LE 500 mg tablet 10-04 00:00: 00 10-05 04:59 :00 No [id number] 2000mg Take 4 tablets by mouth once now for 1 dose. [facility] copper (PARAGARD T 380A) IUD 1 Intra Uterine Device 04-30 17:45: 00 04-30 17:01 :00 No [id number] 1{IUD} [facility] amoxicillin -clavulanat e (AUGMENTIN) 875-125 mg per tablet 2021-03 00:00: 00 02-01 05:59 :00 No [id number] 1{tbl} Take 1 tablet by mouth in the morning and 1 tablet in the evening. Do all this for 7 days. [facility] phenazopyri dine 100 mg tablet 2021-03 00:00: 00 01-27 04:59 :00 No [id number] 200mg Take 2 tablets by mouth in the morning and 2 tablets at noon and 2 tablets in the evening. Do all this for 2 days. [facility] levonorgest rel-ethinyl estradiol (SRONYX) 0.1-20 mg-mcg per tablet 12-06 00:00: 00 10-02 00:00 :00 No [id number] 1{tbl} Take 1 tablet by mouth in the morning. [facility] ondansetron 4 mg disintegrat ing tablet 07-03 00:00: 00 10-02 00:00 :00 No [id number] 4mg Take 1 tablet by mouth every 8 (eight) hours as needed for Nausea and Vomiting (N/V). [facility] norethindro ne 0.35 mg tablet 330 00:00: 00 10-02 00:00 :00 No [id number] 1{tbl} Take 1 tablet by mouth daily. [facility] Immunizations Ordered Immunization Name Filled Immunization Name Date Status Comments Source TD, NOS 2023-01-18 00:00:00 Completed [facility] SARS-COV-2 COVID-19 MAURICIO/J&J VACCINE 2023-01-18 00:00:00 Completed [facility] TDAP 2023-01-18 00:00:00 Completed [facility] HPV 2023-01-18 00:00:00 Completed [facility] HPV9 2023-01-18 00:00:00 Completed [facility] DTaP, Unspecified Formulation 2023-01-18 00:00:00 Completed [facility] DPT/HIB 2023-01-18 00:00:00 Completed [facility] HEPATITIS A 2023-01-18 00:00:00 Completed [facility] Hep B, Unspecified Formulation 2023-01-18 00:00:00 Completed [facility] Meningococcal Polysaccharide (groups A, C, Y and W-135) conjugate vaccine (MCV4P) 2023-01-18 00:00:00 Completed [facility] MMR 2023-01-18 00:00:00 Completed [facility] IPV 2023-01-18 00:00:00 Completed [facility] Poliovirus, Live, Oral, Trivalent 2023-01-18 00:00:00 Completed [facility] TD, NOS 2021-07-03 00:00:00 Completed [facility] SARS-COV-2 COVID-19 MAURICIO/J&J VACCINE 2021-07-03 00:00:00 Completed [facility] TDAP 2021-07-03 00:00:00 Completed [facility] HPV 2021-07-03 00:00:00 Completed [facility] HPV9 2021-07-03 00:00:00 Completed [facility] DTaP, Unspecified Formulation 2021-07-03 00:00:00 Completed [facility] DPT/HIB 2021-07-03 00:00:00 Completed [facility] HEPATITIS A 2021-07-03 00:00:00 Completed [facility] Hep B, Unspecified Formulation 2021-07-03 00:00:00 Completed [facility] Meningococcal Polysaccharide (groups A, C, Y and W-135) conjugate vaccine (MCV4P) 2021-07-03 00:00:00 Completed [facility] MMR 2021-07-03 00:00:00 Completed [facility] IPV 2021-07-03 00:00:00 Completed [facility] Poliovirus, Live, Oral, Trivalent 2021-07-03 00:00:00 Completed [facility] TD, NOS 2021-05-29 00:00:00 Completed [facility] SARS-COV-2 COVID-19 MAURICIO/J&J VACCINE 2021-05-29 00:00:00 Completed [facility] TDAP 2021-05-29 00:00:00 Completed [facility] HPV 2021-05-29 00:00:00 Completed [facility] HPV9 2021-05-29 00:00:00 Completed [facility] DTaP, Unspecified Formulation 2021-05-29 00:00:00 Completed [facility] DPT/HIB 2021-05-29 00:00:00 Completed [facility] HEPATITIS A 2021-05-29 00:00:00 Completed [facility] Hep B, Unspecified Formulation 2021-05-29 00:00:00 Completed [facility] Meningococcal Polysaccharide (groups A, C, Y and W-135) conjugate vaccine (MCV4P) 2021-05-29 00:00:00 Completed [facility] MMR 2021-05-29 00:00:00 Completed [facility] IPV 2021-05-29 00:00:00 Completed [facility] Poliovirus, Live, Oral, Trivalent 2021-05-29 00:00:00 Completed [facility] HPV9 2021-05-17 00:00:00 Completed [facility] HPV9 2021-05-17 00:00:00 Completed [facility] HPV9 2021-05-17 00:00:00 Completed [facility] HPV9 2021-05-17 00:00:00 Completed [facility] HPV9 2021-05-17 00:00:00 Completed [facility] HPV9 2021-05-17 00:00:00 Completed [facility] HPV9 2021-05-17 00:00:00 Completed [facility] HPV9 2021-05-17 00:00:00 Completed [facility] HPV9 2021-05-17 00:00:00 Completed [facility] HPV9 2021-05-17 00:00:00 Completed [facility] HPV9 2021-05-17 00:00:00 Completed [facility] HPV9 2021-05-17 00:00:00 Completed [facility] HPV9 2021-05-17 00:00:00 Completed [facility] HPV9 2021-05-17 00:00:00 Completed [facility] HPV9 2021-05-17 00:00:00 Completed [facility] HPV9 2021-05-17 00:00:00 Completed [facility] HPV9 2021-05-17 00:00:00 Completed [facility] HPV9 2021-05-17 00:00:00 Completed [facility] HPV9 2021-05-17 00:00:00 Completed [facility] HPV9 2021-05-17 00:00:00 Completed [facility] HPV9 2021-05-17 00:00:00 Completed [facility] TD, NOS 2021-03-15 00:00:00 Completed [facility] SARS-COV-2 COVID-19 MAURICIO/J&J VACCINE 2021-03-15 00:00:00 Completed [facility] TDAP 2021-03-15 00:00:00 Completed [facility] HPV 2021-03-15 00:00:00 Completed [facility] DTaP, Unspecified Formulation 2021-03-15 00:00:00 Completed [facility] DPT/HIB 2021-03-15 00:00:00 Completed [facility] HEPATITIS A 2021-03-15 00:00:00 Completed [facility] Hep B, Unspecified Formulation 2021-03-15 00:00:00 Completed [facility] Meningococcal Polysaccharide (groups A, C, Y and W-135) conjugate vaccine (MCV4P) 2021-03-15 00:00:00 Completed [facility] MMR 2021-03-15 00:00:00 Completed [facility] IPV 2021-03-15 00:00:00 Completed [facility] Poliovirus, Live, Oral, Trivalent 2021-03-15 00:00:00 Completed [facility] TDAP 2021-02-22 00:00:00 Completed [facility] TDAP 2021-02-22 00:00:00 Completed [facility] TDAP 2021-02-22 00:00:00 Completed [facility] TDAP 2021-02-22 00:00:00 Completed [facility] TDAP 2021-02-22 00:00:00 Completed [facility] TDAP 2021-02-22 00:00:00 Completed [facility] TDAP 2021-02-22 00:00:00 Completed [facility] TDAP 2021-02-22 00:00:00 Completed [facility] TDAP 2021-02-22 00:00:00 Completed [facility] TDAP 2021-02-22 00:00:00 Completed [facility] TDAP 2021-02-22 00:00:00 Completed [facility] TDAP 2021-02-22 00:00:00 Completed [facility] TDAP 2021-02-22 00:00:00 Completed [facility] TDAP 2021-02-22 00:00:00 Completed [facility] TDAP 2021-02-22 00:00:00 Completed [facility] TDAP 2021-02-22 00:00:00 Completed [facility] TDAP 2021-02-22 00:00:00 Completed [facility] TDAP 2021-02-22 00:00:00 Completed [facility] TDAP 2021-02-22 00:00:00 Completed [facility] TDAP 2021-02-22 00:00:00 Completed [facility] TDAP 2021-02-22 00:00:00 Completed [facility] TD, NOS 2020-10-27 00:00:00 Completed [facility] SARS-COV-2 COVID-19 MAURICIO/J&J VACCINE 2020-10-27 00:00:00 Completed [facility] HPV 2020-10-27 00:00:00 Completed [facility] DTaP, Unspecified Formulation 2020-10-27 00:00:00 Completed [facility] DPT/HIB 2020-10-27 00:00:00 Completed [facility] HEPATITIS A 2020-10-27 00:00:00 Completed [facility] Hep B, Unspecified Formulation 2020-10-27 00:00:00 Completed [facility] Meningococcal Polysaccharide (groups A, C, Y and W-135) conjugate vaccine (MCV4P) 2020-10-27 00:00:00 Completed [facility] MMR 2020-10-27 00:00:00 Completed [facility] IPV 2020-10-27 00:00:00 Completed [facility] Poliovirus, Live, Oral, Trivalent 2020-10-27 00:00:00 Completed [facility] TDAP 2020-10-27 00:00:00 Completed [facility] SARS-COV-2 COVID-19 MAURICIO/J&J VACCINE 2020-07-26 00:00:00 Completed [facility] SARS-COV-2 COVID-19 MAURICIO/J&J VACCINE 2020-07-26 00:00:00 Completed [facility] SARS-COV-2 COVID-19 MAURICIO/J&J VACCINE 2020-07-26 00:00:00 Completed [facility] SARS-COV-2 COVID-19 MAURICIO/J&J VACCINE 2020-07-26 00:00:00 Completed [facility] SARS-COV-2 COVID-19 MAURICIO/J&J VACCINE 2020-07-26 00:00:00 Completed [facility] SARS-COV-2 COVID-19 MAURICIO/J&J VACCINE 2020-07-26 00:00:00 Completed [facility] SARS-COV-2 COVID-19 MAURICIO/J&J VACCINE 2020-07-26 00:00:00 Completed [facility] SARS-COV-2 COVID-19 MAURICIO/J&J VACCINE 2020-07-26 00:00:00 Completed [facility] SARS-COV-2 COVID-19 MAURICIO/J&J VACCINE 2020-07-26 00:00:00 Completed [facility] SARS-COV-2 COVID-19 MAURICIO/J&J VACCINE 2020-07-26 00:00:00 Completed [facility] SARS-COV-2 COVID-19 MAURICIO/J&J VACCINE 2020-07-26 00:00:00 Completed [facility] SARS-COV-2 COVID-19 MAURICIO/J&J VACCINE 2020-07-26 00:00:00 Completed [facility] SARS-COV-2 COVID-19 MAURICIO/J&J VACCINE 2020-07-26 00:00:00 Completed [facility] SARS-COV-2 COVID-19 MAURICIO/J&J VACCINE 2020-07-26 00:00:00 Completed [facility] SARS-COV-2 COVID-19 MAURICIO/J&J VACCINE 2020-07-26 00:00:00 Completed [facility] SARS-COV-2 COVID-19 MAURICIO/J&J VACCINE 2020-07-26 00:00:00 Completed [facility] SARS-COV-2 COVID-19 MAURICIO/J&J VACCINE 2020-07-26 00:00:00 Completed [facility] SARS-COV-2 COVID-19 MAURICIO/J&J VACCINE 2020-07-26 00:00:00 Completed [facility] SARS-COV-2 COVID-19 MAURICIO/J&J VACCINE 2020-07-26 00:00:00 Completed [facility] SARS-COV-2 COVID-19 MAURICIO/J&J VACCINE 2020-07-26 00:00:00 Completed [facility] SARS-COV-2 COVID-19 MAURICIO/J&J VACCINE 2020-07-26 00:00:00 Completed [facility] HPV 2013-11-11 00:00:00 Completed [facility] HPV 2013-11-11 00:00:00 Completed [facility] HPV 2013-11-11 00:00:00 Completed [facility] HPV 2013-11-11 00:00:00 Completed [facility] HPV 2013-11-11 00:00:00 Completed [facility] HPV 2013-11-11 00:00:00 Completed [facility] HPV 2013-11-11 00:00:00 Completed [facility] HPV 2013-11-11 00:00:00 Completed [facility] HPV 2013-11-11 00:00:00 Completed [facility] HPV 2013-11-11 00:00:00 Completed [facility] HPV 2013-11-11 00:00:00 Completed [facility] HPV 2013-11-11 00:00:00 Completed [facility] HPV 2013-11-11 00:00:00 Completed [facility] HPV 2013-11-11 00:00:00 Completed [facility] HPV 2013-11-11 00:00:00 Completed [facility] HPV 2013-11-11 00:00:00 Completed [facility] HPV 2013-11-11 00:00:00 Completed [facility] HPV 2013-11-11 00:00:00 Completed [facility] HPV 2013-11-11 00:00:00 Completed [facility] HPV 2013-11-11 00:00:00 Completed [facility] HPV 2013-11-11 00:00:00 Completed HPV 2013-09-11 00:00:00 Completed [facility] HPV 2013-09-11 00:00:00 Completed [facility] HPV 2013-09-11 00:00:00 Completed [facility] HPV 2013-09-11 00:00:00 Completed [facility] HPV 2013-09-11 00:00:00 Completed [facility] HPV 2013-09-11 00:00:00 Completed [facility] HPV 2013-09-11 00:00:00 Completed [facility] HPV 2013-09-11 00:00:00 Completed [facility] HPV 2013-09-11 00:00:00 Completed [facility] HPV 2013-09-11 00:00:00 Completed [facility] HPV 2013-09-11 00:00:00 Completed [facility] HPV 2013-09-11 00:00:00 Completed [facility] HPV 2013-09-11 00:00:00 Completed [facility] HPV 2013-09-11 00:00:00 Completed [facility] HPV 2013-09-11 00:00:00 Completed [facility] HPV 2013-09-11 00:00:00 Completed [facility] HPV 2013-09-11 00:00:00 Completed [facility] HPV 2013-09-11 00:00:00 Completed [facility] HPV 2013-09-11 00:00:00 Completed [facility] HPV 2013-09-11 00:00:00 Completed [facility] HPV 2013-09-11 00:00:00 Completed [facility] HPV 2013-05-10 00:00:00 Completed [facility] HPV 2013-05-10 00:00:00 Completed [facility] HPV 2013-05-10 00:00:00 Completed [facility] HPV 2013-05-10 00:00:00 Completed [facility] HPV 2013-05-10 00:00:00 Completed [facility] HPV 2013-05-10 00:00:00 Completed [facility] HPV 2013-05-10 00:00:00 Completed [facility] HPV 2013-05-10 00:00:00 Completed [facility] HPV 2013-05-10 00:00:00 Completed [facility] HPV 2013-05-10 00:00:00 Completed [facility] HPV 2013-05-10 00:00:00 Completed [facility] HPV 2013-05-10 00:00:00 Completed [facility] HPV 2013-05-10 00:00:00 Completed [facility] HPV 2013-05-10 00:00:00 Completed [facility] HPV 2013-05-10 00:00:00 Completed [facility] HPV 2013-05-10 00:00:00 Completed [facility] HPV 2013-05-10 00:00:00 Completed [facility] HPV 2013-05-10 00:00:00 Completed [facility] HPV 2013-05-10 00:00:00 Completed [facility] HPV 2013-05-10 00:00:00 Completed [facility] HPV 2013-05-10 00:00:00 Completed Meningococcal Polysaccharide (groups A, C, Y and W-135) conjugate vaccine (MCV4P) 2012-10-16 00:00:00 Completed [facility] Meningococcal Polysaccharide (groups A, C, Y and W-135) conjugate vaccine (MCV4P) 2012-10-16 00:00:00 Completed [facility] Meningococcal Polysaccharide (groups A, C, Y and W-135) conjugate vaccine (MCV4P) 2012-10-16 00:00:00 Completed [facility] Meningococcal Polysaccharide (groups A, C, Y and W-135) conjugate vaccine (MCV4P) 2012-10-16 00:00:00 Completed [facility] Meningococcal Polysaccharide (groups A, C, Y and W-135) conjugate vaccine (MCV4P) 2012-10-16 00:00:00 Completed Td 2010-10-28 00:00:00 Completed [facility] Td 2010-10-28 00:00:00 Completed [facility] Td 2010-10-28 00:00:00 Completed [facility] Td 2010-10-28 00:00:00 Completed [facility] Td 2010-10-28 00:00:00 Completed [facility] Td 2010-10-28 00:00:00 Completed [facility] Td 2010-10-28 00:00:00 Completed [facility] Td 2010-10-28 00:00:00 Completed [facility] Td 2010-10-28 00:00:00 Completed [facility] Td 2010-10-28 00:00:00 Completed [facility] Td 2010-10-28 00:00:00 Completed [facility] TD, NOS 2010-10-28 00:00:00 Completed [facility] TD, NOS 2010-10-28 00:00:00 Completed [facility] TD, NOS 2010-10-28 00:00:00 Completed [facility] TD, NOS 2010-10-28 00:00:00 Completed [facility] TD, NOS 2010-10-28 00:00:00 Completed [facility] TD, NOS 2010-10-28 00:00:00 Completed [facility] TD, NOS 2010-10-28 00:00:00 Completed [facility] TD, NOS 2010-10-28 00:00:00 Completed [facility] TD, NOS 2010-10-28 00:00:00 Completed [facility] TD, NOS 2010-10-28 00:00:00 Completed [facility] HEPATITIS A 2009-09-16 00:00:00 Completed [facility] HEPATITIS A 2009-09-16 00:00:00 Completed [facility] HEPATITIS A 2009-09-16 00:00:00 Completed [facility] HEPATITIS A 2009-09-16 00:00:00 Completed [facility] HEPATITIS A 2009-09-16 00:00:00 Completed TDAP 2008-07-28 00:00:00 Completed [facility] HEPATITIS A 2008-07-28 00:00:00 Completed [facility] Meningococcal Polysaccharide (groups A, C, Y and W-135) conjugate vaccine (MCV4P) 2008-07-28 00:00:00 Completed [facility] MMR 2008-07-28 00:00:00 Completed [facility] TDAP 2008-07-28 00:00:00 Completed [facility] HEPATITIS A 2008-07-28 00:00:00 Completed [facility] Meningococcal Polysaccharide (groups A, C, Y and W-135) conjugate vaccine (MCV4P) 2008-07-28 00:00:00 Completed [facility] MMR 2008-07-28 00:00:00 Completed [facility] TDAP 2008-07-28 00:00:00 Completed [facility] HEPATITIS A 2008-07-28 00:00:00 Completed Meningococcal Polysaccharide (groups A, C, Y and W-135) conjugate vaccine (MCV4P) 2008-07-28 00:00:00 Completed MMR 2008-07-28 00:00:00 Completed TDAP 2008-07-28 00:00:00 Completed HEPATITIS A 2008-07-28 00:00:00 Completed [facility] Meningococcal Polysaccharide (groups A, C, Y and W-135) conjugate vaccine (MCV4P) 2008-07-28 00:00:00 Completed [facility] MMR 2008-07-28 00:00:00 Completed [facility] TDAP 2008-07-28 00:00:00 Completed [facility] HEPATITIS A 2008-07-28 00:00:00 Completed [facility] Meningococcal Polysaccharide (groups A, C, Y and W-135) conjugate vaccine (MCV4P) 2008-07-28 00:00:00 Completed [facility] MMR 2008-07-28 00:00:00 Completed [facility] DTaP, Unspecified Formulation 2002-04-01 00:00:00 Completed [facility] MMR 2002-04-01 00:00:00 Completed [facility] IPV 2002-04-01 00:00:00 Completed [facility] DTaP, Unspecified Formulation 2002-04-01 00:00:00 Completed [facility] MMR 2002-04-01 00:00:00 Completed [facility] IPV 2002-04-01 00:00:00 Completed [facility] DTaP, Unspecified Formulation 2002-04-01 00:00:00 Completed [facility] MMR 2002-04-01 00:00:00 Completed [facility] IPV 2002-04-01 00:00:00 Completed [facility] DTaP, Unspecified Formulation 2002-04-01 00:00:00 Completed [facility] MMR 2002-04-01 00:00:00 Completed [facility] IPV 2002-04-01 00:00:00 Completed [facility] DTaP, Unspecified Formulation 2002-04-01 00:00:00 Completed MMR 2002-04-01 00:00:00 Completed IPV 2002-04-01 00:00:00 Completed DPT/HIB 1996 00:00:00 Completed [facility] Hep B, Unspecified Formulation 1996 00:00:00 Completed [facility] Poliovirus, Live, Oral, Trivalent 1996 00:00:00 Completed [facility] DPT/HIB 1996 00:00:00 Completed [facility] Hep B, Unspecified Formulation 1996 00:00:00 Completed [facility] Poliovirus, Live, Oral, Trivalent 1996 00:00:00 Completed [facility] DPT/HIB 1996 00:00:00 Completed [facility] Hep B, Unspecified Formulation 1996 00:00:00 Completed [facility] Poliovirus, Live, Oral, Trivalent 1996 00:00:00 Completed [facility] DPT/HIB 1996 00:00:00 Completed [facility] Hep B, Unspecified Formulation 1996 00:00:00 Completed [facility] Poliovirus, Live, Oral, Trivalent 1996 00:00:00 Completed [facility] DPT/HIB 1996 00:00:00 Completed Hep B, Unspecified Formulation 1996 00:00:00 Completed Poliovirus, Live, Oral, Trivalent 1996 00:00:00 Completed Hep B, Unspecified Formulation 1996 00:00:00 Completed [facility] Hep B, Unspecified Formulation 1996 00:00:00 Completed [facility] Hep B, Unspecified Formulation 1996 00:00:00 Completed [facility] Hep B, Unspecified Formulation 1996 00:00:00 Completed [facility] Hep B, Unspecified Formulation [...] OPV- Oral Polio Vaccine Unknown Completed Ying Zuniga External Polio Vaccine Unknown Completed Ying Zuniga External DTaP Unspecified Unknown Completed Jl Queen - External Vital Signs Vital Name Observation Time Observation Value Comments S ource Systolic blood pressure 2024-09-11 15:15:00 104 mm[Hg] Ying Seybold - External Diastolic blood pressure 2024-09-11 15:15:00 62 mm[Hg] Ying Seybold - External Heart rate 2024-09-11 15:15:00 84 /min Ying Seybold - External Body temperature 2024-09-11 15:15:00 36.67 Emmanuelle Ying Seybold - External Respiratory rate 2024-09-11 15:15:00 15 /min Ying Seybold - External Body height 2024-09-11 15:15:00 165.1 cm Ying Seybold - External Body weight 2024-09-11 15:15:00 125.193 kg [...] Respiratory rate 2024-07-22 21:08:00 16 /min Ying Coyleybold - External Body height 2024-07-22 21:08:00 165.1 cm Ying Queen - External Body weight 2024-07-22 21:08:00 131.997 kg Ying Seybold - External BMI 2024-07-22 21:08:00 48.42 kg/m2 Ying Seybold - External Body height 2024-06-03 20:36:00 165.1 cm Ying Seybold - External Body weight 2024-06-03 20:36:00 130.636 kg Ying Seybold - External BMI 2024-06-03 20:36:00 47.93 kg/m2 Ying Coyleybold - External Systolic blood pressure 2024-04-11 07:00:00 140 mm[Hg] [facility] Diastolic blood pressure 2024-04-11 07:00:00 80 mm[Hg] [facility] Heart rate 2024-04-11 07:00:00 90 /min [facility] Body temperature 2024-04-11 07:00:00 37 Emmanuelle [facility] Oxygen saturation in Arterial blood by Pulse oximetry 2024-04-11 07:00:00 97 /min [facility] Respiratory rate 2024-04-11 06:06:00 18 /min [facility] Body height 2024-04-11 04:36:00 160 cm [facility] Body weight 2024-04-11 04:36:00 124.739 kg [facility] BMI 2024-04-11 04:36:00 48.71 kg/m2 [facility] Systolic blood pressure 2024-02-24 20:39:00 118 mm[Hg] Ying Seybold - External Diastolic blood pressure 2024-02-24 20:39:00 66 mm[Hg] Ying Seybold - External Heart rate 2024-02-24 20:39:00 80 /min Ying Seybold - External Body temperature 2024-02-24 20:39:00 36.94 Emmanuelle Ying Coyleybold - External Respiratory rate 2024-02-24 20:39:00 16 /min Ying Seybold - External Body height 2024-02-24 20:39:00 165.1 cm Ying Queen - External Body weight 2024-02-24 20:39:00 128.459 kg Ying Queen - External BMI 2024-02-24 20:39:00 47.13 kg/m2 Ying Queen - External Systolic blood pressure 2022-12-03 00:15:00 118 mm[Hg] [facility] Diastolic blood pressure 2022-12-03 00:15:00 79 mm[Hg] [facility] Heart rate 2022-12-03 00:15:00 99 /min [facility] Body temperature 2022-12-03 00:15:00 37.44 Emmanuelle [facility] Respiratory rate 2022-12-03 00:15:00 15 /min [facility] Body height 2022-12-03 00:15:00 165.1 cm [facility] Body weight 2022-12-03 00:15:00 138.256 kg [facility] BMI 2022-12-03 00:15:00 50.72 kg/m2 [facility] Oxygen saturation in Arterial blood by Pulse oximetry 2022-12-03 00:15:00 98 /min [facility] Systolic blood pressure 2022-10-02 18:30:00 136 mm[Hg] [facility] Diastolic blood pressure 2022-10-02 18:30:00 75 mm[Hg] [facility] Heart rate 2022-10-02 18:30:00 80 /min [facility] Body temperature 2022-10-02 18:30:00 36.83 Emmanuelle [facility] Respiratory rate 2022-10-02 18:30:00 18 /min [facility] Body height 2022-10-02 18:30:00 162.6 cm [facility] Body weight 2022-10-02 18:30:00 132.904 kg [facility] BMI 2022-10-02 18:30:00 50.29 kg/m2 [facility] Systolic blood pressure 2022-04-30 16:31:00 133 mm[Hg] [facility] Diastolic blood pressure 2022-04-30 16:31:00 84 mm[Hg] [facility] Heart rate 2022-04-30 16:31:00 76 /min [facility] Body temperature 2022-04-30 16:31:00 35.83 Emmanuelle [facility] Respiratory rate 2022-04-30 16:31:00 18 /min [facility] Body height 2022-04-30 16:31:00 162.6 cm [facility] Body weight 2022-04-30 16:31:00 131.815 kg [facility] BMI 2022-04-30 16:31:00 49.88 kg/m2 [facility] Systolic blood pressure 2022-04-19 15:39:00 119 mm[Hg] [facility] Diastolic blood pressure 2022-04-19 15:39:00 76 mm[Hg] [facility] Heart rate 2022-04-19 15:39:00 81 /min [facility] Body temperature 2022-04-19 15:39:00 36.61 Emmanuelle [facility] Respiratory rate 2022-04-19 15:39:00 18 /min [facility] Body height 2022-04-19 15:39:00 162.6 cm [facility] Body weight 2022-04-19 15:39:00 131.044 kg [facility] BMI 2022-04-19 15:39:00 49.59 kg/m2 [facility] Systolic blood pressure 2022-03-03 15:17:00 125 mm[Hg] [facility] Diastolic blood pressure 2022-03-03 15:17:00 87 mm[Hg] [facility] Heart rate 2022-03-03 15:17:00 74 /min [facility] Body temperature 2022-03-03 15:17:00 36.83 Emmanuelle [facility] Respiratory rate 2022-03-03 15:17:00 18 /min [facility] Body height 2022-03-03 15:17:00 162.6 cm [facility] Body weight 2022-03-03 15:17:00 113.399 kg [facility] BMI 2022-03-03 15:17:00 42.91 kg/m2 [facility] Oxygen saturation in Arterial blood by Pulse oximetry 2022-03-03 15:17:00 99 /min [facility] Systolic blood pressure 2022-02-14 20:28:00 138 mm[Hg] [facility] Diastolic blood pressure 2022-02-14 20:28:00 85 mm[Hg] [facility] Heart rate 2022-02-14 20:28:00 66 /min [facility] Body temperature 2022-02-14 20:28:00 36.33 Emmanuelle [facility] Respiratory rate 2022-02-14 20:28:00 20 /min [facility] Body height 2022-02-14 20:28:00 162.6 cm [facility] Body weight 2022-02-14 20:28:00 124.059 kg [facility] BMI 2022-02-14 20:28:00 46.95 kg/m2 [facility] Systolic blood pressure 2022-01-24 22:13:00 144 mm[Hg] Had to try 3x before getting a reading [facility] Diastolic blood pressure 2022-01-24 22:13:00 98 mm[Hg] Had to try 3x before getting a reading [facility] Heart rate 2022-01-24 22:13:00 97 /min [facility] Body temperature 2022-01-24 22:13:00 36.89 Emmanuelle [facility] Respiratory rate 2022-01-24 22:13:00 18 /min [facility] Body height 2022-01-24 22:13:00 162.6 cm [facility] Body weight 2022-01-24 22:13:00 125.919 kg [facility] BMI 2022-01-24 22:13:00 47.65 kg/m2 [facility] Oxygen saturation in Arterial blood by Pulse oximetry 2022-01-24 22:13:00 98 /min [facility] Systolic blood pressure 2021-12-06 13:30:00 124 mm[Hg] [facility] Diastolic blood pressure 2021-12-06 13:30:00 54 mm[Hg] [facility] Heart rate 2021-12-06 13:30:00 72 /min [facility] Body temperature 2021-12-06 13:30:00 36.28 Emmanuelle [facility] Respiratory rate 2021-12-06 13:30:00 18 /min [facility] Body height 2021-12-06 13:30:00 165.1 cm [facility] Body weight 2021-12-06 13:30:00 130.296 kg [facility] BMI 2021-12-06 13:30:00 47.80 kg/m2 [facility] Procedures Procedure Date / Time Performed Performing Clinician Source COMP. METABOLIC PANEL (75383) 2024-04-11 06:05:00 Carmine Monroe [facility] CBC WITH DIFF 2024-04-11 06:05:00 Carmine [facility] INFLUENZA A/B RSV COVID NAAT 2024-04-11 06:05:00 Carmine Monroe [facility] POCT TEST 2024-04-11 05:12:00 Julia Monroe [facility] POCT SARS-COV-2 ANTIGEN (BINAX NOW) 2022-12-03 00:31:00 Jessika Manrique [facility] CBC WITH DIFF 2022-10-02 19:30:00 Jennifer Puri [facility] GLYCOSYLATED HEMOGLOBIN (A1C) 2022-10-02 19:30:00 Jennifer Puri [facility] HCV ANTIBODY 2022-10-02 19:30:00 Jennifer Puri [facility] GC & CHLAMYDIA AMPLIFIED ASSAY 2022-10-02 19:30:00 Jennifer Puri [facility] HIV 1/2 AG-AB WITH REFLEX 2022-10-02 19:30:00 Jennifer Puri [facility] TRICHOMONAS AMPLIFIED ASSAY 2022-10-02 19:30:00 Jennifer Puri [facility] PAP SMEAR-LIQUID BASED-CP 2022-10-02 19:30:00 Jennifer Puri [facility] SYPHILIS IGG/IGM 2022-10-02 19:30:00 Jennifer Puri [facility] PATIENT FINANCIAL POLICY 2022-10-02 18:08:46 Doctor Unassigned, [place] [facility] POCT TEST 2022-04-30 16:35:00 Jonel Adams [facility] DISCLOSURE AND CONSENT, MEDICAL AND SURGICAL PROCEDURES 2022-04-30 06:01:00 Doctor Unassigned, [place] [facility] POCT TEST 2022-04-19 15:41:00 Jonle Adams [facility] BASIC METABOLIC PANEL (NA, K, CL, CO2, GLUCOSE, BUN, CREATININE, CA) 2022-03-03 15:57:00 Tiana Antonio [facility] ETHANOL 2022-03-03 15:57:00 Tiana Antonio [facility] CBC WITH DIFF 2022-03-03 15:57:00 Tiana Antonio [facility] URINALYSIS 2022-03-03 15:57:00 Tiana Antonio [facility] URINE DRUG (IMMUNOASSAY) - COMPREHENSIVE DRUG SCREEN W/O REFLEX 2022-03-03 15:57:00 Tiana Antonio [facility] HB ECG ROUTINE & RHYTHM STRIP 2022-03-03 15:55:48 Tiana Antonio [facility] POCT TEST 2022-02-14 20:48:00 Jonel Adams [facility] ASSIGNMENT OF BENEFITS 2022-02-14 19:38:06 Docto r Unassigned, [place] [facility] POCT URINALYSIS 2022-01-24 22:31:[address] [facility] POCT TEST 2021-12-06 15:36:00 Jonel Adams [facility] Encounters Start Date/Time End Date/Time Encounter Type Admission Type Attending Clinicians Care Facility Care Department Encounter ID Source 2021-01-22 06:46:10 Emergency [facility] [id number] [facility] 2025-01-02 00:00:00 2025-01-02 09:50:00 Nurse Triage Janeen Aguilar Teresa D [facility] 1.2.840.114 350.1.13.10 4.2.7.2.686 [id number] [facility] 2024-09-11 10:50:00 2024-09-11 10:50:00 Outpatient LAB90 YING RODRIGUEZ [id number] [facility] 2024-09-11 10:15:00 2024-09-11 10:15:00 Outpatient SUSY ANDRE YING RODRIGUEZ [id number] [facility] 2024-08-21 16:00:00 2024-08-21 16:00:00 Outpatient JEB DAVIS YING RODRIGUEZ [id number] [facility] 2024-08-20 15:45:00 2024-08-20 15:45:00 Outpatient LAB45 YING RODRIGUEZ [id number] [facility] 2024-08-20 15:00:00 2024-08-20 15:00:00 Outpatient JEB DAVIS YING RODRIGUEZ [id number] [facility] 2024-08-14 15:45:00 2024-08-14 15:45:00 Outpatient JEB DAVIS YING RODRIGUEZ [id number] [facility] 2024-07-22 15:45:00 2024-07-22 15:45:00 Outpatient JEB DAVIS YING RODRIGUEZ [id number] [facility] 2024-07-13 15:45:00 2024-07-13 15:45:00 Outpatient DAVISJEB YING RODRIGUEZ [id number] [facility] 2024-06-30 14:45:00 2024-06-30 14:45:00 Outpatient OZZIE RIVERA [id number] [facility] 2024-06-23 15:30:00 2024-06-23 15:30:00 Outpatient R [facility] [id number] [facility] 2024-06-04 00:00:00 2024-06-04 00:00:00 Outpatient BRADEN GUERRIER [id number] [facility] 2024-06-03 15:30:00 2024-06-03 15:30:00 Outpatient MAQBOOL, FRANKIE YING RODRIGUEZ [id number] [facility] 2024-06-03 00:00:00 2024-06-03 00:00:00 Outpatient MD YING RAMÍREZ [id number] [facility] 2024-06-02 14:30:00 2024-06-02 14:30:00 Outpatient R KEN ESTEVAN [facility] [id number] [facility] 2024-06-02 00:00:00 2024-06-02 00:00:00 Outpatient BRADEN GUERRIER YING RODRIGUEZ [id number] [facility] 2024-04-28 23:58:00 2024-04-29 02:03:00 Emergency Emergency PRESLEY MUNOZ [facility] General Medicine [id number] [facility] 2024-04-27 08:00:00 2024-04-27 08:00:00 Outpatient TISH LOCKWOOD [id number] [facility] 2024-04-24 14:45:00 2024-04-24 14:45:00 Outpatient JEB DAVIS [id number] [facility] 2024-04-17 13:45:00 2024-04-17 13:45:00 Outpatient Divya POPEYAN [facility] [id number] [facility] 2024-04-13 08:15:00 2024-04-13 08:15:00 Outpatient JEB DAVIS [id number] [facility] 2024-04-10 22:41:00 2024-04-11 01:27:00 Emergency X CARMINE MONROE SHINTA [facility] [id number] [facility] 2024-04-10 22:41:00 2024-04-11 01:27:00 Emergency Carmine Monroe [facility] 1.2.840.114 350.1.13.10 4.2.7.2.686 [id number] [facility] 2024-03-16 15:00:00 2024-03-16 15:00:00 Outpatient MARILOU JARAMILLO YING [id number] [facility] 2024-03-12 15:00:00 2024-03-12 15:00:00 Outpatient JEB DAVIS YING [id number] [facility] 2024-02-25 10:30:00 2024-02-25 10:30:00 Outpatient MARILOU JARAMILLO YING [id number] [facility] 2024-02-24 13:45:00 2024-02-24 13:45:00 Outpatient JEB DAVIS YING YING [id number] [facility] 2023-09-18 14:00:00 2023-09-18 14:00:00 Outpatient YAN GRAHAM [facility] [id number] [facility] 2023-08-30 15:15:00 2023-08-30 15:15:00 Outpatient R ESTEVAN ADAMS [facility] [id number] [facility] 2023-08-29 10:45:00 2023-08-29 10:45:00 Outpatient YAN GRAHAM [facility] [id number] [facility] 2023-02-21 15:00:00 2023-02-21 15:00:00 Outpatient ESTEVAN ALCALA [facility] [id number] [facility] 2023-01-22 08:30:00 2023-01-22 08:30:00 Outpatient ESTEVAN ALCALA [facility] [id number] [facility] 2023-01-18 00:00:00 2023-01-18 00:00:00 Telephone Estevan Adams [facility] MATERNAL & [facility] 1.2.840.114 350.1.13.10 4.2.7.2.686 [id number] 107 [id number] [facility] 2023-01-14 14:00:00 2023-01-14 14:00:00 Outpatient R FINK-JANETT S, OMKAR FINK-JANETT S, OMKAR [facility] [id number] [facility] 2022-12-04 00:00:00 2022-12-04 00:00:00 Telephone Jessika Manrique [facility] MED[facility] OFFICE [facility] 1..840.114 350.1.13.10 4.2.7.2.686 [id number] 370 [id number] [facility] 2022-12-02 19:00:00 2022-12-02 19:35:03 Outpatient R JESSIKA MANRIQUE [facility] [id number] [facility] 2022-12-02 19:00:00 2022-12-02 19:20:00 Urgent Care Burton Jessika Unknown, Attending [facility] OFF[facility] 1..840.114 350.1.13.10 4.2.7.2.686 [id number] 370 [id number] [facility] 2022-10-04 00:00:00 2022-10-04 00:00:00 Telephone Jennifer Puri [facility] & CHILD [facility] 1..840.114 350.1.13.10 4.2.7.2.686 [id number] 107 [id number] [facility] 2022-10-02 13:30:00 2022-10-02 14:31:55 Outpatient R JENNIFER PURI [facility] [id number] [facility] 2022-10-02 13:30:00 2022-10-02 14:31:55 Office Visit Jennifer Puri [facility] & CHILD [facility] 1..840.114 350.1.13.10 4.2.7.2.686 [id number] 107 [id number] [facility] 2022-10-02 00:00:00 2022-10-02 00:00:00 Orders Only Doctor Unassigned, [place] [facility] 1.2.840.114 350.1.13.10 4.2.7.2.686 [id number] [facility] 2022-07-04 13:15:00 2022-07-04 13:15:00 Outpatient Divya RAMESHESIRIA [facility] [id number] [facility] 2022-07-04 13:15:00 2022-07-04 13:15:00 Outpatient Divya RAMESHESIRIA [facility] [id number] [facility] 2022-07-04 13:00:00 2022-07-04 13:00:00 Outpatient SIRIA MAGANA [facility] [id number] [facility] 2022-04-30 10:00:00 2022-04-30 10:30:00 Office Visit Estevan Adams [facility] & CHILD [facility] .840.114 350.1.13.10 4.2.7.2.686 [id number] 107 [id number] [facility] 2022-04-30 10:00:00 2022-04-30 10:00:00 Outpatient R ESTEVAN ADAMS [facility] [id number] [facility] 2022-04-30 00:00:00 2022-04-30 00:00:00 Orders Only Doctor Unassigned, [place] [facility] 1.840.114 350.1.13.10 4.2.7.2.686 [id number] [facility] 2022-04-19 09:30:00 2022-04-19 10:05:06 Outpatient R ESTEVAN ADAMS [facility] [id number] [facility] 2022-04-19 09:30:00 2022-04-19 10:05:06 Office Visit Estevan Adams [facility] & CHILD [facility] ..840.114 350.1.13.10 4.2.7.2.686 [id number] 107 [id number] [facility] 2022-04-19 00:00:00 2022-04-19 00:00:00 Letter (Out) Estevan Adams [facility] MATERNAL & CHILD [facility] 1.2840.114 350.1.13.10 4.2.7.2.686 [id number] 107 [id number] [facility] 2022-03-07 09:45:00 2022-03-07 09:45:00 Outpatient SIRIA MAGANA [facility] [id number] [facility] 2022-03-03 09:22:00 2022-03-03 12:44:00 Emergency TIANA LIGHT [facility] ERT [id number] [facility] 2022-03-03 09:22:00 2022-03-03 12:44:00 Emergency Tiana Antonio [facility] 1.840.114 350.1.13.10 4.2.7.2.686 [id number] [facility] 2022-02-18 00:00:00 2022-02-18 00:00:00 Refill Estevan Adams [facility] & CHILD [facility] 1.840.114 350.1.13.10 4.2.7.2.686 [id number] 107 [id number] [facility] 2022-02-14 13:30:00 2022-02-14 14:35:37 Nurse Visit Visit, Naun-Rmchp Nurse Jennifer Puri [facility] & CHILD [facility] 1.0.114 350.1.13.10 4.2.7.2.686 [id number] 107 [id number] [facility] 2022-02-14 14:30:00 2022-02-14 14:30:00 Outpatient JENNIFER BALL [facility] [id number] [facility] 2022-02-14 13:30:00 2022-02-14 13:30:00 Outpatient R JENNIFER PURI [facility] [id number] [facility] 2022-02-14 00:00:00 2022-02-14 00:00:00 Orders Only Doctor Unassigned, [place] [facility] 1.114 350.1.13.10 4.2.7.2.686 [id number] [facility] 2022-02-14 00:00:00 2022-02-14 00:00:00 Telephone Siria Anderson [facility] & CHILD [facility] 1.114 350.1.13.10 4.2.7.2.686 [id number] 107 [id number] [facility] 2022-02-06 00:00:00 2022-02-06 00:00:00 Telephone Estevan Adams [facility] & CHILD [facility] 1.114 350.1.13.10 4.2.7.2.686 [id number] 107 [id number] [facility] 2022-01-24 17:20:00 2022-01-24 17:28:54 Outpatient R JESSIKA MANRIQUE [facility] [id number] [facility] 2022-01-24 17:20:00 2022-01-24 17:28:54 Urgent Care Jessika Manrique Unknown, Attending [facility] 1.114 350.1.13.10 4.2.7.2.686 [id number] [facility] 2022-01-01 00:00:00 2022-01-01 00:00:00 Refill Estevan Adams [facility] & CHILD [facility] 1..114 350.1.13.10 4.2.7.2.686 [id number] 107 [id number] [facility] 2022-01-01 00:00:00 2022-01-01 00:00:00 Telephone Estevan Adams [facility] & CHILD [facility] 1.2.840.114 350.1.13.10 4.2.7.2.686 [id number] 107 [id number] [facility] 2021-12-29 00:00:00 2021-12-29 00:00:00 Refill Estevan Adams [facility] CHILD [facility] 1..840.114 350.1.13.10 4.2.7.2.686 [id number] [facility] 2021-12-06 08:15:00 2021-12-06 08:54:24 Office Visit Estevan Adams [facility] CHILD [facility] 1.840.114 350.1.13.10 4.2.7.2.686 [id number] 107 [id number] [facility] 2021-12-06 08:15:00 2021-12-06 08:54:24 Outpatient R KEN ESTEVAN [facility] [id number] [facility] 2021-12-06 08:15:00 2021-12-06 08:15:00 Outpatient R LALYJAVI DANIELSOLA [facility] [id number] [facility] 2021-11-22 15:15:00 2021-11-22 15:15:00 Outpatient R NICOLASESTEVAN ALAS [facility] [id number] [facility] 2021-11-21 00:00:00 2021-11-21 00:00:00 Telephone Siria Anderson [facility] CHILD [facility] 1..840.114 350.1.13.10 4.2.7.2.686 [id number] 107 [id number] [facility] 2021-11-20 00:00:00 2021-11-20 00:00:00 Telephone Siria Anderson [facility] & CHILD [facility] 1.2.840.114 350.1.13.10 4.2.7.2.686 [id number] 107 [id number] [facility] 2021-09-03 00:00:00 2021-09-03 00:00:00 Refill Siria Anderson [facility] & CHILD [facility] 1.2.840.114 350.1.13.10 4.2.7.2.686 [id number] 107 [id number] [facility] 2021-07-04 12:45:00 2021-07-04 13:31:36 Office Visit Siria Anderson [facility] 1.2.840.114 350.1.13.10 4.2.7.2.686 [id number] 107 [id number] [facility] 2021-07-04 12:45:00 2021-07-04 13:31:36 Outpatient LUDA MAGANAKALI [facility] [id number] [facility] 2021-07-04 12:45:00 2021-07-04 12:45:00 Outpatient R JUSTIN SIRIA [facility] [id number] [facility] 2021-07-04 00:00:00 2021-07-04 00:00:00 Telephone JennaMaisha [facility] 1.2.840.114 350.1.13.10 4.2.7.2.686 [id number] [facility] 2021-07-03 18:20:00 2021-07-03 18:53:48 Outpatient R JESSIKA MANRIQUE [facility] [id number] [facility] 2021-07-03 18:20:00 2021-07-03 18:53:48 Urgent Care Jessika Manrique [facility] 1..840.114 350.1.13.10 4.2.7.2.686 [id number] [facility] 2021-07-03 18:20:00 2021-07-03 18:53:48 Outpatient JESSIKA MCGUIRE [facility] [id number] [facility] 2021-07-03 09:30:00 2021-07-03 09:30:00 Outpatient EASTON RIOJAS [id number] [facility] 2021-07-03 08:15:00 2021-07-03 08:15:00 Outpatient EASTON RIOJAS [id number] [facility] 2021-07-03 00:00:00 2021-07-03 00:00:00 Patient Secure Msg Siria Anderson [facility] MATERNAL & CHILD [facility] 1..840.114 350.1.13.10 4.2.7.2.686 [id number] 107 [id number] [facility] 2021-06-21 13:00:00 2021-06-21 14:53:50 Outpatient SIRIA MAGANA [facility] [id number] [facility] 2021-06-21 13:00:00 2021-06-21 14:53:50 Office Visit Siria Anderson [facility] & CHILD [facility] ..840.114 350.1.13.10 4.2.7.2.686 [id number] 107 [id number] [facility] 2021-06-21 13:00:00 2021-06-21 14:53:50 Outpatient SIRIA MAGANA [facility] [id number] [facility] 2021-05-31 08:00:00 2021-05-31 09:04:36 Outpatient SIRIA MAGANA [facility] [id number] [facility] 2021-05-31 08:00:00 2021-05-31 09:04:36 Routine Visit Siria Anderson [facility] & CHILD [facility] 1.2.840.114 350.1.13.10 4.2.7.2.686 [id number] 107 [id number] [facility] 2021-05-29 00:00:00 2021-05-29 00:00:00 Patient Secure Msg Siria Anderson [facility] CHILD [facility] 1.2.840.114 350.1.13.10 4.2.7.2.686 [id number] 107 [id number] [facility] 2021-05-19 00:00:00 2021-05-19 00:00:00 Telephone Estevan Adams [facility] CH[facility] 1.0.114 350.1.13.10 4.2.7.2.686 [id number] 107 [id number] [facility] 2021-05-17 13:00:00 2021-05-17 13:00:00 Nurse Visit Nurse, Naun Lima Exp Cprit Obgyn Siria Anderson [facility] CH[facility] 1.2840.114 350.1.13.10 4.2.7.2.686 [id number] 107 [id number] [facility] 2021-05-17 13:00:00 2021-05-17 08:46:02 Outpatient R SIRIA ANDERSON [facility] [id number] [facility] 2021-05-17 08:00:00 2021-05-17 08:45:55 Nurse Visit Visit, Oly Nurse Siria Anderson [facility] CH[facility] 1.2840.114 350.1.13.10 4.2.7.2.686 [id number] 107 [id number] [facility] 2021-05-09 17:42:00 2021-05-12 16:52:00 Inpatient P JODEE ALMAZAN [facility] REZA [id number] [facility] 2021-05-09 17:42:00 2021-05-12 16:52:00 Hospital Encounter Jodee Almazan [facility] 1.2.840.114 350.1.13.10 4.2.7.2.686 [id number] [facility] 2021-05-10 17:00:00 2021-05-10 18:47:00 Surgery Zbigniew Fernandez [facility] 1.2.840.114 350.1.13.10 4.2.7.2.686 [id number] [facility] 2021-05-10 09:54:00 2021-05-10 18:34:00 Anesthesia Event Glen Mcgraw Axel [facility] 1.2.840.114 350.1.13.10 4.2.7.2.686 [id number] [facility] 2021-05-09 13:15:00 2021-05-09 14:00:22 Outpatient R SIRIA ANDERSON [facility] [id number] [facility] 2021-05-09 13:15:00 2021-05-09 14:00:22 Routine Visit Siria Anderson [facility] MATERNAL & CHILD [facility] 1..840.114 350.1.13.10 4.2.7.2.686 [id number] 107 [id number] [facility] 2021-05-02 15:30:00 2021-05-02 15:58:07 Outpatient R SIRIA ANDERSON [facility] [id number] [facility] 2021-05-02 15:30:00 2021-05-02 15:58:07 Routine Visit Siria Anderson [facility] CHILD [facility] 1.840.114 350.1.13.10 4.2.7.2.686 [id number] 107 [id number] [facility] 2021-05-02 00:00:00 2021-05-02 00:00:00 Abstract Siria Anderson [facility] & CHILD [facility] 1.0.114 350.1.13.10 4.2.7.2.686 [id number] 107 [id number] [facility] 2021-04-28 09:30:00 2021-04-28 10:00:00 Database Programmer Analyst Visit Ultrasound, Katelyn Whiting [facility] & CHILD [facility] 1.840.114 350.1.13.10 4.2.7.2.686 [id number] [facility] 2021-04-28 09:30:00 2021-04-28 09:30:00 Outpatient P [facility] [id number] [facility] 2021-04-28 09:30:00 2021-04-28 09:30:00 Outpatient P [facility] [id number] [facility] 2021-04-28 09:30:00 2021-04-28 09:30:00 Outpatient P KATELYN CRUZ SHANNON [facility] [id number] [facility] 2021-04-25 15:30:00 2021-04-25 16:19:38 Outpatient R SIRIA ANDERSON [facility] [id number] [facility] 2021-04-25 15:30:00 2021-04-25 16:19:38 Routine Visit Siria Anderson [facility] & CHILD [facility] 1.84.114 350.1.13.10 4.2.7.2.686 [id number] 107 [id number] [facility] 2021-04-25 15:30:00 2021-04-25 15:30:00 Outpatient R SIRIA ANDERSON [facility] [id number] [facility] 2021-04-24 15:30:00 2021-04-24 15:30:00 Outpatient P [facility] [id number] [facility] 2021-04-21 00:00:00 2021-04-21 00:00:00 Telephone Siria Anderson [facility] & CHILD [facility] ..840.114 350.1.13.10 4.2.7.2.686 [id number] 107 [id number] [facility] 2021-04-19 13:15:00 2021-04-19 13:15:00 Outpatient SIRIA MAGANA [facility] [id number] [facility] 2021-04-19 13:15:00 2021-04-19 13:15:00 Database Programmer Analyst Visit Lab, [facility] Siria Anderson [facility] COOK [facility] & CHILD [facility] ..840.114 350.1.13.10 4.2.7.2.686 [id number] 107 [id number] [facility] 2021-04-19 13:00:00 2021-04-19 13:00:00 Outpatient P [facility] [id number] [facility] 2021-04-19 00:00:00 2021-04-19 00:00:00 Telephone Siria Anderson [facility] ..840.114 [id number] [id number] 107 [id number] [facility] 2021-04-18 15:30:00 2021-04-18 16:11:31 Outpatient SIRIA MAGANA [facility] [id number] [facility] 2021-04-18 15:30:00 2021-04-18 16:11:31 Routine Visit Siria Anderson [facility] 1..840.114 [id number] [id number] 107 [id number] [facility] 2021-04-18 15:30:00 2021-04-18 16:11:31 Outpatient R SIRIA ANDERSON [facility] [id number] [facility] 2021-04-18 15:30:00 2021-04-18 15:30:00 Outpatient R SIRIA ANDERSON [facility] [id number] [facility] 2021-04-11 13:00:00 2021-04-11 14:15:13 Outpatient LUDA MAGANAKALI [facility] [id number] [facility] 2021-04-11 13:00:00 2021-04-11 14:15:13 Outpatient R LUDA ANDERSONKALI [facility] [id number] [facility] 2021-04-11 13:00:00 2021-04-11 14:15:13 Routine Visit Luda Andersonkali Stokes [facility] 1..840.114 [id number] [id number] 107 [id number] [facility] 2021-04-11 13:00:00 2021-04-11 13:00:00 Outpatient SIRIA MAGANA [facility] [id number] [facility] 2021-03-29 00:00:00 2021-03-29 00:00:00 Telephone Anette Andersonmanuel Stokes [facility] 1.2.840.114 350.1.13.10 4.2.7.2.686 [id number] 107 [id number] [facility] 2021-03-22 14:30:00 2021-03-22 14:51:40 Outpatient R ANDERSONSIRIA [facility] [id number] [facility] 2021-03-22 14:30:00 2021-03-22 14:51:40 Routine Visit [facility] 1.2.840.114 350.1.13.10 4.2.7.2.686 [id number] 107 [id number] [facility] 2021-03-22 14:30:00 2021-03-22 14:30:00 Outpatient R SIRIA ANDERSON [facility] [id number] [facility] 2021-03-22 14:00:00 2021-03-22 14:30:00 Database Programmer Analyst Visit Ultrasound, Naun-Siria Olmstead Antonio [email or web address] 1.2.840.114 350.1.13.10 4.2.7.2.686 [id number] [facility] 2021-03-22 00:00:00 2021-03-22 00:00:00 Abstract Siria Anderson [facility] 1.2.840.114 350.1.13.10 4.2.7.2.686 [id number] [facility] 2021-03-15 00:00:00 2021-03-15 00:00:00 Patient Secure Msg Siria Anderson [facility] 1.2.840.114 350.1.13.10 4.2.7.2.686 [id number] 107 [id number] [facility] 2021-03-14 00:00:00 2021-03-14 00:00:00 Telephone Siria Anderson [facility] 1.2.840.114 350.1.13.10 4.2.7.2.686 [id number] 107 [id number] [facility] 2021-03-13 00:00:00 2021-03-13 00:00:00 Aaron Dykes [facility] MATERNAL & CHILD [facility] 1.2.840.114 350.1.13.10 4.2.7.2.686 [id number] [facility] 2021-03-13 00:00:00 2021-03-13 00:00:00 Siria Lechuga [facility] 1.2.840.114 350.1.13.10 4.2.7.2.686 [id number] 107 [id number] [facility] 2021-03-10 00:00:00 2021-03-10 00:00:00 Siria Lechuga [facility] 1.2.840.114 350.1.13.10 4.2.7.2.686 [id number] 107 [id number] [facility] 2021-03-10 00:00:00 2021-03-10 00:00:00 Aaron Dykes [facility] C[facility] & CHILD [facility] 1.2.840.114 350.1.13.10 4.2.7.2.686 [id number] [facility] 2021-03-09 15:45:00 2021-03-09 16:18:23 Outpatient R SIRIA ANDERSON [facility] [id number] [facility] 2021-03-09 15:45:00 2021-03-09 16:18:23 Routine Visit Siria Anderson [facility] 1.2.840.114 350.1.13.10 4.2.7.2.686 [id number] 107 [id number] [facility] 2021-03-09 00:00:00 2021-03-09 00:00:00 Aaron Dykes [facility] MATERNAL & CHILD [facility] 1.2840.114 350.1.13.10 4.2.7.2.686 [id number] [facility] 2021-03-09 00:00:00 2021-03-09 00:00:00 Siria Lechuga [facility] 1.84.114 350.1.13.10 4.2.7.2.686 [id number] 107 [id number] [facility] 2021-03-08 15:45:00 2021-03-08 15:45:00 Outpatient SIRIA MAGANA [facility] [id number] [facility] 2021-02-22 10:00:00 2021-02-22 11:57:26 Outpatient AARON BACK [facility] [id number] [facility] 2021-02-22 09:59:09 2021-02-22 11:57:26 Routine Visit Provider, Aaron Barlow [facility] 1.84.114 350.1.13.10 4.2.7.2.686 [id number] 107 [id number] [facility] 2021-02-13 10:52:00 2021-02-13 11:22:00 Database Programmer Analyst Visit Ultrasound, Silvana Ruff [facility] 1.840.114 350.1.13.10 4.2.7.2.686 [id number] [facility] 2021-02-13 10:45:00 2021-02-13 10:45:00 Outpatient SILVANA WESLEY SANGEETA [facility] [id number] [facility] 2021-02-13 00:00:00 2021-02-13 00:00:00 Case Management Bo Rivera [facility] & CHILD [facility] 1..840.114 350.1.13.10 4.2.7.2.686 [id number] 107 [id number] [facility] 2021-02-03 00:00:00 2021-02-03 00:00:00 Telephone Aaron Alicea [facility] & CHILD [facility] 1.840.114 350.1.13.10 4.2.7.2.686 [id number] [facility] 2021-02-01 10:45:00 2021-02-01 11:09:09 Outpatient R BO RIVERA [facility] [id number] [facility] 2021-02-01 10:04:55 2021-02-01 11:09:09 Routine Visit Provider, Naun-Rmchp Temp Bo Rivera [facility] COOK [facility] MAT[facility]NAL & CHILD [facility] 1..840.114 350.1.13.10 4.2.7.2.686 [id number] 107 [id number] [facility] 2021-01-31 00:00:00 2021-01-31 00:00:00 Refill Nguyễn Adhikari [facility] 1.840.114 350.1.13.10 4.2.7.2.686 [id number] [facility] 2021-01-30 00:00:00 2021-01-30 00:00:00 Telephone Aaron Alicea [facility] MAT[facility]NAL & CHILD [facility] 1..840.114 350.1.13.10 4.2.7.2.686 [id number] 107 [id number] [facility] 2021-01-29 00:00:00 2021-01-29 00:00:00 Refill Siria Anderson [facility] 1.2840.114 350.1.13.10 4.2.7.2.686 [id number] 107 [id number] [facility] 2021-01-29 00:00:00 2021-01-29 00:00:00 Refill Onofre [facility] 1.284.114 350.1.13.10 4.2.7.2.686 [id number] 370 [id number] [facility] 2021-01-19 14:40:00 2021-01-19 15:06:44 Outpatient R IZABELA [facility] [id number] [facility] 2021-01-19 14:22:57 2021-01-19 15:06:44 [facility] 1.840.114 350.1.13.10 4.2.7.2.686 [id number] 370 [id number] [facility] 2021-01-04 00:00:00 2021-01-04 00:00:00 Telephone Siria Anderson [facility] 1..840.114 350.1.13.10 4.2.7.2.686 [id number] 107 [id number] [facility] 2021-01-03 00:00:00 2021-01-03 00:00:00 Telephone Siria Anderson [facility] 1.2840.114 350.1.13.10 4.2.7.2.686 [id number] 107 [id number] [facility] 2021-01-03 00:00:00 2021-01-03 00:00:00 Telephone Siria Anderson [facility] 1.2.84.114 350.1.13.10 4.2.7.2.686 [id number] 107 [id number] [facility] 2021-01-02 10:45:39 2021-01-02 11:10:03 Routine Visit Provider, Aaron Barlow [facility] MAT[facility] & CHILD [facility] .84.114 350.1.13.10 4.2.7.2.686 [id number] 107 [id number] [facility] 2021-01-02 10:45:00 2021-01-02 10:45:00 Outpatient R [facility] [id number] [facility] 2020-12-21 10:52:25 2020-12-21 11:26:21 Office Visit Palmira Phillips [facility] ..114 350.1.13.10 4.2.7.2.686 [id number] [facility] 2020-12-21 10:30:00 2020-12-21 10:30:00 Outpatient P [facility] [id number] [facility] 2020-12-19 08:20:30 2020-12-19 09:35:30 Database Programmer Analyst Visit Ultrasound, Gianni Virk [facility] MATER[facility] & CHILD [facility] .840.114 350.1.13.10 4.2.7.2.686 [id number] [facility] 2020-12-19 08:00:00 2020-12-19 08:00:00 Outpatient P [facility] [id number] [facility] 2020-12-19 00:00:00 2020-12-19 00:00:00 Abstract Siria Anderson [facility] C[facility] MATERNAL & CHILD [facility] .840.114 350.1.13.10 4.2.7.2.686 [id number] 107 [id number] [facility] 2020-12-07 00:00:00 2020-12-07 00:00:00 Telephone Luda Andersonkali Stokes [facility] C[facility] 1.2.840.114 350.1.13.10 4.2.7.2.686 [id number] 107 [id number] [facility] 2020-12-05 10:15:59 2020-12-05 10:54:56 Routine Visit Luda Andersonkali Stokes [facility] C[facility] 1.2.840.114 350.1.13.10 4.2.7.2.686 [id number] 107 [id number] [facility] 2020-12-05 10:15:59 2020-12-05 10:54:56 Routine Visit JustinSiria [facility] C[facility] 1.2.840.114 350.1.13.10 4.2.7.2.686 [id number] [facility] 2020-12-05 10:15:00 2020-12-05 10:15:00 Outpatient R ANDERSONSIRIA [facility] [id number] [facility] 2020-11-07 08:42:18 2020-11-07 09:41:48 Routine Visit AndersonSiria [facility] 1.2.840.114 350.1.13.10 4.2.7.2.686 [id number] [facility] 2020-11-07 08:45:00 2020-11-07 08:45:00 Outpatient R ANDERSONSIRAI [facility] [id number] [facility] 2020-11-01 00:00:00 2020-11-01 00:00:00 Telephone AndersonSiria [facility] 1.2.840.114 350.1.13.10 4.2.7.2.686 [id number] 107 [id number] [facility] 2020-10-27 00:00:00 2020-10-27 00:00:00 Patient Secure Msg Doctor Unassigned, [place] [facility] C[facility] MATERNAL CHILD [facility] 1.2.840.114 350.1.13.10 4.2.7.2.686 [id number] 107 [id number] [facility] 2020-10-27 00:00:00 2020-10-27 00:00:00 Telephone Siria Anderson [facility] 1.2840.114 350.1.13.10 4.2.7.2.686 [id number] 107 [id number] [facility] 2020-10-26 00:00:00 2020-10-26 00:00:00 Telephone Siria Anderson [facility] 1.2840.114 350.1.13.10 4.2.7.2.686 [id number] 107 [id number] [facility] 2020-10-19 13:59:38 2020-10-19 14:29:38 Database Programmer Analyst Visit Ultrasound, Cristin Jones [facility] C[facility] 1.2840.114 350.1.13.10 4.2.7.2.686 [id number] [facility] 2020-10-19 14:00:00 2020-10-19 14:00:00 Outpatient P [facility] [id number] [facility] 2020-10-19 00:00:00 2020-10-19 00:00:00 Abstract Siria Anderson [facility] 1.2.840.114 350.1.13.10 4.2.7.2.686 [id number] 107 [id number] [facility] 2020-10-10 08:57:06 2020-10-10 09:57:15 Initial Visit Anderson Anettemanuel Stokes [facility] COOK [facility] MATERNAL & CHILD [facility] 1.2840.114 350.1.13.10 4.2.7.2.686 [id number] 107 [id number] [facility] 2020-10-10 08:30:00 2020-10-10 08:30:00 Outpatient R [facility] [id number] [facility] 2020-10-10 00:00:00 2020-10-10 00:00:00 Orders Only Doctor Unassigned, [place] [facility] 1.840.114 350.1.13.10 4.2.7.2.686 [id number] [facility] 2020-06-24 16:00:00 2020-06-24 16:00:00 Outpatient R JULISSA MICHELE [facility] [id number] [facility] 2020-06-24 11:27:53 2020-06-24 11:49:24 Office Visit Julissa Michele [facility] 1.84.114 350.1.13.10 4.2.7.2.686 [id number] [facility] 2020-06-24 11:00:00 2020-06-24 11:00:00 Outpatient R JULISSA MICHELE [facility] [id number] [facility] 2020-06-14 00:00:00 2020-06-14 00:00:00 Patient Outreach Reji Cruz [facility] 1..114 350.1.13.10 4.2.7.2.686 [id number] [facility] 2020-06-08 19:38:00 2020-06-09 12:50:00 Emergency Ann, Emma [place], Zoe Michele, Julissa Arguello [facility] ..114 350.1.13.10 4.2.7.2.686 [id number] [facility] 2020-06-08 18:59:31 2020-06-08 19:19:31 Urgent Care Provider, [facility] Saadia Lovett [facility] 1.114 350.1.13.10 4.2.7.2.686 [id number] [facility] 2020-06-08 18:40:00 2020-06-08 18:40:00 Outpatient SAADIA RAZO [facility] [id number] [facility] 2020-05-24 13:16:03 2020-05-24 14:05:26 [facility] ..114 350.1.13.10 4.2.7.2.686 [id number] [facility] 2020-05-24 13:00:00 2020-05-24 13:00:00 Outpatient R NIA NELSONTANY [facility] [id number] [facility] 2020-05-19 13:00:00 2020-05-19 13:00:00 Outpatient R YOVANY DIOR [facility] [id number] [facility] 2020-05-19 00:00:00 2020-05-19 00:00:00 Orders Only Doctor Unassigned, [place] [facility] ..114 350.1.13.10 4.2.7.2.686 [id number] [facility] 2020-03-28 19:14:32 2020-03-28 19:51:01 Urgent Care Amaya Peña [facility] 1.84.114 350.1.13.10 4.2.7.2.686 [id number] [facility] 2020-03-28 19:20:00 2020-03-28 19:20:00 Outpatient R [facility] [id number] [facility] 2020-03-28 00:00:00 2020-03-28 00:00:00 Letter (Out) Doctor Unassigned, [place] [facility] 1.840.114 350.1.13.10 4.2.7.2.686 [id number] [facility] 2020-01-15 08:15:00 2020-01-15 08:15:00 Outpatient R [facility] [id number] [facility] 2019-03-12 14:26:14 2019-03-12 23:59:00 [facility] [id number] [facility] Results Test Description Test Time Test Comments Results Result Co mments Source [facility] with [id number] 06:29:27* Test Item Value Reference Range Interpretation [...] g/dL 31.6-35.1 L RDW-SD (test code = 33472-3) 39.6 fL 39.0-49.9 RDW-CV (test code = 788-0) 13.7 % 12.0-15.5 PLT (test code = 777-3) 426 166-358 H MPV (test code = 17664-1) 10.1 fL 9.5-12.9 NRBC/100 WBC (test code = 4763107611) 0.0 0.0-10.0 NRBC x10^3 (test code = 6460153683) See_Comment [Automated messa ge] The system which generated this result transmitted reference range: 10*3/?L. The reference range was not used to interpret this result as normal/abnormal. GRAN MAT (NEUT) % (test code = 770-8) 55.7 % IMM GRAN % (test code = 8486744492) 0.40 % LYMPH % (test code = 736-9) 37.1 % MONO % (test code = 5905-5) 5.6 % EOS % (test code = 713-8) 0.8 % BASO % (test code = 706-2) 0.4 % GRAN MAT x10^3(ANC) (test code = 8041477224) 5.34 10*3/uL 1.88-7.09 IMM GRAN x10^3 (test code = 3684513367) 0.04 10*3/uL 0.00-0.06 LYMPH x10^3 (test code = 731-0) 3.56 10*3/uL 1.32-3.29 H MONO x10^3 (test code = 742-7) 0.54 10*3/uL 0.33-0.92 EOS x10^3 (test code = 711-2) 0.08 10*3/uL 0.03-0.39 BASO x10^3 (test code = 704-7) 0.04 10*3/uL 0.01-0.07 Lab Interpretation (test code = 70925-0) Abnormal [facility] [id number] 05:12:00* Test Item Value Reference Range Interpretation Comme nts POCT PREG (test code = 1605) Negative On board controls acceptable with C Line (test code = 3574) Yes POCT PREG LOT # (test code = 3575) [id number] POCT PREG TEST DATE ( test code = 3576) 2025-03-09 Lab Interpretation (test cod e = 64592-4) Normal [facility] SARS-COV-2 ANTIGEN (BINAX NOW)2022-12-03 00:31:00* Test Item Value Reference Range Interpretation Comme nts POCT SARS-COV-2 ANTIGEN (test code = 77736-7) Not Detected Not Detected On board controls acceptable with C Line (test code = 3574) Yes VASHTI (test code = VASHTI) accurate developme nt and interpretation of all internal controls Lab Interpretation (test code = 06701-1) Normal [facility] ONLY - SYPHILIS [id number] 16:24:15* Test Item Value Reference Range Interpretation Comme nts Syphilis IgG/IgM (test code = 48348-1) Non-reactive Non-reactive VASHTI (test code = VASHTI) Non-reactive - No serologic evidence of T. pallidum infection. Cannot exclude incubating or early syphilis. Submit a second specimen in 2-4 weeks if syphilis is clinically suspected. Equivocal - Further testing to follow. Reactive - Further testing to follow. Lab Interpretation (test code = 44863-7) Normal [facility] ONLY - SYPHILIS [id number] 16:24:15* Test Item Value Reference Range Interpretation Comme nts Syphilis IgG/IgM (test code = 85511-8) Non-reactive Non-reactive VASHTI (test code = VASHTI) Non-reactive - No serologic evidence of T. pallidum infection. Cannot exclude incubating or early syphilis. Submit a second specimen in 2-4 weeks if syphilis is clinically suspected. Equivocal - Further testing to follow. Reactive - Further testing to follow. Lab Interpretation (test code = 62155-2) [facility] 07:09:19* Test Item Value Reference Range Interpretation Comme nts HGB A1C (test code = 4548-4) 5.3 % 4.0-5.7 VASHTI (test code = VASHTI) Reference RangesNormal: <5.7%Prediabetes: 5.7 - 6.4%Diabetes: > 6.5% Lab Interpretation (test code = 74314-6) [facility]2022-10-03 07:09:19* Test Item Value Reference Range Interpretation Comme nts HGB A1C (test code = 4548-4) 5.3 % 4.0-5.7 VASHTI (test code = VASHTI) Reference RangesNormal: <5.7%Prediabetes: 5.7 - 6.4%Diabetes: > 6.5% Lab Interpretation (test code = 44256-8) Normal [facility] 1/2 AG-AB WITH [id number] 06:09:39* Test Item Value Reference Range Interpretation Comme nts HIV Semi-quantitative (test code = 80917-6) 0.09 Negative VASHTI (test code = VASHTI) Non-reactive for HIV-1 antigen and HIV-1/HIV-2 antibodies. ?No laboratory evidence of HIV infection. ?Repeat in 2-4 weeks if acute HIV infection is suspected. [facility] [id number] 06:09:39* Test Item Value Reference Range Interpretation Comme nts HCV Ab (test code = 75715-9) Negative HCV Semi-Quantitative (test code = 30498-4) 0.03 [facility] 1/2 AG-AB WITH [id number] 06:09:39* Test Item Value Reference Range Interpretation Comme [facility] HIV Semi-quantitative (test code = 67359-0) 0.09 Negative VASHTI (test code = VASHTI) Non-reactive for HIV-1 antigen and HIV-1/HIV-2 antibodies. ?No laboratory evidence of HIV infection. ?Repeat in 2-4 weeks if acute HIV infection is suspected. [facility] [id number] 06:09:39* Test Item Value Reference Range Interpretation Comme nts HCV Ab (test code = 39157-3) Negative HCV Semi-Quantitative (test code = 65857-0) 0.03 [facility] WITH [id number] 05:35:17* Test Item Value Reference Range Interpretation [...] 31.7 g/dL 31.6-35.1 RDW-SD (test code = 87592-1) 38.7 fL 39.0-49.9 L RDW-CV (test code = 788-0) 13.0 % 12.0-15.5 PLT (test code = 777-3) 442 See_Comment H [Automated messa ge] The system which generated this result transmitted reference range: 166 - 358 10*3/?L. The reference range was not used to interpret this result as normal/abnormal. MPV (test code = 37364-9) 10.9 fL 9.5-12.9 NRBC/100 WBC (test code = 9604648214) 0.0 See_Comment [Automated Wheelz ssage] The system which generated this result transmitted reference range: 0.0 - 10.0 /100 WBCs. The reference range was not used to interpret this result as normal/abnormal. NRBC x10^3 (test code = 5352289452) See_Comment [Automated messa ge] The system which generated this result transmitted reference range: 10*3/?L. The reference range was not used to interpret this result as normal/abnormal. GRAN MAT (NEUT) % (test code = 770-8) 61.3 % IMM GRAN % (test code = 7915482391) 0.20 % LYMPH % (test code = 736-9) 32.8 % MONO % (test code = 5905-5) 4.5 % EOS % (test code = 713-8) 0.9 % BASO % (test code = 706-2) 0.3 % GRAN MAT x10^3(ANC) (test code = 6437237768) 6.11 10*3/uL 1.88-7.09 IMM GRAN x10^3 (test code = 1847230127) 0.00-0.06 LYMPH x10^3 (test code = 731-0) 3.27 10*3/uL 1.32-3.29 MONO x10^3 (test code = 742-7) 0.45 10*3/uL 0.33-0.92 EOS x10^3 (test code = 711-2) 0.09 10*3/uL 0.03-0.39 BASO x10^3 (test code = 704-7) 0.03 10*3/uL 0.01-0.07 Lab Interpretation (test code = 93901-6) Abnormal [facility] WITH [id number] 05:35:17* Test Item Value Reference Range Interpretation [...] 31.7 g/dL 31.6-35.1 RDW-SD (test code = 62464-1) 38.7 fL 39.0-49.9 L RDW-CV (test code = 788-0) 13.0 % 12.0-15.5 PLT (test code = 777-3) 442 See_Comment H [Automated messa ge] The system which generated this result transmitted reference range: 166 - 358 10*3/?L. The reference range was not used to interpret this result as normal/abnormal. MPV (test code = 78707-7) 10.9 fL 9.5-12.9 NRBC/100 WBC (test code = [id number]) 0.0 See_Comment [Automated me ssage] The system which generated this result transmitted reference range: 0.0 - 10.0 /100 WBCs. The reference range was not used to interpret this result as normal/abnormal. NRBC x10^3 (test code = [id number]) See_Comment [Automated messa ge] The system which generated this result transmitted reference range: 10*3/?L. The reference range was not used to interpret this result as normal/abnormal. GRAN MAT (NEUT) % (test code = 770-8) 61.3 % IMM GRAN % (test code = 1350109950) 0.20 % LYMPH % (test code = 736-9) 32.8 % MONO % (test code = 5905-5) 4.5 % EOS % (test code = 713-8) 0.9 % BASO % (test code = 706-2) 0.3 % GRAN MAT x10^3(ANC) (test code = 3464839626) 6.11 10*3/uL 1.88-7.09 IMM GRAN x10^3 (test code = 4168762030) 0.00-0.06 LYMPH x10^3 (test code = 731-0) 3.27 10*3/uL 1.32-3.29 MONO x10^3 (test code = 742-7) 0.45 10*3/uL 0.33-0.92 EOS x10^3 (test code = 711-2) 0.09 10*3/uL 0.03-0.39 BASO x10^3 (test code = 704-7) 0.03 10*3/uL 0.01-0.07 Lab Interpretation (test code = 40402-5) Abnormal [facility] [id number] 16:35:00* Test Item Value Reference Range Interpretation Comme nts POCT PREG (test code = 1605) Negative On board controls acceptable with C Line (test code = 3574) Yes POCT PREG LOT # (test code = 3575) POCT PREG TEST DATE ( test code = 3576) [facility] [id number] 16:35:00* Test Item Value Reference Range Interpretation Comme nts POCT PREG (test code = 1605) Negative On board controls acceptable with C Line (test code = 3574) Yes POCT PREG LOT # (test code = 3575) POCT PREG TEST DATE ( test code = 3576) [facility] [id number] 15:41:00* Test Item Value Reference Range Interpretation Comme nts POCT PREG (test code = 1605) Negative On board controls acceptable with C Line (test code = 3574) Yes POCT PREG LOT # (test code = 3575) POCT PREG TEST DATE ( test code = 3576) [facility] [id number] 15:41:00* Test Item Value Reference Range Interpretation Comme nts POCT PREG (test code = 1605) Negative On board controls acceptable with C Line (test code = 3574) Yes POCT PREG LOT # (test code = 3575) POCT PREG TEST DATE ( test code = 3576) [facility] [id number] 15:41:00* Test Item Value Reference Range Interpretation Comme nts POCT PREG (test code = 1605) Negative On board controls acceptable with C Line (test code = 3574) Yes POCT PREG LOT # (test code = 3575) POCT PREG TEST DATE ( test code = 3576) [facility] [id number] 15:41:00* Test Item Value Reference Range Interpretation Comme nts POCT PREG (test code = 1605) Negative On board controls acceptable with C Line (test code = 3574) Yes POCT PREG LOT # (test code = 3575) POCT PREG TEST DATE ( test code = 3576) [facility] [id number] 15:41:00* Test Item Value Reference Range Interpretation Comme nts POCT PREG (test code = 1605) Negative On board controls acceptable with C Line (test code = 3574) Yes POCT PREG LOT # (test code = 3575) POCT PREG TEST DATE ( test code = 3576) [facility]:42:23 ALCOHOL<10mg/dL03/03/2022 10:42 AM [facility]<10 [id number] Toxic>100 Depression of ASSISTANT FILM EDITOR>400 Fatalities ReportedUnNortheast [facility] HospitalBASIC METABOLIC PANEL (NA, K, CL, CO2, GLUCOSE, BUN, CREATININE, CA)2022-03-03 16:23:10* Test Item Value Reference Range Interpretation Comme nts NA (test code = 2318763382) 138 mmol/L 135-145 K (test code = 6428382798) 3.9 mmol/L 3.5-5.0 CL (test code = 2115693538) 106 mmol/L 98-108 CO2 TOTAL (test code = 8574671807) 24 mmol/L 23-31 AGAP (test code = 2058620056) 2-16 BUN (test code = 4793052610) 11 mg/dL 7-23 GLUCOSE (test code = 4891315848) 95 mg/dL 70-110 CREATININE (test code = 3060535222) 0.62 mg/dL 0.50-1.04 CALCIUM (test code = 6014922813) 9.4 mg/dL 8.6-10.6 eGFR (test code = 4705073559) mL/min/1.73m2 VASHTI (test code = VASHTI) Association [...] or urine or abnormalities in imaging tests). [facility] WITH [id number] 16:19:13* Test Item Value Reference Range Interpretation Comme nts WBC (test code = 6690-2) See_Comment [Automated Kogeto] The system which generated this result transmitted reference range: 4.30 - 11.10 10*3/?L. The reference range was not used to interpret this result as normal/abnormal. RBC (test code = 789-8) See_Comment [TRiQ] The system which generated this result transmitted [...] 32.8 g/dL 31.6-35.1 RDW-SD (test code = 02155-3) 38.5 fL 39.0-49.9 L RDW-CV (test code = 788-0) 12.9 % 12.0-15.5 PLT (test code = 777-3) See_Comment [Automated Kogeto] The system which generated this result transmitted reference range: 166 - 358 10*3/?L. The reference range was not used to interpret this result as normal/abnormal. MPV (test code = 41555-3) 10.2 fL 9.5-12.9 NRBC/100 WBC (test code = 6153445784) See_Comment [Automated me ssage] The system which generated this result transmitted reference range: 0.0 - 10.0 /100 WBCs. The reference range was not used to interpret this result as normal/abnormal. NRBC x10^3 (test code = 2004828436) See_Comment [Automated messa ge] The system which generated this result transmitted reference range: 10*3/?L. The reference range was not used to interpret this result as normal/abnormal. GRAN MAT (NEUT) % (test code = 770-8) 54.2 % IMM GRAN % (test code = 4503169703) 0.30 % LYMPH % (test code = 736-9) 39.1 % MONO % (test code = 5905-5) 5.1 % EOS % (test code = 713-8) 1.2 % BASO % (test code = 706-2) 0.1 % GRAN MAT x10^3(ANC) (test code = 2665935888) 3.94 10*3/uL 1.88-7.09 IMM GRAN x10^3 (test code = 8845961035) 0.00-0.06 LYMPH x10^3 (test code = 731-0) 2.84 10*3/uL 1.32-3.29 MONO x10^3 (test code = 742-7) 0.37 10*3/uL 0.33-0.92 EOS x10^3 (test code = 711-2) 0.09 10*3/uL 0.03-0.39 BASO x10^3 (test code = 704-7) 0.01-0.07 Lab Interpretation (test code = 45548-6) Abnormal [facility] [id number] 20:48:00* Test Item Value Reference Range Interpretation Comme nts POCT PREG (test code = 1605) Negative On board controls acceptable with C Line (test code = 3574) Yes POCT PREG LOT # (test code = 3575) POCT PREG TEST DATE ( test code = 3576) [facility] URINALYSIS W SPECIFIC [id number] 22:32:00* Test Item Value Reference Range Interpretation [...] development and interpretation of all internal controls [facility] URINALYSIS W SPECIFIC [id number] 22:32:00* Test Item Value Reference Range Interpretation [...] development and interpretation of all internal controls [facility] [id number] 15:36:00* Test Item Value Reference Range Interpretation Comme nts POCT PREG (test code = 1605) Negative On board controls acceptable with C Line (test code = 3574) Yes POCT PREG LOT # (test code = 3575) POCT PREG TEST DATE ( test code = 3576) [facility] Notes Date/Time Note Provider Source 2025-01-02 09:37:00 Regardinyof Patient having back pain seeking over the counter medication advise ----- 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 9:40 AM Called patient. Identification verified by two patient identifiers (name and date of ). "I was wanting to see what a good over the counter medication was for back pain. I want something I can try first before having to go to the ER." Adult Triage Assessment Last Clinic Visit: 04/10/24 in ED for headache Primary Symptom: pain (thinks she pulled a muscle in area where she had surgery before) Onset / Duration: 2 days ago Location / Description: lower back Pain / Severity: 01/01 Associated Symptoms: denies Fever / Method: denies Hydration: no changes to usual self Treatment so far: tylenol but did not relieve the pain Effect on ADL's: some change LMP: last month, 12/07/24 Pre-existing condition / Immunocompromised: denies Reason for Disposition [1] SEVERE back pain (e.g., excruciating, unable to do any normal activities) AND [2] not improved 2 hours after pain medicine Protocols used: Back Henu-[id number]-XA Disposition: After assessment, triage, and protocol review, patient advised to see provider within 4 hours and recommended ED. Patient will take ibuprofen or naproxen to see if it helps relieve the pain. Janeen Aguilar DNP, RN, [facility]- 01/02/25 9:49 AM [facility] 2024-09-11 10:19:36 Chief Complaint Patient presents with Vaginal Problem Burning and itching Irene Torres MA T [facility] 2024-08-20 15:44:28 Chief Complaint Patient presents with Nexplanon Insertion Deanne Pedersen MA T [facility] 2024-07-22 16:04:52 Chief Complaint Patient presents with Contraception Deanne Pedersen MA T [facility] 2024-04-11 01:25:30 Pt given printed and verbal [...] with steady gait, in no apparent distress. GER UTILITIES Jessika Rivera RN [facility] 2024-04-10 22:36:35 Pt arrived ambulatory without assist. Pt c/o headache that started this morning. Tylenol 500mg this AM, no meds since GER UTILITIES Melvina Regalado RN [facility] 2024-02-24 14:36:46 Chief Complaint Patient presents with Well Woman Exam Molly Arias LVN [facility] 2022-12-05 10:12:02 Formatting of this n ote might be different from the original. Called to speak with [facility] in [place]. They state they did not ever get the prescription. Contacted the patient and she also has not received the prescription. She is requesting they be resent to [facility] in [place]. Re-ordered original prescription and sent to [facility] per patient request. [facility] 2022-12-04 18:01:37 Formatting of this n ote might be different from the original. Thao Lang is a 27 year old female Trinidad from [facility] called stating [facility] are wanting the prescriptions transferred. Please advise azelastine 137 mcg (0.1 %) nasal spray brompheniramine-pseudoephe drine-DM (BROMFED DM) 2-30-10 mg/5 mL syrup fluticasone propionate 50 mcg/actuation nasal spray methylPREDNISolone (MEDROL, KRISTA,) 4 mg tablets [facility] Pharm[facility] [place], [place] - [address] [place] [address] AT [address] [place] [id number] [address] Mcleod [facility]
[2025-01-03] MEDS ORDERED: KETOROLAC 30 MG/ML INJ ONE (16:21)
[2025-01-03] MEDS ORDERED: METHOCARBAMOL 1,000 MG/10 ML VIAL ONE (16:21)
[2025-01-03] MEDS ORDERED: NA CHLORIDE 0.9% 100 ML ONE (16:22)
[2025-01-03] MEDS ORDERED: HYDROCODONE/APAP 7.5/325 MG TAB ONE (16:22)
--- NOTE | 2025-01-03 16:39 | RAD REPORT ---
EXAMINATION: XR PELVIS CLINICAL INDICATION: pelvic pain TECHNIQUE: AP Pelvis examination was obtained. COMPARISON: No prior exam. FINDINGS: No evidence of fracture or dislocation. Normal alignment. No radiographic evidence of AVN seen. IMPRESSION: No significant bone or joint abnormality.
[2025-01-03 16:56] LABS: Absolute Lymphocytes (CBC) 3.2 K/uL (0.7-4.9); Hematocrit 36.9 % (36.0-45.0); Hemoglobin 12.2 g/dL (12.0-15.0); MCH 25.1 pg (27.0-35.0); MCHC 32.9 g/dL (32.0-36.0); MCV 76.2 fL (80-100); MPV 8.7 fL (7.6-11.3); Nucleated RBC Absolute Count 0.0 (0-0); Nucleated Red Blood Cells % 0.1 % (0-0); RBC Red Blood Cell Count 4.84 M/uL (3.86-4.86); White Blood Count 12.30 thou/uL (4.3-10.9)
[2025-01-03 17:06] LABS: ALT/SGPT 20.0 U/L (13-56); AST/SGOT 11.0 U/L (15-37); Albumin 3.8 g/dL (3.4-5.0); Albumin/Globulin Ratio 1.0 (1.1-1.8); Alkaline Phosphatase 84.0 U/L (45-117); Anion Gap 8.8 mEq/L (5.0-15.0); BUN Blood Urea Nitrogen 13.0 mg/dL (7-18); Globulin 4.0 g/dL (2.3-3.5); Glucose Level 90.0 mg/dL (74-106); Lipase 45.0 U/L (13-75); Potassium 3.8 mEq/L (3.5-5.1)
[2025-01-03 17:40] LABS: Sqamous Epithelial 20-50 /HPF (None Seen); Urine Crystals Unidentified Few /HPF (None Seen); Urine Culture Reflex Order REFLEXED; Urine Microscopic Reflex YN ORDER UMIC; Urine WBC Clump Few /HPF (None Seen); Urine Yeast (Budding) Few /HPF (None Seen)
--- NOTE | 2025-01-03 18:11 | RAD REPORT ---
EXAMINATION: CT ABDOMEN AND PELVIS WITH CONTRAST CLINICAL INDICATION: low back pain;Abd pain TECHNIQUE: CT abdomen and pelvis was performed, after the administration of IV contrast, as [facility]. Axial, sagittal and coronal reconstructions were obtained. One or more of the following dose reduction techniques were used: Automated exposure control, adjustment of the mA and k V according to patient size, and iterative reconstruction. Unless otherwise specified, incidental findings do not require dedicated imaging follow-up. COMPARISON: 09/18/2022 FINDINGS: LOWER CHEST: The visualized lung bases are clear. LIVER: Mild fatty liver is present. No focal lesion or biliary dilatation is seen. Grossly unremark able gallbladder. SPLEEN: Normal size. No focal lesion. PANCREAS: No mass, ductal dilation, or radha-pancreatic fluid. ADRENALS: Normal; no mass. KIDNEYS: Normal size and contour. No hydronephrosis. GASTROINTESTINAL TRACT: No evidence of free air, significant intra-abdominal free fluid, bowel obstru ction or abscess. APPENDIX: Normal appendix. LYMPH NODES: No lymphadenopathy. MUSCULOSKELETAL: Mild multilevel spinal degenerative changes. ADDITIONAL FINDINGS: Small fat-containing umbilical hernia. IMPRESSION: No acute or concerning abnormalities seen in the abdomen or pelvis.
[2025-01-03] MEDS ORDERED: CIPROFLOXACIN HCL 500 MG TAB ONE (18:29)
[2025-01-03] MEDS ORDERED: CEFTRIAXONE 2000 MG/VIAL ONE (18:29)
--- NOTE | 2025-01-03 18:52 | EDPHYS ---
Physician Documentation [facility] Name: Thao Lang Age: 29 yrs Sex: Female : 1995 Arrival Date: 01/03/2025 Time: 14:26 Bed 13 Private MD: ED Physician eDlta Patel HPI: 01/03 15:15 This 29 yrs old Female presents to ER via Ambulatory with complaints of Low cp Back Pain, Pelvic Pain, Back Pain. 15:15 The patient presents with pain that is acute, with no known mechanism of injury. The cp symptoms are located in the low back area. The pain radiates to the lower abdomen and pelvis and hips. The problem was sustained after standing up fast this past Saturday, pain started in low back. 15:15 Associated signs and symptoms: Pertinent negatives: dysuria, fever, incontinence, cp weakness, vaginal bleeding, vaginal discharge. 15:15 Severity of symptoms: in the emergency department the symptoms are unchanged, despite cp home interventions. 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 - Infectious Disease History:: Denies. - Social history:: Smoking status: Reported history of juuling and/or vaping. ROS: 15:20 Constitutional: Negative for body aches, chills, fever, poor PO intake, cp 15:20 Eyes: Negative for injury, pain, redness, and discharge, cp 15:20 ENT: Negative for drainage from ear(s), ear pain, sore throat, difficulty swallowing, difficulty handling secretions, 15:20 Cardiovascular: Negative for chest pain, edema, palpitations, 15:20 Respiratory: Negative for cough, shortness of breath, wheezing, 15:20 Abdomen/GI: Positive for abdominal pain, of the lower abdomen, Negative for vomiting, diarrhea, constipation, 15:20 Back: Positive for pain at rest, pain with movement, of the low back area, 15:20 : Negative for vaginal bleeding, vaginal discharge, 15:20 Neuro: Negative for altered mental status, dizziness, headache, numbness, weakness, 15:20 All other systems are negative, Exam: 15:25 Constitutional: The patient appears in no acute distress, alert, awake, non-toxic, well cp developed, well nourished, obese, uncomfortable, 15:25 Head/Face: Normocephalic, atraumatic. cp 15:25 Eyes: Periorbital structures: appear normal, Conjunctiva: normal, no exudate, no injection, Sclera: no appreciated abnormality, Lids and lashes: appear normal, bilaterally, 15:25 ENT: External ear(s): are unremarkable, Nose: is normal, Mouth: Lips: moist, Oral mucosa: moist, Posterior pharynx: Airway: no evidence of obstruction, patent, 15:25 Neck: ROM/movement: is normal, is supple, without pain, no range of motions limitations, 15:25 Chest/axilla: Inspection: normal, 15:25 Cardiovascular: Rate: normal, 15:25 Respiratory: the patient does not display signs of respiratory distress, Respirations: normal, no use of accessory muscles, no retractions, labored breathing, is not present, Breath sounds: are clear throughout, no decreased breath sounds, no stridor, no wheezing, 15:25 Abdomen/GI: Inspection: obese Bowel sounds: active, all quadrants, Palpation: soft, in all quadrants, moderate abdominal tenderness, in the lower abdomen, rebound tenderness, is not appreciated, involuntary guarding, is not appreciated, 15:25 Back: pain, that is moderate, of the low back area, ROM is painful, with all movement, 15:25 Neuro: Motor: moves all fours, strength is normal, Sensation: no obvious gross deficits, Gait: is steady, Vital Signs: 14:56 BP 120 / 76; Pulse 86; Resp 16; Temp 98; Pulse Ox 100% ; Weight 124.74 kg; Height 5 ft. dd2 3 in. ; Pain 9/10; 16:45 BP 108 / 65; Pulse 94; Resp 20; Pulse Ox 99% on R/A; kj2 17:45 BP 110 / 67; Pulse 77; Resp 18; Pulse Ox 99% on R/A; kj2 18:45 BP 105 / 65; Pulse 68; Resp 20; Temp 98; Pulse Ox 100% ; kj2 19:08 BP 120 / 84; Pulse 76; Resp 18; Temp 98; Pulse Ox 100% ; kj2 14:56 Body Mass Index 48.71 (124.74 kg, 160.02 cm) dd2 14:56 Pain Scale: Adult dd2 MDM: 14:53 Medical Screening Exam initiated cp 18:50 Data reviewed: vital signs, nurses notes, lab test result(s), radiologic studies, CT cp scan, plain films, and as a result, I will discharge patient. 18:50 Differential diagnosis: sciatica, Herniated disc UTI, pyelonephritis, pid. I considered cp the following discharge prescriptions or medication management in the emergency department Medications were administered in the Emergency Department. See MAR. Counseling: I had a detailed discussion with the patient and/or guardian regarding the historical points, exam findings, and any diagnostic results supporting the discharge/admit diagnosis, lab results, radiology results, the need for outpatient follow up, a family practitioner, to return to the emergency department if symptoms worsen or persist or if there are any questions or concerns that arise at home. Response to treatment: the patient's symptoms have mildly improved after treatment, and as a result, I will discharge patient. 01/03 15:03 Order name: CBC with Diff; Complete Time: 17:18 cp 01/03 17:18 Interpretation: Normal except: WBC 12.30; MCV 76.2; MCH 25.1; RDW 15.4; NEUT A 8.3. cp 01/03 15:03 Order name: CMP; Complete Time: 17:18 cp 01/03 15:03 Order name: Lipase; Complete Time: 17:18 cp 01/03 15:03 Order name: Test, Urine; Complete Time: 18:19 cp 01/03 15:03 Order name: UA Rfx Binh Cult if indicated; Complete Time: 18:19 cp 01/03 17:51 Order name: Urine Culture EDMS 01/03 16:13 Order name: XRAY Pelvis; Complete Time: 16:54 cp 01/03 17:19 Order name: CT Abd/Pelvis - IV Contrast Only; Complete Time: 18:19 cp 01/03 18:20 Interpretation: Report reviewed. cp 01/03 15:03 Order name: IV Saline Lock; Complete Time: 16:45 cp 01/03 15:03 Order name: Labs collected and sent; Complete Time: 16:45 cp Administered Medications: 16:27 Drug: Hydrocodone-Acetaminophen PO (7.5 mg-325 mg) 1 tabs PO once; RASS on ADMIN: kj2 Combtv4, Very Agttd3, Agttd2, Rstlss1, AlertClm0, Drwsy-1, Lt Sdtn-2, Mod Sdtn-3, Dp Sdtn-4, UnArsble-5 Route: PO; 17:00 Follow up: Response: Pain is decreased kj2 16:44 Drug: Ketorolac IVP 30 mg IVP once; if test negative Route: IVP; Site: right kj2 antecubital; 17:30 Follow up: Response: No adverse reaction kj2 16:44 Drug: Methocarbamol IVPB 1 grams IVPB once over 1 hrs; (mix in NS 100 mL) Route: IVPB; kj2 Infused Over: 1 hrs; Site: right antecubital; 17:44 Follow up: IV Status: Completed infusion; IV Intake: 100ml kj2 18:35 Drug: Rocephin IV 2 grams IV at calculated rate once; Given slow IV push per pharmarcy kj2 instructions Route: IV; Rate: calculated rate; Site: right antecubital; 18:35 Drug: Ciprofloxacin PO 500 mg PO once Route: PO; kj2 18:58 Follow up: Response: No adverse reaction kj2 Disposition: 01/04 07:01 Co-signature as Attending Physician, Delta Patel MD I reviewed the patient's care rn provided by the Advanced Practice Provider and agree with the diagnosis and treatment plan. Disposition Summary: 01/03/25 18:51 Discharge Ordered Notes: Location: Home cp Problem: new cp Symptoms: have improved cp Condition: Stable cp Diagnosis - UTI/ Urinary tract infection, site not specified cp - Low back pain cp - Lower abdominal pain, unspecified cp Followup: cp - With: Private Physician - When: 2 - 3 days - Reason: Worsening of condition Discharge Instructions: - Abdominal Pain, Adult cp - Acute Back Pain, Adult cp - Urinary Tract Infection, Adult cp - Back Exercises cp - Discharge Summary Sheet db Forms: - Medication Reconciliation Form cp - Antibiotic Education cp - Prescription Opioid Use cp - Patient Portal Instructions cp - Leadership Thank You Letter cp - Work release form db Prescriptions: - Cipro 500 mg Oral Tablet - take 1 tablet ORAL route every 12 hours for 7 days; 14 tablet; Refills: 0, cp Product Selection Permitted - Diclofenac Sodium 75 mg Oral Tablet Sustained Release - take 1 tablet ORAL route 2 times per day; 30 tablet; Refills: 0, Product cp Selection Permitted - cefpodoxime 200 mg Oral tablet - take 1 tablet ORAL route every 12 hours for 7 days with food; 14 tablet; cp Refills: 0, Product Selection Permitted - methocarbamol 750 mg Oral tablet - take 1 tablet ORAL route 3-4 times daily; 30 tablet; Refills: 0, Product cp Selection Permitted Signatures: Dispatcher [employer] [facility] Delta Patel MD MD rn Page, Corey, PA-C PAIsabelle Burris cp RN RN kj2 AARON CISNEROS RN RN dd2 Corrections: (The following items were deleted from the chart) 01/03 16:13 16:13 Pelvis+[email or web address] ordered. [facility] 01/04 04:20 01/03 15:15 The problem was sustained from unknown cause, cp cp
--- NOTE | 2025-01-03 18:52 | ER ---
Nurse's Notes [facility] Name: Thao Lang Age: 29 yrs Sex: Female : 1995 Arrival Date: 01/03/2025 Time: 14:26 Bed 13 Private MD: Diagnosis: UTI/ Urinary tract infection, site not specified;Low back pain;Lower abdominal pain, unspecified Presentation: 01/03 14:53 Chief complaint: Patient states: she stood up fast Rodney morning and felt pop lower dd2 back and now having pain to lower back and cayla hips. Coronavirus screen: At this time, the client does not indicate any symptoms associated with coronavirus-19. Ebola Screen: No symptoms or risks identified at this time. Risk Assessment: Do you want to hurt yourself or someone else? Patient reports no desire to harm self or others. Onset of symptoms was January 01, 2025. 14:53 Method Of Arrival: Ambulatory dd2 14:53 Acuity: IZABELLA 3 dd2 15:00 Initial Sepsis Screen: Does the patient meet any 2 criteria? No. Patient's initial dd2 sepsis screen is negative. Does the patient have a suspected source of infection? No. Patient's initial sepsis screen is negative. Triage Assessment: 14:56 General: Appears in no apparent distress. uncomfortable, Behavior is calm, cooperative, dd2 appropriate for age. Pain: Complains of pain in low back area, left hip and right hip. Musculoskeletal: Circulation, motion, and sensation intact. Range of motion: intact in all extremities, Reports pain in low back area, left hip and right hip. [employer]: 14:56 LMP 12/07/2024, unknown dd2 Historical: - Allergies: 14:56 No Known Allergies; dd2 - PMHx: 14:56 Asthma; Bipolar disorder; ectopic ; Schizophrenia; dd2 - PSHx: 14:56 section; D\T\C; dd2 - Immunization history:: Adult Immunizations unknown. - Infectious Disease History:: Denies. - Social history:: Smoking status: Reported history of juuling and/or vaping. Screenin:42 [facility] ED Fall Risk Assessment (Adult) History of falling in the last 3 months, kj2 including since admission No falls in past 3 months (0 pts) Confusion or Disorientation No (0 pts) Intoxicated or Sedated No (0 pts) Impaired Gait No (0 pts) Mobility Assist Device Used No (0 pt) Altered Elimination No (0 pt) Score/Fall Risk Level 0 - 2 = Low Risk Maintained a safe environment, Hourly rounding (assess needs \T\ fall precautionary measures) done. Abuse screen: Denies threats or abuse. Denies injuries from another. Nutritional screening: No deficits noted. Tuberculosis screening: No symptoms or risk factors identified. Assessment: 15:40 General: Appears in no apparent distress. Behavior is cooperative. Pain: Complains of kj2 pain in back and low back area Pain currently is 7 out of 10 on a pain scale. Neuro: Level of Consciousness is awake, alert, obeys commands, Oriented to person, place, time, situation. Cardiovascular: Patient's skin is warm and dry. Respiratory: Airway is patent Respiratory effort is unlabored. GI: No signs and/or symptoms were reported involving the gastrointestinal system. : No signs and/or symptoms were reported regarding the genitourinary system. 16:45 Reassessment: Patient appears in no apparent distress at this time. Patient and/or kj2 family updated on plan of care and expected duration. Pain level reassessed. Patient is alert, oriented x 3, equal unlabored respirations, skin warm/dry/pink. 17:45 Reassessment: Patient appears in no apparent distress at this time. Patient and/or kj2 family updated on plan of care and expected duration. Pain level reassessed. Patient is alert, oriented x 3, equal unlabored respirations, skin warm/dry/pink. 18:45 Reassessment: Patient appears in no apparent distress at this time. Patient and/or kj2 family updated on plan of care and expected duration. Pain level reassessed. Patient is alert, oriented x 3, equal unlabored respirations, skin warm/dry/pink. Vital Signs: 14:56 BP 120 / 76; Pulse 86; Resp 16; Temp 98; Pulse Ox 100% ; Weight 124.74 kg; Height 5 ft. dd2 3 in. ; Pain 9/10; 16:45 BP 108 / 65; Pulse 94; Resp 20; Pulse Ox 99% on R/A; kj2 17:45 BP 110 / 67; Pulse 77; Resp 18; Pulse Ox 99% on R/A; kj2 18:45 BP 105 / 65; Pulse 68; Resp 20; Temp 98; Pulse Ox 100% ; kj2 19:08 BP 120 / 84; Pulse 76; Resp 18; Temp 98; Pulse Ox 100% ; kj2 14:56 Body Mass Index 48.71 (124.74 kg, 160.02 cm) dd2 14:56 Pain Scale: Adult dd2 ED Course: 14:30 Patient arrived in ED. im 14:31 Driss Mckeon PA-C is PHCP. cp 14:31 Delta Patel MD is Attending Physician. cp 14:56 Triage completed. dd2 15:39 Isabelle Zavala, LARON is Primary Nurse. kj2 15:43 Patient has correct armband on for positive identification. Bed in low position. Call kj2 light in reach. Provided Education on: call light. 16:36 XRAY Pelvis In Process Unspecified. EDMS 16:44 Inserted saline lock: 20 gauge in right antecubital area, using aseptic technique. kj2 Blood collected. Flushed with 10 mL NS. 17:27 Radiology exam delayed due to test not completed at this time. sm9 18:05 CT Abd/Pelvis - IV Contrast Only In Process Unspecified. EDMS 18:58 No provider procedures requiring assistance completed. IV discontinued, intact, kj2 bleeding controlled, No redness/swelling at site. Pressure dressing applied. Administered Medications: 16:27 Drug: Hydrocodone-Acetaminophen PO (7.5 mg-325 mg) 1 tabs PO once; RASS on ADMIN: kj2 Combtv4, Very Agttd3, Agttd2, Rstlss1, AlertClm0, Drwsy-1, Lt Sdtn-2, Mod Sdtn-3, Dp Sdtn-4, UnArsble-5 Route: PO; 17:00 Follow up: Response: Pain is decreased kj2 16:44 Drug: Ketorolac IVP 30 mg IVP once; if test negative Route: IVP; Site: right kj2 antecubital; 17:30 Follow up: Response: No adverse reaction kj2 16:44 Drug: Methocarbamol IVPB 1 grams IVPB once over 1 hrs; (mix in NS 100 mL) Route: IVPB; kj2 Infused Over: 1 hrs; Site: right antecubital; 17:44 Follow up: IV Status: Completed infusion; IV Intake: 100ml kj2 18:35 Drug: Rocephin IV 2 grams IV at calculated rate once; Given slow IV push per pharmarcy kj2 instructions Route: IV; Rate: calculated rate; Site: right antecubital; 18:35 Drug: Ciprofloxacin PO 500 mg PO once Route: PO; kj2 18:58 Follow up: Response: No adverse reaction kj2 Medication: 18:58 VIS not applicable for this client. kj2 Intake: 17:44 IV: 100ml; Total: 100ml. kj2 Outcome: 18:51 Discharge ordered by . mac 18:58 Discharged to home ambulatory, kj2 18:58 Condition: stable 18:58 Discharge instructions given to patient, family, Instructed on discharge instructions, follow up and referral plans. Demonstrated understanding of instructions, follow-up care, 19:15 Patient left the ED. kj2 Signatures: Dispatcher [employer] EDMS Driss Mckeon PA-C PA-C cp Mendoza, Itzel im McGilbery, Sarah sm9 Isabelle Zavala RN RN kj2 AARON CISNEROS RN RN dd2
[2025-01-04 00:55] VITALS: TEMP 98
[2025-01-04 01:00] VITALS: O2SAT 100
[2025-01-04 01:01] VITALS: BP 120/84
== END 2025-01-03 19:15 | disposition home or self-care (01) ==
LOC: ER 14:26
DX: N39.0 Urinary tract infection, site not specified (principal); R10.30 Lower abdominal pain, unspecified
CPT/HCPCS: 96365; 87088; 85025; 81001; 87086; 36415; 81025; 83690; 80053; 74177; 72170; 96375; 99284; Q9967; J1885; J2800; J0696